=== PATIENT | male | born 1940 | race Hispanic/Latino ===

== ENCOUNTER 2017-01-14 16:28 | Emergency (ER) | payer MEDICARE, OTHER ==
[2017-01-14 17:46] LABS: Basophils % (Auto) 0.6 % (0.0-1.8); Hematocrit 36.7 % (35.5-45.6); Hemoglobin 11.9 gm/dl (11.8-15.2); Mean Corpuscular HGB Conc 32 % (32-34); Mean Corpuscular Hemoglobin 32 pg (28-32); Mean Corpuscular Volume 98 fl (84-94); Platelet Count 170 K/mm3 (140-440); Red Blood Count 3.73 M/mm3 (3.65-5.03); Red Cell Distribution Width 15.7 % (13.2-15.2); White Blood Count 9.4 K/mm3 (4.5-11.0)
[2017-01-14 18:06] LABS: BUN/Creatinine Ratio 10.47; Calcium 9.6 mg/dL (8.4-10.2); Potassium 5.9 mmol/L (3.6-5.0)
[2017-01-14] MEDS ORDERED: XYLOCAINE 1% MPF 5 mL INFILTRATI ONE (19:12)
[2017-01-14] MEDS ORDERED: ROCEPHIN IM ONE (19:12)
[2017-01-14] MEDS ORDERED: DECADRON IM ONE (19:13)
[2017-01-14 19:35] LABS: BUN/Creatinine Ratio 6.66; Calcium 8.5 mg/dL (8.4-10.2); Chloride 99.5 mmol/L (98-107)
[2017-01-14 19:56] LABS: Potassium 4.2 mmol/L (3.6-5.0)
--- NOTE | 2017-01-14 20:00 | Emergency Department Report ---
- General Chief Complaint: Upper Respiratory Infection Stated Complaint: CHEST CONGESTION Time Seen by Provider: 01/14/17 19:12 Source: patient Mode of arrival: Ambulatory Limitations: No Limitations - History of Present Illness MD Complaint: cough, rhinorrhea, nasal congestion -: Gradual Severity: mild Severity scale (0 -10): 3 Consistency: constant Improves With: nothing Worsens With: nothing Associated Symptoms: cough. denies: fever, chills, myalgias, diaphoresis, headache, rhinorrhea, stiff neck, chest pain, shortness of breath, abdominal pain, rash, confusion, right sweats, weight loss - Related Data Home Medications Medication Instructions Recorded Confirmed Last Taken Allopurinol [Zyloprim] 100 mg PO QDAY 05/01/15 10/03/15 10/02/15 Aspirin [Aspirin BABY CHEW TAB] 81 mg PO QDAY 05/01/15 10/03/15 10/02/15 Baking Soda 0.25 tsp PO DAILY 05/01/15 05/01/15 10/02/15 Carvedilol [Carvedilol] 6.25 mg PO BID 05/01/15 10/03/15 10/03/15 05:00 Doxazosin [Cardura] 4 mg PO BID 05/01/15 10/03/15 10/03/15 05:00 Fenofibrate [Fenofibrate] 160 mg PO DAILY 05/01/15 10/03/15 10/02/15 Ferrous Sulfate [Feosol] 325 mg PO BID 05/01/15 10/03/15 10/02/15 Insulin Glargine,Hum.rec.anlog 30 units SUB-Q HS 05/01/15 10/03/15 10/02/15 [Lantus Solostar] Losartan [Cozaar] 100 mg PO QDAY 05/01/15 10/03/15 10/03/15 05:00 Multivit-Min/Iron Fum/Folic AC 1 each PO DAILY 05/01/15 10/03/15 10/02/15 [Ngspp-Igeelbt-Uiicuozd Tablet] [place]-3 Fatty Acids/Fish Oil [Fish 1 each PO DAILY 05/01/15 10/03/15 10/02/15 Oil] Simvastatin [Simvastatin] 40 mg PO DAILY 05/01/15 10/03/15 10/02/15 Previous Rx's Medication Instructions Recorded Last Taken Type HYDROcodone/APAP 5-325 [[place] 1 - 2 each PO Q4HR PRN #30 tablet 05/03/15 Unknown Rx 5/325] Azithromycin [Zithromax Z-AJITH] 250 mg PO DAILY #5 tablet 01/14/17 Unknown Rx Allergies Allergy/AdvReac Type Severity Reaction Status Date / Time No Known Allergies Allergy Verified 05/01/15 08:52 ED Review of Systems ROS: Stated complaint: CHEST CONGESTION Other details as noted in HPI Comment: All other systems reviewed and negative ED Past Medical Hx - Past Medical History Hx Hypertension: Yes Hx Heart Attack/AMI: No (EKG 09/21/13: SR 71) Hx Diabetes: Yes (on insulin) Hx Renal Disease: Yes Hx Seizures: No Hx Kidney Stones: Yes Hx Asthma: Yes (as a child) Hx HIV: No - Surgical History Past Surgical History?: No - Social History Smoking Status: Former Smoker Substance Use Type: None - Medications Home Medications: Home Medications Medication Instructions Recorded Confirmed Last Taken Type Allopurinol [Zyloprim] 100 mg PO QDAY 05/01/15 10/03/15 10/02/15 History Aspirin [Aspirin BABY CHEW TAB] 81 mg PO QDAY 05/01/15 10/03/15 10/02/15 History Baking Soda 0.25 tsp PO DAILY 05/01/15 05/01/15 10/02/15 History Carvedilol [Carvedilol] 6.25 mg PO BID 05/01/15 10/03/15 10/03/15 05:00 History Doxazosin [Cardura] 4 mg PO BID 05/01/15 10/03/15 10/03/15 05:00 History Fenofibrate [Fenofibrate] 160 mg PO DAILY 05/01/15 10/03/15 10/02/15 History Ferrous Sulfate [Feosol] 325 mg PO BID 05/01/15 10/03/15 10/02/15 History Insulin Glargine,Hum.rec.anlog 30 units SUB-Q HS 05/01/15 10/03/15 10/02/15 History [Lantus Solostar] Losartan [Cozaar] 100 mg PO QDAY 05/01/15 10/03/15 10/03/15 05:00 History Multivit-Min/Iron Fum/Folic AC 1 each PO DAILY 05/01/15 10/03/15 10/02/15 History [Rfzsp-Litgjkr-Zxnyudcs Tablet] [place]-3 Fatty Acids/Fish Oil [Fish 1 each PO DAILY 05/01/15 10/03/15 10/02/15 History Oil] Simvastatin [Simvastatin] 40 mg PO DAILY 05/01/15 10/03/15 10/02/15 History HYDROcodone/APAP 5-325 [[place] 1 - 2 each PO Q4HR PRN #30 tablet 05/03/15 Unknown Rx 5/325] Azithromycin [Zithromax Z-AJITH] 250 mg PO DAILY #5 tablet 01/14/17 Unknown Rx ED Physical Exam - General Limitations: No Limitations General appearance: alert, in no apparent distress - Head Head exam: Present: atraumatic, normocephalic - Eye Eye exam: Present: normal appearance, PERRL, EOMI - ENT ENT exam: Present: normal exam, normal orophraynx, mucous membranes moist - Neck Neck exam: Present: normal inspection - Respiratory Respiratory exam: Present: normal lung sounds bilaterally. Absent: respiratory distress, wheezes, rales, rhonchi, stridor - Cardiovascular Cardiovascular Exam: Present: regular rate, normal rhythm. Absent: systolic murmur, diastolic murmur, rubs, gallop - GI/Abdominal GI/Abdominal exam: Present: soft, normal bowel sounds - Rectal Rectal exam: Present: deferred - Extremities Exam Extremities exam: Present: normal inspection - Back Exam Back exam: Present: normal inspection - Neurological Exam Neurological exam: Present: alert, oriented X3 - Psychiatric Psychiatric exam: Present: normal affect, normal mood - Skin Skin exam: Present: warm, dry, intact, normal color. Absent: rash ED Course Vital Signs 01/14/17 01/14/17 17:08 18:51 Temperature 99.9 F H Pulse Rate 79 77 Respiratory 16 16 Rate Blood Pressure 152/69 Blood Pressure 156/64 [Left] O2 Sat by Pulse 93 92 Oximetry ED Medical Decision Making - Lab Data Result diagrams: 01/14/17 17:29 01/14/17 18:56 - Radiology Data Radiology results: report reviewed, image reviewed - Medical Decision Making patient doing well, rocephin and decadron given here , will do prescrption for possible bronchitis, dc and follow up Critical care attestation.: If time is entered above; I have spent that time in minutes in the direct care of this critically ill patient, excluding procedure time. ED Disposition Clinical Impression: Bronchitis Disposition: TO HOME OR SELFCARE Is pt being admited?: No Does the pt Need Aspirin: No Condition: Good Instructions: Chronic Bronchitis (ED), Acute Bronchitis (ED) Prescriptions: Azithromycin [Zithromax Z-AJITH] 250 mg PO DAILY #5 tablet Referrals: PRIMARY CARE, [Primary Care Provider] - 3-5 Days Time of Disposition: 20:00
[2017-01-14 20:17] VITALS: BP 162/65
--- NOTE | 2017-01-15 07:39 | XRay Report ---
ROUTINE CHEST, TWO VIEWS: HISTORY: Shortness of breath. The trachea, heart, mediastinal contour, lung maya and bony thorax are unremarkable. IMPRESSION: No acute cardiopulmonary process.
== END 2017-01-14 20:14 | disposition home or self-care (01) ==
LOC: ED 16:28
DX: J40 Bronchitis, not specified as acute or chronic (principal); I10 Essential (primary) hypertension; E11.9 Type 2 diabetes mellitus without complications; J45.909 Unspecified asthma, uncomplicated; Z87.891 Personal history of nicotine dependence; Z79.4 Long term (current) use of insulin; Z79.82 Long term (current) use of aspirin
CPT/HCPCS: 36415; 71020; 80048; 85025; 87040; 93005; 93010; 96372; 99284; J0696; J1100

== ENCOUNTER 2019-07-04 16:03 | Inpatient (IN) | payer MEDICARE, OTHER ==
[2019-07-04 17:27] LABS: Basophils # (Auto) 0.1 K/mm3 (0.0-0.1); Basophils % (Auto) 1.1 % (0.0-1.8); Eosinophils # (Auto) 0.2 K/mm3 (0.0-0.4); Eosinophils % (Auto) 2.4 % (0.0-4.3); Hematocrit 32.3 % (35.5-45.6); Hemoglobin 10.9 gm/dl (11.8-15.2); Lymphocytes # (Auto) 0.9 K/mm3 (1.2-5.4); Lymphocytes % (Auto) 14.1 % (13.4-35.0); Mean Corpuscular HGB Conc 34 % (32-34); Mean Corpuscular Volume 98 fl (84-94); Monocytes # (Auto) 0.5 K/mm3 (0.0-0.8); Monocytes % (Auto) 8.2 % (0.0-7.3); Platelet Count 208 K/mm3 (140-440); Red Cell Distribution Width 16.8 % (13.2-15.2)
[2019-07-04 17:41] LABS: INR 0.96 (0.87-1.13)
[2019-07-04 17:42] LABS: Partial Thromboplastin Time 35.8 Sec. (24.2-36.6)
[2019-07-04 17:52] LABS: Albumin 3.7 g/dL (3.9-5); Calcium 9.1 mg/dL (8.4-10.2)
--- NOTE | 2019-07-04 18:09 | Cat Scan Report ---
CT BRAIN: 07/04/2019 INDICATION / CLINICAL INFORMATION: ams. COMPARISON: None available. FINDINGS: BRAIN/INTRACRANIAL STRUCTURES: Unenhanced CT images of the brain demonstrate no evidence of acute int racranial abnormality. Ventricles and sulci are prominent in size, consistent with diffuse cerebral atrophy. Chronic white matter hypoattenuation is present throughout the cerebral hemispheric white matter. There is no evidence of acute ischemic injury, hemorrhage, or mass. There are no abnormal extra-axial fluid collections. Atherosclerotic vascular calcifications are present in the distal internal carotid arteries and verte bral arteries. EXTRACRANIAL STRUCTURES: Unremarkable. IMPRESSION: No acute abnormality. Chronic and age-related changes. All CT scans at this location are performed using dose reduction to ALARA by means of automated expos ure control. Signer Name: Jimmy Anderson MD Signed: 07/04/2019 6:04 PM Workstation Name: [id number]
--- NOTE | 2019-07-04 18:24 | Emergency Department Report ---
ED Altered Mental Status HPI - General Chief Complaint: Altered Mental Status Stated Complaint: AMS Time Seen by Provider: 07/04/19 17:11 Source: EMS Mode of arrival: Stretcher Limitations: Altered Mental Status - History of Present Illness Initial Comments: 79-year-old male with history of ESRD, anemia, diabetes, hypertension, presents the ED with altered mental status. Patient was undergoing dialysis when he reportedly began to have hallucinations. Patient was able to finish dialysis and was then transported to the ED. Patient's caregiver is at bedside. She states patient started to become altered for unable to walk 3 days ago. Reports patient has had several falls over the last 3 days. Caregiver states he had fallen on floor this morning when she picked him up for dialysis. Patient has bruises to his hands. He denies any pain. He is currently alert and oriented to self and time. Denies alcohol use. MD Complaint: altered mental status -: days(s) (3) Severity: moderate Consistency of Symptoms: constant Context: unknown Associated Symptoms: denies: chest pain, headaches - Related Data Home Medications Medication Instructions Recorded Confirmed Last Taken Aspirin [Aspirin BABY CHEW TAB] 81 mg PO QDAY 05/01/15 10/03/15 10/02/15 Baking Soda 0.25 tsp PO DAILY 05/01/15 05/01/15 10/02/15 Carvedilol 6.25 mg PO BID 05/01/15 10/03/15 10/03/15 05:00 Doxazosin [Cardura] 4 mg PO BID 05/01/15 10/03/15 10/03/15 05:00 Fenofibrate 160 mg PO DAILY 05/01/15 10/03/15 10/02/15 Ferrous Sulfate [Feosol] 325 mg PO BID 05/01/15 10/03/15 10/02/15 Insulin Glargine,Hum.rec.anlog 30 units SUB-Q HS 05/01/15 10/03/15 10/02/15 [Lantus Solostar] Losartan [Cozaar] 100 mg PO QDAY 05/01/15 10/03/15 10/03/15 05:00 Multivit-Min/Iron Fum/Folic AC 1 each PO DAILY 05/01/15 10/03/15 10/02/15 [Ucpej-Yqbhnla-Mictkkov Tablet] [place]-3 Fatty Acids/Fish Oil [Fish 1 each PO DAILY 05/01/15 10/03/15 10/02/15 Oil] Simvastatin 40 mg PO DAILY 05/01/15 10/03/15 10/02/15 allopurinoL [Zyloprim] 100 mg PO QDAY 05/01/15 10/03/15 10/02/15 Previous Rx's Medication Instructions Recorded Last Taken Type HYDROcodone/APAP 5-325 [[place] 1 - 2 each PO Q4HR PRN #30 tablet 05/03/15 Unknown Rx 5/325] Azithromycin [Zithromax Z-AJITH] 250 mg PO DAILY #5 tablet 01/14/17 Unknown Rx Allergies Allergy/AdvReac Type Severity Reaction Status Date / Time No Known Allergies Allergy Verified 05/01/15 08:52 ED Review of Systems ROS: Stated complaint: AMS Other details as noted in HPI Comment: All other systems reviewed and negative Constitutional: denies: fever Respiratory: denies: cough, shortness of breath Cardiovascular: denies: chest pain Gastrointestinal: denies: abdominal pain, vomiting Neurological: denies: headache ED Past Medical Hx - Past Medical History Previous Medical History?: Yes Hx Hypertension: Yes Hx Heart Attack/AMI: No (EKG 09/21/13: SR 71) Hx Diabetes: Yes (on insulin) Hx Renal Disease: Yes Hx Seizures: No Hx Kidney Stones: Yes Hx Asthma: Yes (as a child) Hx HIV: No - Surgical History Additional Surgical History: fistula to left arm - Social History Smoking Status: Unknown if ever smoked - Medications Home Medications: Home Medications Medication Instructions Recorded Confirmed Last Taken Type Aspirin [Aspirin BABY CHEW TAB] 81 mg PO QDAY 05/01/15 10/03/15 10/02/15 History Baking Soda 0.25 tsp PO DAILY 05/01/15 05/01/15 10/02/15 History Carvedilol 6.25 mg PO BID 05/01/15 10/03/15 10/03/15 05:00 History Doxazosin [Cardura] 4 mg PO BID 05/01/15 10/03/15 10/03/15 05:00 History Fenofibrate 160 mg PO DAILY 05/01/15 10/03/15 10/02/15 History Ferrous Sulfate [Feosol] 325 mg PO BID 05/01/15 10/03/15 10/02/15 History Insulin Glargine,Hum.rec.anlog 30 units SUB-Q HS 05/01/15 10/03/15 10/02/15 History [Lantus Solostar] Losartan [Cozaar] 100 mg PO QDAY 05/01/15 10/03/15 10/03/15 05:00 History Multivit-Min/Iron Fum/Folic AC 1 each PO DAILY 05/01/15 10/03/15 10/02/15 History [Speco-Vtwhkqc-Izjsmfrk Tablet] [place]-3 Fatty Acids/Fish Oil [Fish 1 each PO DAILY 05/01/15 10/03/15 10/02/15 History Oil] Simvastatin 40 mg PO DAILY 05/01/15 10/03/15 10/02/15 History allopurinoL [Zyloprim] 100 mg PO QDAY 05/01/15 10/03/15 10/02/15 History HYDROcodone/APAP 5-325 [[place] 1 - 2 each PO Q4HR PRN #30 tablet 05/03/15 10/03/15 Unknown Rx 5/325] Azithromycin [Zithromax Z-AJITH] 250 mg PO DAILY #5 tablet 01/14/17 Unknown Rx ED Physical Exam - General Limitations: Altered Mental Status General appearance: alert - Head Head exam: Present: atraumatic, normocephalic - Eye Eye exam: Present: normal appearance, EOMI - ENT ENT exam: Present: mucous membranes moist - Neck Neck exam: Present: normal inspection - Respiratory Respiratory exam: Present: normal lung sounds bilaterally. Absent: respiratory distress - Cardiovascular Cardiovascular Exam: Present: regular rate, normal rhythm - GI/Abdominal GI/Abdominal exam: Present: soft. Absent: distended, tenderness - Extremities Exam Extremities exam: Present: other (bruising to dorsum of left hand) - Neurological Exam Neurological exam: Present: alert, other (moves all extremities). Absent: oriented X3 (oriented to self and time) - Psychiatric Psychiatric exam: Present: normal affect, normal mood - Skin Skin exam: Present: ecchymosis ED Course Vital Signs 07/04/19 07/04/19 07/04/19 16:42 16:47 16:50 Temperature 99.2 F Pulse Rate 79 79 76 Respiratory 15 16 11 L Rate Blood Pressure 194/71 Blood Pressure 194/71 [Right] O2 Sat by Pulse 100 97 Oximetry 07/04/19 07/04/19 07/04/19 17:00 17:10 17:20 Temperature Pulse Rate 78 79 81 Respiratory 13 14 11 L Rate Blood Pressure 194/71 187/81 187/81 Blood Pressure [Right] O2 Sat by Pulse 96 96 96 Oximetry 07/04/19 07/04/19 07/04/19 17:30 17:54 18:00 Temperature Pulse Rate 85 Respiratory 10 L Rate Blood Pressure 187/81 193/74 193/74 Blood Pressure [Right] O2 Sat by Pulse 95 97 96 Oximetry 07/04/19 07/04/19 07/04/19 18:10 18:20 18:30 Temperature Pulse Rate 82 80 79 Respiratory 15 14 11 L Rate Blood Pressure 182/77 182/77 182/77 Blood Pressure [Right] O2 Sat by Pulse 84 Oximetry 07/04/19 07/04/19 07/04/19 18:37 18:40 18:50 Temperature 98.2 F Pulse Rate 76 76 76 Respiratory 18 11 L 10 L Rate Blood Pressure 168/60 168/60 Blood Pressure 163/60 [Right] O2 Sat by Pulse 98 93 Oximetry 07/04/19 07/04/19 07/04/19 19:00 19:10 19:20 Temperature Pulse Rate 75 78 73 Respiratory 12 13 11 L Rate Blood Pressure 168/60 161/49 161/49 Blood Pressure [Right] O2 Sat by Pulse 94 98 94 Oximetry 07/04/19 07/04/19 07/04/19 19:30 19:40 19:50 Temperature Pulse Rate 72 73 77 Respiratory 11 L 13 12 Rate Blood Pressure 161/49 168/60 161/49 Blood Pressure [Right] O2 Sat by Pulse 84 93 96 Oximetry 07/04/19 07/04/19 07/04/19 20:00 20:10 20:20 Temperature Pulse Rate 84 81 79 Respiratory 26 H 14 12 Rate Blood Pressure 161/49 152/61 152/61 Blood Pressure [Right] O2 Sat by Pulse 93 92 86 Oximetry 07/04/19 07/04/19 07/04/19 20:30 20:40 20:50 Temperature Pulse Rate 78 77 76 Respiratory 13 12 11 L Rate Blood Pressure 152/61 144/53 144/53 Blood Pressure [Right] O2 Sat by Pulse 98 92 95 Oximetry 07/04/19 07/04/19 07/04/19 21:00 21:10 21:20 Temperature Pulse Rate 74 74 71 Respiratory 11 L 12 10 L Rate Blood Pressure 158/58 158/58 158/58 Blood Pressure [Right] O2 Sat by Pulse 96 82 L 82 L Oximetry 07/04/19 07/04/19 07/04/19 21:30 21:40 21:50 Temperature Pulse Rate 72 72 83 Respiratory 11 L 11 L 13 Rate Blood Pressure 158/58 131/51 131/51 Blood Pressure [Right] O2 Sat by Pulse 84 82 L 99 Oximetry 07/04/19 07/04/19 07/04/19 22:00 22:10 22:20 Temperature Pulse Rate 88 86 89 Respiratory 11 L 15 24 Rate Blood Pressure 131/51 168/61 168/61 Blood Pressure 168/61 [Right] O2 Sat by Pulse 97 Oximetry 07/04/19 07/04/19 07/04/19 22:30 22:40 22:50 Temperature Pulse Rate 90 90 84 Respiratory 17 19 16 Rate Blood Pressure 168/61 175/61 175/61 Blood Pressure [Right] O2 Sat by Pulse Oximetry 07/04/19 07/04/19 07/04/19 23:00 23:10 23:20 Temperature Pulse Rate 81 87 85 Respiratory 15 21 16 Rate Blood Pressure 175/61 175/61 175/61 Blood Pressure [Right] O2 Sat by Pulse Oximetry 07/04/19 07/04/19 07/04/19 23:30 23:40 23:50 Temperature Pulse Rate 94 H 99 H 102 H Respiratory 17 20 25 H Rate Blood Pressure 175/61 175/61 175/61 Blood Pressure [Right] O2 Sat by Pulse Oximetry 07/05/19 07/05/19 00:00 00:10 Temperature Pulse Rate 94 H 91 H Respiratory 20 16 Rate Blood Pressure 175/61 175/61 Blood Pressure [Right] O2 Sat by Pulse Oximetry - Reevaluation(s) Reevaluation #1: 07/04/19 19:37 UDS positive for opiates. Pt takes tylenol #3 for chronic shoulder pain - Lab Data Result diagrams: 07/04/19 17:08 07/04/19 17:08 Lab Results 07/04/19 07/04/19 07/04/19 Range/Units 16:46 17:08 17:08 WBC 6.2 (4.5-11.0) K/mm3 RBC 3.30 L (3.65-5.03) M/mm3 Hgb 10.9 L (11.8-15.2) gm/dl Hct 32.3 L (35.5-45.6) % MCV 98 H (84-94) fl MCH 33 H (28-32) pg MCHC 34 (32-34) % RDW 16.8 H (13.2-15.2) % Plt Count 208 (140-440) K/mm3 Lymph % (Auto) 14.1 (13.4-35.0) % [place] % (Auto) 8.2 H (0.0-7.3) % Eos % (Auto) 2.4 (0.0-4.3) % Baso % (Auto) 1.1 (0.0-1.8) % Lymph # 0.9 L (1.2-5.4) K/mm3 [place] # 0.5 (0.0-0.8) K/mm3 Eos # 0.2 (0.0-0.4) K/mm3 Baso # 0.1 (0.0-0.1) K/mm3 Seg Neutrophils % 74.2 H (40.0-70.0) % Seg Neutrophils # 4.6 (1.8-7.7) K/mm3 PT 12.9 (12.2-14.9) Sec. INR 0.96 (0.87-1.13) APTT 35.8 (24.2-36.6) Sec. Sodium (137-145) mmol/L Potassium (3.6-5.0) mmol/L Chloride (98-107) mmol/L Carbon Dioxide (22-30) mmol/L Anion Gap mmol/L BUN (9-20) mg/dL Creatinine (0.8-1.5) mg/dL Estimated GFR ml/min BUN/Creatinine Ratio % Glucose (75-100) mg/dL POC Glucose 75 (70-105) Calcium (8.4-10.2) mg/dL Total Bilirubin (0.1-1.2) mg/dL AST (5-40) units/L ALT (7-56) units/L Alkaline Phosphatase (35-129) units/L Ammonia (25-60) umol/L Troponin T (0.00-0.029) ng/mL Total Protein (6.3-8.2) g/dL Albumin (3.9-5) g/dL Albumin/Globulin Ratio % Triglycerides (2-149) mg/dL Cholesterol (50-199) mg/dL LDL Cholesterol Direct (50-130) mg/dL HDL Cholesterol (40-59) mg/dL Cholesterol/HDL Ratio % Urine Color (Yellow) Urine Turbidity (Clear) Urine pH (5.0-7.0) Ur Specific [place] (1.003-1.030) Urine Protein (Negative) mg/dL Urine Glucose (UA) (Negative) mg/dL Urine Ketones (Negative) mg/dL Urine Blood (Negative) Urine Nitrite (Negative) Urine Bilirubin (Negative) Urine Urobilinogen (<2.0) mg/dL Ur Leukocyte Esterase (Negative) Urine WBC (Auto) (0.0-6.0) /HPF Urine RBC (Auto) (0.0-6.0) /HPF Hyaline Casts /LPF Urine Opiates Screen Urine Methadone Screen Ur Barbiturates Screen Ur Phencyclidine Scrn Ur Amphetamines Screen U Benzodiazepines Scrn Urine Cocaine Screen U Marijuana (THC) Screen Drugs of Abuse Note Plasma/Serum Alcohol (0-0.07) % 07/04/19 07/04/19 07/04/19 Range/Units 17:08 17:55 18:03 WBC (4.5-11.0) K/mm3 RBC (3.65-5.03) M/mm3 Hgb (11.8-15.2) gm/dl Hct (35.5-45.6) % MCV (84-94) fl MCH (28-32) pg MCHC (32-34) % RDW (13.2-15.2) % Plt Count (140-440) K/mm3 Lymph % (Auto) (13.4-35.0) % [place] % (Auto) (0.0-7.3) % Eos % (Auto) (0.0-4.3) % Baso % (Auto) (0.0-1.8) % Lymph # (1.2-5.4) K/mm3 [place] # (0.0-0.8) K/mm3 Eos # (0.0-0.4) K/mm3 Baso # (0.0-0.1) K/mm3 Seg Neutrophils % (40.0-70.0) % Seg Neutrophils # (1.8-7.7) K/mm3 PT (12.2-14.9) Sec. INR (0.87-1.13) APTT (24.2-36.6) Sec. Sodium 141 (137-145) mmol/L Potassium 3.8 (3.6-5.0) mmol/L Chloride 100.2 (98-107) mmol/L Carbon Dioxide 25 (22-30) mmol/L Anion Gap 20 mmol/L BUN 23 H (9-20) mg/dL Creatinine 4.3 H (0.8-1.5) mg/dL Estimated GFR 13 ml/min BUN/Creatinine Ratio 5 % Glucose 74 L (75-100) mg/dL POC Glucose (70-105) Calcium 9.1 (8.4-10.2) mg/dL Total Bilirubin 0.80 (0.1-1.2) mg/dL AST 117 H (5-40) units/L ALT 64 H (7-56) units/L Alkaline Phosphatase 46 (35-129) units/L Ammonia (25-60) umol/L Troponin T 0.166 H* (0.00-0.029) ng/mL Total Protein 6.5 (6.3-8.2) g/dL Albumin 3.7 L (3.9-5) g/dL Albumin/Globulin Ratio 1.3 % Triglycerides 132 (2-149) mg/dL Cholesterol 102 (50-199) mg/dL LDL Cholesterol Direct 45 L (50-130) mg/dL HDL Cholesterol 32 L (40-59) mg/dL Cholesterol/HDL Ratio 3.18 % Urine Color Yellow (Yellow) Urine Turbidity Clear (Clear) Urine pH 7.0 (5.0-7.0) Ur Specific [place] 1.016 (1.003-1.030) Urine Protein >500 (Negative) mg/dL Urine Glucose (UA) 150 (Negative) mg/dL Urine Ketones Neg (Negative) mg/dL Urine Blood Sm (Negative) Urine Nitrite Neg (Negative) Urine Bilirubin Neg (Negative) Urine Urobilinogen < 2.0 (<2.0) mg/dL Ur Leukocyte Esterase Neg (Negative) Urine WBC (Auto) 1.0 (0.0-6.0) /HPF Urine RBC (Auto) < 1.0 (0.0-6.0) /HPF Hyaline Casts 3 /LPF Urine Opiates Screen Urine Methadone Screen Ur Barbiturates Screen Ur Phencyclidine Scrn Ur Amphetamines Screen U Benzodiazepines Scrn Urine Cocaine Screen U Marijuana (THC) Screen Drugs of Abuse Note Plasma/Serum Alcohol < 0.01 (0-0.07) % 07/04/19 07/04/19 Range/Units 18:03 18:24 WBC (4.5-11.0) K/mm3 RBC (3.65-5.03) M/mm3 Hgb (11.8-15.2) gm/dl Hct (35.5-45.6) % MCV (84-94) fl MCH (28-32) pg MCHC (32-34) % RDW (13.2-15.2) % Plt Count (140-440) K/mm3 Lymph % (Auto) (13.4-35.0) % [place] % (Auto) (0.0-7.3) % Eos % (Auto) (0.0-4.3) % Baso % (Auto) (0.0-1.8) % Lymph # (1.2-5.4) K/mm3 [place] # (0.0-0.8) K/mm3 Eos # (0.0-0.4) K/mm3 Baso # (0.0-0.1) K/mm3 Seg Neutrophils % (40.0-70.0) % Seg Neutrophils # (1.8-7.7) K/mm3 PT (12.2-14.9) Sec. INR (0.87-1.13) APTT (24.2-36.6) Sec. Sodium (137-145) mmol/L Potassium (3.6-5.0) mmol/L Chloride (98-107) mmol/L Carbon Dioxide (22-30) mmol/L Anion Gap mmol/L BUN (9-20) mg/dL Creatinine (0.8-1.5) mg/dL Estimated GFR ml/min BUN/Creatinine Ratio % Glucose (75-100) mg/dL POC Glucose (70-105) Calcium (8.4-10.2) mg/dL Total Bilirubin (0.1-1.2) mg/dL AST (5-40) units/L ALT (7-56) units/L Alkaline Phosphatase (35-129) units/L Ammonia 44.0 (25-60) umol/L Troponin T (0.00-0.029) ng/mL Total Protein (6.3-8.2) g/dL Albumin (3.9-5) g/dL Albumin/Globulin Ratio % Triglycerides (2-149) mg/dL Cholesterol (50-199) mg/dL LDL Cholesterol Direct (50-130) mg/dL HDL Cholesterol (40-59) mg/dL Cholesterol/HDL Ratio % Urine Color (Yellow) Urine Turbidity (Clear) Urine pH (5.0-7.0) Ur Specific [place] (1.003-1.030) Urine Protein (Negative) mg/dL Urine Glucose (UA) (Negative) mg/dL Urine Ketones (Negative) mg/dL Urine Blood (Negative) Urine Nitrite (Negative) Urine Bilirubin (Negative) Urine Urobilinogen (<2.0) mg/dL Ur Leukocyte Esterase (Negative) Urine WBC (Auto) (0.0-6.0) /HPF Urine RBC (Auto) (0.0-6.0) /HPF Hyaline Casts /LPF Urine Opiates Screen Presumptive positive Urine Methadone Screen Presumptive negative Ur Barbiturates Screen Presumptive negative Ur Phencyclidine Scrn Presumptive negative Ur Amphetamines Screen Presumptive negative U Benzodiazepines Scrn Presumptive negative Urine Cocaine Screen Presumptive negative U Marijuana (THC) Screen Presumptive negative Drugs of Abuse Note Disclamer Plasma/Serum Alcohol (0-0.07) % - EKG Data -: EKG Interpreted by Mi EKG shows normal: sinus rhythm, intervals, QRS complexes Rate: normal Interpretation: no acute changes, LVH, other (incomplete LBBB) - Radiology Data Radiology results: report reviewed, image reviewed - Medical Decision Making - altered mental status over the last few days w/ multiple falls - CT Head negative for any acute abnormalities - hx ESRD, received dialysis today, hallucinating while at dialysis - troponin elevated, however, likely due to renal function as EKG shows no ST elevations and pt having no chest pain - no evidence of hallucinations while here in ED, pt alert and oriented - no clear cause of pt's altered mental status - will admit to hospitalist for further management - Differential Diagnosis CVA, intracranial injury, infection Critical care attestation.: If time is entered above; I have spent that time in minutes in the direct care of this critically ill patient, excluding procedure time. ED Disposition Clinical Impression: Acute encephalopathy, Multiple falls, Hallucination Disposition: 09 OP ADMIT IP TO THIS HOSP Is pt being admited?: Yes Condition: Stable Time of Disposition: 19:41
[2019-07-04 18:49] LABS: Bilirubin,Urine NEG (Negative); Blood,Urine SM (Negative); Color,Urine Yellow (Yellow); Hyaline Casts,Urine 3 /LPF; Protein,Urine >500 mg/dL (Negative); RBC,Urine < 1.0 /HPF (0.0-6.0); Urobilinogen,Urine < 2.0 mg/dL (<2.0)
--- NOTE | 2019-07-04 18:50 | XRay Report ---
CHEST 1 VIEW INDICATION: ams. COMPARISON: 01/14/2017. FINDINGS: Support devices: None. Heart: Moderate cardiomegaly. Lungs/Pleura: Small right basilar effusion with associated volume loss. The left lung is clear. Additional findings: None. IMPRESSION: 1. Increasing cardiomegaly. 2. Small right effusion with associated volume loss. Signer Name: Jerald Carrasco MD Signed: 07/04/2019 6:46 PM Workstation Name: [id number]
[2019-07-04 18:54] LABS: Amphetamine Screen,Urine PRESUMPTIVE NEGATIVE; Benzodiazepines Screen,Urine PRESUMPTIVE NEGATIVE; Cannabinoid Screen,Urine PRESUMPTIVE NEGATIVE; Cocaine Screen,Urine PRESUMPTIVE NEGATIVE; Methadone Screen,Urine PRESUMPTIVE NEGATIVE
[2019-07-04 19:00] LABS: Chol/HDL Ratio 3.18 %
[2019-07-04 19:14] LABS: Opiate Screen,Urine PRESUMPTIVE POSITIVE
--- NOTE | 2019-07-04 19:50 | History and Physical Report ---
History of Present Illness Chief complaint: He got confused during dialysis History of present illness: 79-year-old male with ESRD on HD (M, W, F), HTN, DM, presents to ED for evaluation. Patient is confused and unable to provide detailed history at time of exam. Patient is at bedside during exam and interview and provides history. As per the patient's the patient presented to his dialysis center for his routine scheduled dialysis today. Patient was unable to finish his entire dialysis session due to acute onset of confusion and hallucinations. EMS was notified and upon arrival the patient was found to be confused and in distress. Patient transported to [facility] for further care and evaluation. Patient seen and evaluated in the emergency department. Lab and imaging studies reviewed. Patient found to have end-stage renal disease, metabolic encephalopathy, dialysis disequilibrium syndrome. Patient placed in observation status and admitted to medical floor for medical stabilization due to increased risk of decompensation. Nephrology team consulted in ED. No reports of fever, chills, chest pain, palpitations, productive cough, syncope, headache, seizures, loss of bowel or bladder continence, skin rash, or recent ill contacts. No prior admission for review. All listed medication have been reconciled at time of admission. No further history obtainable. Past History Past Medical History: diabetes, ESRD, hypertension, other (See HPI) Past Surgical History: Other (Dialysis access) Social history: , lives with family. denies: smoking, alcohol abuse, prescription drug abuse Family history: diabetes, hypertension Medications and Allergies Allergies Allergy/AdvReac Type Severity Reaction Status Date / Time No Known Allergies Allergy Verified 05/01/15 08:52 Home Medications Medication Instructions Recorded Confirmed Last Taken Type Aspirin [Aspirin BABY CHEW TAB] 81 mg PO QDAY 05/01/15 10/03/15 10/02/15 History Baking Soda 0.25 tsp PO DAILY 05/01/15 05/01/15 10/02/15 History Carvedilol 6.25 mg PO BID 05/01/15 10/03/15 10/03/15 05:00 History Doxazosin [Cardura] 4 mg PO BID 05/01/15 10/03/15 10/03/15 05:00 History Fenofibrate 160 mg PO DAILY 05/01/15 10/03/15 10/02/15 History Ferrous Sulfate [Feosol] 325 mg PO BID 05/01/15 10/03/15 10/02/15 History Insulin Glargine,Hum.rec.anlog 30 units SUB-Q HS 05/01/15 10/03/15 10/02/15 History [Lantus Solostar] Losartan [Cozaar] 100 mg PO QDAY 05/01/15 10/03/15 10/03/15 05:00 History Multivit-Min/Iron Fum/Folic AC 1 each PO DAILY 05/01/15 10/03/15 10/02/15 History [Qqyhe-Ukoxuvk-Mdlrlrjk Tablet] [place]-3 Fatty Acids/Fish Oil [Fish 1 each PO DAILY 05/01/15 10/03/15 10/02/15 History Oil] Simvastatin 40 mg PO DAILY 05/01/15 10/03/15 10/02/15 History allopurinoL [Zyloprim] 100 mg PO QDAY 05/01/15 10/03/15 10/02/15 History HYDROcodone/APAP 5-325 [[place] 1 - 2 each PO Q4HR PRN #30 tablet 05/03/15 10/03/15 Unknown Rx 5/325] Azithromycin [Zithromax Z-AJITH] 250 mg PO DAILY #5 tablet 01/14/17 Unknown Rx Review of Systems ROS unobtainable: due to mental status Exam - Constitutional Vitals: Temp Pulse Resp BP Pulse Ox 98.2 F 76 18 163/60 98 07/04/19 18:37 07/04/19 18:37 07/04/19 18:37 07/04/19 18:37 07/04/19 18:37 General appearance: Present: mild distress, well-nourished - EENT Eyes: Present: PERRL ENT: hearing intact, clear oral mucosa - Neck Neck: Present: supple, normal ROM - Respiratory Respiratory effort: normal Respiratory: bilateral: CTA - Cardiovascular Heart Sounds: Present: S1 & S2. Absent: rub, click - Extremities Extremities: pulses symmetrical, No edema Peripheral Pulses: within normal limits - Abdominal General gastrointestinal: Present: soft, non-tender, non-distended, normal bowel sounds Male genitourinary: Present: normal - Integumentary Integumentary: Present: clear, warm, dry - Musculoskeletal Musculoskeletal: generalized weakness - Psychiatric Psychiatric: no appropriate mood/affect, no intact judgment & insight, no memory intact - Neurologic Neurologic: CNII-XII intact, no focal deficits, moves all extremities, no gait normal Results - Labs CBC & Chem 7: 07/04/19 17:08 07/04/19 17:08 Labs: Abnormal lab results 07/04/19 07/04/19 Range/Units 17:08 17:08 RBC 3.30 L (3.65-5.03) M/mm3 Hgb 10.9 L (11.8-15.2) gm/dl Hct 32.3 L (35.5-45.6) % MCV 98 H (84-94) fl MCH 33 H (28-32) pg RDW 16.8 H (13.2-15.2) % [place] % (Auto) 8.2 H (0.0-7.3) % Lymph # 0.9 L (1.2-5.4) K/mm3 Seg Neutrophils % 74.2 H (40.0-70.0) % BUN 23 H (9-20) mg/dL Creatinine 4.3 H (0.8-1.5) mg/dL Glucose 74 L (75-100) mg/dL AST 117 H (5-40) units/L ALT 64 H (7-56) units/L Troponin T 0.166 H* (0.00-0.029) ng/mL Albumin 3.7 L (3.9-5) g/dL LDL Cholesterol Direct 45 L (50-130) mg/dL HDL Cholesterol 32 L (40-59) mg/dL Assessment and Plan - Patient Problems (1) End stage renal disease Current Visit: Yes Status: Acute Plan to address problem: Nephrology consulted in ED, BMP, dialysis as per nephrology team, strict I's/O, avoid nephrotoxic agents. (2) Metabolic encephalopathy Current Visit: Yes Status: Acute Plan to address problem: CT head, neuro check, aspiration precautions, seizure precautions, supportive care. (3) Dialysis disequilibrium syndrome Current Visit: Yes Status: Acute Plan to address problem: Supportive care, IV fluid resuscitation therapy as clinically indicated and tolerated, neurochecks, serial physical exam, fall precautions, (4) Diabetes Current Visit: Yes Status: Acute Plan to address problem: Consistent carbohydrate diet when awake and alert only, sliding scale insulin therapy, Accu-Chek, (5) DVT prophylaxis Current Visit: Yes Status: Acute Plan to address problem: SCD to bilateral lower extremities while in bed, prophylactic heparin. (6) Advance care planning Current Visit: Yes Status: Acute Plan to address problem: Patient is full code, disease education conducted at the bedside, patient acknowledges understanding and agreement with care plan. +30 minutes.
[2019-07-04] MEDS ORDERED: ACETAMINOPHEN 325 MG TAB PO PRN (19:55)
[2019-07-04] MEDS ORDERED: ALBUTEROL 2.5 MG/3 ML NEBU IH PRN (19:55)
[2019-07-04] MEDS ORDERED: ONDANSETRON 4 MG/2 ML INJ IV PRN (19:55)
[2019-07-04 20:52] LABS: Free T4 (Free Thyroxine) 1.19 ng/dL (0.76-1.46)
[2019-07-05] MEDS: PRAVASTATIN 80 MG TAB PO SCH ×2 (01:45→22:04)
[2019-07-05] MEDS: FERROUS SULFATE 325 MG TAB PO SCH ×3 (01:45→22:04)
[2019-07-05] MEDS: DOXAZOSIN 4 MG TAB PO SCH ×3 (01:45→22:04)
[2019-07-05] MEDS: carvediloL 6.25 MG TAB PO SCH ×3 (01:46→22:04)
[2019-07-05 06:20] LABS: Calcium 8.7 mg/dL (8.4-10.2)
--- NOTE | 2019-07-05 08:23 | Progress Note ---
Assessment and Plan Assessment and plan: --metabolic encephalopathy;Multifactorial --End-stage renal disease on hemodialysis; HD per schedule, nephrology consulted --Type 2 diabetes mellitus; Accu-Chek sliding scale coverage ADA diet and insulin as needed --Hypertensive urgency; Resume home antihypertensives and PRN medications --Acute psychosis/hallucinations; Consult psych if no improvement --DVT prophylaxis; Heparin renal dose --Full CODE STATUS; Monitor closely and adjust management as needed Plan of care reviewed with the patient's nurse and The significant other at the bedside Search Director recommendations noted and 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 Case management/socially responsible investment adviser processing placement Disposition; continue inpatient management DC/SNF placement when processed. History Interval history: Patient seen and examined medical records reviewed Patient is admitted with altered level of consciousness hallucinations At the middle of his hemodialysis Today patient is more alert still confused Patient significant other is at the bedside Vital signs noted Hospitalist Physical - Constitutional Vitals: Temp Pulse Resp BP Pulse Ox 98.0 F 73 18 141/53 92 07/05/19 07:40 07/05/19 07:40 07/05/19 07:40 07/05/19 07:40 07/05/19 07:40 General appearance: Present: mild distress, well-nourished, other (Confused at times) - EENT Eyes: Present: PERRL, EOM intact - Neck Neck: Present: supple, normal ROM - Respiratory Respiratory effort: normal Respiratory: bilateral: diminished, negative: rales, rhonchi, wheezing - Cardiovascular Rhythm: regular Heart Sounds: Present: S1 & S2 - Extremities Extremities: no ischemia, No edema - Abdominal General gastrointestinal: soft, non-tender, non-distended, normal bowel sounds - Integumentary Integumentary: Present: clear, warm - Psychiatric Psychiatric: other (Confused) - Neurologic Neurologic: other (Confused) Results - Labs CBC & Chem 7: 07/04/19 17:08 07/05/19 05:29 Labs: Laboratory Last Values WBC 6.2 K/mm3 (4.5-11.0) 07/04/19 17:08 RBC 3.30 M/mm3 (3.65-5.03) L 07/04/19 17:08 Hgb 10.9 gm/dl (11.8-15.2) L 07/04/19 17:08 Hct 32.3 % (35.5-45.6) L 07/04/19 17:08 MCV 98 fl (84-94) H 07/04/19 17:08 MCH 33 pg (28-32) H 07/04/19 17:08 MCHC 34 % (32-34) 07/04/19 17:08 RDW 16.8 % (13.2-15.2) H 07/04/19 17:08 Plt Count 208 K/mm3 (140-440) 07/04/19 17:08 Lymph % (Auto) 14.1 % (13.4-35.0) 07/04/19 17:08 [place] % (Auto) 8.2 % (0.0-7.3) H 07/04/19 17:08 Eos % (Auto) 2.4 % (0.0-4.3) 07/04/19 17:08 Baso % (Auto) 1.1 % (0.0-1.8) 07/04/19 17:08 Lymph # 0.9 K/mm3 (1.2-5.4) L 07/04/19 17:08 [place] # 0.5 K/mm3 (0.0-0.8) 07/04/19 17:08 Eos # 0.2 K/mm3 (0.0-0.4) 07/04/19 17:08 Baso # 0.1 K/mm3 (0.0-0.1) 07/04/19 17:08 Seg Neutrophils % 74.2 % (40.0-70.0) H 07/04/19 17:08 Seg Neutrophils # 4.6 K/mm3 (1.8-7.7) 07/04/19 17:08 PT 12.9 Sec. (12.2-14.9) 07/04/19 17:08 INR 0.96 (0.87-1.13) 07/04/19 17:08 APTT 35.8 Sec. (24.2-36.6) 07/04/19 17:08 Sodium 142 mmol/L (137-145) 07/05/19 05:29 Potassium 4.0 mmol/L (3.6-5.0) 07/05/19 05:29 Chloride 102.8 mmol/L (98-107) 07/05/19 05:29 Carbon Dioxide 24 mmol/L (22-30) 07/05/19 05:29 Anion Gap 19 mmol/L 07/05/19 05:29 BUN 34 mg/dL (9-20) H 07/05/19 05:29 Creatinine 5.6 mg/dL (0.8-1.5) H 07/05/19 05:29 Estimated GFR 10 ml/min 07/05/19 05:29 BUN/Creatinine Ratio 6 % 07/05/19 05:29 Glucose 82 mg/dL (75-100) 07/05/19 05:29 POC Glucose 63 (70-105) L 07/05/19 02:41 Calcium 8.7 mg/dL (8.4-10.2) 07/05/19 05:29 Total Bilirubin 0.80 mg/dL (0.1-1.2) 07/04/19 17:08 AST 117 units/L (5-40) H 07/04/19 17:08 ALT 64 units/L (7-56) H 07/04/19 17:08 Alkaline Phosphatase 46 units/L (35-129) 07/04/19 17:08 Ammonia 44.0 umol/L (25-60) 07/04/19 18:24 Troponin T 0.166 ng/mL (0.00-0.029) H* 07/04/19 17:08 Total Protein 6.5 g/dL (6.3-8.2) 07/04/19 17:08 Albumin 3.7 g/dL (3.9-5) L 07/04/19 17:08 Albumin/Globulin Ratio 1.3 % 07/04/19 17:08 Triglycerides 132 mg/dL (2-149) 07/04/19 17:08 Cholesterol 102 mg/dL (50-199) 07/04/19 17:08 LDL Cholesterol Direct 45 mg/dL (50-130) L 07/04/19 17:08 HDL Cholesterol 32 mg/dL (40-59) L 07/04/19 17:08 Cholesterol/HDL Ratio 3.18 % 07/04/19 17:08 TSH 1.850 mlU/mL (0.270-4.200) 07/04/19 20:06 Free T4 1.19 ng/dL (0.76-1.46) 07/04/19 20:06 Urine Color Yellow (Yellow) 07/04/19 18:03 Urine Turbidity Clear (Clear) 07/04/19 18:03 Urine pH 7.0 (5.0-7.0) 07/04/19 18:03 Ur Specific [place] 1.016 (1.003-1.030) 07/04/19 18:03 Urine Protein >500 mg/dL (Negative) 07/04/19 18:03 Urine Glucose (UA) 150 mg/dL (Negative) 07/04/19 18:03 Urine Ketones Neg mg/dL (Negative) 07/04/19 18:03 Urine Blood Sm (Negative) 07/04/19 18:03 Urine Nitrite Neg (Negative) 07/04/19 18:03 Urine Bilirubin Neg (Negative) 07/04/19 18:03 Urine Urobilinogen < 2.0 mg/dL (<2.0) 07/04/19 18:03 Ur Leukocyte Esterase Neg (Negative) 07/04/19 18:03 Urine WBC (Auto) 1.0 /HPF (0.0-6.0) 07/04/19 18:03 Urine RBC (Auto) < 1.0 /HPF (0.0-6.0) 07/04/19 18:03 Hyaline Casts 3 /LPF 07/04/19 18:03 Urine Opiates Screen Presumptive positive 07/04/19 18:03 Urine Methadone Screen Presumptive negative 07/04/19 18:03 Ur Barbiturates Screen Presumptive negative 07/04/19 18:03 Ur Phencyclidine Scrn Presumptive negative 07/04/19 18:03 Ur Amphetamines Screen Presumptive negative 07/04/19 18:03 U Benzodiazepines Scrn Presumptive negative 07/04/19 18:03 Urine Cocaine Screen Presumptive negative 07/04/19 18:03 U Marijuana (THC) Screen Presumptive negative 07/04/19 18:03 Drugs of Abuse Note Disclamer 07/04/19 18:03 Plasma/Serum Alcohol < 0.01 % (0-0.07) 07/04/19 17:55 Active Medications - Current Medications Current Medications: Generic Name Dose Route Start Last Admin Trade Name Freq PRN Reason Stop Dose Admin Acetaminophen 650 mg 07/04/19 19:55 Tylenol PO Q4H PRN Pain MILD(1-3)/Fever >100.5/ANDRADE Acetaminophen/Hydrocodone Bitart 1 each 07/04/19 19:56 [place] 5/325 PO Q8HR PRN PAIN Albuterol 2.5 mg 07/04/19 19:55 Proventil IH Q4HRT PRN Shortness Of Breath Allopurinol 100 mg 07/05/19 10:00 Zyloprim PO QDAY [facility] Aspirin 81 mg 07/05/19 10:00 Baby Aspirin PO QDAY [facility] Carvedilol 6.25 mg 07/04/19 22:00 07/05/19 01:46 Coreg PO 6.25 mg BID [facility] Administration Doxazosin Mesylate 4 mg 07/04/19 22:00 07/05/19 01:45 Cardura PO 4 mg BID [facility] Administration Fenofibrate 145 mg 07/05/19 10:00 Tricor PO DAILY [facility] Ferrous Sulfate 325 mg 07/04/19 22:00 07/05/19 01:45 Feosol PO 325 mg BID [facility] Administration Fish Oil 1,000 mg 07/05/19 10:00 Fish Oil PO DAILY [facility] Losartan Potassium 100 mg 07/05/19 10:00 Cozaar PO QDAY [facility] Multivitamins/Minerals 1 each 07/05/19 10:00 Theragran-M Tab PO QDAY [facility] Ondansetron HCl 4 mg 07/04/19 19:55 Zofran IV Q8H PRN Nausea And Vomiting Pravastatin Sodium 80 mg 07/04/19 22:00 07/05/19 01:45 Pravachol PO 80 mg QHS [facility] Administration Sodium Chloride 10 ml 07/04/19 22:00 07/05/19 01:47 Sodium Chloride Flush Syringe 10 Ml IV 10 ml BID [facility] Administration Sodium Chloride 10 ml 07/04/19 19:55 Sodium Chloride Flush Syringe 10 Ml IV PRN PRN LINE FLUSH
[2019-07-05] MEDS ORDERED: hydrALAZINE 20 MG/1 ML INJ IV PRN (08:25)
[2019-07-05 09:18] LABS: Creatine Kinase MB 12.7 ng/mL (0.0-4.0)
--- NOTE | 2019-07-05 09:32 | Consultation ---
History of Present Illness - Reason for Consult Consult date: 07/05/19 end stage renal disease - History of Present Illness This is a 79 year-old man with ESRD who presents for concerns for altered mentation. Patient usually dialyzes MWF at [facility]. Last HD 07/04/2019; per chart review, brought patient to ED for hallucinations and altered mentation towards end of dialysis. Did complete most of treatment per records. Patient unable to provide further history this AM due to confusion. Past History Past Medical History: diabetes, ESRD, hypertension, other (See HPI) Past Surgical History: Other (Dialysis access) Social history: , lives with family. denies: smoking, alcohol abuse, prescription drug abuse Family history: diabetes, hypertension Medications and Allergies Allergies Allergy/AdvReac Type Severity Reaction Status Date / Time No Known Allergies Allergy Verified 05/01/15 08:52 Home Medications Medication Instructions Recorded Confirmed Last Taken Type Aspirin [Aspirin BABY CHEW TAB] 81 mg PO QDAY 05/01/15 10/03/15 10/02/15 History Baking Soda 0.25 tsp PO DAILY 05/01/15 05/01/15 10/02/15 History Carvedilol 6.25 mg PO BID 05/01/15 10/03/15 10/03/15 05:00 History Doxazosin [Cardura] 4 mg PO BID 05/01/15 10/03/15 10/03/15 05:00 History Fenofibrate 160 mg PO DAILY 05/01/15 10/03/15 10/02/15 History Ferrous Sulfate [Feosol] 325 mg PO BID 05/01/15 10/03/15 10/02/15 History Insulin Glargine,Hum.rec.anlog 30 units SUB-Q HS 05/01/15 10/03/15 10/02/15 History [Lantus Solostar] Losartan [Cozaar] 100 mg PO QDAY 05/01/15 10/03/15 10/03/15 05:00 History Multivit-Min/Iron Fum/Folic AC 1 each PO DAILY 05/01/15 10/03/15 10/02/15 History [Ofrtw-Nxlrytc-Qhmoqskd Tablet] [place]-3 Fatty Acids/Fish Oil [Fish 1 each PO DAILY 05/01/15 10/03/15 10/02/15 History Oil] Simvastatin 40 mg PO DAILY 05/01/15 10/03/15 10/02/15 History allopurinoL [Zyloprim] 100 mg PO QDAY 05/01/15 10/03/15 10/02/15 History HYDROcodone/APAP 5-325 [[place] 1 - 2 each PO Q4HR PRN #30 tablet 05/03/15 10/03/15 Unknown Rx 5/325] Azithromycin [Zithromax Z-AJITH] 250 mg PO DAILY #5 tablet 01/14/17 Unknown Rx Active Meds: Active Medications Acetaminophen (Tylenol) 650 mg PO Q4H PRN PRN Reason: Pain MILD(1-3)/Fever >100.5/ANDRADE Acetaminophen/Hydrocodone Bitart ([place] 5/325) 1 each PO Q8HR PRN PRN Reason: PAIN Albuterol (Proventil) 2.5 mg IH Q4HRT PRN PRN Reason: Shortness Of Breath Allopurinol (Zyloprim) 100 mg PO QDAY [facility] Aspirin (Baby Aspirin) 81 mg PO QDAY [facility] Carvedilol (Coreg) 6.25 mg PO BID [facility] Last Admin: 07/05/19 01:46 Dose: 6.25 mg Documented by: Doxazosin Mesylate (Cardura) 4 mg PO BID [facility] Last Admin: 07/05/19 01:45 Dose: 4 mg Documented by: Fenofibrate (Tricor) 145 mg PO DAILY [facility] Ferrous Sulfate (Feosol) 325 mg PO BID [facility] Last Admin: 07/05/19 01:45 Dose: 325 mg Documented by: Fish Oil (Fish Oil) 1,000 mg PO DAILY [facility] Hydralazine HCl (Apresoline) 10 mg IV Q4HR PRN PRN Reason: Hypertension Losartan Potassium (Cozaar) 100 mg PO QDAY [facility] Multivitamins/Minerals (Theragran-M Tab) 1 each PO QDAY [facility] Ondansetron HCl (Zofran) 4 mg IV Q8H PRN PRN Reason: Nausea And Vomiting Pravastatin Sodium (Pravachol) 80 mg PO QHS [facility] Last Admin: 07/05/19 01:45 Dose: 80 mg Documented by: Sodium Chloride (Sodium Chloride Flush Syringe 10 Ml) 10 ml IV BID [facility] Last Admin: 07/05/19 01:47 Dose: 10 ml Documented by: Sodium Chloride (Sodium Chloride Flush Syringe 10 Ml) 10 ml IV PRN PRN PRN Reason: LINE FLUSH Review of Systems ROS unobtainable: due to mental status Exam - Vital Signs Vital signs: Vital Signs Pulse Resp 79 15 07/04/19 16:42 07/04/19 16:42 - Physical Exam Narrative exam: Constitutional: no acute distress Head: NC/AT Neck: supple Lungs: clear to auscultation CV: RRR, no M/R/G Abdomen: soft, non-tender, bowel sounds present Back: nontender Extremities: no edema, pulses WNL Skin: intact Neuro: alert but only oriented to self; confused; moves extremities spontaneousl y Results - Lab Results 07/04/19 17:08 07/05/19 05:29 Most recent lab results Calcium 8.7 mg/dL (8.4-10.2) 07/05/19 05:29 Assessment and Plan This is a 79 year old man who presents with altered mental status. # ESRD: - no indication for HD today; will continue HD MWF, due tomorrow - daily labs - renally dose meds - avoid nephrotoxins - renal diet # Anemia: last hemoglobin 10.9, at goal. No indication for ESAs # HTN: UF as tolerated. BP reasonable. # Secondary Hyperparathyroidism: continue home binders as needed # Altered Mentation: less likely uremia related. Less likely dialysis dis equilibrium as he is a chronic ESRD patient on HD; CT head reviewed
[2019-07-05] MEDS ORDERED: IRON FUM PO SCH (10:00)
[2019-07-05] MEDS ORDERED: FENOFIBRATE 160 MG PO SCH (10:00)
[2019-07-05] MEDS ORDERED: MULTIVIT MIN PO SCH (10:00)
[2019-07-05] MEDS ORDERED: NON-FORMULARY EACH (Simvastatin [Simvastatin] 40 MG) PO SCH (10:00)
[2019-07-05] MEDS ORDERED: NON-FORMULARY EACH (Losartan [Cozaar] 100 MG) PO SCH (10:00)
[2019-07-05] MEDS ORDERED: FOLIC AC PO SCH (10:00)
[2019-07-05] MEDS ORDERED: [UNRECOGNIZED DRUG - OTHER] PO SCH (10:00)
[2019-07-05 10:39] LABS: Hepatitis B Surface Antigen Non-Reactive (Negative); Hepatitis C Virus Antibody Non-Reactive (NonReactive)
[2019-07-05] MEDS: OMEGA-3 FATTY ACIDS/FISH OIL 1 GRAM CAP PO SCH (10:47)
[2019-07-05] MEDS: MULTIVITAMINS,THER W-MINERALS TAB PO SCH (10:47)
[2019-07-05] MEDS: allopurinoL 100 MG TAB PO SCH (10:47)
[2019-07-05] MEDS: LOSARTAN 50 MG TAB PO SCH (10:47)
[2019-07-05] MEDS: ASPIRIN 81 MG TAB CHEW PO SCH (10:47)
[2019-07-05] MEDS: FENOFIBRATE 145 MG TAB PO SCH (10:48)
[2019-07-05] MEDS ORDERED: SODIUM CHLORIDE 0.9% 100 ML IV PRN (16:41)
[2019-07-06] MEDS: ASPIRIN 81 MG TAB CHEW PO SCH (10:23)
[2019-07-06] MEDS: DOXAZOSIN 4 MG TAB PO SCH ×2 (10:23→22:00)
[2019-07-06] MEDS: carvediloL 6.25 MG TAB PO SCH ×2 (10:24→22:00)
[2019-07-06] MEDS: LOSARTAN 50 MG TAB PO SCH (10:24)
[2019-07-06] MEDS: FERROUS SULFATE 325 MG TAB PO SCH ×2 (10:25→22:00)
[2019-07-06] MEDS: OMEGA-3 FATTY ACIDS/FISH OIL 1 GRAM CAP PO SCH (10:25)
[2019-07-06] MEDS: MULTIVITAMINS,THER W-MINERALS TAB PO SCH (10:30)
[2019-07-06] MEDS: FENOFIBRATE 145 MG TAB PO SCH (10:30)
[2019-07-06] MEDS: allopurinoL 100 MG TAB PO SCH (10:30)
--- NOTE | 2019-07-06 10:58 | Progress Note ---
Assessment and Plan Assessment and plan: --metabolic encephalopathy;Multifactorial --End-stage renal disease on hemodialysis; HD per schedule, nephrology consulted --Nonspecific elevation of cardiac enzymes;NSTMI 2 Patient has no cardiac symptoms like chest pain or shortness of breath Closely monitor --Type 2 diabetes mellitus; Accu-Chek sliding scale coverage ADA diet and insulin as needed --Hypertensive urgency; Resume home antihypertensives and PRN medications --Acute psychosis/hallucinations; Consult psych if no improvement --DVT prophylaxis; Heparin renal dose --Full CODE STATUS; Monitor closely and adjust management as needed Plan of care reviewed with the patient's nurse and The significant other at the bedside 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 Case management/social media assistant processing plac ement Disposition; continue inpatient management DC/SNF placement when processed. History Interval history: Patient seen and examined at bedside Medical records reviewed Patient received hemodialysis today Feels better, wants to go home Vital signs reviewed Patient is awaiting placement Hospitalist Physical - Constitutional Vitals: Temp Pulse Resp BP Pulse Ox 97.6 F 56 L 20 120/57 95 07/06/19 10:00 07/06/19 10:45 07/06/19 10:00 07/06/19 10:45 07/06/19 07:41 General appearance: Present: mild distress, well-nourished, other (Confused at times) - EENT Eyes: Present: PERRL, EOM intact - Neck Neck: Present: supple, normal ROM - Respiratory Respiratory effort: normal Respiratory: bilateral: diminished, negative: rales, rhonchi, wheezing - Cardiovascular Rhythm: regular Heart Sounds: Present: S1 & S2 - Extremities Extremities: no ischemia, No edema - Abdominal General gastrointestinal: soft, non-tender, non-distended, normal bowel sounds - Integumentary Integumentary: Present: clear, warm - Psychiatric Psychiatric: appropriate mood/affect, cooperative - Neurologic Neurologic: CNII-XII intact, moves all extremities Results - Labs CBC & Chem 7: 07/04/19 17:08 07/05/19 05:29 Labs: Laboratory Last Values WBC 6.2 K/mm3 (4.5-11.0) 07/04/19 17:08 RBC 3.30 M/mm3 (3.65-5.03) L 07/04/19 17:08 Hgb 10.9 gm/dl (11.8-15.2) L 07/04/19 17:08 Hct 32.3 % (35.5-45.6) L 07/04/19 17:08 MCV 98 fl (84-94) H 07/04/19 17:08 MCH 33 pg (28-32) H 07/04/19 17:08 MCHC 34 % (32-34) 07/04/19 17:08 RDW 16.8 % (13.2-15.2) H 07/04/19 17:08 Plt Count 208 K/mm3 (140-440) 07/04/19 17:08 Lymph % (Auto) 14.1 % (13.4-35.0) 07/04/19 17:08 Lewis % (Auto) 8.2 % (0.0-7.3) H 07/04/19 17:08 Eos % (Auto) 2.4 % (0.0-4.3) 07/04/19 17:08 Baso % (Auto) 1.1 % (0.0-1.8) 07/04/19 17:08 Lymph # 0.9 K/mm3 (1.2-5.4) L 07/04/19 17:08 Lewis # 0.5 K/mm3 (0.0-0.8) 07/04/19 17:08 Eos # 0.2 K/mm3 (0.0-0.4) 07/04/19 17:08 Baso # 0.1 K/mm3 (0.0-0.1) 07/04/19 17:08 Seg Neutrophils % 74.2 % (40.0-70.0) H 07/04/19 17:08 Seg Neutrophils # 4.6 K/mm3 (1.8-7.7) 07/04/19 17:08 PT 12.9 Sec. (12.2-14.9) 07/04/19 17:08 INR 0.96 (0.87-1.13) 07/04/19 17:08 APTT 35.8 Sec. (24.2-36.6) 07/04/19 17:08 Sodium 142 mmol/L (137-145) 07/05/19 05:29 Potassium 4.0 mmol/L (3.6-5.0) 07/05/19 05:29 Chloride 102.8 mmol/L (98-107) 07/05/19 05:29 Carbon Dioxide 24 mmol/L (22-30) 07/05/19 05:29 Anion Gap 19 mmol/L 07/05/19 05:29 BUN 34 mg/dL (9-20) H 07/05/19 05:29 Creatinine 5.6 mg/dL (0.8-1.5) H 07/05/19 05:29 Estimated GFR 10 ml/min 07/05/19 05:29 BUN/Creatinine Ratio 6 % 07/05/19 05:29 Glucose 82 mg/dL (75-100) 07/05/19 05:29 POC Glucose 63 (70-105) L 07/05/19 02:41 Calcium 8.7 mg/dL (8.4-10.2) 07/05/19 05:29 Total Bilirubin 0.80 mg/dL (0.1-1.2) 07/04/19 17:08 AST 117 units/L (5-40) H 07/04/19 17:08 ALT 64 units/L (7-56) H 07/04/19 17:08 Alkaline Phosphatase 46 units/L (35-129) 07/04/19 17:08 Ammonia 44.0 umol/L (25-60) 07/04/19 18:24 Total Creatine Kinase 1846 units/L (55-170) H 07/05/19 08:44 CK-MB (CK-2) 12.7 ng/mL (0.0-4.0) H 07/05/19 08:44 CK-MB (CK-2) Rel Index 0.6 (0-4) 07/05/19 08:44 Troponin T 0.195 ng/mL (0.00-0.029) H* 07/05/19 08:44 Total Protein 6.5 g/dL (6.3-8.2) 07/04/19 17:08 Albumin 3.7 g/dL (3.9-5) L 07/04/19 17:08 Albumin/Globulin Ratio 1.3 % 07/04/19 17:08 Triglycerides 132 mg/dL (2-149) 07/04/19 17:08 Cholesterol 102 mg/dL (50-199) 07/04/19 17:08 LDL Cholesterol Direct 45 mg/dL (50-130) L 07/04/19 17:08 HDL Cholesterol 32 mg/dL (40-59) L 07/04/19 17:08 Cholesterol/HDL Ratio 3.18 % 07/04/19 17:08 TSH 1.850 mlU/mL (0.270-4.200) 07/04/19 20:06 Free T4 1.19 ng/dL (0.76-1.46) 07/04/19 20:06 Urine Color Yellow (Yellow) 07/04/19 18:03 Urine Turbidity Clear (Clear) 07/04/19 18:03 Urine pH 7.0 (5.0-7.0) 07/04/19 18:03 Ur Specific [place] 1.016 (1.003-1.030) 07/04/19 18:03 Urine Protein >500 mg/dL (Negative) 07/04/19 18:03 Urine Glucose (UA) 150 mg/dL (Negative) 07/04/19 18:03 Urine Ketones Neg mg/dL (Negative) 07/04/19 18:03 Urine Blood Sm (Negative) 07/04/19 18:03 Urine Nitrite Neg (Negative) 07/04/19 18:03 Urine Bilirubin Neg (Negative) 07/04/19 18:03 Urine Urobilinogen < 2.0 mg/dL (<2.0) 07/04/19 18:03 Ur Leukocyte Esterase Neg (Negative) 07/04/19 18:03 Urine WBC (Auto) 1.0 /HPF (0.0-6.0) 07/04/19 18:03 Urine RBC (Auto) < 1.0 /HPF (0.0-6.0) 07/04/19 18:03 Hyaline Casts 3 /LPF 07/04/19 18:03 Urine Opiates Screen Presumptive positive 07/04/19 18:03 Urine Methadone Screen Presumptive negative 07/04/19 18:03 Ur Barbiturates Screen Presumptive negative 07/04/19 18:03 Ur Phencyclidine Scrn Presumptive negative 07/04/19 18:03 Ur Amphetamines Screen Presumptive negative 07/04/19 18:03 U Benzodiazepines Scrn Presumptive negative 07/04/19 18:03 Urine Cocaine Screen Presumptive negative 07/04/19 18:03 U Marijuana (THC) Screen Presumptive negative 07/04/19 18:03 Drugs of Abuse Note Disclamer 07/04/19 18:03 Plasma/Serum Alcohol < 0.01 % (0-0.07) 07/04/19 17:55 Hepatitis A IgM Ab Non-reactive (NonReactive) 07/05/19 08:44 Hep Bs Antigen Non-reactive (Negative) 07/05/19 08:44 Hep B Core IgM Ab Non-reactive (NonReactive) 07/05/19 08:44 Hepatitis C Antibody Non-reactive (NonReactive) 07/05/19 08:44 Active Medications - Current Medications Current Medications: Generic Name Dose Route Start Last Admin Trade Name Freq PRN Reason Stop Dose Admin Acetaminophen 650 mg 07/04/19 19:55 Tylenol PO Q4H PRN Pain MILD(1-3)/Fever >100.5/ANDRADE Acetaminophen/Hydrocodone Bitart 1 each 07/04/19 19:56 [place] 5/325 PO Q8HR PRN PAIN Albuterol 2.5 mg 07/04/19 19:55 Proventil IH Q4HRT PRN Shortness Of Breath Allopurinol 100 mg 07/05/19 10:00 07/06/19 10:30 Zyloprim PO Not Given QDAY [facility] Aspirin 81 mg 07/05/19 10:00 07/06/19 10:23 Baby Aspirin PO Not Given QDAY [facility] Carvedilol 6.25 mg 07/04/19 22:00 07/06/19 10:24 Coreg PO Not Given BID [facility] Doxazosin Mesylate 4 mg 07/04/19 22:00 07/06/19 10:23 Cardura PO Not Given BID [facility] Fenofibrate 145 mg 07/05/19 10:00 07/06/19 10:30 Tricor PO Not Given DAILY [facility] Ferrous Sulfate 325 mg 07/04/19 22:00 07/06/19 10:25 Feosol PO Not Given BID [facility] Fish Oil 1,000 mg 07/05/19 10:00 07/06/19 10:25 Fish Oil PO Not Given DAILY [facility] Hydralazine HCl 10 mg 07/05/19 08:25 Apresoline IV Q4HR PRN Hypertension Sodium Chloride 100 mls @ 999 mls/hr 07/05/19 16:41 Nacl 0.9% IV PETTY PRN Hypotension Losartan Potassium 100 mg 07/05/19 10:00 07/06/19 10:24 Cozaar PO Not Given QDAY [facility] Multivitamins/Minerals 1 each 07/05/19 10:00 07/06/19 10:30 Theragran-M Tab PO Not Given QDAY [facility] Ondansetron HCl 4 mg 07/04/19 19:55 Zofran IV Q8H PRN Nausea And Vomiting Pravastatin Sodium 80 mg 07/04/19 22:00 07/05/19 22:04 Pravachol PO 80 mg QHS [facility] Administration Sodium Chloride 10 ml 07/04/19 22:00 07/06/19 10:25 Sodium Chloride Flush Syringe 10 Ml IV Not Given BID [facility] Sodium Chloride 10 ml 07/04/19 19:55 Sodium Chloride Flush Syringe 10 Ml IV PRN PRN LINE FLUSH Nutrition/Malnutrition Assess - Dietary Evaluation Nutrition/Malnutrition Findings: Nutrition Notes Start: 07/05/19 12:50 Freq: Status: Active Protocol: Document 07/05/19 12:50 CW (Rec: 07/05/19 13:13 CW [id number]) Co-Sign 07/05/19 12:50 LP Nutrition Notes 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 Calvin score of 16. Pt reports having an appetite [employer] as well as currently. As per previous nursing notes, Pt. did not have an diet order place until 0200 and was requesting meals. Unable to obtain accurate UBW D/T AMS. 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 No Is Patient Ambulatory and/or Out of Bed No REE-([facility]-confined to bed) 2020.400 Calculation Used for Recommendations Molly Mello Additional Notes protein needs: 92 - 110 g (1 - 1.2 g/kg BW) fluid needs: 1 ml/kcal Nutrition Intervention Change Diet Order: continue renal diet Goal #1 Meet at least 75% of protein and kcal needs via PO Anticipated Discharge Needs: Renal Diet Follow-Up By: 07/07/19 Additional Comments F/U for PO/ONS intake
--- NOTE | 2019-07-06 11:20 | Progress Note ---
Assessment and Plan This is a 79 year old man who presents with altered mental status. # ESRD: - seen on HD today, tolerating well; will continue HD MWF or prn based on labs/volume - daily labs - renally dose meds - avoid nephrotoxins - renal diet # Anemia: last hemoglobin 10.9, at goal. No indication for ESAs # HTN: UF as tolerated. BP reasonable. # Secondary Hyperparathyroidism: continue home binders as needed # Altered Mentation: less likely uremia related. Less likely dialysis disequilibrium as he is a chronic ESRD patient on HD; CT head reviewed. Seems to have improved. Subjective Date of service: 07/06/19 Interval history: No acute events noted. Much more alert and oriented today. States that he was simply sleepy yesterday. Seen on HD, denies any cramping, dizziness, lightheadedness, chest pain. No dyspnea or edema noted Objective - Exam Narrative Exam: Constitutional: no acute distress Head: NC/AT Neck: supple Lungs: clear to auscultation CV: RRR, no M/R/G Abdomen: soft, non-tender, bowel sounds present Back: nontender Extremities: no edema, pulses WNL Skin: intact Neuro: alert and oriented; moves extremities spontaneously - Vital Signs Vital signs: Vital Signs - 12hr 07/06/19 07/06/19 07/06/19 02:06 02:27 07:41 Temperature 98.4 F 97.7 F Pulse Rate 86 57 L Respiratory 20 20 Rate Blood Pressure 154/57 150/40 O2 Sat by Pulse 93 95 Oximetry 07/06/19 07/06/19 07/06/19 10:00 10:15 10:30 Temperature 97.6 F Pulse Rate 58 L 55 L 55 L Respiratory 20 Rate Blood Pressure 117/47 122/62 123/50 O2 Sat by Pulse Oximetry 07/06/19 10:45 Temperature Pulse Rate 56 L Respiratory Rate Blood Pressure 120/57 O2 Sat by Pulse Oximetry Seen on HD. Qb 400 via AVF. UF goal 2.5L - Lab 07/04/19 17:08 07/05/19 05:29 Most recent lab results Calcium 8.7 mg/dL (8.4-10.2) 07/05/19 05:29 Medications & Allergies - Medications Allergies/Adverse Reactions: Allergies No Known Allergies Allergy (Verified 05/01/15 08:52) Home Medications: Home Medications Medication Instructions Recorded Confirmed Last Taken Type Aspirin [Aspirin BABY CHEW TAB] 81 mg PO QDAY 05/01/15 07/05/19 10/02/15 History Baking Soda 0.25 tsp PO DAILY 05/01/15 07/05/19 10/02/15 History Carvedilol 6.25 mg PO BID 05/01/15 07/05/19 10/03/15 05:00 History Doxazosin [Cardura] 4 mg PO BID 05/01/15 07/05/19 10/03/15 05:00 History Fenofibrate 160 mg PO DAILY 05/01/15 07/05/19 10/02/15 History Ferrous Sulfate [Feosol] 325 mg PO BID 05/01/15 07/05/19 10/02/15 History Losartan [Cozaar] 100 mg PO QDAY 05/01/15 07/05/19 10/03/15 05:00 History Multivit-Min/Iron Fum/Folic AC 1 each PO DAILY 05/01/15 07/05/19 10/02/15 History [Ynyos-[id number]-Muoyfefq Tablet] [place]-3 Fatty Acids/Fish Oil [Fish 1 each PO DAILY 05/01/15 07/05/19 10/02/15 History Oil] Simvastatin 40 mg PO DAILY 05/01/15 07/05/19 10/02/15 History allopurinoL [Zyloprim] 100 mg PO QDAY 05/01/15 07/05/19 10/02/15 History Active Medications: Generic Name Dose Route Start Last Admin Trade Name Freq PRN Reason Stop Dose Admin Acetaminophen 650 mg 07/04/19 19:55 Tylenol PO Q4H PRN Pain MILD(1-3)/Fever >100.5/ANDRADE Acetaminophen/Hydrocodone Bitart 1 each 07/04/19 19:56 [place] 5/325 PO Q8HR PRN PAIN Albuterol 2.5 mg 07/04/19 19:55 Proventil IH Q4HRT PRN Shortness Of Breath Allopurinol 100 mg 07/05/19 10:00 07/06/19 10:30 Zyloprim PO Not Given QDAY [facility] Aspirin 81 mg 07/05/19 10:00 07/06/19 10:23 Baby Aspirin PO Not Given QDAY [facility] Carvedilol 6.25 mg 07/04/19 22:00 07/06/19 10:24 Coreg PO Not Given BID [facility] Doxazosin Mesylate 4 mg 07/04/19 22:00 07/06/19 10:23 Cardura PO Not Given BID [facility] Fenofibrate 145 mg 07/05/19 10:00 07/06/19 10:30 Tricor PO Not Given DAILY [facility] Ferrous Sulfate 325 mg 07/04/19 22:00 07/06/19 10:25 Feosol PO Not Given BID [facility] Fish Oil 1,000 mg 07/05/19 10:00 07/06/19 10:25 Fish Oil PO Not Given DAILY [facility] Hydralazine HCl 10 mg 07/05/19 08:25 Apresoline IV Q4HR PRN Hypertension Sodium Chloride 100 mls @ 999 mls/hr 07/05/19 16:41 Nacl 0.9% IV PETTY PRN Hypotension Losartan Potassium 100 mg 07/05/19 10:00 07/06/19 10:24 Cozaar PO Not Given QDAY [facility] Multivitamins/Minerals 1 each 07/05/19 10:00 07/06/19 10:30 Theragran-M Tab PO Not Given QDAY [facility] Ondansetron HCl 4 mg 07/04/19 19:55 Zofran IV Q8H PRN Nausea And Vomiting Pravastatin Sodium 80 mg 07/04/19 22:00 07/05/19 22:04 Pravachol PO 80 mg QHS [facility] Administration Sodium Chloride 10 ml 07/04/19 22:00 07/06/19 10:25 Sodium Chloride Flush Syringe 10 Ml IV Not Given BID [facility] Sodium Chloride 10 ml 07/04/19 19:55 Sodium Chloride Flush Syringe 10 Ml IV PRN PRN LINE FLUSH
[2019-07-06] MEDS ORDERED: SODIUM CHLORIDE*PRIMING MACHINE ONLY FOR DIALYSIS MC ONE (11:55)
[2019-07-06] MEDS: PRAVASTATIN 80 MG TAB PO SCH (22:00)
--- NOTE | 2019-07-07 10:03 | Progress Note ---
Assessment and Plan This is a 79 year old man who presents with altered mental status. # ESRD: - tolerating HD well; will continue HD MWF or prn based on labs/volume, no indication for HD today - daily labs - renally dose meds - avoid nephrotoxins - renal diet # Anemia: last hemoglobin 10.9, at goal. No indication for ESAs # HTN: UF as tolerated with HD. BP reasonable. # Secondary Hyperparathyroidism: continue home binders as needed # Altered Mentation: less likely uremia related. Less likely dialysis disequilibrium as he is a chronic ESRD patient on HD; CT head reviewed. Seems to have improved. Suspect gabapentin as likely contributing factor, would continue to hold Subjective Date of service: 07/07/19 Interval history: No acute events noted. at bedside. Tolerated HD well yesterday. No cramping, dizziness, lightheadedness, chest pain. No dyspnea or edema noted Objective - Exam Narrative Exam: Constitutional: no acute distress Head: NC/AT Neck: supple Lungs: clear to auscultation CV: RRR, no M/R/G Abdomen: soft, non-tender, bowel sounds present Back: nontender Extremities: no edema, pulses WNL Skin: intact Neuro: alert and oriented; moves extremities spontaneously - Vital Signs Vital signs: Vital Signs - 12hr 07/07/19 07/07/19 07/07/19 02:40 08:09 09:19 Temperature 97.5 F L 97.3 F L Pulse Rate 63 Respiratory 20 18 Rate Blood Pressure 164/64 139/49 O2 Sat by Pulse 100 95 96 Oximetry - Lab 07/04/19 17:08 07/05/19 05:29 Most recent lab results Calcium 8.7 mg/dL (8.4-10.2) 07/05/19 05:29 Medications & Allergies - Medications Allergies/Adverse Reactions: Allergies No Known Allergies Allergy (Verified 05/01/15 08:52) Home Medications: Home Medications Medication Instructions Recorded Confirmed Last Taken Type Aspirin [Aspirin BABY CHEW TAB] 81 mg PO QDAY 05/01/15 07/05/19 10/02/15 History Baking Soda 0.25 tsp PO DAILY 05/01/15 07/05/19 10/02/15 History Carvedilol 6.25 mg PO BID 05/01/15 07/05/19 10/03/15 05:00 History Doxazosin [Cardura] 4 mg PO BID 05/01/15 07/05/19 10/03/15 05:00 History Fenofibrate 160 mg PO DAILY 05/01/15 07/05/19 10/02/15 History Ferrous Sulfate [Feosol] 325 mg PO BID 05/01/15 07/05/19 10/02/15 History Losartan [Cozaar] 100 mg PO QDAY 05/01/15 07/05/19 10/03/15 05:00 History Multivit-Min/Iron Fum/Folic AC 1 each PO DAILY 05/01/15 07/05/19 10/02/15 History [Ddxmf-Hdhhsjb-Zduegaap Tablet] [place]-3 Fatty Acids/Fish Oil [Fish 1 each PO DAILY 05/01/15 07/05/19 10/02/15 History Oil] Simvastatin 40 mg PO DAILY 05/01/15 07/05/19 10/02/15 History allopurinoL [Zyloprim] 100 mg PO QDAY 05/01/15 07/05/19 10/02/15 History Active Medications: Generic Name Dose Route Start Last Admin Trade Name Freq PRN Reason Stop Dose Admin Acetaminophen 650 mg 07/04/19 19:55 07/06/19 18:05 Tylenol PO 650 mg Q4H PRN Administration Pain MILD(1-3)/Fever >100.5/ANDRADE Acetaminophen/Hydrocodone Bitart 1 each 07/04/19 19:56 [place] 5/325 PO Q8HR PRN PAIN Albuterol 2.5 mg 07/04/19 19:55 Proventil IH Q4HRT PRN Shortness Of Breath Allopurinol 100 mg 07/05/19 10:00 07/06/19 10:30 Zyloprim PO Not Given QDAY [facility] Aspirin 81 mg 07/05/19 10:00 07/06/19 10:23 Baby Aspirin PO Not Given QDAY [facility] Carvedilol 6.25 mg 07/04/19 22:00 07/06/19 22:00 Coreg PO 6.25 mg BID [facility] Administration Doxazosin Mesylate 4 mg 07/04/19 22:00 07/06/19 22:00 Cardura PO 4 mg BID [facility] Administration Fenofibrate 145 mg 07/05/19 10:00 07/06/19 10:30 Tricor PO Not Given DAILY [facility] Ferrous Sulfate 325 mg 07/04/19 22:00 07/06/19 22:00 Feosol PO 325 mg BID [facility] Administration Fish Oil 1,000 mg 07/05/19 10:00 07/06/19 10:25 Fish Oil PO Not Given DAILY [facility] Hydralazine HCl 10 mg 07/05/19 08:25 Apresoline IV Q4HR PRN Hypertension Sodium Chloride 100 mls @ 999 mls/hr 07/05/19 16:41 Nacl 0.9% IV PETTY PRN Hypotension Losartan Potassium 100 mg 07/05/19 10:00 07/06/19 10:24 Cozaar PO Not Given QDAY [facility] Multivitamins/Minerals 1 each 07/05/19 10:00 07/06/19 10:30 Theragran-M Tab PO Not Given QDAY [facility] Ondansetron HCl 4 mg 07/04/19 19:55 Zofran IV Q8H PRN Nausea And Vomiting Pravastatin Sodium 80 mg 07/04/19 22:00 07/06/19 22:00 Pravachol PO 80 mg QHS [facility] Administration Sodium Chloride 10 ml 07/04/19 22:00 07/06/19 22:00 Sodium Chloride Flush Syringe 10 Ml IV 10 ml BID [facility] Administration Sodium Chloride 10 ml 07/04/19 19:55 Sodium Chloride Flush Syringe 10 Ml IV PRN PRN LINE FLUSH
[2019-07-07] MEDS: carvediloL 6.25 MG TAB PO SCH ×2 (10:48→23:20)
[2019-07-07] MEDS: DOXAZOSIN 4 MG TAB PO SCH ×2 (10:48→23:18)
[2019-07-07] MEDS: ASPIRIN 81 MG TAB CHEW PO SCH (10:48)
[2019-07-07] MEDS: LOSARTAN 50 MG TAB PO SCH (10:48)
[2019-07-07] MEDS: OMEGA-3 FATTY ACIDS/FISH OIL 1 GRAM CAP PO SCH (10:49)
[2019-07-07] MEDS: FERROUS SULFATE 325 MG TAB PO SCH ×2 (10:49→23:18)
[2019-07-07] MEDS: FENOFIBRATE 145 MG TAB PO SCH (10:50)
[2019-07-07] MEDS: MULTIVITAMINS,THER W-MINERALS TAB PO SCH (10:50)
[2019-07-07] MEDS: allopurinoL 100 MG TAB PO SCH (10:50)
[2019-07-07] MEDS: HYDROcodone/ACETAMINOPHEN 5-325 MG TAB PO PRN (17:05)
--- NOTE | 2019-07-07 18:46 | Progress Note ---
Assessment and Plan Assessment and plan: Patient is medically stable for discharge Awaiting SNF placement --metabolic encephalopathy;Multifactorial --End-stage renal disease on hemodialysis; HD per schedule, nephrology consulted --Nonspecific elevation of cardiac enzymes;NSTMI 2 Patient has no cardiac symptoms like chest pain or shortness of breath Closely monitor --Type 2 diabetes mellitus; Accu-Chek sliding scale coverage ADA diet and insulin as needed --Hypertensive urgency; Resume home antihypertensives and PRN medications --Acute psychosis/hallucinations; Consult psych if no improvement --DVT prophylaxis; Heparin renal dose --Full CODE STATUS; Monitor closely and adjust management as needed Plan of care reviewed with the patient's nurse and The significant other at the bedside Talent Manager recommendations noted and 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 Case management/social media assistant processing placement Disposition; continue inpatient management DC/SNF placement when processed. History Interval history: Patient seen and examined medical records reviewed Patient feels better anxious to go home Hemodialysis per schedule Patient denies any chest pain or shortness of breath Patient is awaiting SNF placement Vital signs reviewed Hospitalist Physical - Constitutional Vitals: Temp Pulse Resp BP Pulse Ox 97.3 F L 63 18 139/49 96 07/07/19 08:09 07/07/19 08:09 07/07/19 08:09 07/07/19 08:09 07/07/19 09:19 General appearance: Present: mild distress, well-nourished, other (Confused at times) - EENT Eyes: Present: PERRL, EOM intact - Neck Neck: Present: supple, normal ROM - Respiratory Respiratory effort: normal Respiratory: bilateral: diminished, negative: rales, rhonchi, wheezing - Cardiovascular Rhythm: regular Heart Sounds: Present: S1 & S2 - Extremities Extremities: no ischemia Extremity abnormal: edema - Abdominal General gastrointestinal: soft, non-tender, non-distended, normal bowel sounds - Integumentary Integumentary: Present: clear, warm - Psychiatric Psychiatric: appropriate mood/affect, cooperative - Neurologic Neurologic: moves all extremities Results - Labs CBC & Chem 7: 07/04/19 17:08 07/05/19 05:29 Labs: Laboratory Last Values WBC 6.2 K/mm3 (4.5-11.0) 07/04/19 17:08 RBC 3.30 M/mm3 (3.65-5.03) L 07/04/19 17:08 Hgb 10.9 gm/dl (11.8-15.2) L 07/04/19 17:08 Hct 32.3 % (35.5-45.6) L 07/04/19 17:08 MCV 98 fl (84-94) H 07/04/19 17:08 MCH 33 pg (28-32) H 07/04/19 17:08 MCHC 34 % (32-34) 07/04/19 17:08 RDW 16.8 % (13.2-15.2) H 07/04/19 17:08 Plt Count 208 K/mm3 (140-440) 07/04/19 17:08 Lymph % (Auto) 14.1 % (13.4-35.0) 07/04/19 17:08 [place] % (Auto) 8.2 % (0.0-7.3) H 07/04/19 17:08 Eos % (Auto) 2.4 % (0.0-4.3) 07/04/19 17:08 Baso % (Auto) 1.1 % (0.0-1.8) 07/04/19 17:08 Lymph # 0.9 K/mm3 (1.2-5.4) L 07/04/19 17:08 [place] # 0.5 K/mm3 (0.0-0.8) 07/04/19 17:08 Eos # 0.2 K/mm3 (0.0-0.4) 07/04/19 17:08 Baso # 0.1 K/mm3 (0.0-0.1) 07/04/19 17:08 Seg Neutrophils % 74.2 % (40.0-70.0) H 07/04/19 17:08 Seg Neutrophils # 4.6 K/mm3 (1.8-7.7) 07/04/19 17:08 PT 12.9 Sec. (12.2-14.9) 07/04/19 17:08 INR 0.96 (0.87-1.13) 07/04/19 17:08 APTT 35.8 Sec. (24.2-36.6) 07/04/19 17:08 Sodium 142 mmol/L (137-145) 07/05/19 05:29 Potassium 4.0 mmol/L (3.6-5.0) 07/05/19 05:29 Chloride 102.8 mmol/L (98-107) 07/05/19 05:29 Carbon Dioxide 24 mmol/L (22-30) 07/05/19 05:29 Anion Gap 19 mmol/L 07/05/19 05:29 BUN 34 mg/dL (9-20) H 07/05/19 05:29 Creatinine 5.6 mg/dL (0.8-1.5) H 07/05/19 05:29 Estimated GFR 10 ml/min 07/05/19 05:29 BUN/Creatinine Ratio 6 % 07/05/19 05:29 Glucose 82 mg/dL (75-100) 07/05/19 05:29 POC Glucose 63 (70-105) L 07/05/19 02:41 Calcium 8.7 mg/dL (8.4-10.2) 07/05/19 05:29 Total Bilirubin 0.80 mg/dL (0.1-1.2) 07/04/19 17:08 AST 117 units/L (5-40) H 07/04/19 17:08 ALT 64 units/L (7-56) H 07/04/19 17:08 Alkaline Phosphatase 46 units/L (35-129) 07/04/19 17:08 Ammonia 44.0 umol/L (25-60) 07/04/19 18:24 Total Creatine Kinase 1846 units/L (55-170) H 07/05/19 08:44 CK-MB (CK-2) 12.7 ng/mL (0.0-4.0) H 07/05/19 08:44 CK-MB (CK-2) Rel Index 0.6 (0-4) 07/05/19 08:44 Troponin T 0.195 ng/mL (0.00-0.029) H* 07/05/19 08:44 Total Protein 6.5 g/dL (6.3-8.2) 07/04/19 17:08 Albumin 3.7 g/dL (3.9-5) L 07/04/19 17:08 Albumin/Globulin Ratio 1.3 % 07/04/19 17:08 Triglycerides 132 mg/dL (2-149) 07/04/19 17:08 Cholesterol 102 mg/dL (50-199) 07/04/19 17:08 LDL Cholesterol Direct 45 mg/dL (50-130) L 07/04/19 17:08 HDL Cholesterol 32 mg/dL (40-59) L 07/04/19 17:08 Cholesterol/HDL Ratio 3.18 % 07/04/19 17:08 TSH 1.850 mlU/mL (0.270-4.200) 07/04/19 20:06 Free T4 1.19 ng/dL (0.76-1.46) 07/04/19 20:06 Urine Color Yellow (Yellow) 07/04/19 18:03 Urine Turbidity Clear (Clear) 07/04/19 18:03 Urine pH 7.0 (5.0-7.0) 07/04/19 18:03 Ur Specific [place] 1.016 (1.003-1.030) 07/04/19 18:03 Urine Protein >500 mg/dL (Negative) 07/04/19 18:03 Urine Glucose (UA) 150 mg/dL (Negative) 07/04/19 18:03 Urine Ketones Neg mg/dL (Negative) 07/04/19 18:03 Urine Blood Sm (Negative) 07/04/19 18:03 Urine Nitrite Neg (Negative) 07/04/19 18:03 Urine Bilirubin Neg (Negative) 07/04/19 18:03 Urine Urobilinogen < 2.0 mg/dL (<2.0) 07/04/19 18:03 Ur Leukocyte Esterase Neg (Negative) 07/04/19 18:03 Urine WBC (Auto) 1.0 /HPF (0.0-6.0) 07/04/19 18:03 Urine RBC (Auto) < 1.0 /HPF (0.0-6.0) 07/04/19 18:03 Hyaline Casts 3 /LPF 07/04/19 18:03 Urine Opiates Screen Presumptive positive 07/04/19 18:03 Urine Methadone Screen Presumptive negative 07/04/19 18:03 Ur Barbiturates Screen Presumptive negative 07/04/19 18:03 Ur Phencyclidine Scrn Presumptive negative 07/04/19 18:03 Ur Amphetamines Screen Presumptive negative 07/04/19 18:03 U Benzodiazepines Scrn Presumptive negative 07/04/19 18:03 Urine Cocaine Screen Presumptive negative 07/04/19 18:03 U Marijuana (THC) Screen Presumptive negative 07/04/19 18:03 Drugs of Abuse Note Disclamer 07/04/19 18:03 Plasma/Serum Alcohol < 0.01 % (0-0.07) 07/04/19 17:55 Hepatitis A IgM Ab Non-reactive (NonReactive) 07/05/19 08:44 Hep Bs Antigen Non-reactive (Negative) 07/05/19 08:44 Hep B Core IgM Ab Non-reactive (NonReactive) 07/05/19 08:44 Hepatitis C Antibody Non-reactive (NonReactive) 07/05/19 08:44 Active Medications - Current Medications Current Medications: Generic Name Dose Route Start Last Admin Trade Name Freq PRN Reason Stop Dose Admin Acetaminophen 650 mg 07/04/19 19:55 07/06/19 18:05 Tylenol PO 650 mg Q4H PRN Administration Pain MILD(1-3)/Fever >100.5/ANDRADE Acetaminophen/Hydrocodone Bitart 1 each 07/04/19 19:56 07/07/19 17:05 [place] 5/325 PO 1 each Q8HR PRN Administration PAIN Albuterol 2.5 mg 07/04/19 19:55 Proventil IH Q4HRT PRN Shortness Of Breath Allopurinol 100 mg 07/05/19 10:00 07/07/19 10:50 Zyloprim PO 100 mg QDAY SADAF Administration Aspirin 81 mg 07/05/19 10:00 07/07/19 10:48 Baby Aspirin PO 81 mg QDAY SADAF Administration Carvedilol 6.25 mg 07/04/19 22:00 07/07/19 10:48 Coreg PO 6.25 mg BID SADAF Administration Doxazosin Mesylate 4 mg 07/04/19 22:00 07/07/19 10:48 Cardura PO 4 mg BID SADAF Administration Fenofibrate 145 mg 07/05/19 10:00 07/07/19 10:50 Tricor PO 145 mg DAILY SADAF Administration Ferrous Sulfate 325 mg 07/04/19 22:00 07/07/19 10:49 Feosol PO 325 mg BID SADAF Administration Fish Oil 1,000 mg 07/05/19 10:00 07/07/19 10:49 Fish Oil PO Not Given DAILY SADAF Hydralazine HCl 10 mg 07/05/19 08:25 Apresoline IV Q4HR PRN Hypertension Sodium Chloride 100 mls @ 999 mls/hr 07/05/19 16:41 Nacl 0.9% IV PETTY PRN Hypotension Losartan Potassium 100 mg 07/05/19 10:00 07/07/19 10:48 Cozaar PO 100 mg QDAY SADAF Administration Multivitamins/Minerals 1 each 07/05/19 10:00 07/07/19 10:50 Theragran-M Tab PO Not Given QDAY SADAF Ondansetron HCl 4 mg 07/04/19 19:55 Zofran IV Q8H PRN Nausea And Vomiting Pravastatin Sodium 80 mg 07/04/19 22:00 07/06/19 22:00 Pravachol PO 80 mg QHS SADAF Administration Sodium Chloride 10 ml 07/04/19 22:00 07/07/19 10:50 Sodium Chloride Flush Syringe 10 Ml IV 10 ml BID SADAF Administration Sodium Chloride 10 ml 07/04/19 19:55 Sodium Chloride Flush Syringe 10 Ml IV PRN PRN LINE FLUSH Nutrition/Malnutrition Assess - Dietary Evaluation Nutrition/Malnutrition Findings: Nutrition Notes Start: 07/05/19 12:50 Freq: Status: Active Protocol: Document 07/07/19 12:33 CW (Rec: 07/07/19 12:52 CW [id number]) Co-Sign 07/07/19 12:33 LP Nutrition Notes Initial or Follow up Reassessment Current Diagnosis Acute Kidney Injury,CKD (stage V CKD),Diabetes,Hypertension Other Pertinent Diagnosis HD, metabolic encephalopathy, dialysis disequilibrium syndrome, AMS, wound Current Diet Renal Diet Labs/Tests BUN: 34 Cr 5.6 BG 82 Pertinent Medications Pravastatin Height 6 ft Weight 91.626 kg [place] Body Weight (kg) 80.90 BMI 27.3 Intake Prior to Admission Excellent Weight Status Overweight Subjective/Other Information F/U for PO/ONS intake. Pt reports having an appetite and has been eating 75%-100 % of meals. Pt denies instances of N/V/D. To better meet protein needs, increase dbl protein once each meal Percent of energy/protein needs met: 100%/68% Burn Absent Trauma Absent GI Symptoms None Food Allergy No Current % PO Good (75-100%) Minimum of two criteria No Reduced Student Success Counselor Strength Measurably Reduced (severe) #2 Nutrition Diagnosis Increased nutrient needs ( specify in comment below) Comments: Protein Etiology wound healing As Evidenced by Signs and Symptoms LE wound #1 Nutrition Diagnosis Inadequate oral intake As Evidenced by Signs and Symptoms Pt meeting kcal goals via PO Diagnosis Progress(for reassessment Improved documentation) Is patient on ventilator? No Is Patient Ambulatory and/or Out of Bed No REE-([facility]-confined to bed) 2020.400 Calculation Used for Recommendations [facility] Additional Notes protein needs: 115 - 137 g (1. 25 - 1.5 g/kg BW for wound) fluid needs: 1 ml/kcal Nutrition Intervention Change Diet Order: continue renal diet, double protein at dinner Add Supplement/Snack (indicate name/kcal [place] BID /protein ) Provides kCal: 190 Provides Protein (gm) 5 Goal #1 meet at least 75% of kcal and protein needs Goal #2 Wound healing Anticipated Discharge Needs: Renal diet Follow-Up By: 07/12/19 Additional Comments F/U stable PO intakes and ONS
[2019-07-07] MEDS: PRAVASTATIN 80 MG TAB PO SCH (23:18)
[2019-07-08] MEDS ORDERED: SODIUM CHLORIDE*PRIMING MACHINE ONLY FOR DIALYSIS MC ONE (09:50)
[2019-07-08] MEDS: HYDROcodone/ACETAMINOPHEN 5-325 MG TAB PO PRN (09:55)
--- NOTE | 2019-07-08 10:24 | Progress Note ---
Assessment and Plan This is a 79 year old man who presents with altered mental status. # ESRD: - tolerating HD well; will continue HD MWF or prn based on labs/volume, seen on HD today - daily labs - renally dose meds - avoid nephrotoxins - renal diet # Anemia: last hemoglobin 10.9, at goal. No indication for ESAs # HTN: UF as tolerated with HD. BP reasonable. # Secondary Hyperparathyroidism: continue home binders as needed # Altered Mentation: less likely uremia related. Less likely dialysis disequilibrium as he is a chronic ESRD patient on HD; CT head reviewed. AMS has improved. Suspect gabapentin as likely contributing factor, would continue to hold Subjective Date of service: 07/08/19 Interval history: No acute events noted. Seen on HD, tolerating well. No cramping, dizziness, lightheadedness, chest pain. No dyspnea or edema noted Objective - Exam Narrative Exam: Constitutional: no acute distress Head: NC/AT Neck: supple Lungs: clear to auscultation CV: RRR, no M/R/G Abdomen: soft, non-tender, bowel sounds present Back: nontender Extremities: no edema, pulses WNL Skin: intact Neuro: alert and oriented; moves extremities spontaneously - Vital Signs Vital signs: Vital Signs - 12hr 07/07/19 07/07/19 07/08/19 23:18 23:20 03:03 Temperature 98.1 F Pulse Rate 67 67 63 Respiratory 20 Rate Blood Pressure 162/64 162/64 179/67 O2 Sat by Pulse 98 Oximetry 07/08/19 07/08/19 07/08/19 07:50 08:30 08:45 Temperature 97.8 F 97.8 F Pulse Rate 63 66 64 Respiratory 20 20 Rate Blood Pressure 179/77 161/69 165/68 O2 Sat by Pulse 93 Oximetry 07/08/19 07/08/19 07/08/19 09:00 09:15 09:30 Temperature Pulse Rate 64 62 61 Respiratory Rate Blood Pressure 157/76 150/63 156/58 O2 Sat by Pulse Oximetry 07/08/19 09:55 Temperature Pulse Rate Respiratory 20 Rate Blood Pressure O2 Sat by Pulse Oximetry Seen on HD. Qb 400ml/min via AVF, UF goal 2.5L - Lab 07/04/19 17:08 07/05/19 05:29 Most recent lab results Calcium 8.7 mg/dL (8.4-10.2) 07/05/19 05:29 Medications & Allergies - Medications Allergies/Adverse Reactions: Allergies No Known Allergies Allergy (Verified 05/01/15 08:52) Home Medications: Home Medications Medication Instructions Recorded Confirmed Last Taken Type Aspirin [Aspirin BABY CHEW TAB] 81 mg PO QDAY 05/01/15 07/05/19 10/02/15 History Baking Soda 0.25 tsp PO DAILY 05/01/15 07/05/19 10/02/15 History Carvedilol 6.25 mg PO BID 05/01/15 07/05/19 10/03/15 05:00 History Doxazosin [Cardura] 4 mg PO BID 05/01/15 07/05/19 10/03/15 05:00 History Fenofibrate 160 mg PO DAILY 05/01/15 07/05/19 10/02/15 History Ferrous Sulfate [Feosol] 325 mg PO BID 05/01/15 07/05/19 10/02/15 History Losartan [Cozaar] 100 mg PO QDAY 05/01/15 07/05/19 10/03/15 05:00 History Multivit-Min/Iron Fum/Folic AC 1 each PO DAILY 05/01/15 07/05/19 10/02/15 History [Raqfu-Pofduwd-Xrutmkoy Tablet] [place]-3 Fatty Acids/Fish Oil [Fish 1 each PO DAILY 05/01/15 07/05/19 10/02/15 History Oil] Simvastatin 40 mg PO DAILY 05/01/15 07/05/19 10/02/15 History allopurinoL [Zyloprim] 100 mg PO QDAY 05/01/15 07/05/19 10/02/15 History Active Medications: Generic Name Dose Route Start Last Admin Trade Name Freq PRN Reason Stop Dose Admin Acetaminophen 650 mg 07/04/19 19:55 07/06/19 18:05 Tylenol PO 650 mg Q4H PRN Administration Pain MILD(1-3)/Fever >100.5/ANDRADE Acetaminophen/Hydrocodone Bitart 1 each 07/04/19 19:56 07/08/19 09:55 [place] 5/325 PO 1 each Q8HR PRN Administration PAIN Albuterol 2.5 mg 07/04/19 19:55 Proventil IH Q4HRT PRN Shortness Of Breath Allopurinol 100 mg 07/05/19 10:00 07/07/19 10:50 Zyloprim PO 100 mg QDAY SADAF Administration Aspirin 81 mg 07/05/19 10:00 07/07/19 10:48 Baby Aspirin PO 81 mg QDAY SADAF Administration Carvedilol 6.25 mg 07/04/19 22:00 07/07/19 23:20 Coreg PO 6.25 mg BID SADAF Administration Doxazosin Mesylate 4 mg 07/04/19 22:00 07/07/19 23:18 Cardura PO 4 mg BID SADAF Administration Fenofibrate 145 mg 07/05/19 10:00 07/07/19 10:50 Tricor PO 145 mg DAILY SADAF Administration Ferrous Sulfate 325 mg 07/04/19 22:00 07/07/19 23:18 Feosol PO 325 mg BID SADAF Administration Fish Oil 1,000 mg 07/05/19 10:00 07/07/19 10:49 Fish Oil PO Not Given DAILY [facility] Hydralazine HCl 10 mg 07/05/19 08:25 Apresoline IV Q4HR PRN Hypertension Sodium Chloride 100 mls @ 999 mls/hr 07/05/19 16:41 Nacl 0.9% IV PETTY PRN Hypotension Losartan Potassium 100 mg 07/05/19 10:00 07/07/19 10:48 Cozaar PO 100 mg QDAY [facility] Administration Multivitamins/Minerals 1 each 07/05/19 10:00 07/07/19 10:50 Theragran-M Tab PO Not Given QDAY [facility] Ondansetron HCl 4 mg 07/04/19 19:55 Zofran IV Q8H PRN Nausea And Vomiting Pravastatin Sodium 80 mg 07/04/19 22:00 07/07/19 23:18 Pravachol PO 80 mg QHS [facility] Administration Sodium Chloride 10 ml 07/04/19 22:00 07/07/19 23:21 Sodium Chloride Flush Syringe 10 Ml IV 10 ml BID SADAF Administration Sodium Chloride 10 ml 07/04/19 19:55 Sodium Chloride Flush Syringe 10 Ml IV PRN PRN LINE FLUSH
[2019-07-08] MEDS: LOSARTAN 50 MG TAB PO SCH (13:01)
[2019-07-08] MEDS: FERROUS SULFATE 325 MG TAB PO SCH (13:02)
[2019-07-08] MEDS: DOXAZOSIN 4 MG TAB PO SCH (13:03)
[2019-07-08] MEDS: FENOFIBRATE 145 MG TAB PO SCH (13:03)
[2019-07-08] MEDS: ASPIRIN 81 MG TAB CHEW PO SCH (13:03)
[2019-07-08] MEDS: allopurinoL 100 MG TAB PO SCH (13:03)
[2019-07-08] MEDS: carvediloL 6.25 MG TAB PO SCH (13:08)
[2019-07-08] MEDS: MULTIVITAMINS,THER W-MINERALS TAB PO SCH (13:12)
[2019-07-08] MEDS: OMEGA-3 FATTY ACIDS/FISH OIL 1 GRAM CAP PO SCH (13:12)
[2019-07-08 13:13] VITALS: BP 138/52
--- NOTE | 2019-07-08 13:37 | Discharge Summary ---
Providers - Providers Date of Admission: 07/05/19 13:06 Date of discharge: 07/08/19 Attending physician: YAJAIRA GUTIERREZ 07/04/19 19:59 Consult to Physician [CONS] Routine Comment: called answ. serv. 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 Patient is confused and unable to provide detailed history at time of exam. Patient is at bedside during exam and interview and provides history. As per the patient's the patient presented to his dialysis center for his routine scheduled dialysis today. Patient was unable to finish his entire dialysis session due to acute onset of confusion and hallucinations. EMS was notified and upon arrival the patient was found to be confused and in distress Discharge diagnosis; --metabolic encephalopathy;Multifactorial --End-stage renal disease on hemodialysis; HD per schedule, nephrology consulted --Nonspecific elevation of cardiac enzymes;NSTMI 2 Patient has no cardiac symptoms like chest pain or shortness of breath Closely monitor --Type 2 diabetes mellitus; Accu-Chek sliding scale coverage ADA diet and insulin as needed --Hypertensive urgency; Resume home antihypertensives and PRN medications --Acute psychosis/hallucinations; Consult psych if no improvement --DVT prophylaxis; Heparin renal dose --Full CODE STATUS; Stable for discharge Disposition: DC/[place]-[facility] SNF [facility] Time spent for discharge: 32 min Core Measure Documentation - Palliative Care Palliative Care/ Comfort Measures: Not Applicable - Core Measures Any of the following diagnoses?: none Exam - Constitutional Vitals: Temp Pulse Resp BP Pulse Ox 97.8 F 64 20 138/52 93 07/08/19 08:30 07/08/19 13:08 07/08/19 09:55 07/08/19 13:08 07/08/19 07:50 General appearance: Present: no acute distress, well-nourished - EENT Eyes: Present: PERRL, EOM intact - Neck Neck: Present: supple, normal ROM - Respiratory Respiratory effort: normal Respiratory: bilateral: diminished, negative: rales, rhonchi, wheezing - Cardiovascular Rhythm: regular Heart Sounds: Present: S1 & S2 - Extremities Extremities: no ischemia, No edema - Abdominal General gastrointestinal: Present: soft, non-tender, non-distended, normal bowel sounds - Integumentary Integumentary: Present: clear, warm - Musculoskeletal Musculoskeletal: strength equal bilaterally - Psychiatric Psychiatric: appropriate mood/affect, cooperative - Neurologic Neurologic: CNII-XII intact, moves all extremities Plan Activity: advance as tolerated, fall precautions Diet: renal Additional Instructions: Follow nephrology/hemodialysis per schedule Follow up with: PRIMARY MD GRAY [Primary Care Provider] - 7 Days JOSE DOCKERY MD [Staff Physician] - 7 Days
== END 2019-07-08 16:30 | DRG 70 ==
LOC: ED 16:03 → 2B-ACE 19:55 → OBSVTOIN 07-05 13:06
PROVIDERS: ADMIT Internal Medicine; ATTEND Internal Medicine
PROC: 5A1D70Z Performance of Urinary Filtration, Intermittent, Less than 6 Hours Per Day (ICD-10-PCS; principal; 2019-07-06)
PROC: 5A1D70Z Performance of Urinary Filtration, Intermittent, Less than 6 Hours Per Day (ICD-10-PCS; 2019-07-08)
DX: G93.41 Metabolic encephalopathy (principal); I21.A1 Myocardial infarction type 2; N18.6 End stage renal disease; I12.0 Hypertensive chronic kidney disease with stage 5 chronic kidney disease or end stage renal disease; F23 Brief psychotic disorder; N25.81 Secondary hyperparathyroidism of renal origin; E11.22 Type 2 diabetes mellitus with diabetic chronic kidney disease; D64.9 Anemia, unspecified; J45.909 Unspecified asthma, uncomplicated; E87.8 Other disorders of electrolyte and fluid balance, not elsewhere classified; I16.0 Hypertensive urgency; Z99.2 Dependence on renal dialysis; Z79.4 Long term (current) use of insulin; Z91.81 History of falling; Z87.442 Personal history of urinary calculi; Z83.3 Family history of diabetes mellitus; Z82.49 Family history of ischemic heart disease and other diseases of the circulatory system
CPT/HCPCS: 36415; 70450; 71045; 80048; 80053; 80061; 80074; 80307; 80320; 81001; 82140; 82550; 82553; 82962; 84439; 84443; 84484; 85025; 85610; 85730; 87116; 93005; 93010; G0378; A9270-GY; G0480; J7030

== ENCOUNTER 2020-07-10 10:04 | Outpatient (CLI) | payer MEDICARE ==
--- NOTE | 2020-07-10 13:46 | Cat Scan Report ---
CTA ABDOMEN, PELVIS, AND LOWER EXTREMITIES WITH CONTRAST INDICATION: PERIPHERAL VASCULAR DISEASE. TECHNIQUE: Axial CT images were obtained through the abdomen, pelvis and lower extremities after injection of an unspecified amount and type of IV contrast. 3 plane MIP reconstructions were produced. All CT scans at this location are performed using CT dose reduction for ALARA by means of automated exposure contr ol. COMPARISON: None available. FINDINGS: CTA ABDOMEN: Abdominal Aorta: The infrarenal abdominal aorta is prominent in caliber, but measures less than 3 cm in maximum dimension. Diffuse calcified and noncalcified plaques are noted. No dissection or other si gnificant abnormality. Celiac Artery: Diffusely calcified without an additional significant abnormality. Superior Mesenteric Artery: Diffusely calcified without an additional significant abnormality. Right Renal Artery: There is a single patent right renal artery containing severely obstructive calci fied and noncalcified plaques at its origin. Diffuse atherosclerosis is present along the remainder o f the vessel without visualization of other sites of high-grade obstruction. Left Renal Artery: There are 3 patent left renal arteries that are diffusely calcified. The most infe riorly located left renal artery is occluded. The remaining 2 left renal arteries are patent without visualization of a high-grade obstruction. The left renal vein is preaortic. Inferior Mesenteric Artery: Diffusely calcified without visualization of high-grade obstruction. CTA PELVIS: RIGHT: - Common Iliac Artery: There is diffuse nonobstructive atherosclerosis without other significant abno rmalities. - Internal Iliac Artery: There is diffuse nonobstructive atherosclerosis without other significant ab normalities. - External Iliac Artery: There is diffuse nonobstructive atherosclerosis without other significant ab normalities. LEFT: - Common Iliac Artery: There is diffuse nonobstructive atherosclerosis without other significant abno rmalities. - Internal Iliac Artery: Severe obstruction/near total occlusion is seen at the vessel origin seconda ry to calcified plaques. The remainder of the vessel contains diffuse calcified plaques without visua lization of a high-grade obstruction. - External Iliac Artery: Diffusely calcified without visualization of a high-grade obstruction. CTA LOWER EXTREMITIES: RIGHT LOWER EXTREMITY: - Common Femoral Artery: Diffusely calcified with moderate obstruction along the distal third of the vessel secondary to calcified plaques. - Superficial Femoral Artery: Diffusely calcified with severe obstruction of short segment at the ves kalli origin. No other significant obstruction is seen. - Profunda Femoral Artery: Diffusely calcified with multiple sites of occlusion seen along the segmen mustapha/subsegmental level. - Popliteal Artery: Diffusely calcified without visualization of significant obstruction. - Anterior Tibial Artery: Small caliber throughout with diffuse calcified plaques, limiting evaluatio n of the vessel lumen. Multiple sites of intermittent occlusion are suspected. - Tibioperoneal Trunk: Occluded without reconstitution flow. - Posterior Tibial Artery: Occluded without distal reconstitution of flow. - Peroneal Artery: Occluded at its origin with reconstitution of flow via a collateral. The vessel re alyssa patent to the foot without identification of other sites of obstruction. - Ankle runoff: 2 vessel. LEFT LOWER EXTREMITY: - Common Femoral Artery: Diffusely calcified without visualization of significant obstruction. - Superficial Femoral Artery: Short segment occlusion is seen along the distal third of the thigh wit h distal reconstitution of flow. Otherwise, the vessel is diffusely calcified without other sites of significant obstruction. - Profunda Femoral Artery: Patent at its origin and diffusely calcified with multiple occlusions seen at the segmental/subsegmental level. - Popliteal Artery: Occluded for a short segment along the distal third of its course. Otherwise diff usely calcified without other sites of significant obstruction. - Anterior Tibial Artery: Occluded at its origin with reconstitution of flow via collaterals along th e middle third of the leg. The vessel is diffusely calcified without other sites of significant obstr uction. - Tibioperoneal Trunk: Occluded. - Posterior Tibial Artery: Occluded without distal reconstitution of flow. - Peroneal Artery: Occluded along the proximal half of its course with reconstitution of flow along t he middle/distal third of the leg via collaterals. The vessel remains patent be on that point to the foot. - Ankle runoff: 2 vessel. NONTARGET STRUCTURES: CHEST: There is a moderate right pleural effusion with associated atelectasis. ABDOMEN:There is severe bilateral renal atrophy. PELVIS:No significant abnormality. LOWER EXTREMITIES:No significant abnormality. SKELETAL: No acute abnormality. Mild degenerative changes are seen along the spine and pelvis. ADDITIONAL FINDINGS: None. IMPRESSION: 1. Severe generalized atherosclerosis along the abdomen, pelvis and lower extremities. 2. 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 3. Severe obstruction proximally along the right renal artery. 4. Severe obstruction/near total occlusion at the origin of the left internal iliac artery. 5. Severe right lower extremity PAD with moderate obstruction distally along the right common femoral artery, severe obstruction at the origin of the superficial femoral artery, multiple sites of occlus ion along the profunda femoral artery, multiple sites of suspected occlusion along the anterior tibia l artery and occlusion of the tibial peroneal trunk and posterior tibial artery as well as the perone al artery at its origin with two-vessel runoff to the right foot. 6. Severe left lower extremity PAD with short segment occlusion along the distal third of the SFA, mu ltiple sites of occlusion along the PFA, occlusion of the distal popliteal artery, occlusion of the t ibioperoneal trunk and posterior tibial arteries and occlusion of the anterior tibial and peroneal ar teries with distal reconstitution of flow and two-vessel runoff to the foot. Signer Name: Jose Raul Lara MD Signed: 07/10/2020 1:42 PM Workstation Name: [id number]
== END 2020-07-10 10:05 | disposition home or self-care (01) ==
LOC: CT 10:04
PROVIDERS: ATTEND Radiology Diagnostic Radiology
DX: I70.0 Atherosclerosis of aorta (principal); I70.213 Atherosclerosis of native arteries of extremities with intermittent claudication, bilateral legs; I70.1 Atherosclerosis of renal artery
CPT/HCPCS: 36415; 75635; 82565; 84520; Q9967

== ENCOUNTER 2020-07-24 06:17 | Inpatient (IN) | payer MEDICARE ==
[2020-07-24] MEDS ORDERED: SODIUM CHLORIDE 0.9% 500 ML 500 ML IV SCH (08:15)
[2020-07-24 08:47] LABS: Mean Corpuscular HGB Conc 33 % (32-34); Mean Corpuscular Volume 97 fl (84-94); Platelet Count 267 K/mm3 (140-440); Red Cell Distribution Width 15.6 % (13.2-15.2)
--- NOTE | 2020-07-24 08:53 | Cat Scan Report ---
CT head/brain wo con INDICATION: Renovascular. Patient had vascular procedure.. TECHNIQUE: Routine CT head. All CT scans at this location are performed using CT dose reduction for A NICO by means of automated exposure control. COMPARISON: 07/04/2019. FINDINGS: Intracranial: Montilla-white matter differentiation is maintained. No intracranial hemorrhage. No extra a xial collection. No hydrocephalus. No herniation. Sinuses: Paranasal sinuses and mastoid air cells are essentially clear. Generalized atrophy. Perivent ricular and centrum semiovale white matter hypoattenuation most consistent with sequela of chronic mi crovascular disease. Remote left basal ganglia lacunar infarction. Anterior and posterior circulation atherosclerotic calcifications. Orbits: Globes are intact. Calvarium: No acute fracture. IMPRESSION: 1. No acute intracranial abnormality. Signer Name: Orlin Stark MD Signed: 07/24/2020 8:49 AM Workstation Name: [id number]
[2020-07-24 08:57] LABS: Calcium 9.2 mg/dL (8.4-10.2)
[2020-07-24 08:59] LABS: INR 1.04 (0.87-1.13)
[2020-07-24] MEDS ORDERED: VANCOMYCIN/NS 1 GM/250 ML 1 GM/250 ML BAG IV ONE (10:37)
--- NOTE | 2020-07-24 10:48 | Emergency Department Report ---
ED General Adult HPI - General Chief complaint: Altered Mental Status PUI?: No Time Seen by Provider: 07/24/20 10:16 Source: RN/MD Mode of arrival: Stretcher Limitations: Altered Mental Status - History of Present Illness Initial comments: Patient presents to the emergency department from interventional radiology/vascular surgery for possible infection of the left foot's great and second digit. Per the patient's this morning the patient fell he hit his head and was confused slightly after this incident. Upon their arrival to the appointment this morning Dr. David was informed of the patient's fall and ordered a CT of the patient's head. Upon further evaluation of the patient's physical findings it was determined that the patient needed to be admitted for antibiotics for infection. -: unknown Location: lower extremity Severity scale (0 -10): 0 Consistency: constant Improves with: none Worsens with: none Associated Symptoms: denies other symptoms Treatments Prior to Arrival: none - Related Data Home Medications Medication Instructions Recorded Confirmed Last Taken Aspirin [Aspirin BABY CHEW TAB] 81 mg PO QDAY 05/01/15 07/05/19 10/02/15 Baking Soda 0.25 tsp PO DAILY 05/01/15 07/05/19 10/02/15 Carvedilol 6.25 mg PO BID 05/01/15 07/05/19 10/03/15 05:00 Doxazosin [Cardura] 4 mg PO BID 05/01/15 07/05/19 10/03/15 05:00 Fenofibrate 160 mg PO DAILY 05/01/15 07/05/19 10/02/15 Ferrous Sulfate [Feosol 325 MG tab] 325 mg PO BID 05/01/15 07/05/19 10/02/15 Losartan [Cozaar] 100 mg PO QDAY 05/01/15 07/05/19 10/03/15 05:00 Multivit-Min/Iron Fum/Folic AC 1 each PO DAILY 05/01/15 07/05/19 10/02/15 [Bxgys-Ytlvcuh-Nihkctqn Tablet] [place]-3 Fatty Acids/Fish Oil [Fish 1 each PO DAILY 05/01/15 07/05/19 10/02/15 Oil] Simvastatin 40 mg PO DAILY 05/01/15 07/05/19 10/02/15 allopurinoL [Zyloprim] 100 mg PO QDAY 05/01/15 07/05/19 10/02/15 Previous Rx's Medication Instructions Recorded Last Taken Type ALBUTEROL NEB's [Proventil 0.083% 2.5 mg IH Q4HRT PRN nebu 07/08/19 Unknown Rx NEBS] Acetaminophen [Acetaminophen TAB] 650 mg PO Q4H PRN tablet 07/08/19 Unknown Rx Multivitamin Tab W-MINERAL 1 each PO QDAY tablet 07/08/19 Unknown Rx [Multiple Vitamin/Mineral (Theragran M)] Allergies Allergy/AdvReac Type Severity Reaction Status Date / Time No Known Allergies Allergy Verified 05/01/15 08:52 ED Review of Systems ROS: Stated complaint: Other details as noted in HPI Comment: All other systems reviewed and negative Constitutional: denies: chills, fever Eyes: denies: eye pain, eye discharge, vision change ENT: denies: ear pain, throat pain Respiratory: denies: cough, shortness of breath, wheezing Cardiovascular: denies: chest pain, palpitations Endocrine: no symptoms reported Gastrointestinal: denies: abdominal pain, nausea, diarrhea Genitourinary: denies: urgency, dysuria Musculoskeletal: denies: back pain, joint swelling, arthralgia Skin: denies: rash, lesions Neurological: denies: headache, weakness, paresthesias Psychiatric: denies: anxiety, depression Hematological/Lymphatic: denies: easy bleeding, easy bruising ED Past Medical Hx - Past Medical History Previous Medical History?: Yes Hx Hypertension: Yes Hx Heart Attack/AMI: No (EKG 09/21/13: SR 71) Hx Diabetes: Yes (on insulin) Hx Renal Disease: Yes Hx Seizures: No Hx Kidney Stones: Yes Hx Asthma: Yes (as a child) Hx HIV: No - Surgical History Past Surgical History?: Yes Additional Surgical History: fistula to left arm - Social History Smoking Status: Unknown if ever smoked Substance Use Type: None - Medications Home Medications: Home Medications Medication Instructions Recorded Confirmed Last Taken Type Aspirin [Aspirin BABY CHEW TAB] 81 mg PO QDAY 05/01/15 07/05/19 10/02/15 History Baking Soda 0.25 tsp PO DAILY 05/01/15 07/05/19 10/02/15 History Carvedilol 6.25 mg PO BID 05/01/15 07/05/19 10/03/15 05:00 History Doxazosin [Cardura] 4 mg PO BID 05/01/15 07/05/19 10/03/15 05:00 History Fenofibrate 160 mg PO DAILY 05/01/15 07/05/19 10/02/15 History Ferrous Sulfate [Feosol 325 MG tab] 325 mg PO BID 05/01/15 07/05/19 10/02/15 History Losartan [Cozaar] 100 mg PO QDAY 05/01/15 07/05/19 10/03/15 05:00 History Multivit-Min/Iron Fum/Folic AC 1 each PO DAILY 05/01/15 07/05/19 10/02/15 History [Umikn-Usdofyo-Zyebxhsu Tablet] [place]-3 Fatty Acids/Fish Oil [Fish 1 each PO DAILY 05/01/15 07/05/19 10/02/15 History Oil] Simvastatin 40 mg PO DAILY 05/01/15 07/05/19 10/02/15 History allopurinoL [Zyloprim] 100 mg PO QDAY 05/01/15 07/05/19 10/02/15 History ALBUTEROL NEB's [Proventil 0.083% 2.5 mg IH Q4HRT PRN nebu 07/08/19 Unknown Rx NEBS] Acetaminophen [Acetaminophen TAB] 650 mg PO Q4H PRN tablet 07/08/19 Unknown Rx Multivitamin Tab W-MINERAL 1 each PO QDAY tablet 07/08/19 Unknown Rx [Multiple Vitamin/Mineral (Theragran M)] ED Physical Exam - General Limitations: Altered Mental Status General appearance: alert, in no apparent distress - Head Head exam: Present: atraumatic, normocephalic - Eye Eye exam: Present: normal appearance, PERRL - ENT ENT exam: Present: mucous membranes moist - Neck Neck exam: Present: normal inspection - Respiratory Respiratory exam: Present: normal lung sounds bilaterally. Absent: respiratory distress - Cardiovascular Cardiovascular Exam: Present: regular rate, normal rhythm. Absent: systolic murmur, diastolic murmur, rubs, gallop - GI/Abdominal GI/Abdominal exam: Present: soft, normal bowel sounds. Absent: distended, tenderness - Rectal Rectal exam: Present: deferred - Extremities Exam Extremities exam: Present: normal inspection, other (Patient has gangrene with soft tissue infection of the great toe and second toe of the left foot) - Back Exam Back exam: Present: normal inspection - Neurological Exam Neurological exam: Present: alert - Psychiatric Psychiatric exam: Present: normal affect, normal mood - Skin Skin exam: Present: warm, dry, intact, normal color. Absent: rash ED Course Vital Signs 07/24/20 07/24/20 07/24/20 08:16 09:11 10:21 Temperature 98.0 F 98.8 F Pulse Rate 74 74 Respiratory 20 Rate Respiratory 14 Rate [Bilateral Shoulder] Blood Pressure 188/78 Blood Pressure 129/105 [Right] O2 Sat by Pulse 97 Oximetry ED Medical Decision Making - Lab Data Result diagrams: 07/24/20 08:40 07/24/20 08:40 Lab Results 07/24/20 07/24/20 07/24/20 Range/Units 08:40 08:40 08:40 WBC 11.3 H (4.5-11.0) K/mm3 RBC 3.40 L (3.65-5.03) M/mm3 Hgb 11.0 L (11.8-15.2) gm/dl Hct 33.0 L (35.5-45.6) % MCV 97 H (84-94) fl MCH 32 (28-32) pg MCHC 33 (32-34) % RDW 15.6 H (13.2-15.2) % Plt Count 267 (140-440) K/mm3 PT 13.5 (12.2-14.9) Sec. INR 1.04 (0.87-1.13) APTT 45.0 H (24.2-36.6) Sec. Sodium 140 (137-145) mmol/L Potassium 4.7 (3.6-5.0) mmol/L Chloride 103.3 (98-107) mmol/L Carbon Dioxide 25 (22-30) mmol/L Anion Gap 16 mmol/L BUN 38 H (9-20) mg/dL Creatinine 4.7 H (0.8-1.3) mg/dL Estimated GFR 12 ml/min BUN/Creatinine Ratio 8 % Glucose 92 (75-100) mg/dL Lactic Acid (0.7-2.0) mmol/L Calcium 9.2 (8.4-10.2) mg/dL 07/24/20 Range/Units 10:20 WBC (4.5-11.0) K/mm3 RBC (3.65-5.03) M/mm3 Hgb (11.8-15.2) gm/dl Hct (35.5-45.6) % MCV (84-94) fl MCH (28-32) pg MCHC (32-34) % RDW (13.2-15.2) % Plt Count (140-440) K/mm3 PT (12.2-14.9) Sec. INR (0.87-1.13) APTT (24.2-36.6) Sec. Sodium (137-145) mmol/L Potassium (3.6-5.0) mmol/L Chloride (98-107) mmol/L Carbon Dioxide (22-30) mmol/L Anion Gap mmol/L BUN (9-20) mg/dL Creatinine (0.8-1.3) mg/dL Estimated GFR ml/min BUN/Creatinine Ratio % Glucose (75-100) mg/dL Lactic Acid 0.90 (0.7-2.0) mmol/L Calcium (8.4-10.2) mg/dL - Radiology Data Radiology results: report reviewed - Medical Decision Making Discussed plan of care with patient's Vancomycin IV started Critical care attestation.: If time is entered above; I have spent that time in minutes in the direct care of this critically ill patient, excluding procedure time. ED Disposition Clinical Impression: Peripheral vascular disease, Gangrene Disposition: OP ADMIT IP TO THIS HOSP Is pt being admited?: Yes Does the pt Need Aspirin: No Condition: Fair Referrals: GRECIA OTOOLE MD [Primary Care Provider] - 3-5 Days
--- NOTE | 2020-07-24 11:34 | History and Physical Report ---
History of Present Illness Chief complaint: He is getting worse History of present illness: 80 YO Male with ESRD on HD (M, W, F), HTN, DM, Vascular Dementia, Cerebral Atherosclerosis presents to ED for evaluation. Patient is confused and unable to provide detailed history at time of exam. Patient is at bedside during exam and interview and provides history. As per the patient's the patient has experienced increased weakness and confusion over the past 1 month with increased bedbound status. Patient was seen and evaluated by his vascular surgeon today and was found to have left foot cellulitis. Patient was instructed to seek further care at [facility]. Patient transported to [facility] via private vehicle for further care and evaluation of the aforementioned symptoms. The patient was seen and evaluated in the emergency department. All lab and imaging studies reviewed. Patient found to have end-stage renal disease, left foot cellulitis complicated by systemic inflammatory response syndrome, as well as peripheral vascular disease. Patient admitted to medical floor and initiated on IV antibiotic therapy. Nephrology team consulted in ED. Vascular surgery team consulted in ED. No further history is obtainable. No reports of fever, chills, chest pain, palpitation, productive cough, skin rash, syncope, trauma, recent ill contacts, or known exposure to COVID-19. Patient is unable to provide history but has a positive gag reflex and is able to protect his airway without difficulty at the time my evaluation. Prior admission on 07/05/2019 reviewed. All medication listed at time of admission has been reconciled. Advanced care planning conducted in ED. Past History Past Medical History: diabetes, ESRD, hypertension, PVD Past Surgical History: Other (Dialysis access) Social history: single, lives with family. denies: smoking, alcohol abuse, prescription drug abuse Family history: diabetes, hypertension Medications and Allergies Allergies Allergy/AdvReac Type Severity Reaction Status Date / Time No Known Allergies Allergy Verified 05/01/15 08:52 Home Medications Medication Instructions Recorded Confirmed Last Taken Type Calcium Acetate [Phoslo] 667 mg PO TID 07/24/20 07/24/20 Unknown History Fenofibrate 160 mg PO QDAY 07/24/20 07/24/20 Unknown History Gabapentin [Neurontin] 100 mg PO Q8HR 07/24/20 07/24/20 Unknown History HYDROcodone/ACETAMINOPHEN 1 each PO Q8HR PRN 07/24/20 07/24/20 Unknown History [Hydrocodone-Acetamin 5-300 mg] Losartan Potassium 100 mg PO QDAY 07/24/20 07/24/20 Unknown History Montelukast [Singulair] 10 mg PO QPM 07/24/20 07/24/20 Unknown History Sevelamer Carbonate [Renvela] 800 mg PO TIDWM 07/24/20 07/24/20 Unknown History Simvastatin 40 mg PO QDAY 07/24/20 07/24/20 Unknown History allopurinoL [Zyloprim] 100 mg PO QDAY 07/24/20 07/24/20 Unknown History traZODone [Desyrel] 50 mg PO QHS 07/24/20 07/24/20 Unknown History traZODone [Desyrel] 50 mg PO QHS 07/24/20 07/24/20 Unknown History Active Meds: Active Medications Sodium Chloride (Nacl 0.9% 500 Ml) 500 mls @ 50 mls/hr IV DIRECT SADAF Vancomycin HCl (Vancomycin/Ns 1 Gm/250 Ml) 1 gm in 250 mls @ 167.007 mls/hr IV ONCE ONE; Protocol Stop: 07/24/20 12:06 Last Admin: 07/24/20 11:14 Dose: 167.007 mls/hr Documented by: Review of Systems ROS unobtainable: due to mental status Exam - Constitutional Vitals: Temp Pulse Resp BP Pulse Ox 98.8 F 74 20 188/78 97 07/24/20 10:21 07/24/20 10:21 07/24/20 09:11 07/24/20 10:07/24/20 09:11 General appearance: Present: mild distress - EENT Eyes: Present: PERRL ENT: hearing intact, clear oral mucosa - Neck Neck: Present: supple, normal ROM - Respiratory Respiratory effort: normal Respiratory: bilateral: CTA - Cardiovascular Heart Sounds: Present: S1 & S2. Absent: rub, click - Extremities Extremities: pulses symmetrical, No edema Peripheral Pulses: within normal limits - Abdominal General gastrointestinal: Present: soft, non-tender, non-distended, normal bowel sounds Male genitourinary: Present: normal - Integumentary Integumentary: Present: clear, warm, dry - Musculoskeletal Musculoskeletal: generalized weakness - Psychiatric Psychiatric: no appropriate mood/affect, no intact judgment & insight, no memory intact - Neurologic Neurologic: CNII-XII intact, no focal deficits, moves all extremities, no gait normal Results - Labs CBC & Chem 7: 07/24/20 08:40 07/24/20 08:40 Labs: Abnormal lab results 07/24/20 07/24/20 07/24/20 Range/Units 08:40 08:40 08:40 WBC 11.3 H (4.5-11.0) K/mm3 RBC 3.40 L (3.65-5.03) M/mm3 Hgb 11.0 L (11.8-15.2) gm/dl Hct 33.0 L (35.5-45.6) % MCV 97 H (84-94) fl RDW 15.6 H (13.2-15.2) % APTT 45.0 H (24.2-36.6) Sec. BUN 38 H (9-20) mg/dL Creatinine 4.7 H (0.8-1.3) mg/dL Assessment and Plan - Patient Problems (1) Systemic inflammatory response syndrome Current Visit: Yes Status: Acute Plan to address problem: CBC, CMP, empiric IV antibiotic therapy x1 dose, repeat CBC in a.m. (2) End stage renal disease Current Visit: No Status: Acute Plan to address problem: Nephrology team consulted in ED, dialysis as per renal team. (3) Cellulitis Current Visit: Yes Status: Acute Qualifiers: Site of cellulitis of extremity: lower extremity Laterality: left Plan to address problem: CBC, CMP, IV antibiotic therapy, supportive care, wound care consulted. (4) Peripheral vascular disease Current Visit: Yes Status: Acute Plan to address problem: Vascular surgery consulted, continue medical management. (5) Acute encephalopathy Current Visit: No Status: Acute Plan to address problem: CT head, neuro check, seizure precautions, aspiration precautions, fall precautions. (6) Vascular dementia Current Visit: Yes Status: Acute Qualifiers: Dementia behavioral disturbance: without behavioral disturbance Qualified Code(s): F01.50 - Vascular dementia without behavioral disturbance Plan to address problem: Verbal prompting, verbal redirection, benzodiazepine therapy as clinically indicated. (7) Cerebral atherosclerosis Current Visit: Yes Status: Acute Plan to address problem: Antiplatelet therapy, risk factor reduction, supportive care. (8) DVT prophylaxis Current Visit: No Status: Acute Plan to address problem: SCD to bilateral lower extremities while in bed, prophylactic anticoagulation. (9) Advance care planning Current Visit: No Status: Acute Plan to address problem: Disease education conducted, care plan discussed, diagnosis discussed, patient is full code, patient knowledges understanding and agreement with care plan, +30 minutes.
--- NOTE | 2020-07-24 11:37 | Consultation ---
History of Present Illness - Reason for Consult Consult date: 07/24/20 LLE PVD with gangrene Requesting physician: CAILIN EDOUARD - History of Present Illness 80 YO Male with ESRD on HD (M, W, F), HTN, DM, Vascular Dementia, Cerebral Atherosclerosis presents to ED for evaluation. Patient is confused and unable to provide detailed history at time of exam. Patient is at bedside during exam and interview and provides history. The patient has been followed for peripheral vascular disease previously by [facility] rn cardiovascular and now by [facility] vascular [place] (starting this month). Patient had bilateral upper extremity digital gangrene and left lower extremity first digit gangrene. He had nonpalpable pedal pulses and therefore CT angiogram of the abdomen pelvis was performed. At the time of follow-up, the patient's left first digit gangrene had worsened and started become slightly wet, and patient was started on antibiotics and set up for revascularization within the next few days. Unfortunately, over the last 2 days, the patient became altered and upon coming to OPP you for evaluation, he was found to be altered with leukocytosis and concern for sepsis was initiated. Patient was sent to the ER for evaluation. In addition, patient had fallen and injured his neck and head area and therefore CT head was obtained which was negative for intracranial blood. Past Medical History: diabetes, ESRD, hypertension, other (See HPI) Past Surgical History: Other (Dialysis access) Social history: , lives with family. denies: smoking, alcohol abuse, prescription drug abuse Family history: diabetes, hypertension Medications and Allergies Allergies Allergy/AdvReac Type Severity Reaction Status Date / Time No Known Allergies Allergy Verified 05/01/15 08:52 Home Medications Medication Instructions Recorded Confirmed Last Taken Type Calcium Acetate [Phoslo] 667 mg PO TID 07/24/20 07/24/20 Unknown History Fenofibrate 160 mg PO QDAY 07/24/20 07/24/20 Unknown History Gabapentin [Neurontin] 100 mg PO Q8HR 07/24/20 07/24/20 Unknown History HYDROcodone/ACETAMINOPHEN 1 each PO Q8HR PRN 07/24/20 07/24/20 Unknown History [Hydrocodone-Acetamin 5-300 mg] Losartan Potassium 100 mg PO QDAY 07/24/20 07/24/20 Unknown History Montelukast [Singulair] 10 mg PO QPM 07/24/20 07/24/20 Unknown History Sevelamer Carbonate [Renvela] 800 mg PO TIDWM 07/24/20 07/24/20 Unknown History Simvastatin 40 mg PO QDAY 07/24/20 07/24/20 Unknown History allopurinoL [Zyloprim] 100 mg PO QDAY 07/24/20 07/24/20 Unknown History traZODone [Desyrel] 50 mg PO QHS 07/24/20 07/24/20 Unknown History traZODone [Desyrel] 50 mg PO QHS 07/24/20 07/24/20 Unknown History Active Meds: Active Medications Sodium Chloride (Nacl 0.9% 500 Ml) 500 mls @ 50 mls/hr IV DIRECT SADAF Vancomycin HCl (Vancomycin/Ns 1 Gm/250 Ml) 1 gm in 250 mls @ 167.007 mls/hr IV ONCE ONE; Protocol Stop: 07/24/20 12:06 Last Admin: 07/24/20 11:14 Dose: 167.007 mls/hr Documented by: Review of Systems ROS unobtainable: due to mental status All systems: negative (see HPI) Exam - Constitutional Vitals: Temp Pulse Resp BP Pulse Ox 98.8 F 74 20 188/78 97 07/24/20 10:21 07/24/20 10:21 07/24/20 09:11 07/24/20 10:21 07/24/20 09:11 General appearance: Present: other (Confused) - EENT Eyes: Present: EOM intact ENT: hearing intact - Neck Neck: Present: supple - Respiratory Respiratory effort: normal - Extremities Extremities: abnormal (Nonpalpable pedal pulses, left first digit wet gangrene, left second digit gangrene, gangrene of a digit of each upper extremity,) - Abdominal General gastrointestinal: Present: soft, non-tender - Psychiatric Psychiatric: no appropriate mood/affect, no intact judgment & insight, agitated, other (Confused) Results - Labs CBC & Chem 7: 07/24/20 08:40 07/24/20 08:40 Labs: Abnormal lab results 07/24/20 07/24/20 07/24/20 Range/Units 08:40 08:40 08:40 WBC 11.3 H (4.5-11.0) K/mm3 RBC 3.40 L (3.65-5.03) M/mm3 Hgb 11.0 L (11.8-15.2) gm/dl Hct 33.0 L (35.5-45.6) % MCV 97 H (84-94) fl RDW 15.6 H (13.2-15.2) % APTT 45.0 H (24.2-36.6) Sec. BUN 38 H (9-20) mg/dL Creatinine 4.7 H (0.8-1.3) mg/dL Assessment and Plan 80-year-old male with end-stage renal disease, bilateral upper extremity digital gangrene, left lower extremity first digit and second digit gangrene, and severe peripheral vascular disease who presents to the hospital with altered mental status from baseline mental status and leukocytosis concerning for sepsis. Sent patient to the emergency room for full evaluation. Will need antibiotics. Concern for source being left first digit and second digit and/or PermCath. Hopefully can perform endovascular revascularization of the left lower extremity prior to first and second digit amputation. May need PermCath exchange during hospitalization. We will follow along. Once medically improved, can consider interventions.
[2020-07-24] MEDS ORDERED: MORPHINE 4 MG/1 ML INJ IV PRN (11:43)
[2020-07-24] MEDS ORDERED: ACETAMINOPHEN 325 MG TAB PO PRN (12:00)
[2020-07-24] MEDS ORDERED: ONDANSETRON 4 MG/2 ML INJ IV PRN (12:00)
[2020-07-24] MEDS ORDERED: oxyCODONE /ACETAMINOPHEN 5-325MG TAB PO PRN (12:30)
[2020-07-24] MEDS ORDERED: MORPHINE 2 MG/1 ML INJ IV PRN (12:30)
[2020-07-24] MEDS ORDERED: NON-FORMULARY EACH (Hydrocodone/Acetaminophen [Hydrocodone-Acetamin 5-300 Mg] 1 EACH Table PO PRN (15:22)
[2020-07-24] MEDS ORDERED: DEXTROSE 50% IN WATER (25GM) 50 ML SYRINGE IV ONE (15:44)
[2020-07-24] MEDS ORDERED: LOSARTAN 50 MG TAB PO SCH (16:00)
[2020-07-24] MEDS: SEVELAMER CARBONATE 800 MG TAB PO SCH (16:12)
[2020-07-24] MEDS: CALCIUM ACETATE 667 MG CAP PO SCH (17:18)
[2020-07-24] MEDS: MONTELUKAST 10 MG TAB PO SCH (17:18)
[2020-07-24] MEDS: GABAPENTIN 100 MG CAP PO SCH (21:50)
[2020-07-24] MEDS: traZODone 50 MG TAB PO SCH (21:50)
[2020-07-24] MEDS: FERROUS SULFATE 325 MG TAB PO SCH (21:50)
[2020-07-24] MEDS: PRAVASTATIN 80 MG TAB PO SCH (21:50)
[2020-07-24] MEDS: DOXAZOSIN 4 MG TAB PO SCH (21:51)
[2020-07-24] MEDS: carvediloL 6.25 MG TAB PO SCH (21:51)
[2020-07-25 06:05] LABS: Basophils # (Auto) 0.1 K/mm3 (0.0-0.1); Basophils % (Auto) 0.6 % (0.0-1.8); Eosinophils # (Auto) 0.1 K/mm3 (0.0-0.4); Eosinophils % (Auto) 0.9 % (0.0-4.3); Hematocrit 29.8 % (35.5-45.6); Hemoglobin 9.5 gm/dl (11.8-15.2); Mean Corpuscular HGB Conc 32 % (32-34); Mean Corpuscular Volume 99 fl (84-94); Monocytes # (Auto) 0.8 K/mm3 (0.0-0.8); Monocytes % (Auto) 6.9 % (0.0-7.3); Platelet Count 203 K/mm3 (140-440); Red Blood Count 3.02 M/mm3 (3.65-5.03); Red Cell Distribution Width 15.9 % (13.2-15.2)
[2020-07-25] MEDS: GABAPENTIN 100 MG CAP PO SCH ×3 (06:21→23:04)
--- NOTE | 2020-07-25 08:52 | Consultation ---
History of Present Illness - History of Present Illness Thank you for the consultation Patient was evaluated today My assessment and plan are as follows #End-stage renal disease: Patient is currently on maintenance hemodialysis on ,Thursday and Thursday schedule Will monitor dialysis-related labs periodically. Hemodialysis nurse to ultrafiltrate as tolerated, systolic blood pressure must be kept above 100, heart rate below 100 #Electrolyte and volume: To monitor and follow #Dialysis Access:his catheter is currently is the present access #Anemia in end-stage renal disease to monitor hemoglobin and hematocrit periodically erythropoietin as needed, #Bone mineral disorder and secondary hyperparathyroidism: Monitor phosphorus and PTH level periodically, #Diet and nutrition: Patient advised to maintain 1200 cc fluid restriction needs to be on protein: 1.5 g/kg body weight daily, supplement should be considered #multiple other comorbidities including peripheral arterial disease underlying dementia, overall health status is not very good, mortality risk is high #due to age and multiple comorbidities his overall long-term prognosis appearsto be very poor #Continue with supportive care More than 35 minutes were spent in direct patient care today at the bedside, If there are any further question in regard to this patient's renal care please call at [phone] Author: Navjot Crandall M.D. [facility], [address] [place] [address] Tel; [phone] Source of information: From the current chart patient is a very poor historian History of present illness #80-year-old male who is currently on maintenance hemodialysis on second shift and is currently being cared and followed by us at the clinic, he is being admitted here with generalized weakness which has been getting worse for past 1 month. Patient is a very poor historian due to prior history of vascular dementia during this admission his BUN was 38 creatinine was 4.7 he will globin was 11.1, he is currently being admitted and treated for systemic inflammatory response syndrome, peripheral arterial disease, and the workup is in progress. Blood cultures currently pending Blood pressure is stable patient is noted to be afebrile today Review of the recent record from the dialysis facility shows that on July 23 his blood pressure was 153/65, his clearance was very good 1.6, is currently being dialyzed through a central venous catheter, his last hemoglobin was 10.2 as of June 2020, serum albumin was 3.7 in June 2020 as far as bone mineral disorder is concerned his phosphorus was well controlled 3.2 calcium was 8.6 mildly low at PTH was well controlled at 270 Past medical history: end-stage renal disease Anemia and end-stage renal disease Secondary hyperparathyroidism Vascular dementia Bone mineral disorder Peripheral arterial disease Current allergies: Reviewed from the current chart Social history: Reviewed from the current chart Family history: Reviewed from the current chart Review of system: Positive for All other review of systems negative Physical examination Vitals: Reviewed General: No acute distress HEENT: Oral mucosa moist no pallor or icterus Neck: Supple without any JVD thyromegaly or nodular mass Chest: Clear to auscultation, catheter site is unremarkable Heart: Regular rate and rhythm S1-S2 heard no S3-S4 Abdomen: Soft nontender, bowel sounds present no renal bruit no suprapubic masses no CVA tenderness noted Extremity: Minimal edema dry skin no peripheral cyanosis Endocrine: Thyroid not enlarged Psychiatric: No agitation and aggression noted Musculoskeletal: No joint effusion noted neurological: Patient is alert awake he is slow to respond but answers questions appropriately he asked me if he will be getting dialysis today And he is on Thursday dialysis Labs and x-rays: Reviewed from this admission Past History Past Medical History: diabetes, ESRD, hypertension, PVD Past Surgical History: Other (Dialysis access) Social history: single, lives with family. denies: smoking, alcohol abuse, prescription drug abuse Family history: diabetes, hypertension Medications and Allergies Allergies Allergy/AdvReac Type Severity Reaction Status Date / Time No Known Allergies Allergy Verified 05/01/15 08:52 Home Medications Medication Instructions Recorded Confirmed Last Taken Type Calcium Acetate [Phoslo] 667 mg PO TID 07/24/20 07/24/20 Unknown History Fenofibrate 160 mg PO QDAY 07/24/20 07/24/20 Unknown History Gabapentin [Neurontin] 100 mg PO Q8HR 07/24/20 07/24/20 Unknown History HYDROcodone/ACETAMINOPHEN 1 each PO Q8HR PRN 07/24/20 07/24/20 Unknown History [Hydrocodone-Acetamin 5-300 mg] Losartan Potassium 100 mg PO QDAY 07/24/20 07/24/20 Unknown History Montelukast [Singulair] 10 mg PO QPM 07/24/20 07/24/20 Unknown History Sevelamer Carbonate [Renvela] 800 mg PO TIDWM 07/24/20 07/24/20 Unknown History Simvastatin 40 mg PO QDAY 07/24/20 07/24/20 Unknown History allopurinoL [Zyloprim] 100 mg PO QDAY 07/24/20 07/24/20 Unknown History traZODone [Desyrel] 50 mg PO QHS 07/24/20 07/24/20 Unknown History traZODone [Desyrel] 50 mg PO QHS 07/24/20 07/24/20 Unknown History Active Meds: Active Medications Acetaminophen (Acetaminophen 325 Mg Tab) 650 mg PO Q4H PRN PRN Reason: Pain MILD(1-3)/Fever >100.5/ANDRADE Albuterol (Albuterol 2.5 Mg/3 Ml Nebu) 2.5 mg IH Q4HRT PRN PRN Reason: Shortness Of Breath Allopurinol (Allopurinol 100 Mg Tab) 100 mg PO QDAY [facility] Calcium Acetate (Calcium Acetate 667 Mg Cap) 667 mg PO TIDWM [facility] Last Admin: 07/24/20 17:18 Dose: 667 mg Documented by: Carvedilol (Carvedilol 6.25 Mg Tab) 6.25 mg PO BID [facility] Last Admin: 07/24/20 21:51 Dose: 6.25 mg Documented by: Doxazosin Mesylate (Doxazosin 4 Mg Tab) 4 mg PO BID [facility] Last Admin: 07/24/20 21:51 Dose: 4 mg Documented by: Fenofibrate (Fenofibrate 145 Mg Tab) 145 mg PO DAILY [facility] Ferrous Sulfate (Ferrous Sulfate 325 Mg Tab) 325 mg PO BID [facility] Last Admin: 07/24/20 21:50 Dose: 325 mg Documented by: Fish Oil ([place]-3 Fatty Acids/Fish Oil 1 Gram Cap) 1,000 mg PO DAILY [facility] Gabapentin (Gabapentin 100 Mg Cap) 100 mg PO Q8HR [facility] Last Admin: 07/25/20 06:21 Dose: 100 mg Documented by: Sodium Chloride (Nacl 0.9% 500 Ml) 500 mls @ 50 mls/hr IV DIRECT [facility] Losartan Potassium (Losartan 50 Mg Tab) 100 mg PO QDAY [facility] Montelukast Sodium (Montelukast 10 Mg Tab) 10 mg PO QPM [facility] Last Admin: 07/24/20 17:18 Dose: 10 mg Documented by: Morphine Sulfate (Morphine 2 Mg/1 Ml Inj) 2 mg IV Q6H PRN PRN Reason: Pain , Severe (7-10) Multivitamins/Minerals (Multivitamins,Ther W-Minerals Tab) 1 each PO QDAY [facility] Ondansetron HCl (Ondansetron 4 Mg/2 Ml Inj) 4 mg IV Q8H PRN PRN Reason: Nausea And Vomiting Oxycodone/Acetaminophen (Oxycodone /Acetaminophen 5-325mg Tab) 1 tab PO Q6H PRN PRN Reason: Pain, Moderate (4-6) Last Admin: 07/25/20 00:30 Dose: 1 tab Documented by: Pravastatin Sodium (Pravastatin 80 Mg Tab) 80 mg PO QHS [facility] Last Admin: 07/24/20 21:50 Dose: 80 mg Documented by: Sevelamer Carbonate (Sevelamer Carbonate 800 Mg Tab) 800 mg PO TIDWM [facility] Last Admin: 07/24/20 16:12 Dose: 800 mg Documented by: Sodium Chloride (Sodium Chloride 0.9% 10 Ml Flush Syringe) 10 ml IV BID [facility] Last Admin: 07/24/20 21:52 Dose: 10 ml Documented by: Sodium Chloride (Sodium Chloride 0.9% 10 Ml Flush Syringe) 10 ml IV PRN PRN PRN Reason: LINE FLUSH Last Admin: 07/24/20 12:39 Dose: 10 ml Documented by: Trazodone HCl (Trazodone 50 Mg Tab) 50 mg PO QHS [facility] Last Admin: 07/24/20 21:50 Dose: 50 mg Documented by: Exam - Vital Signs Vital signs: Vital Signs Resp 14 07/24/20 08:16 Results - Lab Results 07/25/20 05:42 07/25/20 05:42 Most recent lab results Calcium 9.0 mg/dL (8.4-10.2) 07/25/20 05:42
[2020-07-25] MEDS ORDERED: NON-FORMULARY EACH (Losartan [Cozaar] 100 MG Tablet) PO SCH (10:00)
[2020-07-25] MEDS ORDERED: VANCOMYCIN PHARMACY TO DOSE IV SCH (10:00)
[2020-07-25] MEDS ORDERED: NON-FORMULARY EACH (Simvastatin [Simvastatin] 40 MG Tablet) PO SCH ×2 (10:00)
[2020-07-25] MEDS ORDERED: LOSARTAN 50 MG TAB PO SCH (10:00)
[2020-07-25] MEDS ORDERED: PIPERACIL/TAZOBACTA 4.5/NS 100 4.5 GM/100 ML VIAL IV SCH (10:00)
[2020-07-25] MEDS ORDERED: NON-FORMULARY EACH (Losartan Potassium [Losartan Potassium] 100 MG Tablet) PO SCH (10:00)
[2020-07-25] MEDS ORDERED: NON-FORMULARY EACH (Fenofibrate [Fenofibrate] 160 MG Tablet) PO SCH ×2 (10:00)
[2020-07-25] MEDS ORDERED: allopurinoL 100 MG TAB PO SCH (10:00)
[2020-07-25] MEDS: FENOFIBRATE 145 MG TAB PO SCH (10:05)
[2020-07-25] MEDS: DOXAZOSIN 4 MG TAB PO SCH ×2 (10:05→23:07)
[2020-07-25] MEDS: MULTIVITAMINS,THER W-MINERALS TAB PO SCH (10:05)
[2020-07-25] MEDS: FERROUS SULFATE 325 MG TAB PO SCH ×2 (10:06→23:02)
[2020-07-25] MEDS: CALCIUM ACETATE 667 MG CAP PO SCH ×3 (10:06→17:18)
[2020-07-25] MEDS: SEVELAMER CARBONATE 800 MG TAB PO SCH ×3 (10:06→17:18)
[2020-07-25] MEDS: OMEGA-3 FATTY ACIDS/FISH OIL 1 GRAM CAP PO SCH (10:06)
[2020-07-25] MEDS: carvediloL 6.25 MG TAB PO SCH ×2 (10:06→23:03)
[2020-07-25] MEDS: LOSARTAN 50 MG TAB PO SCH (10:06)
[2020-07-25] MEDS: allopurinoL 100 MG TAB PO SCH (10:06)
--- NOTE | 2020-07-25 10:10 | Progress Note ---
Assessment and Plan Assessment and plan: 80 YO Male with ESRD on HD (M, W, F), HTN, DM, Vascular Dementia, Cerebral Atherosclerosis presents to ED for evaluation. Patient is confused and unable to provide detailed history at time of exam. Patient is at bedside during exam and interview and provides history. As per the patient's the patient has experienced increased weakness and confusion over the past 1 month with increased bedbound status. Patient was seen and evaluated by his vascular surgeon today and was found to have left foot cellulitis. Patient was instructed to seek further care at [facility]. Patient transported to [facility] via private vehicle for further care and evaluation of the aforementioned symptoms. The patient was seen and evaluated in the emergency department. All lab and imaging studies reviewed. Patient found to have end-stage renal disease, left foot cellulitis complicated by systemic inflammatory response syndrome, as well as peripheral vascular disease. Patient admitted to medical floor and initiated on IV antibiotic therapy. Nephrology team consulted in ED. Vascular surgery team consulted in ED. No further history is obtainable. No reports of fever, chills, chest pain, palpitation, productive cough, skin rash, syncope, trauma, recent ill contacts, or known exposure to COVID-19. Patient is unable to provide history but has a positive gag reflex and is able to protect his airway without difficulty at the time my evaluation. Prior admission on 07/05/2019 reviewed. All medication listed at time of admission has been reconciled. Advanced care planning conducted in ED. CT: Head: Negative for acute pathology. 07/25: Discussed with the IR, patient with new onset Altered mental status from the last time they saw the patient. Will begin work-up for possible underlying sepsis etiology or source unknown at this time. Will obtain ID consulted and Neurology. Continue abx, attempted to reach family. Concern for stroke is low but considering hx of vasculopathy will obtain Neurology Will also obtain wound consultation. (1) Sepsis Current Visit: Yes Status: Acute Plan to address problem: CBC, CMP, empiric IV antibiotic therapy x1 dose, repeat CBC in a.m. (2) End stage renal disease Current Visit: No Status: Acute Plan to address problem: Nephrology team consulted in ED, dialysis as per renal team. (3) Cellulitis/ left first digit gangrene Current Visit: Yes Status: Acute Qualifiers: Site of cellulitis of extremity: lower extremity Laterality: left Plan to address problem: CBC, CMP, IV antibiotic therapy, supportive care, wound care consulted. (4) Peripheral vascular disease Current Visit: Yes Status: Acute Plan to address problem: Vascular surgery consulted, continue medical management. (5) Acute encephalopathy Current Visit: No Status: Acute Plan to address problem: CT head, neuro check, seizure precautions, aspiration precautions, fall precautions. (6) Vascular dementia Current Visit: Yes Status: Acute Qualifiers: Dementia behavioral disturbance: without behavioral disturbance Qualified Code(s): F01.50 - Vascular dementia without behavioral disturbance Plan to address problem: Verbal prompting, verbal redirection, benzodiazepine therapy as clinically indicated. (7) Cerebral atherosclerosis Current Visit: Yes Status: Acute Plan to address problem: Antiplatelet therapy, risk factor reduction, supportive care. (8) DVT prophylaxis Current Visit: No Status: Acute Plan to address problem: SCD to bilateral lower extremities while in bed, prophylactic anticoagulation. (9) Advance care planning Current Visit: No Status: Acute Plan to address problem: Disease education conducted, care plan discussed, diagnosis discussed, patient is full code, patient knowledges understanding and agreement with care plan, +30 minutes. History Interval history: Patient seen and examined resting comfortably although remains very confused. Hospitalist Physical - Physical exam Narrative exam: General appearance: Present: mild distress - EENT Eyes: Present: PERRL ENT: hearing intact, clear oral mucosa - Neck Neck: Present: supple, normal ROM - Respiratory Respiratory effort: normal Respiratory: bilateral: CTA - Cardiovascular Heart Sounds: Present: S1 & S2. Absent: rub, click - Extremities Extremities: pulses symmetrical, No edema Peripheral Pulses: within normal limits - Abdominal General gastrointestinal: Present: soft, non-tender, non-distended, normal bowel sounds Male genitourinary: Present: normal - Integumentary Integumentary: Present:multiple ischemic necrotic lesions. , warm, dry - Musculoskeletal Musculoskeletal: generalized weakness - Psychiatric Psychiatric: Confused - Neurologic Neurologic: CNII-XII intact, no focal deficits, moves all extremities, no gait normal - Constitutional Vitals: Temp Pulse Resp BP Pulse Ox 99.5 F 69 16 150/72 94 07/25/20 03:55 07/25/20 09:17 07/25/20 09:17 07/25/20 09:17 07/25/20 09:17 General appearance: Present: mild distress Results - Labs CBC & Chem 7: 07/25/20 05:42 07/25/20 05:42 Labs: Laboratory Last Values WBC 11.4 K/mm3 (4.5-11.0) H 07/25/20 05:42 RBC 3.02 M/mm3 (3.65-5.03) L 07/25/20 05:42 Hgb 9.5 gm/dl (11.8-15.2) L 07/25/20 05:42 Hct 29.8 % (35.5-45.6) L 07/25/20 05:42 MCV 99 fl (84-94) H 07/25/20 05:42 MCH 32 pg (28-32) 07/25/20 05:42 MCHC 32 % (32-34) 07/25/20 05:42 RDW 15.9 % (13.2-15.2) H 07/25/20 05:42 Plt Count 203 K/mm3 (140-440) 07/25/20 05:42 Lymph % (Auto) 9.0 % (13.4-35.0) L 07/25/20 05:42 [place] % (Auto) 6.9 % (0.0-7.3) 07/25/20 05:42 Eos % (Auto) 0.9 % (0.0-4.3) 07/25/20 05:42 Baso % (Auto) 0.6 % (0.0-1.8) 07/25/20 05:42 Lymph # (Auto) 1.0 K/mm3 (1.2-5.4) L 07/25/20 05:42 [place] # (Auto) 0.8 K/mm3 (0.0-0.8) 07/25/20 05:42 Eos # (Auto) 0.1 K/mm3 (0.0-0.4) 07/25/20 05:42 Baso # (Auto) 0.1 K/mm3 (0.0-0.1) 07/25/20 05:42 Seg Neutrophils % 82.6 % (40.0-70.0) H 07/25/20 05:42 Seg Neutrophils # 9.4 K/mm3 (1.8-7.7) H 07/25/20 05:42 PT 13.5 Sec. (12.2-14.9) 07/24/20 08:40 INR 1.04 (0.87-1.13) 07/24/20 08:40 APTT 45.0 Sec. (24.2-36.6) H 07/24/20 08:40 Sodium 142 mmol/L (137-145) 07/25/20 05:42 Potassium 5.1 mmol/L (3.6-5.0) H 07/25/20 05:42 Chloride 106.9 mmol/L (98-107) 07/25/20 05:42 Carbon Dioxide 25 mmol/L (22-30) 07/25/20 05:42 Anion Gap 15 mmol/L 07/25/20 05:42 BUN 53 mg/dL (9-20) H 07/25/20 05:42 Creatinine 6.1 mg/dL (0.8-1.3) H 07/25/20 05:42 Estimated GFR 9 ml/min 07/25/20 05:42 BUN/Creatinine Ratio 9 % 07/25/20 05:42 Glucose 122 mg/dL (75-100) H 07/25/20 05:42 POC Glucose 108 mg/dL (70-105) H 07/25/20 07:43 Lactic Acid 0.90 mmol/L (0.7-2.0) 07/24/20 10:20 Calcium 9.0 mg/dL (8.4-10.2) 07/25/20 05:42 Microbiology: Microbiology 07/24/20 10:20 Peripheral/Venous Blood Culture - Preliminary Culture in Progress 07/24/20 10:20 Peripheral/Venous Blood Culture - Preliminary Culture in Progress Jaimes/IV: Voiding Method Incontinent Active Medications - Current Medications Current Medications: Generic Name Dose Route Start Last Admin Trade Name Freq PRN Reason Stop Dose Admin Acetaminophen 650 mg 07/24/20 12:34 Acetaminophen 325 Mg Tab PO Q4H PRN Pain MILD(1-3)/Fever >100.5/ANDRADE Albuterol 2.5 mg 07/24/20 12:30 Albuterol 2.5 Mg/3 Ml Nebu IH Q4HRT PRN Shortness Of Breath Allopurinol 100 mg 07/25/20 10:00 Allopurinol 100 Mg Tab PO QDAY [facility] Calcium Acetate 667 mg 07/24/20 17:00 07/24/20 17:18 Calcium Acetate 667 Mg Cap PO 667 mg TIDWM [facility] Administration Carvedilol 6.25 mg 07/24/20 22:00 07/24/20 21:51 Carvedilol 6.25 Mg Tab PO 6.25 mg BID [facility]AD[facility] Administration Doxazosin Mesylate 4 mg 07/24/20 22:00 07/24/20 21:51 Doxazosin 4 Mg Tab PO 4 mg BID [facility]AD[facility] Administration Fenofibrate 145 mg 07/25/20 10:00 Fenofibrate 145 Mg Tab PO DAILY [facility] Ferrous Sulfate 325 mg 07/24/20 22:00 07/24/20 21:50 Ferrous Sulfate 325 Mg Tab PO 325 mg BID [facility] Administration Fish Oil 1,000 mg 07/25/20 10:00 [place]-3 Fatty Acids/Fish Oil 1 Gram Cap PO DAILY [facility] Gabapentin 100 mg 07/24/20 22:00 07/25/20 06:21 Gabapentin 100 Mg Cap PO 100 mg Q8HR [facility] Administration Sodium Chloride 500 mls @ 50 mls/hr 07/24/20 08:15 Nacl 0.9% 500 Ml IV DIRECT [facility] Piperacillin Sod/Tazobactam Sod 4.5 gm in 100 mls @ 200 mls/hr 07/25/20 10:00 Zosyn/Ns 4.5gm/100ml IV Q8H [facility] Protocol Losartan Potassium 100 mg 07/25/20 10:00 Losartan 50 Mg Tab PO QDAY [facility] Montelukast Sodium 10 mg 07/24/20 18:00 07/24/20 17:18 Montelukast 10 Mg Tab PO 10 mg QPM [facility] Administration Morphine Sulfate 2 mg 07/24/20 12:30 Morphine 2 Mg/1 Ml Inj IV Q6H PRN Pain , Severe (7-10) Multivitamins/Minerals 1 each 07/25/20 10:00 Multivitamins,Ther W-Minerals Tab PO QDAY [facility] Ondansetron HCl 4 mg 07/24/20 12:00 Ondansetron 4 Mg/2 Ml Inj IV Q8H PRN Nausea And Vomiting Oxycodone/Acetaminophen 1 tab 07/24/20 12:30 07/25/20 00:30 Oxycodone /Acetaminophen 5-325mg Tab PO 1 tab Q6H PRN Administration Pain, Moderate (4-6) Pravastatin Sodium 80 mg 07/24/20 22:00 07/24/20 21:50 Pravastatin 80 Mg Tab PO 80 mg QHS [facility] Administration Sevelamer Carbonate 800 mg 07/24/20 17:00 07/24/20 16:12 Sevelamer Carbonate 800 Mg Tab PO 800 mg TIDWM [facility] Administration Sodium Chloride 10 ml 07/24/20 12:30 07/24/20 21:52 Sodium Chloride 0.9% 10 Ml Flush Syringe IV 10 ml BID [facility] Administration Sodium Chloride 10 ml 07/24/20 12:30 07/24/20 12:39 Sodium Chloride 0.9% 10 Ml Flush Syringe IV 10 ml PRN PRN Administration LINE FLUSH Trazodone HCl 50 mg 07/24/20 22:00 07/24/20 21:50 Trazodone 50 Mg Tab PO 50 mg QHS [facility] Administration
--- NOTE | 2020-07-25 11:17 | Consultation ---
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 He is bedbound. Hospital course so far reveals left foot cellulitis with SIRS. He notes he feels better than when he first came in. Past History Past Medical History: diabetes, ESRD, hypertension, PVD Past Surgical History: Other (Dialysis access) Social history: single, lives with family. denies: smoking, alcohol abuse, prescription drug abuse Family history: diabetes, hypertension Medications and Allergies Allergies Allergy/AdvReac Type Severity Reaction Status Date / Time No Known Allergies Allergy Verified 05/01/15 08:52 Home Medications Medication Instructions Recorded Confirmed Last Taken Type Calcium Acetate [Phoslo] 667 mg PO TID 07/24/20 07/24/20 Unknown History Fenofibrate 160 mg PO QDAY 07/24/20 07/24/20 Unknown History Gabapentin [Neurontin] 100 mg PO Q8HR 07/24/20 07/24/20 Unknown History HYDROcodone/ACETAMINOPHEN 1 each PO Q8HR PRN 07/24/20 07/24/20 Unknown History [Hydrocodone-Acetamin 5-300 mg] Losartan Potassium 100 mg PO QDAY 07/24/20 07/24/20 Unknown History Montelukast [Singulair] 10 mg PO QPM 07/24/20 07/24/20 Unknown History Sevelamer Carbonate [Renvela] 800 mg PO TIDWM 07/24/20 07/24/20 Unknown History Simvastatin 40 mg PO QDAY 07/24/20 07/24/20 Unknown History allopurinoL [Zyloprim] 100 mg PO QDAY 07/24/20 07/24/20 Unknown History traZODone [Desyrel] 50 mg PO QHS 07/24/20 07/24/20 Unknown History traZODone [Desyrel] 50 mg PO QHS 07/24/20 07/24/20 Unknown History Active Meds: Active Medications Acetaminophen (Acetaminophen 325 Mg Tab) 650 mg PO Q4H PRN PRN Reason: Pain MILD(1-3)/Fever >100.5/ANDRADE Albuterol (Albuterol 2.5 Mg/3 Ml Nebu) 2.5 mg IH Q4HRT PRN PRN Reason: Shortness Of Breath Allopurinol (Allopurinol 100 Mg Tab) 100 mg PO QDAY [facility] Last Admin: 07/25/20 10:06 Dose: 100 mg Documented by: Calcium Acetate (Calcium Acetate 667 Mg Cap) 667 mg PO TIDWM [facility] Last Admin: 07/25/20 10:06 Dose: 667 mg Documented by: Carvedilol (Carvedilol 6.25 Mg Tab) 6.25 mg PO BID [facility] Last Admin: 07/25/20 10:06 Dose: 6.25 mg Documented by: Doxazosin Mesylate (Doxazosin 4 Mg Tab) 4 mg PO BID [facility] Last Admin: 07/25/20 10:05 Dose: 4 mg Documented by: Fenofibrate (Fenofibrate 145 Mg Tab) 145 mg PO DAILY [facility] Last Admin: 07/25/20 10:05 Dose: 145 mg Documented by: Ferrous Sulfate (Ferrous Sulfate 325 Mg Tab) 325 mg PO BID [facility] Last Admin: 07/25/20 10:06 Dose: 325 mg Documented by: Fish Oil ([place]-3 Fatty Acids/Fish Oil 1 Gram Cap) 1,000 mg PO DAILY [facility] Last Admin: 07/25/20 10:06 Dose: 1,000 mg Documented by: Gabapentin (Gabapentin 100 Mg Cap) 100 mg PO Q8HR [facility] Last Admin: 07/25/20 06:21 Dose: 100 mg Documented by: Sodium Chloride (Nacl 0.9% 500 Ml) 500 mls @ 50 mls/hr IV DIRECT [facility] Piperacillin Sod/Tazobactam Sod (Zosyn/Ns 2.25 Gm/50ml) 2.25 gm in 50 mls @ 100 mls/hr IV Q8H [facility] Losartan Potassium (Losartan 50 Mg Tab) 100 mg PO QDAY [facility] Last Admin: 07/25/20 10:06 Dose: 100 mg Documented by: Montelukast Sodium (Montelukast 10 Mg Tab) 10 mg PO QPM [facility] Last Admin: 07/24/20 17:18 Dose: 10 mg Documented by: Morphine Sulfate (Morphine 2 Mg/1 Ml Inj) 2 mg IV Q6H PRN PRN Reason: Pain , Severe (7-10) Multivitamins/Minerals (Multivitamins,Ther W-Minerals Tab) 1 each PO QDAY [facility] Last Admin: 07/25/20 10:05 Dose: 1 each Documented by: Ondansetron HCl (Ondansetron 4 Mg/2 Ml Inj) 4 mg IV Q8H PRN PRN Reason: Nausea And Vomiting Oxycodone/Acetaminophen (Oxycodone /Acetaminophen 5-325mg Tab) 1 tab PO Q6H PRN PRN Reason: Pain, Moderate (4-6) Last Admin: 07/25/20 00:30 Dose: 1 tab Documented by: Pravastatin Sodium (Pravastatin 80 Mg Tab) 80 mg PO QHS [facility] Last Admin: 07/24/20 21:50 Dose: 80 mg Documented by: Sevelamer Carbonate (Sevelamer Carbonate 800 Mg Tab) 800 mg PO TIDWM [facility] Last Admin: 07/25/20 10:06 Dose: 800 mg Documented by: Sodium Chloride (Sodium Chloride 0.9% 10 Ml Flush Syringe) 10 ml IV BID [facility] Last Admin: 07/25/20 10:06 Dose: 10 ml Documented by: Sodium Chloride (Sodium Chloride 0.9% 10 Ml Flush Syringe) 10 ml IV PRN PRN PRN Reason: LINE FLUSH Last Admin: 07/24/20 12:39 Dose: 10 ml Documented by: Trazodone HCl (Trazodone 50 Mg Tab) 50 mg PO QHS [facility] Last Admin: 07/24/20 21:50 Dose: 50 mg Documented by: Review of Systems All systems: negative (as per HPI;) Physical Examination - Vital Signs Vital Signs: Vital Signs Resp 14 07/24/20 08:16 - Physical Exam Narrative exam: Gen: nad, well-nourished; Head: normocephalic; Eyes: no gaze deviation; no ptosis; ENT: normal vocalization; CVS: warm and well-perfused at upper exts; Pulm: no respiratory distress; GI: appears non-distended; Ext: no edema at distal extremities; +avf at LUE; +gangrenous toes at LLE; Skin: no acute rash at distal extremities; Heme: no pathologic bruising or ecchymosis at distal extremities; Neuro: alert, oriented to name, age, , not month, not year, not surroundings, slight dysarthria, +mixed mild dysphasia, CN 2 - PERRL, visual maya intact, CN 3, 4, 6 - EOMI, CN 5 - facial sensation symmetric to light touch, CN 7 - facial movement symmetric, CN 8 - hearing grossly intact, CN 9, 10 - uvula midline, CN 11 - shrug symmetric, CN 12 - tongue midline; Motor - decreased bulk at LEs compared to UEs; at least 3/5 at proximal & 4-/5 at distal right exts; at least 3/5 at proximal and at least 3+/5 at distal LUE and at least 3/5 proximal and 2/5 distal LLE; +negative myoclonus; Sensory - light touch decreased at left arm/leg, Cerebellar - fnf/hts difficulty bilaterally; Gait - deferred secondary to fall risk; Results - Laboratory Findings CBC and BMP: 07/25/20 05:42 07/25/20 05:42 Abnormal Lab Findings: Abnormal Labs 07/24/20 07/24/20 07/24/20 08:40 08:40 08:40 WBC 11.3 H RBC 3.40 L Hgb 11.0 L Hct 33.0 L MCV 97 H RDW 15.6 H Lymph % (Auto) Lymph # (Auto) Seg Neutrophils % Seg Neutrophils # APTT 45.0 H Potassium BUN 38 H Creatinine 4.7 H Glucose POC Glucose 07/24/20 07/24/20 07/24/20 15:41 15:57 20:52 WBC RBC Hgb Hct MCV RDW Lymph % (Auto) Lymph # (Auto) Seg Neutrophils % Seg Neutrophils # APTT Potassium BUN Creatinine Glucose POC Glucose 18 L 128 H 108 H 07/25/20 07/25/20 07/25/20 05:42 05:42 07:43 WBC 11.4 H RBC 3.02 L Hgb 9.5 L Hct 29.8 L MCV 99 H RDW 15.9 H Lymph % (Auto) 9.0 L Lymph # (Auto) 1.0 L Seg Neutrophils % 82.6 H Seg Neutrophils # 9.4 H APTT Potassium 5.1 H BUN 53 H Creatinine 6.1 H Glucose 122 H POC Glucose 108 H Assessment and Plan 80 yo male with htn, dm, vascular dementia, icad, esrdx on hd who presents with noted encephalopathy with noted weakness/confusion over the last one month. 1. Metabolic Encephalopathy - prealbumin, b12, folate, tsh, thiamine recommended. 2. Generalized weakness - prealbumin, 25-OH vitamin d, b12, tsh, copper levels recommended; evidence of deconditioning noted on exam; pt/ot evaluation/monitoring. 3. Stroke - MRI Brain wo contrast when clinically stable. 4. Cervical Stenosis - MRI C-Spine wo contrast when clinically stable. 5. HTN - normotension. 6. DM - maintain euglycemia. 7. Dementia - see #1. Gilson Parry MD Neurology
[2020-07-25] MEDS: PIPERACIL-TAZO 2.25 GM/50 ML 2.25 GM/50 ML BAG IV SCH (11:25)
--- NOTE | 2020-07-25 14:22 | Consultation ---
History of Present Illness - Reason for Consult Consult date: 07/25/20 Sepsis Requesting physician: TANNER JIMENES - History of Present Illness The patient is a 80-year-old male with ESRD on HD, diabetes, hypertension, prior CVA, vascular dementia was admitted to the hospital with increasing confusion over the past 1 month. He was also recently diagnosed with left foot cellulitis and worsening gangrene, started on empiric antibiotics as outpatient. Upon evaluation in the ER, afebrile, had mild leukocytosis with WBC of 11.3K. CT head showed no acute intracranial abnormality. Has been drowsy, ID consulted for sepsis evaluation. Poor historian due to AMS. Review of Systems: Confused, ROS limited Past History Past Medical History: diabetes, ESRD, hypertension, PVD Past Surgical History: Other (Dialysis access) Social history: single, lives with family. denies: smoking, alcohol abuse, prescription drug abuse Family history: diabetes, hypertension Medications and Allergies Allergies Allergy/AdvReac Type Severity Reaction Status Date / Time No Known Allergies Allergy Verified 05/01/15 08:52 Home Medications Medication Instructions Recorded Confirmed Last Taken Type Calcium Acetate [Phoslo] 667 mg PO TID 07/24/20 07/24/20 Unknown History Fenofibrate 160 mg PO QDAY 07/24/20 07/24/20 Unknown History Gabapentin [Neurontin] 100 mg PO Q8HR 07/24/20 07/24/20 Unknown History HYDROcodone/ACETAMINOPHEN 1 each PO Q8HR PRN 07/24/20 07/24/20 Unknown History [Hydrocodone-Acetamin 5-300 mg] Losartan Potassium 100 mg PO QDAY 07/24/20 07/24/20 Unknown History Montelukast [Singulair] 10 mg PO QPM 07/24/20 07/24/20 Unknown History Sevelamer Carbonate [Renvela] 800 mg PO TIDWM 07/24/20 07/24/20 Unknown History Simvastatin 40 mg PO QDAY 07/24/20 07/24/20 Unknown History allopurinoL [Zyloprim] 100 mg PO QDAY 07/24/20 07/24/20 Unknown History traZODone [Desyrel] 50 mg PO QHS 07/24/20 07/24/20 Unknown History traZODone [Desyrel] 50 mg PO QHS 07/24/20 07/24/20 Unknown History Active Meds: Active Medications Acetaminophen (Acetaminophen 325 Mg Tab) 650 mg PO Q4H PRN PRN Reason: Pain MILD(1-3)/Fever >100.5/ANDRADE Albuterol (Albuterol 2.5 Mg/3 Ml Nebu) 2.5 mg IH Q4HRT PRN PRN Reason: Shortness Of Breath Allopurinol (Allopurinol 100 Mg Tab) 100 mg PO QDAY [facility] Last Admin: 07/25/20 10:06 Dose: 100 mg Documented by: Calcium Acetate (Calcium Acetate 667 Mg Cap) 667 mg PO TIDWM [facility] Last Admin: 07/25/20 14:09 Dose: 667 mg Documented by: Carvedilol (Carvedilol 6.25 Mg Tab) 6.25 mg PO BID [facility] Last Admin: 07/25/20 10:06 Dose: 6.25 mg Documented by: Doxazosin Mesylate (Doxazosin 4 Mg Tab) 4 mg PO BID [facility] Last Admin: 07/25/20 10:05 Dose: 4 mg Documented by: Fenofibrate (Fenofibrate 145 Mg Tab) 145 mg PO DAILY [facility] Last Admin: 07/25/20 10:05 Dose: 145 mg Documented by: Ferrous Sulfate (Ferrous Sulfate 325 Mg Tab) 325 mg PO BID [facility] Last Admin: 07/25/20 10:06 Dose: 325 mg Documented by: Fish Oil ([place]-3 Fatty Acids/Fish Oil 1 Gram Cap) 1,000 mg PO DAILY [facility] Last Admin: 07/25/20 10:06 Dose: 1,000 mg Documented by: Gabapentin (Gabapentin 100 Mg Cap) 100 mg PO Q8HR [facility] Last Admin: 07/25/20 14:09 Dose: 100 mg Documented by: Sodium Chloride (Nacl 0.9% 500 Ml) 500 mls @ 50 mls/hr IV DIRECT [facility] Piperacillin Sod/Tazobactam Sod (Zosyn/Ns 2.25 Gm/50ml) 2.25 gm in 50 mls @ 100 mls/hr IV Q8H [facility] Last Admin: 07/25/20 11:25 Dose: 100 mls/hr Documented by: Losartan Potassium (Losartan 50 Mg Tab) 100 mg PO QDAY [facility] Last Admin: 07/25/20 10:06 Dose: 100 mg Documented by: Montelukast Sodium (Montelukast 10 Mg Tab) 10 mg PO QPM [facility] Last Admin: 07/24/20 17:18 Dose: 10 mg Documented by: Morphine Sulfate (Morphine 2 Mg/1 Ml Inj) 2 mg IV Q6H PRN PRN Reason: Pain , Severe (7-10) Multivitamins/Minerals (Multivitamins,Ther W-Minerals Tab) 1 each PO QDAY [facility] Last Admin: 07/25/20 10:05 Dose: 1 each Documented by: Ondansetron HCl (Ondansetron 4 Mg/2 Ml Inj) 4 mg IV Q8H PRN PRN Reason: Nausea And Vomiting Oxycodone/Acetaminophen (Oxycodone /Acetaminophen 5-325mg Tab) 1 tab PO Q6H PRN PRN Reason: Pain, Moderate (4-6) Last Admin: 07/25/20 00:30 Dose: 1 tab Documented by: Pravastatin Sodium (Pravastatin 80 Mg Tab) 80 mg PO QHS [facility] Last Admin: 07/24/20 21:50 Dose: 80 mg Documented by: Sevelamer Carbonate (Sevelamer Carbonate 800 Mg Tab) 800 mg PO TIDWM [facility] Last Admin: 07/25/20 14:09 Dose: 800 mg Documented by: Sodium Chloride (Sodium Chloride 0.9% 10 Ml Flush Syringe) 10 ml IV BID [facility] Last Admin: 07/25/20 10:06 Dose: 10 ml Documented by: Sodium Chloride (Sodium Chloride 0.9% 10 Ml Flush Syringe) 10 ml IV PRN PRN PRN Reason: LINE FLUSH Last Admin: 07/24/20 12:39 Dose: 10 ml Documented by: Trazodone HCl (Trazodone 50 Mg Tab) 50 mg PO QHS [facility] Last Admin: 07/24/20 21:50 Dose: 50 mg Documented by: Physical Examination - Physical Exam Narrative exam: Physical Exam: Constitutional: Confused Head, Ears, Nose: Normocephalic, atraumatic. External ears, nose normal Eyes: Conjunctivae/corneas clear. No icterus. No ptosis. Neck: Supple, no meningeal signs Cardiovascular: S1, S2 normal. Respiratory: Good air entry, clear to auscultation bilaterally GI: Soft, non-tender; bowel sounds normal. No peritoneal signs Musculoskeletal: Left great toe and second toe with gangrenous change Skin: Scabs on bilateral feet. Hem/Lymphatic: No palpable cervical or supraclavicular nodes. No lymphangitis Psych: Confused, no agitation Neurological: drowsy. confused - Constitutional Vitals: Vital Signs Temp Pulse Resp BP Pulse Ox 97.9 F 69 16 146/54 94 07/25/20 10:14 07/25/20 10:00 07/25/20 10:14 07/25/20 11:27 07/25/20 09:17 Temperature -Last 24 Hours Temperature 97.9 F Temperature 99.5 F Temperature 98.1 F Temperature 98.6 F Temperature 97.9 F Results - Labs CBC & Chem 7: 07/25/20 05:42 07/25/20 05:42 Labs: Abnormal lab results 07/24/20 07/24/20 07/24/20 Range/Units 15:41 15:57 20:52 WBC (4.5-11.0) K/mm3 RBC (3.65-5.03) M/mm3 Hgb (11.8-15.2) gm/dl Hct (35.5-45.6) % MCV (84-94) fl RDW (13.2-15.2) % Lymph % (Auto) (13.4-35.0) % Lymph # (Auto) (1.2-5.4) K/mm3 Seg Neutrophils % (40.0-70.0) % Seg Neutrophils # (1.8-7.7) K/mm3 Potassium (3.6-5.0) mmol/L BUN (9-20) mg/dL Creatinine (0.8-1.3) mg/dL Glucose (75-100) mg/dL POC Glucose 18 L 128 H 108 H (70-105) mg/dL 07/25/20 07/25/20 07/25/20 Range/Units 05:42 05:42 07:43 WBC 11.4 H (4.5-11.0) K/mm3 RBC 3.02 L (3.65-5.03) M/mm3 Hgb 9.5 L (11.8-15.2) gm/dl Hct 29.8 L (35.5-45.6) % MCV 99 H (84-94) fl RDW 15.9 H (13.2-15.2) % Lymph % (Auto) 9.0 L (13.4-35.0) % Lymph # (Auto) 1.0 L (1.2-5.4) K/mm3 Seg Neutrophils % 82.6 H (40.0-70.0) % Seg Neutrophils # 9.4 H (1.8-7.7) K/mm3 Potassium 5.1 H (3.6-5.0) mmol/L BUN 53 H (9-20) mg/dL Creatinine 6.1 H (0.8-1.3) mg/dL Glucose 122 H (75-100) mg/dL POC Glucose 108 H (70-105) mg/dL - Imaging and Cardiology CT Scan - head: report reviewed, image reviewed (no acute findings) Assessment and Plan Cultures: 07/24/2020 blood culture: No growth A/P: 80-year-old male with ESRD on HD, diabetes, hypertension, prior CVA, vascular dementia: #Left foot cellulitis with gangrenous changes involving 1st and 2nd toes: Vascular following. Continue empiric antibiotics for now #Acute encephalopathy: Neurology consulted. Agree with MRI brain. #ESRD on HD: Renally dose antibiotics. Recs: -Continue renally dosed Zosyn, vancomycin Arben Payne MD, FACP [facility] ([facility] O: [phone] F: [phone]
[2020-07-25] MEDS ORDERED: SODIUM CHLORIDE 0.9% 100 ML IV PRN (14:30)
[2020-07-25 16:13] LABS: Hepatitis B Surface Antigen Non-Reactive (Negative); Hepatitis C Virus Antibody Non-Reactive (NonReactive)
[2020-07-25] MEDS ORDERED: VANCOMYCIN 500 MG in SODIUM CHLORIDE 0.9% 100 ML IV ONE (18:00)
[2020-07-25] MEDS: MONTELUKAST 10 MG TAB PO SCH (18:32)
[2020-07-25] MEDS: traZODone 50 MG TAB PO SCH (23:04)
[2020-07-25] MEDS: PRAVASTATIN 80 MG TAB PO SCH (23:07)
[2020-07-26] MEDS: PIPERACIL-TAZO 2.25 GM/50 ML 2.25 GM/50 ML BAG IV SCH ×4 (05:37→18:48)
[2020-07-26] MEDS: GABAPENTIN 100 MG CAP PO SCH ×4 (05:38→22:02)
--- NOTE | 2020-07-26 08:42 | Progress Note ---
Subjective Interval history: Patient was seen today for follow-up of multiple renal related issues No complaints of any chest pain pressure or shortness of breath Interdisciplinary notes that also reviewed Events of 24 hours vitals labs intake output medications were reviewed Past medical history: Reviewed Family history: Reviewed Social history: Reviewed Allergies: Reviewed Physical examination: Vitals: Reviewed HEENT: No pallor or icterus oral mucosa moist Neck: Supple no JVD no thyromegaly Chest: Bilateral clear to auscultation anteriorly Heart: Regular rate and rhythm S1-S2 heard no S3-S4 Abdomen: Soft nontender no voluntary guarding rigidity rebound Extremity: Dry skin less than 1+ peripheral edema Psychiatric: No evidence of agitation and aggression noted Dermatology: No petechial rashes Labs and x-rays: Reviewed from today Assessment and plan #End-stage renal disease: Continue with hemodialysis treatment Thursday and Thursday dialysis access is a central venous catheter #Hypertension: Uncontrolled quite likely secondary, quite likely renovascular Consider adding hydralazine 25 mg 3 times a day if needed #Anemia in end-stage renal disease: To monitor and follow, will give erythropoietin 20,000 units weekly #Diet and nutrition: Patient needs to be in high protein diet #Volume and electrolyte mild hyperkalemia 5.1 overall stable #Bone mineral disorder: Check phosphorus and PTH level periodically #Multiple other complex comorbidities currently being managed by primary team #Go peripheral arterial disease, worsening gangrene, will discuss the care plan with vascular #Due to end-stage renal disease and multiple comorbidities prognosis remains guarded long-term appears to be guarded to poor Patient was adequately counseled and educated regarding all the renal related issues Laboratory studies, have been explained to the patient All questions were answered and simple [place] We'll continue to follow and make recommendation for renal standpoint Objective - Vital Signs Vital signs: Vital Signs - 12hr 07/25/20 07/26/20 07/26/20 21:02 00:26 04:39 Temperature 98.9 F 99.4 F 98.7 F Pulse Rate 70 43 L 63 Respiratory 20 18 18 Rate Blood Pressure 157/63 159/36 146/62 O2 Sat by Pulse 93 100 Oximetry 07/26/20 07:59 Temperature 97.7 F Pulse Rate 63 Respiratory 20 Rate Blood Pressure 198/100 O2 Sat by Pulse 98 Oximetry - Lab 07/25/20 05:42 07/25/20 05:42 Most recent lab results Calcium 9.0 mg/dL (8.4-10.2) 07/25/20 05:42 Medications & Allergies - Medications Allergies/Adverse Reactions: Allergies No Known Allergies Allergy (Verified 05/01/15 08:52) Home Medications: Home Medications Medication Instructions Recorded Confirmed Last Taken Type Calcium Acetate [Phoslo] 667 mg PO TID 07/24/20 07/24/20 Unknown History Fenofibrate 160 mg PO QDAY 07/24/20 07/24/20 Unknown History Gabapentin [Neurontin] 100 mg PO Q8HR 07/24/20 07/24/20 Unknown History HYDROcodone/ACETAMINOPHEN 1 each PO Q8HR PRN 07/24/20 07/24/20 Unknown History [Hydrocodone-Acetamin 5-300 mg] Losartan Potassium 100 mg PO QDAY 07/24/20 07/24/20 Unknown History Montelukast [Singulair] 10 mg PO QPM 07/24/20 07/24/20 Unknown History Sevelamer Carbonate [Renvela] 800 mg PO TIDWM 07/24/20 07/24/20 Unknown History Simvastatin 40 mg PO QDAY 07/24/20 07/24/20 Unknown History allopurinoL [Zyloprim] 100 mg PO QDAY 07/24/20 07/24/20 Unknown History traZODone [Desyrel] 50 mg PO QHS 07/24/20 07/24/20 Unknown History traZODone [Desyrel] 50 mg PO QHS 07/24/20 07/24/20 Unknown History Active Medications: Generic Name Dose Route Start Last Admin Trade Name Freq PRN Reason Stop Dose Admin Acetaminophen 650 mg 07/24/20 12:34 Acetaminophen 325 Mg Tab PO Q4H PRN Pain MILD(1-3)/Fever >100.5/ANDRADE Albuterol 2.5 mg 07/24/20 12:30 Albuterol 2.5 Mg/3 Ml Nebu IH Q4HRT PRN Shortness Of Breath Allopurinol 100 mg 07/25/20 10:00 07/25/20 10:06 Allopurinol 100 Mg Tab PO 100 mg QDAY [facility] Administration Calcium Acetate 667 mg 07/24/20 17:00 07/25/20 17:18 Calcium Acetate 667 Mg Cap PO Not Given TIDWM [facility] Carvedilol 6.25 mg 07/24/20 22:00 07/25/20 23:03 Carvedilol 6.25 Mg Tab PO 6.25 mg BID [facility] Administration Doxazosin Mesylate 4 mg 07/24/20 22:00 07/25/20 23:07 Doxazosin 4 Mg Tab PO 4 mg BID [facility] Administration Fenofibrate 145 mg 07/25/20 10:00 07/25/20 10:05 Fenofibrate 145 Mg Tab PO 145 mg DAILY [facility] Administration Ferrous Sulfate 325 mg 07/24/20 22:00 07/25/20 23:02 Ferrous Sulfate 325 Mg Tab PO 325 mg BID [facility] Administration Fish Oil 1,000 mg 07/25/20 10:00 07/25/20 10:06 [place]-3 Fatty Acids/Fish Oil 1 Gram Cap PO 1,000 mg DAILY [facility] Administration Gabapentin 100 mg 07/24/20 22:00 07/26/20 05:53 Gabapentin 100 Mg Cap PO Not Given Q8HR [facility] Sodium Chloride 500 mls @ 50 mls/hr 07/24/20 08:15 Nacl 0.9% 500 Ml IV DIRECT [facility] Piperacillin Sod/Tazobactam Sod 2.25 gm in 50 mls @ 100 mls/hr 07/25/20 11:00 07/26/20 05:38 Zosyn/Ns 2.25 Gm/50ml IV Not Given Q8H [facility] Sodium Chloride 100 mls @ 999 mls/hr 07/25/20 14:30 Nacl 0.9% IV PETTY PRN Hypotension Losartan Potassium 100 mg 07/25/20 10:00 07/25/20 10:06 Losartan 50 Mg Tab PO 100 mg QDAY [facility] Administration Montelukast Sodium 10 mg 07/24/20 18:00 07/25/20 18:32 Montelukast 10 Mg Tab PO 10 mg QPM [facility] Administration Morphine Sulfate 2 mg 07/24/20 12:30 Morphine 2 Mg/1 Ml Inj IV Q6H PRN Pain , Severe (7-10) Multivitamins/Minerals 1 each 07/25/20 10:00 07/25/20 10:05 Multivitamins,Ther W-Minerals Tab PO 1 each QDAY [facility] Administration Ondansetron HCl 4 mg 07/24/20 12:00 Ondansetron 4 Mg/2 Ml Inj IV Q8H PRN Nausea And Vomiting Oxycodone/Acetaminophen 1 tab 07/24/20 12:30 07/25/20 00:30 Oxycodone /Acetaminophen 5-325mg Tab PO 1 tab Q6H PRN Administration Pain, Moderate (4-6) Pravastatin Sodium 80 mg 07/24/20 22:00 07/25/20 23:07 Pravastatin 80 Mg Tab PO 80 mg QHS [facility] Administration Sevelamer Carbonate 800 mg 07/24/20 17:00 07/25/20 17:18 Sevelamer Carbonate 800 Mg Tab PO Not Given TIDWM [facility] Sodium Chloride 10 ml 07/24/20 12:30 07/25/20 23:04 Sodium Chloride 0.9% 10 Ml Flush Syringe IV 10 ml BID [facility] Administration Sodium Chloride 10 ml 07/24/20 12:30 07/24/20 12:39 Sodium Chloride 0.9% 10 Ml Flush Syringe IV 10 ml PRN PRN Administration LINE FLUSH Trazodone HCl 50 mg 07/24/20 22:00 07/25/20 23:04 Trazodone 50 Mg Tab PO 50 mg QHS [facility] Administration
[2020-07-26] MEDS ORDERED: EPOETIN ALFA 2,000 UNIT/1 ML VIAL SUB-Q ONE (09:30)
[2020-07-26] MEDS: allopurinoL 100 MG TAB PO SCH (10:55)
[2020-07-26] MEDS: FERROUS SULFATE 325 MG TAB PO SCH ×2 (10:56→22:03)
[2020-07-26] MEDS: LOSARTAN 50 MG TAB PO SCH (10:57)
[2020-07-26] MEDS: DOXAZOSIN 4 MG TAB PO SCH (10:57)
[2020-07-26] MEDS: MULTIVITAMINS,THER W-MINERALS TAB PO SCH (10:57)
[2020-07-26] MEDS: carvediloL 6.25 MG TAB PO SCH ×2 (10:58→22:03)
[2020-07-26] MEDS: FOLIC ACID/VIT B COMP W-C 1 MG (RENAL CAPS) PO SCH (10:59)
--- NOTE | 2020-07-26 11:10 | Progress Note ---
Assessment and Plan Assessment and plan: 80 YO Male with ESRD on HD (M, W, F), HTN, DM, Vascular Dementia, Cerebral Atherosclerosis presents to ED for evaluation. Patient is confused and unable to provide detailed history at time of exam. Patient caregiver is at bedside during exam and interview and provides history. As per the patient's the patient has experienced increased weakness and confusion over the past 1 month with increased bedbound status. Patient was seen and evaluated by his vascular surgeon today and was found to have left foot cellulitis. Patient was instructed to seek further care at [facility]. Patient transported to [facility] via private vehicle for further care and evaluation of the aforementioned symptoms. The patient was seen and evaluated in the emergency department. All lab and imaging studies reviewed. Patient found to have end-stage renal disease, left foot cellulitis complicated by systemic inflammatory response syndrome, as well as peripheral vascular disease. Patient admitted to medical floor and initiated on IV antibiotic therapy. Nephrology team consulted in ED. Vascular surgery team consulted in ED. No further history is obtainable. No reports of fever, chills, chest pain, palpitation, productive cough, skin rash, syncope, trauma, recent ill contacts, or known exposure to COVID-19. Patient is unable to provide history but has a positive gag reflex and is able to protect his airway without difficulty at the time my evaluation. Prior admission on 07/05/2019 reviewed. All medication listed at time of admission has been reconciled. Advanced care planning conducted in ED. CT: Head: Negative for acute pathology. 3/3: Discussed with the IR, patient with new onset Altered mental status from the last time they saw the patient. Will begin work-up for possible underlying sepsis etiology or source unknown at this time. Will obtain ID consulted and Neurology. Continue abx, attempted to reach family. Concern for stroke is low but considering hx of vasculopathy will obtain Neurolo gy Will also obtain wound consultation. 3/4: Some improvement noted with initiation of antibiotics. We will continue current management patient continues on hemodialysis. Will await further vascular improvement as patient is beginning to show some improvement. Discussed with case management. Apparently the person that came with the patient is not the patient's but a caregiver H&P portion of this note has been corrected. Continue wound care and every 2 hours turns. (1) Sepsis Current Visit: Yes Status: Acute Plan to address problem: CBC, CMP, empiric IV antibiotic therapy x1 dose, repeat CBC in a.m. (2) End stage renal disease Current Visit: No Status: Acute Plan to address problem: Nephrology team consulted in ED, dialysis as per renal team. (3) Cellulitis/ left first digit gangrene Current Visit: Yes Status: Acute Qualifiers: Site of cellulitis of extremity: lower extremity Laterality: left Plan to address problem: CBC, CMP, IV antibiotic therapy, supportive care, wound care consulted. (4) Peripheral vascular disease Current Visit: Yes Status: Acute Plan to address problem: Vascular surgery consulted, continue medical management. (5) Acute encephalopathy Current Visit: No Status: Acute Plan to address problem: CT head, neuro check, seizure precautions, aspiration precautions, fall precautions. (6) Vascular dementia Current Visit: Yes Status: Acute Qualifiers: Dementia behavioral disturbance: without behavioral disturbance Qualified Code(s): F01.50 - Vascular dementia without behavioral disturbance Plan to address problem: Verbal prompting, verbal redirection, benzodiazepine therapy as clinically indicated. (7) Cerebral atherosclerosis Current Visit: Yes Status: Acute Plan to address problem: Antiplatelet therapy, risk factor reduction, supportive care. (8) DVT prophylaxis Current Visit: No Status: Acute Plan to address problem: SCD to bilateral lower extremities while in bed, prophylactic anticoagulation. (9) Advance care planning Current Visit: No Status: Acute Plan to address problem: Disease education conducted, care plan discussed, diagnosis discussed, patient is full code, patient knowledges understanding and agreement with care plan, +30 minutes. History Interval history: Patient seen and examined resting comfortably mental status improved this morning. He is asking for the boots and his legs to be removed. Still with poor understanding of his medical condition Hospitalist Physical - Physical exam Narrative exam: General appearance: Present: mild in no distress distress, cachectic - EENT Eyes: Present: PERRL ENT: hearing intact, clear oral mucosa - Neck Neck: Present: supple, normal ROM - Respiratory Respiratory effort: normal Respiratory: bilateral: CTA - Cardiovascular Heart Sounds: Present: S1 & S2. Absent: rub, click - Extremities Extremities: pulses symmetrical, No edema Peripheral Pulses: within normal limits - Abdominal General gastrointestinal: Present: soft, non-tender, non-distended, normal bowel sounds Male genitourinary: Present: normal - Integumentary Integumentary: Present:multiple ischemic necrotic lesions. , warm, dry - Musculoskeletal Musculoskeletal: generalized weakness - Psychiatric Psychiatric: Confused although improving - Neurologic Neurologic: CNII-XII intact, no focal deficits, moves all extremities, no gait normal - Constitutional Vitals: Temp Pulse Resp BP Pulse Ox 97.7 F 63 20 198/100 98 07/26/20 07:59 07/26/20 07:59 07/26/20 07:59 07/26/20 07:59 07/26/20 07:59 General appearance: Present: mild distress Results - Labs CBC & Chem 7: 07/25/20 05:42 07/25/20 05:42 Labs: Laboratory Last Values WBC 11.4 K/mm3 (4.5-11.0) H 07/25/20 05:42 RBC 3.02 M/mm3 (3.65-5.03) L 07/25/20 05:42 Hgb 9.5 gm/dl (11.8-15.2) L 07/25/20 05:42 Hct 29.8 % (35.5-45.6) L 07/25/20 05:42 MCV 99 fl (84-94) H 07/25/20 05:42 MCH 32 pg (28-32) 07/25/20 05:42 MCHC 32 % (32-34) 07/25/20 05:42 RDW 15.9 % (13.2-15.2) H 07/25/20 05:42 Plt Count 203 K/mm3 (140-440) 07/25/20 05:42 Lymph % (Auto) 9.0 % (13.4-35.0) L 07/25/20 05:42 [place] % (Auto) 6.9 % (0.0-7.3) 07/25/20 05:42 Eos % (Auto) 0.9 % (0.0-4.3) 07/25/20 05:42 Baso % (Auto) 0.6 % (0.0-1.8) 07/25/20 05:42 Lymph # (Auto) 1.0 K/mm3 (1.2-5.4) L 07/25/20 05:42 [place]ke # (Auto) 0.8 K/mm3 (0.0-0.8) 07/25/20 05:42 Eos # (Auto) 0.1 K/mm3 (0.0-0.4) 07/25/20 05:42 Baso # (Auto) 0.1 K/mm3 (0.0-0.1) 07/25/20 05:42 Seg Neutrophils % 82.6 % (40.0-70.0) H 07/25/20 05:42 Seg Neutrophils # 9.4 K/mm3 (1.8-7.7) H 07/25/20 05:42 PT 13.5 Sec. (12.2-14.9) 07/24/20 08:40 INR 1.04 (0.87-1.13) 07/24/20 08:40 APTT 45.0 Sec. (24.2-36.6) H 07/24/20 08:40 Sodium 142 mmol/L (137-145) 07/25/20 05:42 Potassium 5.1 mmol/L (3.6-5.0) H 07/25/20 05:42 Chloride 106.9 mmol/L (98-107) 07/25/20 05:42 Carbon Dioxide 25 mmol/L (22-30) 07/25/20 05:42 Anion Gap 15 mmol/L 07/25/20 05:42 BUN 53 mg/dL (9-20) H 07/25/20 05:42 Creatinine 6.1 mg/dL (0.8-1.3) H 07/25/20 05:42 Estimated GFR 9 ml/min 07/25/20 05:42 BUN/Creatinine Ratio 9 % 07/25/20 05:42 Glucose 122 mg/dL (75-100) H 07/25/20 05:42 POC Glucose 80 mg/dL (70-105) 07/26/20 07:59 Lactic Acid 0.90 mmol/L (0.7-2.0) 07/24/20 10:20 Calcium 9.0 mg/dL (8.4-10.2) 07/25/20 05:42 Nasal Screen MRSA (PCR) Negative (Negative) 07/24/20 Unknown Random Vancomycin 16.3 ug/mL (0-40.0) 07/26/20 05:25 Hepatitis A IgM Ab Non-reactive (NonReactive) 07/25/20 15:30 Hep Bs Antigen Non-reactive (Negative) 07/25/20 15:30 Hep B Core IgM Ab Non-reactive (NonReactive) 07/25/20 15:30 Hepatitis C Antibody Non-reactive (NonReactive) 07/25/20 15:30 Microbiology: Microbiology 07/24/20 10:20 Peripheral/Venous Blood Culture - Preliminary NO GROWTH AFTER 24 HOURS 07/24/20 10:20 Peripheral/Venous Blood Culture - Preliminary NO GROWTH AFTER 24 HOURS Jaimes/IV: Voiding Method Urinal Active Medications - Current Medications Current Medications: Generic Name Dose Route Start Last Admin Trade Name Freq PRN Reason Stop Dose Admin Acetaminophen 650 mg 07/24/20 12:34 Acetaminophen 325 Mg Tab PO Q4H PRN Pain MILD(1-3)/Fever >100.5/ANDRADE Albuterol 2.5 mg 07/24/20 12:30 Albuterol 2.5 Mg/3 Ml Nebu IH Q4HRT PRN Shortness Of Breath Allopurinol 100 mg 07/25/20 10:00 07/26/20 10:55 Allopurinol 100 Mg Tab PO 100 mg QDAY [facility] Administration Calcium Acetate 667 mg 07/24/20 17:00 07/25/20 17:18 Calcium Acetate 667 Mg Cap PO Not Given TIDWM [facility] Carvedilol 6.25 mg 07/24/20 22:00 07/26/20 10:58 Carvedilol 6.25 Mg Tab PO 6.25 mg BID [facility] Administration Doxazosin Mesylate 4 mg 07/26/20 10:00 07/26/20 10:57 Doxazosin 4 Mg Tab PO 4 mg DAILY [facility] Administration Epoetin Jose 20,000 unit 07/26/20 10:00 Epoetin Jose 20,000 Unit/1 Ml Inj SUB-Q Th [facility] Fenofibrate 145 mg 07/25/20 10:00 07/25/20 10:05 Fenofibrate 145 Mg Tab PO 145 mg DAILY [facility] Administration Ferrous Sulfate 325 mg 07/24/20 22:00 07/26/20 10:56 Ferrous Sulfate 325 Mg Tab PO 325 mg BID [facility] Administration Fish Oil 1,000 mg 07/25/20 10:00 07/25/20 10:06 [place]-3 Fatty Acids/Fish Oil 1 Gram Cap PO 1,000 mg DAILY [facility] Administration Gabapentin 100 mg 07/24/20 22:00 07/26/20 05:53 Gabapentin 100 Mg Cap PO Not Given Q8HR [facility] Hydralazine HCl 25 mg 07/26/20 14:00 Hydralazine 25 Mg Tab PO Q8HR [facility] Sodium Chloride 500 mls @ 50 mls/hr 07/24/20 08:15 Nacl 0.9% 500 Ml IV DIRECT [facility] Piperacillin Sod/Tazobactam Sod 2.25 gm in 50 mls @ 100 mls/hr 07/25/20 11:00 07/26/20 05:38 Zosyn/Ns 2.25 Gm/50ml IV Not Given Q8H [facility] Sodium Chloride 100 mls @ 999 mls/hr 07/25/20 14:30 Nacl 0.9% IV PETTY PRN Hypotension Dextrose/Sodium Chloride 1,000 mls @ 75 mls/hr 07/26/20 10:00 D5ns IV DIRECT [facility] Losartan Potassium 100 mg 07/25/20 10:00 07/26/20 10:57 Losartan 50 Mg Tab PO 100 mg QDAY [facility] Administration Montelukast Sodium 10 mg 07/24/20 18:00 07/25/20 18:32 Montelukast 10 Mg Tab PO 10 mg QPM [facility] Administration Morphine Sulfate 2 mg 07/24/20 12:30 Morphine 2 Mg/1 Ml Inj IV Q6H PRN Pain , Severe (7-10) Multivit/Ca Carb/B Cmplx/FA/Prenat 1 cap 07/26/20 10:00 07/26/20 10:59 Folic Acid/Vit B Comp W-C 1 Mg (Renal Caps) PO 1 cap QDAY [facility] Administration Multivitamins/Minerals 1 each 07/25/20 10:00 07/26/20 10:57 Multivitamins,Ther W-Minerals Tab PO 1 each QDAY [facility] Administration Ondansetron HCl 4 mg 07/24/20 12:00 Ondansetron 4 Mg/2 Ml Inj IV Q8H PRN Nausea And Vomiting Oxycodone/Acetaminophen 1 tab 07/24/20 12:30 07/25/20 00:30 Oxycodone /Acetaminophen 5-325mg Tab PO 1 tab Q6H PRN Administration Pain, Moderate (4-6) Pravastatin Sodium 80 mg 07/24/20 22:00 07/25/20 23:07 Pravastatin 80 Mg Tab PO 80 mg QHS [facility] Administration Sevelamer Carbonate 800 mg 07/24/20 17:00 07/25/20 17:18 Sevelamer Carbonate 800 Mg Tab PO Not Given TIDWM [facility] Sodium Chloride 10 ml 07/24/20 12:30 07/25/20 23:04 Sodium Chloride 0.9% 10 Ml Flush Syringe IV 10 ml BID [facility] Administration Sodium Chloride 10 ml 07/24/20 12:30 07/24/20 12:39 Sodium Chloride 0.9% 10 Ml Flush Syringe IV 10 ml PRN PRN Administration LINE FLUSH Trazodone HCl 50 mg 07/24/20 22:00 07/25/20 23:04 Trazodone 50 Mg Tab PO 50 mg QHS [facility] Administration Nutrition/Malnutrition Assess - Dietary Evaluation Nutrition/Malnutrition Findings: Nutrition Notes Start: 07/25/20 13:43 Freq: Status: Active Protocol: Document 07/25/20 13:43 AT (Rec: 07/25/20 14:13 AT [id number]) Co-Sign 07/25/20 13:43 NHALL Nutrition Notes Need for Assessment generated from: ruling machine feeder Initial or Follow up Assessment Current Diagnosis CKD (stage V CKD),Decubitus( Pressure Ulcer),Diabetes Other Pertinent Diagnosis on HD, Cellulitis, Gangrene, Cerebral Atherosclerosis, SIRS Current Diet Cardiac Diet Labs/Tests K 5.1 BUN 53 Cr 6.1 BG 122 Pertinent Medications Ferrous Sulfate Phoslo Renvela NS at 50 mL/hr Height 5 ft 9 in Weight 72.57 kg [place] Body Weight (kg) 72.72 BMI 23.6 Weight change and time frame 19.6% weight loss x 3 weeks ( per chart) Weight Status Appropriate Subjective/Other Information Screen for skin risk. Pt has multiple pressure ulcers and a Calvin Score of 15. Was unable to observe pt due to business at each visit. Could not reach RN by phone x2 for information on intakes. Will follow up tomorrow for physical signs of malnutrition and nutritional risk. Burn Absent Trauma Absent Minimum of two criteria No #2 Nutrition Diagnosis Increased nutrient needs ( specify in comment below) Comments: protein Etiology need for wound healing As Evidenced by Signs and Symptoms two Stage I pressure ulcers and skin breakdown #1 Nutrition Diagnosis Predicted suboptimal energy intake Etiology advanced age As Evidenced by Signs and Symptoms 19.6% weight loss in 3 weeks Is patient on ventilator? No Is Patient Ambulatory and/or Out of Bed No REE-([place]-confined to bed) 1402.348 Calculation Used for Recommendations [facility] Additional Notes PRO needs: >87g (>1.2 g/kg) Fluid needs: Urine output + 1000 mL or per MD Nutrition Intervention Change Diet Order: Continue Cardiac Diet Add Supplement/Snack (indicate name/kcal Nepro daily /protein ) Provides kCal: 425 Provides Protein (gm) 19 Goal #1 Meet at least 75% of estimated energy and protein needs via diet and ONS Goal #2 Wound healing Anticipated Discharge Needs: Cardiac/Consistent CHO Diet Follow-Up By: 07/26/20 Additional Comments F/U intakes, ONS tolerance
[2020-07-26] MEDS: CALCIUM ACETATE 667 MG CAP PO SCH ×3 (12:01→17:47)
[2020-07-26] MEDS: SEVELAMER CARBONATE 800 MG TAB PO SCH ×3 (12:01→17:45)
[2020-07-26] MEDS: OMEGA-3 FATTY ACIDS/FISH OIL 1 GRAM CAP PO SCH (12:03)
[2020-07-26] MEDS: FENOFIBRATE 145 MG TAB PO SCH (12:04)
[2020-07-26] MEDS: EPOETIN ALFA 20,000 UNIT/1 ML INJ SUB-Q SCH (14:07)
--- NOTE | 2020-07-26 14:11 | Event Note ---
Date: 07/26/20 Off the floor. Continue zosyn and vancomycin. Will follow up in AM.
--- NOTE | 2020-07-26 14:45 | Magnetic Resonance Report ---
MRI BRAIN WITHOUT CONTRAST INDICATION / CLINICAL INFORMATION: Acute Encephalopathy. TECHNIQUE: Multisequence, multiplanar images were obtained. COMPARISON: CT head dated 07/24/2020 FINDINGS: CEREBRAL and CEREBELLAR HEMISPHERES: No evidence of mass or mass effect. No midline shift. No acute hemorrhage. No diffusion restriction to suggest acute infarct. No extra-axial fluid collection. M oderate diffuse cortical volume loss and moderate chronic microvascular ischemic changes in the white matter are noted. No chronic infarct. VENTRICLES: Normal in size and configuration for age. VISUALIZED ORBITS: No significant abnormality. VISUALIZED PARANASAL SINUSES: No significant abnormality. ADDITIONAL FINDINGS: None. IMPRESSION: No acute intracranial abnormality is appreciated. Advanced volume loss and chronic white matter arechiga es. Signer Name: Saman Baeza Jr, MD Signed: 07/26/2020 2:40 PM Workstation Name: [id number]
[2020-07-26] MEDS: hydrALAZINE 25 MG TAB PO SCH ×2 (17:46→22:03)
[2020-07-26] MEDS: MONTELUKAST 10 MG TAB PO SCH (17:46)
[2020-07-26] MEDS: traZODone 50 MG TAB PO SCH (22:03)
[2020-07-26] MEDS: PRAVASTATIN 80 MG TAB PO SCH (22:03)
[2020-07-27] MEDS: PIPERACIL-TAZO 2.25 GM/50 ML 2.25 GM/50 ML BAG IV SCH ×3 (02:55→22:28)
[2020-07-27] MEDS: hydrALAZINE 25 MG TAB PO SCH ×3 (05:37→22:28)
[2020-07-27] MEDS: GABAPENTIN 100 MG CAP PO SCH ×3 (05:37→22:26)
[2020-07-27 06:00] LABS: Hematocrit 29.8 % (35.5-45.6); Mean Corpuscular HGB Conc 34 % (32-34); Mean Corpuscular Volume 95 fl (84-94); Platelet Count 197 K/mm3 (140-440); Red Blood Count 3.16 M/mm3 (3.65-5.03); Red Cell Distribution Width 14.7 % (13.2-15.2)
[2020-07-27 06:09] LABS: Calcium 8.6 mg/dL (8.4-10.2)
[2020-07-27] MEDS ORDERED: DEXTROSE 50% IN WATER (25GM) 50 ML SYRINGE IV SCH (07:30)
[2020-07-27] MEDS ORDERED: DEXTROSE 50% IN WATER (25GM) 50 ML SYRINGE IV ONE (07:46)
[2020-07-27] MEDS: CALCIUM ACETATE 667 MG CAP PO SCH ×3 (08:00→17:05)
[2020-07-27] MEDS: SEVELAMER CARBONATE 800 MG TAB PO SCH ×3 (08:00→17:05)
[2020-07-27] MEDS: D5W/0.9% NACL 1,000 ML IV SCH (08:07)
--- NOTE | 2020-07-27 08:35 | Progress Note ---
Subjective Interval history: Patient was seen today for follow-up of multiple renal related issues patient was also seen in supervised and hemodialysis which he seems to be tolerating well Catheter seems to be working well Interdisciplinary notes that also reviewed Events of 24 hours vitals labs intake output medications were reviewed Past medical history: Reviewed Family history: Reviewed Social history: Reviewed Allergies: Reviewed Physical examination: Vitals: Reviewed HEENT: No pallor or icterus oral mucosa moist Neck: Supple no JVD no thyromegaly Chest: Bilateral clear to auscultation anteriorly catheter site unremarkable Heart: Regular rate and rhythm S1-S2 heard no S3-S4 Abdomen: Soft nontender no voluntary guarding rigidity rebound Extremity: Dry skin less than 1+ peripheral edema Psychiatric: No evidence of agitation and aggression noted Dermatology: No petechial rashes Labs and x-rays: Reviewed from today Assessment and plan #End-stage renal disease: Continue with hemodialysis treatment Thursday and Thursday dialysis access is a central venous catheter also seen and supervised and hemodialysis tolerating treatment well no issues discussed with dialysis nurse #Hypertension, goal blood pressure around 140/80 continue to monitor and adjust medications Continue with hydralazine for now #Diet and nutrition: Patient needs to be in high protein diet, #Volume and electrolyte mild hyperkalemia 5.1 overall stable, will need ongoing monitoring #Bone mineral disorder: Check phosphorus and PTH level periodically, outpatient labs satisfactory #Multiple other complex comorbidities currently being managed by primary team #Go peripheral arterial disease, worsening gangrene, will discuss the care plan with vascular #Due to end-stage renal disease and multiple comorbidities prognosis remains guarded long-term appears to be guarded to poor Patient was adequately counseled and educated regarding all the renal related issues Laboratory studies, have been explained to the patient All questions were answered and simple Swedish, care plan was discussed with dialysis nurse Time spent in patient care 32 minutes We'll continue to follow and make recommendation for renal standpoint Objective - Vital Signs Vital signs: Vital Signs - 12hr 07/27/20 07/27/20 07/27/20 00:31 04:00 07:00 Temperature 98.3 F 98.1 F 98.2 F Pulse Rate 65 57 L 56 L Respiratory 18 18 18 Rate Blood Pressure 157/46 Blood Pressure 139/61 91/45 [Right] O2 Sat by Pulse 100 100 93 Oximetry - Lab 07/27/20 05:21 07/27/20 05:21 Most recent lab results Calcium 8.6 mg/dL (8.4-10.2) 07/27/20 05:21 Medications & Allergies - Medications Allergies/Adverse Reactions: Allergies No Known Allergies Allergy (Verified 05/01/15 08:52) Home Medications: Home Medications Medication Instructions Recorded Confirmed Last Taken Type Calcium Acetate [Phoslo] 667 mg PO TID 07/24/20 07/24/20 Unknown History Fenofibrate 160 mg PO QDAY 07/24/20 07/24/20 Unknown History Gabapentin [Neurontin] 100 mg PO Q8HR 07/24/20 07/24/20 Unknown History HYDROcodone/ACETAMINOPHEN 1 each PO Q8HR PRN 07/24/20 07/24/20 Unknown History [Hydrocodone-Acetamin 5-300 mg] Losartan Potassium 100 mg PO QDAY 07/24/20 07/24/20 Unknown History Montelukast [Singulair] 10 mg PO QPM 07/24/20 07/24/20 Unknown History Sevelamer Carbonate [Renvela] 800 mg PO TIDWM 07/24/20 07/24/20 Unknown History Simvastatin 40 mg PO QDAY 07/24/20 07/24/20 Unknown History allopurinoL [Zyloprim] 100 mg PO QDAY 07/24/20 07/24/20 Unknown History traZODone [Desyrel] 50 mg PO QHS 07/24/20 07/24/20 Unknown History traZODone [Desyrel] 50 mg PO QHS 07/24/20 07/24/20 Unknown History Active Medications: Generic Name Dose Route Start Last Admin Trade Name Freq PRN Reason Stop Dose Admin Acetaminophen 650 mg 07/24/20 12:34 Acetaminophen 325 Mg Tab PO Q4H PRN Pain MILD(1-3)/Fever >100.5/ANDRADE Albuterol 2.5 mg 07/24/20 12:30 Albuterol 2.5 Mg/3 Ml Nebu IH Q4HRT PRN Shortness Of Breath Allopurinol 100 mg 07/25/20 10:00 07/26/20 10:55 Allopurinol 100 Mg Tab PO 100 mg QDAY [facility] Administration Calcium Acetate 667 mg 07/24/20 17:00 07/26/20 17:47 Calcium Acetate 667 Mg Cap PO Not Given TIDWM [facility] Carvedilol 6.25 mg 07/24/20 22:00 07/26/20 22:03 Carvedilol 6.25 Mg Tab PO 6.25 mg BID [facility] Administration Dextrose 25 ml 07/27/20 07:30 07/27/20 07:57 Dextrose 50% In Water (25gm) 50 Ml Syringe IV 07/27/20 09:00 25 ml ONCE [facility] Administration Protocol Doxazosin Mesylate 4 mg 07/26/20 10:00 07/26/20 10:57 Doxazosin 4 Mg Tab PO 4 mg DAILY [facility] Administration Epoetin Jose 20,000 unit 07/26/20 10:00 07/26/20 14:07 Epoetin Jose 20,000 Unit/1 Ml Inj SUB-Q 20,000 unit Th [facility] Administration Fenofibrate 145 mg 07/25/20 10:00 07/26/20 12:04 Fenofibrate 145 Mg Tab PO Not Given DAILY [facility] Ferrous Sulfate 325 mg 07/24/20 22:00 07/26/20 22:03 Ferrous Sulfate 325 Mg Tab PO 325 mg BID [facility] Administration Fish Oil 1,000 mg 07/25/20 10:00 07/26/20 12:03 [place]-3 Fatty Acids/Fish Oil 1 Gram Cap PO 1,000 mg DAILY [facility] Administration Gabapentin 100 mg 07/24/20 22:00 07/27/20 05:37 Gabapentin 100 Mg Cap PO 100 mg Q8HR [facility] Administration Hydralazine HCl 25 mg 07/26/20 14:00 07/27/20 05:37 Hydralazine 25 Mg Tab PO 25 mg Q8HR [facility] Administration Sodium Chloride 500 mls @ 50 mls/hr 07/24/20 08:15 Nacl 0.9% 500 Ml IV DIRECT [facility] Piperacillin Sod/Tazobactam Sod 2.25 gm in 50 mls @ 100 mls/hr 07/25/20 11:00 07/27/20 02:55 Zosyn/Ns 2.25 Gm/50ml IV 100 mls/hr Q8H [facility] Administration Sodium Chloride 100 mls @ 999 mls/hr 07/25/20 14:30 Nacl 0.9% IV PETTY PRN Hypotension Dextrose/Sodium Chloride 1,000 mls @ 75 mls/hr 07/26/20 10:00 07/27/20 08:07 D5ns IV 75 mls/hr DIRECT [facility] Administration Losartan Potassium 100 mg 07/25/20 10:00 07/26/20 10:57 Losartan 50 Mg Tab PO 100 mg QDAY [facility] Administration Montelukast Sodium 10 mg 07/24/20 18:00 07/26/20 17:46 Montelukast 10 Mg Tab PO 10 mg QPM [facility] Administration Morphine Sulfate 2 mg 07/24/20 12:30 Morphine 2 Mg/1 Ml Inj IV Q6H PRN Pain , Severe (7-10) Multivit/Ca Carb/B Cmplx/FA/Prenat 1 cap 07/26/20 10:00 07/26/20 10:59 Folic Acid/Vit B Comp W-C 1 Mg (Renal Caps) PO 1 cap QDAY [facility] Administration Multivitamins/Minerals 1 each 07/25/20 10:00 07/26/20 10:57 Multivitamins,Ther W-Minerals Tab PO 1 each QDAY [facility] Administration Ondansetron HCl 4 mg 07/24/20 12:00 Ondansetron 4 Mg/2 Ml Inj IV Q8H PRN Nausea And Vomiting Oxycodone/Acetaminophen 1 tab 07/24/20 12:30 07/25/20 00:30 Oxycodone /Acetaminophen 5-325mg Tab PO 1 tab Q6H PRN Administration Pain, Moderate (4-6) Pravastatin Sodium 80 mg 07/24/20 22:00 07/26/20 22:03 Pravastatin 80 Mg Tab PO 80 mg QHS [facility] Administration Sevelamer Carbonate 800 mg 07/24/20 17:00 07/26/20 17:45 Sevelamer Carbonate 800 Mg Tab PO 800 mg TIDWM [facility] Administration Sodium Chloride 10 ml 07/24/20 12:30 07/26/20 22:03 Sodium Chloride 0.9% 10 Ml Flush Syringe IV 10 ml BID [facility] Administration Sodium Chloride 10 ml 07/24/20 12:30 07/24/20 12:39 Sodium Chloride 0.9% 10 Ml Flush Syringe IV 10 ml PRN PRN Administration LINE FLUSH Trazodone HCl 50 mg 07/24/20 22:00 07/26/20 22:03 Trazodone 50 Mg Tab PO 50 mg QHS [facility] Administration
--- NOTE | 2020-07-27 09:18 | Progress Note ---
Assessment and Plan Assessment and plan: 80 YO Male with ESRD on HD (M, W, F), HTN, DM, Vascular Dementia, Cerebral Atherosclerosis presents to ED for evaluation. Patient is confused and unable to provide detailed history at time of exam. Patient caregiver is at bedside during exam and interview and provides history. As per the patient's the patient has experienced increased weakness and confusion over the past 1 month with increased bedbound status. Patient was seen and evaluated by his vascular surgeon today and was found to have left foot cellulitis. Patient was instructed to seek further care at [facility]. Patient transported to [facility] via private vehicle for further care and evaluation of the aforementioned symptoms. The patient was seen and evaluated in the emergency department. All lab and imaging studies reviewed. Patient found to have end-stage renal disease, left foot cellulitis complicated by systemic inflammatory response syndrome, as well as peripheral vascular disease. Patient admitted to medical floor and initiated on IV antibiotic therapy. Nephrology team consulted in ED. Vascular surgery team consulted in ED. No further history is obtainable. No reports of fever, chills, chest pain, palpitation, productive cough, skin rash, syncope, trauma, recent ill contacts, or known exposure to COVID-19. Patient is unable to provide history but has a positive gag reflex and is able to protect his airway without difficulty at the time my evaluation. Prior admission on 07/05/2019 reviewed. All medication listed at time of admission has been reconciled. Advanced care planning conducted in ED. CT: Head: Negative for acute pathology. 33: Discussed with the IR, patient with new onset Altered mental status from the last time they saw the patient. Will begin work-up for possible underlying sepsis etiology or source unknown at this time. Will obtain ID consulted and Neurology. Continue abx, attempted to reach family. Concern for stroke is low but considering hx of vasculopathy will obtain Neurolo gy Will also obtain wound consultation. 3/4: Some improvement noted with initiation of antibiotics. We will continue current management patient continues on hemodialysis. Will await further vascular improvement as patient is beginning to show some improvement. Discussed with case management. Apparently the person that came with the patient is not the patient's but a caregiver H&P portion of this note has been corrected. Continue wound care and every 2 hours turns. 5: Continue current management plan. Vascular to re-evaluate. Continue abx. MRI with no acute pathology. Agree with the D5 as patient still has some intermittent confusion. Continue to monitor. Speech evaluation for swallow management. (1) Sepsis Current Visit: Yes Status: Acute Plan to address problem: CBC, CMP, empiric IV antibiotic therapy x1 dose, repeat CBC in a.m. (2) End stage renal disease Current Visit: No Status: Acute Plan to address problem: Nephrology team consulted in ED, dialysis as per renal team. (3) Cellulitis/ left first digit gangrene Current Visit: Yes Status: Acute Qualifiers: Site of cellulitis of extremity: lower extremity Laterality: left Plan to address problem: CBC, CMP, IV antibiotic therapy, supportive care, wound care consulted. (4) Peripheral vascular disease Current Visit: Yes Status: Acute Plan to address problem: Vascular surgery consulted, continue medical management. (5) Acute metabolic encephalopathy Current Visit: No Status: Acute Plan to address problem: CT head, neuro check, seizure precautions, aspiration precautions, fall precautions. (6) Vascular dementia Current Visit: Yes Status: Acute Qualifiers: Dementia behavioral disturbance: without behavioral disturbance Qualified Code(s): F01.50 - Vascular dementia without behavioral disturbance Plan to address problem: Verbal prompting, verbal redirection, benzodiazepine therapy as clinically indicated. (7) Cerebral atherosclerosis Current Visit: Yes Status: Acute Plan to address problem: Antiplatelet therapy, risk factor reduction, supportive care. (8) DVT prophylaxis Current Visit: No Status: Acute Plan to address problem: SCD to bilateral lower extremities while in bed, prophylactic anticoagulation. (9) Advance care planning Current Visit: No Status: Acute Plan to address problem: Disease education conducted, care plan discussed, diagnosis discussed, patient is full code, patient knowledges understanding and agreement with care plan, +30 minutes. History Interval history: Patient seen and examined resting comfortably mental status improved this morning. Overnight patient was noted to be hypoglycemic. D5 was started. Hospitalist Physical - Physical exam Narrative exam: General appearance: Present: mild in no distress distress, cachectic - EENT Eyes: Present: PERRL ENT: hearing intact, clear oral mucosa - Neck Neck: Present: supple, normal ROM - Respiratory Respiratory effort: normal Respiratory: bilateral: CTA - Cardiovascular Heart Sounds: Present: S1 & S2. Absent: rub, click - Extremities Extremities: pulses symmetrical, No edema Peripheral Pulses: within normal limits - Abdominal General gastrointestinal: Present: soft, non-tender, non-distended, normal bowel sounds Male genitourinary: Present: normal - Integumentary Integumentary: Present:multiple ischemic necrotic lesions. , warm, dry - Musculoskeletal Musculoskeletal: generalized weakness - Psychiatric Psychiatric: improving although still with some intermittent confusion - Neurologic Neurologic: CNII-XII intact, no focal deficits, moves all extremities, no gait normal - Constitutional Vitals: Temp Pulse Resp BP Pulse Ox 98.2 F 56 L 18 91/45 93 07/27/20 07:00 07/27/20 07:00 07/27/20 07:00 07/27/20 07:00 07/27/20 07:00 General appearance: Present: mild distress Results - Labs CBC & Chem 7: 07/27/20 05:21 07/27/20 05:21 Labs: Laboratory Last Values WBC 11.5 K/mm3 (4.5-11.0) H 07/27/20 05:21 RBC 3.16 M/mm3 (3.65-5.03) L 07/27/20 05:21 Hgb 10.0 gm/dl (11.8-15.2) L 07/27/20 05:21 Hct 29.8 % (35.5-45.6) L 07/27/20 05:21 MCV 95 fl (84-94) H 07/27/20 05:21 MCH 32 pg (28-32) 07/27/20 05:21 MCHC 34 % (32-34) 07/27/20 05:21 RDW 14.7 % (13.2-15.2) 07/27/20 05:21 Plt Count 197 K/mm3 (140-440) 07/27/20 05:21 Lymph % (Auto) 9.0 % (13.4-35.0) L 07/25/20 05:42 [place] % (Auto) 6.9 % (0.0-7.3) 07/25/20 05:42 Eos % (Auto) 0.9 % (0.0-4.3) 07/25/20 05:42 Baso % (Auto) 0.6 % (0.0-1.8) 07/25/20 05:42 Lymph # (Auto) 1.0 K/mm3 (1.2-5.4) L 07/25/20 05:42 [place] # (Auto) 0.8 K/mm3 (0.0-0.8) 07/25/20 05:42 Eos # (Auto) 0.1 K/mm3 (0.0-0.4) 07/25/20 05:42 Baso # (Auto) 0.1 K/mm3 (0.0-0.1) 07/25/20 05:42 Seg Neutrophils % 82.6 % (40.0-70.0) H 07/25/20 05:42 Seg Neutrophils # 9.4 K/mm3 (1.8-7.7) H 07/25/20 05:42 PT 13.5 Sec. (12.2-14.9) 07/24/20 08:40 INR 1.04 (0.87-1.13) 07/24/20 08:40 APTT 45.0 Sec. (24.2-36.6) H 07/24/20 08:40 Sodium 138 mmol/L (137-145) 07/27/20 05:21 Potassium 4.5 mmol/L (3.6-5.0) 07/27/20 05:21 Chloride 100.9 mmol/L (98-107) 07/27/20 05:21 Carbon Dioxide 27 mmol/L (22-30) 07/27/20 05:21 Anion Gap 15 mmol/L 07/27/20 05:21 BUN 45 mg/dL (9-20) H 07/27/20 05:21 Creatinine 5.6 mg/dL (0.8-1.3) H 07/27/20 05:21 Estimated GFR 10 ml/min 07/27/20 05:21 BUN/Creatinine Ratio 8 % 07/27/20 05:21 Glucose 82 mg/dL (75-100) 07/27/20 05:21 POC Glucose 73 mg/dL (70-105) 07/26/20 21:34 Lactic Acid 0.90 mmol/L (0.7-2.0) 07/24/20 10:20 Calcium 8.6 mg/dL (8.4-10.2) 07/27/20 05:21 Nasal Screen MRSA (PCR) Negative (Negative) 07/24/20 Unknown Random Vancomycin 16.3 ug/mL (0-40.0) 07/26/20 05:25 Hepatitis A IgM Ab Non-reactive (NonReactive) 07/25/20 15:30 Hep Bs Antigen Non-reactive (Negative) 07/25/20 15:30 Hep B Core IgM Ab Non-reactive (NonReactive) 07/25/20 15:30 Hepatitis C Antibody Non-reactive (NonReactive) 07/25/20 15:30 Microbiology: Microbiology 07/24/20 10:20 Peripheral/Venous Blood Culture - Preliminary NO GROWTH AFTER 48 HOURS 07/24/20 10:20 Peripheral/Venous Blood Culture - Preliminary NO GROWTH AFTER 48 HOURS Jaimes/IV: Voiding Method Incontinent Active Medications - Current Medications Current Medications: Generic Name Dose Route Start Last Admin Trade Name Freq PRN Reason Stop Dose Admin Acetaminophen 650 mg 07/24/20 12:34 Acetaminophen 325 Mg Tab PO Q4H PRN Pain MILD(1-3)/Fever >100.5/ANDRADE Albuterol 2.5 mg 07/24/20 12:30 Albuterol 2.5 Mg/3 Ml Nebu IH Q4HRT PRN Shortness Of Breath Allopurinol 100 mg 07/25/20 10:00 07/26/20 10:55 Allopurinol 100 Mg Tab PO 100 mg QDAY [facility] Administration Calcium Acetate 667 mg 07/24/20 17:00 07/26/20 17:47 Calcium Acetate 667 Mg Cap PO Not Given TIDWM [facility] Carvedilol 6.25 mg 07/24/20 22:00 07/26/20 22:03 Carvedilol 6.25 Mg Tab PO 6.25 mg BID SADAF Administration Doxazosin Mesylate 4 mg 07/26/20 10:00 07/26/20 10:57 Doxazosin 4 Mg Tab PO 4 mg DAILY [facility] Administration Epoetin Jose 20,000 unit 07/26/20 10:00 07/26/20 14:07 Epoetin Jose 20,000 Unit/1 Ml Inj SUB-Q 20,000 unit Th SADAF Administration Fenofibrate 145 mg 07/25/20 10:00 07/26/20 12:04 Fenofibrate 145 Mg Tab PO Not Given DAILY SADAF Ferrous Sulfate 325 mg 07/24/20 22:00 07/26/20 22:03 Ferrous Sulfate 325 Mg Tab PO 325 mg BID SADAF Administration Fish Oil 1,000 mg 07/25/20 10:00 07/26/20 12:03 [place]-3 Fatty Acids/Fish Oil 1 Gram Cap PO 1,000 mg DAILY SADAF Administration Gabapentin 100 mg 07/24/20 22:00 07/27/20 05:37 Gabapentin 100 Mg Cap PO 100 mg Q8HR SADAF Administration Hydralazine HCl 25 mg 07/26/20 14:00 07/27/20 05:37 Hydralazine 25 Mg Tab PO 25 mg Q8HR SADAF Administration Sodium Chloride 500 mls @ 50 mls/hr 07/24/20 08:15 Nacl 0.9% 500 Ml IV DIRECT SADAF Piperacillin Sod/Tazobactam Sod 2.25 gm in 50 mls @ 100 mls/hr 07/25/20 11:00 07/27/20 02:55 Zosyn/Ns 2.25 Gm/50ml IV 100 mls/hr Q8H SADAF Administration Sodium Chloride 100 mls @ 999 mls/hr 07/25/20 14:30 Nacl 0.9% IV PETTY PRN Hypotension Dextrose/Sodium Chloride 1,000 mls @ 75 mls/hr 07/26/20 10:00 07/27/20 08:07 D5ns IV 75 mls/hr DIRECT SADAF Administration Losartan Potassium 100 mg 07/25/20 10:00 07/26/20 10:57 Losartan 50 Mg Tab PO 100 mg QDAY [facility] Administration Montelukast Sodium 10 mg 07/24/20 18:00 07/26/20 17:46 Montelukast 10 Mg Tab PO 10 mg QPM [facility]ADAF Administration Morphine Sulfate 2 mg 07/24/20 12:30 Morphine 2 Mg/1 Ml Inj IV Q6H PRN Pain , Severe (7-10) Multivit/Ca Carb/B Cmplx/FA/Prenat 1 cap 07/26/20 10:00 07/26/20 10:59 Folic Acid/Vit B Comp W-C 1 Mg (Renal Caps) PO 1 cap QDAY SAD[facility] Administration Multivitamins/Minerals 1 each 07/25/20 10:00 07/26/20 10:57 Multivitamins,Ther W-Minerals Tab PO 1 each QDAY [facility] Administration Ondansetron HCl 4 mg 07/24/20 12:00 Ondansetron 4 Mg/2 Ml Inj IV Q8H PRN Nausea And Vomiting Oxycodone/Acetaminophen 1 tab 07/24/20 12:30 07/25/20 00:30 Oxycodone /Acetaminophen 5-325mg Tab PO 1 tab Q6H PRN Administration Pain, Moderate (4-6) Pravastatin Sodium 80 mg 07/24/20 22:00 07/26/20 22:03 Pravastatin 80 Mg Tab PO 80 mg QHS [facility]AD[facility] Administration Sevelamer Carbonate 800 mg 07/24/20 17:00 07/26/20 17:45 Sevelamer Carbonate 800 Mg Tab PO 800 mg TIDWM [facility] Administration Sodium Chloride 10 ml 07/24/20 12:30 07/26/20 22:03 Sodium Chloride 0.9% 10 Ml Flush Syringe IV 10 ml BID SADAF Administration Sodium Chloride 10 ml 07/24/20 12:30 07/24/20 12:39 Sodium Chloride 0.9% 10 Ml Flush Syringe IV 10 ml PRN PRN Administration LINE FLUSH Trazodone HCl 50 mg 07/24/20 22:00 07/26/20 22:03 Trazodone 50 Mg Tab PO 50 mg QHS SADAF Administration Nutrition/Malnutrition Assess - Dietary Evaluation Nutrition/Malnutrition Findings: Nutrition Notes Start: 07/25/20 13:43 Freq: Status: Active Protocol: Document 07/26/20 13:46 AL (Rec: 07/26/20 13:54 AL [id number]) Co-Sign 07/26/20 13:46 LP Nutrition Notes Initial or Follow up Reassessment Current Diagnosis CKD (stage V CKD),Decubitus( Pressure Ulcer),Diabetes Other Pertinent Diagnosis on HD, Cellulitis, Gangrene, Cerebral Atherosclerosis, SIRS Current Diet Cardiac Diet Labs/Tests POC BG 65 Pertinent Medications Reviewed Height 5 ft 9 in Weight 72.57 kg [place] Body Weight (kg) 72.72 BMI 23.6 Weight Status Appropriate Subjective/Other Information FU for intakes and ONS tolerance. Pt reports appetite is good and food is good. Pt has AMS. Breakfast and Nepro supplement untouched on the table. According to 3/3 ADL, pt consumed 50% of breakfast, lunch, and dinner) Percent of energy/protein needs met: 57%/49% Burn Absent Trauma Absent Minimum of two criteria No #3 Nutrition Diagnosis Inadequate energy intake Etiology AMS advanced age As Evidenced by Signs and Symptoms pt meets 57%/49% of estimated energy/protein needs #2 Nutrition Diagnosis Increased nutrient needs ( specify in comment below) Comments: protein Diagnosis Progress(for reassessment Continues documentation) #1 Nutrition Diagnosis Predicted suboptimal energy intake Etiology AMS advanced age As Evidenced by Signs and Symptoms pt meets 57%/49% of estimated energy/protein needs Diagnosis Progress(for reassessment Resolved documentation) Is patient on ventilator? No Is Patient Ambulatory and/or Out of Bed No REE-([facility]-confined to bed) 1128.424 Calculation Used for Recommendations [facility] Additional Notes PRO needs: >87g (>1.2 g/kg) Fluid needs: Urine output + 1000 mL or per MD Nutrition Intervention Change Diet Order: Continue Cardiac Diet Add Supplement/Snack (indicate name/kcal Nepro daily /protein ) Provides kCal: 425 Provides Protein (gm) 19 Goal #1 Meet at least 75% of estimated energy and protein needs via diet and ONS Goal #2 Wound healing Anticipated Discharge Needs: Renal/Consistent CHO Diet Follow-Up By: 07/30/20 Additional Comments F/U intakes, ONS tolerance
[2020-07-27] MEDS: DOXAZOSIN 4 MG TAB PO SCH (10:18)
[2020-07-27] MEDS: LOSARTAN 50 MG TAB PO SCH (10:18)
[2020-07-27] MEDS: FERROUS SULFATE 325 MG TAB PO SCH ×2 (10:18→22:27)
[2020-07-27] MEDS: carvediloL 6.25 MG TAB PO SCH ×2 (10:18→22:26)
[2020-07-27] MEDS: allopurinoL 100 MG TAB PO SCH (10:19)
[2020-07-27] MEDS: FOLIC ACID/VIT B COMP W-C 1 MG (RENAL CAPS) PO SCH (10:19)
[2020-07-27] MEDS: MULTIVITAMINS,THER W-MINERALS TAB PO SCH (10:19)
[2020-07-27] MEDS: OMEGA-3 FATTY ACIDS/FISH OIL 1 GRAM CAP PO SCH (10:19)
[2020-07-27] MEDS: FENOFIBRATE 145 MG TAB PO SCH (10:19)
--- NOTE | 2020-07-27 11:52 | Progress Note ---
Assessment and Plan Cultures: 07/24/2020 blood culture: No growth A/P: 80-year-old male with ESRD on HD, diabetes, hypertension, prior CVA, vascular dementia: #Left foot cellulitis with gangrenous changes involving 1st and 2nd toes: Vascular following. Continue empiric antibiotics for now #Acute encephalopathy: Neurology on board. MRI brain with advanced volume loss, no acute findings. #ESRD on HD: Renally dose antibiotics. 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 No fever. Sleepy. Objective - Exam Narrative Exam: Physical Exam: Constitutional: sleeping Head, Ears, Nose: Normocephalic, atraumatic. External ears, nose normal Eyes: Conjunctivae/corneas clear. No icterus. No ptosis. Neck: Supple, no meningeal signs Cardiovascular: S1, S2 normal. Respiratory: Good air entry, clear to auscultation bilaterally GI: Soft, non-tender; bowel sounds normal. No peritoneal signs Musculoskeletal: Left great toe and second toe with gangrenous change Skin: Scabs on bilateral feet. Hem/Lymphatic: No palpable cervical or supraclavicular nodes. No lymphangitis Psych: Confused, no agitation Neurological: drowsy. confused - Constitutional Vitals: Vital Signs Temp Pulse Resp BP Pulse Ox 98.2 F 57 L 18 100/54 93 07/27/20 09:45 07/27/20 11:30 07/27/20 09:45 07/27/20 11:30 07/27/20 07:00 Temperature -Last 24 Hours Temperature 98.2 F Temperature 98.2 F Temperature 98.1 F Temperature 98.3 F Temperature 98.8 F Temperature 98.0 F - Labs CBC & Chem 7: 07/27/20 05:21 07/27/20 05:21 Labs: Abnormal lab results 07/26/20 07/26/20 07/26/20 Range/Units 12:27 12:51 16:27 WBC (4.5-11.0) K/mm3 RBC (3.65-5.03) M/mm3 Hgb (11.8-15.2) gm/dl Hct (35.5-45.6) % MCV (84-94) fl BUN (9-20) mg/dL Creatinine (0.8-1.3) mg/dL POC Glucose 65 L 124 H 52 L (70-105) mg/dL 07/26/20 07/27/20 07/27/20 Range/Units 18:13 05:21 05:21 WBC 11.5 H (4.5-11.0) K/mm3 RBC 3.16 L (3.65-5.03) M/mm3 Hgb 10.0 L (11.8-15.2) gm/dl Hct 29.8 L (35.5-45.6) % MCV 95 H (84-94) fl BUN 45 H (9-20) mg/dL Creatinine 5.6 H (0.8-1.3) mg/dL POC Glucose 147 H (70-105) mg/dL 07/27/20 07/27/20 Range/Units 07:37 09:10 WBC (4.5-11.0) K/mm3 RBC (3.65-5.03) M/mm3 Hgb (11.8-15.2) gm/dl Hct (35.5-45.6) % MCV (84-94) fl BUN (9-20) mg/dL Creatinine (0.8-1.3) mg/dL POC Glucose 41 L 129 H (70-105) mg/dL
[2020-07-27] MEDS: MONTELUKAST 10 MG TAB PO SCH (17:05)
[2020-07-27] MEDS ORDERED: VANCOMYCIN/NS 1 GM/250 ML 1 GM/250 ML BAG IV ONE (18:00)
[2020-07-27] MEDS: traZODone 50 MG TAB PO SCH (22:26)
[2020-07-27] MEDS: PRAVASTATIN 80 MG TAB PO SCH (22:27)
[2020-07-28] MEDS: PIPERACIL-TAZO 2.25 GM/50 ML 2.25 GM/50 ML BAG IV SCH ×3 (05:13→18:53)
[2020-07-28] MEDS: D5W/0.9% NACL 1,000 ML IV SCH ×2 (05:15→16:14)
[2020-07-28] MEDS: GABAPENTIN 100 MG CAP PO SCH ×3 (05:21→23:21)
[2020-07-28] MEDS: hydrALAZINE 25 MG TAB PO SCH ×3 (05:21→23:18)
[2020-07-28] MEDS: CALCIUM ACETATE 667 MG CAP PO SCH ×3 (09:51→16:51)
[2020-07-28] MEDS: SEVELAMER CARBONATE 800 MG TAB PO SCH ×3 (09:51→16:51)
[2020-07-28] MEDS: FERROUS SULFATE 325 MG TAB PO SCH ×2 (09:53→23:21)
[2020-07-28] MEDS: FOLIC ACID/VIT B COMP W-C 1 MG (RENAL CAPS) PO SCH (09:54)
[2020-07-28] MEDS: FENOFIBRATE 145 MG TAB PO SCH (09:55)
[2020-07-28] MEDS: OMEGA-3 FATTY ACIDS/FISH OIL 1 GRAM CAP PO SCH (09:55)
[2020-07-28] MEDS: allopurinoL 100 MG TAB PO SCH (09:55)
[2020-07-28] MEDS: DOXAZOSIN 4 MG TAB PO SCH (09:55)
[2020-07-28] MEDS: MULTIVITAMINS,THER W-MINERALS TAB PO SCH (09:55)
[2020-07-28] MEDS: carvediloL 6.25 MG TAB PO SCH ×2 (09:56→23:19)
[2020-07-28] MEDS: LOSARTAN 50 MG TAB PO SCH (09:56)
--- NOTE | 2020-07-28 11:28 | Progress Note ---
Subjective Interval history: Patient was seen today for follow-up of multiple renal related issues patient was also seen in supervised and hemodialysis which he seems to be tolerating well Catheter seems to be working well Interdisciplinary notes that also reviewed Events of 24 hours vitals labs intake output medications were reviewed Past medical history: Reviewed Family history: Reviewed Social history: Reviewed Allergies: Reviewed Physical examination: Vitals: Reviewed HEENT: No pallor or icterus oral mucosa moist Neck: Supple no JVD no thyromegaly Chest: Bilateral clear to auscultation anteriorly catheter site unremarkable Heart: Regular rate and rhythm S1-S2 heard no S3-S4 Abdomen: Soft nontender no voluntary guarding rigidity rebound Extremity: Dry skin less than 1+ peripheral edema Psychiatric: No evidence of agitation and aggression noted Dermatology: No petechial rashes Labs and x-rays: Reviewed from today Assessment and plan #End-stage renal disease: Continue with hemodialysis treatment Thursday and Thursday Patient dialysis access is a central venous catheter His blood pressure is much better controlled now #Hypertension appears to be well controlled, #as of yesterday hemoglobin was 10.0, potassium 4.5 calcium 8.6 vitamin B12 was normal, folic acid was normal dialysis access is a central venous catheter #Hypertension, goal blood pressure around 140/80 continue to monitor and adjust medications Continue with hydralazine for now #Diet and nutrition: Patient needs to be in high protein diet, #Volume and electrolyte Stable at this time #Bone mineral disorder: Check phosphorus and PTH level periodically, outpatient labs satisfactory #Multiple other complex comorbidities currently being managed by primary team #peripheral arterial disease, worsening gangrene, will discuss the care plan with vascular We'll continue to follow and make recommendation for renal standpoint Objective - Vital Signs Vital signs: Vital Signs - 12hr 07/28/20 07/28/20 07/28/20 05:20 05:21 09:55 Temperature 98.3 F Pulse Rate 47 L 65 Respiratory 20 Rate Blood Pressure 154/63 154/63 143/41 O2 Sat by Pulse 94 Oximetry 07/28/20 09:56 Temperature Pulse Rate 65 Respiratory Rate Blood Pressure 143/41 O2 Sat by Pulse Oximetry - Lab 07/27/20 05:21 07/27/20 05:21 Most recent lab results Calcium 8.6 mg/dL (8.4-10.2) 07/27/20 05:21 Medications & Allergies - Medications Allergies/Adverse Reactions: Allergies No Known Allergies Allergy (Verified 05/01/15 08:52) Home Medications: Home Medications Medication Instructions Recorded Confirmed Last Taken Type Calcium Acetate [Phoslo] 667 mg PO TID 07/24/20 07/24/20 Unknown History Fenofibrate 160 mg PO QDAY 07/24/20 07/24/20 Unknown History Gabapentin [Neurontin] 100 mg PO Q8HR 07/24/20 07/24/20 Unknown History HYDROcodone/ACETAMINOPHEN 1 each PO Q8HR PRN 07/24/20 07/24/20 Unknown History [Hydrocodone-Acetamin 5-300 mg] Losartan Potassium 100 mg PO QDAY 07/24/20 07/24/20 Unknown History Montelukast [Singulair] 10 mg PO QPM 07/24/20 07/24/20 Unknown History Sevelamer Carbonate [Renvela] 800 mg PO TIDWM 07/24/20 07/24/20 Unknown History Simvastatin 40 mg PO QDAY 07/24/20 07/24/20 Unknown History allopurinoL [Zyloprim] 100 mg PO QDAY 07/24/20 07/24/20 Unknown History traZODone [Desyrel] 50 mg PO QHS 07/24/20 07/24/20 Unknown History traZODone [Desyrel] 50 mg PO QHS 07/24/20 07/24/20 Unknown History Active Medications: Generic Name Dose Route Start Last Admin Trade Name Freq PRN Reason Stop Dose Admin Acetaminophen 650 mg 07/24/20 12:34 Acetaminophen 325 Mg Tab PO Q4H PRN Pain MILD(1-3)/Fever >100.5/ANDRADE Albuterol 2.5 mg 07/24/20 12:30 Albuterol 2.5 Mg/3 Ml Nebu IH Q4HRT PRN Shortness Of Breath Allopurinol 100 mg 07/25/20 10:00 07/28/20 09:55 Allopurinol 100 Mg Tab PO 100 mg QDAY SADAF Administration Calcium Acetate 667 mg 07/24/20 17:00 07/28/20 09:51 Calcium Acetate 667 Mg Cap PO 667 mg TIDWM SADAF Administration Carvedilol 6.25 mg 07/24/20 22:00 07/28/20 09:56 Carvedilol 6.25 Mg Tab PO 6.25 mg BID SADAF Administration Doxazosin Mesylate 4 mg 07/26/20 10:00 07/28/20 09:55 Doxazosin 4 Mg Tab PO 4 mg DAILY SADAF Administration Epoetin Jose 20,000 unit 07/26/20 10:00 07/26/20 14:07 Epoetin Jose 20,000 Unit/1 Ml Inj SUB-Q 20,000 unit Th SADAF Administration Fenofibrate 145 mg 07/25/20 10:00 07/28/20 09:55 Fenofibrate 145 Mg Tab PO 145 mg DAILY SADAF Administration Ferrous Sulfate 325 mg 07/24/20 22:00 07/28/20 09:53 Ferrous Sulfate 325 Mg Tab PO 325 mg BID SADAF Administration Fish Oil 1,000 mg 07/25/20 10:00 07/28/20 09:55 [place]-3 Fatty Acids/Fish Oil 1 Gram Cap PO 1,000 mg DAILY SADAF Administration Gabapentin 100 mg 07/24/20 22:00 07/28/20 05:21 Gabapentin 100 Mg Cap PO 100 mg Q8HR SADAF Administration Hydralazine HCl 25 mg 07/26/20 14:00 07/28/20 05:21 Hydralazine 25 Mg Tab PO 25 mg Q8HR SADAF Administration Piperacillin Sod/Tazobactam Sod 2.25 gm in 50 mls @ 100 mls/hr 07/25/20 11:00 07/28/20 05:13 Zosyn/Ns 2.25 Gm/50ml IV 100 mls/hr Q8H SADAF Administration Sodium Chloride 100 mls @ 999 mls/hr 07/25/20 14:30 Nacl 0.9% IV PETTY PRN Hypotension Dextrose/Sodium Chloride 1,000 mls @ 75 mls/hr 07/26/20 10:00 07/28/20 05:15 D5ns IV 75 mls/hr DIRECT SADAF Administration Losartan Potassium 100 mg 07/25/20 10:00 07/28/20 09:56 Losartan 50 Mg Tab PO 100 mg QDAY S[facility] Administration Montelukast Sodium 10 mg 07/24/20 18:00 07/27/20 17:05 Montelukast 10 Mg Tab PO 10 mg QPM SAD[facility] Administration Morphine Sulfate 2 mg 07/24/20 12:30 Morphine 2 Mg/1 Ml Inj IV Q6H PRN Pain , Severe (7-10) Multivit/Ca Carb/B Cmplx/FA/Prenat 1 cap 07/26/20 10:00 07/28/20 09:54 Folic Acid/Vit B Comp W-C 1 Mg (Renal Caps) PO 1 cap QDAY SADAF Administration Multivitamins/Minerals 1 each 07/25/20 10:00 07/28/20 09:55 Multivitamins,Ther W-Minerals Tab PO 1 each QDAY [facility] Administration Ondansetron HCl 4 mg 07/24/20 12:00 Ondansetron 4 Mg/2 Ml Inj IV Q8H PRN Nausea And Vomiting Oxycodone/Acetaminophen 1 tab 07/24/20 12:30 07/25/20 00:30 Oxycodone /Acetaminophen 5-325mg Tab PO 1 tab Q6H PRN Administration Pain, Moderate (4-6) Pravastatin Sodium 80 mg 07/24/20 22:00 07/27/20 22:27 Pravastatin 80 Mg Tab PO 80 mg QHS SADAF Administration Sevelamer Carbonate 800 mg 07/24/20 17:00 07/28/20 09:51 Sevelamer Carbonate 800 Mg Tab PO 800 mg TIDWM SAD[facility] Administration Sodium Chloride 10 ml 07/24/20 12:30 07/27/20 22:28 Sodium Chloride 0.9% 10 Ml Flush Syringe IV 10 ml BID SADAF Administration Sodium Chloride 10 ml 07/24/20 12:30 07/24/20 12:39 Sodium Chloride 0.9% 10 Ml Flush Syringe IV 10 ml PRN PRN Administration LINE FLUSH Trazodone HCl 50 mg 07/24/20 22:00 07/27/20 22:26 Trazodone 50 Mg Tab PO 50 mg QHS SADAF Administration
--- NOTE | 2020-07-28 11:44 | Progress Note ---
Assessment and Plan Assessment and plan: 80 YO Male with ESRD on HD (M, W, F), HTN, DM, Vascular Dementia, Cerebral Atherosclerosis presents to ED for evaluation. Patient is confused and unable to provide detailed history at time of exam. Patient caregiver is at bedside during exam and interview and provides history. As per the patient's the patient has experienced increased weakness and confusion over the past 1 month with increased bedbound status. Patient was seen and evaluated by his vascular surgeon today and was found to have left foot cellulitis. Patient was instructed to seek further care at [facility]. Patient transported to [facility] via private vehicle for further care and evaluation of the aforementioned symptoms. The patient was seen and evaluated in the emergency department. All lab and imaging studies reviewed. Patient found to have end-stage renal disease, left foot cellulitis complicated by systemic inflammatory response syndrome, as well as peripheral vascular disease. Patient admitted to medical floor and initiated on IV antibiotic therapy. Nephrology team consulted in ED. Vascular surgery team consulted in ED. No further history is obtainable. No reports of fever, chills, chest pain, palpitation, productive cough, skin rash, syncope, trauma, recent ill contacts, or known exposure to COVID-19. Patient is unable to provide history but has a positive gag reflex and is able to protect his airway without difficulty at the time my evaluation. Prior admission on 07/05/2019 reviewed. All medication listed at time of admission has been reconciled. Advanced care planning conducted in ED. CT: Head: Negative for acute pathology. 33: Discussed with the IR, patient with new onset Altered mental status from the last time they saw the patient. Will begin work-up for possible underlying sepsis etiology or source unknown at this time. Will obtain ID consulted and Neurology. Continue abx, attempted to reach family. Concern for stroke is low but considering hx of vasculopathy will obtain Neurolo gy Will also obtain wound consultation. 3/4: Some improvement noted with initiation of antibiotics. We will continue current management patient continues on hemodialysis. Will await further vascular improvement as patient is beginning to show some improvement. Discussed with case management. Apparently the person that came with the patient is not the patient's but a caregiver H&P portion of this note has been corrected. Continue wound care and every 2 hours turns. 5: Continue current management plan. Vascular to re-evaluate. Continue abx. MRI with no acute pathology. Agree with the D5 as patient still has some intermittent confusion. Continue to monitor. Speech evaluation for swallow management. /6: Patient clinically stable, continue supportive care, abx, awaiting full vascular input. cONTINUE D5 for now. (1) Sepsis Current Visit: Yes Status: Acute Plan to address problem: CBC, CMP, empiric IV antibiotic therapy x1 dose, repeat CBC in a.m. (2) End stage renal disease Current Visit: No Status: Acute Plan to address problem: Nephrology team consulted in ED, dialysis as per renal team. (3) Cellulitis/ left first digit gangrene Current Visit: Yes Status: Acute Qualifiers: Site of cellulitis of extremity: lower extremity Laterality: left Plan to address problem: CBC, CMP, IV antibiotic therapy, supportive care, wound care consulted. (4) Peripheral vascular disease Current Visit: Yes Status: Acute Plan to address problem: Vascular surgery consulted, continue medical management. (5) Acute metabolic encephalopathy Current Visit: No Status: Acute Plan to address problem: CT head, neuro check, seizure precautions, aspiration precautions, fall precautions. (6) Vascular dementia Current Visit: Yes Status: Acute Qualifiers: Dementia behavioral disturbance: without behavioral disturbance Qualified Code(s): F01.50 - Vascular dementia without behavioral disturbance Plan to address problem: Verbal prompting, verbal redirection, benzodiazepine therapy as clinically indicated. (7) Cerebral atherosclerosis Current Visit: Yes Status: Acute Plan to address problem: Antiplatelet therapy, risk factor reduction, supportive care. (8)Moderate protein calorie malnutrition (9) Stage 1 pressure ulcer sacrum (10) Advance care planning Current Visit: No Status: Acute Plan to address problem: Disease education conducted, care plan discussed, diagnosis discussed, patient is full code, patient knowledges understanding and agreement with care plan, +30 minutes. (11) DVT prophylaxis Current Visit: No Status: Acute Plan to address problem: SCD to bilateral lower extremities while in bed, prophylactic anticoagulation. History Interval history: Patient seen and examined resting comfortably mental status improved this morning. tolerating diet today Hospitalist Physical - Physical exam Narrative exam: General appearance: Present: mild in no distress distress, cachectic - EENT Eyes: Present: PERRL ENT: hearing intact, clear oral mucosa - Neck Neck: Present: supple, normal ROM - Respiratory Respiratory effort: normal Respiratory: bilateral: CTA - Cardiovascular Heart Sounds: Present: S1 & S2. Absent: rub, click - Extremities Extremities: pulses symmetrical, No edema Peripheral Pulses: within normal limits - Abdominal General gastrointestinal: Present: soft, non-tender, non-distended, normal bowel sounds Male genitourinary: Present: normal - Integumentary Integumentary: Present:multiple ischemic necrotic lesions. , warm, dry - Musculoskeletal Musculoskeletal: generalized weakness - Psychiatric Psychiatric: improving although still with some intermittent confusion - Neurologic Neurologic: CNII-XII intact, no focal deficits, moves all extremities, no gait normal - Constitutional Vitals: Temp Pulse Resp BP Pulse Ox 98.3 F 65 20 143/41 94 07/28/20 05:20 07/28/20 09:56 07/28/20 05:20 07/28/20 09:56 07/28/20 05:20 General appearance: Present: mild distress Results - Labs CBC & Chem 7: 07/27/20 05:21 07/27/20 05:21 Labs: Laboratory Last Values WBC 11.5 K/mm3 (4.5-11.0) H 07/27/20 05:21 RBC 3.16 M/mm3 (3.65-5.03) L 07/27/20 05:21 Hgb 10.0 gm/dl (11.8-15.2) L 07/27/20 05:21 Hct 29.8 % (35.5-45.6) L 07/27/20 05:21 MCV 95 fl (84-94) H 07/27/20 05:21 MCH 32 pg (28-32) 07/27/20 05:21 MCHC 34 % (32-34) 07/27/20 05:21 RDW 14.7 % (13.2-15.2) 07/27/20 05:21 Plt Count 197 K/mm3 (140-440) 07/27/20 05:21 Lymph % (Auto) 9.0 % (13.4-35.0) L 07/25/20 05:42 [place] % (Auto) 6.9 % (0.0-7.3) 07/25/20 05:42 Eos % (Auto) 0.9 % (0.0-4.3) 07/25/20 05:42 Baso % (Auto) 0.6 % (0.0-1.8) 07/25/20 05:42 Lymph # (Auto) 1.0 K/mm3 (1.2-5.4) L 07/25/20 05:42 [place] # (Auto) 0.8 K/mm3 (0.0-0.8) 07/25/20 05:42 Eos # (Auto) 0.1 K/mm3 (0.0-0.4) 07/25/20 05:42 Baso # (Auto) 0.1 K/mm3 (0.0-0.1) 07/25/20 05:42 Seg Neutrophils % 82.6 % (40.0-70.0) H 07/25/20 05:42 Seg Neutrophils # 9.4 K/mm3 (1.8-7.7) H 07/25/20 05:42 PT 13.5 Sec. (12.2-14.9) 07/24/20 08:40 INR 1.04 (0.87-1.13) 07/24/20 08:40 APTT 45.0 Sec. (24.2-36.6) H 07/24/20 08:40 Sodium 138 mmol/L (137-145) 07/27/20 05:21 Potassium 4.5 mmol/L (3.6-5.0) 07/27/20 05:21 Chloride 100.9 mmol/L (98-107) 07/27/20 05:21 Carbon Dioxide 27 mmol/L (22-30) 07/27/20 05:21 Anion Gap 15 mmol/L 07/27/20 05:21 BUN 45 mg/dL (9-20) H 07/27/20 05:21 Creatinine 5.6 mg/dL (0.8-1.3) H 07/27/20 05:21 Estimated GFR 10 ml/min 07/27/20 05:21 BUN/Creatinine Ratio 8 % 07/27/20 05:21 Glucose 82 mg/dL (75-100) 07/27/20 05:21 POC Glucose 123 mg/dL (70-105) H 07/27/20 21:16 Lactic Acid 0.90 mmol/L (0.7-2.0) 07/24/20 10:20 Calcium 8.6 mg/dL (8.4-10.2) 07/27/20 05:21 Prealbumin 0.116 g/L (0.200-0.400) L 07/27/20 16:25 Vitamin B12 980.0 pg/mL (211-911) H 07/27/20 16:25 Folate 12.73 ng/mL (7.3-26.0) 07/27/20 16:25 Nasal Screen MRSA (PCR) Negative (Negative) 07/24/20 Unknown Random Vancomycin 16.3 ug/mL (0-40.0) 07/26/20 05:25 Hepatitis A IgM Ab Non-reactive (NonReactive) 07/25/20 15:30 Hep Bs Antigen Non-reactive (Negative) 07/25/20 15:30 Hep B Core IgM Ab Non-reactive (NonReactive) 07/25/20 15:30 Hepatitis C Antibody Non-reactive (NonReactive) 07/25/20 15:30 Microbiology: Microbiology 07/24/20 10:20 Peripheral/Venous Blood Culture - Preliminary NO GROWTH AFTER 4 DAYS 07/24/20 10:20 Peripheral/Venous Blood Culture - Preliminary NO GROWTH AFTER 4 DAYS Jaimes/IV: Voiding Method Incontinent Active Medications - Current Medications Current Medications: Generic Name Dose Route Start Last Admin Trade Name Freq PRN Reason Stop Dose Admin Acetaminophen 650 mg 07/24/20 12:34 Acetaminophen 325 Mg Tab PO Q4H PRN Pain MILD(1-3)/Fever >100.5/ANDRADE Albuterol 2.5 mg 07/24/20 12:30 Albuterol 2.5 Mg/3 Ml Nebu IH Q4HRT PRN Shortness Of Breath Allopurinol 100 mg 07/25/20 10:00 07/28/20 09:55 Allopurinol 100 Mg Tab PO 100 mg QDAY SADAF Administration Calcium Acetate 667 mg 07/24/20 17:00 07/28/20 09:51 Calcium Acetate 667 Mg Cap PO 667 mg TIDWM SADAF Administration Carvedilol 6.25 mg 07/24/20 22:00 07/28/20 09:56 Carvedilol 6.25 Mg Tab PO 6.25 mg BID SADAF Administration Doxazosin Mesylate 4 mg 07/26/20 10:00 07/28/20 09:55 Doxazosin 4 Mg Tab PO 4 mg DAILY SADAF Administration Epoetin Jose 20,000 unit 07/26/20 10:00 07/26/20 14:07 Epoetin Jose 20,000 Unit/1 Ml Inj SUB-Q 20,000 unit Th SADAF Administration Fenofibrate 145 mg 07/25/20 10:00 07/28/20 09:55 Fenofibrate 145 Mg Tab PO 145 mg DAILY SADAF Administration Ferrous Sulfate 325 mg 07/24/20 22:00 07/28/20 09:53 Ferrous Sulfate 325 Mg Tab PO 325 mg BID SADAF Administration Fish Oil 1,000 mg 07/25/20 10:00 07/28/20 09:55 [place]-3 Fatty Acids/Fish Oil 1 Gram Cap PO 1,000 mg DAILY SADAF Administration Gabapentin 100 mg 07/24/20 22:00 07/28/20 05:21 Gabapentin 100 Mg Cap PO 100 mg Q8HR SADAF Administration Hydralazine HCl 25 mg 07/26/20 14:00 07/28/20 05:21 Hydralazine 25 Mg Tab PO 25 mg Q8HR SADAF Administration Piperacillin Sod/Tazobactam Sod 2.25 gm in 50 mls @ 100 mls/hr 07/25/20 11:00 07/28/20 05:13 Zosyn/Ns 2.25 Gm/50ml IV 100 mls/hr Q8H SADAF Administration Sodium Chloride 100 mls @ 999 mls/hr 07/25/20 14:30 Nacl 0.9% IV PETTY PRN Hypotension Dextrose/Sodium Chloride 1,000 mls @ 75 mls/hr 07/26/20 10:00 07/28/20 05:15 D5ns IV 75 mls/hr DIRECT SADAF Administration Losartan Potassium 100 mg 07/25/20 10:00 07/28/20 09:56 Losartan 50 Mg Tab PO 100 mg QDAY SADAF Administration Montelukast Sodium 10 mg 07/24/20 18:00 07/27/20 17:05 Montelukast 10 Mg Tab PO 10 mg QPM SADAF Administration Morphine Sulfate 2 mg 07/24/20 12:30 Morphine 2 Mg/1 Ml Inj IV Q6H PRN Pain , Severe (7-10) Multivit/Ca Carb/B Cmplx/FA/Prenat 1 cap 07/26/20 10:00 07/28/20 09:54 Folic Acid/Vit B Comp W-C 1 Mg (Renal Caps) PO 1 cap QDAY SADAF Administration Multivitamins/Minerals 1 each 07/25/20 10:00 07/28/20 09:55 Multivitamins,Ther W-Minerals Tab PO 1 each QDAY SADAF Administration Ondansetron HCl 4 mg 07/24/20 12:00 Ondansetron 4 Mg/2 Ml Inj IV Q8H PRN Nausea And Vomiting Oxycodone/Acetaminophen 1 tab 07/24/20 12:30 07/25/20 00:30 Oxycodone /Acetaminophen 5-325mg Tab PO 1 tab Q6H PRN Administration Pain, Moderate (4-6) Pravastatin Sodium 80 mg 07/24/20 22:00 07/27/20 22:27 Pravastatin 80 Mg Tab PO 80 mg QHS SADAF Administration Sevelamer Carbonate 800 mg 07/24/20 17:00 07/28/20 09:51 Sevelamer Carbonate 800 Mg Tab PO 800 mg TIDWM SADAF Administration Sodium Chloride 10 ml 07/24/20 12:30 07/27/20 22:28 Sodium Chloride 0.9% 10 Ml Flush Syringe IV 10 ml BID SADAF Administration Sodium Chloride 10 ml 07/24/20 12:30 07/24/20 12:39 Sodium Chloride 0.9% 10 Ml Flush Syringe IV 10 ml PRN PRN Administration LINE FLUSH Trazodone HCl 50 mg 07/24/20 22:00 07/27/20 22:26 Trazodone 50 Mg Tab PO 50 mg QHS SADAF Administration Nutrition/Malnutrition Assess - Dietary Evaluation Nutrition/Malnutrition Findings: Nutrition Notes Start: 07/25/20 13:43 Freq: Status: Active Protocol: Document 07/26/20 13:46 AL (Rec: 07/26/20 13:54 AL [id number]) Co-Sign 07/26/20 13:46 LP Nutrition Notes Initial or Follow up Reassessment Current Diagnosis CKD (stage V CKD),Decubitus( Pressure Ulcer),Diabetes Other Pertinent Diagnosis on HD, Cellulitis, Gangrene, Cerebral Atherosclerosis, SIRS Current Diet Cardiac Diet Labs/Tests POC BG 65 Pertinent Medications Reviewed Height 5 ft 9 in Weight 72.57 kg [place] Body Weight (kg) 72.72 BMI 23.6 Weight Status Appropriate Subjective/Other Information FU for intakes and ONS tolerance. Pt reports appetite is good and food is good. Pt has AMS. Breakfast and Nepro supplement untouched on the table. According to 3/3 ADL, pt consumed 50% of breakfast, lunch, and dinner) Percent of energy/protein needs met: 57%/49% Burn Absent Trauma Absent Minimum of two criteria No #3 Nutrition Diagnosis Inadequate energy intake Etiology AMS advanced age As Evidenced by Signs and Symptoms pt meets 57%/49% of estimated energy/protein needs #2 Nutrition Diagnosis Increased nutrient needs ( specify in comment below) Comments: protein Diagnosis Progress(for reassessment Continues documentation) #1 Nutrition Diagnosis Predicted suboptimal energy intake Etiology AMS advanced age As Evidenced by Signs and Symptoms pt meets 57%/49% of estimated energy/protein needs Diagnosis Progress(for reassessment Resolved documentation) Is patient on ventilator? No Is Patient Ambulatory and/or Out of Bed No REE-([facility] Jenv-confined to bed) 6643.666 Calculation Used for Recommendations [facility] Additional Notes PRO needs: >87g (>1.2 g/kg) Fluid needs: Urine output + 1000 mL or per MD Nutrition Intervention Change Diet Order: Continue Cardiac Diet Add Supplement/Snack (indicate name/kcal Nepro daily /protein ) Provides kCal: 425 Provides Protein (gm) 19 Goal #1 Meet at least 75% of estimated energy and protein needs via diet and ONS Goal #2 Wound healing Anticipated Discharge Needs: Renal/Consistent CHO Diet Follow-Up By: 07/30/20 Additional Comments F/U intakes, ONS tolerance
[2020-07-28] MEDS ORDERED: hydrALAZINE 25 MG TAB PO ONE (17:00)
[2020-07-28] MEDS: MONTELUKAST 10 MG TAB PO SCH (17:24)
[2020-07-28] MEDS: hydrALAZINE 20 MG/1 ML INJ IV PRN (19:01)
--- NOTE | 2020-07-28 22:28 | Event Note ---
Date: 07/28/20 Reviewed labs and notes. Mental status improving. BCx negative. Unclear what cause of AMS was. Plan for revascularization on thursday. NPO except sips of water with meds. supervisor dental laboratory scheduled.
[2020-07-28] MEDS: traZODone 50 MG TAB PO SCH (23:20)
[2020-07-28] MEDS: PRAVASTATIN 80 MG TAB PO SCH (23:22)
[2020-07-29] MEDS: PIPERACIL-TAZO 2.25 GM/50 ML 2.25 GM/50 ML BAG IV SCH ×3 (02:15→18:48)
[2020-07-29] MEDS: hydrALAZINE 25 MG TAB PO SCH ×3 (06:24→22:16)
[2020-07-29] MEDS: GABAPENTIN 100 MG CAP PO SCH ×3 (06:25→20:00)
--- NOTE | 2020-07-29 08:31 | Progress Note ---
Subjective Interval history: Patient was seen today for follow-up of multiple renal related issues he has plans for revascularization on Thursday Interdisciplinary notes that also reviewed Events of 24 hours vitals labs intake output medications were reviewed Past medical history: Reviewed Family history: Reviewed Social history: Reviewed Allergies: Reviewed Physical examination: Vitals: Reviewed HEENT: No pallor or icterus oral mucosa moist Neck: Supple no JVD no thyromegaly Chest: Bilateral clear to auscultation anteriorly catheter site unremarkable Heart: Regular rate and rhythm S1-S2 heard no S3-S4 Abdomen: Soft nontender no voluntary guarding rigidity rebound Extremity: Dry skin less than 1+ peripheral edema Psychiatric: No evidence of agitation and aggression noted Dermatology: No petechial rashes Labs and x-rays: Reviewed from today Assessment and plan #End-stage renal disease: Continue with hemodialysis treatment Thursday and Thursday Patient dialysis access is a central venous catheter As of today blood pressure is well controlled 149/61 heart rate is 71 patient is afebrile September 26 his hemoglobin was 10.0, potassium 4.5 is him level was 8.6 B12 normal folic acid was normal His planning for revascularization Thursday #hypertension doing better after addition of hydralazine #Diet and nutrition: Patient needs to be in high protein diet, #Volume and electrolyte Stable at this time #Bone mineral disorder: Check phosphorus and PTH level periodically, outpatient labs satisfactory #Multiple other complex comorbidities currently being managed by primary team #peripheral arterial disease, worsening gangrene, will discuss the care plan with vascular We'll continue to follow and make recommendation for renal standpoint Objective - Vital Signs Vital signs: Vital Signs - 12hr 07/28/20 07/28/20 07/28/20 22:00 23:18 23:19 Temperature Pulse Rate 73 73 Respiratory Rate Blood Pressure 164/54 164/54 Blood Pressure [Right] O2 Sat by Pulse 94 Oximetry 07/28/20 07/29/20 07/29/20 23:38 04:00 06:24 Temperature 97.6 F 98 F Pulse Rate 73 71 71 Respiratory 18 18 Rate Blood Pressure 149/61 Blood Pressure 164/54 116/92 [Right] O2 Sat by Pulse 94 95 Oximetry - Lab 07/27/20 05:21 07/27/20 05:21 Most recent lab results Calcium 8.6 mg/dL (8.4-10.2) 07/27/20 05:21 Medications & Allergies - Medications Allergies/Adverse Reactions: Allergies No Known Allergies Allergy (Verified 05/01/15 08:52) Home Medications: Home Medications Medication Instructions Recorded Confirmed Last Taken Type Calcium Acetate [Phoslo] 667 mg PO TID 07/24/20 07/24/20 Unknown History Fenofibrate 160 mg PO QDAY 07/24/20 07/24/20 Unknown History Gabapentin [Neurontin] 100 mg PO Q8HR 07/24/20 07/24/20 Unknown History HYDROcodone/ACETAMINOPHEN 1 each PO Q8HR PRN 07/24/20 07/24/20 Unknown History [Hydrocodone-Acetamin 5-300 mg] Losartan Potassium 100 mg PO QDAY 07/24/20 07/24/20 Unknown History Montelukast [Singulair] 10 mg PO QPM 07/24/20 07/24/20 Unknown History Sevelamer Carbonate [Renvela] 800 mg PO TIDWM 07/24/20 07/24/20 Unknown History Simvastatin 40 mg PO QDAY 07/24/20 07/24/20 Unknown History allopurinoL [Zyloprim] 100 mg PO QDAY 07/24/20 07/24/20 Unknown History traZODone [Desyrel] 50 mg PO QHS 07/24/20 07/24/20 Unknown History traZODone [Desyrel] 50 mg PO QHS 07/24/20 07/24/20 Unknown History Active Medications: Generic Name Dose Route Start Last Admin Trade Name Freq PRN Reason Stop Dose Admin Acetaminophen 650 mg 07/24/20 12:34 Acetaminophen 325 Mg Tab PO Q4H PRN Pain MILD(1-3)/Fever >100.5/ANDRADE Albuterol 2.5 mg 07/24/20 12:30 Albuterol 2.5 Mg/3 Ml Nebu IH Q4HRT PRN Shortness Of Breath Allopurinol 100 mg 07/25/20 10:00 07/28/20 09:55 Allopurinol 100 Mg Tab PO 100 mg QDAY SADAF Administration Calcium Acetate 667 mg 07/24/20 17:00 07/28/20 16:51 Calcium Acetate 667 Mg Cap PO 667 mg TIDWM SADAF Administration Carvedilol 6.25 mg 07/24/20 22:00 07/28/20 23:19 Carvedilol 6.25 Mg Tab PO 6.25 mg BID SADAF Administration Doxazosin Mesylate 4 mg 07/26/20 10:00 07/28/20 09:55 Doxazosin 4 Mg Tab PO 4 mg DAILY SADAF Administration Epoetin Jose 20,000 unit 07/26/20 10:00 07/26/20 14:07 Epoetin Jose 20,000 Unit/1 Ml Inj SUB-Q 20,000 unit Th SADAF Administration Fenofibrate 145 mg 07/25/20 10:00 07/28/20 09:55 Fenofibrate 145 Mg Tab PO 145 mg DAILY SADAF Administration Ferrous Sulfate 325 mg 07/24/20 22:00 07/28/20 23:21 Ferrous Sulfate 325 Mg Tab PO 325 mg BID SADAF Administration Fish Oil 1,000 mg 07/25/20 10:00 07/28/20 09:55 [place]-3 Fatty Acids/Fish Oil 1 Gram Cap PO 1,000 mg DAILY SADAF Administration Gabapentin 100 mg 07/24/20 22:00 07/29/20 06:25 Gabapentin 100 Mg Cap PO 100 mg Q8HR SADAF Administration Hydralazine HCl 50 mg 07/28/20 22:00 07/29/20 06:24 Hydralazine 25 Mg Tab PO 50 mg Q8HR SADAF Administration Hydralazine HCl 10 mg 07/28/20 16:22 07/28/20 19:01 Hydralazine 20 Mg/1 Ml Inj IV 10 mg Q6H PRN Administration Blood Pressure Piperacillin Sod/Tazobactam Sod 2.25 gm in 50 mls @ 100 mls/hr 07/25/20 11:00 07/29/20 02:15 Zosyn/Ns 2.25 Gm/50ml IV 100 mls/hr Q8H SADAF Administration Sodium Chloride 100 mls @ 999 mls/hr 07/25/20 14:30 Nacl 0.9% IV PETTY PRN Hypotension Dextrose/Sodium Chloride 1,000 mls @ 75 mls/hr 07/26/20 10:00 07/28/20 16:14 D5ns IV 75 mls/hr DIRECT SADAF Administration Losartan Potassium 100 mg 07/25/20 10:00 07/28/20 09:56 Losartan 50 Mg Tab PO 100 mg QDAY SADAF Administration Montelukast Sodium 10 mg 07/24/20 18:00 07/28/20 17:24 Montelukast 10 Mg Tab PO 10 mg QPM SADAF Administration Morphine Sulfate 2 mg 07/24/20 12:30 Morphine 2 Mg/1 Ml Inj IV Q6H PRN Pain , Severe (7-10) Multivit/Ca Carb/B Cmplx/FA/Prenat 1 cap 07/26/20 10:00 07/28/20 09:54 Folic Acid/Vit B Comp W-C 1 Mg (Renal Caps) PO 1 cap QDAY SADAF Administration Multivitamins/Minerals 1 each 07/25/20 10:00 07/28/20 09:55 Multivitamins,Ther W-Minerals Tab PO 1 each QDAY SADAF Administration Ondansetron HCl 4 mg 07/24/20 12:00 Ondansetron 4 Mg/2 Ml Inj IV Q8H PRN Nausea And Vomiting Oxycodone/Acetaminophen 1 tab 07/24/20 12:30 07/25/20 00:30 Oxycodone /Acetaminophen 5-325mg Tab PO 1 tab Q6H PRN Administration Pain, Moderate (4-6) Pravastatin Sodium 80 mg 07/24/20 22:00 07/28/20 23:22 Pravastatin 80 Mg Tab PO 80 mg QHS SADAF Administration Sevelamer Carbonate 800 mg 07/24/20 17:00 07/28/20 16:51 Sevelamer Carbonate 800 Mg Tab PO 800 mg TIDWM SADAF Administration Sodium Chloride 10 ml 07/24/20 12:30 07/28/20 23:22 Sodium Chloride 0.9% 10 Ml Flush Syringe IV Not Given BID SADAF Sodium Chloride 10 ml 07/24/20 12:30 07/24/20 12:39 Sodium Chloride 0.9% 10 Ml Flush Syringe IV 10 ml PRN PRN Administration LINE FLUSH Trazodone HCl 50 mg 07/24/20 22:00 07/28/20 23:20 Trazodone 50 Mg Tab PO 50 mg QHS SADAF Administration
[2020-07-29] MEDS: D5W/0.9% NACL 1,000 ML IV SCH (08:57)
[2020-07-29] MEDS: SEVELAMER CARBONATE 800 MG TAB PO SCH ×3 (09:01→17:39)
[2020-07-29] MEDS: CALCIUM ACETATE 667 MG CAP PO SCH ×3 (09:01→17:39)
--- NOTE | 2020-07-29 10:01 | Progress Note ---
Assessment and Plan Patient will be scheduled for planned revascularization of his left lower extremity tomorrow. Subjective Date of service: 07/29/20 Principal diagnosis: Peripheral vascular disease with gangrene Interval history: Patient with a history of peripheral vascular disease with gangrene and worsening dementia on presentation for planned revascularization. He was subsequently sent to the hospital and is now has significant improvement in his mental status. Objective - Constitutional Vitals: Vital Signs - 12hr 07/28/20 07/28/20 07/28/20 22:00 23:18 23:19 Temperature Pulse Rate 73 73 Respiratory Rate Blood Pressure 164/54 164/54 Blood Pressure [Right] O2 Sat by Pulse 94 Oximetry 07/28/20 07/29/20 07/29/20 23:38 04:00 06:24 Temperature 97.6 F 98 F Pulse Rate 73 71 71 Respiratory 18 18 Rate Blood Pressure 149/61 Blood Pressure 164/54 116/92 [Right] O2 Sat by Pulse 94 95 Oximetry General appearance: Present: no acute distress - EENT Eyes: EOM intact ENT: hearing intact - Neck Neck: supple - Respiratory Respiratory effort: normal Extremities: abnormal - Gastrointestinal General gastrointestinal: Present: deferred Rectal Exam: deferred - Genitourinary Male genitourinary: deferred - Psychiatric Psychiatric: cooperative - Labs CBC & Chem 7: 07/27/20 05:21 07/27/20 05:21 Labs: Abnormal lab results 07/28/20 07/28/20 07/28/20 Range/Units 11:41 15:47 22:07 POC Glucose 117 H 148 H 119 H (70-105) mg/dL 07/29/20 Range/Units 07:42 POC Glucose 106 H (70-105) mg/dL Medications & Allergies - Medications Allergies/Adverse Reactions: Allergies No Known Allergies Allergy (Verified 05/01/15 08:52) Home Medications: Home Medications Medication Instructions Recorded Confirmed Last Taken Type Calcium Acetate [Phoslo] 667 mg PO TID 07/24/20 07/24/20 Unknown History Fenofibrate 160 mg PO QDAY 07/24/20 07/24/20 Unknown History Gabapentin [Neurontin] 100 mg PO Q8HR 07/24/20 07/24/20 Unknown History HYDROcodone/ACETAMINOPHEN 1 each PO Q8HR PRN 07/24/20 07/24/20 Unknown History [Hydrocodone-Acetamin 5-300 mg] Losartan Potassium 100 mg PO QDAY 07/24/20 07/24/20 Unknown History Montelukast [Singulair] 10 mg PO QPM 07/24/20 07/24/20 Unknown History Sevelamer Carbonate [Renvela] 800 mg PO TIDWM 07/24/20 07/24/20 Unknown History Simvastatin 40 mg PO QDAY 07/24/20 07/24/20 Unknown History allopurinoL [Zyloprim] 100 mg PO QDAY 07/24/20 07/24/20 Unknown History traZODone [Desyrel] 50 mg PO QHS 07/24/20 07/24/20 Unknown History traZODone [Desyrel] 50 mg PO QHS 07/24/20 07/24/20 Unknown History Active Medications: Generic Name Dose Route Start Last Admin Trade Name Freq PRN Reason Stop Dose Admin Acetaminophen 650 mg 07/24/20 12:34 Acetaminophen 325 Mg Tab PO Q4H PRN Pain MILD(1-3)/Fever >100.5/ANDRADE Albuterol 2.5 mg 07/24/20 12:30 Albuterol 2.5 Mg/3 Ml Nebu IH Q4HRT PRN Shortness Of Breath Allopurinol 100 mg 07/25/20 10:00 07/28/20 09:55 Allopurinol 100 Mg Tab PO 100 mg QDAY SADAF Administration Calcium Acetate 667 mg 07/24/20 17:00 07/29/20 09:01 Calcium Acetate 667 Mg Cap PO 667 mg TIDWM SADAF Administration Carvedilol 6.25 mg 07/24/20 22:00 07/28/20 23:19 Carvedilol 6.25 Mg Tab PO 6.25 mg BID SADAF Administration Doxazosin Mesylate 4 mg 07/26/20 10:00 07/28/20 09:55 Doxazosin 4 Mg Tab PO 4 mg DAILY SADAF Administration Epoetin Jose 20,000 unit 07/26/20 10:00 07/26/20 14:07 Epoetin Jose 20,000 Unit/1 Ml Inj SUB-Q 20,000 unit Th SADAF Administration Fenofibrate 145 mg 07/25/20 10:00 07/28/20 09:55 Fenofibrate 145 Mg Tab PO 145 mg DAILY SADAF Administration Ferrous Sulfate 325 mg 07/24/20 22:00 07/28/20 23:21 Ferrous Sulfate 325 Mg Tab PO 325 mg BID SADAF Administration Fish Oil 1,000 mg 07/25/20 10:00 07/28/20 09:55 [place]-3 Fatty Acids/Fish Oil 1 Gram Cap PO 1,000 mg DAILY SADAF Administration Gabapentin 100 mg 07/24/20 22:00 07/29/20 06:25 Gabapentin 100 Mg Cap PO 100 mg Q8HR SADAF Administration Hydralazine HCl 50 mg 07/28/20 22:00 07/29/20 06:24 Hydralazine 25 Mg Tab PO 50 mg Q8HR SADAF Administration Hydralazine HCl 10 mg 07/28/20 16:22 07/28/20 19:01 Hydralazine 20 Mg/1 Ml Inj IV 10 mg Q6H PRN Administration Blood Pressure Piperacillin Sod/Tazobactam Sod 2.25 gm in 50 mls @ 100 mls/hr 07/25/20 11:00 07/29/20 02:15 Zosyn/Ns 2.25 Gm/50ml IV 100 mls/hr Q8H SADAF Administration Sodium Chloride 100 mls @ 999 mls/hr 07/25/20 14:30 Nacl 0.9% IV PETTY PRN Hypotension Dextrose/Sodium Chloride 1,000 mls @ 75 mls/hr 07/26/20 10:00 07/29/20 08:57 D5ns IV 75 mls/hr DIRECT SADAF Administration Losartan Potassium 100 mg 07/25/20 10:00 07/28/20 09:56 Losartan 50 Mg Tab PO 100 mg QDAY SADAF Administration Montelukast Sodium 10 mg 07/24/20 18:00 07/28/20 17:24 Montelukast 10 Mg Tab PO 10 mg QPM SADAF Administration Morphine Sulfate 2 mg 07/24/20 12:30 Morphine 2 Mg/1 Ml Inj IV Q6H PRN Pain , Severe (7-10) Multivit/Ca Carb/B Cmplx/FA/Prenat 1 cap 07/26/20 10:00 07/28/20 09:54 Folic Acid/Vit B Comp W-C 1 Mg (Renal Caps) PO 1 cap QDAY SADAF Administration Multivitamins/Minerals 1 each 07/25/20 10:00 07/28/20 09:55 Multivitamins,Ther W-Minerals Tab PO 1 each QDAY SADAF Administration Ondansetron HCl 4 mg 07/24/20 12:00 Ondansetron 4 Mg/2 Ml Inj IV Q8H PRN Nausea And Vomiting Oxycodone/Acetaminophen 1 tab 07/24/20 12:30 07/25/20 00:30 Oxycodone /Acetaminophen 5-325mg Tab PO 1 tab Q6H PRN Administration Pain, Moderate (4-6) Pravastatin Sodium 80 mg 07/24/20 22:00 07/28/20 23:22 Pravastatin 80 Mg Tab PO 80 mg QHS SADAF Administration Sevelamer Carbonate 800 mg 07/24/20 17:00 07/29/20 09:01 Sevelamer Carbonate 800 Mg Tab PO 800 mg TIDWM SADAF Administration Sodium Chloride 10 ml 07/24/20 12:30 07/28/20 23:22 Sodium Chloride 0.9% 10 Ml Flush Syringe IV Not Given BID SADAF Sodium Chloride 10 ml 07/24/20 12:30 07/24/20 12:39 Sodium Chloride 0.9% 10 Ml Flush Syringe IV 10 ml PRN PRN Administration LINE FLUSH Trazodone HCl 50 mg 07/24/20 22:00 07/28/20 23:20 Trazodone 50 Mg Tab PO 50 mg QHS SADAF Administration
[2020-07-29] MEDS: LOSARTAN 50 MG TAB PO SCH (10:02)
[2020-07-29] MEDS: FOLIC ACID/VIT B COMP W-C 1 MG (RENAL CAPS) PO SCH (10:03)
[2020-07-29] MEDS: OMEGA-3 FATTY ACIDS/FISH OIL 1 GRAM CAP PO SCH (10:03)
[2020-07-29] MEDS: FENOFIBRATE 145 MG TAB PO SCH (10:03)
[2020-07-29] MEDS: DOXAZOSIN 4 MG TAB PO SCH (10:03)
[2020-07-29] MEDS: allopurinoL 100 MG TAB PO SCH (10:04)
[2020-07-29] MEDS: carvediloL 6.25 MG TAB PO SCH ×2 (10:04→22:16)
[2020-07-29] MEDS: MULTIVITAMINS,THER W-MINERALS TAB PO SCH (10:04)
[2020-07-29] MEDS: FERROUS SULFATE 325 MG TAB PO SCH ×2 (10:04→22:07)
--- NOTE | 2020-07-29 11:06 | XRay Report ---
CHEST 1 VIEW 07/29/2020 10:31 AM INDICATION / CLINICAL INFORMATION: hypoxia. COMPARISON: Chest one view from 07/04/2019 FINDINGS: SUPPORT DEVICES: A right internal jugular vein PermCath terminates over the mid SVC. HEART / MEDIASTINUM: Stable. LUNGS / PLEURA: Increased right pleural-parenchymal opacities. Probable small left pleural effusion w ith associated mild left basilar opacities. No pneumothorax. ADDITIONAL FINDINGS: No significant additional findings. IMPRESSION: Increased bilateral pleural-parenchymal opacities with additional findings as above. Signer Name: Jose Raul Lara MD Signed: 07/29/2020 11:01 AM Workstation Name: [id number]
--- NOTE | 2020-07-29 12:18 | Progress Note ---
Assessment and Plan Assessment and plan: 80 YO Male with ESRD on HD (M, W, F), HTN, DM, Vascular Dementia, Cerebral Atherosclerosis presents to ED for evaluation. Patient is confused and unable to provide detailed history at time of exam. Patient caregiver is at bedside during exam and interview and provides history. As per the patient's the patient has experienced increased weakness and confusion over the past 1 month with increased bedbound status. Patient was seen and evaluated by his vascular surgeon today and was found to have left foot cellulitis. Patient was instructed to seek further care at [facility]. Patient transported to [facility] via private vehicle for further care and evaluation of the aforementioned symptoms. The patient was seen and evaluated in the emergency department. All lab and imaging studies reviewed. Patient found to have end-stage renal disease, left foot cellulitis complicated by systemic inflammatory response syndrome, as well as peripheral vascular disease. Patient admitted to medical floor and initiated on IV antibiotic therapy. Nephrology team consulted in ED. Vascular surgery team consulted in ED. No further history is obtainable. No reports of fever, chills, chest pain, palpitation, productive cough, skin rash, syncope, trauma, recent ill contacts, or known exposure to COVID-19. Patient is unable to provide history but has a positive gag reflex and is able to protect his airway without difficulty at the time my evaluation. Prior admission on 07/05/2019 reviewed. All medication listed at time of admission has been reconciled. Advanced care planning conducted in ED. CT: Head: Negative for acute pathology. 33: Discussed with the IR, patient with new onset Altered mental status from the last time they saw the patient. Will begin work-up for possible underlying sepsis etiology or source unknown at this time. Will obtain ID consulted and Neurology. Continue abx, attempted to reach family. Concern for stroke is low but considering hx of vasculopathy will obtain Neurolo gy Will also obtain wound consultation. 3/4: Some improvement noted with initiation of antibiotics. We will continue current management patient continues on hemodialysis. Will await further vascular improvement as patient is beginning to show some improvement. Discussed with case management. Apparently the person that came with the patient is not the patient's but a caregiver H&P portion of this note has been corrected. Continue wound care and every 2 hours turns. 5: Continue current management plan. Vascular to re-evaluate. Continue abx. MRI with no acute pathology. Agree with the D5 as patient still has some intermittent confusion. Continue to monitor. Speech evaluation for swallow management. 07/28: Patient clinically stable, continue supportive care, abx, awaiting full vascular input. cONTINUE D5 for now. 07/29: We will give patient dose of Lasix, get a chest x-ray. Discussed with nursing staff could be that the patient was appear hypoxic due to cold extremities. Will obtain an ABG. We will also obtain a pulmonary consult for clearance for anticipated vascular procedure in a.m. (1) Sepsis Current Visit: Yes Status: Acute Plan to address problem: CBC, CMP, empiric IV antibiotic therapy x1 dose, repeat CBC in a.m. (2) End stage renal disease Current Visit: No Status: Acute Plan to address problem: Nephrology team consulted in ED, dialysis as per renal team. (3) Cellulitis/ left first digit gangrene Current Visit: Yes Status: Acute Qualifiers: Site of cellulitis of extremity: lower extremity Laterality: left Plan to address problem: CBC, CMP, IV antibiotic therapy, supportive care, wound care consulted. (4) Peripheral vascular disease Current Visit: Yes Status: Acute Plan to address problem: Vascular surgery consulted, continue medical management. (5) Acute metabolic encephalopathy Current Visit: No Status: Acute Plan to address problem: CT head, neuro check, seizure precautions, aspiration precautions, fall precaut ions. (6) Vascular dementia Current Visit: Yes Status: Acute Qualifiers: Dementia behavioral disturbance: without behavioral disturbance Qualified Code(s): F01.50 - Vascular dementia without behavioral disturbance Plan to address problem: Verbal prompting, verbal redirection, benzodiazepine therapy as clinically indicated. (7) Cerebral atherosclerosis Current Visit: Yes Status: Acute Plan to address problem: Antiplatelet therapy, risk factor reduction, supportive care. (8)Moderate protein calorie malnutrition (9) acute hypoxia with respiratory failure (10) Stage 1 pressure ulcer sacrum (10) Advance care planning Current Visit: No Status: Acute Plan to address problem: Disease education conducted, care plan discussed, diagnosis discussed, patient is full code, patient knowledges understanding and agreement with care plan, +30 minutes. (11) DVT prophylaxis Current Visit: No Status: Acute Plan to address problem: SCD to bilateral lower extremities while in bed, prophylactic anticoagulation. History Interval history: Patient seen and examined resting comfortably mental status improved this morning. Nursing staff reported Hypoxia earlier patient was placed on VM but now back to nasal cannula Hospitalist Physical - Physical exam Narrative exam: General appearance: Present: mild in no distress distress, cachectic - EENT Eyes: Present: PERRL ENT: hearing intact, clear oral mucosa - Neck Neck: Present: supple, normal ROM - Respiratory Respiratory effort: normal Respiratory: bilateral: CTA - Cardiovascular Heart Sounds: Present: S1 & S2. Absent: rub, click - Extremities Extremities: pulses symmetrical, No edema Peripheral Pulses: within normal limits - Abdominal General gastrointestinal: Present: soft, non-tender, non-distended, normal bowel sounds Male genitourinary: Present: normal - Integumentary Integumentary: Present:multiple ischemic necrotic lesions. , warm, dry - Musculoskeletal Musculoskeletal: generalized weakness - Psychiatric Psychiatric: improving although still with some intermittent confusion - Neurologic Neurologic: CNII-XII intact, no focal deficits, moves all extremities, no gait normal - Constitutional Vitals: Temp Pulse Resp BP Pulse Ox 98 F 51 L 18 144/63 95 07/29/20 04:00 07/29/20 10:04 07/29/20 04:00 07/29/20 10:04 07/29/20 04:00 General appearance: Present: no acute distress Results - Labs CBC & Chem 7: 07/27/20 05:21 07/27/20 05:21 Labs: Laboratory Last Values WBC 11.5 K/mm3 (4.5-11.0) H 07/27/20 05:21 RBC 3.16 M/mm3 (3.65-5.03) L 07/27/20 05:21 Hgb 10.0 gm/dl (11.8-15.2) L 07/27/20 05:21 Hct 29.8 % (35.5-45.6) L 07/27/20 05:21 MCV 95 fl (84-94) H 07/27/20 05:21 MCH 32 pg (28-32) 07/27/20 05:21 MCHC 34 % (32-34) 07/27/20 05:21 RDW 14.7 % (13.2-15.2) 07/27/20 05:21 Plt Count 197 K/mm3 (140-440) 07/27/20 05:21 Lymph % (Auto) 9.0 % (13.4-35.0) L 07/25/20 05:42 [place] % (Auto) 6.9 % (0.0-7.3) 07/25/20 05:42 Eos % (Auto) 0.9 % (0.0-4.3) 07/25/20 05:42 Baso % (Auto) 0.6 % (0.0-1.8) 07/25/20 05:42 Lymph # (Auto) 1.0 K/mm3 (1.2-5.4) L 07/25/20 05:42 [place] # (Auto) 0.8 K/mm3 (0.0-0.8) 07/25/20 05:42 Eos # (Auto) 0.1 K/mm3 (0.0-0.4) 07/25/20 05:42 Baso # (Auto) 0.1 K/mm3 (0.0-0.1) 07/25/20 05:42 Seg Neutrophils % 82.6 % (40.0-70.0) H 07/25/20 05:42 Seg Neutrophils # 9.4 K/mm3 (1.8-7.7) H 07/25/20 05:42 PT 13.5 Sec. (12.2-14.9) 07/24/20 08:40 INR 1.04 (0.87-1.13) 07/24/20 08:40 APTT 45.0 Sec. (24.2-36.6) H 07/24/20 08:40 Sodium 138 mmol/L (137-145) 07/27/20 05:21 Potassium 4.5 mmol/L (3.6-5.0) 07/27/20 05:21 Chloride 100.9 mmol/L (98-107) 07/27/20 05:21 Carbon Dioxide 27 mmol/L (22-30) 07/27/20 05:21 Anion Gap 15 mmol/L 07/27/20 05:21 BUN 45 mg/dL (9-20) H 07/27/20 05:21 Creatinine 5.6 mg/dL (0.8-1.3) H 07/27/20 05:21 Estimated GFR 10 ml/min 07/27/20 05:21 BUN/Creatinine Ratio 8 % 07/27/20 05:21 Glucose 82 mg/dL (75-100) 07/27/20 05:21 POC Glucose 117 mg/dL (70-105) H 07/29/20 11:08 Lactic Acid 0.90 mmol/L (0.7-2.0) 07/24/20 10:20 Calcium 8.6 mg/dL (8.4-10.2) 07/27/20 05:21 Prealbumin 0.116 g/L (0.200-0.400) L 07/27/20 16:25 Vitamin B12 980.0 pg/mL (211-911) H 07/27/20 16:25 Folate 12.73 ng/mL (7.3-26.0) 07/27/20 16:25 Nasal Screen MRSA (PCR) Negative (Negative) 07/24/20 Unknown Random Vancomycin 16.3 ug/mL (0-40.0) 07/26/20 05:25 Hepatitis A IgM Ab Non-reactive (NonReactive) 07/25/20 15:30 Hep Bs Antigen Non-reactive (Negative) 07/25/20 15:30 Hep B Core IgM Ab Non-reactive (NonReactive) 07/25/20 15:30 Hepatitis C Antibody Non-reactive (NonReactive) 07/25/20 15:30 Microbiology: Microbiology 07/24/20 10:20 Peripheral/Venous Blood Culture - Final NO GROWTH AFTER 5 DAYS 07/24/20 10:20 Peripheral/Venous Blood Culture - Final NO GROWTH AFTER 5 DAYS [place]/IV: Voiding Method Condom Catheter Active Medications - Current Medications Current Medications: Generic Name Dose Route Start Last Admin Trade Name Freq PRN Reason Stop Dose Admin Acetaminophen 650 mg 07/24/20 12:34 Acetaminophen 325 Mg Tab PO Q4H PRN Pain MILD(1-3)/Fever >100.5/ANDRADE Albuterol 2.5 mg 07/24/20 12:30 Albuterol 2.5 Mg/3 Ml Nebu IH Q4HRT PRN Shortness Of Breath Albuterol/Ipratropium 1 ampul 07/29/20 11:00 Ipratropium/Albuterol Sulfate 3 Ml Ampul.Neb IH TIDRT SADAF Allopurinol 100 mg 07/25/20 10:00 07/29/20 10:04 Allopurinol 100 Mg Tab PO 100 mg QDAY SADAF Administration Calcium Acetate 667 mg 07/24/20 17:00 07/29/20 09:01 Calcium Acetate 667 Mg Cap PO 667 mg TIDWM SADAF Administration Carvedilol 6.25 mg 07/24/20 22:00 07/29/20 10:04 Carvedilol 6.25 Mg Tab PO 6.25 mg BID SADAF Administration Doxazosin Mesylate 4 mg 07/26/20 10:00 07/29/20 10:03 Doxazosin 4 Mg Tab PO 4 mg DAILY SADAF Administration Epoetin Jose 20,000 unit 07/26/20 10:00 07/26/20 14:07 Epoetin Jose 20,000 Unit/1 Ml Inj SUB-Q 20,000 unit Th SADAF Administration Fenofibrate 145 mg 07/25/20 10:00 07/29/20 10:03 Fenofibrate 145 Mg Tab PO 145 mg DAILY SADAF Administration Ferrous Sulfate 325 mg 07/24/20 22:00 07/29/20 10:04 Ferrous Sulfate 325 Mg Tab PO 325 mg BID SADAF Administration Fish Oil 1,000 mg 07/25/20 10:00 07/29/20 10:03 [place]-3 Fatty Acids/Fish Oil 1 Gram Cap PO 1,000 mg DAILY SADAF Administration Gabapentin 100 mg 07/24/20 22:00 07/29/20 06:25 Gabapentin 100 Mg Cap PO 100 mg Q8HR SADAF Administration Hydralazine HCl 50 mg 07/28/20 22:00 07/29/20 06:24 Hydralazine 25 Mg Tab PO 50 mg Q8HR SADAF Administration Hydralazine HCl 10 mg 07/28/20 16:22 07/28/20 19:01 Hydralazine 20 Mg/1 Ml Inj IV 10 mg Q6H PRN Administration Blood Pressure Piperacillin Sod/Tazobactam Sod 2.25 gm in 50 mls @ 100 mls/hr 07/25/20 11:00 07/29/20 11:20 Zosyn/Ns 2.25 Gm/50ml IV 100 mls/hr Q8H SADAF Administration Sodium Chloride 100 mls @ 999 mls/hr 07/25/20 14:30 Nacl 0.9% IV PETTY PRN Hypotension Losartan Potassium 100 mg 07/25/20 10:00 07/29/20 10:02 Losartan 50 Mg Tab PO 100 mg QDAY SADAF Administration Montelukast Sodium 10 mg 07/24/20 18:00 07/28/20 17:24 Montelukast 10 Mg Tab PO 10 mg QPM SADAF Administration Morphine Sulfate 2 mg 07/24/20 12:30 Morphine 2 Mg/1 Ml Inj IV Q6H PRN Pain , Severe (7-10) Multivit/Ca Carb/B Cmplx/FA/Prenat 1 cap 07/26/20 10:00 07/29/20 10:03 Folic Acid/Vit B Comp W-C 1 Mg (Renal Caps) PO 1 cap QDAY SADAF Administration Multivitamins/Minerals 1 each 07/25/20 10:00 07/29/20 10:04 Multivitamins,Ther W-Minerals Tab PO 1 each QDAY SADAF Administration Ondansetron HCl 4 mg 07/24/20 12:00 Ondansetron 4 Mg/2 Ml Inj IV Q8H PRN Nausea And Vomiting Oxycodone/Acetaminophen 1 tab 07/24/20 12:30 07/25/20 00:30 Oxycodone /Acetaminophen 5-325mg Tab PO 1 tab Q6H PRN Administration Pain, Moderate (4-6) Pravastatin Sodium 80 mg 07/24/20 22:00 07/28/20 23:22 Pravastatin 80 Mg Tab PO 80 mg QHS SADAF Administration Sevelamer Carbonate 800 mg 07/24/20 17:00 07/29/20 09:01 Sevelamer Carbonate 800 Mg Tab PO 800 mg TIDWM SADAF Administration Sodium Chloride 10 ml 07/24/20 12:30 07/29/20 10:04 Sodium Chloride 0.9% 10 Ml Flush Syringe IV Not Given BID SADAF Sodium Chloride 10 ml 07/24/20 12:30 07/24/20 12:39 Sodium Chloride 0.9% 10 Ml Flush Syringe IV 10 ml PRN PRN Administration LINE FLUSH Trazodone HCl 50 mg 07/24/20 22:00 07/28/20 23:20 Trazodone 50 Mg Tab PO 50 mg QHS SADAF Administration Nutrition/Malnutrition Assess - Dietary Evaluation Nutrition/Malnutrition Findings: Nutrition Notes Start: 07/25/20 13:43 Freq: Status: Active Protocol: Document 07/26/20 13:46 AL (Rec: 07/26/20 13:54 AL [id number]) Co-Sign 07/26/20 13:46 LP Nutrition Notes Initial or Follow up Reassessment Current Diagnosis CKD (stage V CKD),Decubitus( Pressure Ulcer),Diabetes Other Pertinent Diagnosis on HD, Cellulitis, Gangrene, Cerebral Atherosclerosis, SIRS Current Diet Cardiac Diet Labs/Tests POC BG 65 Pertinent Medications Reviewed Height 5 ft 9 in Weight 72.57 kg [place] Body Weight (kg) 72.72 BMI 23.6 Weight Status Appropriate Subjective/Other Information FU for intakes and ONS tolerance. Pt reports appetite is good and food is good. Pt has AMS. Breakfast and Nepro supplement untouched on the table. According to 3/3 ADL, pt consumed 50% of breakfast, lunch, and dinner) Percent of energy/protein needs met: 57%/49% Burn Absent Trauma Absent Minimum of two criteria No #3 Nutrition Diagnosis Inadequate energy intake Etiology AMS advanced age As Evidenced by Signs and Symptoms pt meets 57%/49% of estimated energy/protein needs #2 Nutrition Diagnosis Increased nutrient needs ( specify in comment below) Comments: protein Diagnosis Progress(for reassessment Continues documentation) #1 Nutrition Diagnosis Predicted suboptimal energy intake Etiology AMS advanced age As Evidenced by Signs and Symptoms pt meets 57%/49% of estimated energy/protein needs Diagnosis Progress(for reassessment Resolved documentation) Is patient on ventilator? No Is Patient Ambulatory and/or Out of Bed No REE-([facility]-confined to bed) 3242.224 Calculation Used for Recommendations [facility] Additional Notes PRO needs: >87g (>1.2 g/kg) Fluid needs: Urine output + 1000 mL or per MD Nutrition Intervention Change Diet Order: Continue Cardiac Diet Add Supplement/Snack (indicate name/kcal Nepro daily /protein ) Provides kCal: 425 Provides Protein (gm) 19 Goal #1 Meet at least 75% of estimated energy and protein needs via diet and ONS Goal #2 Wound healing Anticipated Discharge Needs: Renal/Consistent CHO Diet Follow-Up By: 07/30/20 Additional Comments F/U intakes, ONS tolerance
[2020-07-29] MEDS: IPRATROPIUM/ALBUTEROL SULFATE 3 ML AMPUL.NEB IH SCH ×3 (12:31→19:48)
[2020-07-29 13:09] LABS: ABG HCO3 24.3 mmol/L (20.0-26.0); ABG Methemoglobin 0.6 % (0.0-1.5); ABG Oxygen Saturation 98.3 % (95.0-99.0); ABG PCO2 48.6 mm Hg; ABG PH 7.316 pH Units (7.350-7.450)
[2020-07-29] MEDS: MONTELUKAST 10 MG TAB PO SCH (17:51)
[2020-07-29] MEDS: PRAVASTATIN 80 MG TAB PO SCH (22:07)
[2020-07-29] MEDS: traZODone 50 MG TAB PO SCH (22:07)
--- NOTE | 2020-07-29 22:35 | Consultation ---
History of Present Illness Consult date: 07/29/20 Requesting physician: TANNER JIMENES Reason for consult: dyspnea, hypoxemia History of present illness: Pt. presented with AMS. Has dry gangrene of L toe, needs revascularization. + Developing SOB and mild hypoxia. No cough, chest pain, sputum, hemoptysis. IVFs infusing. Active Medications Acetaminophen (Acetaminophen 325 Mg Tab) 650 mg PO Q4H PRN PRN Reason: Pain MILD(1-3)/Fever >100.5/ANDRADE Albuterol (Albuterol 2.5 Mg/3 Ml Nebu) 2.5 mg IH Q4HRT PRN PRN Reason: Shortness Of Breath Albuterol/Ipratropium (Ipratropium/Albuterol Sulfate 3 Ml Ampul.Neb) 1 ampul IH TIDRT [facility] Last Admin: 07/29/20 19:48 Dose: 1 ampul Documented by: Allopurinol (Allopurinol 100 Mg Tab) 100 mg PO QDAY [facility] Last Admin: 07/29/20 10:04 Dose: 100 mg Documented by: Calcium Acetate (Calcium Acetate 667 Mg Cap) 667 mg PO TIDWM [facility] Last Admin: 07/29/20 17:39 Dose: 667 mg Documented by: Carvedilol (Carvedilol 6.25 Mg Tab) 6.25 mg PO BID [facility] Last Admin: 07/29/20 22:16 Dose: 6.25 mg Documented by: Doxazosin Mesylate (Doxazosin 4 Mg Tab) 4 mg PO DAILY [facility] Last Admin: 07/29/20 10:03 Dose: 4 mg Documented by: Epoetin Jose (Epoetin Jose 20,000 Unit/1 Ml Inj) 20,000 unit SUB-Q Th [facility] Last Admin: 07/26/20 14:07 Dose: 20,000 unit Documented by: Fenofibrate (Fenofibrate 145 Mg Tab) 145 mg PO DAILY [facility] Last Admin: 07/29/20 10:03 Dose: 145 mg Documented by: Ferrous Sulfate (Ferrous Sulfate 325 Mg Tab) 325 mg PO BID [facility] Last Admin: 07/29/20 22:07 Dose: 325 mg Documented by: Fish Oil (Baker-3 Fatty Acids/Fish Oil 1 Gram Cap) 1,000 mg PO DAILY [facility] Last Admin: 07/29/20 10:03 Dose: 1,000 mg Documented by: Gabapentin (Gabapentin 100 Mg Cap) 100 mg PO Q8HR [facility] Last Admin: 07/29/20 20:00 Dose: 100 mg Documented by: Hydralazine HCl (Hydralazine 25 Mg Tab) 50 mg PO Q8HR [facility] Last Admin: 07/29/20 22:16 Dose: 50 mg Documented by: Hydralazine HCl (Hydralazine 20 Mg/1 Ml Inj) 10 mg IV Q6H PRN PRN Reason: Blood Pressure Last Admin: 07/28/20 19:01 Dose: 10 mg Documented by: Piperacillin Sod/Tazobactam Sod (Zosyn/Ns 2.25 Gm/50ml) 2.25 gm in 50 mls @ 100 mls/hr IV Q8H [facility] Last Admin: 07/29/20 18:48 Dose: 100 mls/hr Documented by: Sodium Chloride (Nacl 0.9%) 100 mls @ 999 mls/hr IV PETTY PRN PRN Reason: Hypotension Losartan Potassium (Losartan 50 Mg Tab) 100 mg PO QDAY [facility] Last Admin: 07/29/20 10:02 Dose: 100 mg Documented by: Montelukast Sodium (Montelukast 10 Mg Tab) 10 mg PO QPM [facility] Last Admin: 07/29/20 17:51 Dose: 10 mg Documented by: Morphine Sulfate (Morphine 2 Mg/1 Ml Inj) 2 mg IV Q6H PRN PRN Reason: Pain , Severe (7-10) Multivit/Ca Carb/B Cmplx/FA/Prenat (Folic Acid/Vit B Comp W-C 1 Mg (Renal Caps)) 1 cap PO QDAY [facility] Last Admin: 07/29/20 10:03 Dose: 1 cap Documented by: Multivitamins/Minerals (Multivitamins,Ther W-Minerals Tab) 1 each PO QDAY [facility] Last Admin: 07/29/20 10:04 Dose: 1 each Documented by: Ondansetron HCl (Ondansetron 4 Mg/2 Ml Inj) 4 mg IV Q8H PRN PRN Reason: Nausea And Vomiting Oxycodone/Acetaminophen (Oxycodone /Acetaminophen 5-325mg Tab) 1 tab PO Q6H PRN PRN Reason: Pain, Moderate (4-6) Last Admin: 07/25/20 00:30 Dose: 1 tab Documented by: Pravastatin Sodium (Pravastatin 80 Mg Tab) 80 mg PO QHS [facility] Last Admin: 07/29/20 22:07 Dose: 80 mg Documented by: Sevelamer Carbonate (Sevelamer Carbonate 800 Mg Tab) 800 mg PO TIDWM [facility] Last Admin: 07/29/20 17:39 Dose: 800 mg Documented by: Sodium Chloride (Sodium Chloride 0.9% 10 Ml Flush Syringe) 10 ml IV BID [facility] Last Admin: 07/29/20 22:08 Dose: 10 ml Documented by: Sodium Chloride (Sodium Chloride 0.9% 10 Ml Flush Syringe) 10 ml IV PRN PRN PRN Reason: LINE FLUSH Last Admin: 07/24/20 12:39 Dose: 10 ml Documented by: Trazodone HCl (Trazodone 50 Mg Tab) 50 mg PO QHS [facility] Last Admin: 07/29/20 22:07 Dose: 50 mg Documented by: Past History Past Medical History: diabetes, ESRD, hypertension, PVD Past Surgical History: Other (Dialysis access) Social history: single, lives with family. denies: smoking, alcohol abuse, pres cription drug abuse Family history: diabetes, hypertension Medications and Allergies Allergies Allergy/AdvReac Type Severity Reaction Status Date / Time No Known Allergies Allergy Verified 05/01/15 08:52 Home Medications Medication Instructions Recorded Confirmed Last Taken Type Calcium Acetate [Phoslo] 667 mg PO TID 07/24/20 07/24/20 Unknown History Fenofibrate 160 mg PO QDAY 07/24/20 07/24/20 Unknown History Gabapentin [Neurontin] 100 mg PO Q8HR 07/24/20 07/24/20 Unknown History HYDROcodone/ACETAMINOPHEN 1 each PO Q8HR PRN 07/24/20 07/24/20 Unknown History [Hydrocodone-Acetamin 5-300 mg] Losartan Potassium 100 mg PO QDAY 07/24/20 07/24/20 Unknown History Montelukast [Singulair] 10 mg PO QPM 07/24/20 07/24/20 Unknown History Sevelamer Carbonate [Renvela] 800 mg PO TIDWM 07/24/20 07/24/20 Unknown History Simvastatin 40 mg PO QDAY 07/24/20 07/24/20 Unknown History allopurinoL [Zyloprim] 100 mg PO QDAY 07/24/20 07/24/20 Unknown History traZODone [Desyrel] 50 mg PO QHS 07/24/20 07/24/20 Unknown History traZODone [Desyrel] 50 mg PO QHS 07/24/20 07/24/20 Unknown History Active Meds: Active Medications Acetaminophen (Acetaminophen 325 Mg Tab) 650 mg PO Q4H PRN PRN Reason: Pain MILD(1-3)/Fever >100.5/ANDRADE Albuterol (Albuterol 2.5 Mg/3 Ml Nebu) 2.5 mg IH Q4HRT PRN PRN Reason: Shortness Of Breath Albuterol/Ipratropium (Ipratropium/Albuterol Sulfate 3 Ml Ampul.Neb) 1 ampul IH TIDRT [facility] Last Admin: 07/29/20 19:48 Dose: 1 ampul Documented by: Allopurinol (Allopurinol 100 Mg Tab) 100 mg PO QDAY [facility] Last Admin: 07/29/20 10:04 Dose: 100 mg Documented by: Calcium Acetate (Calcium Acetate 667 Mg Cap) 667 mg PO TIDWM [facility] Last Admin: 07/29/20 17:39 Dose: 667 mg Documented by: Carvedilol (Carvedilol 6.25 Mg Tab) 6.25 mg PO BID [facility] Last Admin: 07/29/20 22:16 Dose: 6.25 mg Documented by: Doxazosin Mesylate (Doxazosin 4 Mg Tab) 4 mg PO DAILY [facility] Last Admin: 07/29/20 10:03 Dose: 4 mg Documented by: Epoetin Jose (Epoetin Jose 20,000 Unit/1 Ml Inj) 20,000 unit SUB-Q Th [facility] Last Admin: 07/26/20 14:07 Dose: 20,000 unit Documented by: Fenofibrate (Fenofibrate 145 Mg Tab) 145 mg PO DAILY [facility] Last Admin: 07/29/20 10:03 Dose: 145 mg Documented by: Ferrous Sulfate (Ferrous Sulfate 325 Mg Tab) 325 mg PO BID [facility] Last Admin: 07/29/20 22:07 Dose: 325 mg Documented by: Fish Oil (Baker-3 Fatty Acids/Fish Oil 1 Gram Cap) 1,000 mg PO DAILY [facility] Last Admin: 07/29/20 10:03 Dose: 1,000 mg Documented by: Gabapentin (Gabapentin 100 Mg Cap) 100 mg PO Q8HR [facility] Last Admin: 07/29/20 20:00 Dose: 100 mg Documented by: Hydralazine HCl (Hydralazine 25 Mg Tab) 50 mg PO Q8HR [facility] Last Admin: 07/29/20 22:16 Dose: 50 mg Documented by: Hydralazine HCl (Hydralazine 20 Mg/1 Ml Inj) 10 mg IV Q6H PRN PRN Reason: Blood Pressure Last Admin: 07/28/20 19:01 Dose: 10 mg Documented by: Piperacillin Sod/Tazobactam Sod (Zosyn/Ns 2.25 Gm/50ml) 2.25 gm in 50 mls @ 100 mls/hr IV Q8H [facility] Last Admin: 07/29/20 18:48 Dose: 100 mls/hr Documented by: Sodium Chloride (Nacl 0.9%) 100 mls @ 999 mls/hr IV PETTY PRN PRN Reason: Hypotension Losartan Potassium (Losartan 50 Mg Tab) 100 mg PO QDAY [facility] Last Admin: 07/29/20 10:02 Dose: 100 mg Documented by: Montelukast Sodium (Montelukast 10 Mg Tab) 10 mg PO QPM [facility] Last Admin: 07/29/20 17:51 Dose: 10 mg Documented by: Morphine Sulfate (Morphine 2 Mg/1 Ml Inj) 2 mg IV Q6H PRN PRN Reason: Pain , Severe (7-10) Multivit/Ca Carb/B Cmplx/FA/Prenat (Folic Acid/Vit B Comp W-C 1 Mg (Renal Caps)) 1 cap PO QDAY [facility] Last Admin: 07/29/20 10:03 Dose: 1 cap Documented by: Multivitamins/Minerals (Multivitamins,Ther W-Minerals Tab) 1 each PO QDAY [facility] Last Admin: 07/29/20 10:04 Dose: 1 each Documented by: Ondansetron HCl (Ondansetron 4 Mg/2 Ml Inj) 4 mg IV Q8H PRN PRN Reason: Nausea And Vomiting Oxycodone/Acetaminophen (Oxycodone /Acetaminophen 5-325mg Tab) 1 tab PO Q6H PRN PRN Reason: Pain, Moderate (4-6) Last Admin: 07/25/20 00:30 Dose: 1 tab Documented by: Pravastatin Sodium (Pravastatin 80 Mg Tab) 80 mg PO QHS [facility] Last Admin: 07/29/20 22:07 Dose: 80 mg Documented by: Sevelamer Carbonate (Sevelamer Carbonate 800 Mg Tab) 800 mg PO TIDWM [facility] Last Admin: 07/29/20 17:39 Dose: 800 mg Documented by: Sodium Chloride (Sodium Chloride 0.9% 10 Ml Flush Syringe) 10 ml IV BID [facility] Last Admin: 07/29/20 22:08 Dose: 10 ml Documented by: Sodium Chloride (Sodium Chloride 0.9% 10 Ml Flush Syringe) 10 ml IV PRN PRN PRN Reason: LINE FLUSH Last Admin: 07/24/20 12:39 Dose: 10 ml Documented by: Trazodone HCl (Trazodone 50 Mg Tab) 50 mg PO QHS [facility] Last Admin: 07/29/20 22:07 Dose: 50 mg Documented by: Review of Systems All systems: negative Physical Examination Vital signs: Vital Signs Resp 14 07/24/20 08:16 General appearance: no acute distress, alert Eyes: non-icteric ENT: oropharynx moist Neck: supple Effort: normal Ascultation: Bilateral: clear (anteriorly) Cardiovascular: regular rate and rhythm (no mrg) Gastrointestinal: normoactive bowel sounds, soft Integumentary: other (dry gangrene 1st toe on L) Extremities: no cyanosis, no edema normal mental status, non-focal exam, pupils equal and round mood appropriate, affect normal Results - Laboratory Findings CBC and BMP: 07/27/20 05:21 07/27/20 05:21 ABG ABG pH 7.316 pH Units (7.350-7.450) L 07/29/20 12:55 ABG pCO2 48.6 mm Hg 07/29/20 12:55 ABG pO2 131.0 mm Hg (80.0-90.0) H 07/29/20 12:55 ABG O2 Saturation 98.3 % (95.0-99.0) 07/29/20 12:55 PT/INR, D-dimer PT 13.5 Sec. (12.2-14.9) 07/24/20 08:40 INR 1.04 (0.87-1.13) 07/24/20 08:40 Abnormal lab findings: Abnormal Labs 07/24/20 07/24/20 07/24/20 08:40 08:40 08:40 WBC 11.3 H RBC 3.40 L Hgb 11.0 L Hct 33.0 L MCV 97 H RDW 15.6 H Lymph % (Auto) Lymph # (Auto) Seg Neutrophils % Seg Neutrophils # APTT 45.0 H ABG pH ABG pO2 ABG Hemoglobin Potassium BUN 38 H Creatinine 4.7 H Glucose POC Glucose Prealbumin Vitamin B12 07/24/20 07/24/20 07/24/20 15:41 15:57 20:52 WBC RBC Hgb Hct MCV RDW Lymph % (Auto) Lymph # (Auto) Seg Neutrophils % Seg Neutrophils # APTT ABG pH ABG pO2 ABG Hemoglobin Potassium BUN Creatinine Glucose POC Glucose 18 L 128 H 108 H Prealbumin Vitamin B12 07/25/20 07/25/20 07/25/20 05:42 05:42 07:43 WBC 11.4 H RBC 3.02 L Hgb 9.5 L Hct 29.8 L MCV 99 H RDW 15.9 H Lymph % (Auto) 9.0 L Lymph # (Auto) 1.0 L Seg Neutrophils % 82.6 H Seg Neutrophils # 9.4 H APTT ABG pH ABG pO2 ABG Hemoglobin Potassium 5.1 H BUN 53 H Creatinine 6.1 H Glucose 122 H POC Glucose 108 H Prealbumin Vitamin B12 07/25/20 07/25/20 07/26/20 11:18 21:17 11:35 WBC RBC Hgb Hct MCV RDW Lymph % (Auto) Lymph # (Auto) Seg Neutrophils % Seg Neutrophils # APTT ABG pH ABG pO2 ABG Hemoglobin Potassium BUN Creatinine Glucose POC Glucose 133 H 68 L 45 L Prealbumin Vitamin B12 07/26/20 07/26/20 07/26/20 12:27 12:51 16:27 WBC RBC Hgb Hct MCV RDW Lymph % (Auto) Lymph # (Auto) Seg Neutrophils % Seg Neutrophils # APTT ABG pH ABG pO2 ABG Hemoglobin Potassium BUN Creatinine Glucose POC Glucose 65 L 124 H 52 L Prealbumin Vitamin B12 07/26/20 07/27/20 07/27/20 18:13 05:21 05:21 WBC 11.5 H RBC 3.16 L Hgb 10.0 L Hct 29.8 L MCV 95 H RDW Lymph % (Auto) Lymph # (Auto) Seg Neutrophils % Seg Neutrophils # APTT ABG pH ABG pO2 ABG Hemoglobin Potassium BUN 45 H Creatinine 5.6 H Glucose POC Glucose 147 H Prealbumin Vitamin B12 07/27/20 07/27/20 07/27/20 07:37 09:10 16:25 WBC RBC Hgb Hct MCV RDW Lymph % (Auto) Lymph # (Auto) Seg Neutrophils % Seg Neutrophils # APTT ABG pH ABG pO2 ABG Hemoglobin Potassium BUN Creatinine Glucose POC Glucose 41 L 129 H Prealbumin 0.116 L Vitamin B12 07/27/20 07/27/20 07/28/20 16:25 21:16 11:41 WBC RBC Hgb Hct MCV RDW Lymph % (Auto) Lymph # (Auto) Seg Neutrophils % Seg Neutrophils # APTT ABG pH ABG pO2 ABG Hemoglobin Potassium BUN Creatinine Glucose POC Glucose 123 H 117 H Prealbumin Vitamin B12 980.0 H 07/28/20 07/28/20 07/29/20 15:47 22:07 07:42 WBC RBC Hgb Hct MCV RDW Lymph % (Auto) Lymph # (Auto) Seg Neutrophils % Seg Neutrophils # APTT ABG pH ABG pO2 ABG Hemoglobin Potassium BUN Creatinine Glucose POC Glucose 148 H 119 H 106 H Prealbumin Vitamin B12 07/29/20 07/29/20 11:08 12:55 WBC RBC Hgb Hct MCV RDW Lymph % (Auto) Lymph # (Auto) Seg Neutrophils % Seg Neutrophils # APTT ABG pH 7.316 L ABG pO2 131.0 H ABG Hemoglobin 9.4 L Potassium BUN Creatinine Glucose POC Glucose 117 H Prealbumin Vitamin B12 - Diagnostic Findings Chest x-ray: report reviewed, image reviewed (suspect CHF) Assessment and Plan Imp: 1. Acute hypoxic and hypercapneic respiratory failure 2. Suspect acute CHF 3. ESRD 4. PAD 5. Dry gangrene 6. Altered mental status/metabolic encephalopathy 7. Normocytic anemia Rec: 1. Asked RN to stop IVFs 2. Optimize volume with HD 3. Check Echo 4. Wean O2 to keep sats 88% or > 5. Further plans pending clinical course Plan of care reviewed w/ patient, he understands/agrees Thanks for the consult. Will follow w/ you.
[2020-07-30] MEDS: PIPERACIL-TAZO 2.25 GM/50 ML 2.25 GM/50 ML BAG IV SCH ×3 (02:22→21:52)
[2020-07-30 04:35] LABS: Hematocrit 28.4 % (35.5-45.6); Hemoglobin 9.4 gm/dl (11.8-15.2); Mean Corpuscular HGB Conc 33 % (32-34); Mean Corpuscular Volume 96 fl (84-94); Platelet Count 199 K/mm3 (140-440); Red Blood Count 2.95 M/mm3 (3.65-5.03); Red Cell Distribution Width 14.9 % (13.2-15.2)
[2020-07-30 04:58] LABS: Calcium 8.3 mg/dL (8.4-10.2)
[2020-07-30] MEDS: hydrALAZINE 25 MG TAB PO SCH ×2 (05:54→22:10)
[2020-07-30] MEDS: GABAPENTIN 100 MG CAP PO SCH ×2 (05:55→22:08)
[2020-07-30] MEDS: SEVELAMER CARBONATE 800 MG TAB PO SCH (07:07)
[2020-07-30] MEDS: CALCIUM ACETATE 667 MG CAP PO SCH (07:07)
[2020-07-30] MEDS: IPRATROPIUM/ALBUTEROL SULFATE 3 ML AMPUL.NEB IH SCH ×3 (07:56→22:42)
[2020-07-30] MEDS: carvediloL 6.25 MG TAB PO SCH ×2 (08:08→22:05)
--- NOTE | 2020-07-30 08:10 | Progress Note ---
Assessment and Plan Assessment and plan #End-stage renal disease: Continue with hemodialysis treatment Thursday and Thursday Patient dialysis access is a central venous catheter. Plan for revascularization today #hypertension improved after addition of hydralazine #Diet and nutrition: Patient needs to be on high protein diet, #Volume and electrolyte Stable at this time #Bone mineral disorder: Monitor phosphorus and PTH level periodically, outpatient labs satisfactory #Multiple other complex comorbidities currently being managed by primary team #peripheral arterial disease, worsening gangrene, vascular note reviewed Will continue to follow and make recommendation for renal standpoint Subjective Date of service: 07/30/20 Principal diagnosis: Peripheral vascular disease with gangrene Interval history: Plan for vascular procedure today Patient was seen for his renal issues Nursing, interdisciplinary and consult notes were reviewed Vitals, input and output, medications and labs were reviewed Objective - Exam Narrative Exam: General: No acute distress HEENT: Oral mucosa moist Neck: Supple, no JVD Chest: Clear to auscultation bilaterally Heart: RRR, S1 and S2, no pericardial rub Abdomen: Soft, nontender, no renal bruit Extremity: No peripheral cyanosis, edema. Digital gangrene noted. Neurological: Alert, awake, no asterixis Dermatology: No skin rash Psych: No agitation Musculoskeletal: No joint effusion - Vital Signs Vital signs: Vital Signs - 12hr 07/29/20 07/29/20 07/29/20 20:08 22:16 22:44 Temperature 97.5 F L 97.9 F Pulse Rate 71 73 73 Pulse Rate [ Anterior Bilateral Throughout] Respiratory 18 18 Rate Respiratory Rate [Anterior Bilateral Throughout] Blood Pressure 161/34 167/43 160/60 O2 Sat by Pulse 100 97 Oximetry 07/30/20 07/30/20 07/30/20 05:09 05:54 07:55 Temperature 98.0 F Pulse Rate 63 63 Pulse Rate [ Anterior Bilateral Throughout] Respiratory 18 Rate Respiratory Rate [Anterior Bilateral Throughout] Blood Pressure 161/40 161/40 O2 Sat by Pulse 96 99 Oximetry 07/30/20 07:56 Temperature Pulse Rate Pulse Rate [ 67 Anterior Bilateral Throughout] Respiratory Rate Respiratory 18 Rate [Anterior Bilateral Throughout] Blood Pressure O2 Sat by Pulse Oximetry - Lab 07/30/20 04:17 07/30/20 04:17 Most recent lab results ABG pH 7.316 pH Units (7.350-7.450) L 07/29/20 12:55 ABG pCO2 48.6 mm Hg 07/29/20 12:55 ABG pO2 131.0 mm Hg (80.0-90.0) H 07/29/20 12:55 ABG HCO3 24.3 mmol/L (20.0-26.0) 07/29/20 12:55 ABG O2 Saturation 98.3 % (95.0-99.0) 07/29/20 12:55 Calcium 8.3 mg/dL (8.4-10.2) L 07/30/20 04:17 Medications & Allergies - Medications Allergies/Adverse Reactions: Allergies No Known Allergies Allergy (Verified 05/01/15 08:52) Home Medications: Home Medications Medication Instructions Recorded Confirmed Last Taken Type Calcium Acetate [Phoslo] 667 mg PO TID 07/24/20 07/24/20 Unknown History Fenofibrate 160 mg PO QDAY 07/24/20 07/24/20 Unknown History Gabapentin [Neurontin] 100 mg PO Q8HR 07/24/20 07/24/20 Unknown History HYDROcodone/ACETAMINOPHEN 1 each PO Q8HR PRN 07/24/20 07/24/20 Unknown History [Hydrocodone-Acetamin 5-300 mg] Losartan Potassium 100 mg PO QDAY 07/24/20 07/24/20 Unknown History Montelukast [Singulair] 10 mg PO QPM 07/24/20 07/24/20 Unknown History Sevelamer Carbonate [Renvela] 800 mg PO TIDWM 07/24/20 07/24/20 Unknown History Simvastatin 40 mg PO QDAY 07/24/20 07/24/20 Unknown History allopurinoL [Zyloprim] 100 mg PO QDAY 07/24/20 07/24/20 Unknown History traZODone [Desyrel] 50 mg PO QHS 07/24/20 07/24/20 Unknown History traZODone [Desyrel] 50 mg PO QHS 07/24/20 07/24/20 Unknown History Active Medications: Generic Name Dose Route Start Last Admin Trade Name Freq PRN Reason Stop Dose Admin Acetaminophen 650 mg 07/24/20 12:34 Acetaminophen 325 Mg Tab PO Q4H PRN Pain MILD(1-3)/Fever >100.5/ANDRADE Albuterol 2.5 mg 07/24/20 12:30 Albuterol 2.5 Mg/3 Ml Nebu IH Q4HRT PRN Shortness Of Breath Albuterol/Ipratropium 1 ampul 07/29/20 11:00 07/30/20 07:56 Ipratropium/Albuterol Sulfate 3 Ml Ampul.Neb IH 1 ampul TIDRT SADAF Administration Allopurinol 100 mg 07/25/20 10:00 07/29/20 10:04 Allopurinol 100 Mg Tab PO 100 mg QDAY SADAF Administration Calcium Acetate 667 mg 07/24/20 17:00 07/29/20 17:39 Calcium Acetate 667 Mg Cap PO 667 mg TIDWM SADAF Administration Carvedilol 6.25 mg 07/24/20 22:00 07/29/20 22:16 Carvedilol 6.25 Mg Tab PO 6.25 mg BID SADAF Administration Doxazosin Mesylate 4 mg 07/26/20 10:00 07/29/20 10:03 Doxazosin 4 Mg Tab PO 4 mg DAILY SADAF Administration Epoetin Jose 20,000 unit 07/26/20 10:00 07/26/20 14:07 Epoetin Jose 20,000 Unit/1 Ml Inj SUB-Q 20,000 unit Th SADAF Administration Fenofibrate 145 mg 07/25/20 10:00 07/29/20 10:03 Fenofibrate 145 Mg Tab PO 145 mg DAILY SADAF Administration Ferrous Sulfate 325 mg 07/24/20 22:00 07/29/20 22:07 Ferrous Sulfate 325 Mg Tab PO 325 mg BID SADAF Administration Fish Oil 1,000 mg 07/25/20 10:00 07/29/20 10:03 Wolcott-3 Fatty Acids/Fish Oil 1 Gram Cap PO 1,000 mg DAILY SADAF Administration Gabapentin 100 mg 07/24/20 22:00 07/30/20 05:55 Gabapentin 100 Mg Cap PO 100 mg Q8HR SADAF Administration Hydralazine HCl 50 mg 07/28/20 22:00 07/30/20 05:54 Hydralazine 25 Mg Tab PO 50 mg Q8HR SADAF Administration Hydralazine HCl 10 mg 07/28/20 16:22 07/28/20 19:01 Hydralazine 20 Mg/1 Ml Inj IV 10 mg Q6H PRN Administration Blood Pressure Piperacillin Sod/Tazobactam Sod 2.25 gm in 50 mls @ 100 mls/hr 07/25/20 11:00 07/30/20 02:22 Zosyn/Ns 2.25 Gm/50ml IV 100 mls/hr Q8H SADAF Administration Sodium Chloride 100 mls @ 999 mls/hr 07/25/20 14:30 Nacl 0.9% IV PETTY PRN Hypotension Losartan Potassium 100 mg 07/25/20 10:00 07/29/20 10:02 Losartan 50 Mg Tab PO 100 mg QDAY SADAF Administration Montelukast Sodium 10 mg 07/24/20 18:00 07/29/20 17:51 Montelukast 10 Mg Tab PO 10 mg QPM SADAF Administration Morphine Sulfate 2 mg 07/24/20 12:30 Morphine 2 Mg/1 Ml Inj IV Q6H PRN Pain , Severe (7-10) Multivit/Ca Carb/B Cmplx/FA/Prenat 1 cap 07/26/20 10:00 07/29/20 10:03 Folic Acid/Vit B Comp W-C 1 Mg (Renal Caps) PO 1 cap QDAY SADAF Administration Multivitamins/Minerals 1 each 07/25/20 10:00 07/29/20 10:04 Multivitamins,Ther W-Minerals Tab PO 1 each QDAY SADAF Administration Ondansetron HCl 4 mg 07/24/20 12:00 Ondansetron 4 Mg/2 Ml Inj IV Q8H PRN Nausea And Vomiting Oxycodone/Acetaminophen 1 tab 07/24/20 12:30 07/25/20 00:30 Oxycodone /Acetaminophen 5-325mg Tab PO 1 tab Q6H PRN Administration Pain, Moderate (4-6) Pravastatin Sodium 80 mg 07/24/20 22:00 07/29/20 22:07 Pravastatin 80 Mg Tab PO 80 mg QHS SADAF Administration Sevelamer Carbonate 800 mg 07/24/20 17:00 07/29/20 17:39 Sevelamer Carbonate 800 Mg Tab PO 800 mg TIDWM SADAF Administration Sodium Chloride 10 ml 07/24/20 12:30 07/29/20 22:08 Sodium Chloride 0.9% 10 Ml Flush Syringe IV 10 ml BID SADAF Administration Sodium Chloride 10 ml 07/24/20 12:30 07/24/20 12:39 Sodium Chloride 0.9% 10 Ml Flush Syringe IV 10 ml PRN PRN Administration LINE FLUSH Trazodone HCl 50 mg 07/24/20 22:00 07/29/20 22:07 Trazodone 50 Mg Tab PO 50 mg QHS SADAF Administration
[2020-07-30] MEDS ORDERED: DEXTROSE 50% IN WATER (25GM) 50 ML SYRINGE IV ONE ×2 (08:44→11:15)
--- NOTE | 2020-07-30 11:18 | Progress Note ---
Assessment and Plan Assessment and plan: 80 YO Male with ESRD on HD (M, W, F), HTN, DM, Vascular Dementia, Cerebral Atherosclerosis presents to ED for evaluation. Patient is confused and unable to provide detailed history at time of exam. Patient caregiver is at bedside during exam and interview and provides history. As per the patient's the patient has experienced increased weakness and confusion over the past 1 month with increased bedbound status. Patient was seen and evaluated by his vascular surgeon today and was found to have left foot cellulitis. Patient was instructed to seek further care at [facility]. Patient transported to [facility] via private vehicle for further care and evaluation of the aforementioned symptoms. The patient was seen and evaluated in the emergency department. All lab and imaging studies reviewed. Patient found to have end-stage renal disease, left foot cellulitis complicated by systemic inflammatory response syndrome, as well as peripheral vascular disease. Patient admitted to medical floor and initiated on IV antibiotic therapy. Nephrology team consulted in ED. Vascular surgery team consulted in ED. No further history is obtainable. No reports of fever, chills, chest pain, palpitation, productive cough, skin rash, syncope, trauma, recent ill contacts, or known exposure to COVID-19. Patient is unable to provide history but has a positive gag reflex and is able to protect his airway without difficulty at the time my evaluation. Prior admission on 07/05/2019 reviewed. All medication listed at time of admission has been reconciled. Advanced care planning conducted in ED. CT: Head: Negative for acute pathology. 33: Discussed with the IR, patient with new onset Altered mental status from the last time they saw the patient. Will begin work-up for possible underlying sepsis etiology or source unknown at this time. Will obtain ID consulted and Neurology. Continue abx, attempted to reach family. Concern for stroke is low but considering hx of vasculopathy will obtain Neurolo gy Will also obtain wound consultation. 3/4: Some improvement noted with initiation of antibiotics. We will continue current management patient continues on hemodialysis. Will await further vascular improvement as patient is beginning to show some improvement. Discussed with case management. Apparently the person that came with the patient is not the patient's but a caregiver H&P portion of this note has been corrected. Continue wound care and every 2 hours turns. 5: Continue current management plan. Vascular to re-evaluate. Continue abx. MRI with no acute pathology. Agree with the D5 as patient still has some intermittent confusion. Continue to monitor. Speech evaluation for swallow management. 07/28: Patient clinically stable, continue supportive care, abx, awaiting full vascular input. cONTINUE D5 for now. 07/29: We will give patient dose of Lasix, get a chest x-ray. Discussed with nursing staff could be that the patient was appear hypoxic due to cold extremities. Will obtain an ABG. We will also obtain a pulmonary consult for clearance for anticipated vascular procedure in a.m. 07/30: Noted hypoglycemia this morning we will give D50 and amp. Patient is for procedure today. Discussed with vascular. Per discussion with nursing saturation has improved. Pulmonary input is noted. He was admitted for digital gangrene on multiple digits both fingers and toes. Was also noted to be septic requiring treatment which has led to improvement in his mental status. (1) Sepsis Current Visit: Yes Status: Acute Plan to address problem: CBC, CMP, empiric IV antibiotic therapy x1 dose, repeat CBC in a.m. (2) End stage renal disease Current Visit: No Status: Acute Plan to address problem: Nephrology team consulted in ED, dialysis as per renal team. (3) Cellulitis/ left first digit gangrene Current Visit: Yes Status: Acute Qualifiers: Site of cellulitis of extremity: lower extremity Laterality: left Plan to address problem: CBC, CMP, IV antibiotic therapy, supportive care, wound care consulted. (4) Peripheral vascular disease Current Visit: Yes Status: Acute Plan to address problem: Vascular surgery consulted, continue medical management. (5) Acute metabolic encephalopathy Current Visit: No Status: Acute Plan to address problem: CT head, neuro check, seizure precautions, aspiration precautions, fall precautions. (6) Vascular dementia Current Visit: Yes Status: Acute Qualifiers: Dementia behavioral disturbance: without behavioral disturbance Qualified Code(s): F01.50 - Vascular dementia without behavioral disturbance Plan to address problem: Verbal prompting, verbal redirection, benzodiazepine therapy as clinically indicated. (7) Cerebral atherosclerosis Current Visit: Yes Status: Acute Plan to address problem: Antiplatelet therapy, risk factor reduction, supportive care. (8)Moderate protein calorie malnutrition (9) acute hypoxia with respiratory failure (10) Stage 1 pressure ulcer sacrum (10) Advance care planning Current Visit: No Status: Acute Plan to address problem: Disease education conducted, care plan discussed, diagnosis discussed, patient is full code, patient knowledges understanding and agreement with care plan, +30 minutes. (11) DVT prophylaxis Current Visit: No Status: Acute Plan to address problem: SCD to bilateral lower extremities while in bed, prophylactic anticoagulation. History Interval history: Patient seen and examined resting comfortably, mental status is improved he is well aware of where he is he was also able to recognize the vascular surgeon that he saw in the office and remembers what led to understanding that he was confused. Hospitalist Physical - Physical exam Narrative exam: General appearance: Present: mild in no distress distress, cachectic - EENT Eyes: Present: PERRL ENT: hearing intact, clear oral mucosa - Neck Neck: Present: supple, normal ROM - Respiratory Respiratory effort: normal Respiratory: bilateral: CTA - Cardiovascular Heart Sounds: Present: S1 & S2. Absent: rub, click - Extremities Extremities: pulses symmetrical, No edema Peripheral Pulses: within normal limits - Abdominal General gastrointestinal: Present: soft, non-tender, non-distended, normal bowel sounds Male genitourinary: Present: normal - Integumentary Integumentary: Present:multiple ischemic necrotic lesions. , warm, dry - Musculoskeletal Musculoskeletal: generalized weakness - Psychiatric Psychiatric: improving although, - Neurologic Neurologic: CNII-XII intact, no focal deficits, moves all extremities, no gait normal speech is garbled sometimes but understandable - Constitutional Vitals: Temp Pulse Resp BP Pulse Ox 97.8 F 67 18 159/48 99 07/30/20 07:50 07/30/20 07:56 07/30/20 07:56 07/30/20 07:50 07/30/20 07:55 General appearance: Present: no acute distress Results - Labs CBC & Chem 7: 07/30/20 04:17 07/30/20 04:17 Labs: Laboratory Last Values WBC 8.5 K/mm3 (4.5-11.0) 07/30/20 04:17 RBC 2.95 M/mm3 (3.65-5.03) L 07/30/20 04:17 Hgb 9.4 gm/dl (11.8-15.2) L 07/30/20 04:17 Hct 28.4 % (35.5-45.6) L 07/30/20 04:17 MCV 96 fl (84-94) H 07/30/20 04:17 MCH 32 pg (28-32) 07/30/20 04:17 MCHC 33 % (32-34) 07/30/20 04:17 RDW 14.9 % (13.2-15.2) 07/30/20 04:17 Plt Count 199 K/mm3 (140-440) 07/30/20 04:17 Lymph % (Auto) 9.0 % (13.4-35.0) L 07/25/20 05:42 [place] % (Auto) 6.9 % (0.0-7.3) 07/25/20 05:42 Eos % (Auto) 0.9 % (0.0-4.3) 07/25/20 05:42 Baso % (Auto) 0.6 % (0.0-1.8) 07/25/20 05:42 Lymph # (Auto) 1.0 K/mm3 (1.2-5.4) L 07/25/20 05:42 [place] # (Auto) 0.8 K/mm3 (0.0-0.8) 07/25/20 05:42 Eos # (Auto) 0.1 K/mm3 (0.0-0.4) 07/25/20 05:42 Baso # (Auto) 0.1 K/mm3 (0.0-0.1) 07/25/20 05:42 Seg Neutrophils % 82.6 % (40.0-70.0) H 07/25/20 05:42 Seg Neutrophils # 9.4 K/mm3 (1.8-7.7) H 07/25/20 05:42 PT 13.5 Sec. (12.2-14.9) 07/24/20 08:40 INR 1.04 (0.87-1.13) 07/24/20 08:40 APTT 45.0 Sec. (24.2-36.6) H 07/24/20 08:40 ABG pH 7.316 pH Units (7.350-7.450) L 07/29/20 12:55 ABG pCO2 48.6 mm Hg 07/29/20 12:55 ABG pO2 131.0 mm Hg (80.0-90.0) H 07/29/20 12:55 ABG HCO3 24.3 mmol/L (20.0-26.0) 07/29/20 12:55 ABG O2 Saturation 98.3 % (95.0-99.0) 07/29/20 12:55 ABG O2 Content 13.1 (0.0-44) 07/29/20 12:55 ABG Base Excess -2.0 mmol/L (-2.0-3.0) 07/29/20 12:55 ABG Hemoglobin 9.4 gm/dl (14.0-18.0) L 07/29/20 12:55 ABG Carboxyhemoglobin 1.1 % (0.0-5.0) 07/29/20 12:55 ABG Methemoglobin 0.6 % (0.0-1.5) 07/29/20 12:55 Oxyhemoglobin 96.7 % (95.0-99.0) 07/29/20 12:55 FiO2 32 % 07/29/20 12:55 Sodium 143 mmol/L (137-145) 07/30/20 04:17 Potassium 4.9 mmol/L (3.6-5.0) 07/30/20 04:17 Chloride 106.9 mmol/L (98-107) 07/30/20 04:17 Carbon Dioxide 24 mmol/L (22-30) 07/30/20 04:17 Anion Gap 17 mmol/L 07/30/20 04:17 BUN 46 mg/dL (9-20) H 07/30/20 04:17 Creatinine 5.8 mg/dL (0.8-1.3) H 07/30/20 04:17 Estimated GFR 10 ml/min 07/30/20 04:17 BUN/Creatinine Ratio 8 % 07/30/20 04:17 Glucose 97 mg/dL (75-100) 07/30/20 04:17 POC Glucose 47 mg/dL (70-105) L 07/30/20 07:50 Lactic Acid 0.90 mmol/L (0.7-2.0) 07/24/20 10:20 Calcium 8.3 mg/dL (8.4-10.2) L 07/30/20 04:17 Prealbumin 0.116 g/L (0.200-0.400) L 07/27/20 16:25 Vitamin B12 980.0 pg/mL (211-911) H 07/27/20 16:25 Folate 12.73 ng/mL (7.3-26.0) 07/27/20 16:25 Nasal Screen MRSA (PCR) Negative (Negative) 07/24/20 Unknown Random Vancomycin 16.3 ug/mL (0-40.0) 07/26/20 05:25 Hepatitis A IgM Ab Non-reactive (NonReactive) 07/25/20 15:30 Hep Bs Antigen Non-reactive (Negative) 07/25/20 15:30 Hep B Core IgM Ab Non-reactive (NonReactive) 07/25/20 15:30 Hepatitis C Antibody Non-reactive (NonReactive) 07/25/20 15:30 Microbiology: Microbiology 07/24/20 10:20 Peripheral/Venous Blood Culture - Final NO GROWTH AFTER 5 DAYS 07/24/20 10:20 Peripheral/Venous Blood Culture - Final NO GROWTH AFTER 5 DAYS Jaimes/IV: Voiding Method Diaper Active Medications - Current Medications Current Medications: Generic Name Dose Route Start Last Admin Trade Name Freq PRN Reason Stop Dose Admin Acetaminophen 650 mg 07/24/20 12:34 Acetaminophen 325 Mg Tab PO Q4H PRN Pain MILD(1-3)/Fever >100.5/ANDRADE Albuterol 2.5 mg 07/24/20 12:30 Albuterol 2.5 Mg/3 Ml Nebu IH Q4HRT PRN Shortness Of Breath Albuterol/Ipratropium 1 ampul 07/29/20 11:00 07/30/20 07:56 Ipratropium/Albuterol Sulfate 3 Ml Ampul.Neb IH 1 ampul TIDRT SADAF Administration Allopurinol 100 mg 07/25/20 10:00 07/29/20 10:04 Allopurinol 100 Mg Tab PO 100 mg QDAY [facility] Administration Calcium Acetate 667 mg 07/24/20 17:00 07/30/20 07:07 Calcium Acetate 667 Mg Cap PO Not Given TIDWM SADAF Carvedilol 6.25 mg 07/24/20 22:00 07/30/20 08:08 Carvedilol 6.25 Mg Tab PO Not Given BID SADAF Dextrose 25 ml 07/30/20 11:15 Dextrose 50% In Water (25gm) 50 Ml Syringe IV 07/30/20 11:16 ONCE ONE Protocol Doxazosin Mesylate 4 mg 07/26/20 10:00 07/29/20 10:03 Doxazosin 4 Mg Tab PO 4 mg DAILY SADAF Administration Epoetin Jose 20,000 unit 07/26/20 10:00 07/26/20 14:07 Epoetin Jose 20,000 Unit/1 Ml Inj SUB-Q 20,000 unit Th SADAF Administration Fenofibrate 145 mg 07/25/20 10:00 07/29/20 10:03 Fenofibrate 145 Mg Tab PO 145 mg DAILY SADAF Administration Ferrous Sulfate 325 mg 07/24/20 22:00 07/29/20 22:07 Ferrous Sulfate 325 Mg Tab PO 325 mg BID SADAF Administration Fish Oil 1,000 mg 07/25/20 10:00 07/29/20 10:03 [place]-3 Fatty Acids/Fish Oil 1 Gram Cap PO 1,000 mg DAILY SADAF Administration Gabapentin 100 mg 07/24/20 22:00 07/30/20 05:55 Gabapentin 100 Mg Cap PO 100 mg Q8HR SADAF Administration Hydralazine HCl 50 mg 07/28/20 22:00 07/30/20 05:54 Hydralazine 25 Mg Tab PO 50 mg Q8HR SADAF Administration Hydralazine HCl 10 mg 07/28/20 16:22 07/28/20 19:01 Hydralazine 20 Mg/1 Ml Inj IV 10 mg Q6H PRN Administration Blood Pressure Piperacillin Sod/Tazobactam Sod 2.25 gm in 50 mls @ 100 mls/hr 07/25/20 11:00 07/30/20 02:22 Zosyn/Ns 2.25 Gm/50ml IV 100 mls/hr Q8H SADAF Administration Sodium Chloride 100 mls @ 999 mls/hr 07/25/20 14:30 Nacl 0.9% IV PETTY PRN Hypotension Losartan Potassium 100 mg 07/25/20 10:00 07/29/20 10:02 Losartan 50 Mg Tab PO 100 mg QDAY SADAF Administration Montelukast Sodium 10 mg 07/24/20 18:00 07/29/20 17:51 Montelukast 10 Mg Tab PO 10 mg QPM SADAF Administration Morphine Sulfate 2 mg 07/24/20 12:30 Morphine 2 Mg/1 Ml Inj IV Q6H PRN Pain , Severe (7-10) Multivit/Ca Carb/B Cmplx/FA/Prenat 1 cap 07/26/20 10:00 07/29/20 10:03 Folic Acid/Vit B Comp W-C 1 Mg (Renal Caps) PO 1 cap QDAY SADAF Administration Multivitamins/Minerals 1 each 07/25/20 10:00 07/29/20 10:04 Multivitamins,Ther W-Minerals Tab PO 1 each QDAY SADAF Administration Ondansetron HCl 4 mg 07/24/20 12:00 Ondansetron 4 Mg/2 Ml Inj IV Q8H PRN Nausea And Vomiting Oxycodone/Acetaminophen 1 tab 07/24/20 12:30 07/25/20 00:30 Oxycodone /Acetaminophen 5-325mg Tab PO 1 tab Q6H PRN Administration Pain, Moderate (4-6) Pravastatin Sodium 80 mg 07/24/20 22:00 07/29/20 22:07 Pravastatin 80 Mg Tab PO 80 mg QHS SADAF Administration Sevelamer Carbonate 800 mg 07/24/20 17:00 07/30/20 07:07 Sevelamer Carbonate 800 Mg Tab PO Not Given TIDWM SADAF Sodium Chloride 10 ml 07/24/20 12:30 07/30/20 11:09 Sodium Chloride 0.9% 10 Ml Flush Syringe IV Not Given BID SADAF Sodium Chloride 10 ml 07/24/20 12:30 07/24/20 12:39 Sodium Chloride 0.9% 10 Ml Flush Syringe IV 10 ml PRN PRN Administration LINE FLUSH Trazodone HCl 50 mg 07/24/20 22:00 07/29/20 22:07 Trazodone 50 Mg Tab PO 50 mg QHS SADAF Administration Nutrition/Malnutrition Assess - Dietary Evaluation Nutrition/Malnutrition Findings: Nutrition Notes Start: 07/25/20 13:43 Freq: Status: Active Protocol: Document 07/26/20 13:46 AL (Rec: 07/26/20 13:54 AL [id number]) Co-Sign 07/26/20 13:46 LP Nutrition Notes Initial or Follow up Reassessment Current Diagnosis CKD (stage V CKD),Decubitus( Pressure Ulcer),Diabetes Other Pertinent Diagnosis on HD, Cellulitis, Gangrene, Cerebral Atherosclerosis, SIRS Current Diet Cardiac Diet Labs/Tests POC BG 65 Pertinent Medications Reviewed Height 5 ft 9 in Weight 72.57 kg [place] Body Weight (kg) 72.72 BMI 23.6 Weight Status Appropriate Subjective/Other Information FU for intakes and ONS tolerance. Pt reports appetite is good and food is good. Pt has AMS. Breakfast and Nepro supplement untouched on the table. According to 3/3 ADL, pt consumed 50% of breakfast, lunch, and dinner) Percent of energy/protein needs met: 57%/49% Burn Absent Trauma Absent Minimum of two criteria No #3 Nutrition Diagnosis Inadequate energy intake Etiology AMS advanced age As Evidenced by Signs and Symptoms pt meets 57%/49% of estimated energy/protein needs #2 Nutrition Diagnosis Increased nutrient needs ( specify in comment below) Comments: protein Diagnosis Progress(for reassessment Continues documentation) #1 Nutrition Diagnosis Predicted suboptimal energy intake Etiology AMS advanced age As Evidenced by Signs and Symptoms pt meets 57%/49% of estimated energy/protein needs Diagnosis Progress(for reassessment Resolved documentation) Is patient on ventilator? No Is Patient Ambulatory and/or Out of Bed No REE-([place]-St. Jeor-confined to bed) 7924.367 Calculation Used for Recommendations [place]-St Jeor Additional Notes PRO needs: >87g (>1.2 g/kg) Fluid needs: Urine output + 1000 mL or per MD Nutrition Intervention Change Diet Order: Continue Cardiac Diet Add Supplement/Snack (indicate name/kcal Nepro daily /protein ) Provides kCal: 425 Provides Protein (gm) 19 Goal #1 Meet at least 75% of estimated energy and protein needs via diet and ONS Goal #2 Wound healing Anticipated Discharge Needs: Renal/Consistent CHO Diet Follow-Up By: 07/30/20 Additional Comments F/U intakes, ONS tolerance
--- NOTE | 2020-07-30 11:44 | Progress Note ---
Assessment and Plan Vascular today Continue supplemental O2 Will follow. Subjective Date of service: 07/30/20 Principal diagnosis: Peripheral vascular disease with gangrene Interval history: No acute events. Objective Vital Signs - 12hr 07/30/20 07/30/20 07/30/20 05:09 05:54 07:50 Temperature 98.0 F 97.8 F Pulse Rate 63 63 69 Pulse Rate [ Anterior Bilateral Throughout] Respiratory 18 20 Rate Respiratory Rate [Anterior Bilateral Throughout] Blood Pressure 161/40 161/40 159/48 O2 Sat by Pulse 96 100 Oximetry 07/30/20 07/30/20 07:55 07:56 Temperature Pulse Rate Pulse Rate [ 67 Anterior Bilateral Throughout] Respiratory Rate Respiratory 18 Rate [Anterior Bilateral Throughout] Blood Pressure O2 Sat by Pulse 99 Oximetry Constitutional: no acute distress, alert Eyes: non-icteric ENT: oropharynx moist Neck: supple Effort: normal Ascultation: Bilateral: clear (anteriorly) Cardiovascular: regular rate and rhythm (no mrg) Gastrointestinal: normoactive bowel sounds, soft Integumentary: other (dry gangrene 1st toe on L) Extremities: no cyanosis, no edema Neurologic: normal mental status, non-focal exam, pupils equal and round Psychiatric: mood appropriate, affect normal CBC and BMP: 07/30/20 04:17 07/31/20 09:03 ABG, PT/INR, D-dimer: ABG ABG pH 7.316 pH Units (7.350-7.450) L 07/29/20 12:55 ABG pCO2 48.6 mm Hg 07/29/20 12:55 ABG pO2 131.0 mm Hg (80.0-90.0) H 07/29/20 12:55 ABG O2 Saturation 98.3 % (95.0-99.0) 07/29/20 12:55 PT/INR, D-dimer PT 13.5 Sec. (12.2-14.9) 07/24/20 08:40 INR 1.04 (0.87-1.13) 07/24/20 08:40 Abnormal lab findings: Abnormal Labs 07/24/20 07/24/20 07/24/20 08:40 08:40 08:40 WBC 11.3 H RBC 3.40 L Hgb 11.0 L Hct 33.0 L MCV 97 H RDW 15.6 H Lymph % (Auto) Lymph # (Auto) Seg Neutrophils % Seg Neutrophils # APTT 45.0 H ABG pH ABG pO2 ABG Hemoglobin Potassium BUN 38 H Creatinine 4.7 H Glucose POC Glucose Calcium Prealbumin Vitamin B12 07/24/20 07/24/20 07/24/20 15:41 15:57 20:52 WBC RBC Hgb Hct MCV RDW Lymph % (Auto) Lymph # (Auto) Seg Neutrophils % Seg Neutrophils # APTT ABG pH ABG pO2 ABG Hemoglobin Potassium BUN Creatinine Glucose POC Glucose 18 L 128 H 108 H Calcium Prealbumin Vitamin B12 07/25/20 07/25/20 07/25/20 05:42 05:42 07:43 WBC 11.4 H RBC 3.02 L Hgb 9.5 L Hct 29.8 L MCV 99 H RDW 15.9 H Lymph % (Auto) 9.0 L Lymph # (Auto) 1.0 L Seg Neutrophils % 82.6 H Seg Neutrophils # 9.4 H APTT ABG pH ABG pO2 ABG Hemoglobin Potassium 5.1 H BUN 53 H Creatinine 6.1 H Glucose 122 H POC Glucose 108 H Calcium Prealbumin Vitamin B12 07/25/20 07/25/20 07/26/20 11:18 21:17 11:35 WBC RBC Hgb Hct MCV RDW Lymph % (Auto) Lymph # (Auto) Seg Neutrophils % Seg Neutrophils # APTT ABG pH ABG pO2 ABG Hemoglobin Potassium BUN Creatinine Glucose POC Glucose 133 H 68 L 45 L Calcium Prealbumin Vitamin B12 07/26/20 07/26/20 07/26/20 12:27 12:51 16:27 WBC RBC Hgb Hct MCV RDW Lymph % (Auto) Lymph # (Auto) Seg Neutrophils % Seg Neutrophils # APTT ABG pH ABG pO2 ABG Hemoglobin Potassium BUN Creatinine Glucose POC Glucose 65 L 124 H 52 L Calcium Prealbumin Vitamin B12 07/26/20 07/27/20 07/27/20 18:13 05:21 05:21 WBC 11.5 H RBC 3.16 L Hgb 10.0 L Hct 29.8 L MCV 95 H RDW Lymph % (Auto) Lymph # (Auto) Seg Neutrophils % Seg Neutrophils # APTT ABG pH ABG pO2 ABG Hemoglobin Potassium BUN 45 H Creatinine 5.6 H Glucose POC Glucose 147 H Calcium Prealbumin Vitamin B12 07/27/20 07/27/2007/27/21 07:37 09:10 16:25 WBC RBC Hgb Hct MCV RDW Lymph % (Auto) Lymph # (Auto) Seg Neutrophils % Seg Neutrophils # APTT ABG pH ABG pO2 ABG Hemoglobin Potassium BUN Creatinine Glucose POC Glucose 41 L 129 H Calcium Prealbumin 0.116 L Vitamin B12 07/27/20 07/27/20 07/28/20 16:25 21:16 11:41 WBC RBC Hgb Hct MCV RDW Lymph % (Auto) Lymph # (Auto) Seg Neutrophils % Seg Neutrophils # APTT ABG pH ABG pO2 ABG Hemoglobin Potassium BUN Creatinine Glucose POC Glucose 123 H 117 H Calcium Prealbumin Vitamin B12 980.0 H 07/28/20 07/28/20 07/29/20 15:47 22:07 07:42 WBC RBC Hgb Hct MCV RDW Lymph % (Auto) Lymph # (Auto) Seg Neutrophils % Seg Neutrophils # APTT ABG pH ABG pO2 ABG Hemoglobin Potassium BUN Creatinine Glucose POC Glucose 148 H 119 H 106 H Calcium Prealbumin Vitamin B12 07/29/20 07/29/20 07/29/20 11:08 12:55 22:46 WBC RBC Hgb Hct MCV RDW Lymph % (Auto) Lymph # (Auto) Seg Neutrophils % Seg Neutrophils # APTT ABG pH 7.316 L ABG pO2 131.0 H ABG Hemoglobin 9.4 L Potassium BUN Creatinine Glucose POC Glucose 117 H 125 H Calcium Prealbumin Vitamin B12 07/30/20 07/30/20 07/30/20 04:17 04:17 07:50 WBC RBC 2.95 L Hgb 9.4 L Hct 28.4 L MCV 96 H RDW Lymph % (Auto) Lymph # (Auto) Seg Neutrophils % Seg Neutrophils # APTT ABG pH ABG pO2 ABG Hemoglobin Potassium BUN 46 H Creatinine 5.8 H Glucose POC Glucose 47 L Calcium 8.3 L Prealbumin Vitamin B12
[2020-07-30] MEDS ORDERED: HEPARIN/NS 5000 UNIT/500ML 1,000 ML IR ONE (12:00)
[2020-07-30] MEDS ORDERED: HEPARIN 10,000 UNITS/10 ML VIAL ONE (12:00)
[2020-07-30] MEDS ORDERED: LIDOCAINE 2%/EPINEPHRINE 1:100,000 VIAL (20 ML) INFILTRATI ONE (12:08)
--- NOTE | 2020-07-30 12:17 | Anesthesia Consultation ---
Anesthesia Consult and Med Hx Date of service: 07/30/20 - Airway Anesthetic Teeth Evaluation: Bridges (bottom front) ROM Head & Neck: Adequate Mental/Hyoid Distance: Adequate Mallampati Class: Class III Intubation Access Assessment: Possibly Difficult - Pre-Operative Health Status ASA Pre-Surgery Classification: ASA4 Proposed Anesthetic Plan: MAC - Pulmonary Hx Smoking: Yes (Quit 1990) Hx Asthma: Yes (as a child) Hx Sleep Apnea: No - Cardiovascular System Hx Hypertension: Yes Hx Coronary Artery Disease: No (Echo 09/21/13: EF 55%, no structural abnormalities) Hx Heart Attack/AMI: No (EKG 09/21/13: SR 71) Hx Valvular Heart Disease: No Hx Peripheral Vascular Disease: Yes (left foot gangrene, left hand 2 finger tip necrosis) - Central Nervous System Hx Seizures: No CVA: No Hx Psychiatric Problems: Yes (some dementia, h/o AMS, currently oriented x3) - Gastrointestinal Hx Gastroesophageal Reflux Disease: No - Endocrine Hx Renal Disease: Yes Hx End Stage Renal Disease: Yes (last HD 07/27/20) Hx Insulin Dependent Diabetes: Yes (BS 73 @ 11:50AM 07/30/20) Hx Thyroid Disease: No - Hematic Hx Anemia: No - Other Systems Hx Cancer: No Hx Obesity: No
--- NOTE | 2020-07-30 12:19 | Anesthesia Day of Surgery ---
Anesthesia Day of Surgery - Day of Surgery Patient Examined: Yes Patient H&P Reviewed: Yes Patient is NPO: Yes Beta Blockers: Yes
[2020-07-30] MEDS ORDERED: HYDROmorphone 1 MG/1 ML INJ ONE (12:26)
[2020-07-30] MEDS ORDERED: propofoL 200 MG/20 ML VIAL IV ONE ×3 (12:26)
[2020-07-30] MEDS ORDERED: LIDOCAINE MPF (2%) 20 MG/1 ML VIAL 5 ML ONE (12:27)
[2020-07-30] MEDS ORDERED: PHENYLEPHRINE/NS 1,000 MCG/10 ML SYRINGE (OR USE) IV ONE (12:30)
[2020-07-30] MEDS ORDERED: HEPARIN 10,000 UNITS/10 ML VIAL IV ONE (13:20)
--- NOTE | 2020-07-30 13:53 | Event Note ---
Date: 07/30/20 Off the floor. Continue abx for now.
[2020-07-30] MEDS ORDERED: HEPARIN 10,000 UNIT/1 ML VIAL IV ONE (14:05)
[2020-07-30] MEDS ORDERED: NITROGLYCERIN 600 MCG/3 ML SYRINGE UD ONE (14:40)
--- NOTE | 2020-07-30 15:00 | Post Operative Note ---
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 Ultrasound guided access of the left common femoral artery, antegrade 2. Angiography of the left lower extremity with selection of the left superficial femoral artery and popliteal artery 3. Fluoroscopic guided placement of a 7 mm spider EPD in the left popliteal artery 4. Atherectomy of the left distal superficial femoral artery with a [employer] M with angioplasty with a 5 mm x 100 mm angiosculpt and 6 mm x 80 mm iNPACT balloon 5. Retrieval of the embolic protection device with a 6 Fr MPA guide 6. Selection of the left popliteal artery and left posterior tibial artery 7. Angioplasty of the left proximal and distal posterior tibial artery with a 2.5 mm x 80 mm angioplasty balloon 8. Attempted crossing of the left SEARCH LEAD common plantar vessel without success 9. Infusion of 600 micrograms of nitroglycerin in the left posterior tibial artery 10. Removal of the left common femoral artery sheath with hemostasis with manual compression Anesthesia: MAC Surgeon: RADHA CADENA Estimated blood loss: minimal Condition: stable Disposition: floor
--- NOTE | 2020-07-30 15:01 | Operative Report ---
Operative Report Operative Report: EXAM: 1. Ultrasound guided access of the left common femoral artery, antegrade 2. Angiography of the left lower extremity with selection of the left superficial femoral artery and popliteal artery 3. Fluoroscopic guided placement of a 7 mm spider EPD in the left popliteal artery 4. Atherectomy of the left distal superficial femoral artery with a Hawkone M with angioplasty with a 5 mm x 100 mm angiosculpt and 6 mm x 80 mm iNPACT balloon 5. Retrieval of the embolic protection device with a 6 Fr MPA guide 6. Selection of the left popliteal artery and left posterior tibial artery 7. Angioplasty of the left proximal and distal posterior tibial artery with a 2.5 mm x 80 mm angioplasty balloon 8. Attempted crossing of the left [employer] common plantar vessel without success 9. Infusion of 600 micrograms of nitroglycerin in the left posterior tibial artery 10. 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 MEDICATIONS: Please see nursing report for full details. DEVICES: 7 mm spider EPD Hawkone M device 5 mm x 100 mm Angiosculpt 6 mm x 80 mm iNPACT balloon 2.5 mm x 80 mm angioplasty balloon CONTRAST: Please see [facility] note for full details PROCEDURE: The risks, benefits, and alternatives were discussed with the patient; written informed consent was obtained and was previously obtained as well. The patient was brought to the [facility] in stable condition. Anesthesia was available to provide MAC. The left groin was prepped and draped in a sterile fashion. Ultrasound was used to evaluate the left common femoral artery which was patent. Under direct ultrasound guidance, the left common femoral artery was accessed with a 21-gauge micropuncture needle in an antegrade direction. 0.018 inch wire was passed into the superficial femoral artery. Needle was exchanged for a transitional dilator and wire was exchanged for 0.035 inch wire. Transitional dilator was exchanged for a 5 [place] sheath. Digital subtraction angiography was performed demonstrating an appropriate puncture, at the lower mid common femoral artery. There is 30 to 40% narrowing intermittently throughout the common femoral artery. The profundofemoral artery is patent. The proximal superficial femoral artery is patent. The mid superficial femoral artery is patent. At the transition between the distal superficial femoral artery and the above-knee popliteal artery, near Santiago's canal, there is a focal 99% narrowing with thrombus within it. For purposes of this dictation we will call this in the distal superficial femoral artery. The [id number] popliteal artery is patent. The mid and below the knee popliteal artery are patent. The anterior tibial artery is small, but without focal narrowing. There is diffuse decrease in caliber throughout the vessel most prominent in the pedal components of the anterior tibial artery as the dorsalis pedis vessel. The tibioperoneal trunk has some mild irregularity at the proximal portion of the vessel, but is otherwise patent. The peroneal vessel is diffusely narrowed without any focal narrowing. The posterior tibial artery is the largest of the vessels, but has extremely sluggish flow with a 90% proximal narrowing and mid to distal narrowing. The distal portion of the vessel is occluded. The common plantar vessel, and medial and lateral plantar vessels are also occluded. After reviewing the diagnostic angiogram, the patient was heparinized. Sheath was exchanged for a 6 [place] 23 cm sheath. The superficial femoral artery narrowing was crossed and a 7 mm spider embolic protection device was then deployed in the left popliteal artery. Atherectomy was performed of the distal superficial femoral artery narrowing multiple times with a Hawkone M device until there was 50% residual narrowing. Due to the calcific nature of this lesion, I decided to predilate the lesion with a angiosculpt balloon. 5 mm x 100 mm angiosculpt balloon was then used to perform angioplasty of the left distal superficial femoral artery. Afterwards, 6 mm x 80 mm iNPACT balloon was then used to perform angioplasty of the left distal superficial femoral artery. Digital subtraction angiography demonstrated no residual narrowing. There is some debris in the embolic protection device. The embolic protection device was then retrieved with a 6 [place] MPA guide. The debris was then removed. Wire and catheter were then used to select the distal popliteal artery. Digital subtraction angiography was performed demonstrating no distal embolization. Based on the patient's angiogram, I was concerned that there was previous embolization into the posterior tibial artery which would explain why there is distal occlusion of the vessel that appeared to be the largest vessel in the calf. Wire and catheter were then used to select the left posterior tibial artery and the vessel and wire were passed to the distal left posterior tibial artery. Digital subtraction angiography was performed. There is no reconstitution. At the level of the common plantar vessel, there was severe calcification, and multiple wires and catheters were used to attempt across this narrowing, but this was then crossable. I suspected at this time that this actually represented a chronic total occlusion and may have been embolized from a long time ago but the residual occlusion is now chronic and not possible to cross, and unfortunately, there is no pedal components of this vessel to cross into. I decided to perform angioplasty of the narrowings of the posterior tibial vessel in order to attempt to increase collateral flow to the calf. 2.5 mm x 80 mm angioplasty balloon was used to perform angioplasty at the 1 cm area of narrowing in the proximal and distal posterior tibial artery. Digital subtraction angiography was performed demonstrating less than 20% residual narrowing. There was still sluggish flow in the posterior tibial artery and therefore I decided to inject nitroglycerin directly into the vessel. 600 mcg of nitroglycerin was injected into the vessel and repeat digital subtraction angiography demonstrated much faster flow through the vessel. At this time, I determined the intervention was complete as there is no further revascularization options available from this antegrade access. All wires, catheters, and sheaths were removed and pressure was held until hemostasis was achieved. Pressure dressing applied. After the procedure, the patient was doing well, but then developed hypotension of unclear cause. He did not develop tachycardia. The patient had a CT scan of the abdomen and pelvis demonstrating no retroperitoneal bleeding, and no hematoma of the left groin. Ultimately blood pressure cuff was changed to the left side and normal blood pressures were obtained. Patient was then sent to the [facility] [place] for further evaluation. FINDINGS: Please see procedure note above IMPRESSION: Successful revascularization with atherectomy and angioplasty of the left distal superficial femoral artery. Successful angioplasty of the left posterior tibial artery.
[2020-07-30] MEDS ORDERED: CLOPIDOGREL 300 MG TAB PO ONE (15:30)
--- NOTE | 2020-07-30 16:39 | Cat Scan Report ---
CT ABDOMEN AND PELVIS WITHOUT CONTRAST INDICATION / CLINICAL INFORMATION: R/o RP bleed, hypotension, Lt groin. [facility] TECHNIQUE: Axial CT images were obtained through the abdomen and pelvis without IV contrast. All CT scans at this location are performed using CT dose reduction for ALARA by means of automated exposure control. COMPARISON: None available. FINDINGS: LOWER CHEST: Moderate right and small left pleural effusions with passive atelectasis of the lung bas es. LIVER: No significant abnormality. GALLBLADDER: No significant abnormality. BILE DUCTS: No significant abnormality. PANCREAS: No significant abnormality. SPLEEN: No significant abnormality. ADRENALS: No significant abnormality. RIGHT KIDNEY / URETER: No significant abnormality. LEFT KIDNEY / URETER: No significant abnormality. STOMACH / SMALL BOWEL: No significant abnormality. COLON: Diverticulosis without acute inflammation. APPENDIX: No significant abnormality. PERITONEUM: No free fluid. No free air. No fluid collection. LYMPH NODES: No significant adenopathy. AORTA / ARTERIES: Moderate atherosclerotic calcification without acute abnormality. Mild aneurysmal d ilatation of the mid infrarenal abdominal aorta measuring 3.1 x 3.0 cm. No aortic leak or rupture. Di ffuse small vessel arterial calcifications characteristic of diabetes and/or renal failure. IVC / VEINS: No significant abnormality. URINARY BLADDER: Moderately distended without acute abnormality. REPRODUCTIVE ORGANS: No significant abnormality. ADDITIONAL FINDINGS: No intra-abdominal or retroperitoneal hematoma. No significant groin hematoma. L eft groin compression device. Small fat-containing right inguinal hernia. SKELETAL SYSTEM: No significant abnormality. IMPRESSION: 1. No intra-abdominal or retroperitoneal hematoma. 2. No acute process in the abdomen or pelvis. 3. Bilateral pleural effusions. 4. 3.1 cm mid infrarenal abdominal aortic aneurysm without acute abnormality. No change since CT date d 07/10/20 Signer Name: Felicitas Bridges MD Signed: 07/30/2020 4:35 PM Workstation Name: [employer]
[2020-07-30] MEDS ORDERED: ASPIRIN 81 MG TAB CHEW ONE (16:49)
--- NOTE | 2020-07-30 16:52 | Event Note ---
Date: 07/30/20 Patient tolerated procedure without incident. After procedure, patient was doing well and recovering without issue. However, I was contacted approximately 30 to 45 minutes after patient was brought to the recovery area about an episode of hypotension with BP of 60/40 which upon repeat blood pressure cuff, was unable to obtain blood pressure. I came by and assessed the patient. The patient was not tachycardic or bradycardic, and was able to answer questions although was confused. No diaphoresis. 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 Patient's blood pressure was obtained from the right upper extremity, and this appeared to be a change, and therefore I obtained a CT of the abdomen pelvis without contrast. No retroperitoneal bleeding was noted. No hematoma of the left groin noted. Code met was called. Blood pressure cuff was changed to the left upper extremity at which point systolic blood pressures of 110-140 were obtained. Patient was mentating better. Ordered 12-lead EKG. Contacted hospitalist and alerted them of the situation. Patient will have to be transferred to the [facility] afterwards. Has a weakly palpable left dorsalis pedis pulse. Will ultimately need revascularization of the bilateral upper extremities and the left iliac system from a retrograde approach.
[2020-07-30 16:58] LABS: Calcium 8.1 mg/dL (8.4-10.2)
[2020-07-30] MEDS: ASPIRIN EC 81 MG TAB PO SCH (17:02)
--- NOTE | 2020-07-30 17:12 | Post Anesthesia Evaluation ---
- Post Anesthesia Evaluation Patient Participated: Yes Airway Patent: Yes Stable Respiratory Function: Yes Nausea/Vomiting: No Temp > 96.8F: Yes Pain Manageable: Yes Adequeate Hydration: Yes Anesthesia Complications: No Block Receding Appropriately: Not Applicable Patient on Ventilator: No
[2020-07-30] MEDS: EPOETIN ALFA 20,000 UNIT/1 ML INJ SUB-Q SCH (21:23)
[2020-07-30] MEDS ORDERED: VANCOMYCIN/NS 1 GM/250 ML 1 GM/250 ML BAG IV ONE (22:00)
[2020-07-30] MEDS: PRAVASTATIN 80 MG TAB PO SCH (22:05)
[2020-07-30] MEDS: traZODone 50 MG TAB PO SCH (22:06)
[2020-07-30] MEDS: FERROUS SULFATE 325 MG TAB PO SCH (22:07)
[2020-07-31] MEDS ORDERED: MORPHINE 2 MG/1 ML INJ IV PRN ×2 (00:58→01:37)
[2020-07-31] MEDS ORDERED: HYDROcodone/ACETAMINOPHEN 5-325 MG TAB PO PRN (01:07)
[2020-07-31] MEDS: PIPERACIL-TAZO 2.25 GM/50 ML 2.25 GM/50 ML BAG IV SCH ×3 (03:33→19:52)
[2020-07-31] MEDS ORDERED: DEXTROSE 50% IN WATER (25GM) 50 ML SYRINGE IV ONE (08:12)
[2020-07-31] MEDS: DEXTROSE 50% IN WATER (25GM) 50 ML SYRINGE IV PRN ×2 (08:30→16:11)
[2020-07-31] MEDS: DOXAZOSIN 4 MG TAB PO SCH ×2 (08:39→12:11)
[2020-07-31] MEDS: LOSARTAN 50 MG TAB PO SCH ×2 (08:39→12:11)
[2020-07-31] MEDS: FERROUS SULFATE 325 MG TAB PO SCH ×3 (08:39→21:06)
[2020-07-31] MEDS: FOLIC ACID/VIT B COMP W-C 1 MG (RENAL CAPS) PO SCH ×2 (08:40→12:12)
[2020-07-31] MEDS: OMEGA-3 FATTY ACIDS/FISH OIL 1 GRAM CAP PO SCH ×2 (08:40→12:12)
[2020-07-31] MEDS: FENOFIBRATE 145 MG TAB PO SCH ×2 (08:41→12:13)
[2020-07-31] MEDS: MULTIVITAMINS,THER W-MINERALS TAB PO SCH ×2 (08:41→12:12)
[2020-07-31] MEDS: hydrALAZINE 25 MG TAB PO SCH ×4 (08:42→21:06)
[2020-07-31] MEDS: allopurinoL 100 MG TAB PO SCH ×2 (08:42→12:13)
[2020-07-31] MEDS: SEVELAMER CARBONATE 800 MG TAB PO SCH ×3 (08:42→16:10)
[2020-07-31] MEDS: CALCIUM ACETATE 667 MG CAP PO SCH ×3 (08:42→16:10)
[2020-07-31] MEDS: MONTELUKAST 10 MG TAB PO SCH ×2 (08:43→18:51)
[2020-07-31] MEDS: GABAPENTIN 100 MG CAP PO SCH ×3 (08:43→21:06)
[2020-07-31] MEDS: IPRATROPIUM/ALBUTEROL SULFATE 3 ML AMPUL.NEB IH SCH ×4 (08:53→19:30)
--- NOTE | 2020-07-31 10:53 | Progress Note ---
Assessment and Plan Vascular today, follow up any new recs Continue supplemental O2 Will follow. Subjective Date of service: 07/31/20 Principal diagnosis: Peripheral vascular disease with gangrene Interval history: Transferred to [facility] last evening for hypotension. Work up negative. Pulm status is unchanged. STable on 2 liters. Objective Vital Signs - 12hr 07/30/20 07/30/20 07/30/20 23:01 23:11 23:21 Temperature Pulse Rate 75 74 71 Pulse Rate [ Anterior Bilateral Throughout] Pulse Rate [ From Monitor] Pulse Rate [ Right Throughout] Respiratory 20 13 18 Rate Respiratory Rate [Anterior Bilateral Throughout] Respiratory Rate [Right Throughout] Blood Pressure 117/36 117/36 117/36 O2 Sat by Pulse 96 98 99 Oximetry 07/30/20 07/30/20 07/30/20 23:31 23:41 23:51 Temperature Pulse Rate 70 71 70 Pulse Rate [ Anterior Bilateral Throughout] Pulse Rate [ From Monitor] Pulse Rate [ Right Throughout] Respiratory 16 12 14 Rate Respiratory Rate [Anterior Bilateral Throughout] Respiratory Rate [Right Throughout] Blood Pressure 117/36 117/36 117/36 O2 Sat by Pulse 99 98 99 Oximetry 07/31/20 07/31/20 07/31/20 00:00 00:11 00:21 Temperature 98.8 F Pulse Rate 67 75 73 Pulse Rate [ Anterior Bilateral Throughout] Pulse Rate [ 67 From Monitor] Pulse Rate [ Right Throughout] Respiratory 17 21 14 Rate Respiratory Rate [Anterior Bilateral Throughout] Respiratory Rate [Right Throughout] Blood Pressure 132/52 132/52 132/52 O2 Sat by Pulse 99 99 99 Oximetry 07/31/20 07/31/20 07/31/20 00:31 00:41 00:51 Temperature Pulse Rate 71 72 71 Pulse Rate [ Anterior Bilateral Throughout] Pulse Rate [ From Monitor] Pulse Rate [ Right Throughout] Respiratory 11 L 8 L 11 L Rate Respiratory Rate [Anterior Bilateral Throughout] Respiratory Rate [Right Throughout] Blood Pressure 132/52 132/52 132/52 O2 Sat by Pulse 97 97 97 Oximetry 07/31/20 07/31/20 07/31/20 01:01 01:11 01:21 Temperature Pulse Rate 70 70 73 Pulse Rate [ Anterior Bilateral Throughout] Pulse Rate [ From Monitor] Pulse Rate [ Right Throughout] Respiratory 19 13 18 Rate Respiratory Rate [Anterior Bilateral Throughout] Respiratory Rate [Right Throughout] Blood Pressure 134/42 134/42 134/42 O2 Sat by Pulse 97 99 98 Oximetry 07/31/20 07/31/20 07/31/20 01:31 01:41 01:51 Temperature Pulse Rate 73 72 73 Pulse Rate [ Anterior Bilateral Throughout] Pulse Rate [ From Monitor] Pulse Rate [ Right Throughout] Respiratory 13 15 11 L Rate Respiratory Rate [Anterior Bilateral Throughout] Respiratory Rate [Right Throughout] Blood Pressure 134/42 134/42 134/42 O2 Sat by Pulse 99 99 99 Oximetry 07/31/20 07/31/20 07/31/20 02:01 02:11 02:21 Temperature Pulse Rate 73 75 73 Pulse Rate [ Anterior Bilateral Throughout] Pulse Rate [ From Monitor] Pulse Rate [ Right Throughout] Respiratory 10 L 18 13 Rate Respiratory Rate [Anterior Bilateral Throughout] Respiratory Rate [Right Throughout] Blood Pressure 129/51 129/51 129/51 O2 Sat by Pulse 98 98 100 Oximetry 07/31/20 07/31/20 07/31/20 02:31 02:41 02:51 Temperature Pulse Rate 74 75 76 Pulse Rate [ Anterior Bilateral Throughout] Pulse Rate [ From Monitor] Pulse Rate [ Right Throughout] Respiratory 19 20 20 Rate Respiratory Rate [Anterior Bilateral Throughout] Respiratory Rate [Right Throughout] Blood Pressure 129/51 129/51 129/51 O2 Sat by Pulse 99 96 98 Oximetry 07/31/20 07/31/20 07/31/20 03:01 03:10 03:20 Temperature Pulse Rate 76 76 73 Pulse Rate [ Anterior Bilateral Throughout] Pulse Rate [ From Monitor] Pulse Rate [ Right Throughout] Respiratory 12 21 20 Rate Respiratory Rate [Anterior Bilateral Throughout] Respiratory Rate [Right Throughout] Blood Pressure 109/84 132/52 109/84 O2 Sat by Pulse 97 Oximetry 07/31/20 07/31/20 07/31/20 03:31 03:36 03:41 Temperature 99 F Pulse Rate 74 75 Pulse Rate [ Anterior Bilateral Throughout] Pulse Rate [ From Monitor] Pulse Rate [ Right Throughout] Respiratory 17 13 Rate Respiratory Rate [Anterior Bilateral Throughout] Respiratory Rate [Right Throughout] Blood Pressure 109/84 109/84 O2 Sat by Pulse Oximetry 07/31/20 07/31/20 07/31/20 03:51 04:00 04:01 Temperature Pulse Rate 75 76 76 Pulse Rate [ Anterior Bilateral Throughout] Pulse Rate [ 76 From Monitor] Pulse Rate [ Right Throughout] Respiratory 12 15 17 Rate Respiratory Rate [Anterior Bilateral Throughout] Respiratory Rate [Right Throughout] Blood Pressure 109/84 133/36 O2 Sat by Pulse 97 Oximetry 07/31/20 07/31/20 07/31/20 04:11 04:21 04:31 Temperature Pulse Rate 76 75 76 Pulse Rate [ Anterior Bilateral Throughout] Pulse Rate [ From Monitor] Pulse Rate [ Right Throughout] Respiratory 20 15 19 Rate Respiratory Rate [Anterior Bilateral Throughout] Respiratory Rate [Right Throughout] Blood Pressure 133/36 133/36 133/36 O2 Sat by Pulse 99 97 98 Oximetry 07/31/20 07/31/20 07/31/20 04:41 04:51 05:00 Temperature Pulse Rate 74 74 Pulse Rate [ Anterior Bilateral Throughout] Pulse Rate [ From Monitor] Pulse Rate [ Right Throughout] Respiratory 16 12 Rate Respiratory Rate [Anterior Bilateral Throughout] Respiratory Rate [Right Throughout] Blood Pressure 133/36 133/36 145/74 O2 Sat by Pulse 98 98 97 Oximetry 07/31/20 07/31/20 07/31/20 05:11 05:21 05:31 Temperature Pulse Rate 72 72 75 Pulse Rate [ Anterior Bilateral Throughout] Pulse Rate [ From Monitor] Pulse Rate [ Right Throughout] Respiratory 12 14 19 Rate Respiratory Rate [Anterior Bilateral Throughout] Respiratory Rate [Right Throughout] Blood Pressure 145/74 145/74 145/74 O2 Sat by Pulse 98 98 99 Oximetry 07/31/20 07/31/20 07/31/20 05:41 05:51 06:01 Temperature Pulse Rate 73 75 73 Pulse Rate [ Anterior Bilateral Throughout] Pulse Rate [ From Monitor] Pulse Rate [ Right Throughout] Respiratory 18 17 15 Rate Respiratory Rate [Anterior Bilateral Throughout] Respiratory Rate [Right Throughout] Blood Pressure 145/74 145/74 138/33 O2 Sat by Pulse 100 98 98 Oximetry 07/31/20 07/31/20 07/31/20 06:11 06:21 06:31 Temperature Pulse Rate 72 72 74 Pulse Rate [ Anterior Bilateral Throughout] Pulse Rate [ From Monitor] Pulse Rate [ Right Throughout] Respiratory 17 15 13 Rate Respiratory Rate [Anterior Bilateral Throughout] Respiratory Rate [Right Throughout] Blood Pressure 138/33 138/33 138/33 O2 Sat by Pulse 98 90 99 Oximetry 07/31/20 07/31/20 07/31/20 06:41 06:51 07:01 Temperature Pulse Rate 73 74 74 Pulse Rate [ Anterior Bilateral Throughout] Pulse Rate [ From Monitor] Pulse Rate [ Right Throughout] Respiratory 17 12 12 Rate Respiratory Rate [Anterior Bilateral Throughout] Respiratory Rate [Right Throughout] Blood Pressure 138/33 138/33 120/61 O2 Sat by Pulse 98 97 97 Oximetry 07/31/20 07/31/20 07/31/20 07:11 07:21 07:31 Temperature Pulse Rate 74 74 75 Pulse Rate [ Anterior Bilateral Throughout] Pulse Rate [ From Monitor] Pulse Rate [ Right Throughout] Respiratory 16 18 17 Rate Respiratory Rate [Anterior Bilateral Throughout] Respiratory Rate [Right Throughout] Blood Pressure 120/61 120/61 120/61 O2 Sat by Pulse 98 97 98 Oximetry 07/31/20 07/31/20 07/31/20 07:41 07:51 08:00 Temperature 100.7 F H Pulse Rate 76 76 74 Pulse Rate [ 73 Anterior Bilateral Throughout] Pulse Rate [ From Monitor] Pulse Rate [ 75 Right Throughout] Respiratory 16 18 18 Rate Respiratory 17 Rate [Anterior Bilateral Throughout] Respiratory 16 Rate [Right Throughout] Blood Pressure 120/61 120/61 136/36 O2 Sat by Pulse 99 99 98 Oximetry 07/31/20 07/31/20 07/31/20 08:11 08:21 08:31 Temperature Pulse Rate 74 79 76 Pulse Rate [ Anterior Bilateral Throughout] Pulse Rate [ From Monitor] Pulse Rate [ Right Throughout] Respiratory 18 18 14 Rate Respiratory Rate [Anterior Bilateral Throughout] Respiratory Rate [Right Throughout] Blood Pressure 136/36 136/36 136/36 O2 Sat by Pulse 98 98 98 Oximetry 07/31/20 07/31/20 07/31/20 08:41 08:51 08:54 Temperature Pulse Rate 74 77 Pulse Rate [ Anterior Bilateral Throughout] Pulse Rate [ From Monitor] Pulse Rate [ Right Throughout] Respiratory 16 17 Rate Respiratory Rate [Anterior Bilateral Throughout] Respiratory Rate [Right Throughout] Blood Pressure 136/36 136/36 O2 Sat by Pulse 98 98 99 Oximetry 07/31/20 07/31/20 07/31/20 09:01 09:11 09:21 Temperature Pulse Rate 76 78 76 Pulse Rate [ Anterior Bilateral Throughout] Pulse Rate [ From Monitor] Pulse Rate [ Right Throughout] Respiratory 15 11 L 12 Rate Respiratory Rate [Anterior Bilateral Throughout] Respiratory Rate [Right Throughout] Blood Pressure 147/30 147/30 147/30 O2 Sat by Pulse 98 95 98 Oximetry 07/31/20 07/31/20 07/31/20 09:31 09:41 09:51 Temperature Pulse Rate 74 76 73 Pulse Rate [ Anterior Bilateral Throughout] Pulse Rate [ From Monitor] Pulse Rate [ Right Throughout] Respiratory 21 13 19 Rate Respiratory Rate [Anterior Bilateral Throughout] Respiratory Rate [Right Throughout] Blood Pressure 147/30 147/30 147/30 O2 Sat by Pulse 96 100 Oximetry 07/31/20 07/31/20 07/31/20 10:00 10:11 10:21 Temperature Pulse Rate 73 71 72 Pulse Rate [ Anterior Bilateral Throughout] Pulse Rate [ From Monitor] Pulse Rate [ Right Throughout] Respiratory 20 19 21 Rate Respiratory Rate [Anterior Bilateral Throughout] Respiratory Rate [Right Throughout] Blood Pressure 129/38 147/30 147/30 O2 Sat by Pulse 100 97 90 Oximetry Constitutional: no acute distress, alert Eyes: non-icteric ENT: oropharynx moist Neck: supple Effort: normal Ascultation: Bilateral: clear (anteriorly) Cardiovascular: regular rate and rhythm (no mrg) Gastrointestinal: normoactive bowel sounds, soft Integumentary: other (dry gangrene 1st toe on L) Extremities: no cyanosis, no edema Neurologic: normal mental status, non-focal exam, pupils equal and round Psychiatric: mood appropriate, affect normal CBC and BMP: 07/31/20 14:09 07/31/20 09:03 ABG, PT/INR, D-dimer: ABG ABG pH 7.316 pH Units (7.350-7.450) L 07/29/20 12:55 ABG pCO2 48.6 mm Hg 07/29/20 12:55 ABG pO2 131.0 mm Hg (80.0-90.0) H 07/29/20 12:55 ABG O2 Saturation 98.3 % (95.0-99.0) 07/29/20 12:55 PT/INR, D-dimer PT 13.5 Sec. (12.2-14.9) 07/24/20 08:40 INR 1.04 (0.87-1.13) 07/24/20 08:40 Abnormal lab findings: Abnormal Labs 07/24/20 07/24/20 07/24/20 08:40 08:40 08:40 WBC 11.3 H RBC 3.40 L Hgb 11.0 L Hct 33.0 L MCV 97 H RDW 15.6 H Lymph % (Auto) Lymph # (Auto) Seg Neutrophils % Seg Neutrophils # APTT 45.0 H ABG pH ABG pO2 ABG Hemoglobin Potassium BUN 38 H Creatinine 4.7 H Glucose POC Glucose Calcium Prealbumin Vitamin B12 07/24/20 07/24/20 07/24/20 15:41 15:57 20:52 WBC RBC Hgb Hct MCV RDW Lymph % (Auto) Lymph # (Auto) Seg Neutrophils % Seg Neutrophils # APTT ABG pH ABG pO2 ABG Hemoglobin Potassium BUN Creatinine Glucose POC Glucose 18 L 128 H 108 H Calcium Prealbumin Vitamin B12 07/25/20 07/25/20 07/25/20 05:42 05:42 07:43 WBC 11.4 H RBC 3.02 L Hgb 9.5 L Hct 29.8 L MCV 99 H RDW 15.9 H Lymph % (Auto) 9.0 L Lymph # (Auto) 1.0 L Seg Neutrophils % 82.6 H Seg Neutrophils # 9.4 H APTT ABG pH ABG pO2 ABG Hemoglobin Potassium 5.1 H BUN 53 H Creatinine 6.1 H Glucose 122 H POC Glucose 108 H Calcium Prealbumin Vitamin B12 07/25/20 07/25/20 07/26/20 11:18 21:17 11:35 WBC RBC Hgb Hct MCV RDW Lymph % (Auto) Lymph # (Auto) Seg Neutrophils % Seg Neutrophils # APTT ABG pH ABG pO2 ABG Hemoglobin Potassium BUN Creatinine Glucose POC Glucose 133 H 68 L 45 L Calcium Prealbumin Vitamin B12 07/26/20 07/26/20 07/26/20 12:27 12:51 16:27 WBC RBC Hgb Hct MCV RDW Lymph % (Auto) Lymph # (Auto) Seg Neutrophils % Seg Neutrophils # APTT ABG pH ABG pO2 ABG Hemoglobin Potassium BUN Creatinine Glucose POC Glucose 65 L 124 H 52 L Calcium Prealbumin Vitamin B12 07/26/20 07/27/20 07/27/20 18:13 05:21 05:21 WBC 11.5 H RBC 3.16 L Hgb 10.0 L Hct 29.8 L MCV 95 H RDW Lymph % (Auto) Lymph # (Auto) Seg Neutrophils % Seg Neutrophils # APTT ABG pH ABG pO2 ABG Hemoglobin Potassium BUN 45 H Creatinine 5.6 H Glucose POC Glucose 147 H Calcium Prealbumin Vitamin B12 07/27/20 07/27/20 07/27/20 07:37 09:10 16:25 WBC RBC Hgb Hct MCV RDW Lymph % (Auto) Lymph # (Auto) Seg Neutrophils % Seg Neutrophils # APTT ABG pH ABG pO2 ABG Hemoglobin Potassium BUN Creatinine Glucose POC Glucose 41 L 129 H Calcium Prealbumin 0.116 L Vitamin B12 07/27/20 07/27/20 07/28/20 16:25 21:16 11:41 WBC RBC Hgb Hct MCV RDW Lymph % (Auto) Lymph # (Auto) Seg Neutrophils % Seg Neutrophils # APTT ABG pH ABG pO2 ABG Hemoglobin Potassium BUN Creatinine Glucose POC Glucose 123 H 117 H Calcium Prealbumin Vitamin B12 980.0 H 07/28/20 07/28/20 07/29/20 15:47 22:07 07:42 WBC RBC Hgb Hct MCV RDW Lymph % (Auto) Lymph # (Auto) Seg Neutrophils % Seg Neutrophils # APTT ABG pH ABG pO2 ABG Hemoglobin Potassium BUN Creatinine Glucose POC Glucose 148 H 119 H 106 H Calcium Prealbumin Vitamin B12 07/29/20 07/29/20 07/29/20 11:08 12:55 22:46 WBC RBC Hgb Hct MCV RDW Lymph % (Auto) Lymph # (Auto) Seg Neutrophils % Seg Neutrophils # APTT ABG pH 7.316 L ABG pO2 131.0 H ABG Hemoglobin 9.4 L Potassium BUN Creatinine Glucose POC Glucose 117 H 125 H Calcium Prealbumin Vitamin B12 07/30/20 07/30/20 07/30/20 04:17 04:17 07:50 WBC RBC 2.95 L Hgb 9.4 L Hct 28.4 L MCV 96 H RDW Lymph % (Auto) Lymph # (Auto) Seg Neutrophils % Seg Neutrophils # APTT ABG pH ABG pO2 ABG Hemoglobin Potassium BUN 46 H Creatinine 5.8 H Glucose POC Glucose 47 L Calcium 8.3 L Prealbumin Vitamin B12 07/30/20 07/30/20 07/31/20 16:33 21:25 07:26 WBC RBC Hgb Hct MCV RDW Lymph % (Auto) Lymph # (Auto) Seg Neutrophils % Seg Neutrophils # APTT ABG pH ABG pO2 ABG Hemoglobin Potassium 5.4 H BUN 50 H Creatinine 5.8 H Glucose 112 H POC Glucose 123 H 59 L Calcium 8.1 L Prealbumin Vitamin B12 03/09/21 09:03 WBC RBC Hgb Hct MCV RDW Lymph % (Auto) Lymph # (Auto) Seg Neutrophils % Seg Neutrophils # APTT ABG pH ABG pO2 ABG Hemoglobin Potassium BUN 29 H Creatinine 4.3 H Glucose 106 H POC Glucose Calcium 8.0 L Prealbumin Vitamin B12
--- NOTE | 2020-07-31 11:03 | Progress Note ---
Assessment and Plan 80-year-old male with end-stage renal disease, bilateral upper extremity digital gangrene, left lower extremity first digit and second digit gangrene, and severe peripheral vascular disease. Status post revascularization of the left lower extremity with an antegrade approach. Patient will need further revascularization of the left iliac system and the bilateral upper extremities. Despite minimally invasive endovascular revascularization, patient has had worsening altered mental status with minimal sedation. Overall, he is complic ated to treat due to his underlying severe comorbidities. Recommend continuation of aspirin and Plavix. Once mental status improves, further revascularization can be performed of the upper extremities and left lower extremity iliac system and common femoral vessels Do not recommend digital amputations until further revascularization performed. Recommend painting first and second digit with Betadine. No access site complication of the left groin. Subjective Date of service: 07/31/20 Principal diagnosis: Peripheral vascular disease with gangrene Interval history: Left leg is warm and hot. Cannot palpate pedal pulses. Confused, does not know who I am today. Objective - Constitutional Vitals: Vital Signs - 12hr 07/30/20 07/30/20 07/30/20 23:11 23:21 23:31 Temperature Pulse Rate 74 71 70 Pulse Rate [ Anterior Bilateral Throughout] Pulse Rate [ From Monitor] Pulse Rate [ Right Throughout] Respiratory 13 18 16 Rate Respiratory Rate [Anterior Bilateral Throughout] Respiratory Rate [Right Throughout] Blood Pressure 117/36 117/36 117/36 O2 Sat by Pulse 98 99 99 Oximetry 07/30/20 07/30/20 07/31/20 23:41 23:51 00:00 Temperature 98.8 F Pulse Rate 71 70 67 Pulse Rate [ Anterior Bilateral Throughout] Pulse Rate [ 67 From Monitor] Pulse Rate [ Right Throughout] Respiratory 12 14 17 Rate Respiratory Rate [Anterior Bilateral Throughout] Respiratory Rate [Right Throughout] Blood Pressure 117/36 117/36 132/52 O2 Sat by Pulse 98 99 99 Oximetry 07/31/20 07/31/20 07/31/20 00:11 00:21 00:31 Temperature Pulse Rate 75 73 71 Pulse Rate [ Anterior Bilateral Throughout] Pulse Rate [ From Monitor] Pulse Rate [ Right Throughout] Respiratory 21 14 11 L Rate Respiratory Rate [Anterior Bilateral Throughout] Respiratory Rate [Right Throughout] Blood Pressure 132/52 132/52 132/52 O2 Sat by Pulse 99 99 97 Oximetry 07/31/20 07/31/2021 00:41 00:51 01:01 Temperature Pulse Rate 72 71 70 Pulse Rate [ Anterior Bilateral Throughout] Pulse Rate [ From Monitor] Pulse Rate [ Right Throughout] Respiratory 8 L 11 L 19 Rate Respiratory Rate [Anterior Bilateral Throughout] Respiratory Rate [Right Throughout] Blood Pressure 132/52 132/52 134/42 O2 Sat by Pulse 97 97 97 Oximetry 07/31/20 07/31/20 07/31/20 01:11 01:21 01:31 Temperature Pulse Rate 70 73 73 Pulse Rate [ Anterior Bilateral Throughout] Pulse Rate [ From Monitor] Pulse Rate [ Right Throughout] Respiratory 13 18 13 Rate Respiratory Rate [Anterior Bilateral Throughout] Respiratory Rate [Right Throughout] Blood Pressure 134/42 134/42 134/42 O2 Sat by Pulse 99 98 99 Oximetry 07/31/20 07/31/20 07/31/20 01:41 01:51 02:01 Temperature Pulse Rate 72 73 73 Pulse Rate [ Anterior Bilateral Throughout] Pulse Rate [ From Monitor] Pulse Rate [ Right Throughout] Respiratory 15 11 L 10 L Rate Respiratory Rate [Anterior Bilateral Throughout] Respiratory Rate [Right Throughout] Blood Pressure 134/42 134/42 129/51 O2 Sat by Pulse 99 99 98 Oximetry 07/31/20 07/31/20 07/31/20 02:11 02:21 02:31 Temperature Pulse Rate 75 73 74 Pulse Rate [ Anterior Bilateral Throughout] Pulse Rate [ From Monitor] Pulse Rate [ Right Throughout] Respiratory 18 13 19 Rate Respiratory Rate [Anterior Bilateral Throughout] Respiratory Rate [Right Throughout] Blood Pressure 129/51 129/51 129/51 O2 Sat by Pulse 98 100 99 Oximetry 07/31/20 07/31/20 07/31/20 02:41 02:51 03:01 Temperature Pulse Rate 75 76 76 Pulse Rate [ Anterior Bilateral Throughout] Pulse Rate [ From Monitor] Pulse Rate [ Right Throughout] Respiratory 20 20 12 Rate Respiratory Rate [Anterior Bilateral Throughout] Respiratory Rate [Right Throughout] Blood Pressure 129/51 129/51 109/84 O2 Sat by Pulse 96 98 97 Oximetry 07/31/20 07/31/20 07/31/20 03:10 03:20 03:31 Temperature Pulse Rate 76 73 74 Pulse Rate [ Anterior Bilateral Throughout] Pulse Rate [ From Monitor] Pulse Rate [ Right Throughout] Respiratory 21 20 17 Rate Respiratory Rate [Anterior Bilateral Throughout] Respiratory Rate [Right Throughout] Blood Pressure 132/52 109/84 109/84 O2 Sat by Pulse Oximetry 07/31/20 07/31/20 07/31/20 03:36 03:41 03:51 Temperature 99 F Pulse Rate 75 75 Pulse Rate [ Anterior Bilateral Throughout] Pulse Rate [ From Monitor] Pulse Rate [ Right Throughout] Respiratory 13 12 Rate Respiratory Rate [Anterior Bilateral Throughout] Respiratory Rate [Right Throughout] Blood Pressure 109/84 109/84 O2 Sat by Pulse Oximetry 07/31/20 07/31/20 07/31/20 04:00 04:01 04:11 Temperature Pulse Rate 76 76 76 Pulse Rate [ Anterior Bilateral Throughout] Pulse Rate [ 76 From Monitor] Pulse Rate [ Right Throughout] Respiratory 15 17 20 Rate Respiratory Rate [Anterior Bilateral Throughout] Respiratory Rate [Right Throughout] Blood Pressure 133/36 133/36 O2 Sat by Pulse 97 99 Oximetry 07/31/20 07/31/20 07/31/20 04:21 04:31 04:41 Temperature Pulse Rate 75 76 74 Pulse Rate [ Anterior Bilateral Throughout] Pulse Rate [ From Monitor] Pulse Rate [ Right Throughout] Respiratory 15 19 16 Rate Respiratory Rate [Anterior Bilateral Throughout] Respiratory Rate [Right Throughout] Blood Pressure 133/36 133/36 133/36 O2 Sat by Pulse 97 98 98 Oximetry 07/31/20 07/31/20 07/31/20 04:51 05:00 05:11 Temperature Pulse Rate 74 72 Pulse Rate [ Anterior Bilateral Throughout] Pulse Rate [ From Monitor] Pulse Rate [ Right Throughout] Respiratory 12 12 Rate Respiratory Rate [Anterior Bilateral Throughout] Respiratory Rate [Right Throughout] Blood Pressure 133/36 145/74 145/74 O2 Sat by Pulse 98 97 98 Oximetry 07/31/20 07/31/20 07/31/20 05:21 05:31 05:41 Temperature Pulse Rate 72 75 73 Pulse Rate [ Anterior Bilateral Throughout] Pulse Rate [ From Monitor] Pulse Rate [ Right Throughout] Respiratory 14 19 18 Rate Respiratory Rate [Anterior Bilateral Throughout] Respiratory Rate [Right Throughout] Blood Pressure 145/74 145/74 145/74 O2 Sat by Pulse 98 99 100 Oximetry 07/31/20 07/31/20 07/31/20 05:51 06:01 06:11 Temperature Pulse Rate 75 73 72 Pulse Rate [ Anterior Bilateral Throughout] Pulse Rate [ From Monitor] Pulse Rate [ Right Throughout] Respiratory 17 15 17 Rate Respiratory Rate [Anterior Bilateral Throughout] Respiratory Rate [Right Throughout] Blood Pressure 145/74 138/33 138/33 O2 Sat by Pulse 98 98 98 Oximetry 07/31/20 07/31/20 07/31/20 06:21 06:31 06:41 Temperature Pulse Rate 72 74 73 Pulse Rate [ Anterior Bilateral Throughout] Pulse Rate [ From Monitor] Pulse Rate [ Right Throughout] Respiratory 15 13 17 Rate Respiratory Rate [Anterior Bilateral Throughout] Respiratory Rate [Right Throughout] Blood Pressure 138/33 138/33 138/33 O2 Sat by Pulse 90 99 98 Oximetry 07/31/20 07/31/20 07/31/20 06:51 07:01 07:11 Temperature Pulse Rate 74 74 74 Pulse Rate [ Anterior Bilateral Throughout] Pulse Rate [ From Monitor] Pulse Rate [ Right Throughout] Respiratory 12 12 16 Rate Respiratory Rate [Anterior Bilateral Throughout] Respiratory Rate [Right Throughout] Blood Pressure 138/33 120/61 120/61 O2 Sat by Pulse 97 97 98 Oximetry 07/31/20 07/31/20 07/31/20 07:21 07:31 07:41 Temperature Pulse Rate 74 75 76 Pulse Rate [ Anterior Bilateral Throughout] Pulse Rate [ From Monitor] Pulse Rate [ Right Throughout] Respiratory 18 17 16 Rate Respiratory Rate [Anterior Bilateral Throughout] Respiratory Rate [Right Throughout] Blood Pressure 120/61 120/61 120/61 O2 Sat by Pulse 97 98 99 Oximetry 07/31/20 07/31/20 07/31/20 07:51 08:00 08:11 Temperature 100.7 F H Pulse Rate 76 74 74 Pulse Rate [ 73 Anterior Bilateral Throughout] Pulse Rate [ From Monitor] Pulse Rate [ 75 Right Throughout] Respiratory 18 18 18 Rate Respiratory 17 Rate [Anterior Bilateral Throughout] Respiratory 16 Rate [Right Throughout] Blood Pressure 120/61 136/36 136/36 O2 Sat by Pulse 99 98 98 Oximetry 07/31/20 07/31/20 07/31/20 08:21 08:31 08:41 Temperature Pulse Rate 79 76 74 Pulse Rate [ Anterior Bilateral Throughout] Pulse Rate [ From Monitor] Pulse Rate [ Right Throughout] Respiratory 18 14 16 Rate Respiratory Rate [Anterior Bilateral Throughout] Respiratory Rate [Right Throughout] Blood Pressure 136/36 136/36 136/36 O2 Sat by Pulse 98 98 98 Oximetry 07/31/20 07/31/20 07/31/20 08:51 08:54 09:01 Temperature Pulse Rate 77 76 Pulse Rate [ Anterior Bilateral Throughout] Pulse Rate [ From Monitor] Pulse Rate [ Right Throughout] Respiratory 17 15 Rate Respiratory Rate [Anterior Bilateral Throughout] Respiratory Rate [Right Throughout] Blood Pressure 136/36 147/30 O2 Sat by Pulse 98 99 98 Oximetry 07/31/20 07/31/20 07/31/20 09:11 09:21 09:31 Temperature Pulse Rate 78 76 74 Pulse Rate [ Anterior Bilateral Throughout] Pulse Rate [ From Monitor] Pulse Rate [ Right Throughout] Respiratory 11 L 12 21 Rate Respiratory Rate [Anterior Bilateral Throughout] Respiratory Rate [Right Throughout] Blood Pressure 147/30 147/30 147/30 O2 Sat by Pulse 95 98 96 Oximetry 07/31/20 07/31/20 07/31/20 09:41 09:51 10:00 Temperature Pulse Rate 76 73 73 Pulse Rate [ Anterior Bilateral Throughout] Pulse Rate [ From Monitor] Pulse Rate [ Right Throughout] Respiratory 13 19 20 Rate Respiratory Rate [Anterior Bilateral Throughout] Respiratory Rate [Right Throughout] Blood Pressure 147/30 147/30 129/38 O2 Sat by Pulse 100 100 Oximetry 07/31/20 07/31/20 10:11 10:21 Temperature Pulse Rate 71 72 Pulse Rate [ Anterior Bilateral Throughout] Pulse Rate [ From Monitor] Pulse Rate [ Right Throughout] Respiratory 19 21 Rate Respiratory Rate [Anterior Bilateral Throughout] Respiratory Rate [Right Throughout] Blood Pressure 147/30 147/30 O2 Sat by Pulse 97 90 Oximetry General appearance: Present: no acute distress - EENT Eyes: EOM intact ENT: hearing intact - Respiratory Respiratory effort: normal Extremity abnormal: pulses diminished (Nonpalpable pedal pulses, left foot hot. Nonpalpable femoral pulses. No hematoma or pseudoaneurysm of the left groin.) - Gastrointestinal General gastrointestinal: Present: soft, non-tender - Psychiatric Psychiatric: other (Confused) - Labs CBC & Chem 7: 07/31/20 14:09 07/31/20 09:03 Labs: Abnormal lab results 07/30/20 07/30/20 07/31/20 Range/Units 16:33 21:25 07:26 Potassium 5.4 H (3.6-5.0) mmol/L BUN 50 H (9-20) mg/dL Creatinine 5.8 H (0.8-1.3) mg/dL Glucose 112 H (75-100) mg/dL POC Glucose 123 H 59 L (70-105) mg/dL Calcium 8.1 L (8.4-10.2) mg/dL 07/31/20 Range/Units 09:03 Potassium (3.6-5.0) mmol/L BUN 29 H (9-20) mg/dL Creatinine 4.3 H (0.8-1.3) mg/dL Glucose 106 H (75-100) mg/dL POC Glucose (70-105) mg/dL Calcium 8.0 L (8.4-10.2) mg/dL Medications & Allergies - Medications Allergies/Adverse Reactions: Allergies No Known Allergies Allergy (Verified 05/01/15 08:52) Home Medications: Home Medications Medication Instructions Recorded Confirmed Last Taken Type Calcium Acetate [Phoslo] 667 mg PO TID 07/24/20 07/24/20 Unknown History Fenofibrate 160 mg PO QDAY 07/24/20 07/24/20 Unknown History Gabapentin [Neurontin] 100 mg PO Q8HR 07/24/20 07/24/20 Unknown History HYDROcodone/ACETAMINOPHEN 1 each PO Q8HR PRN 07/24/20 07/24/20 Unknown History [Hydrocodone-Acetamin 5-300 mg] Losartan Potassium 100 mg PO QDAY 07/24/20 07/24/20 Unknown History Montelukast [Singulair] 10 mg PO QPM 07/24/20 07/24/20 Unknown History Sevelamer Carbonate [Renvela] 800 mg PO TIDWM 07/24/20 07/24/20 Unknown History Simvastatin 40 mg PO QDAY 07/24/20 07/24/20 Unknown History allopurinoL [Zyloprim] 100 mg PO QDAY 07/24/20 07/24/20 Unknown History traZODone [Desyrel] 50 mg PO QHS 07/24/20 07/24/20 Unknown History traZODone [Desyrel] 50 mg PO QHS 07/24/20 07/24/20 Unknown History Active Medications: Generic Name Dose Route Start Last Admin Trade Name Freq PRN Reason Stop Dose Admin Acetaminophen 650 mg 07/24/20 12:34 Acetaminophen 325 Mg Tab PO Q4H PRN Pain MILD(1-3)/Fever >100.5/ANDRADE Albuterol 2.5 mg 07/24/20 12:30 Albuterol 2.5 Mg/3 Ml Nebu IH Q4HRT PRN Shortness Of Breath Albuterol/Ipratropium 1 ampul 07/29/20 11:00 07/31/20 08:53 Ipratropium/Albuterol Sulfate 3 Ml Ampul.Neb IH 1 ampul TIDRT SADAF Administration Allopurinol 100 mg 07/25/20 10:00 07/31/20 08:42 Allopurinol 100 Mg Tab PO Not Given QDAY [facility] Aspirin 81 mg 07/30/20 16:00 07/30/20 17:02 Aspirin Ec 81 Mg Tab PO Not Given QDAY [facility] Calcium Acetate 667 mg 07/24/20 17:00 07/31/20 08:42 Calcium Acetate 667 Mg Cap PO Not Given TIDWM [facility] Carvedilol 6.25 mg 07/24/20 22:00 07/30/20 22:05 Carvedilol 6.25 Mg Tab PO 6.25 mg BID SADAF Administration Clopidogrel Bisulfate 75 mg 07/31/20 10:00 Clopidogrel 75 Mg Tab PO QDAY [facility] Dextrose 50 ml 07/31/20 08:37 Dextrose 50% In Water (25gm) 50 Ml Syringe IV Q30MIN PRN Hypoglycemia Protocol Doxazosin Mesylate 4 mg 07/26/20 10:00 07/31/20 08:39 Doxazosin 4 Mg Tab PO Not Given DAILY [facility] Epoetin Jose 20,000 unit 07/26/20 10:00 07/30/20 21:23 Epoetin Jose 20,000 Unit/1 Ml Inj SUB-Q 20,000 unit Th [facility] Administration Fenofibrate 145 mg 07/25/20 10:00 07/31/20 08:41 Fenofibrate 145 Mg Tab PO Not Given DAILY [facility] Ferrous Sulfate 325 mg 07/24/20 22:00 07/31/20 08:39 Ferrous Sulfate 325 Mg Tab PO Not Given BID [facility] Fish Oil 1,000 mg 07/25/20 10:00 07/31/20 08:40 [place]-3 Fatty Acids/Fish Oil 1 Gram Cap PO Not Given DAILY [facility] Gabapentin 100 mg 07/24/20 22:00 07/31/20 08:43 Gabapentin 100 Mg Cap PO Not Given Q8HR [facility] Hydralazine HCl 50 mg 07/28/20 22:00 07/31/20 08:43 Hydralazine 25 Mg Tab PO Not Given Q8HR [facility] Hydralazine HCl 10 mg 07/28/20 16:22 07/28/20 19:01 Hydralazine 20 Mg/1 Ml Inj IV 10 mg Q6H PRN Administration Blood Pressure Piperacillin Sod/Tazobactam Sod 2.25 gm in 50 mls @ 100 mls/hr 07/25/20 11:00 07/31/20 03:33 Zosyn/Ns 2.25 Gm/50ml IV 100 mls/hr Q8H [facility] Administration Sodium Chloride 100 mls @ 999 mls/hr 07/25/20 14:30 Nacl 0.9% IV PETTY PRN Hypotension Losartan Potassium 100 mg 07/25/20 10:00 07/31/20 08:39 Losartan 50 Mg Tab PO Not Given QDAY [facility] Montelukast Sodium 10 mg 07/24/20 18:00 07/31/20 08:43 Montelukast 10 Mg Tab PO Not Given QPM [facility] Morphine Sulfate 2 mg 07/31/20 01:37 Morphine 2 Mg/1 Ml Inj IV Q6H PRN Pain , Severe (7-10) Multivit/Ca Carb/B Cmplx/FA/Prenat 1 cap 07/26/20 10:00 07/31/20 08:40 Folic Acid/Vit B Comp W-C 1 Mg (Renal Caps) PO Not Given QDAY [facility] Multivitamins/Minerals 1 each 07/25/20 10:00 07/31/20 08:41 Multivitamins,Ther W-Minerals Tab PO Not Given QDAY [facility] Ondansetron HCl 4 mg 07/24/20 12:00 Ondansetron 4 Mg/2 Ml Inj IV Q8H PRN Nausea And Vomiting Oxycodone/Acetaminophen 1 tab 07/24/20 12:30 07/25/20 00:30 Oxycodone /Acetaminophen 5-325mg Tab PO 1 tab Q6H PRN Administration Pain, Moderate (4-6) Pravastatin Sodium 80 mg 07/24/20 22:00 07/30/20 22:05 Pravastatin 80 Mg Tab PO 80 mg QHS [facility] Administration Sevelamer Carbonate 800 mg 07/24/20 17:00 07/31/20 08:42 Sevelamer Carbonate 800 Mg Tab PO Not Given TIDWM [facility] Sodium Chloride 10 ml 07/24/20 12:30 07/30/20 21:56 Sodium Chloride 0.9% 10 Ml Flush Syringe IV 10 ml BID SADAF Administration Sodium Chloride 10 ml 07/24/20 12:30 07/24/20 12:39 Sodium Chloride 0.9% 10 Ml Flush Syringe IV 10 ml PRN PRN Administration LINE FLUSH Trazodone HCl 50 mg 07/24/20 22:00 07/30/20 22:06 Trazodone 50 Mg Tab PO 50 mg QHS SADAF Administration
--- NOTE | 2020-07-31 11:11 | Progress Note ---
Assessment and Plan Assessment and plan: 80 YO Male with ESRD on HD (M, W, F), HTN, DM, Vascular Dementia, Cerebral Atherosclerosis presents to ED for evaluation. Patient is confused and unable to provide detailed history at time of exam. Patient caregiver is at bedside during exam and interview and provides history. As per the patient's the patient has experienced increased weakness and confusion over the past 1 month with increased bedbound status. Patient was seen and evaluated by his vascular surgeon today and was found to have left foot cellulitis. Patient was instructed to seek further care at [facility]. Patient transported to [facility] via private vehicle for further care and evaluation of the aforementioned symptoms. The patient was seen and evaluated in the emergency department. All lab and imaging studies reviewed. Patient found to have end-stage renal disease, left foot cellulitis complicated by systemic inflammatory response syndrome, as well as peripheral vascular disease. Patient admitted to medical floor and initiated on IV antibiotic therapy. Nephrology team consulted in ED. Vascular surgery team consulted in ED. No further history is obtainable. No reports of fever, chills, chest pain, palpitation, productive cough, skin rash, syncope, trauma, recent ill contacts, or known exposure to COVID-19. Patient is unable to provide history but has a positive gag reflex and is able to protect his airway without difficulty at the time my evaluation. Prior admission on 07/05/2019 reviewed. All medication listed at time of admission has been reconciled. Advanced care planning conducted in ED. CT: Head: Negative for acute pathology. 33: Discussed with the IR, patient with new onset Altered mental status from the last time they saw the patient. Will begin work-up for possible underlying sepsis etiology or source unknown at this time. Will obtain ID consulted and Neurology. Continue abx, attempted to reach family. Concern for stroke is low but considering hx of vasculopathy will obtain Neurol ogy Will also obtain wound consultation. 3/4: Some improvement noted with initiation of antibiotics. We will continue current management patient continues on hemodialysis. Will await further vascul ar improvement as patient is beginning to show some improvement. Discussed with case management. Apparently the person that came with the patient is not the patient's but a caregiver H&P portion of this note has been corrected. Continue wound care and every 2 hours turns. 5: Continue current management plan. Vascular to re-evaluate. Continue abx. MRI with no acute pathology. Agree with the D5 as patient still has some intermittent confusion. Continue to monitor. Speech evaluation for swallow management. 07/28: Patient clinically stable, continue supportive care, abx, awaiting full vascular input. cONTINUE D5 for now. 07/29: We will give patient dose of Lasix, get a chest x-ray. Discussed with nursing staff could be that the patient was appear hypoxic due to cold extremities. Will obtain an ABG. We will also obtain a pulmonary consult for clearance for anticipated vascular procedure in a.m. 07/30: Noted hypoglycemia this morning we will give D50 and amp. Patient is for procedure today. Discussed with vascular. Per discussion with nursing saturation has improved. Pulmonary input is noted. He was admitted for digital gangrene on multiple digits both fingers and toes. Was also noted to be septic requiring treatment which has led to improvement in his mental status. 07/31. Now status post angiography and angioplasty of distal femoral arteries. Now on antiplatelets. He has been having episodes of hypoglycemia. Started him on D10 water. Continue to monitor closely for now. CT head ordered to rule out any CVA though not likely. Vascular surgery following. Assessment (1) Sepsis Current Visit: Yes Status: Acute Plan to address problem: CBC, CMP, empiric IV antibiotic therapy x1 dose, repeat CBC in a.m. (2) End stage renal disease Current Visit: No Status: Acute Plan to address problem: Nephrology team consulted in ED, dialysis as per renal team. (3) Cellulitis/ left first digit gangrene Current Visit: Yes Status: Acute Qualifiers: Site of cellulitis of extremity: lower extremity Laterality: left Plan to address problem: CBC, CMP, IV antibiotic therapy, supportive care, wound care consulted. (4) Peripheral vascular disease Current Visit: Yes Status: Acute Plan to address problem: Vascular surgery consulted, continue medical management. (5) Acute metabolic encephalopathy Current Visit: No Status: Acute Plan to address problem: CT head, neuro check, seizure precautions, aspiration precautions, fall precautions. (6) Vascular dementia Current Visit: Yes Status: Acute Qualifiers: Dementia behavioral disturbance: without behavioral disturbance Qualified Code(s): F01.50 - Vascular dementia without behavioral disturbance Plan to address problem: Verbal prompting, verbal redirection, benzodiazepine therapy as clinically indicated. (7) Cerebral atherosclerosis Current Visit: Yes Status: Acute Plan to address problem: Antiplatelet therapy, risk factor reduction, supportive care. (8)Moderate protein calorie malnutrition (9) acute hypoxia with respiratory failure (10) Stage 1 pressure ulcer sacrum (10) Advance care planning Current Visit: No Status: Acute Plan to address problem: Disease education conducted, care plan discussed, diagnosis discussed, patient is full code, patient knowledges understanding and agreement with care plan, +30 minutes. (11) DVT prophylaxis Current Visit: No Status: Acute Plan to address problem: SCD to bilateral lower extremities while in bed, prophylactic anticoagulation. History Interval history: Patient seen and examined. Status post angiography with angioplasty of the distal femoral vessels. His mental status is worse since he had a procedure. Patient able to maintain his airway. Sats remained in the 99%. Blood glucose intermittently low. Started on D10 water Plan to get a CT head. Hospitalist Physical - Physical exam Narrative exam: VITAL SIGNS: Reviewed. GENERAL: Sleepy HEAD: No signs of head trauma. EYES: Pupils are equal. Extraocular motions intact. MOUTH: Oropharynx is normal. NECK: No adenopathy, no JVD. CHEST: Chest with diminished breath sounds bilaterally. No wheezes, rales, or rhonchi. CARDIAC: normal S1 and S2, without murmurs, gallops, or rubs. ABDOMEN: Soft, non tender and non distended. No rebound or guarding, and no masses palpated. Bowel Sounds normal. MUSCULOSKELETAL: LLE: Gangrenous looking big toe, proximal area of the leg feels warm to touch. NEUROLOGIC EXAM: Sleepy no focal neurologic deficits SKIN: No obvious lesions - Constitutional Vitals: Temp Pulse Resp BP Pulse Ox 100.7 F H 72 21 147/30 90 07/31/20 08:00 07/31/20 10:21 07/31/20 10:21 07/31/20 10:21 07/31/20 10:21 Results - Labs CBC & Chem 7: 07/30/20 04:17 07/31/20 09:03 Labs: Laboratory Last Values WBC 8.5 K/mm3 (4.5-11.0) 07/30/20 04:17 RBC 2.95 M/mm3 (3.65-5.03) L 07/30/20 04:17 Hgb 9.4 gm/dl (11.8-15.2) L 07/30/20 04:17 Hct 28.4 % (35.5-45.6) L 07/30/20 04:17 MCV 96 fl (84-94) H 07/30/20 04:17 MCH 32 pg (28-32) 07/30/20 04:17 MCHC 33 % (32-34) 07/30/20 04:17 RDW 14.9 % (13.2-15.2) 07/30/20 04:17 Plt Count 199 K/mm3 (140-440) 07/30/20 04:17 Lymph % (Auto) 9.0 % (13.4-35.0) L 07/25/20 05:42 [place] % (Auto) 6.9 % (0.0-7.3) 07/25/20 05:42 Eos % (Auto) 0.9 % (0.0-4.3) 07/25/20 05:42 Baso % (Auto) 0.6 % (0.0-1.8) 07/25/20 05:42 Lymph # (Auto) 1.0 K/mm3 (1.2-5.4) L 07/25/20 05:42 [place] # (Auto) 0.8 K/mm3 (0.0-0.8) 07/25/20 05:42 Eos # (Auto) 0.1 K/mm3 (0.0-0.4) 07/25/20 05:42 Baso # (Auto) 0.1 K/mm3 (0.0-0.1) 07/25/20 05:42 Seg Neutrophils % 82.6 % (40.0-70.0) H 07/25/20 05:42 Seg Neutrophils # 9.4 K/mm3 (1.8-7.7) H 07/25/20 05:42 PT 13.5 Sec. (12.2-14.9) 07/24/20 08:40 INR 1.04 (0.87-1.13) 07/24/20 08:40 APTT 45.0 Sec. (24.2-36.6) H 07/24/20 08:40 ABG pH 7.316 pH Units (7.350-7.450) L 07/29/20 12:55 ABG pCO2 48.6 mm Hg 07/29/20 12:55 ABG pO2 131.0 mm Hg (80.0-90.0) H 07/29/20 12:55 ABG HCO3 24.3 mmol/L (20.0-26.0) 07/29/20 12:55 ABG O2 Saturation 98.3 % (95.0-99.0) 07/29/20 12:55 ABG O2 Content 13.1 (0.0-44) 07/29/20 12:55 ABG Base Excess -2.0 mmol/L (-2.0-3.0) 07/29/20 12:55 ABG Hemoglobin 9.4 gm/dl (14.0-18.0) L 07/29/20 12:55 ABG Carboxyhemoglobin 1.1 % (0.0-5.0) 07/29/20 12:55 ABG Methemoglobin 0.6 % (0.0-1.5) 07/29/20 12:55 Oxyhemoglobin 96.7 % (95.0-99.0) 07/29/20 12:55 FiO2 32 % 07/29/20 12:55 Sodium 140 mmol/L (137-145) 07/31/20 09:03 Potassium 4.3 mmol/L (3.6-5.0) D 07/31/20 09:03 Chloride 104.1 mmol/L (98-107) 07/31/20 09:03 Carbon Dioxide 26 mmol/L (22-30) 07/31/20 09:03 Anion Gap 14 mmol/L 07/31/20 09:03 BUN 29 mg/dL (9-20) H 07/31/20 09:03 Creatinine 4.3 mg/dL (0.8-1.3) H 07/31/20 09:03 Estimated GFR 13 ml/min 07/31/20 09:03 BUN/Creatinine Ratio 7 % 07/31/20 09:03 Glucose 106 mg/dL (75-100) H 07/31/20 09:03 POC Glucose 90 mg/dL (70-105) 07/31/20 09:15 Lactic Acid 0.90 mmol/L (0.7-2.0) 07/24/20 10:20 Calcium 8.0 mg/dL (8.4-10.2) L 07/31/20 09:03 Prealbumin 0.116 g/L (0.200-0.400) L 07/27/20 16:25 Vitamin B12 980.0 pg/mL (211-911) H 07/27/20 16:25 Folate 12.73 ng/mL (7.3-26.0) 07/27/20 16:25 Nasal Screen MRSA (PCR) Negative (Negative) 07/24/20 Unknown Random Vancomycin 16.3 ug/mL (0-40.0) 07/26/20 05:25 Copper 113 mcg/dL (70-175) 07/27/20 16:25 Hepatitis A IgM Ab Non-reactive (NonReactive) 07/25/20 15:30 Hep Bs Antigen Non-reactive (Negative) 07/25/20 15:30 Hep B Core IgM Ab Non-reactive (NonReactive) 07/25/20 15:30 Hepatitis C Antibody Non-reactive (NonReactive) 07/25/20 15:30 [place]/IV: Voiding Method Diaper Active Medications - Current Medications Current Medications: Generic Name Dose Route Start Last Admin Trade Name Freq PRN Reason Stop Dose Admin Acetaminophen 650 mg 07/24/20 12:34 Acetaminophen 325 Mg Tab PO Q4H PRN Pain MILD(1-3)/Fever >100.5/ANDRADE Albuterol 2.5 mg 07/24/20 12:30 Albuterol 2.5 Mg/3 Ml Nebu IH Q4HRT PRN Shortness Of Breath Albuterol/Ipratropium 1 ampul 07/29/20 11:00 07/31/20 08:53 Ipratropium/Albuterol Sulfate 3 Ml Ampul.Neb IH 1 ampul TIDRT [facility] Administration Allopurinol 100 mg 07/25/20 10:00 07/31/20 08:42 Allopurinol 100 Mg Tab PO Not Given QDAY [facility] Aspirin 81 mg 07/30/20 16:00 07/30/20 17:02 Aspirin Ec 81 Mg Tab PO Not Given QDAY [facility] Calcium Acetate 667 mg 07/24/20 17:00 07/31/20 08:42 Calcium Acetate 667 Mg Cap PO Not Given TIDWM [facility] Carvedilol 6.25 mg 07/24/20 22:00 07/30/20 22:05 Carvedilol 6.25 Mg Tab PO 6.25 mg BID SADAF Administration Clopidogrel Bisulfate 75 mg 07/31/20 10:00 Clopidogrel 75 Mg Tab PO QDAY SADAF Dextrose 50 ml 07/31/20 08:37 Dextrose 50% In Water (25gm) 50 Ml Syringe IV Q30MIN PRN Hypoglycemia Protocol Doxazosin Mesylate 4 mg 07/26/20 10:00 07/31/20 08:39 Doxazosin 4 Mg Tab PO Not Given DAILY [facility] Epoetin Jose 20,000 unit 07/26/20 10:00 07/30/20 21:23 Epoetin Jose 20,000 Unit/1 Ml Inj SUB-Q 20,000 unit Th SADAF Administration Fenofibrate 145 mg 07/25/20 10:00 07/31/20 08:41 Fenofibrate 145 Mg Tab PO Not Given DAILY [facility] Ferrous Sulfate 325 mg 07/24/20 22:00 07/31/20 08:39 Ferrous Sulfate 325 Mg Tab PO Not Given BID [facility] Fish Oil 1,000 mg 07/25/20 10:00 07/31/20 08:40 [place]-3 Fatty Acids/Fish Oil 1 Gram Cap PO Not Given DAILY [facility] Gabapentin 100 mg 07/24/20 22:00 07/31/20 08:43 Gabapentin 100 Mg Cap PO Not Given Q8HR [facility] Hydralazine HCl 50 mg 07/28/20 22:00 07/31/20 08:43 Hydralazine 25 Mg Tab PO Not Given Q8HR [facility] Hydralazine HCl 10 mg 07/28/20 16:22 07/28/20 19:01 Hydralazine 20 Mg/1 Ml Inj IV 10 mg Q6H PRN Administration Blood Pressure Piperacillin Sod/Tazobactam Sod 2.25 gm in 50 mls @ 100 mls/hr 07/25/20 11:00 07/31/20 03:33 Zosyn/Ns 2.25 Gm/50ml IV 100 mls/hr Q8H SADAF Administration Sodium Chloride 100 mls @ 999 mls/hr 07/25/20 14:30 Nacl 0.9% IV PETTY PRN Hypotension Losartan Potassium 100 mg 07/25/20 10:00 07/31/20 08:39 Losartan 50 Mg Tab PO Not Given QDAY [facility] Montelukast Sodium 10 mg 07/24/20 18:00 07/31/20 08:43 Montelukast 10 Mg Tab PO Not Given QPM [facility] Morphine Sulfate 2 mg 07/31/20 01:37 Morphine 2 Mg/1 Ml Inj IV Q6H PRN Pain , Severe (7-10) Multivit/Ca Carb/B Cmplx/FA/Prenat 1 cap 07/26/20 10:00 07/31/20 08:40 Folic Acid/Vit B Comp W-C 1 Mg (Renal Caps) PO Not Given QDAY [facility] Multivitamins/Minerals 1 each 07/25/20 10:00 07/31/20 08:41 Multivitamins,Ther W-Minerals Tab PO Not Given QDAY [facility] Ondansetron HCl 4 mg 07/24/20 12:00 Ondansetron 4 Mg/2 Ml Inj IV Q8H PRN Nausea And Vomiting Oxycodone/Acetaminophen 1 tab 07/24/20 12:30 07/25/20 00:30 Oxycodone /Acetaminophen 5-325mg Tab PO 1 tab Q6H PRN Administration Pain, Moderate (4-6) Pravastatin Sodium 80 mg 07/24/20 22:00 07/30/20 22:05 Pravastatin 80 Mg Tab PO 80 mg QHS SADAF Administration Sevelamer Carbonate 800 mg 07/24/20 17:00 07/31/20 08:42 Sevelamer Carbonate 800 Mg Tab PO Not Given TIDWM SADAF Sodium Chloride 10 ml 07/24/20 12:30 07/30/20 21:56 Sodium Chloride 0.9% 10 Ml Flush Syringe IV 10 ml BID SADAF Administration Sodium Chloride 10 ml 07/24/20 12:30 07/24/20 12:39 Sodium Chloride 0.9% 10 Ml Flush Syringe IV 10 ml PRN PRN Administration LINE FLUSH Trazodone HCl 50 mg 07/24/20 22:00 07/30/20 22:06 Trazodone 50 Mg Tab PO 50 mg QHS SADAF Administration Nutrition/Malnutrition Assess - Dietary Evaluation Nutrition/Malnutrition Findings: Nutrition Notes Start: 07/25/20 13:43 Freq: Status: Active Protocol: Document 07/30/20 13:39 CW (Rec: 07/30/20 13:49 CW [id number]) Nutrition Notes Initial or Follow up Reassessment Current Diagnosis CKD (stage V CKD),Decubitus( Pressure Ulcer),Diabetes Other Pertinent Diagnosis on HD, Cellulitis, Gangrene, Cerebral Atherosclerosis, SIRS Current Diet NPO Labs/Tests BUN 46 Cr 5.8 Pertinent Medications D50w 50 ml Renal Caps Height 5 ft 9 in Weight 77.4 kg [place] Body Weight (kg) 72.72 BMI 25.2 Weight change and time frame Weight change noted; Likely related to fluid and HD. Previous wt most likely dry BW Weight Status Appropriate Subjective/Other Information F/U for PO intake and ONS. Pt not in room upone visitation. Per chart pt eating 100% of meals and 25% fo ONS. Pt now NPO for procdure. Reccommend suggesting other flavors to pt . If pt still does not it drink, dc ONS. Pt has been intaking 100% of kcal and 98% of kcal neeeds prior to NPO order Percent of energy/protein needs met: 0%/0% Burn Absent Trauma Absent GI Symptoms Diarrhea Skin Integrity/Comment Diabetic Ulcer Minimum of two criteria No physical signs of malnutrition #3 Nutrition Diagnosis Inadequate energy intake #2 Nutrition Diagnosis Increased nutrient needs ( specify in comment below) Comments: protein Diagnosis Progress(for reassessment Continues documentation) Is patient on ventilator? No Is Patient Ambulatory and/or Out of Bed No REE-([facility]-confined to bed) 9617.524 Calculation Used for Recommendations [facility] Additional Notes PRO needs: >87g (>1.2 g/kg) Fluid needs: Urine output + 1000 mL or per MD Nutrition Intervention Change Diet Order: Continue Cardiac Diet Add Supplement/Snack (indicate name/kcal [place] daily /protein ) Provides kCal: 425 Provides Protein (gm) 19 Goal #1 Meet at least 75% of estimated energy and protein needs via diet and ONS Goal #2 Wound healing Anticipated Discharge Needs: Renal/Consistent CHO Diet Follow-Up By: 08/01/20 Additional Comments F/U intakes, ONS tolerance
[2020-07-31] MEDS: carvediloL 6.25 MG TAB PO SCH ×2 (12:11→21:06)
[2020-07-31] MEDS: ASPIRIN EC 81 MG TAB PO SCH (12:12)
[2020-07-31] MEDS: CLOPIDOGREL 75 MG TAB PO SCH (12:12)
--- NOTE | 2020-07-31 12:57 | Progress Note ---
Assessment and Plan Assessment and plan #End-stage renal disease: No indication for HD today. Assess daily, plan for tomorrow if hemodynamically stable. Patient dialysis access is a central venous catheter. #Hold antihypertensives #Check CBC #Keep MAP>65 #Diet and nutrition: Patient needs to be on high protein diet, #Volume and electrolyte Stable at this time #Bone mineral disorder: Monitor phosphorus and PTH level periodically, outpatient labs satisfactory #Multiple other complex comorbidities currently being managed by primary team #peripheral arterial disease/gangrene, vascular note reviewed Will continue to follow and make recommendation for renal standpoint Subjective Date of service: 07/31/20 Principal diagnosis: Peripheral vascular disease with gangrene Interval history: Transferred to [facility] post vascular procedure due to hypotension and encephalop athy Patient was seen for his renal issues Nursing, interdisciplinary and consult notes were reviewed Vitals, input and output, medications and labs were reviewed Objective - Exam Narrative Exam: General: No acute distress HEENT: Oral mucosa moist Neck: Supple, no JVD Chest: Clear to auscultation bilaterally Heart: RRR, S1 and S2, no pericardial rub Abdomen: Soft, nontender, no renal bruit Extremity: No peripheral cyanosis, edema. LE dressing noted. Neurological: Somnolent Dermatology: No skin rash Psych: Unable to assess Musculoskeletal: No joint effusion - Vital Signs Vital signs: Vital Signs - 12hr 07/31/20 07/31/20 07/31/20 01:01 01:11 01:21 Temperature Pulse Rate 70 70 73 Pulse Rate [ Anterior Bilateral Throughout] Pulse Rate [ From Monitor] Pulse Rate [ Right Throughout] Respiratory 19 13 18 Rate Respiratory Rate [Anterior Bilateral Throughout] Respiratory Rate [Right Throughout] Blood Pressure 134/42 134/42 134/42 O2 Sat by Pulse 97 99 98 Oximetry 07/31/20 07/31/20 07/31/20 01:31 01:41 01:51 Temperature Pulse Rate 73 72 73 Pulse Rate [ Anterior Bilateral Throughout] Pulse Rate [ From Monitor] Pulse Rate [ Right Throughout] Respiratory 13 15 11 L Rate Respiratory Rate [Anterior Bilateral Throughout] Respiratory Rate [Right Throughout] Blood Pressure 134/42 134/42 134/42 O2 Sat by Pulse 99 99 99 Oximetry 07/31/20 07/31/20 07/31/20 02:01 02:11 02:21 Temperature Pulse Rate 73 75 73 Pulse Rate [ Anterior Bilateral Throughout] Pulse Rate [ From Monitor] Pulse Rate [ Right Throughout] Respiratory 10 L 18 13 Rate Respiratory Rate [Anterior Bilateral Throughout] Respiratory Rate [Right Throughout] Blood Pressure 129/51 129/51 129/51 O2 Sat by Pulse 98 98 100 Oximetry 07/31/20 07/31/20 07/31/20 02:31 02:41 02:51 Temperature Pulse Rate 74 75 76 Pulse Rate [ Anterior Bilateral Throughout] Pulse Rate [ From Monitor] Pulse Rate [ Right Throughout] Respiratory 19 20 20 Rate Respiratory Rate [Anterior Bilateral Throughout] Respiratory Rate [Right Throughout] Blood Pressure 129/51 129/51 129/51 O2 Sat by Pulse 99 96 98 Oximetry 07/31/20 07/31/20 07/31/20 03:01 03:10 03:20 Temperature Pulse Rate 76 76 73 Pulse Rate [ Anterior Bilateral Throughout] Pulse Rate [ From Monitor] Pulse Rate [ Right Throughout] Respiratory 12 21 20 Rate Respiratory Rate [Anterior Bilateral Throughout] Respiratory Rate [Right Throughout] Blood Pressure 109/84 132/52 109/84 O2 Sat by Pulse 97 Oximetry 07/31/20 07/31/20 07/31/20 03:31 03:36 03:41 Temperature 99 F Pulse Rate 74 75 Pulse Rate [ Anterior Bilateral Throughout] Pulse Rate [ From Monitor] Pulse Rate [ Right Throughout] Respiratory 17 13 Rate Respiratory Rate [Anterior Bilateral Throughout] Respiratory Rate [Right Throughout] Blood Pressure 109/84 109/84 O2 Sat by Pulse Oximetry 07/31/20 07/31/20 07/31/20 03:51 04:00 04:01 Temperature Pulse Rate 75 76 76 Pulse Rate [ Anterior Bilateral Throughout] Pulse Rate [ 76 From Monitor] Pulse Rate [ Right Throughout] Respiratory 12 15 17 Rate Respiratory Rate [Anterior Bilateral Throughout] Respiratory Rate [Right Throughout] Blood Pressure 109/84 133/36 O2 Sat by Pulse 97 Oximetry 07/31/20 07/31/20 07/31/20 04:11 04:21 04:31 Temperature Pulse Rate 76 75 76 Pulse Rate [ Anterior Bilateral Throughout] Pulse Rate [ From Monitor] Pulse Rate [ Right Throughout] Respiratory 20 15 19 Rate Respiratory Rate [Anterior Bilateral Throughout] Respiratory Rate [Right Throughout] Blood Pressure 133/36 133/36 133/36 O2 Sat by Pulse 99 97 98 Oximetry 07/31/20 07/31/20 07/31/20 04:41 04:51 05:00 Temperature Pulse Rate 74 74 Pulse Rate [ Anterior Bilateral Throughout] Pulse Rate [ From Monitor] Pulse Rate [ Right Throughout] Respiratory 16 12 Rate Respiratory Rate [Anterior Bilateral Throughout] Respiratory Rate [Right Throughout] Blood Pressure 133/36 133/36 145/74 O2 Sat by Pulse 98 98 97 Oximetry 07/31/20 07/31/20 07/31/20 05:11 05:21 05:31 Temperature Pulse Rate 72 72 75 Pulse Rate [ Anterior Bilateral Throughout] Pulse Rate [ From Monitor] Pulse Rate [ Right Throughout] Respiratory 12 14 19 Rate Respiratory Rate [Anterior Bilateral Throughout] Respiratory Rate [Right Throughout] Blood Pressure 145/74 145/74 145/74 O2 Sat by Pulse 98 98 99 Oximetry 07/31/20 07/31/20 07/31/20 05:41 05:51 06:01 Temperature Pulse Rate 73 75 73 Pulse Rate [ Anterior Bilateral Throughout] Pulse Rate [ From Monitor] Pulse Rate [ Right Throughout] Respiratory 18 17 15 Rate Respiratory Rate [Anterior Bilateral Throughout] Respiratory Rate [Right Throughout] Blood Pressure 145/74 145/74 138/33 O2 Sat by Pulse 100 98 98 Oximetry 07/31/20 07/31/20 07/31/20 06:11 06:21 06:31 Temperature Pulse Rate 72 72 74 Pulse Rate [ Anterior Bilateral Throughout] Pulse Rate [ From Monitor] Pulse Rate [ Right Throughout] Respiratory 17 15 13 Rate Respiratory Rate [Anterior Bilateral Throughout] Respiratory Rate [Right Throughout] Blood Pressure 138/33 138/33 138/33 O2 Sat by Pulse 98 90 99 Oximetry 07/31/20 07/31/20 07/31/20 06:41 06:51 07:01 Temperature Pulse Rate 73 74 74 Pulse Rate [ Anterior Bilateral Throughout] Pulse Rate [ From Monitor] Pulse Rate [ Right Throughout] Respiratory 17 12 12 Rate Respiratory Rate [Anterior Bilateral Throughout] Respiratory Rate [Right Throughout] Blood Pressure 138/33 138/33 120/61 O2 Sat by Pulse 98 97 97 Oximetry 07/31/20 07/31/20 07/31/20 07:11 07:21 07:31 Temperature Pulse Rate 74 74 75 Pulse Rate [ Anterior Bilateral Throughout] Pulse Rate [ From Monitor] Pulse Rate [ Right Throughout] Respiratory 16 18 17 Rate Respiratory Rate [Anterior Bilateral Throughout] Respiratory Rate [Right Throughout] Blood Pressure 120/61 120/61 120/61 O2 Sat by Pulse 98 97 98 Oximetry 07/31/20 07/31/2021 07:41 07:51 08:00 Temperature 100.7 F H Pulse Rate 76 76 74 Pulse Rate [ 73 Anterior Bilateral Throughout] Pulse Rate [ From Monitor] Pulse Rate [ 75 Right Throughout] Respiratory 16 18 18 Rate Respiratory 17 Rate [Anterior Bilateral Throughout] Respiratory 16 Rate [Right Throughout] Blood Pressure 120/61 120/61 136/36 O2 Sat by Pulse 99 99 98 Oximetry 07/31/20 07/31/20 07/31/20 08:11 08:21 08:31 Temperature Pulse Rate 74 79 76 Pulse Rate [ Anterior Bilateral Throughout] Pulse Rate [ From Monitor] Pulse Rate [ Right Throughout] Respiratory 18 18 14 Rate Respiratory Rate [Anterior Bilateral Throughout] Respiratory Rate [Right Throughout] Blood Pressure 136/36 136/36 136/36 O2 Sat by Pulse 98 98 98 Oximetry 07/31/20 07/31/20 07/31/20 08:41 08:51 08:54 Temperature Pulse Rate 74 77 Pulse Rate [ Anterior Bilateral Throughout] Pulse Rate [ From Monitor] Pulse Rate [ Right Throughout] Respiratory 16 17 Rate Respiratory Rate [Anterior Bilateral Throughout] Respiratory Rate [Right Throughout] Blood Pressure 136/36 136/36 O2 Sat by Pulse 98 98 99 Oximetry 07/31/20 07/31/20 07/31/20 09:01 09:11 09:21 Temperature Pulse Rate 76 78 76 Pulse Rate [ Anterior Bilateral Throughout] Pulse Rate [ From Monitor] Pulse Rate [ Right Throughout] Respiratory 15 11 L 12 Rate Respiratory Rate [Anterior Bilateral Throughout] Respiratory Rate [Right Throughout] Blood Pressure 147/30 147/30 147/30 O2 Sat by Pulse 98 95 98 Oximetry 07/31/20 07/31/20 07/31/20 09:31 09:41 09:51 Temperature Pulse Rate 74 76 73 Pulse Rate [ Anterior Bilateral Throughout] Pulse Rate [ From Monitor] Pulse Rate [ Right Throughout] Respiratory 21 13 19 Rate Respiratory Rate [Anterior Bilateral Throughout] Respiratory Rate [Right Throughout] Blood Pressure 147/30 147/30 147/30 O2 Sat by Pulse 96 100 Oximetry 07/31/20 07/31/20 07/31/20 10:00 10:11 10:21 Temperature Pulse Rate 73 71 72 Pulse Rate [ Anterior Bilateral Throughout] Pulse Rate [ From Monitor] Pulse Rate [ Right Throughout] Respiratory 20 19 21 Rate Respiratory Rate [Anterior Bilateral Throughout] Respiratory Rate [Right Throughout] Blood Pressure 129/38 147/30 147/30 O2 Sat by Pulse 100 97 90 Oximetry 07/31/20 12:00 Temperature 100.7 F H Pulse Rate Pulse Rate [ Anterior Bilateral Throughout] Pulse Rate [ From Monitor] Pulse Rate [ Right Throughout] Respiratory Rate Respiratory Rate [Anterior Bilateral Throughout] Respiratory Rate [Right Throughout] Blood Pressure O2 Sat by Pulse Oximetry - Lab 07/30/20 04:17 07/31/20 09:03 Most recent lab results ABG pH 7.316 pH Units (7.350-7.450) L 07/29/20 12:55 ABG pCO2 48.6 mm Hg 07/29/20 12:55 ABG pO2 131.0 mm Hg (80.0-90.0) H 07/29/20 12:55 ABG HCO3 24.3 mmol/L (20.0-26.0) 07/29/20 12:55 ABG O2 Saturation 98.3 % (95.0-99.0) 07/29/20 12:55 Calcium 8.0 mg/dL (8.4-10.2) L 07/31/20 09:03 Medications & Allergies - Medications Allergies/Adverse Reactions: Allergies No Known Allergies Allergy (Verified 05/01/15 08:52) Home Medications: Home Medications Medication Instructions Recorded Confirmed Last Taken Type Calcium Acetate [Phoslo] 667 mg PO TID 07/24/20 07/24/20 Unknown History Fenofibrate 160 mg PO QDAY 07/24/20 07/24/20 Unknown History Gabapentin [Neurontin] 100 mg PO Q8HR 07/24/20 07/24/20 Unknown History HYDROcodone/ACETAMINOPHEN 1 each PO Q8HR PRN 07/24/20 07/24/20 Unknown History [Hydrocodone-Acetamin 5-300 mg] Losartan Potassium 100 mg PO QDAY 07/24/20 07/24/20 Unknown History Montelukast [Singulair] 10 mg PO QPM 07/24/20 07/24/20 Unknown History Sevelamer Carbonate [Renvela] 800 mg PO TIDWM 07/24/20 07/24/20 Unknown History Simvastatin 40 mg PO QDAY 07/24/20 07/24/20 Unknown History allopurinoL [Zyloprim] 100 mg PO QDAY 07/24/20 07/24/20 Unknown History traZODone [Desyrel] 50 mg PO QHS 07/24/20 07/24/20 Unknown History traZODone [Desyrel] 50 mg PO QHS 07/24/20 07/24/20 Unknown History Active Medications: Generic Name Dose Route Start Last Admin Trade Name Freq PRN Reason Stop Dose Admin Acetaminophen 650 mg 07/24/20 12:34 Acetaminophen 325 Mg Tab PO Q4H PRN Pain MILD(1-3)/Fever >100.5/ANDRADE Albuterol 2.5 mg 07/24/20 12:30 Albuterol 2.5 Mg/3 Ml Nebu IH Q4HRT PRN Shortness Of Breath Albuterol/Ipratropium 1 ampul 07/29/20 11:00 07/31/20 12:53 Ipratropium/Albuterol Sulfate 3 Ml Ampul.Neb IH 1 ampul TIDRT [facility] Administration Allopurinol 100 mg 07/25/20 10:00 07/31/20 12:13 Allopurinol 100 Mg Tab PO Not Given QDAY [facility] Aspirin 81 mg 07/30/20 16:00 07/31/20 12:12 Aspirin Ec 81 Mg Tab PO Not Given QDAY [facility] Calcium Acetate 667 mg 07/24/20 17:00 07/31/20 12:11 Calcium Acetate 667 Mg Cap PO Not Given TIDWM [facility] Carvedilol 6.25 mg 07/24/20 22:00 07/31/20 12:11 Carvedilol 6.25 Mg Tab PO Not Given BID [facility] Clopidogrel Bisulfate 75 mg 07/31/20 10:00 07/31/20 12:12 Clopidogrel 75 Mg Tab PO Not Given QDAY [facility] Dextrose 50 ml 07/31/20 08:37 07/31/20 08:30 Dextrose 50% In Water (25gm) 50 Ml Syringe IV 50 ml Q30MIN PRN Administration Hypoglycemia Protocol Doxazosin Mesylate 4 mg 07/26/20 10:00 07/31/20 12:11 Doxazosin 4 Mg Tab PO Not Given DAILY [facility] Epoetin Jose 20,000 unit 07/26/20 10:00 07/30/20 21:23 Epoetin Jose 20,000 Unit/1 Ml Inj SUB-Q 20,000 unit Th [facility] Administration Fenofibrate 145 mg 07/25/20 10:00 07/31/20 12:13 Fenofibrate 145 Mg Tab PO Not Given DAILY [facility] Ferrous Sulfate 325 mg 07/24/20 22:00 07/31/20 12:11 Ferrous Sulfate 325 Mg Tab PO Not Given BID [facility] Fish Oil 1,000 mg 07/25/20 10:00 07/31/20 12:12 [place]ress-3 Fatty Acids/Fish Oil 1 Gram Cap PO Not Given DAILY [facility] Gabapentin 100 mg 07/24/20 22:00 07/31/20 08:43 Gabapentin 100 Mg Cap PO Not Given Q8HR [facility] Hydralazine HCl 50 mg 07/28/20 22:00 07/31/20 08:43 Hydralazine 25 Mg Tab PO Not Given Q8HR [facility] Hydralazine HCl 10 mg 07/28/20 16:22 07/28/20 19:01 Hydralazine 20 Mg/1 Ml Inj IV 10 mg Q6H PRN Administration Blood Pressure Piperacillin Sod/Tazobactam Sod 2.25 gm in 50 mls @ 100 mls/hr 07/25/20 11:00 07/31/20 12:13 Zosyn/Ns 2.25 Gm/50ml IV 100 mls/hr Q8H [facility] Administration Sodium Chloride 100 mls @ 999 mls/hr 07/25/20 14:30 Nacl 0.9% IV PETTY PRN Hypotension Dextrose 1,000 mls @ 75 mls/hr 07/31/20 12:00 D10w IV DIRECT [facility] Losartan Potassium 100 mg 07/25/20 10:00 07/31/20 12:11 Losartan 50 Mg Tab PO Not Given QDAY [facility] Montelukast Sodium 10 mg 07/24/20 18:00 07/31/20 08:43 Montelukast 10 Mg Tab PO Not Given QPM [facility] Morphine Sulfate 2 mg 07/31/20 01:37 Morphine 2 Mg/1 Ml Inj IV Q6H PRN Pain , Severe (7-10) Multivit/Ca Carb/B Cmplx/FA/Prenat 1 cap 07/26/20 10:00 07/31/20 12:12 Folic Acid/Vit B Comp W-C 1 Mg (Renal Caps) PO Not Given QDAY [facility] Multivitamins/Minerals 1 each 07/25/20 10:00 07/31/20 12:12 Multivitamins,Ther W-Minerals Tab PO Not Given QDAY [facility] Ondansetron HCl 4 mg 07/24/20 12:00 Ondansetron 4 Mg/2 Ml Inj IV Q8H PRN Nausea And Vomiting Oxycodone/Acetaminophen 1 tab 07/24/20 12:30 07/25/20 00:30 Oxycodone /Acetaminophen 5-325mg Tab PO 1 tab Q6H PRN Administration Pain, Moderate (4-6) Pravastatin Sodium 80 mg 07/24/20 22:00 07/30/20 22:05 Pravastatin 80 Mg Tab PO 80 mg QHS [facility] Administration Sevelamer Carbonate 800 mg 07/24/20 17:00 07/31/20 12:11 Sevelamer Carbonate 800 Mg Tab PO Not Given TIDWM [facility] Sodium Chloride 10 ml 07/24/20 12:30 07/31/20 12:12 Sodium Chloride 0.9% 10 Ml Flush Syringe IV Not Given BID [facility] Sodium Chloride 10 ml 07/24/20 12:30 07/24/20 12:39 Sodium Chloride 0.9% 10 Ml Flush Syringe IV 10 ml PRN PRN Administration LINE FLUSH Trazodone HCl 50 mg 07/24/20 22:00 07/30/20 22:06 Trazodone 50 Mg Tab PO 50 mg QHS [facility]AD[facility] Administration
[2020-07-31] MEDS ORDERED: ACETAMINOPHEN 650 MG RECT SUPP PR PRN (13:52)
--- NOTE | 2020-07-31 13:56 | Progress Note ---
Assessment and Plan Cultures: 07/24/2020 blood culture: No growth A/P: 80-year-old male with ESRD on HD, diabetes, hypertension, prior CVA, vascular dementia: #Left foot cellulitis with gangrenous changes involving 1st and 2nd toes: Vascular following. Continue empiric antibiotics for now. Underwent re-vasc on 07/30/2020. #Acute encephalopathy: Neurology on board. MRI brain with advanced volume loss, no acute findings. #ESRD on HD: Renally dose antibiotics. Recs: -Continue renally dosed Zosyn, Vancomycin, D7 today Arben Payne MD, FACP [facility] ([facility] O: [phone] F: [phone] Subjective Date of service: 07/31/20 Principal diagnosis: Peripheral vascular disease with gangrene Interval history: Patient with low grade fever. Now in IMCU post procedure yesterday. Confused. Objective - Exam Narrative Exam: Physical Exam: Constitutional: sleepy, confused Head, Ears, Nose: Normocephalic, atraumatic. External ears, nose normal Eyes: Conjunctivae/corneas clear. No icterus. No ptosis. Neck: Supple, no meningeal signs Cardiovascular: S1, S2 normal. Respiratory: Good air entry, clear to auscultation bilaterally GI: Soft, non-tender; bowel sounds normal. No peritoneal signs Musculoskeletal: Left great toe and second toe with gangrenous change Skin: Scabs on bilateral feet. Hem/Lymphatic: No palpable cervical or supraclavicular nodes. No lymphangitis Psych: Confused, no agitation Neurological: drowsy. confused - Constitutional Vitals: Vital Signs Temp Pulse Resp BP Pulse Ox 100.7 F H 72 11 L 116/31 94 07/31/20 12:00 07/31/20 13:31 07/31/20 13:31 07/31/20 13:31 07/31/20 13:31 Temperature -Last 24 Hours Temperature 100.7 F Temperature 100.7 F Temperature 99 F Temperature 98.8 F Temperature 97.8 F Temperature 98.3 F Temperature 97.8 F Temperature 97.7 F - Labs CBC & Chem 7: 07/30/20 04:17 07/31/20 09:03 Labs: Abnormal lab results 07/30/20 07/30/20 07/31/20 Range/Units 16:33 21:25 07:26 Potassium 5.4 H (3.6-5.0) mmol/L BUN 50 H (9-20) mg/dL Creatinine 5.8 H (0.8-1.3) mg/dL Glucose 112 H (75-100) mg/dL POC Glucose 123 H 59 L (70-105) mg/dL Calcium 8.1 L (8.4-10.2) mg/dL 07/31/20 Range/Units 09:03 Potassium (3.6-5.0) mmol/L BUN 29 H (9-20) mg/dL Creatinine 4.3 H (0.8-1.3) mg/dL Glucose 106 H (75-100) mg/dL POC Glucose (70-105) mg/dL Calcium 8.0 L (8.4-10.2) mg/dL
[2020-07-31 14:37] LABS: Basophils # (Auto) 0.1 K/mm3 (0.0-0.1); Basophils % (Auto) 1.5 % (0.0-1.8); Eosinophils # (Auto) 0.1 K/mm3 (0.0-0.4); Eosinophils % (Auto) 0.9 % (0.0-4.3); Hematocrit 26.6 % (35.5-45.6); Hemoglobin 8.7 gm/dl (11.8-15.2); Lymphocytes # (Auto) 1.4 K/mm3 (1.2-5.4); Lymphocytes % (Auto) 14.2 % (13.4-35.0); Mean Corpuscular HGB Conc 33 % (32-34); Mean Corpuscular Volume 97 fl (84-94); Monocytes # (Auto) 0.8 K/mm3 (0.0-0.8); Monocytes % (Auto) 8.7 % (0.0-7.3); Platelet Count 200 K/mm3 (140-440); Red Blood Count 2.73 M/mm3 (3.65-5.03); Red Cell Distribution Width 15.3 % (13.2-15.2)
--- NOTE | 2020-07-31 15:55 | Cat Scan Report ---
. CT HEAD WITHOUT CONTRAST HISTORY: Altered mental status. TECHNIQUE: Axial imaging performed from the skull apex through the skull base without the use of con trast. All CT scans at this location are performed using CT dose reduction for ALARA by means of aut omated exposure control. COMPARISON: 07/24/2020 FINDINGS: Parenchyma: No acute intracranial hemorrhage or parenchymal abnormality. Mild diffuse volume loss. Mild hypoattenuation throughout the white matter is noted and consistent with chronic microvascular i schemic disease. Ventricles: There is mild diffuse brain atrophy with commensurate ventricular enlargement which is l ikely age appropriate. Soft tissues: Soft tissues including the orbits appear normal. Bones: No acute osseous abnormality. Sinuses: Sinuses and mastoid air cells are clear. IMPRESSION: No acute abnormality. Age related changes which are unchanged since 07/24/2020. Signer Name: Saman Baeza Jr, MD Signed: 07/31/2020 3:50 PM Workstation Name: [id number]
[2020-07-31] MEDS: traZODone 50 MG TAB PO SCH (21:06)
[2020-07-31] MEDS: PRAVASTATIN 80 MG TAB PO SCH (21:06)
[2020-08-01] MEDS: DEXTROSE 10% IN WATER 1,000 ML IV SCH ×2 (02:38→21:57)
[2020-08-01] MEDS: PIPERACIL-TAZO 2.25 GM/50 ML 2.25 GM/50 ML BAG IV SCH ×3 (03:45→21:59)
[2020-08-01] MEDS: IPRATROPIUM/ALBUTEROL SULFATE 3 ML AMPUL.NEB IH SCH ×3 (08:16→21:02)
[2020-08-01] MEDS ORDERED: SODIUM CHLORIDE 0.9% 100 ML IV PRN (09:55)
--- NOTE | 2020-08-01 12:28 | Progress Note ---
Assessment and Plan Assessment and plan: 80 YO Male with ESRD on HD (M, W, F), HTN, DM, Vascular Dementia, Cerebral Atherosclerosis presents to ED for evaluation. Patient is confused and unable to provide detailed history at time of exam. Patient caregiver is at bedside during exam and interview and provides history. As per the patient's the patient has experienced increased weakness and confusion over the past 1 month with increased bedbound status. Patient was seen and evaluated by his vascular surgeon today and was found to have left foot cellulitis. Patient was instructed to seek further care at [facility]. Patient transported to [facility] via private vehicle for further care and evaluation of the aforementioned symptoms. The patient was seen and evaluated in the emergency department. All lab and imaging studies reviewed. Patient found to have end-stage renal disease, left foot cellulitis complicated by systemic inflammatory response syndrome, as well as peripheral vascular disease. Patient admitted to medical floor and initiated on IV antibiotic therapy. Nephrology team consulted in ED. Vascular surgery team consulted in ED. No further history is obtainable. No reports of fever, chills, chest pain, palpitation, productive cough, skin rash, syncope, trauma, recent ill contacts, or known exposure to COVID-19. Patient is unable to provide history but has a positive gag reflex and is able to protect his airway without difficulty at the time my evaluation. Prior admission on 07/05/2019 reviewed. All medication listed at time of admission has been reconciled. Advanced care planning conducted in ED. CT: Head: Negative for acute pathology. 33: Discussed with the IR, patient with new onset Altered mental status from the last time they saw the patient. Will begin work-up for possible underlying sepsis etiology or source unknown at this time. Will obtain ID consulted and Neurology. Continue abx, attempted to reach family. Concern for stroke is low but considering hx of vasculopathy will obtain Neurol ogy Will also obtain wound consultation. 3/4: Some improvement noted with initiation of antibiotics. We will continue current management patient continues on hemodialysis. Will await further vascul ar improvement as patient is beginning to show some improvement. Discussed with case management. Apparently the person that came with the patient is not the patient's but a caregiver H&P portion of this note has been corrected. Continue wound care and every 2 hours turns. 5: Continue current management plan. Vascular to re-evaluate. Continue abx. MRI with no acute pathology. Agree with the D5 as patient still has some intermittent confusion. Continue to monitor. Speech evaluation for swallow management. 07/28: Patient clinically stable, continue supportive care, abx, awaiting full vascular input. cONTINUE D5 for now. 07/29: We will give patient dose of Lasix, get a chest x-ray. Discussed with nursing staff could be that the patient was appear hypoxic due to cold extremities. Will obtain an ABG. We will also obtain a pulmonary consult for clearance for anticipated vascular procedure in a.m. 07/30: Noted hypoglycemia this morning we will give D50 and amp. Patient is for procedure today. Discussed with vascular. Per discussion with nursing saturation has improved. Pulmonary input is noted. He was admitted for digital gangrene on multiple digits both fingers and toes. Was also noted to be septic requiring treatment which has led to improvement in his mental status. 07/31. Now status post angiography and angioplasty of distal femoral arteries. Now on antiplatelets. He has been having episodes of hypoglycemia. Started him on D10 water. Continue to monitor closely for now. CT head ordered to rule out any CVA though not likely. Vascular surgery following. 08/01. Patient remains lethargic. Discontinued pain medications and gabapentin. On IV antibiotics. Started on D10 water yesterday for hypoglycemia. If lethargy does not improve, will place an NG tube. CT head negative for any stroke. Assessment (1) Sepsis Current Visit: Yes Status: Acute Plan to address problem: CBC, CMP, empiric IV antibiotic therapy x1 dose, repeat CBC in a.m. (2) End stage renal disease Current Visit: No Status: Acute Plan to address problem: Nephrology team consulted in ED, dialysis as per renal team. (3) Cellulitis/ left first digit gangrene Current Visit: Yes Status: Acute Qualifiers: Site of cellulitis of extremity: lower extremity Laterality: left Plan to address problem: CBC, CMP, IV antibiotic therapy, supportive care, wound care consulted. (4) Peripheral vascular disease Current Visit: Yes Status: Acute Plan to address problem: Vascular surgery consulted, continue medical management. (5) Acute metabolic encephalopathy Current Visit: No Status: Acute Plan to address problem: CT head, neuro check, seizure precautions, aspiration precautions, fall precautions. (6) Vascular dementia Current Visit: Yes Status: Acute Qualifiers: Dementia behavioral disturbance: without behavioral disturbance Qualified Code(s): F01.50 - Vascular dementia without behavioral disturbance Plan to address problem: Verbal prompting, verbal redirection, benzodiazepine therapy as clinically indicated. (7) Cerebral atherosclerosis Current Visit: Yes Status: Acute Plan to address problem: Antiplatelet therapy, risk factor reduction, supportive care. (8)Moderate protein calorie malnutrition (9) acute hypoxia with respiratory failure (10) Stage 1 pressure ulcer sacrum (10) Advance care planning Current Visit: No Status: Acute Plan to address problem: Disease education conducted, care plan discussed, diagnosis discussed, patient is full code, patient knowledges understanding and agreement with care plan, +30 minutes. (11) DVT prophylaxis Current Visit: No Status: Acute Plan to address problem: SCD to bilateral lower extremities while in bed, prophylactic anticoagulation. History Interval history: Patient seen and examined. Status post angiography with angioplasty of the distal femoral vessels. Lethargic this AM. CT head negative. Hospitalist Physical - Physical exam Narrative exam: VITAL SIGNS: Reviewed. GENERAL: Sleepy HEAD: No signs of head trauma. EYES: Pupils are equal. Extraocular motions intact. MOUTH: Oropharynx is normal. NECK: No adenopathy, no JVD. CHEST: Chest with diminished breath sounds bilaterally. No wheezes, rales, or rhonchi. CARDIAC: normal S1 and S2, without murmurs, gallops, or rubs. ABDOMEN: Soft, non tender and non distended. No rebound or guarding, and no masses palpated. Bowel Sounds normal. MUSCULOSKELETAL: LLE: Gangrenous looking big toe, proximal area of the leg feels warm to touch. NEUROLOGIC EXAM: Sleepy no focal neurologic deficits SKIN: No obvious lesions - Constitutional Vitals: Temp Pulse Resp BP Pulse Ox 98.9 F 65 14 146/44 100 08/01/20 08:00 08/01/20 11:40 08/01/20 11:40 08/01/20 11:40 08/01/20 11:40 Results - Labs CBC & Chem 7: 07/31/20 14:09 08/01/20 13:49 Labs: Laboratory Last Values WBC 9.6 K/mm3 (4.5-11.0) 07/31/20 14:09 RBC 2.73 M/mm3 (3.65-5.03) L 07/31/20 14:09 Hgb 8.7 gm/dl (11.8-15.2) L 07/31/20 14:09 Hct 26.6 % (35.5-45.6) L 07/31/20 14:09 MCV 97 fl (84-94) H 07/31/20 14:09 MCH 32 pg (28-32) 07/31/20 14:09 MCHC 33 % (32-34) 07/31/20 14:09 RDW 15.3 % (13.2-15.2) H 07/31/20 14:09 Plt Count 200 K/mm3 (140-440) 07/31/20 14:09 Lymph % (Auto) 14.2 % (13.4-35.0) 07/31/20 14:09 Toombs % (Auto) 8.7 % (0.0-7.3) H 07/31/20 14:09 Eos % (Auto) 0.9 % (0.0-4.3) 07/31/20 14:09 Baso % (Auto) 1.5 % (0.0-1.8) 07/31/20 14:09 Lymph # (Auto) 1.4 K/mm3 (1.2-5.4) 07/31/20 14:09 Toombs # (Auto) 0.8 K/mm3 (0.0-0.8) 07/31/20 14:09 Eos # (Auto) 0.1 K/mm3 (0.0-0.4) 07/31/20 14:09 Baso # (Auto) 0.1 K/mm3 (0.0-0.1) 07/31/20 14:09 Seg Neutrophils % 74.7 % (40.0-70.0) H 07/31/20 14:09 Seg Neutrophils # 7.2 K/mm3 (1.8-7.7) 07/31/20 14:09 PT 13.5 Sec. (12.2-14.9) 07/24/20 08:40 INR 1.04 (0.87-1.13) 07/24/20 08:40 APTT 45.0 Sec. (24.2-36.6) H 07/24/20 08:40 ABG pH 7.316 pH Units (7.350-7.450) L 07/29/20 12:55 ABG pCO2 48.6 mm Hg 07/29/20 12:55 ABG pO2 131.0 mm Hg (80.0-90.0) H 07/29/20 12:55 ABG HCO3 24.3 mmol/L (20.0-26.0) 07/29/20 12:55 ABG O2 Saturation 98.3 % (95.0-99.0) 07/29/20 12:55 ABG O2 Content 13.1 (0.0-44) 07/29/20 12:55 ABG Base Excess -2.0 mmol/L (-2.0-3.0) 07/29/20 12:55 ABG Hemoglobin 9.4 gm/dl (14.0-18.0) L 07/29/20 12:55 ABG Carboxyhemoglobin 1.1 % (0.0-5.0) 07/29/20 12:55 ABG Methemoglobin 0.6 % (0.0-1.5) 07/29/20 12:55 Oxyhemoglobin 96.7 % (95.0-99.0) 07/29/20 12:55 FiO2 32 % 07/29/20 12:55 Sodium 140 mmol/L (137-145) 07/31/20 09:03 Potassium 4.3 mmol/L (3.6-5.0) D 07/31/20 09:03 Chloride 104.1 mmol/L (98-107) 07/31/20 09:03 Carbon Dioxide 26 mmol/L (22-30) 07/31/20 09:03 Anion Gap 14 mmol/L 07/31/20 09:03 BUN 29 mg/dL (9-20) H 07/31/20 09:03 Creatinine 4.3 mg/dL (0.8-1.3) H 07/31/20 09:03 Estimated GFR 13 ml/min 07/31/20 09:03 BUN/Creatinine Ratio 7 % 07/31/20 09:03 Glucose 106 mg/dL (75-100) H 07/31/20 09:03 POC Glucose 109 mg/dL (70-105) H 08/01/20 10:42 Lactic Acid 0.90 mmol/L (0.7-2.0) 07/24/20 10:20 Calcium 8.0 mg/dL (8.4-10.2) L 07/31/20 09:03 Prealbumin 0.116 g/L (0.200-0.400) L 07/27/20 16:25 Vitamin B12 980.0 pg/mL (211-911) H 07/27/20 16:25 Folate 12.73 ng/mL (7.3-26.0) 07/27/20 16:25 Nasal Screen MRSA (PCR) Negative (Negative) 07/24/20 Unknown Random Vancomycin 20.7 ug/mL (0-40.0) 08/01/20 05:16 Copper 113 mcg/dL (70-175) 07/27/20 16:25 Hepatitis A IgM Ab Non-reactive (NonReactive) 07/25/20 15:30 Hep Bs Antigen Non-reactive (Negative) 07/25/20 15:30 Hep B Core IgM Ab Non-reactive (NonReactive) 07/25/20 15:30 Hepatitis C Antibody Non-reactive (NonReactive) 07/25/20 15:30 Jaimes/IV: Voiding Method Diaper Active Medications - Current Medications Current Medications: Generic Name Dose Route Start Last Admin Trade Name Freq PRN Reason Stop Dose Admin Acetaminophen 650 mg 07/24/20 12:34 Acetaminophen 325 Mg Tab PO Q4H PRN Pain MILD(1-3)/Fever >100.5/ANDRADE Acetaminophen 650 mg 07/31/20 13:52 07/31/20 16:11 Acetaminophen 650 Mg Rect Supp VA 650 mg Q4H PRN Administration Fever >101 Albuterol 2.5 mg 07/24/20 12:30 Albuterol 2.5 Mg/3 Ml Nebu IH Q4HRT PRN Shortness Of Breath Albuterol/Ipratropium 1 ampul 07/29/20 11:00 08/01/20 08:16 Ipratropium/Albuterol Sulfate 3 Ml Ampul.Neb IH 1 ampul TIDRT SADAF Administration Allopurinol 100 mg 07/25/20 10:00 07/31/20 12:13 Allopurinol 100 Mg Tab PO Not Given QDAY SADAF Aspirin 81 mg 07/30/20 16:00 07/31/20 12:12 Aspirin Ec 81 Mg Tab PO Not Given QDAY SADAF Calcium Acetate 667 mg 07/24/20 17:00 07/31/20 16:10 Calcium Acetate 667 Mg Cap PO Not Given TIDWM [facility] Carvedilol 6.25 mg 07/24/20 22:00 07/31/20 21:06 Carvedilol 6.25 Mg Tab PO Not Given BID SADAF Clopidogrel Bisulfate 75 mg 07/31/20 10:00 07/31/20 12:12 Clopidogrel 75 Mg Tab PO Not Given QDAY SADAF Dextrose 50 ml 07/31/20 08:37 07/31/20 16:11 Dextrose 50% In Water (25gm) 50 Ml Syringe IV 50 ml Q30MIN PRN Administration Hypoglycemia Protocol Doxazosin Mesylate 4 mg 07/26/20 10:00 07/31/20 12:11 Doxazosin 4 Mg Tab PO Not Given DAILY SADAF Epoetin Jose 20,000 unit 07/26/20 10:00 07/30/20 21:23 Epoetin Jose 20,000 Unit/1 Ml Inj SUB-Q 20,000 unit Th SADAF Administration Fenofibrate 145 mg 07/25/20 10:00 07/31/20 12:13 Fenofibrate 145 Mg Tab PO Not Given DAILY [facility] Ferrous Sulfate 325 mg 07/24/20 22:00 07/31/20 21:06 Ferrous Sulfate 325 Mg Tab PO Not Given BID [facility] Fish Oil 1,000 mg 07/25/20 10:00 07/31/20 12:12 [place]-3 Fatty Acids/Fish Oil 1 Gram Cap PO Not Given DAILY [facility] Gabapentin 100 mg 07/24/20 22:00 07/31/20 21:06 Gabapentin 100 Mg Cap PO Not Given Q8HR [facility] Hydralazine HCl 50 mg 07/28/20 22:00 07/31/20 21:06 Hydralazine 25 Mg Tab PO Not Given Q8HR [facility] Hydralazine HCl 10 mg 07/28/20 16:22 07/28/20 19:01 Hydralazine 20 Mg/1 Ml Inj IV 10 mg Q6H PRN Administration Blood Pressure Piperacillin Sod/Tazobactam Sod 2.25 gm in 50 mls @ 100 mls/hr 07/25/20 11:00 08/01/20 03:45 Zosyn/Ns 2.25 Gm/50ml IV 100 mls/hr Q8H SADAF Administration Dextrose 1,000 mls @ 75 mls/hr 07/31/20 12:00 08/01/20 02:38 D10w IV 75 mls/hr DIRECT [facility] Administration Sodium Chloride 100 mls @ 999 mls/hr 08/01/20 09:55 Nacl 0.9% IV PETTY PRN Hypotension Losartan Potassium 100 mg 07/25/20 10:00 07/31/20 12:11 Losartan 50 Mg Tab PO Not Given QDAY [facility] Montelukast Sodium 10 mg 07/24/20 18:00 07/31/20 18:51 Montelukast 10 Mg Tab PO Not Given QPM [facility] Morphine Sulfate 2 mg 07/31/20 01:37 Morphine 2 Mg/1 Ml Inj IV Q6H PRN Pain , Severe (7-10) Multivit/Ca Carb/B Cmplx/FA/Prenat 1 cap 07/26/20 10:00 07/31/20 12:12 Folic Acid/Vit B Comp W-C 1 Mg (Renal Caps) PO Not Given QDAY [facility] Multivitamins/Minerals 1 each 07/25/20 10:00 07/31/20 12:12 Multivitamins,Ther W-Minerals Tab PO Not Given QDAY [facility] Ondansetron HCl 4 mg 07/24/20 12:00 Ondansetron 4 Mg/2 Ml Inj IV Q8H PRN Nausea And Vomiting Oxycodone/Acetaminophen 1 tab 07/24/20 12:30 07/25/20 00:30 Oxycodone /Acetaminophen 5-325mg Tab PO 1 tab Q6H PRN Administration Pain, Moderate (4-6) Pravastatin Sodium 80 mg 07/24/20 22:00 07/31/20 21:06 Pravastatin 80 Mg Tab PO Not Given QHS [facility] Sevelamer Carbonate 800 mg 07/24/20 17:00 07/31/20 16:10 Sevelamer Carbonate 800 Mg Tab PO Not Given TIDWM SADAF Sodium Chloride 10 ml 07/24/20 12:30 07/31/20 21:07 Sodium Chloride 0.9% 10 Ml Flush Syringe IV 10 ml BID SADAF Administration Sodium Chloride 10 ml 07/24/20 12:30 07/24/20 12:39 Sodium Chloride 0.9% 10 Ml Flush Syringe IV 10 ml PRN PRN Administration LINE FLUSH Trazodone HCl 50 mg 07/24/20 22:00 07/31/20 21:06 Trazodone 50 Mg Tab PO Not Given QHS [facility] Nutrition/Malnutrition Assess - Dietary Evaluation Nutrition/Malnutrition Findings: Nutrition Notes Start: 07/25/20 13:43 Freq: Status: Active Protocol: Document 08/01/20 08:52 LP (Rec: 08/01/20 09:05 LP [id number]) Nutrition Notes Initial or Follow up Reassessment Current Diagnosis CKD (stage V CKD),Decubitus( Pressure Ulcer),Diabetes, Sepsis Other Pertinent Diagnosis on HD, Cellulitis, Gangrene, Cerebral Atherosclerosis Current Diet NPO Labs/Tests Reviewed Pertinent Medications D10 at 75ml/hr Height 5 ft 9 in Weight 80.4 kg [place] Body Weight (kg) 72.72 BMI 26.2 Weight change and time frame Wt fluctuation expected with renal Weight Status Overweight Subjective/Other Information Pt remains NPO. SESSIONS CLERK recommends NPO due to delayed swallowing . Burn Absent Trauma Absent Skin Integrity/Comment Diabetic Ulcer Minimum of two criteria No physical signs of malnutrition #3 Nutrition Diagnosis Inadequate energy intake As Evidenced by Signs and Symptoms SESSIONS CLERK recommends NPO due to delayed swallowing Diagnosis Progress(for reassessment Worsened documentation) #2 Nutrition Diagnosis Increased nutrient needs ( specify in comment below) Comments: protein Diagnosis Progress(for reassessment Continues documentation) Is patient on ventilator? No Is Patient Ambulatory and/or Out of Bed No REE-([facility]-confined to bed) 9420.087 Calculation Used for Recommendations [facility] Additional Notes PRO needs: >87g (>1.2 g/kg) Fluid needs: Urine output + 1000 mL or per MD Nutrition Intervention Change Diet Order: TF per SESSIONS CLERK or comfort measures Nutrition Support: Once PEG is placed Nepro at 42ml/hr Flush with 150ml q4h Kcal 1,814 Protein (gm) 82 Fluid (mL) 733 Add Supplement/Snack (indicate name/kcal D/C /protein ) Goal #1 PEG placement or comfort measures Goal #2 Wound healing Anticipated Discharge Needs: Unable to determine at this time Follow-Up By: 08/03/20 Additional Comments Follow for POC
--- NOTE | 2020-08-01 12:32 | Progress Note ---
Assessment and Plan Vascular today, follow up any new recs Continue supplemental O2 Will follow. Subjective Date of service: 08/01/20 Principal diagnosis: Peripheral vascular disease with gangrene Interval history: No acute events. Pulm status is stable. Objective Vital Signs - 12hr 08/01/20 08/01/20 08/01/20 00:40 00:50 01:00 Temperature Pulse Rate 67 67 65 Pulse Rate [ Anterior Bilateral Throughout] Pulse Rate [ From Monitor] Respiratory 12 18 13 Rate Respiratory Rate [Anterior Bilateral Throughout] Blood Pressure 139/94 139/94 145/44 O2 Sat by Pulse 99 100 96 Oximetry 08/01/20 08/01/20 08/01/20 01:10 01:20 01:30 Temperature Pulse Rate 68 65 66 Pulse Rate [ Anterior Bilateral Throughout] Pulse Rate [ From Monitor] Respiratory 13 12 14 Rate Respiratory Rate [Anterior Bilateral Throughout] Blood Pressure 145/44 145/44 150/42 O2 Sat by Pulse 97 100 98 Oximetry 08/01/20 08/01/20 08/01/20 01:40 01:50 02:00 Temperature Pulse Rate 63 66 67 Pulse Rate [ Anterior Bilateral Throughout] Pulse Rate [ From Monitor] Respiratory 12 13 13 Rate Respiratory Rate [Anterior Bilateral Throughout] Blood Pressure 150/42 150/42 151/43 O2 Sat by Pulse 98 94 100 Oximetry 08/01/20 08/01/20 08/01/20 02:10 02:20 02:30 Temperature Pulse Rate 66 66 66 Pulse Rate [ Anterior Bilateral Throughout] Pulse Rate [ From Monitor] Respiratory 12 13 11 L Rate Respiratory Rate [Anterior Bilateral Throughout] Blood Pressure 151/43 151/43 140/38 O2 Sat by Pulse 100 98 100 Oximetry 08/01/20 08/01/20 08/01/20 02:40 02:50 03:00 Temperature Pulse Rate 70 66 66 Pulse Rate [ Anterior Bilateral Throughout] Pulse Rate [ From Monitor] Respiratory 12 11 L 11 L Rate Respiratory Rate [Anterior Bilateral Throughout] Blood Pressure 140/38 140/38 140/38 O2 Sat by Pulse 99 99 99 Oximetry 08/01/20 08/01/20 08/01/20 03:10 03:20 03:30 Temperature Pulse Rate 62 66 67 Pulse Rate [ Anterior Bilateral Throughout] Pulse Rate [ From Monitor] Respiratory 14 12 13 Rate Respiratory Rate [Anterior Bilateral Throughout] Blood Pressure 131/50 131/50 131/50 O2 Sat by Pulse 97 99 93 Oximetry 08/01/20 08/01/20 08/01/20 03:40 03:50 04:00 Temperature 98.3 F Pulse Rate 66 68 65 Pulse Rate [ Anterior Bilateral Throughout] Pulse Rate [ 78 From Monitor] Respiratory 13 12 16 Rate Respiratory Rate [Anterior Bilateral Throughout] Blood Pressure 81/39 129/49 140/56 O2 Sat by Pulse 99 82 L 100 Oximetry 08/01/20 08/01/20 08/01/20 04:10 04:20 04:30 Temperature Pulse Rate 66 65 67 Pulse Rate [ Anterior Bilateral Throughout] Pulse Rate [ From Monitor] Respiratory 14 12 12 Rate Respiratory Rate [Anterior Bilateral Throughout] Blood Pressure 140/56 140/56 157/45 O2 Sat by Pulse 100 100 100 Oximetry 08/01/20 08/01/20 08/01/20 04:40 04:50 05:00 Temperature Pulse Rate 69 68 68 Pulse Rate [ Anterior Bilateral Throughout] Pulse Rate [ From Monitor] Respiratory 14 12 11 L Rate Respiratory Rate [Anterior Bilateral Throughout] Blood Pressure 157/45 157/45 125/55 O2 Sat by Pulse 100 100 100 Oximetry 08/01/20 08/01/20 08/01/20 05:10 05:20 05:30 Temperature Pulse Rate 66 66 67 Pulse Rate [ Anterior Bilateral Throughout] Pulse Rate [ From Monitor] Respiratory 12 15 11 L Rate Respiratory Rate [Anterior Bilateral Throughout] Blood Pressure 125/55 125/55 81/48 O2 Sat by Pulse 100 100 100 Oximetry 08/01/20 08/01/20 08/01/20 05:40 05:50 06:00 Temperature Pulse Rate 67 68 67 Pulse Rate [ Anterior Bilateral Throughout] Pulse Rate [ From Monitor] Respiratory 11 L 18 17 Rate Respiratory Rate [Anterior Bilateral Throughout] Blood Pressure 81/48 145/42 138/39 O2 Sat by Pulse 100 100 100 Oximetry 08/01/20 08/01/20 08/01/20 06:10 06:20 06:30 Temperature Pulse Rate 66 63 67 Pulse Rate [ Anterior Bilateral Throughout] Pulse Rate [ From Monitor] Respiratory 11 L 18 11 L Rate Respiratory Rate [Anterior Bilateral Throughout] Blood Pressure 138/39 138/39 136/40 O2 Sat by Pulse 100 100 100 Oximetry 08/01/20 08/01/20 08/01/20 06:40 06:50 07:00 Temperature Pulse Rate 64 63 65 Pulse Rate [ Anterior Bilateral Throughout] Pulse Rate [ From Monitor] Respiratory 12 11 L 12 Rate Respiratory Rate [Anterior Bilateral Throughout] Blood Pressure 136/40 136/40 151/40 O2 Sat by Pulse 100 100 100 Oximetry 08/01/20 08/01/20 08/01/20 07:10 07:20 07:30 Temperature Pulse Rate 64 64 65 Pulse Rate [ Anterior Bilateral Throughout] Pulse Rate [ From Monitor] Respiratory 13 14 12 Rate Respiratory Rate [Anterior Bilateral Throughout] Blood Pressure 151/40 151/40 151/40 O2 Sat by Pulse 100 100 100 Oximetry 08/01/20 08/01/20 08/01/20 07:40 07:50 08:00 Temperature 97.9 F Pulse Rate 66 64 65 Pulse Rate [ Anterior Bilateral Throughout] Pulse Rate [ From Monitor] Respiratory 15 12 13 Rate Respiratory Rate [Anterior Bilateral Throughout] Blood Pressure 121/48 121/48 131/43 O2 Sat by Pulse 97 96 94 Oximetry 08/01/20 08/01/20 08/01/20 08:10 08:16 08:20 Temperature Pulse Rate 61 63 Pulse Rate [ 60 Anterior Bilateral Throughout] Pulse Rate [ From Monitor] Respiratory 11 L 14 Rate Respiratory 16 Rate [Anterior Bilateral Throughout] Blood Pressure 131/43 131/43 O2 Sat by Pulse 94 98 Oximetry 08/01/20 08/01/20 08/01/20 08:30 08:40 08:50 Temperature Pulse Rate 60 63 65 Pulse Rate [ Anterior Bilateral Throughout] Pulse Rate [ From Monitor] Respiratory 15 12 16 Rate Respiratory Rate [Anterior Bilateral Throughout] Blood Pressure 146/117 146/117 146/117 O2 Sat by Pulse 99 91 99 Oximetry 08/01/20 08/01/20 08/01/20 09:00 09:10 09:11 Temperature Pulse Rate 62 63 Pulse Rate [ Anterior Bilateral Throughout] Pulse Rate [ From Monitor] Respiratory 13 14 Rate Respiratory Rate [Anterior Bilateral Throughout] Blood Pressure 146/55 146/55 O2 Sat by Pulse 95 98 99 Oximetry 08/01/20 08/01/20 08/01/20 09:20 09:30 09:40 Temperature Pulse Rate 60 59 L 63 Pulse Rate [ Anterior Bilateral Throughout] Pulse Rate [ From Monitor] Respiratory 12 13 18 Rate Respiratory Rate [Anterior Bilateral Throughout] Blood Pressure 146/55 147/53 147/53 O2 Sat by Pulse 97 93 99 Oximetry 08/01/20 08/01/20 08/01/20 09:50 10:00 10:10 Temperature Pulse Rate 65 66 64 Pulse Rate [ Anterior Bilateral Throughout] Pulse Rate [ From Monitor] Respiratory 14 13 13 Rate Respiratory Rate [Anterior Bilateral Throughout] Blood Pressure 147/53 147/53 140/48 O2 Sat by Pulse 94 94 99 Oximetry 08/01/20 08/01/20 08/01/20 10:20 10:30 10:40 Temperature Pulse Rate 61 65 65 Pulse Rate [ Anterior Bilateral Throughout] Pulse Rate [ From Monitor] Respiratory 12 13 13 Rate Respiratory Rate [Anterior Bilateral Throughout] Blood Pressure 140/48 139/45 139/45 O2 Sat by Pulse 98 97 98 Oximetry 08/01/20 08/01/20 08/01/20 10:50 11:00 11:10 Temperature Pulse Rate 64 65 64 Pulse Rate [ Anterior Bilateral Throughout] Pulse Rate [ From Monitor] Respiratory 14 13 14 Rate Respiratory Rate [Anterior Bilateral Throughout] Blood Pressure 139/45 141/43 141/43 O2 Sat by Pulse 99 97 98 Oximetry 08/01/20 08/01/20 08/01/20 11:20 11:30 11:40 Temperature Pulse Rate 65 65 65 Pulse Rate [ Anterior Bilateral Throughout] Pulse Rate [ From Monitor] Respiratory 13 14 14 Rate Respiratory Rate [Anterior Bilateral Throughout] Blood Pressure 141/43 146/44 146/44 O2 Sat by Pulse 99 97 100 Oximetry Constitutional: no acute distress, alert Eyes: non-icteric ENT: oropharynx moist Neck: supple Effort: normal Ascultation: Bilateral: clear (anteriorly) Cardiovascular: regular rate and rhythm (no mrg) Gastrointestinal: normoactive bowel sounds, soft Integumentary: other (dry gangrene 1st toe on L) Extremities: no cyanosis, no edema Neurologic: normal mental status, non-focal exam, pupils equal and round Psychiatric: mood appropriate, affect normal CBC and BMP: 07/31/20 14:09 08/01/20 13:49 ABG, PT/INR, D-dimer: ABG ABG pH 7.316 pH Units (7.350-7.450) L 07/29/20 12:55 ABG pCO2 48.6 mm Hg 07/29/20 12:55 ABG pO2 131.0 mm Hg (80.0-90.0) H 07/29/20 12:55 ABG O2 Saturation 98.3 % (95.0-99.0) 07/29/20 12:55 PT/INR, D-dimer PT 13.5 Sec. (12.2-14.9) 07/24/20 08:40 INR 1.04 (0.87-1.13) 07/24/20 08:40 Abnormal lab findings: Abnormal Labs 07/24/20 07/24/20 07/24/20 08:40 08:40 08:40 WBC 11.3 H RBC 3.40 L Hgb 11.0 L Hct 33.0 L MCV 97 H RDW 15.6 H Lymph % (Auto) [place] % (Auto) Lymph # (Auto) Seg Neutrophils % Seg Neutrophils # APTT 45.0 H ABG pH ABG pO2 ABG Hemoglobin Potassium BUN 38 H Creatinine 4.7 H Glucose POC Glucose Calcium Prealbumin Vitamin B12 07/24/20 07/24/20 07/24/20 15:41 15:57 20:52 WBC RBC Hgb Hct MCV RDW Lymph % (Auto) [place] % (Auto) Lymph # (Auto) Seg Neutrophils % Seg Neutrophils # APTT ABG pH ABG pO2 ABG Hemoglobin Potassium BUN Creatinine Glucose POC Glucose 18 L 128 H 108 H Calcium Prealbumin Vitamin B12 07/25/20 07/25/20 07/25/20 05:42 05:42 07:43 WBC 11.4 H RBC 3.02 L Hgb 9.5 L Hct 29.8 L MCV 99 H RDW 15.9 H Lymph % (Auto) 9.0 L [place] % (Auto) Lymph # (Auto) 1.0 L Seg Neutrophils % 82.6 H Seg Neutrophils # 9.4 H APTT ABG pH ABG pO2 ABG Hemoglobin Potassium 5.1 H BUN 53 H Creatinine 6.1 H Glucose 122 H POC Glucose 108 H Calcium Prealbumin Vitamin B12 07/25/20 07/25/20 07/26/20 11:18 21:17 11:35 WBC RBC Hgb Hct MCV RDW Lymph % (Auto) [place] % (Auto) Lymph # (Auto) Seg Neutrophils % Seg Neutrophils # APTT ABG pH ABG pO2 ABG Hemoglobin Potassium BUN Creatinine Glucose POC Glucose 133 H 68 L 45 L Calcium Prealbumin Vitamin B12 07/26/20 07/26/20 07/26/20 12:27 12:51 16:27 WBC RBC Hgb Hct MCV RDW Lymph % (Auto) [place] % (Auto) Lymph # (Auto) Seg Neutrophils % Seg Neutrophils # APTT ABG pH ABG pO2 ABG Hemoglobin Potassium BUN Creatinine Glucose POC Glucose 65 L 124 H 52 L Calcium Prealbumin Vitamin B12 07/26/20 07/27/20 07/27/20 18:13 05:21 05:21 WBC 11.5 H RBC 3.16 L Hgb 10.0 L Hct 29.8 L MCV 95 H RDW Lymph % (Auto) [place] % (Auto) Lymph # (Auto) Seg Neutrophils % Seg Neutrophils # APTT ABG pH ABG pO2 ABG Hemoglobin Potassium BUN 45 H Creatinine 5.6 H Glucose POC Glucose 147 H Calcium Prealbumin Vitamin B12 07/27/20 07/27/20 07/27/20 07:37 09:10 16:25 WBC RBC Hgb Hct MCV RDW Lymph % (Auto) [place] % (Auto) Lymph # (Auto) Seg Neutrophils % Seg Neutrophils # APTT ABG pH ABG pO2 ABG Hemoglobin Potassium BUN Creatinine Glucose POC Glucose 41 L 129 H Calcium Prealbumin 0.116 L Vitamin B12 07/27/20 07/27/20 07/28/20 16:25 21:16 11:41 WBC RBC Hgb Hct MCV RDW Lymph % (Auto) [place] % (Auto) Lymph # (Auto) Seg Neutrophils % Seg Neutrophils # APTT ABG pH ABG pO2 ABG Hemoglobin Potassium BUN Creatinine Glucose POC Glucose 123 H 117 H Calcium Prealbumin Vitamin B12 980.0 H 07/28/20 07/28/20 07/29/20 15:47 22:07 07:42 WBC RBC Hgb Hct MCV RDW Lymph % (Auto) [place] % (Auto) Lymph # (Auto) Seg Neutrophils % Seg Neutrophils # APTT ABG pH ABG pO2 ABG Hemoglobin Potassium BUN Creatinine Glucose POC Glucose 148 H 119 H 106 H Calcium Prealbumin Vitamin B12 07/29/20 07/29/20 07/29/20 11:08 12:55 22:46 WBC RBC Hgb Hct MCV RDW Lymph % (Auto) [place] % (Auto) Lymph # (Auto) Seg Neutrophils % Seg Neutrophils # APTT ABG pH 7.316 L ABG pO2 131.0 H ABG Hemoglobin 9.4 L Potassium BUN Creatinine Glucose POC Glucose 117 H 125 H Calcium Prealbumin Vitamin B12 07/30/20 07/30/20 07/30/20 04:17 04:17 07:50 WBC RBC 2.95 L Hgb 9.4 L Hct 28.4 L MCV 96 H RDW Lymph % (Auto) [place] % (Auto) Lymph # (Auto) Seg Neutrophils % Seg Neutrophils # APTT ABG pH ABG pO2 ABG Hemoglobin Potassium BUN 46 H Creatinine 5.8 H Glucose POC Glucose 47 L Calcium 8.3 L Prealbumin Vitamin B12 07/30/20 07/30/20 07/31/20 16:33 21:25 07:26 WBC RBC Hgb Hct MCV RDW Lymph % (Auto) [place] % (Auto) Lymph # (Auto) Seg Neutrophils % Seg Neutrophils # APTT ABG pH ABG pO2 ABG Hemoglobin Potassium 5.4 H BUN 50 H Creatinine 5.8 H Glucose 112 H POC Glucose 123 H 59 L Calcium 8.1 L Prealbumin Vitamin B12 07/31/20 07/31/20 07/31/20 09:03 10:47 14:09 WBC RBC 2.73 L Hgb 8.7 L Hct 26.6 L MCV 97 H RDW 15.3 H Lymph % (Auto) [place] % (Auto) 8.7 H Lymph # (Auto) Seg Neutrophils % 74.7 H Seg Neutrophils # APTT ABG pH ABG pO2 ABG Hemoglobin Potassium BUN 29 H Creatinine 4.3 H Glucose 106 H POC Glucose 48 L Calcium 8.0 L Prealbumin Vitamin B12 07/31/20 07/31/20 08/01/20 16:01 20:04 10:42 WBC RBC Hgb Hct MCV RDW Lymph % (Auto) [place] % (Auto) Lymph # (Auto) Seg Neutrophils % Seg Neutrophils # APTT ABG pH ABG pO2 ABG Hemoglobin Potassium BUN Creatinine Glucose POC Glucose 69 L 111 H 109 H Calcium Prealbumin Vitamin B12
--- NOTE | 2020-08-01 12:55 | Progress Note ---
Assessment and Plan Cultures: 07/24/2020 blood culture: No growth A/P: 80-year-old male with ESRD on HD, diabetes, hypertension, prior CVA, vascular dementia: #Left foot cellulitis with gangrenous changes involving 1st and 2nd toes: Vascular following. Continue empiric antibiotics for now. Underwent re-vasc on 07/30/2020. #Acute encephalopathy: Neurology on board. MRI brain with advanced volume loss, no acute findings. #ESRD on HD: Renally dose antibiotics. Recs: -Continue renally dosed Zosyn, Vancomycin, D8 today Arben Payne MD, FACP [facility] ([facility]) O: [phone] F: [phone] Subjective Date of service: 08/01/20 Principal diagnosis: Peripheral vascular disease with gangrene Interval history: No fever today. More awake and alert. Objective - Exam Narrative Exam: Physical Exam: Constitutional: sleeping, easily awakened Head, Ears, Nose: Normocephalic, atraumatic. External ears, nose normal Eyes: Conjunctivae/corneas clear. No icterus. No ptosis. Neck: Supple, no meningeal signs Cardiovascular: S1, S2 normal. Respiratory: Good air entry, clear to auscultation bilaterally GI: Soft, non-tender; bowel sounds normal. No peritoneal signs Musculoskeletal: Left great toe and second toe with gangrenous change Skin: Scabs on bilateral feet. Hem/Lymphatic: No palpable cervical or supraclavicular nodes. No lymphangitis Psych: no agitation Neurological: sleeping, easily awakened, answering basic questions. - Constitutional Vitals: Vital Signs Temp Pulse Resp BP Pulse Ox 97.8 F 65 14 146/44 100 08/01/20 12:00 08/01/20 11:40 08/01/20 11:40 08/01/20 11:40 08/01/20 11:40 Temperature -Last 24 Hours Temperature 97.8 F Temperature 97.9 F Temperature 98.9 F Temperature 98.3 F Temperature 99.2 F Temperature 99.9 F Temperature 99.7 F - Labs CBC & Chem 7: 07/31/20 14:09 07/31/20 09:03 Labs: Abnormal lab results 07/31/20 07/31/20 07/31/20 Range/Units 10:47 14:09 16:01 RBC 2.73 L (3.65-5.03) M/mm3 Hgb 8.7 L (11.8-15.2) gm/dl Hct 26.6 L (35.5-45.6) % MCV 97 H (84-94) fl RDW 15.3 H (13.2-15.2) % [place] % (Auto) 8.7 H (0.0-7.3) % Seg Neutrophils % 74.7 H (40.0-70.0) % POC Glucose 48 L 69 L (70-105) mg/dL 07/31/20 08/01/20 Range/Units 20:04 10:42 RBC (3.65-5.03) M/mm3 Hgb (11.8-15.2) gm/dl Hct (35.5-45.6) % MCV (84-94) fl RDW (13.2-15.2) % [place] % (Auto) (0.0-7.3) % Seg Neutrophils % (40.0-70.0) % POC Glucose 111 H 109 H (70-105) mg/dL
[2020-08-01 14:57] LABS: Calcium 8.2 mg/dL (8.4-10.2)
--- NOTE | 2020-08-01 15:24 | Progress Note ---
Assessment and Plan Assessment and plan #End-stage renal disease: Plan for HD today. Continue MWF Patient dialysis access is a central venous catheter. #Restart antihypertensives #Continue epogen weekly #Keep MAP>65 #Diet and nutrition: Patient needs to be on high protein diet, #Volume and electrolyte Stable at this time #Bone mineral disorder: Monitor phosphorus and PTH level periodically, outpatient labs satisfactory #Multiple other complex comorbidities currently being managed by primary team #peripheral arterial disease/gangrene, vascular note reviewed #Acute encephalopathy, pain medications discontinued. CT head negative for stroke. Management per primary. Will continue to follow and make recommendation for renal standpoint Subjective Date of service: 08/01/20 Principal diagnosis: Peripheral vascular disease with gangrene Interval history: Remains lethargic Patient was seen for his renal issues Nursing, interdisciplinary and consult notes were reviewed Vitals, input and output, medications and labs were reviewed Objective - Exam Narrative Exam: General: No acute distress HEENT: Oral mucosa moist Neck: Supple, no JVD Chest: Clear to auscultation bilaterally Heart: RRR, S1 and S2, no pericardial rub Abdomen: Soft, nontender, no renal bruit Extremity: No peripheral cyanosis, edema. LE dressing noted. Neurological: Somnolent Dermatology: No skin rash Psych: Unable to assess Musculoskeletal: No joint effusion - Vital Signs Vital signs: Vital Signs - 12hr 08/01/20 08/01/20 08/01/20 03:30 03:40 03:50 Temperature Pulse Rate 67 66 68 Pulse Rate [ Anterior Bilateral Throughout] Pulse Rate [ From Monitor] Respiratory 13 13 12 Rate Respiratory Rate [Anterior Bilateral Throughout] Blood Pressure 131/50 81/39 129/49 O2 Sat by Pulse 93 99 82 L Oximetry 08/01/20 08/01/20 08/01/20 04:00 04:10 04:20 Temperature 98.3 F Pulse Rate 65 66 65 Pulse Rate [ Anterior Bilateral Throughout] Pulse Rate [ 78 From Monitor] Respiratory 16 14 12 Rate Respiratory Rate [Anterior Bilateral Throughout] Blood Pressure 140/56 140/56 140/56 O2 Sat by Pulse 100 100 100 Oximetry 08/01/20 08/01/20 08/01/20 04:30 04:40 04:50 Temperature Pulse Rate 67 69 68 Pulse Rate [ Anterior Bilateral Throughout] Pulse Rate [ From Monitor] Respiratory 12 14 12 Rate Respiratory Rate [Anterior Bilateral Throughout] Blood Pressure 157/45 157/45 157/45 O2 Sat by Pulse 100 100 100 Oximetry 08/01/20 08/01/20 08/01/20 05:00 05:10 05:20 Temperature Pulse Rate 68 66 66 Pulse Rate [ Anterior Bilateral Throughout] Pulse Rate [ From Monitor] Respiratory 11 L 12 15 Rate Respiratory Rate [Anterior Bilateral Throughout] Blood Pressure 125/55 125/55 125/55 O2 Sat by Pulse 100 100 100 Oximetry 08/01/20 08/01/20 08/01/20 05:30 05:40 05:50 Temperature Pulse Rate 67 67 68 Pulse Rate [ Anterior Bilateral Throughout] Pulse Rate [ From Monitor] Respiratory 11 L 11 L 18 Rate Respiratory Rate [Anterior Bilateral Throughout] Blood Pressure 81/48 81/48 145/42 O2 Sat by Pulse 100 100 100 Oximetry 08/01/20 08/01/20 08/01/20 06:00 06:10 06:20 Temperature Pulse Rate 67 66 63 Pulse Rate [ Anterior Bilateral Throughout] Pulse Rate [ From Monitor] Respiratory 17 11 L 18 Rate Respiratory Rate [Anterior Bilateral Throughout] Blood Pressure 138/39 138/39 138/39 O2 Sat by Pulse 100 100 100 Oximetry 08/01/20 08/01/20 08/01/20 06:30 06:40 06:50 Temperature Pulse Rate 67 64 63 Pulse Rate [ Anterior Bilateral Throughout] Pulse Rate [ From Monitor] Respiratory 11 L 12 11 L Rate Respiratory Rate [Anterior Bilateral Throughout] Blood Pressure 136/40 136/40 136/40 O2 Sat by Pulse 100 100 100 Oximetry 08/01/20 08/01/20 08/01/20 07:00 07:10 07:20 Temperature Pulse Rate 65 64 64 Pulse Rate [ Anterior Bilateral Throughout] Pulse Rate [ From Monitor] Respiratory 12 13 14 Rate Respiratory Rate [Anterior Bilateral Throughout] Blood Pressure 151/40 151/40 151/40 O2 Sat by Pulse 100 100 100 Oximetry 08/01/20 08/01/20 08/01/20 07:30 07:40 07:50 Temperature Pulse Rate 65 66 64 Pulse Rate [ Anterior Bilateral Throughout] Pulse Rate [ From Monitor] Respiratory 12 15 12 Rate Respiratory Rate [Anterior Bilateral Throughout] Blood Pressure 151/40 121/48 121/48 O2 Sat by Pulse 100 97 96 Oximetry 08/01/20 08/01/20 08/01/20 08:00 08:10 08:16 Temperature 97.9 F Pulse Rate 65 61 Pulse Rate [ 60 Anterior Bilateral Throughout] Pulse Rate [ From Monitor] Respiratory 13 11 L Rate Respiratory 16 Rate [Anterior Bilateral Throughout] Blood Pressure 131/43 131/43 O2 Sat by Pulse 94 94 Oximetry 08/01/20 08/01/20 08/01/20 08:20 08:30 08:40 Temperature Pulse Rate 63 60 63 Pulse Rate [ Anterior Bilateral Throughout] Pulse Rate [ From Monitor] Respiratory 14 15 12 Rate Respiratory Rate [Anterior Bilateral Throughout] Blood Pressure 131/43 146/117 146/117 O2 Sat by Pulse 98 99 91 Oximetry 08/01/20 08/01/20 08/01/20 08:50 09:00 09:10 Temperature Pulse Rate 65 62 63 Pulse Rate [ Anterior Bilateral Throughout] Pulse Rate [ From Monitor] Respiratory 16 13 14 Rate Respiratory Rate [Anterior Bilateral Throughout] Blood Pressure 146/117 146/55 146/55 O2 Sat by Pulse 99 95 98 Oximetry 08/01/20 08/01/20 08/01/20 09:11 09:20 09:30 Temperature Pulse Rate 60 59 L Pulse Rate [ Anterior Bilateral Throughout] Pulse Rate [ From Monitor] Respiratory 12 13 Rate Respiratory Rate [Anterior Bilateral Throughout] Blood Pressure 146/55 147/53 O2 Sat by Pulse 99 97 93 Oximetry 08/01/20 08/01/20 08/01/20 09:40 09:50 10:00 Temperature Pulse Rate 63 65 66 Pulse Rate [ Anterior Bilateral Throughout] Pulse Rate [ From Monitor] Respiratory 18 14 13 Rate Respiratory Rate [Anterior Bilateral Throughout] Blood Pressure 147/53 147/53 147/53 O2 Sat by Pulse 99 94 94 Oximetry 08/01/20 08/01/20 08/01/20 10:10 10:20 10:30 Temperature Pulse Rate 64 61 65 Pulse Rate [ Anterior Bilateral Throughout] Pulse Rate [ From Monitor] Respiratory 13 12 13 Rate Respiratory Rate [Anterior Bilateral Throughout] Blood Pressure 140/48 140/48 139/45 O2 Sat by Pulse 99 98 97 Oximetry 08/01/20 08/01/20 08/01/20 10:40 10:50 11:00 Temperature Pulse Rate 65 64 65 Pulse Rate [ Anterior Bilateral Throughout] Pulse Rate [ From Monitor] Respiratory 13 14 13 Rate Respiratory Rate [Anterior Bilateral Throughout] Blood Pressure 139/45 139/45 141/43 O2 Sat by Pulse 98 99 97 Oximetry 03/03/1408/01/20 08/01/20 11:10 11:20 11:30 Temperature Pulse Rate 64 65 65 Pulse Rate [ Anterior Bilateral Throughout] Pulse Rate [ From Monitor] Respiratory 14 13 14 Rate Respiratory Rate [Anterior Bilateral Throughout] Blood Pressure 141/43 141/43 146/44 O2 Sat by Pulse 98 99 97 Oximetry 08/01/20 08/01/20 08/01/20 11:40 11:50 12:00 Temperature 97.8 F Pulse Rate 65 64 64 Pulse Rate [ Anterior Bilateral Throughout] Pulse Rate [ From Monitor] Respiratory 14 14 12 Rate Respiratory Rate [Anterior Bilateral Throughout] Blood Pressure 146/44 146/44 156/48 O2 Sat by Pulse 100 99 98 Oximetry 08/01/20 08/01/20 08/01/20 12:10 12:20 12:30 Temperature Pulse Rate 65 63 64 Pulse Rate [ Anterior Bilateral Throughout] Pulse Rate [ From Monitor] Respiratory 14 14 14 Rate Respiratory Rate [Anterior Bilateral Throughout] Blood Pressure 156/48 156/48 157/55 O2 Sat by Pulse 99 99 100 Oximetry 08/01/20 08/01/20 08/01/20 12:40 12:50 13:00 Temperature Pulse Rate 64 62 66 Pulse Rate [ Anterior Bilateral Throughout] Pulse Rate [ From Monitor] Respiratory 14 14 15 Rate Respiratory Rate [Anterior Bilateral Throughout] Blood Pressure 157/55 157/55 157/55 O2 Sat by Pulse 97 97 100 Oximetry 08/01/20 08/01/20 08/01/20 13:10 13:20 13:30 Temperature Pulse Rate 65 64 64 Pulse Rate [ Anterior Bilateral Throughout] Pulse Rate [ From Monitor] Respiratory 16 15 17 Rate Respiratory Rate [Anterior Bilateral Throughout] Blood Pressure 151/50 151/50 165/49 O2 Sat by Pulse 99 99 97 Oximetry 08/01/20 08/01/20 08/01/20 13:40 13:50 14:00 Temperature Pulse Rate 65 65 61 Pulse Rate [ Anterior Bilateral Throughout] Pulse Rate [ From Monitor] Respiratory 15 15 20 Rate Respiratory Rate [Anterior Bilateral Throughout] Blood Pressure 151/50 151/50 149/54 O2 Sat by Pulse 99 98 100 Oximetry 08/01/20 08/01/20 08/01/20 14:10 14:16 14:20 Temperature Pulse Rate 62 65 Pulse Rate [ 68 Anterior Bilateral Throughout] Pulse Rate [ From Monitor] Respiratory 15 17 Rate Respiratory 18 Rate [Anterior Bilateral Throughout] Blood Pressure 149/54 149/54 O2 Sat by Pulse 100 100 Oximetry - Lab 07/31/20 14:09 08/01/20 13:49 Most recent lab results ABG pH 7.316 pH Units (7.350-7.450) L 07/29/20 12:55 ABG pCO2 48.6 mm Hg 07/29/20 12:55 ABG pO2 131.0 mm Hg (80.0-90.0) H 07/29/20 12:55 ABG HCO3 24.3 mmol/L (20.0-26.0) 07/29/20 12:55 ABG O2 Saturation 98.3 % (95.0-99.0) 07/29/20 12:55 Calcium 8.2 mg/dL (8.4-10.2) L 08/01/20 13:49 Medications & Allergies - Medications Allergies/Adverse Reactions: Allergies No Known Allergies Allergy (Verified 05/01/15 08:52) Home Medications: Home Medications Medication Instructions Recorded Confirmed Last Taken Type Calcium Acetate [Phoslo] 667 mg PO TID 07/24/20 07/24/20 Unknown History Fenofibrate 160 mg PO QDAY 07/24/20 07/24/20 Unknown History Gabapentin [Neurontin] 100 mg PO Q8HR 07/24/20 07/24/20 Unknown History HYDROcodone/ACETAMINOPHEN 1 each PO Q8HR PRN 07/24/20 07/24/20 Unknown History [Hydrocodone-Acetamin 5-300 mg] Losartan Potassium 100 mg PO QDAY 07/24/20 07/24/20 Unknown History Montelukast [Singulair] 10 mg PO QPM 07/24/20 07/24/20 Unknown History Sevelamer Carbonate [Renvela] 800 mg PO TIDWM 07/24/20 07/24/20 Unknown History Simvastatin 40 mg PO QDAY 07/24/20 07/24/20 Unknown History allopurinoL [Zyloprim] 100 mg PO QDAY 07/24/20 07/24/20 Unknown History traZODone [Desyrel] 50 mg PO QHS 07/24/20 07/24/20 Unknown History traZODone [Desyrel] 50 mg PO QHS 07/24/20 07/24/20 Unknown History Active Medications: Generic Name Dose Route Start Last Admin Trade Name Freq PRN Reason Stop Dose Admin Acetaminophen 650 mg 07/24/20 12:34 Acetaminophen 325 Mg Tab PO Q4H PRN Pain MILD(1-3)/Fever >100.5/ANDRADE Acetaminophen 650 mg 07/31/20 13:52 07/31/20 16:11 Acetaminophen 650 Mg Rect Supp [place] 650 mg Q4H PRN Administration Fever >101 Albuterol 2.5 mg 07/24/20 12:30 Albuterol 2.5 Mg/3 Ml Nebu IH Q4HRT PRN Shortness Of Breath Albuterol/Ipratropium 1 ampul 07/29/20 11:00 08/01/20 14:16 Ipratropium/Albuterol Sulfate 3 Ml Ampul.Neb IH 1 ampul TIDRT PENDING SALE TO [facility] Administration Allopurinol 100 mg 07/25/20 10:00 07/31/20 12:13 Allopurinol 100 Mg Tab PO Not Given QDAY PENDING SALE TO [facility] Aspirin 81 mg 07/30/20 16:00 07/31/20 12:12 Aspirin Ec 81 Mg Tab PO Not Given QDAY PENDING SALE TO [facility] Calcium Acetate 667 mg 07/24/20 17:00 07/31/20 16:10 Calcium Acetate 667 Mg Cap PO Not Given TIDWM PENDING SALE TO [facility] Carvedilol 6.25 mg 07/24/20 22:00 07/31/20 21:06 Carvedilol 6.25 Mg Tab PO Not Given BID PENDING SALE TO [facility] Clopidogrel Bisulfate 75 mg 07/31/20 10:00 07/31/20 12:12 Clopidogrel 75 Mg Tab PO Not Given QDAY PENDING SALE TO [facility] Dextrose 50 ml 07/31/20 08:37 07/31/20 16:11 Dextrose 50% In Water (25gm) 50 Ml Syringe IV 50 ml Q30MIN PRN Administration Hypoglycemia Protocol Doxazosin Mesylate 4 mg 07/26/20 10:00 07/31/20 12:11 Doxazosin 4 Mg Tab PO Not Given DAILY PENDING SALE TO [facility] Epoetin Jose 20,000 unit 07/26/20 10:00 07/30/20 21:23 Epoetin Jose 20,000 Unit/1 Ml Inj SUB-Q 20,000 unit Th PENDING SALE TO [facility] Administration Fenofibrate 145 mg 07/25/20 10:00 07/31/20 12:13 Fenofibrate 145 Mg Tab PO Not Given DAILY PENDING SALE TO [facility] Ferrous Sulfate 325 mg 07/24/20 22:00 07/31/20 21:06 Ferrous Sulfate 325 Mg Tab PO Not Given BID PENDING SALE TO [facility] Fish Oil 1,000 mg 07/25/20 10:00 07/31/20 12:12 [place]-3 Fatty Acids/Fish Oil 1 Gram Cap PO Not Given DAILY PENDING SALE TO [facility] Hydralazine HCl 50 mg 07/28/20 22:00 07/31/20 21:06 Hydralazine 25 Mg Tab PO Not Given Q8HR PENDING SALE TO [facility] Hydralazine HCl 10 mg 07/28/20 16:22 07/28/20 19:01 Hydralazine 20 Mg/1 Ml Inj IV 10 mg Q6H PRN Administration Blood Pressure Piperacillin Sod/Tazobactam Sod 2.25 gm in 50 mls @ 100 mls/hr 07/25/20 11:00 08/01/20 03:45 Zosyn/Ns 2.25 Gm/50ml IV 100 mls/hr Q8H SADAF Administration Dextrose 1,000 mls @ 75 mls/hr 07/31/20 12:00 08/01/20 02:38 D10w IV 75 mls/hr DIRECT SADAF Administration Sodium Chloride 100 mls @ 999 mls/hr 08/01/20 09:55 Nacl 0.9% IV PETTY PRN Hypotension Losartan Potassium 100 mg 07/25/20 10:00 07/31/20 12:11 Losartan 50 Mg Tab PO Not Given QDAY PENDING SALE TO [facility] Montelukast Sodium 10 mg 07/24/20 18:00 07/31/20 18:51 Montelukast 10 Mg Tab PO Not Given QPM PENDING SALE TO [facility] Multivit/Ca Carb/B Cmplx/FA/Prenat 1 cap 07/26/20 10:00 07/31/20 12:12 Folic Acid/Vit B Comp W-C 1 Mg (Renal Caps) PO Not Given QDAY PENDING SALE TO [facility] Multivitamins/Minerals 1 each 07/25/20 10:00 07/31/20 12:12 Multivitamins,Ther W-Minerals Tab PO Not Given QDAY PENDING SALE TO [facility] Ondansetron HCl 4 mg 07/24/20 12:00 Ondansetron 4 Mg/2 Ml Inj IV Q8H PRN Nausea And Vomiting Pravastatin Sodium 80 mg 07/24/20 22:00 07/31/20 21:06 Pravastatin 80 Mg Tab PO Not Given QHS PENDING SALE TO [facility] Sevelamer Carbonate 800 mg 07/24/20 17:00 07/31/20 16:10 Sevelamer Carbonate 800 Mg Tab PO Not Given TIDWM SADAF Sodium Chloride 10 ml 07/24/20 12:30 07/31/20 21:07 Sodium Chloride 0.9% 10 Ml Flush Syringe IV 10 ml BID SADAF Administration Sodium Chloride 10 ml 07/24/20 12:30 07/24/20 12:39 Sodium Chloride 0.9% 10 Ml Flush Syringe IV 10 ml PRN PRN Administration LINE FLUSH Trazodone HCl 50 mg 07/24/20 22:00 07/31/20 21:06 Trazodone 50 Mg Tab PO Not Given QHS SADAF
[2020-08-01] MEDS: hydrALAZINE 25 MG TAB PO SCH (21:59)
[2020-08-01] MEDS: carvediloL 6.25 MG TAB PO SCH (21:59)
[2020-08-02] MEDS: PIPERACIL-TAZO 2.25 GM/50 ML 2.25 GM/50 ML BAG IV SCH ×3 (03:19→18:02)
[2020-08-02] MEDS: hydrALAZINE 20 MG/1 ML INJ IV PRN (08:46)
[2020-08-02] MEDS: IPRATROPIUM/ALBUTEROL SULFATE 3 ML AMPUL.NEB IH SCH ×3 (08:51→22:48)
--- NOTE | 2020-08-02 09:35 | Progress Note ---
Assessment and Plan Pulm status is stable. Will see PRN Subjective Date of service: 08/02/20 Principal diagnosis: Peripheral vascular disease with gangrene Interval history: Out of IMCU now and has been weaned to room air. Objective Vital Signs - 12hr 08/01/20 08/02/20 08/02/20 23:00 01:00 03:56 Temperature 98.1 F Pulse Rate 79 77 Pulse Rate [ Anterior Bilateral Throughout] Respiratory 18 Rate Respiratory Rate [Anterior Bilateral Throughout] Blood Pressure 195/41 O2 Sat by Pulse 93 98 Oximetry 08/02/20 08/02/20 08/02/20 04:17 08:46 08:48 Temperature 99.1 F Pulse Rate 78 78 Pulse Rate [ 74 Anterior Bilateral Throughout] Respiratory 16 Rate Respiratory 18 Rate [Anterior Bilateral Throughout] Blood Pressure 169/47 169/71 O2 Sat by Pulse 91 Oximetry 08/02/20 08:49 Temperature Pulse Rate Pulse Rate [ Anterior Bilateral Throughout] Respiratory Rate Respiratory Rate [Anterior Bilateral Throughout] Blood Pressure O2 Sat by Pulse 94 Oximetry Constitutional: no acute distress, alert Eyes: non-icteric ENT: oropharynx moist Neck: supple Effort: normal Ascultation: Bilateral: clear (anteriorly) Cardiovascular: regular rate and rhythm (no mrg) Gastrointestinal: normoactive bowel sounds, soft Integumentary: other (dry gangrene 1st toe on L) Extremities: no cyanosis, no edema Neurologic: normal mental status, non-focal exam, pupils equal and round Psychiatric: mood appropriate, affect normal CBC and BMP: 07/31/20 14:09 08/01/20 13:49 ABG, PT/INR, D-dimer: ABG ABG pH 7.316 pH Units (7.350-7.450) L 07/29/20 12:55 ABG pCO2 48.6 mm Hg 07/29/20 12:55 ABG pO2 131.0 mm Hg (80.0-90.0) H 07/29/20 12:55 ABG O2 Saturation 98.3 % (95.0-99.0) 07/29/20 12:55 PT/INR, D-dimer PT 13.5 Sec. (12.2-14.9) 07/24/20 08:40 INR 1.04 (0.87-1.13) 07/24/20 08:40 Abnormal lab findings: Abnormal Labs 07/24/20 07/24/20 07/24/20 08:40 08:40 08:40 WBC 11.3 H RBC 3.40 L Hgb 11.0 L Hct 33.0 L MCV 97 H RDW 15.6 H Lymph % (Auto) [place] % (Auto) Lymph # (Auto) Seg Neutrophils % Seg Neutrophils # APTT 45.0 H ABG pH ABG pO2 ABG Hemoglobin Sodium Potassium BUN 38 H Creatinine 4.7 H Glucose POC Glucose Calcium Prealbumin Vitamin B12 07/24/20 07/24/20 07/24/20 15:41 15:57 20:52 WBC RBC Hgb Hct MCV RDW Lymph % (Auto) [place] % (Auto) Lymph # (Auto) Seg Neutrophils % Seg Neutrophils # APTT ABG pH ABG pO2 ABG Hemoglobin Sodium Potassium BUN Creatinine Glucose POC Glucose 18 L 128 H 108 H Calcium Prealbumin Vitamin B12 07/25/20 07/25/20 07/25/20 05:42 05:42 07:43 WBC 11.4 H RBC 3.02 L Hgb 9.5 L Hct 29.8 L MCV 99 H RDW 15.9 H Lymph % (Auto) 9.0 L [place] % (Auto) Lymph # (Auto) 1.0 L Seg Neutrophils % 82.6 H Seg Neutrophils # 9.4 H APTT ABG pH ABG pO2 ABG Hemoglobin Sodium Potassium 5.1 H BUN 53 H Creatinine 6.1 H Glucose 122 H POC Glucose 108 H Calcium Prealbumin Vitamin B12 07/25/20 07/25/20 07/26/20 11:18 21:17 11:35 WBC RBC Hgb Hct MCV RDW Lymph % (Auto) [place] % (Auto) Lymph # (Auto) Seg Neutrophils % Seg Neutrophils # APTT ABG pH ABG pO2 ABG Hemoglobin Sodium Potassium BUN Creatinine Glucose POC Glucose 133 H 68 L 45 L Calcium Prealbumin Vitamin B12 07/26/20 07/26/20 07/26/20 12:27 12:51 16:27 WBC RBC Hgb Hct MCV RDW Lymph % (Auto) [place] % (Auto) Lymph # (Auto) Seg Neutrophils % Seg Neutrophils # APTT ABG pH ABG pO2 ABG Hemoglobin Sodium Potassium BUN Creatinine Glucose POC Glucose 65 L 124 H 52 L Calcium Prealbumin Vitamin B12 07/26/20 07/27/20 07/27/20 18:13 05:21 05:21 WBC 11.5 H RBC 3.16 L Hgb 10.0 L Hct 29.8 L MCV 95 H RDW Lymph % (Auto) [place] % (Auto) Lymph # (Auto) Seg Neutrophils % Seg Neutrophils # APTT ABG pH ABG pO2 ABG Hemoglobin Sodium Potassium BUN 45 H Creatinine 5.6 H Glucose POC Glucose 147 H Calcium Prealbumin Vitamin B12 07/27/20 07/27/20 07/27/20 07:37 09:10 16:25 WBC RBC Hgb Hct MCV RDW Lymph % (Auto) [place] % (Auto) Lymph # (Auto) Seg Neutrophils % Seg Neutrophils # APTT ABG pH ABG pO2 ABG Hemoglobin Sodium Potassium BUN Creatinine Glucose POC Glucose 41 L 129 H Calcium Prealbumin 0.116 L Vitamin B12 07/27/20 07/27/20 07/28/20 16:25 21:16 11:41 WBC RBC Hgb Hct MCV RDW Lymph % (Auto) [place] % (Auto) Lymph # (Auto) Seg Neutrophils % Seg Neutrophils # APTT ABG pH ABG pO2 ABG Hemoglobin Sodium Potassium BUN Creatinine Glucose POC Glucose 123 H 117 H Calcium Prealbumin Vitamin B12 980.0 H 07/28/20 07/28/20 07/29/20 15:47 22:07 07:42 WBC RBC Hgb Hct MCV RDW Lymph % (Auto) [place] % (Auto) Lymph # (Auto) Seg Neutrophils % Seg Neutrophils # APTT ABG pH ABG pO2 ABG Hemoglobin Sodium Potassium BUN Creatinine Glucose POC Glucose 148 H 119 H 106 H Calcium Prealbumin Vitamin B12 07/29/20 07/29/20 07/29/20 11:08 12:55 22:46 WBC RBC Hgb Hct MCV RDW Lymph % (Auto) [place] % (Auto) Lymph # (Auto) Seg Neutrophils % Seg Neutrophils # APTT ABG pH 7.316 L ABG pO2 131.0 H ABG Hemoglobin 9.4 L Sodium Potassium BUN Creatinine Glucose POC Glucose 117 H 125 H Calcium Prealbumin Vitamin B12 07/30/20 07/30/20 07/30/20 04:17 04:17 07:50 WBC RBC 2.95 L Hgb 9.4 L Hct 28.4 L MCV 96 H RDW Lymph % (Auto) [place] % (Auto) Lymph # (Auto) Seg Neutrophils % Seg Neutrophils # APTT ABG pH ABG pO2 ABG Hemoglobin Sodium Potassium BUN 46 H Creatinine 5.8 H Glucose POC Glucose 47 L Calcium 8.3 L Prealbumin Vitamin B12 07/30/20 07/30/20 07/31/20 16:33 21:25 07:26 WBC RBC Hgb Hct MCV RDW Lymph % (Auto) [place] % (Auto) Lymph # (Auto) Seg Neutrophils % Seg Neutrophils # APTT ABG pH ABG pO2 ABG Hemoglobin Sodium Potassium 5.4 H BUN 50 H Creatinine 5.8 H Glucose 112 H POC Glucose 123 H 59 L Calcium 8.1 L Prealbumin Vitamin B12 07/31/20 07/31/20 07/31/20 09:03 10:47 14:09 WBC RBC 2.73 L Hgb 8.7 L Hct 26.6 L MCV 97 H RDW 15.3 H Lymph % (Auto) [place] % (Auto) 8.7 H Lymph # (Auto) Seg Neutrophils % 74.7 H Seg Neutrophils # APTT ABG pH ABG pO2 ABG Hemoglobin Sodium Potassium BUN 29 H Creatinine 4.3 H Glucose 106 H POC Glucose 48 L Calcium 8.0 L Prealbumin Vitamin B12 07/31/20 07/31/20 08/01/20 16:01 20:04 10:42 WBC RBC Hgb Hct MCV RDW Lymph % (Auto) [place] % (Auto) Lymph # (Auto) Seg Neutrophils % Seg Neutrophils # APTT ABG pH ABG pO2 ABG Hemoglobin Sodium Potassium BUN Creatinine Glucose POC Glucose 69 L 111 H 109 H Calcium Prealbumin Vitamin B12 08/01/20 08/02/20 13:49 08:45 WBC RBC Hgb Hct MCV RDW Lymph % (Auto) [place] % (Auto) Lymph # (Auto) Seg Neutrophils % Seg Neutrophils # APTT ABG pH ABG pO2 ABG Hemoglobin Sodium 134 L Potassium BUN 38 H Creatinine 5.7 H Glucose 105 H POC Glucose 69 L Calcium 8.2 L Prealbumin Vitamin B12
[2020-08-02] MEDS: FERROUS SULFATE 325 MG TAB PO SCH ×2 (11:37→11:49)
[2020-08-02] MEDS: OMEGA-3 FATTY ACIDS/FISH OIL 1 GRAM CAP PO SCH ×2 (11:37→11:53)
[2020-08-02] MEDS: CALCIUM ACETATE 667 MG CAP PO SCH ×5 (11:37→17:24)
[2020-08-02] MEDS: carvediloL 6.25 MG TAB PO SCH ×3 (11:38→21:55)
[2020-08-02] MEDS: ASPIRIN EC 81 MG TAB PO SCH ×2 (11:38→11:53)
[2020-08-02] MEDS: FENOFIBRATE 145 MG TAB PO SCH ×2 (11:38→12:24)
[2020-08-02] MEDS: allopurinoL 100 MG TAB PO SCH ×2 (11:38→11:54)
[2020-08-02] MEDS: SEVELAMER CARBONATE 800 MG TAB PO SCH ×4 (11:38→17:23)
[2020-08-02] MEDS: CLOPIDOGREL 75 MG TAB PO SCH ×2 (11:38→11:49)
[2020-08-02] MEDS: hydrALAZINE 25 MG TAB PO SCH ×3 (11:39→22:00)
[2020-08-02] MEDS: DOXAZOSIN 4 MG TAB PO SCH ×2 (11:39→11:51)
[2020-08-02] MEDS: FOLIC ACID/VIT B COMP W-C 1 MG (RENAL CAPS) PO SCH ×2 (11:39→11:41)
[2020-08-02] MEDS: LOSARTAN 50 MG TAB PO SCH (11:40)
[2020-08-02] MEDS: MULTIVITAMINS,THER W-MINERALS TAB PO SCH ×2 (11:40→11:49)
[2020-08-02] MEDS: EPOETIN ALFA 20,000 UNIT/1 ML INJ SUB-Q SCH (12:24)
--- NOTE | 2020-08-02 12:26 | Progress Note ---
Assessment and Plan Assessment and plan: # Sepsis Secondary to lower extremity cellulitis Complete antibiotics [Zosyn and vancomycin] as ordered ID recommendations appreciated #Peripheral vascular disease with gangrene of the left first and second toe Now status post angiography with angioplasty of the distal femoral vessels Continue aspirin and Plavix Vascular surgery following #Acute metabolic encephalopathy Resolved CT head negative Stopped all pain medications and gabapentin #Hypertension, hyperlipidemia/hypertriglyceridemia Continue hydralazine 50 mg every 8 Continue losartan Continue Coreg Fenofibrate, statins #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 #DVT prophylaxis SCD to bilateral lower extremities while in bed, prophylactic anticoagulation. History Interval history: 80 YO Male with ESRD on HD (M, W, F), HTN, DM, Vascular Dementia, Cerebral Atherosclerosis presents to ED for evaluation. Patient is confused and unable to provide detailed history at time of exam. Patient caregiver is at bedside during exam and interview and provides history. As per the patient's the patient has experienced increased weakness and confusion over the past 1 month with increased bedbound status. Patient was seen and evaluated by his vascular surgeon today and was found to have left foot cellulitis. Patient was instructed to seek further care at [facility]. Patient transported to [facility] via private vehicle for further care and evaluation of the aforementioned symptoms. The patient was seen and evaluated in the emergency department. All lab and imaging studies reviewed. Patient found to have end-stage renal disease, left foot cellulitis complicated by systemic inflammatory response syndrome, as well as peripheral vascular disease. Patient admitted to medical floor and initiated on IV antibiotic therapy. Nephrology team consulted in ED. Vascular surgery team consulted in ED. No further history is obtainable. No reports of fever, chills, chest pain, palpitation, productive cough, skin rash, syncope, trauma, recent ill contacts, or known exposure to COVID-19. Patient is unable to provide history but has a positive gag reflex and is able to protect his airway without difficulty at the time my evaluation. Prior admission on 07/05/2019 reviewed. All medication listed at time of admission has been reconciled. Advanced care planning conducted in ED. CT: Head: Negative for acute pathology. 07/25: Discussed with the IR, patient with new onset Altered mental status from the last time they saw the patient. Will begin work-up for possible underlying sepsis etiology or source unknown at this time. Will obtain ID consulted and Neurology. Continue abx, attempted to reach family. Concern for stroke is low but considering hx of vasculopathy will obtain Neurology Will also obtain wound consultation. 07/26: Some improvement noted with initiation of antibiotics. We will continue current management patient continues on hemodialysis. Will await further vascular improvement as patient is beginning to show some improvement. Discussed with case management. Apparently the person that came with the patient is not the patient's but a caregiver H&P portion of this note has been corrected. Continue wound care and every 2 hours turns. 07/27: Continue current management plan. Vascular to re-evaluate. Continue abx. MRI with no acute pathology. Agree with the D5 as patient still has some intermittent confusion. Continue to monitor. Speech evaluation for swallow management. 07/28: Patient clinically stable, continue supportive care, abx, awaiting full vascular input. cONTINUE D5 for now. 07/29: We will give patient dose of Lasix, get a chest x-ray. Discussed with [facility] staff could be that the patient was appear hypoxic due to cold extremities. Will obtain an ABG. We will also obtain a pulmonary consult for clearance for anticipated vascular procedure in a.m. 07/30: Noted hypoglycemia this morning we will give D50 and amp. Patient is for procedure today. Discussed with vascular. Per discussion with nursing saturation has improved. Pulmonary input is noted. He was admitted for digital gangrene on multiple digits both fingers and toes. Was also noted to be septic requiring treatment which has led to improvement in his mental status. 07/31. Now status post angiography and angioplasty of distal femoral arteries. Now on antiplatelets. He has been having episodes of hypoglycemia. Started him on D10 water. Continue to monitor closely for now. CT head ordered to rule out any CVA though not likely. Vascular surgery following. 08/01. Patient remains lethargic. Discontinued pain medications and gabapentin. On IV antibiotics. Started on D10 water yesterday for hypoglycemia. If lethargy does not improve, will place an NG tube. CT head negative for any stroke. 08/02. More responsive today. Still gets agitated and pullinig on his IV lines so was placed on restraints. Needs to have a repeat swallow evaluation. Blood glucose is table. Hospitalist Physical - Physical exam Narrative exam: VITAL SIGNS: Reviewed. GENERAL: Awake HEAD: No signs of head trauma. EYES: Pupils are equal. Extraocular motions intact. MOUTH: Oropharynx is normal. NECK: No adenopathy, no JVD. CHEST: Chest with diminished breath sounds bilaterally. No wheezes, rales, or rhonchi. CARDIAC: normal S1 and S2, without murmurs, gallops, or rubs. ABDOMEN: Soft, non tender and non distended. No rebound or guarding, and no masses palpated. Bowel Sounds normal. MUSCULOSKELETAL: LLE: Gangrenous looking big toe, proximal area of the leg feels warm to touch. NEUROLOGIC EXAM: Awake and alert today SKIN: No obvious lesions - Constitutional Vitals: Temp Pulse Resp BP Pulse Ox 97.5 F L 78 18 100/76 94 08/02/20 08:42 08/02/20 11:52 08/02/20 08:48 08/02/20 11:52 08/02/20 08:49 Results - Labs CBC & Chem 7: 07/31/20 14:09 08/01/20 13:49 Labs: Laboratory Last Values WBC 9.6 K/mm3 (4.5-11.0) 07/31/20 14:09 RBC 2.73 M/mm3 (3.65-5.03) L 07/31/20 14:09 Hgb 8.7 gm/dl (11.8-15.2) L 07/31/20 14:09 Hct 26.6 % (35.5-45.6) L 07/31/20 14:09 MCV 97 fl (84-94) H 07/31/20 14:09 MCH 32 pg (28-32) 07/31/20 14:09 MCHC 33 % (32-34) 07/31/20 14:09 RDW 15.3 % (13.2-15.2) H 07/31/20 14:09 Plt Count 200 K/mm3 (140-440) 07/31/20 14:09 Lymph % (Auto) 14.2 % (13.4-35.0) 07/31/20 14:09 Mayes % (Auto) 8.7 % (0.0-7.3) H 07/31/20 14:09 Eos % (Auto) 0.9 % (0.0-4.3) 07/31/20 14:09 Baso % (Auto) 1.5 % (0.0-1.8) 07/31/20 14:09 Lymph # (Auto) 1.4 K/mm3 (1.2-5.4) 07/31/20 14:09 Mayes # (Auto) 0.8 K/mm3 (0.0-0.8) 07/31/20 14:09 Eos # (Auto) 0.1 K/mm3 (0.0-0.4) 07/31/20 14:09 Baso # (Auto) 0.1 K/mm3 (0.0-0.1) 07/31/20 14:09 Seg Neutrophils % 74.7 % (40.0-70.0) H 07/31/20 14:09 Seg Neutrophils # 7.2 K/mm3 (1.8-7.7) 07/31/20 14:09 PT 13.5 Sec. (12.2-14.9) 07/24/20 08:40 INR 1.04 (0.87-1.13) 07/24/20 08:40 APTT 45.0 Sec. (24.2-36.6) H 07/24/20 08:40 ABG pH 7.316 pH Units (7.350-7.450) L 07/29/20 12:55 ABG pCO2 48.6 mm Hg 07/29/20 12:55 ABG pO2 131.0 mm Hg (80.0-90.0) H 07/29/20 12:55 ABG HCO3 24.3 mmol/L (20.0-26.0) 07/29/20 12:55 ABG O2 Saturation 98.3 % (95.0-99.0) 07/29/20 12:55 ABG O2 Content 13.1 (0.0-44) 07/29/20 12:55 ABG Base Excess -2.0 mmol/L (-2.0-3.0) 07/29/20 12:55 ABG Hemoglobin 9.4 gm/dl (14.0-18.0) L 07/29/20 12:55 ABG Carboxyhemoglobin 1.1 % (0.0-5.0) 07/29/20 12:55 ABG Methemoglobin 0.6 % (0.0-1.5) 07/29/20 12:55 Oxyhemoglobin 96.7 % (95.0-99.0) 07/29/20 12:55 FiO2 32 % 07/29/20 12:55 Sodium 134 mmol/L (137-145) L 08/01/20 13:49 Potassium 4.5 mmol/L (3.6-5.0) 08/01/20 13:49 Chloride 98.8 mmol/L (98-107) 08/01/20 13:49 Carbon Dioxide 25 mmol/L (22-30) 08/01/20 13:49 Anion Gap 15 mmol/L 08/01/20 13:49 BUN 38 mg/dL (9-20) H 08/01/20 13:49 Creatinine 5.7 mg/dL (0.8-1.3) H 08/01/20 13:49 Estimated GFR 10 ml/min 08/01/20 13:49 BUN/Creatinine Ratio 7 % 08/01/20 13:49 Glucose 105 mg/dL (75-100) H 08/01/20 13:49 POC Glucose 69 mg/dL (70-105) L 08/02/20 08:45 Lactic Acid 0.90 mmol/L (0.7-2.0) 07/24/20 10:20 Calcium 8.2 mg/dL (8.4-10.2) L 08/01/20 13:49 Ionized Calcium 5.1 mg/dL (4.8-5.6) 07/30/20 09:03 Prealbumin 0.116 g/L (0.200-0.400) L 07/27/20 16:25 Vitamin B1 17 nmol/L (8-30) 07/27/20 16:25 Vitamin B12 980.0 pg/mL (211-911) H 07/27/20 16:25 Folate 12.73 ng/mL (7.3-26.0) 07/27/20 16:25 Nasal Screen MRSA (PCR) Negative (Negative) 07/24/20 Unknown Random Vancomycin 20.7 ug/mL (0-40.0) 08/01/20 05:16 Copper 113 mcg/dL (70-175) 07/27/20 16:25 Hepatitis A IgM Ab Non-reactive (NonReactive) 07/25/20 15:30 Hep Bs Antigen Non-reactive (Negative) 07/25/20 15:30 Hep B Core IgM Ab Non-reactive (NonReactive) 07/25/20 15:30 Hepatitis C Antibody Non-reactive (NonReactive) 07/25/20 15:30 Jaimes/IV: Voiding Method Diaper Active Medications - Current Medications Current Medications: Generic Name Dose Route Start Last Admin Trade Name Freq PRN Reason Stop Dose Admin Acetaminophen 650 mg 07/24/20 12:34 Acetaminophen 325 Mg Tab PO Q4H PRN Pain MILD(1-3)/Fever >100.5/ANDRADE Acetaminophen 650 mg 07/31/20 13:52 07/31/20 16:11 Acetaminophen 650 Mg Rect Supp [place] 650 mg Q4H PRN Administration Fever >101 Albuterol 2.5 mg 07/24/20 12:30 Albuterol 2.5 Mg/3 Ml Nebu IH Q4HRT PRN Shortness Of Breath Albuterol/Ipratropium 1 ampul 07/29/20 11:00 08/02/20 08:51 Ipratropium/Albuterol Sulfate 3 Ml Ampul.Neb IH 1 ampul TIDRT SADAF Administration Allopurinol 100 mg 07/25/20 10:00 08/02/20 11:54 Allopurinol 100 Mg Tab PO 100 mg QDAY SADAF Administration Aspirin 81 mg 07/30/20 16:00 08/02/20 11:53 Aspirin Ec 81 Mg Tab PO 81 mg QDAY SADAF Administration Calcium Acetate 667 mg 07/24/20 17:00 08/02/20 11:50 Calcium Acetate 667 Mg Cap PO 667 mg TIDWM SADAF Administration Carvedilol 6.25 mg 07/24/20 22:00 08/02/20 11:52 Carvedilol 6.25 Mg Tab PO 6.25 mg BID SADAF Administration Clopidogrel Bisulfate 75 mg 07/31/20 10:00 08/02/20 11:49 Clopidogrel 75 Mg Tab PO 75 mg QDAY SADAF Administration Dextrose 50 ml 07/31/20 08:37 07/31/20 16:11 Dextrose 50% In Water (25gm) 50 Ml Syringe IV 50 ml Q30MIN PRN Administration Hypoglycemia Protocol Doxazosin Mesylate 4 mg 07/26/20 10:00 08/02/20 11:51 Doxazosin 4 Mg Tab PO Not Given DAILY SADAF Epoetin Jose 20,000 unit 07/26/20 10:00 07/30/20 21:23 Epoetin Jose 20,000 Unit/1 Ml Inj SUB-Q 20,000 unit Th SADAF Administration Fenofibrate 145 mg 07/25/20 10:00 08/02/20 11:38 Fenofibrate 145 Mg Tab PO 145 mg DAILY SADAF Administration Ferrous Sulfate 325 mg 07/24/20 22:00 08/02/20 11:49 Ferrous Sulfate 325 Mg Tab PO 325 mg BID SADAF Administration Fish Oil 1,000 mg 07/25/20 10:00 08/02/20 11:53 [place]-3 Fatty Acids/Fish Oil 1 Gram Cap PO 1,000 mg DAILY SADAF Administration Hydralazine HCl 50 mg 07/28/20 22:00 08/02/20 11:39 Hydralazine 25 Mg Tab PO Not Given Q8HR SADAF Hydralazine HCl 10 mg 07/28/20 16:22 08/02/20 08:46 Hydralazine 20 Mg/1 Ml Inj IV 10 mg Q6H PRN Administration Blood Pressure Piperacillin Sod/Tazobactam Sod 2.25 gm in 50 mls @ 100 mls/hr 07/25/20 11:00 08/02/20 11:37 Zosyn/Ns 2.25 Gm/50ml IV 100 mls/hr Q8H SADAF Administration Dextrose 1,000 mls @ 75 mls/hr 07/31/20 12:00 08/01/20 21:57 D10w IV 75 mls/hr DIRECT SADAF Administration Sodium Chloride 100 mls @ 999 mls/hr 08/01/20 09:55 Nacl 0.9% IV PETTY PRN Hypotension Losartan Potassium 100 mg 07/25/20 10:00 08/02/20 11:40 Losartan 50 Mg Tab PO Not Given QDAY SADAF Montelukast Sodium 10 mg 07/24/20 18:00 07/31/20 18:51 Montelukast 10 Mg Tab PO Not Given QPM SADAF Multivit/Ca Carb/B Cmplx/FA/Prenat 1 cap 07/26/20 10:00 08/02/20 11:41 Folic Acid/Vit B Comp W-C 1 Mg (Renal Caps) PO 1 cap QDAY SADAF Administration Multivitamins/Minerals 1 each 07/25/20 10:00 08/02/20 11:49 Multivitamins,Ther W-Minerals Tab PO 1 each QDAY SADAF Administration Ondansetron HCl 4 mg 07/24/20 12:00 Ondansetron 4 Mg/2 Ml Inj IV Q8H PRN Nausea And Vomiting Pravastatin Sodium 80 mg 07/24/20 22:00 07/31/20 21:06 Pravastatin 80 Mg Tab PO Not Given QHS SADAF Sevelamer Carbonate 800 mg 07/24/20 17:00 08/02/20 11:52 Sevelamer Carbonate 800 Mg Tab PO Not Given TIDWM SADAF Sodium Chloride 10 ml 07/24/20 12:30 08/02/20 11:51 Sodium Chloride 0.9% 10 Ml Flush Syringe IV 10 ml BID SADAF Administration Sodium Chloride 10 ml 07/24/20 12:30 07/24/20 12:39 Sodium Chloride 0.9% 10 Ml Flush Syringe IV 10 ml PRN PRN Administration LINE FLUSH Trazodone HCl 50 mg 07/24/20 22:00 07/31/20 21:06 Trazodone 50 Mg Tab PO Not Given QHS [facility] Nutrition/Malnutrition Assess - Dietary Evaluation Nutrition/Malnutrition Findings: Nutrition Notes Start: 07/25/20 13:43 Freq: Status: Active Protocol: Document 08/01/20 08:52 LP (Rec: 08/01/20 09:05 LP [id number]) Nutrition Notes Initial or Follow up Reassessment Current Diagnosis CKD (stage V CKD),Decubitus( Pressure Ulcer),Diabetes, Sepsis Other Pertinent Diagnosis on HD, Cellulitis, Gangrene, Cerebral Atherosclerosis Current Diet NPO Labs/Tests Reviewed Pertinent Medications D10 at 75ml/hr Height 5 ft 9 in Weight 80.4 kg [place] Body Weight (kg) 72.72 BMI 26.2 Weight change and time frame Wt fluctuation expected with renal Weight Status Overweight Subjective/Other Information Pt remains NPO. DIRECTOR VETERINARY recommends NPO due to delayed swallowing . Burn Absent Trauma Absent Skin Integrity/Comment Diabetic Ulcer Minimum of two criteria No physical signs of malnutrition #3 Nutrition Diagnosis Inadequate energy intake As Evidenced by Signs and Symptoms DIRECTOR VETERINARY recommends NPO due to delayed swallowing Diagnosis Progress(for reassessment Worsened documentation) #2 Nutrition Diagnosis Increased nutrient needs ( specify in comment below) Comments: protein Diagnosis Progress(for reassessment Continues documentation) Is patient on ventilator? No Is Patient Ambulatory and/or Out of Bed No REE-([facility]-confined to bed) [phone] Calculation Used for Recommendations [facility] Additional Notes PRO needs: >87g (>1.2 g/kg) Fluid needs: Urine output + 1000 mL or per MD Nutrition Intervention Change Diet Order: TF per DIRECTOR VETERINARY or comfort measures Nutrition Support: Once PEG is placed Nepro at 42ml/hr Flush with 150ml q4h Kcal 1,814 Protein (gm) 82 Fluid (mL) 733 Add Supplement/Snack (indicate name/kcal D/C /protein ) Goal #1 PEG placement or comfort measures Goal #2 Wound healing Anticipated Discharge Needs: Unable to determine at this time Follow-Up By: 08/03/20 Additional Comments Follow for POC
--- NOTE | 2020-08-02 12:53 | Progress Note ---
Assessment and Plan Cultures: 07/24/2020 blood culture: No growth A/P: 80-year-old male with ESRD on HD, diabetes, hypertension, prior CVA, vascular dementia: #Left foot cellulitis with gangrenous changes involving 1st and 2nd toes: Vascular following. Continue empiric antibiotics for now. Underwent re-vasc on 07/30/2020. #Acute encephalopathy: Neurology on board. MRI brain with advanced volume loss, no acute findings. #ESRD on HD: Renally dose antibiotics. Recs: -Continue renally dosed Zosyn, Vancomycin, D9 of 10 today Arben Payne MD, FACP [facility] O: [phone] F: [phone] Subjective Date of service: 08/02/20 Principal diagnosis: Peripheral vascular disease with gangrene Interval history: No fever today. awake and alert. Objective - Exam Narrative Exam: Physical Exam: Constitutional: awake and alert Head, Ears, Nose: Normocephalic, atraumatic. External ears, nose normal Eyes: Conjunctivae/corneas clear. No icterus. No ptosis. Neck: Supple, no meningeal signs Cardiovascular: S1, S2 normal. Respiratory: Good air entry, clear to auscultation bilaterally GI: Soft, non-tender; bowel sounds normal. No peritoneal signs Musculoskeletal: Left great toe and second toe with gangrenous change Skin: Scabs on bilateral feet. Hem/Lymphatic: No palpable cervical or supraclavicular nodes. No lymphangitis Psych: no agitation Neurological: awake, answering basic questions. - Constitutional Vitals: Vital Signs Temp Pulse Resp BP Pulse Ox 97.5 F L 78 18 100/76 94 08/02/20 08:42 08/02/20 11:52 08/02/20 08:48 08/02/20 11:52 08/02/20 08:49 Temperature -Last 24 Hours Temperature 97.5 F Temperature 99.1 F Temperature 98.1 F Temperature 98.1 F Temperature 97.8 F Temperature 97.7 F Temperature 97.7 F - Labs CBC & Chem 7: 07/31/20 14:09 08/01/20 13:49 Labs: Abnormal lab results 08/01/20 08/02/20 Range/Units 13:49 08:45 Sodium 134 L (137-145) mmol/L BUN 38 H (9-20) mg/dL Creatinine 5.7 H (0.8-1.3) mg/dL Glucose 105 H (75-100) mg/dL POC Glucose 69 L (70-105) mg/dL Calcium 8.2 L (8.4-10.2) mg/dL
--- NOTE | 2020-08-02 14:00 | Progress Note ---
Subjective Date of service: 08/02/20 Principal diagnosis: Peripheral vascular disease with gangrene Interval history: More alert today, transferred to floor Patient was seen for his renal issues Nursing, interdisciplinary and consult notes were reviewed Vitals, input and output, medications and labs were reviewed Objective - Exam Narrative Exam: General: No acute distress HEENT: Oral mucosa moist Neck: Supple, no JVD Chest: Clear to auscultation bilaterally Heart: RRR, S1 and S2, no pericardial rub Abdomen: Soft, nontender, no renal bruit Extremity: No peripheral cyanosis, edema. LE dressing noted. Neurological: Awake and alert Dermatology: No skin rash Psych: Calm and cooperative Musculoskeletal: No joint effusion - Vital Signs Vital signs: Vital Signs - 12hr 08/02/20 08/02/20 08/02/20 03:56 04:17 08:42 Temperature 99.1 F 97.5 F L Pulse Rate 78 74 Pulse Rate [ Anterior Bilateral Throughout] Respiratory 16 20 Rate Respiratory Rate [Anterior Bilateral Throughout] Blood Pressure 169/47 161/54 O2 Sat by Pulse 98 91 91 Oximetry 08/02/20 08/02/20 08/02/20 08:46 08:48 08:49 Temperature Pulse Rate 78 Pulse Rate [ 74 Anterior Bilateral Throughout] Respiratory Rate Respiratory 18 Rate [Anterior Bilateral Throughout] Blood Pressure 169/71 O2 Sat by Pulse 94 Oximetry 08/02/20 08/02/20 08/02/20 11:36 11:38 11:39 Temperature 98.1 F Pulse Rate 49 L 78 76 Pulse Rate [ Anterior Bilateral Throughout] Respiratory 20 Rate Respiratory Rate [Anterior Bilateral Throughout] Blood Pressure 100/42 100/76 100/68 O2 Sat by Pulse 85 Oximetry 08/02/20 11:52 Temperature Pulse Rate 78 Pulse Rate [ Anterior Bilateral Throughout] Respiratory Rate Respiratory Rate [Anterior Bilateral Throughout] Blood Pressure 100/76 O2 Sat by Pulse Oximetry - Lab 07/31/20 14:09 08/01/20 13:49 Most recent lab results ABG pH 7.316 pH Units (7.350-7.450) L 07/29/20 12:55 ABG pCO2 48.6 mm Hg 07/29/20 12:55 ABG pO2 131.0 mm Hg (80.0-90.0) H 07/29/20 12:55 ABG HCO3 24.3 mmol/L (20.0-26.0) 07/29/20 12:55 ABG O2 Saturation 98.3 % (95.0-99.0) 07/29/20 12:55 Calcium 8.2 mg/dL (8.4-10.2) L 08/01/20 13:49 Medications & Allergies - Medications Allergies/Adverse Reactions: Allergies No Known Allergies Allergy (Verified 05/01/15 08:52) Home Medications: Home Medications Medication Instructions Recorded Confirmed Last Taken Type Calcium Acetate [Phoslo] 667 mg PO TID 07/24/20 07/24/20 Unknown History Fenofibrate 160 mg PO QDAY 07/24/20 07/24/20 Unknown History Gabapentin [Neurontin] 100 mg PO Q8HR 07/24/20 07/24/20 Unknown History HYDROcodone/ACETAMINOPHEN 1 each PO Q8HR PRN 07/24/20 07/24/20 Unknown History [Hydrocodone-Acetamin 5-300 mg] Losartan Potassium 100 mg PO QDAY 07/24/20 07/24/20 Unknown History Montelukast [Singulair] 10 mg PO QPM 07/24/20 07/24/20 Unknown History Sevelamer Carbonate [Renvela] 800 mg PO TIDWM 07/24/20 07/24/20 Unknown History Simvastatin 40 mg PO QDAY 07/24/20 07/24/20 Unknown History allopurinoL [Zyloprim] 100 mg PO QDAY 07/24/20 07/24/20 Unknown History traZODone [Desyrel] 50 mg PO QHS 07/24/20 07/24/20 Unknown History traZODone [Desyrel] 50 mg PO QHS 07/24/20 07/24/20 Unknown History Active Medications: Generic Name Dose Route Start Last Admin Trade Name Freq PRN Reason Stop Dose Admin Acetaminophen 650 mg 07/24/20 12:34 Acetaminophen 325 Mg Tab PO Q4H PRN Pain MILD(1-3)/Fever >100.5/ANDRADE Acetaminophen 650 mg 07/31/20 13:52 07/31/20 16:11 Acetaminophen 650 Mg Rect Supp [place] 650 mg Q4H PRN Administration Fever >101 Albuterol 2.5 mg 07/24/20 12:30 Albuterol 2.5 Mg/3 Ml Nebu IH Q4HRT PRN Shortness Of Breath Albuterol/Ipratropium 1 ampul 07/29/20 11:00 08/02/20 08:51 Ipratropium/Albuterol Sulfate 3 Ml Ampul.Neb IH 1 ampul TIDRT SADAF Administration Allopurinol 100 mg 07/25/20 10:00 08/02/20 11:54 Allopurinol 100 Mg Tab PO 100 mg QDAY SADAF Administration Aspirin 81 mg 07/30/20 16:00 08/02/20 11:53 Aspirin Ec 81 Mg Tab PO 81 mg QDAY SADAF Administration Calcium Acetate 667 mg 07/24/20 17:00 08/02/20 11:50 Calcium Acetate 667 Mg Cap PO 667 mg TIDWM SADAF Administration Carvedilol 6.25 mg 07/24/20 22:00 08/02/20 11:52 Carvedilol 6.25 Mg Tab PO 6.25 mg BID SADAF Administration Clopidogrel Bisulfate 75 mg 07/31/20 10:00 08/02/20 11:49 Clopidogrel 75 Mg Tab PO 75 mg QDAY SADAF Administration Dextrose 50 ml 07/31/20 08:37 07/31/20 16:11 Dextrose 50% In Water (25gm) 50 Ml Syringe IV 50 ml Q30MIN PRN Administration Hypoglycemia Protocol Doxazosin Mesylate 4 mg 07/26/20 10:00 08/02/20 11:51 Doxazosin 4 Mg Tab PO Not Given DAILY [facility] Epoetin Jose 20,000 unit 07/26/20 10:00 08/02/20 12:24 Epoetin Jose 20,000 Unit/1 Ml Inj SUB-Q Not Given Th [facility] Fenofibrate 145 mg 07/25/20 10:00 08/02/20 12:24 Fenofibrate 145 Mg Tab PO Not Given DAILY SADAF Ferrous Sulfate 325 mg 07/24/20 22:00 08/02/20 11:49 Ferrous Sulfate 325 Mg Tab PO 325 mg BID SADAF Administration Fish Oil 1,000 mg 07/25/20 10:00 08/02/20 11:53 [place]-3 Fatty Acids/Fish Oil 1 Gram Cap PO 1,000 mg DAILY SADAF Administration Hydralazine HCl 50 mg 07/28/20 22:00 08/02/20 11:39 Hydralazine 25 Mg Tab PO Not Given Q8HR [facility] Hydralazine HCl 10 mg 07/28/20 16:22 08/02/20 08:46 Hydralazine 20 Mg/1 Ml Inj IV 10 mg Q6H PRN Administration Blood Pressure Piperacillin Sod/Tazobactam Sod 2.25 gm in 50 mls @ 100 mls/hr 07/25/20 11:00 08/02/20 11:37 Zosyn/Ns 2.25 Gm/50ml IV 08/03/20 23:59 100 mls/hr Q8H SADAF Administration Dextrose 1,000 mls @ 75 mls/hr 07/31/20 12:00 08/01/20 21:57 D10w IV 75 mls/hr DIRECT SADAF Administration Sodium Chloride 100 mls @ 999 mls/hr 08/01/20 09:55 Nacl 0.9% IV PETTY PRN Hypotension Losartan Potassium 100 mg 07/25/20 10:00 08/02/20 11:40 Losartan 50 Mg Tab PO Not Given QDAY SADAF Montelukast Sodium 10 mg 07/24/20 18:00 07/31/20 18:51 Montelukast 10 Mg Tab PO Not Given QPM [facility] Multivit/Ca Carb/B Cmplx/FA/Prenat 1 cap 07/26/20 10:00 08/02/20 11:41 Folic Acid/Vit B Comp W-C 1 Mg (Renal Caps) PO 1 cap QDAY SADAF Administration Multivitamins/Minerals 1 each 07/25/20 10:00 08/02/20 11:49 Multivitamins,Ther W-Minerals Tab PO 1 each QDAY SADAF Administration Ondansetron HCl 4 mg 07/24/20 12:00 Ondansetron 4 Mg/2 Ml Inj IV Q8H PRN Nausea And Vomiting Pravastatin Sodium 80 mg 07/24/20 22:00 07/31/20 21:06 Pravastatin 80 Mg Tab PO Not Given QHS SADAF Sevelamer Carbonate 800 mg 07/24/20 17:00 08/02/20 11:52 Sevelamer Carbonate 800 Mg Tab PO Not Given TIDWM SADAF Sodium Chloride 10 ml 07/24/20 12:30 08/02/20 11:51 Sodium Chloride 0.9% 10 Ml Flush Syringe IV 10 ml BID SADAF Administration Sodium Chloride 10 ml 07/24/20 12:30 07/24/20 12:39 Sodium Chloride 0.9% 10 Ml Flush Syringe IV 10 ml PRN PRN Administration LINE FLUSH Trazodone HCl 50 mg 07/24/20 22:00 07/31/20 21:06 Trazodone 50 Mg Tab PO Not Given QHS SADAF
[2020-08-02] MEDS: MONTELUKAST 10 MG TAB PO SCH ×2 (17:23→17:24)
[2020-08-02] MEDS: DEXTROSE 10% IN WATER 1,000 ML IV SCH (18:03)
[2020-08-03] MEDS: PIPERACIL-TAZO 2.25 GM/50 ML 2.25 GM/50 ML BAG IV SCH ×3 (04:38→22:45)
[2020-08-03] MEDS: hydrALAZINE 25 MG TAB PO SCH ×3 (05:15→23:09)
[2020-08-03] MEDS: DEXTROSE 50% IN WATER (25GM) 50 ML SYRINGE IV PRN (07:58)
[2020-08-03] MEDS: SEVELAMER CARBONATE 800 MG TAB PO SCH ×4 (07:58→17:38)
[2020-08-03] MEDS: DEXTROSE 10% IN WATER 1,000 ML IV SCH (08:24)
[2020-08-03] MEDS: CALCIUM ACETATE 667 MG CAP PO SCH ×4 (08:50→17:39)
[2020-08-03] MEDS: IPRATROPIUM/ALBUTEROL SULFATE 3 ML AMPUL.NEB IH SCH ×4 (09:45→19:56)
--- NOTE | 2020-08-03 10:13 | Progress Note ---
Assessment and Plan Assessment and plan: # Sepsis Secondary to lower extremity cellulitis Complete antibiotics [Zosyn and vancomycin] ID recommendations appreciated #Peripheral vascular disease with gangrene of the left first and second toe Now status post angiography with angioplasty of the distal femoral vessels Continue aspirin and Plavix Vascular surgery following Plan for vascularization of LE vessels #Acute metabolic encephalopathy Improved CT head negative Continue to hold all pain medications and gabapentin #Hypertension, hyperlipidemia/hypertriglyceridemia Continue hydralazine 50 mg every 8 Continue losartan Continue Coreg Fenofibrate, statins #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 #DVT prophylaxis SCD to bilateral lower extremities while in bed, prophylactic anticoagulation. History Interval history: 80 YO Male with ESRD on HD (M, W, F), HTN, DM, Vascular Dementia, Cerebral Atherosclerosis presents to ED for evaluation. Patient is confused and unable to provide detailed history at time of exam. Patient caregiver is at bedside during exam and interview and provides history. As per the patient's the patient has experienced increased weakness and confusion over the past 1 month with increased bedbound status. Patient was seen and evaluated by his vascular surgeon today and was found to have left foot cellulitis. Patient was instructed to seek further care at [facility]. Patient transported to [facility] via private vehicle for further care and evaluation of the aforementioned symptoms. The patient was seen and evaluated in the emergency department. All lab and imaging studies reviewed. Patient found to have end-stage renal disease, left foot cellulitis complicated by systemic inflammatory response syndrome, as well as peripheral vascular disease. Patient admitted to medical floor and initiated on IV antibiotic therapy. Nephrology team consulted in ED. Vascular surgery team consulted in ED. No further history is obtainable. No reports of fever, chills, chest pain, palpitation, productive cough, skin rash, syncope, trauma, recent ill contacts, or known exposure to COVID-19. Patient is unable to provide history but has a positive gag reflex and is able to protect his airway without difficulty at the time my evaluation. Prior admission on 07/05/2019 reviewed. All medication listed at time of admission has been reconciled. Advanced care planning conducted in ED. CT: Head: Negative for acute pathology. 07/25: Discussed with the IR, patient with new onset Altered mental status from the last time they saw the patient. Will begin work-up for possible underlying sepsis etiology or source unknown at this time. Will obtain ID consulted and Neurology. Continue abx, attempted to reach family. Concern for stroke is low but considering hx of vasculopathy will obtain Neurology Will also obtain wound consultation. 07/26: Some improvement noted with initiation of antibiotics. We will continue current management patient continues on hemodialysis. Will await further vascular improvement as patient is beginning to show some improvement. Discussed with case management. Apparently the person that came with the patient is not the patient's but a caregiver H&P portion of this note has been corrected. Continue wound care and every 2 hours turns. 07/27: Continue current management plan. Vascular to re-evaluate. Continue abx. MRI with no acute pathology. Agree with the D5 as patient still has some intermittent confusion. Continue to monitor. Speech evaluation for swallow management. 07/28: Patient clinically stable, continue supportive care, abx, awaiting full vascular input. cONTINUE D5 for now. 07/29: We will give patient dose of Lasix, get a chest x-ray. Discussed with nursing staff could be that the patient was appear hypoxic due to cold extremities. Will obtain an ABG. We will also obtain a pulmonary consult for clearance for anticipated vascular procedure in a.m. 07/30: Noted hypoglycemia this morning we will give D50 and amp. Patient is for procedure today. Discussed with vascular. Per discussion with nursing saturation has improved. Pulmonary input is noted. He was admitted for digital gangrene on multiple digits both fingers and toes. Was also noted to be septic requiring treatment which has led to improvement in his mental status. 07/31. Now status post angiography and angioplasty of distal femoral arteries. Now on antiplatelets. He has been having episodes of hypoglycemia. Started him on D10 water. Continue to monitor closely for now. CT head ordered to rule out any CVA though not likely. Vascular surgery following. 08/01. Patient remains lethargic. Discontinued pain medications and gabapentin. On IV antibiotics. Started on D10 water yesterday for hypoglycemia. If lethargy does not improve, will place an NG tube. CT head negative for any stroke. 08/02. More responsive today. Still gets agitated and pulling on his IV lines so was placed on restraints. Needs to have a repeat swallow evaluation. Blood glucose is table. 08/03. Resposive today. Alert and oriented x2. Will get vascular to reevaluate. Needs to have revascularization of LE vessels as per vascular. Passed swallow evaluation yesterday and has been started on a diet. Hospitalist Physical - Physical exam Narrative exam: VITAL SIGNS: Reviewed. GENERAL: Awake HEAD: No signs of head trauma. EYES: Pupils are equal. Extraocular motions intact. MOUTH: Oropharynx is normal. NECK: No adenopathy, no JVD. CHEST: Chest with diminished breath sounds bilaterally. No wheezes, rales, or rhonchi. CARDIAC: normal S1 and S2, without murmurs, gallops, or rubs. ABDOMEN: Soft, non tender and non distended. No rebound or guarding, and no masses palpated. Bowel Sounds normal. MUSCULOSKELETAL: LLE: Gangrenous looking big toe, proximal area of the leg feels warm to touch. NEUROLOGIC EXAM: Awake and alert today SKIN: No obvious lesions - Constitutional Vitals: Temp Pulse Resp BP Pulse Ox 98.2 F 68 20 136/38 98 08/03/20 07:58 08/03/20 08:35 08/03/20 08:35 08/03/20 07:58 08/03/20 08:35 Results - Labs CBC & Chem 7: 07/31/20 14:09 08/01/20 13:49 Labs: Laboratory Last Values WBC 9.6 K/mm3 (4.5-11.0) 07/31/20 14:09 RBC 2.73 M/mm3 (3.65-5.03) L 07/31/20 14:09 Hgb 8.7 gm/dl (11.8-15.2) L 07/31/20 14:09 Hct 26.6 % (35.5-45.6) L 07/31/20 14:09 MCV 97 fl (84-94) H 07/31/20 14:09 MCH 32 pg (28-32) 07/31/20 14: MCHC 33 % (32-34) 07/31/20 14:09 RDW 15.3 % (13.2-15.2) H 07/31/20 14:09 Plt Count 200 K/mm3 (140-440) 07/31/20 14:09 Lymph % (Auto) 14.2 % (13.4-35.0) 07/31/20 14:09 [place] % (Auto) 8.7 % (0.0-7.3) H 07/31/20 14:09 Eos % (Auto) 0.9 % (0.0-4.3) 07/31/20 14:09 Baso % (Auto) 1.5 % (0.0-1.8) 07/31/20 14:09 Lymph # (Auto) 1.4 K/mm3 (1.2-5.4) 07/31/20 14:09 [place] # (Auto) 0.8 K/mm3 (0.0-0.8) 07/31/20 14:09 Eos # (Auto) 0.1 K/mm3 (0.0-0.4) 07/31/20 14:09 Baso # (Auto) 0.1 K/mm3 (0.0-0.1) 07/31/20 14:09 Seg Neutrophils % 74.7 % (40.0-70.0) H 07/31/20 14:09 Seg Neutrophils # 7.2 K/mm3 (1.8-7.7) 07/31/20 14:09 PT 13.5 Sec. (12.2-14.9) 07/24/20 08:40 INR 1.04 (0.87-1.13) 07/24/20 08:40 APTT 45.0 Sec. (24.2-36.6) H 07/24/20 08:40 ABG pH 7.316 pH Units (7.350-7.450) L 07/29/20 12:55 ABG pCO2 48.6 mm Hg 07/29/20 12:55 ABG pO2 131.0 mm Hg (80.0-90.0) H 07/29/20 12:55 ABG HCO3 24.3 mmol/L (20.0-26.0) 07/29/20 12:55 ABG O2 Saturation 98.3 % (95.0-99.0) 07/29/20 12:55 ABG O2 Content 13.1 (0.0-44) 07/29/20 12:55 ABG Base Excess -2.0 mmol/L (-2.0-3.0) 07/29/20 12:55 ABG Hemoglobin 9.4 gm/dl (14.0-18.0) L 07/29/20 12:55 ABG Carboxyhemoglobin 1.1 % (0.0-5.0) 07/29/20 12:55 ABG Methemoglobin 0.6 % (0.0-1.5) 07/29/20 12:55 Oxyhemoglobin 96.7 % (95.0-99.0) 07/29/20 12:55 FiO2 32 % 07/29/20 12:55 Sodium 134 mmol/L (137-145) L 08/01/20 13:49 Potassium 4.5 mmol/L (3.6-5.0) 08/01/20 13:49 Chloride 98.8 mmol/L (98-107) 08/01/20 13:49 Carbon Dioxide 25 mmol/L (22-30) 08/01/20 13:49 Anion Gap 15 mmol/L 08/01/20 13:49 BUN 38 mg/dL (9-20) H 08/01/20 13:49 Creatinine 5.7 mg/dL (0.8-1.3) H 08/01/20 13:49 Estimated GFR 10 ml/min 08/01/20 13:49 BUN/Creatinine Ratio 7 % 08/01/20 13:49 Glucose 105 mg/dL (75-100) H 08/01/20 13:49 POC Glucose 69 mg/dL (70-105) L 08/02/20 08:45 Lactic Acid 0.90 mmol/L (0.7-2.0) 07/24/20 10:20 Calcium 8.2 mg/dL (8.4-10.2) L 08/01/20 13:49 Ionized Calcium 5.1 mg/dL (4.8-5.6) 07/30/20 09:03 Prealbumin 0.116 g/L (0.200-0.400) L 07/27/20 16:25 Vitamin B1 17 nmol/L (8-30) 07/27/20 16:25 Vitamin B12 980.0 pg/mL (211-911) H 07/27/20 16:25 Folate 12.73 ng/mL (7.3-26.0) 07/27/20 16:25 Nasal Screen MRSA (PCR) Negative (Negative) 07/24/20 Unknown Random Vancomycin 20.7 ug/mL (0-40.0) 08/01/20 05:16 Copper 113 mcg/dL (70-175) 07/27/20 16:25 Hepatitis A IgM Ab Non-reactive (NonReactive) 07/25/20 15:30 Hep Bs Antigen Non-reactive (Negative) 07/25/20 15:30 Hep B Core IgM Ab Non-reactive (NonReactive) 07/25/20 15:30 Hepatitis C Antibody Non-reactive (NonReactive) 07/25/20 15:30 Jaimes/IV: Voiding Method Diaper Active Medications - Current Medications Current Medications: Generic Name Dose Route Start Last Admin Trade Name Freq PRN Reason Stop Dose Admin Acetaminophen 650 mg 07/24/20 12:34 Acetaminophen 325 Mg Tab PO Q4H PRN Pain MILD(1-3)/Fever >100.5/ANDRADE Acetaminophen 650 mg 07/31/20 13:52 07/31/20 16:11 Acetaminophen 650 Mg Rect Supp SD 650 mg Q4H PRN Administration Fever >101 Albuterol 2.5 mg 07/24/20 12:30 Albuterol 2.5 Mg/3 Ml Nebu IH Q4HRT PRN Shortness Of Breath Albuterol/Ipratropium 1 ampul 07/29/20 11:00 08/02/20 22:48 Ipratropium/Albuterol Sulfate 3 Ml Ampul.Neb IH 1 ampul TIDRT SADAF Administration Allopurinol 100 mg 07/25/20 10:00 08/02/20 11:54 Allopurinol 100 Mg Tab PO 100 mg QDAY SADAF Administration Aspirin 81 mg 07/30/20 16:00 08/02/20 11:53 Aspirin Ec 81 Mg Tab PO 81 mg QDAY SADAF Administration Calcium Acetate 667 mg 07/24/20 17:00 08/03/20 08:50 Calcium Acetate 667 Mg Cap PO Not Given TIDWM [facility] Carvedilol 6.25 mg 07/24/20 22:00 08/02/20 21:55 Carvedilol 6.25 Mg Tab PO Not Given BID [facility] Clopidogrel Bisulfate 75 mg 07/31/20 10:00 08/02/20 11:49 Clopidogrel 75 Mg Tab PO 75 mg QDAY SADAF Administration Dextrose 50 ml 07/31/20 08:37 08/03/20 07:58 Dextrose 50% In Water (25gm) 50 Ml Syringe IV 50 ml Q30MIN PRN Administration Hypoglycemia Protocol Doxazosin Mesylate 4 mg 07/26/20 10:00 08/02/20 11:51 Doxazosin 4 Mg Tab PO Not Given DAILY [facility] Epoetin Jose 20,000 unit 07/26/20 10:00 08/02/20 12:24 Epoetin Jose 20,000 Unit/1 Ml Inj SUB-Q Not Given Th [facility] Fenofibrate 145 mg 07/25/20 10:00 08/02/20 12:24 Fenofibrate 145 Mg Tab PO Not Given DAILY [facility] Ferrous Sulfate 325 mg 07/24/20 22:00 08/02/20 11:49 Ferrous Sulfate 325 Mg Tab PO 325 mg BID SADAF Administration Fish Oil 1,000 mg 07/25/20 10:00 08/02/20 11:53 [place]-3 Fatty Acids/Fish Oil 1 Gram Cap PO 1,000 mg DAILY SADAF Administration Hydralazine HCl 50 mg 07/28/20 22:00 08/03/20 05:15 Hydralazine 25 Mg Tab PO Not Given Q8HR [facility] Hydralazine HCl 10 mg 07/28/20 16:22 08/02/20 08:46 Hydralazine 20 Mg/1 Ml Inj IV 10 mg Q6H PRN Administration Blood Pressure Piperacillin Sod/Tazobactam Sod 2.25 gm in 50 mls @ 100 mls/hr 07/25/20 11:00 08/03/20 04:38 Zosyn/Ns 2.25 Gm/50ml IV 08/03/20 23:59 100 mls/hr Q8H SADAF Administration Dextrose 1,000 mls @ 75 mls/hr 07/31/20 12:00 08/03/20 08:24 D10w IV 75 mls/hr DIRECT SADAF Administration Sodium Chloride 100 mls @ 999 mls/hr 08/01/20 09:55 Nacl 0.9% IV PETTY PRN Hypotension Losartan Potassium 100 mg 07/25/20 10:00 08/02/20 11:40 Losartan 50 Mg Tab PO Not Given QDAY SADAF Montelukast Sodium 10 mg 07/24/20 18:00 08/02/20 17:24 Montelukast 10 Mg Tab PO 10 mg QPM SADAF Administration Multivit/Ca Carb/B Cmplx/FA/Prenat 1 cap 07/26/20 10:00 08/02/20 11:41 Folic Acid/Vit B Comp W-C 1 Mg (Renal Caps) PO 1 cap QDAY SADAF Administration Multivitamins/Minerals 1 each 07/25/20 10:00 08/02/20 11:49 Multivitamins,Ther W-Minerals Tab PO 1 each QDAY SADAF Administration Ondansetron HCl 4 mg 07/24/20 12:00 Ondansetron 4 Mg/2 Ml Inj IV Q8H PRN Nausea And Vomiting Pravastatin Sodium 80 mg 07/24/20 22:00 07/31/20 21:06 Pravastatin 80 Mg Tab PO Not Given QHS SADAF Sevelamer Carbonate 800 mg 07/24/20 17:00 08/03/20 08:15 Sevelamer Carbonate 800 Mg Tab PO Not Given TIDWM SADAF Sodium Chloride 10 ml 07/24/20 12:30 08/03/20 05:18 Sodium Chloride 0.9% 10 Ml Flush Syringe IV 10 ml BID SADAF Administration Sodium Chloride 10 ml 07/24/20 12:30 07/24/20 12:39 Sodium Chloride 0.9% 10 Ml Flush Syringe IV 10 ml PRN PRN Administration LINE FLUSH Trazodone HCl 50 mg 07/24/20 22:00 07/31/20 21:06 Trazodone 50 Mg Tab PO Not Given QHS [facility] Nutrition/Malnutrition Assess - Dietary Evaluation Nutrition/Malnutrition Findings: Nutrition Notes Start: 07/25/20 13: 43 Freq: Status: Active Protocol: Document 08/03/20 08:38 AT (Rec: 08/03/20 08:51 AT [id number]) Co-Sign 08/03/20 08:38 Nutrition Notes Initial or Follow up Reassessment Current Diagnosis CKD (stage V CKD),Decubitus( Pressure Ulcer),Diabetes, Sepsis,Hypertension,Stroke, Hyperlipidemia Other Pertinent Diagnosis on HD, Cellulitis, Gangrene, Cerebral Atherosclerosis, Peripheral Vascular Current Diet Mechanical Soft Diet Labs/Tests No new labs Pertinent Medications D10W at 75 mL/hr Renvela Phoslo Ferrous Sulfate Fish Oil MVI Height 5 ft 9 in Weight 71.8 kg [place] Body Weight (kg) 72.72 BMI 23.3 Weight Status Appropriate Subjective/Other Information Follow up for POC. 08/02 INTERNET SALES MANAGER recommended upgrading diet to mechanical soft with chopped meats, and thin liquids. Burn Absent Trauma Absent Difficulty In Swallowing Skin Integrity/Comment Diabetic Ulcer Minimum of two criteria No Reduced Central Office Operator Supervisor Strength Measurably Reduced (severe) #3 Nutrition Diagnosis Inadequate energy intake #2 Nutrition Diagnosis Increased nutrient needs ( specify in comment below) Comments: protein Diagnosis Progress(for reassessment Continues documentation) Is patient on ventilator? No Is Patient Ambulatory and/or Out of Bed No REE-([facility]-confined to bed) 3563.313 Calculation Used for Recommendations [facility] Additional Notes PRO needs: >86 g(>1.2 g/kg) Fluid needs: Urine output + 1000 mL or per MD Nutrition Intervention Change Diet Order: Continue Mechanical Soft Diet with chopped meat and thin liquids per INTERNET SALES MANAGER Goal #1 Meet at least 75% of estimated energy and protein needs via diet Goal #2 Wound healing Anticipated Discharge Needs: Mechanical Soft Renal/ Consistent CHO Follow-Up By: 08/07/20 Additional Comments F/U for stable intakes
--- NOTE | 2020-08-03 12:07 | Progress Note ---
Assessment and Plan Cultures: 07/24/2020 blood culture: No growth A/P: 80-year-old male with ESRD on HD, diabetes, hypertension, prior CVA, vascular dementia: #Left foot cellulitis with gangrenous changes involving 1st and 2nd toes: Vascular following. Underwent re-vasc on 07/30/2020. #Acute encephalopathy: Neurology on board. MRI brain with advanced volume loss, no acute findings. #ESRD on HD: Renally dose antibiotics. Recs: -Continue renally dosed Zosyn, Vancomycin, D10 of 10 today -final disposition per vascular ID will sign off. Please call with questions. Arben Payne MD, FACP [facility] ([facility]) O: [phone] F: [phone] Subjective Date of service: 08/03/20 Principal diagnosis: Peripheral vascular disease with gangrene Interval history: No fever today. awake and alert. Seen at HD. Objective - Exam Narrative Exam: Physical Exam: Constitutional: awake and alert Head, Ears, Nose: Normocephalic, atraumatic. External ears, nose normal Eyes: Conjunctivae/corneas clear. No icterus. No ptosis. Neck: Supple, no meningeal signs Cardiovascular: S1, S2 normal. Respiratory: Good air entry, clear to auscultation bilaterally GI: Soft, non-tender; bowel sounds normal. No peritoneal signs Musculoskeletal: Left great toe and second toe with dry gangrenous change Skin: Scabs on bilateral feet. Hem/Lymphatic: No palpable cervical or supraclavicular nodes. No lymphangitis Psych: no agitation Neurological: awake, answering basic questions. - Constitutional Vitals: Vital Signs Temp Pulse Resp BP Pulse Ox 98.2 F 68 20 136/38 98 08/03/20 07:58 08/03/20 08:35 08/03/20 08:35 08/03/20 07:58 08/03/20 08:35 Temperature -Last 24 Hours Temperature 98.2 F Temperature 98.1 F Temperature 97.9 F Temperature 97.5 F - Labs CBC & Chem 7: 07/31/20 14:09 08/01/20 13:49 Labs: Abnormal lab results 08/03/20 08/03/20 08/03/20 Range/Units 07:55 08:03 11:32 POC Glucose 38 L 223 H 136 H (70-105) mg/dL
[2020-08-03] MEDS: FENOFIBRATE 145 MG TAB PO SCH (13:24)
[2020-08-03] MEDS: OMEGA-3 FATTY ACIDS/FISH OIL 1 GRAM CAP PO SCH (13:24)
[2020-08-03] MEDS: FOLIC ACID/VIT B COMP W-C 1 MG (RENAL CAPS) PO SCH (13:24)
[2020-08-03] MEDS: DOXAZOSIN 4 MG TAB PO SCH (13:25)
[2020-08-03] MEDS: ASPIRIN EC 81 MG TAB PO SCH (13:25)
[2020-08-03] MEDS: MULTIVITAMINS,THER W-MINERALS TAB PO SCH (13:25)
[2020-08-03] MEDS: CLOPIDOGREL 75 MG TAB PO SCH (13:25)
[2020-08-03] MEDS: carvediloL 6.25 MG TAB PO SCH ×2 (13:25→22:50)
[2020-08-03] MEDS: FERROUS SULFATE 325 MG TAB PO SCH ×3 (13:26→23:05)
[2020-08-03] MEDS: LOSARTAN 50 MG TAB PO SCH (13:27)
[2020-08-03] MEDS: allopurinoL 100 MG TAB PO SCH (14:06)
[2020-08-03] MEDS: MONTELUKAST 10 MG TAB PO SCH (18:08)
--- NOTE | 2020-08-03 19:57 | Progress Note ---
Assessment and Plan Assessment and plan #End-stage renal disease: Continue MWF Patient dialysis access is a central venous catheter. #Continue antihypertensives #Continue epogen weekly #Keep MAP>65 #Diet and nutrition: Patient needs to be on high protein diet, #Volume and electrolyte Stable at this time #Bone mineral disorder: Monitor phosphorus and PTH level periodically, outpatient labs satisfactory #Multiple other complex comorbidities currently being managed by primary team #peripheral arterial disease/gangrene, vascular note reviewed #Acute encephalopathy, pain medications discontinued. CT head negative for stroke. Management per primary. Will continue to follow and make recommendation for renal standpoint Subjective Date of service: 08/03/20 Principal diagnosis: Peripheral vascular disease with gangrene Interval history: Seen on HD, tolerating without complications Patient was seen for his renal issues Nursing, interdisciplinary and consult notes were reviewed Vitals, input and output, medications and labs were reviewed Objective - Exam Narrative Exam: General: No acute distress HEENT: Oral mucosa moist Neck: Supple, no JVD Chest: Clear to auscultation bilaterally Heart: RRR, S1 and S2, no pericardial rub Abdomen: Soft, nontender, no renal bruit Extremity: No peripheral cyanosis, edema. LE dressing noted. Neurological: Awake and alert Dermatology: No skin rash Psych: Calm and cooperative Musculoskeletal: No joint effusion - Vital Signs Vital signs: Vital Signs - 12hr 08/03/20 08/03/20 08/03/20 07:58 08:35 09:50 Temperature 98.2 F 98.9 F Pulse Rate 67 68 Pulse Rate [ Anterior Bilateral Throughout] Pulse Rate [ 68 Left Dorsalis Pedis] Pulse Rate [ 68 Right Dorsalis Pedis] Respiratory 20 20 16 Rate Respiratory Rate [Anterior Bilateral Throughout] Blood Pressure 136/38 118/40 O2 Sat by Pulse 95 98 Oximetry 08/03/20 08/03/20 08/03/20 09:55 10:00 10:15 Temperature Pulse Rate 67 73 66 Pulse Rate [ Anterior Bilateral Throughout] Pulse Rate [ Left Dorsalis Pedis] Pulse Rate [ Right Dorsalis Pedis] Respiratory Rate Respiratory Rate [Anterior Bilateral Throughout] Blood Pressure 132/42 163/61 113/60 O2 Sat by Pulse Oximetry 08/03/20 08/03/20 08/03/20 10:30 10:45 11:00 Temperature Pulse Rate 65 66 63 Pulse Rate [ Anterior Bilateral Throughout] Pulse Rate [ Left Dorsalis Pedis] Pulse Rate [ Right Dorsalis Pedis] Respiratory Rate Respiratory Rate [Anterior Bilateral Throughout] Blood Pressure 132/54 116/53 124/58 O2 Sat by Pulse Oximetry 08/03/20 08/03/20 08/03/20 11:15 11:30 11:45 Temperature Pulse Rate 64 66 66 Pulse Rate [ Anterior Bilateral Throughout] Pulse Rate [ Left Dorsalis Pedis] Pulse Rate [ Right Dorsalis Pedis] Respiratory Rate Respiratory Rate [Anterior Bilateral Throughout] Blood Pressure 133/49 122/73 123/50 O2 Sat by Pulse Oximetry 08/03/20 08/03/20 08/03/20 12:00 12:15 12:30 Temperature Pulse Rate 66 67 72 Pulse Rate [ Anterior Bilateral Throughout] Pulse Rate [ Left Dorsalis Pedis] Pulse Rate [ Right Dorsalis Pedis] Respiratory Rate Respiratory Rate [Anterior Bilateral Throughout] Blood Pressure 122/40 127/54 165/48 O2 Sat by Pulse Oximetry 08/03/20 08/03/20 08/03/20 12:45 12:50 13:25 Temperature 98.9 F Pulse Rate 64 63 70 Pulse Rate [ Anterior Bilateral Throughout] Pulse Rate [ Left Dorsalis Pedis] Pulse Rate [ Right Dorsalis Pedis] Respiratory 18 Rate Respiratory Rate [Anterior Bilateral Throughout] Blood Pressure 162/54 137/49 151/42 O2 Sat by Pulse Oximetry 08/03/20 08/03/20 08/03/20 13:27 13:30 15:20 Temperature Pulse Rate 70 77 Pulse Rate [ Anterior Bilateral Throughout] Pulse Rate [ Left Dorsalis Pedis] Pulse Rate [ Right Dorsalis Pedis] Respiratory Rate Respiratory Rate [Anterior Bilateral Throughout] Blood Pressure 151/42 151/42 O2 Sat by Pulse Oximetry 08/03/20 08/03/20 08/03/20 15:40 17:35 17:40 Temperature 97.6 F Pulse Rate 75 Pulse Rate [ 88 Anterior Bilateral Throughout] Pulse Rate [ Left Dorsalis Pedis] Pulse Rate [ Right Dorsalis Pedis] Respiratory 20 Rate Respiratory 18 Rate [Anterior Bilateral Throughout] Blood Pressure 119/59 O2 Sat by Pulse 99 97 Oximetry - Lab 07/31/20 14:09 08/01/20 13:49 Most recent lab results ABG pH 7.316 pH Units (7.350-7.450) L 07/29/20 12:55 ABG pCO2 48.6 mm Hg 07/29/20 12:55 ABG pO2 131.0 mm Hg (80.0-90.0) H 07/29/20 12:55 ABG HCO3 24.3 mmol/L (20.0-26.0) 07/29/20 12:55 ABG O2 Saturation 98.3 % (95.0-99.0) 07/29/20 12:55 Calcium 8.2 mg/dL (8.4-10.2) L 08/01/20 13:49 Medications & Allergies - Medications Allergies/Adverse Reactions: Allergies No Known Allergies Allergy (Verified 05/01/15 08:52) Home Medications: Home Medications Medication Instructions Recorded Confirmed Last Taken Type Calcium Acetate [Phoslo] 667 mg PO TID 07/24/20 07/24/20 Unknown History Fenofibrate 160 mg PO QDAY 07/24/20 07/24/20 Unknown History Gabapentin [Neurontin] 100 mg PO Q8HR 07/24/20 07/24/20 Unknown History HYDROcodone/ACETAMINOPHEN 1 each PO Q8HR PRN 07/24/20 07/24/20 Unknown History [Hydrocodone-Acetamin 5-300 mg] Losartan Potassium 100 mg PO QDAY 07/24/20 07/24/20 Unknown History Montelukast [Singulair] 10 mg PO QPM 07/24/20 07/24/20 Unknown History Sevelamer Carbonate [Renvela] 800 mg PO TIDWM 07/24/20 07/24/20 Unknown History Simvastatin 40 mg PO QDAY 07/24/20 07/24/20 Unknown History allopurinoL [Zyloprim] 100 mg PO QDAY 07/24/20 07/24/20 Unknown History traZODone [Desyrel] 50 mg PO QHS 07/24/20 07/24/20 Unknown History traZODone [Desyrel] 50 mg PO QHS 07/24/20 07/24/20 Unknown History Active Medications: Generic Name Dose Route Start Last Admin Trade Name Freq PRN Reason Stop Dose Admin Acetaminophen 650 mg 07/24/20 12:34 Acetaminophen 325 Mg Tab PO Q4H PRN Pain MILD(1-3)/Fever >100.5/ANDRADE Acetaminophen 650 mg 07/31/20 13:52 07/31/20 16:11 Acetaminophen 650 Mg Rect Supp OR 650 mg Q4H PRN Administration Fever >101 Albuterol 2.5 mg 07/24/20 12:30 Albuterol 2.5 Mg/3 Ml Nebu IH Q4HRT PRN Shortness Of Breath Albuterol/Ipratropium 1 ampul 07/29/20 11:00 08/03/20 17:41 Ipratropium/Albuterol Sulfate 3 Ml Ampul.Neb IH 1 ampul TIDRT SADAF Administration Allopurinol 100 mg 07/25/20 10:00 08/03/20 14:06 Allopurinol 100 Mg Tab PO 100 mg QDAY SADAF Administration Aspirin 81 mg 07/30/20 16:00 08/03/20 13:25 Aspirin Ec 81 Mg Tab PO 81 mg QDAY SADAF Administration Calcium Acetate 667 mg 07/24/20 17:00 08/03/20 17:39 Calcium Acetate 667 Mg Cap PO Not Given TIDWM SADAF Carvedilol 6.25 mg 07/24/20 22:00 08/03/20 13:25 Carvedilol 6.25 Mg Tab PO 6.25 mg BID SADAF Administration Clopidogrel Bisulfate 75 mg 07/31/20 10:00 08/03/20 13:25 Clopidogrel 75 Mg Tab PO 75 mg QDAY SADAF Administration Dextrose 50 ml 07/31/20 08:37 08/03/20 07:58 Dextrose 50% In Water (25gm) 50 Ml Syringe IV 50 ml Q30MIN PRN Administration Hypoglycemia Protocol Doxazosin Mesylate 4 mg 07/26/20 10:00 08/03/20 13:25 Doxazosin 4 Mg Tab PO 4 mg DAILY SADAF Administration Epoetin Jose 20,000 unit 07/26/20 10:00 08/02/20 12:24 Epoetin Jose 20,000 Unit/1 Ml Inj SUB-Q Not Given Th SADAF Fenofibrate 145 mg 07/25/20 10:00 08/03/20 13:24 Fenofibrate 145 Mg Tab PO 145 mg DAILY SADAF Administration Ferrous Sulfate 325 mg 07/24/20 22:00 08/03/20 13:26 Ferrous Sulfate 325 Mg Tab PO 325 mg BID SADAF Administration Fish Oil 1,000 mg 07/25/20 10:00 08/03/20 13:24 [place]-3 Fatty Acids/Fish Oil 1 Gram Cap PO 1,000 mg DAILY SADAF Administration Hydralazine HCl 50 mg 07/28/20 22:00 08/03/20 14:07 Hydralazine 25 Mg Tab PO Not Given Q8HR SADAF Hydralazine HCl 10 mg 07/28/20 16:22 08/02/20 08:46 Hydralazine 20 Mg/1 Ml Inj IV 10 mg Q6H PRN Administration Blood Pressure Piperacillin Sod/Tazobactam Sod 2.25 gm in 50 mls @ 100 mls/hr 07/25/20 11:00 08/03/20 13:32 Zosyn/Ns 2.25 Gm/50ml IV 08/03/20 23:59 100 mls/hr Q8H SADAF Administration Dextrose 1,000 mls @ 75 mls/hr 07/31/20 12:00 08/03/20 08:24 D10w IV 75 mls/hr DIRECT SADAF Administration Sodium Chloride 100 mls @ 999 mls/hr 08/01/20 09:55 Nacl 0.9% IV PETTY PRN Hypotension Losartan Potassium 100 mg 07/25/20 10:00 08/03/20 13:27 Losartan 50 Mg Tab PO 100 mg QDAY SADAF Administration Montelukast Sodium 10 mg 07/24/20 18:00 08/03/20 18:08 Montelukast 10 Mg Tab PO 10 mg QPM SADAF Administration Multivit/Ca Carb/B Cmplx/FA/Prenat 1 cap 07/26/20 10:00 08/03/20 13:24 Folic Acid/Vit B Comp W-C 1 Mg (Renal Caps) PO 1 cap QDAY SADAF Administration Multivitamins/Minerals 1 each 07/25/20 10:00 08/03/20 13:25 Multivitamins,Ther W-Minerals Tab PO 1 each QDAY SADAF Administration Ondansetron HCl 4 mg 07/24/20 12:00 Ondansetron 4 Mg/2 Ml Inj IV Q8H PRN Nausea And Vomiting Pravastatin Sodium 80 mg 07/24/20 22:00 07/31/20 21:06 Pravastatin 80 Mg Tab PO Not Given QHS SADAF Sevelamer Carbonate 800 mg 07/24/20 17:00 08/03/20 17:38 Sevelamer Carbonate 800 Mg Tab PO Not Given TIDWM SADAF Sodium Chloride 10 ml 07/24/20 12:30 08/03/20 13:26 Sodium Chloride 0.9% 10 Ml Flush Syringe IV 10 ml BID SADAF Administration Sodium Chloride 10 ml 07/24/20 12:30 07/24/20 12:39 Sodium Chloride 0.9% 10 Ml Flush Syringe IV 10 ml PRN PRN Administration LINE FLUSH Trazodone HCl 50 mg 07/24/20 22:00 07/31/20 21:06 Trazodone 50 Mg Tab PO Not Given QHS SADAF
[2020-08-03] MEDS: traZODone 50 MG TAB PO SCH (22:50)
[2020-08-03] MEDS: PRAVASTATIN 80 MG TAB PO SCH (22:50)
[2020-08-04] MEDS: DEXTROSE 10% IN WATER 1,000 ML IV SCH (04:58)
[2020-08-04] MEDS: hydrALAZINE 25 MG TAB PO SCH ×3 (06:13→21:32)
[2020-08-04] MEDS: DEXTROSE 50% IN WATER (25GM) 50 ML SYRINGE IV PRN (07:56)
[2020-08-04] MEDS: IPRATROPIUM/ALBUTEROL SULFATE 3 ML AMPUL.NEB IH SCH ×3 (08:05→20:25)
[2020-08-04] MEDS: LOSARTAN 50 MG TAB PO SCH (10:31)
[2020-08-04] MEDS: allopurinoL 100 MG TAB PO SCH (10:31)
[2020-08-04] MEDS: ASPIRIN EC 81 MG TAB PO SCH (10:31)
[2020-08-04] MEDS: DOXAZOSIN 4 MG TAB PO SCH (10:31)
[2020-08-04] MEDS: OMEGA-3 FATTY ACIDS/FISH OIL 1 GRAM CAP PO SCH (10:31)
[2020-08-04] MEDS: FERROUS SULFATE 325 MG TAB PO SCH ×2 (10:31→21:33)
[2020-08-04] MEDS: FOLIC ACID/VIT B COMP W-C 1 MG (RENAL CAPS) PO SCH (10:31)
[2020-08-04] MEDS: FENOFIBRATE 145 MG TAB PO SCH (10:31)
[2020-08-04] MEDS: CLOPIDOGREL 75 MG TAB PO SCH (10:32)
[2020-08-04] MEDS: MULTIVITAMINS,THER W-MINERALS TAB PO SCH (10:32)
[2020-08-04] MEDS: carvediloL 6.25 MG TAB PO SCH ×2 (10:32→21:33)
[2020-08-04] MEDS: SEVELAMER CARBONATE 800 MG TAB PO SCH ×4 (10:33→17:46)
[2020-08-04] MEDS: CALCIUM ACETATE 667 MG CAP PO SCH ×3 (10:33→17:46)
--- NOTE | 2020-08-04 11:09 | Progress Note ---
Assessment and Plan Assessment and plan: # Sepsis Secondary to lower extremity cellulitis Completed antibiotics ID recommendations appreciated #Peripheral vascular disease with gangrene of the left first and second toe Now status post angiography with angioplasty of the distal femoral vessels Continue aspirin and Plavix Vascular surgery following Plan for vascularization of LE vessels on 08/06. 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 Sons number is Timmy Beckman #DVT prophylaxis SCD to bilateral lower extremities while in bed, prophylactic anticoagulation. History Interval history: 80 YO Male with ESRD on HD (M, W, F), HTN, DM, Vascular Dementia, Cerebral Atherosclerosis presents to ED for evaluation. Patient is confused and unable to provide detailed history at time of exam. Patient caregiver is at bedside during exam and interview and provides history. As per the patient's the patient has experienced increased weakness and confusion over the past 1 month with increased bedbound status. Patient was seen and evaluated by his vascular surgeon today and was found to have left foot cellulitis. Patient was instructed to seek further care at [facility]. Patient transported to [facility] via private vehicle for further care and evaluation of the aforementioned symptoms. The patient was seen and evaluated in the emergency department. All lab and imaging studies reviewed. Patient found to have end-stage renal disease, left foot cellulitis complicated by systemic inflammatory response syndrome, as well as peripheral vascular disease. Patient admitted to medical floor and initiated on IV antibiotic therapy. Nephrology team consulted in ED. Vascular surgery team consulted in ED. No further history is obtainable. No reports of fever, chills, chest pain, palpitation, productive cough, skin rash, syncope, trauma, recent ill contacts, or known exposure to COVID-19. Patient is unable to provide history but has a positive gag reflex and is able to protect his airway without difficulty at the time my evaluation. Prior admission on 07/05/2019 reviewed. All medication listed at time of admission has been reconciled. Advanced care planning conducted in ED. CT: Head: Negative for acute pathology. 07/25: Discussed with the IR, patient with new onset Altered mental status from the last time they saw the patient. Will begin work-up for possible underlying sepsis etiology or source unknown at this time. Will obtain ID consulted and Neurology. Continue abx, attempted to reach family. Concern for stroke is low but considering hx of vasculopathy will obtain Neurology Will also obtain wound consultation. 07/26: Some improvement noted with initiation of antibiotics. We will continue current management patient continues on hemodialysis. Will await further vascular improvement as patient is beginning to show some improvement. Discussed with case management. Apparently the person that came with the patient is not the patient's but a caregiver H&P portion of this note has been corrected. Continue wound care and every 2 hours turns. 07/27: Continue current management plan. Vascular to re-evaluate. Continue abx. MRI with no acute pathology. Agree with the D5 as patient still has some intermittent confusion. Continue to monitor. Speech evaluation for swallow management. 07/28: Patient clinically stable, continue supportive care, abx, awaiting full vascular input. cONTINUE D5 for now. 07/29: We will give patient dose of Lasix, get a chest x-ray. Discussed with nursing staff could be that the patient was appear hypoxic due to cold extremities. Will obtain an ABG. We will also obtain a pulmonary consult for clearance for anticipated vascular procedure in a.m. 07/30: Noted hypoglycemia this morning we will give D50 and amp. Patient is for procedure today. Discussed with vascular. Per discussion with nursing saturation has improved. Pulmonary input is noted. He was admitted for digital gangrene on multiple digits both fingers and toes. Was also noted to be septic requiring treatment which has led to improvement in his mental status. 07/31. Now status post angiography and angioplasty of distal femoral arteries. Now on antiplatelets. He has been having episodes of hypoglycemia. Started him on D10 water. Continue to monitor closely for now. CT head ordered to rule out any CVA though not likely. Vascular surgery following. 08/01. Patient remains lethargic. Discontinued pain medications and gabapentin. On IV antibiotics. Started on D10 water yesterday for hypoglycemia. If lethargy does not improve, will place an NG tube. CT head negative for any stroke. 08/02. More responsive today. Still gets agitated and pulling on his IV lines so was placed on restraints. Needs to have a repeat swallow evaluation. Blood glucose is table. 08/03. Responsive today. Alert and oriented x2. Will get vascular to reevaluate. Needs to have revascularization of LE vessels as per vascular. Passed swallow evaluation yesterday and has been started on a diet. 08/04. Plan for vascularization of the extremities as per vascular. Hospitalist Physical - Physical exam Narrative exam: VITAL SIGNS: Reviewed. GENERAL: Awake HEAD: No signs of head trauma. EYES: Pupils are equal. Extraocular motions intact. MOUTH: Oropharynx is normal. NECK: No adenopathy, no JVD. CHEST: Chest with diminished breath sounds bilaterally. No wheezes, rales, or rhonchi. CARDIAC: normal S1 and S2, without murmurs, gallops, or rubs. ABDOMEN: Soft, non tender and non distended. No rebound or guarding, and no masses palpated. Bowel Sounds normal. MUSCULOSKELETAL: LLE: Gangrenous looking big toe, proximal area of the leg feels warm to touch. NEUROLOGIC EXAM: Awake and alert today SKIN: No obvious lesions - Constitutional Vitals: Temp Pulse Resp BP Pulse Ox 97.6 F 72 18 174/54 98 08/04/20 07:34 08/04/20 10:32 08/04/20 07:34 08/04/20 10:32 08/04/20 07:35 Results - Labs CBC & Chem 7: 08/04/20 12:06 08/04/20 12:06 Labs: Laboratory Last Values WBC 9.6 K/mm3 (4.5-11.0) 07/31/20 14:09 RBC 2.73 M/mm3 (3.65-5.03) L 07/31/20 14:09 Hgb 8.7 gm/dl (11.8-15.2) L 07/31/20 14:09 Hct 26.6 % (35.5-45.6) L 07/31/20 14:09 MCV 97 fl (84-94) H 07/31/20 14:09 MCH 32 pg (28-32) 07/31/20 14: MCHC 33 % (32-34) 07/31/20 14:09 RDW 15.3 % (13.2-15.2) H 07/31/20 14:09 Plt Count 200 K/mm3 (140-440) 07/31/20 14:09 Lymph % (Auto) 14.2 % (13.4-35.0) 07/31/20 14:09 [place] % (Auto) 8.7 % (0.0-7.3) H 07/31/20 14:09 Eos % (Auto) 0.9 % (0.0-4.3) 07/31/20 14:09 Baso % (Auto) 1.5 % (0.0-1.8) 07/31/20 14:09 Lymph # (Auto) 1.4 K/mm3 (1.2-5.4) 07/31/20 14:09 [place] # (Auto) 0.8 K/mm3 (0.0-0.8) 07/31/20 14:09 Eos # (Auto) 0.1 K/mm3 (0.0-0.4) 07/31/20 14:09 Baso # (Auto) 0.1 K/mm3 (0.0-0.1) 07/31/20 14:09 Seg Neutrophils % 74.7 % (40.0-70.0) H 07/31/20 14:09 Seg Neutrophils # 7.2 K/mm3 (1.8-7.7) 07/31/20 14:09 PT 13.5 Sec. (12.2-14.9) 07/24/20 08:40 INR 1.04 (0.87-1.13) 07/24/20 08:40 APTT 45.0 Sec. (24.2-36.6) H 07/24/20 08:40 ABG pH 7.316 pH Units (7.350-7.450) L 07/29/20 12:55 ABG pCO2 48.6 mm Hg 07/29/20 12:55 ABG pO2 131.0 mm Hg (80.0-90.0) H 07/29/20 12:55 ABG HCO3 24.3 mmol/L (20.0-26.0) 07/29/20 12:55 ABG O2 Saturation 98.3 % (95.0-99.0) 07/29/20 12:55 ABG O2 Content 13.1 (0.0-44) 07/29/20 12:55 ABG Base Excess -2.0 mmol/L (-2.0-3.0) 07/29/20 12:55 ABG Hemoglobin 9.4 gm/dl (14.0-18.0) L 07/29/20 12:55 ABG Carboxyhemoglobin 1.1 % (0.0-5.0) 07/29/20 12:55 ABG Methemoglobin 0.6 % (0.0-1.5) 07/29/20 12:55 Oxyhemoglobin 96.7 % (95.0-99.0) 07/29/20 12:55 FiO2 32 % 07/29/20 12:55 Sodium 134 mmol/L (137-145) L 08/01/20 13:49 Potassium 4.5 mmol/L (3.6-5.0) 08/01/20 13:49 Chloride 98.8 mmol/L (98-107) 08/01/20 13:49 Carbon Dioxide 25 mmol/L (22-30) 08/01/20 13:49 Anion Gap 15 mmol/L 08/01/20 13:49 BUN 38 mg/dL (9-20) H 08/01/20 13:49 Creatinine 5.7 mg/dL (0.8-1.3) H 08/01/20 13:49 Estimated GFR 10 ml/min 08/01/20 13:49 BUN/Creatinine Ratio 7 % 08/01/20 13:49 Glucose 105 mg/dL (75-100) H 08/01/20 13:49 POC Glucose 133 mg/dL (70-105) H 08/03/20 21:38 Lactic Acid 0.90 mmol/L (0.7-2.0) 07/24/20 10:20 Calcium 8.2 mg/dL (8.4-10.2) L 08/01/20 13:49 Ionized Calcium 5.1 mg/dL (4.8-5.6) 07/30/20 09:03 Prealbumin 0.116 g/L (0.200-0.400) L 07/27/20 16:25 Vitamin B1 17 nmol/L (8-30) 07/27/20 16:25 Vitamin B12 980.0 pg/mL (211-911) H 07/27/20 16:25 Folate 12.73 ng/mL (7.3-26.0) 07/27/20 16:25 Nasal Screen MRSA (PCR) Negative (Negative) 07/24/20 Unknown Random Vancomycin 20.7 ug/mL (0-40.0) 08/01/20 05:16 Copper 113 mcg/dL (70-175) 07/27/20 16:25 Hepatitis A IgM Ab Non-reactive (NonReactive) 07/25/20 15:30 Hep Bs Antigen Non-reactive (Negative) 07/25/20 15:30 Hep B Core IgM Ab Non-reactive (NonReactive) 07/25/20 15:30 Hepatitis C Antibody Non-reactive (NonReactive) 07/25/20 15:30 Jaimes/IV: Voiding Method Diaper Active Medications - Current Medications Current Medications: Generic Name Dose Route Start Last Admin Trade Name Freq PRN Reason Stop Dose Admin Acetaminophen 650 mg 07/24/20 12:34 Acetaminophen 325 Mg Tab PO Q4H PRN Pain MILD(1-3)/Fever >100.5/ANDRADE Acetaminophen 650 mg 07/31/20 13:52 07/31/20 16:11 Acetaminophen 650 Mg Rect Supp OH 650 mg Q4H PRN Administration Fever >101 Albuterol 2.5 mg 07/24/20 12:30 Albuterol 2.5 Mg/3 Ml Nebu IH Q4HRT PRN Shortness Of Breath Albuterol/Ipratropium 1 ampul 07/29/20 11:00 08/04/20 08:05 Ipratropium/Albuterol Sulfate 3 Ml Ampul.Neb IH 1 ampul TIDRT SADAF Administration Allopurinol 100 mg 07/25/20 10:00 08/04/20 10:31 Allopurinol 100 Mg Tab PO 100 mg QDAY SADAF Administration Aspirin 81 mg 07/30/20 16:00 08/04/20 10:31 Aspirin Ec 81 Mg Tab PO 81 mg QDAY SADAF Administration Calcium Acetate 667 mg 07/24/20 17:00 08/04/20 10:33 Calcium Acetate 667 Mg Cap PO 667 mg TIDWM SADAF Administration Carvedilol 6.25 mg 07/24/20 22:00 08/04/20 10:32 Carvedilol 6.25 Mg Tab PO 6.25 mg BID SADAF Administration Clopidogrel Bisulfate 75 mg 07/31/20 10:00 08/04/20 10:32 Clopidogrel 75 Mg Tab PO 75 mg QDAY SAADF Administration Dextrose 50 ml 07/31/20 08:37 08/04/20 07:56 Dextrose 50% In Water (25gm) 50 Ml Syringe IV 20 ml Q30MIN PRN Administration Hypoglycemia Protocol Doxazosin Mesylate 4 mg 07/26/20 10:00 08/04/20 10:31 Doxazosin 4 Mg Tab PO 4 mg DAILY SADAF Administration Epoetin Jose 20,000 unit 07/26/20 10:00 08/02/20 12:24 Epoetin Jose 20,000 Unit/1 Ml Inj SUB-Q Not Given Th SADAF Fenofibrate 145 mg 07/25/20 10:00 08/04/20 10:31 Fenofibrate 145 Mg Tab PO 145 mg DAILY SADAF Administration Ferrous Sulfate 325 mg 07/24/20 22:00 08/04/20 10:31 Ferrous Sulfate 325 Mg Tab PO 325 mg BID SADAF Administration Fish Oil 1,000 mg 07/25/20 10:00 08/04/20 10:31 [place]-3 Fatty Acids/Fish Oil 1 Gram Cap PO 1,000 mg DAILY SADAF Administration Hydralazine HCl 50 mg 07/28/20 22:00 08/04/20 06:13 Hydralazine 25 Mg Tab PO 50 mg Q8HR SADAF Administration Hydralazine HCl 10 mg 07/28/20 16:22 08/02/20 08:46 Hydralazine 20 Mg/1 Ml Inj IV 10 mg Q6H PRN Administration Blood Pressure Dextrose 1,000 mls @ 75 mls/hr 07/31/20 12:00 08/04/20 04:58 D10w IV 75 mls/hr DIRECT SADAF Administration Sodium Chloride 100 mls @ 999 mls/hr 08/01/20 09:55 Nacl 0.9% IV PETTY PRN Hypotension Losartan Potassium 100 mg 07/25/20 10:00 08/04/20 10:31 Losartan 50 Mg Tab PO 100 mg QDAY SADAF Administration Montelukast Sodium 10 mg 07/24/20 18:00 08/03/20 18:08 Montelukast 10 Mg Tab PO 10 mg QPM SADAF Administration Multivit/Ca Carb/B Cmplx/FA/Prenat 1 cap 07/26/20 10:00 08/04/20 10:31 Folic Acid/Vit B Comp W-C 1 Mg (Renal Caps) PO 1 cap QDAY SADAF Administration Multivitamins/Minerals 1 each 07/25/20 10:00 08/04/20 10:32 Multivitamins,Ther W-Minerals Tab PO 1 each QDAY SADAF Administration Ondansetron HCl 4 mg 07/24/20 12:00 Ondansetron 4 Mg/2 Ml Inj IV Q8H PRN Nausea And Vomiting Pravastatin Sodium 80 mg 07/24/20 22:00 08/03/20 22:50 Pravastatin 80 Mg Tab PO 80 mg QHS SADAF Administration Sevelamer Carbonate 800 mg 07/24/20 17:00 08/04/20 10:33 Sevelamer Carbonate 800 Mg Tab PO Not Given TIDWM SADAF Sodium Chloride 10 ml 07/24/20 12:30 08/04/20 10:32 Sodium Chloride 0.9% 10 Ml Flush Syringe IV 10 ml BID SADAF Administration Sodium Chloride 10 ml 07/24/20 12:30 07/24/20 12:39 Sodium Chloride 0.9% 10 Ml Flush Syringe IV 10 ml PRN PRN Administration LINE FLUSH Trazodone HCl 50 mg 07/24/20 22:00 08/03/20 22:50 Trazodone 50 Mg Tab PO 50 mg QHS SADAF Administration Nutrition/Malnutrition Assess - Dietary Evaluation Nutrition/Malnutrition Findings: Nutrition Notes Start: 07/25/20 13:43 Freq: Status: Active Protocol: Document 08/03/20 08:38 AT (Rec: 08/03/20 08:51 AT [id number]) Co-Sign 08/03/20 08:38 Nutrition Notes Initial or Follow up Reassessment Current Diagnosis CKD (stage V CKD),Decubitus( Pressure Ulcer),Diabetes, Sepsis,Hypertension,Stroke, Hyperlipidemia Other Pertinent Diagnosis on HD, Cellulitis, Gangrene, Cerebral Atherosclerosis, Peripheral Vascular Current Diet Mechanical Soft Diet Labs/Tests POC BG 223 No new labs Pertinent Medications D10W at 75 mL/hr Renvela Phoslo Ferrous Sulfate Fish Oil MVI Height 5 ft 9 in Weight 71.8 kg [place] Body Weight (kg) 72.72 BMI 23.3 Weight Status Appropriate Subjective/Other Information Follow up for POC. 08/02 [employer] recommended upgrading diet to mechanical soft with chopped meats, and thin liquids. Pt is off the floor for HD at time of visit. Percent of energy/protein needs met: 0%/0% Burn Absent Trauma Absent Difficulty In Swallowing Skin Integrity/Comment Diabetic Ulcer Current % PO Negligible Minimum of two criteria No Reduced [employer] Strength Measurably Reduced (severe) #3 Nutrition Diagnosis Inadequate energy intake Diagnosis Progress(for reassessment Continues documentation) #2 Nutrition Diagnosis Increased nutrient needs ( specify in comment below) Comments: protein Diagnosis Progress(for reassessment Continues documentation) Is patient on ventilator? No Is Patient Ambulatory and/or Out of Bed No REE-([facility]-confined to bed) 1720.084 Calculation Used for Recommendations [facility] Additional Notes PRO needs: >86 g(>1.2 g/kg) Fluid needs: Urine output + 1000 mL or per MD Nutrition Intervention Change Diet Order: Continue Mechanical Soft Diet with chopped meat and thin liquids per [employer]ER Add Supplement/Snack (indicate name/kcal Nepro daily /protein ) Provides kCal: 425 Provides Protein (gm) 19 Goal #1 Meet at least 75% of estimated energy and protein needs via diet and ONS Goal #2 Wound healing Anticipated Discharge Needs: Mechanical Soft Renal/ Consistent CHO Follow-Up By: 08/07/20 Additional Comments F/U for stable intakes, ONS tolerance
--- NOTE | 2020-08-04 11:15 | Progress Note ---
Assessment and Plan Has been stable on 2-3 liters NC. Suggest just arranging for home for discharge. Given age and history of renal disease, likely has some underlying heart issues which should qualify him for oxygen. Could put diagnosis of acute respiratory failure secondary to pulmonary edema and end stage renal disease. Or maybe his vascular health can be used as he likely has chronic hypoxemia from underlying vascular disease. Subjective Date of service: 08/04/20 Principal diagnosis: Peripheral vascular disease with gangrene Interval history: Placed back on oxygen the same day he was weaned to room air. No real documentation as to why. Saw one sat of 85% at 11:30 that day on the . No other acute events. Objective Vital Signs - 12hr 08/03/20 08/04/20 08/04/20 23:52 04:26 05:00 Temperature 98.0 F 98.1 F Pulse Rate 72 69 69 Respiratory 18 18 Rate Blood Pressure 139/36 162/42 O2 Sat by Pulse 99 100 Oximetry 08/04/20 08/04/20 08/04/20 06:13 07:34 07:35 Temperature 97.6 F Pulse Rate 78 72 Respiratory 18 Rate Blood Pressure 162/42 174/54 O2 Sat by Pulse 98 Oximetry 08/04/20 08/04/20 10:31 10:32 Temperature Pulse Rate 72 72 Respiratory Rate Blood Pressure 174/54 174/54 O2 Sat by Pulse Oximetry Constitutional: no acute distress, alert Eyes: non-icteric ENT: oropharynx moist Neck: supple Effort: normal Ascultation: Bilateral: clear (anteriorly) Cardiovascular: regular rate and rhythm (no mrg) Gastrointestinal: normoactive bowel sounds, soft Integumentary: other (dry gangrene 1st toe on L) Extremities: no cyanosis, no edema Neurologic: normal mental status, non-focal exam, pupils equal and round Psychiatric: mood appropriate, affect normal CBC and BMP: 07/31/20 14:09 08/01/20 13:49 ABG, PT/INR, D-dimer: ABG ABG pH 7.316 pH Units (7.350-7.450) L 07/29/20 12:55 ABG pCO2 48.6 mm Hg 07/29/20 12:55 ABG pO2 131.0 mm Hg (80.0-90.0) H 07/29/20 12:55 ABG O2 Saturation 98.3 % (95.0-99.0) 07/29/20 12:55 PT/INR, D-dimer PT 13.5 Sec. (12.2-14.9) 07/24/20 08:40 INR 1.04 (0.87-1.13) 07/24/20 08:40 Abnormal lab findings: Abnormal Labs 07/24/20 07/24/20 07/24/20 08:40 08:40 08:40 WBC 11.3 H RBC 3.40 L Hgb 11.0 L Hct 33.0 L MCV 97 H RDW 15.6 H Lymph % (Auto) [place] % (Auto) Lymph # (Auto) Seg Neutrophils % Seg Neutrophils # APTT 45.0 H ABG pH ABG pO2 ABG Hemoglobin Sodium Potassium BUN 38 H Creatinine 4.7 H Glucose POC Glucose Calcium Prealbumin Vitamin B12 07/24/20 07/24/20 07/24/20 15:41 15:57 20:52 WBC RBC Hgb Hct MCV RDW Lymph % (Auto) [place] % (Auto) Lymph # (Auto) Seg Neutrophils % Seg Neutrophils # APTT ABG pH ABG pO2 ABG Hemoglobin Sodium Potassium BUN Creatinine Glucose POC Glucose 18 L 128 H 108 H Calcium Prealbumin Vitamin B12 07/25/20 07/25/20 07/25/20 05:42 05:42 07:43 WBC 11.4 H RBC 3.02 L Hgb 9.5 L Hct 29.8 L MCV 99 H RDW 15.9 H Lymph % (Auto) 9.0 L [place] % (Auto) Lymph # (Auto) 1.0 L Seg Neutrophils % 82.6 H Seg Neutrophils # 9.4 H APTT ABG pH ABG pO2 ABG Hemoglobin Sodium Potassium 5.1 H BUN 53 H Creatinine 6.1 H Glucose 122 H POC Glucose 108 H Calcium Prealbumin Vitamin B12 07/25/20 07/25/20 07/26/20 11:18 21:17 11:35 WBC RBC Hgb Hct MCV RDW Lymph % (Auto) [place] % (Auto) Lymph # (Auto) Seg Neutrophils % Seg Neutrophils # APTT ABG pH ABG pO2 ABG Hemoglobin Sodium Potassium BUN Creatinine Glucose POC Glucose 133 H 68 L 45 L Calcium Prealbumin Vitamin B12 07/26/20 07/26/20 07/26/20 12:27 12:51 16:27 WBC RBC Hgb Hct MCV RDW Lymph % (Auto) [place] % (Auto) Lymph # (Auto) Seg Neutrophils % Seg Neutrophils # APTT ABG pH ABG pO2 ABG Hemoglobin Sodium Potassium BUN Creatinine Glucose POC Glucose 65 L 124 H 52 L Calcium Prealbumin Vitamin B12 07/26/20 07/27/20 07/27/20 18:13 05:21 05:21 WBC 11.5 H RBC 3.16 L Hgb 10.0 L Hct 29.8 L MCV 95 H RDW Lymph % (Auto) [place] % (Auto) Lymph # (Auto) Seg Neutrophils % Seg Neutrophils # APTT ABG pH ABG pO2 ABG Hemoglobin Sodium Potassium BUN 45 H Creatinine 5.6 H Glucose POC Glucose 147 H Calcium Prealbumin Vitamin B12 07/27/20 07/27/20 07/27/20 07:37 09:10 16:25 WBC RBC Hgb Hct MCV RDW Lymph % (Auto) [place] % (Auto) Lymph # (Auto) Seg Neutrophils % Seg Neutrophils # APTT ABG pH ABG pO2 ABG Hemoglobin Sodium Potassium BUN Creatinine Glucose POC Glucose 41 L 129 H Calcium Prealbumin 0.116 L Vitamin B12 07/27/20 07/27/20 07/28/20 16:25 21:16 11:41 WBC RBC Hgb Hct MCV RDW Lymph % (Auto) [place] % (Auto) Lymph # (Auto) Seg Neutrophils % Seg Neutrophils # APTT ABG pH ABG pO2 ABG Hemoglobin Sodium Potassium BUN Creatinine Glucose POC Glucose 123 H 117 H Calcium Prealbumin Vitamin B12 980.0 H 07/28/20 07/28/20 07/29/20 15:47 22:07 07:42 WBC RBC Hgb Hct MCV RDW Lymph % (Auto) [place] % (Auto) Lymph # (Auto) Seg Neutrophils % Seg Neutrophils # APTT ABG pH ABG pO2 ABG Hemoglobin Sodium Potassium BUN Creatinine Glucose POC Glucose 148 H 119 H 106 H Calcium Prealbumin Vitamin B12 07/29/20 07/29/20 07/29/20 11:08 12:55 22:46 WBC RBC Hgb Hct MCV RDW Lymph % (Auto) [place] % (Auto) Lymph # (Auto) Seg Neutrophils % Seg Neutrophils # APTT ABG pH 7.316 L ABG pO2 131.0 H ABG Hemoglobin 9.4 L Sodium Potassium BUN Creatinine Glucose POC Glucose 117 H 125 H Calcium Prealbumin Vitamin B12 03/08/21 03/08/21 03/08/21 04:17 04:17 07:50 WBC RBC 2.95 L Hgb 9.4 L Hct 28.4 L MCV 96 H RDW Lymph % (Auto) [place] % (Auto) Lymph # (Auto) Seg Neutrophils % Seg Neutrophils # APTT ABG pH ABG pO2 ABG Hemoglobin Sodium Potassium BUN 46 H Creatinine 5.8 H Glucose POC Glucose 47 L Calcium 8.3 L Prealbumin Vitamin B12 07/30/20 07/30/20 07/31/20 16:33 21:25 07:26 WBC RBC Hgb Hct MCV RDW Lymph % (Auto) [place] % (Auto) Lymph # (Auto) Seg Neutrophils % Seg Neutrophils # APTT ABG pH ABG pO2 ABG Hemoglobin Sodium Potassium 5.4 H BUN 50 H Creatinine 5.8 H Glucose 112 H POC Glucose 123 H 59 L Calcium 8.1 L Prealbumin Vitamin B12 07/31/20 07/31/20 07/31/20 09:03 10:47 14:09 WBC RBC 2.73 L Hgb 8.7 L Hct 26.6 L MCV 97 H RDW 15.3 H Lymph % (Auto) [place] % (Auto) 8.7 H Lymph # (Auto) Seg Neutrophils % 74.7 H Seg Neutrophils # APTT ABG pH ABG pO2 ABG Hemoglobin Sodium Potassium BUN 29 H Creatinine 4.3 H Glucose 106 H POC Glucose 48 L Calcium 8.0 L Prealbumin Vitamin B12 07/31/20 07/31/20 08/01/20 16:01 20:04 10:42 WBC RBC Hgb Hct MCV RDW Lymph % (Auto) [place] % (Auto) Lymph # (Auto) Seg Neutrophils % Seg Neutrophils # APTT ABG pH ABG pO2 ABG Hemoglobin Sodium Potassium BUN Creatinine Glucose POC Glucose 69 L 111 H 109 H Calcium Prealbumin Vitamin B12 08/01/20 08/02/20 08/03/20 13:49 08:45 07:55 WBC RBC Hgb Hct MCV RDW Lymph % (Auto) [place] % (Auto) Lymph # (Auto) Seg Neutrophils % Seg Neutrophils # APTT ABG pH ABG pO2 ABG Hemoglobin Sodium 134 L Potassium BUN 38 H Creatinine 5.7 H Glucose 105 H POC Glucose 69 L 38 L Calcium 8.2 L Prealbumin Vitamin B12 0308/03/20 08/03/20 08:03 11:32 12:30 WBC RBC Hgb Hct MCV RDW Lymph % (Auto) [place] % (Auto) Lymph # (Auto) Seg Neutrophils % Seg Neutrophils # APTT ABG pH ABG pO2 ABG Hemoglobin Sodium Potassium BUN Creatinine Glucose POC Glucose 223 H 136 H 119 H Calcium Prealbumin Vitamin B12 08/03/20 21:38 WBC RBC Hgb Hct MCV RDW Lymph % (Auto) [place] % (Auto) Lymph # (Auto) Seg Neutrophils % Seg Neutrophils # APTT ABG pH ABG pO2 ABG Hemoglobin Sodium Potassium BUN Creatinine Glucose POC Glucose 133 H Calcium Prealbumin Vitamin B12
[2020-08-04 12:56] LABS: Hematocrit 25.4 % (35.5-45.6); Hemoglobin 8.4 gm/dl (11.8-15.2); Mean Corpuscular HGB Conc 33 % (32-34); Mean Corpuscular Volume 97 fl (84-94); Platelet Count 146 K/mm3 (140-440); Red Blood Count 2.63 M/mm3 (3.65-5.03)
[2020-08-04 13:14] LABS: Basophils # (Auto) 0.1 K/mm3 (0.0-0.1); Basophils % (Auto) 1.8 % (0.0-1.8); Eosinophils # (Auto) 0.3 K/mm3 (0.0-0.4); Eosinophils % (Auto) 3.1 % (0.0-4.3); Lymphocytes # (Auto) 0.6 K/mm3 (1.2-5.4); Lymphocytes % (Auto) 7.6 % (13.4-35.0); Monocytes # (Auto) 0.5 K/mm3 (0.0-0.8); Monocytes % (Auto) 5.7 % (0.0-7.3)
[2020-08-04 13:16] LABS: Albumin 2.2 g/dL (3.9-5); Calcium 7.8 mg/dL (8.4-10.2)
--- NOTE | 2020-08-04 14:44 | Progress Note ---
Assessment and Plan 80-year-old male with end-stage renal disease, bilateral upper extremity digital gangrene, left lower extremity first digit and second digit gangrene, and severe peripheral vascular disease. Status post revascularization of the left lower extremity with an antegrade approach. Patient will need further revascularization of the left iliac system and the bilateral upper extremities. Mental status has improved. Discussed revascularization of his bilateral upper extremities and left iliac system from a right femoral approach with the patient. Risks, benefits, and alternatives discussed. Plan for revascularization on Thursday with anesthesia again. Subjective Date of service: 08/04/20 Principal diagnosis: Peripheral vascular disease with gangrene Interval history: Patient's mental status has improved. He has dry gangrene of his left lower extremity first and second digit, and beginning to have worsening dry gangrene of his left and right upper extremity second digit. His left lower extremity foot pain has resolved after prior revascularization. Objective - Constitutional Vitals: Vital Signs - 12hr 08/04/20 08/04/20 08/04/20 04:26 05:00 06:13 Temperature 98.1 F Pulse Rate 69 69 78 Respiratory 18 Rate Blood Pressure 162/42 162/42 Blood Pressure [Left] O2 Sat by Pulse 100 Oximetry 08/04/20 08/04/20 08/04/20 07:34 07:35 10:31 Temperature 97.6 F Pulse Rate 72 72 Respiratory 18 Rate Blood Pressure 174/54 174/54 Blood Pressure [Left] O2 Sat by Pulse 98 Oximetry 08/04/20 08/04/20 08/04/20 10:32 12:49 14:35 Temperature 98.3 F Pulse Rate 72 60 60 Respiratory 15 Rate Blood Pressure 174/54 139/41 Blood Pressure 139/41 [Left] O2 Sat by Pulse 85 Oximetry General appearance: Present: no acute distress - EENT Eyes: EOM intact ENT: hearing intact - Respiratory Respiratory effort: normal Extremities: normal temperature, normal color, abnormal (see subjective) Extremity abnormal: pulses diminished - Psychiatric Psychiatric: appropriate mood/affect, cooperative, other (Mental status much better) - Labs CBC & Chem 7: 08/04/20 12:06 08/04/20 12:06 Labs: Abnormal lab results 08/03/20 08/04/20 08/04/20 Range/Units 21:38 07:32 08:25 RBC (3.65-5.03) M/mm3 Hgb (11.8-15.2) gm/dl Hct (35.5-45.6) % MCV (84-94) fl Lymph % (Auto) (13.4-35.0) % Lymph # (Auto) (1.2-5.4) K/mm3 Seg Neutrophils % (40.0-70.0) % Sodium (137-145) mmol/L Chloride (98-107) mmol/L Creatinine (0.8-1.3) mg/dL Glucose (75-100) mg/dL POC Glucose 133 H 54 L 126 H (70-105) mg/dL Calcium (8.4-10.2) mg/dL Total Protein (6.3-8.2) g/dL Albumin (3.9-5) g/dL 08/04/20 08/04/20 Range/Units 12:06 12:06 RBC 2.63 L (3.65-5.03) M/mm3 Hgb 8.4 L (11.8-15.2) gm/dl Hct 25.4 L (35.5-45.6) % MCV 97 H (84-94) fl Lymph % (Auto) 7.6 L (13.4-35.0) % Lymph # (Auto) 0.6 L (1.2-5.4) K/mm3 Seg Neutrophils % 81.8 H (40.0-70.0) % Sodium 132 L (137-145) mmol/L Chloride 96.8 L (98-107) mmol/L Creatinine 4.0 H (0.8-1.3) mg/dL Glucose 131 H (75-100) mg/dL POC Glucose (70-105) mg/dL Calcium 7.8 L (8.4-10.2) mg/dL Total Protein 5.3 L (6.3-8.2) g/dL Albumin 2.2 L (3.9-5) g/dL Medications & Allergies - Medications Allergies/Adverse Reactions: Allergies No Known Allergies Allergy (Verified 05/01/15 08:52) Home Medications: Home Medications Medication Instructions Recorded Confirmed Last Taken Type Calcium Acetate [Phoslo] 667 mg PO TID 07/24/20 07/24/20 Unknown History Fenofibrate 160 mg PO QDAY 07/24/20 07/24/20 Unknown History Gabapentin [Neurontin] 100 mg PO Q8HR 07/24/20 07/24/20 Unknown History HYDROcodone/ACETAMINOPHEN 1 each PO Q8HR PRN 07/24/20 07/24/20 Unknown History [Hydrocodone-Acetamin 5-300 mg] Losartan Potassium 100 mg PO QDAY 07/24/20 07/24/20 Unknown History Montelukast [Singulair] 10 mg PO QPM 07/24/20 07/24/20 Unknown History Sevelamer Carbonate [Renvela] 800 mg PO TIDWM 07/24/20 07/24/20 Unknown History Simvastatin 40 mg PO QDAY 07/24/20 07/24/20 Unknown History allopurinoL [Zyloprim] 100 mg PO QDAY 07/24/20 07/24/20 Unknown History traZODone [Desyrel] 50 mg PO QHS 07/24/20 07/24/20 Unknown History traZODone [Desyrel] 50 mg PO QHS 07/24/20 07/24/20 Unknown History Active Medications: Generic Name Dose Route Start Last Admin Trade Name Freq PRN Reason Stop Dose Admin Acetaminophen 650 mg 07/24/20 12:34 Acetaminophen 325 Mg Tab PO Q4H PRN Pain MILD(1-3)/Fever >100.5/ANDRADE Acetaminophen 650 mg 07/31/20 13:52 07/31/20 16:11 Acetaminophen 650 Mg Rect Supp DC 650 mg Q4H PRN Administration Fever >101 Albuterol 2.5 mg 07/24/20 12:30 Albuterol 2.5 Mg/3 Ml Nebu IH Q4HRT PRN Shortness Of Breath Albuterol/Ipratropium 1 ampul 07/29/20 11:00 08/04/20 08:05 Ipratropium/Albuterol Sulfate 3 Ml Ampul.Neb IH 1 ampul TIDRT SADAF Administration Allopurinol 100 mg 07/25/20 10:00 08/04/20 10:31 Allopurinol 100 Mg Tab PO 100 mg QDAY SADAF Administration Aspirin 81 mg 07/30/20 16:00 08/04/20 10:31 Aspirin Ec 81 Mg Tab PO 81 mg QDAY SADAF Administration Calcium Acetate 667 mg 07/24/20 17:00 08/04/20 12:53 Calcium Acetate 667 Mg Cap PO 667 mg TIDWM SADAF Administration Carvedilol 6.25 mg 07/24/20 22:00 08/04/20 10:32 Carvedilol 6.25 Mg Tab PO 6.25 mg BID SADAF Administration Clopidogrel Bisulfate 75 mg 07/31/20 10:00 08/04/20 10:32 Clopidogrel 75 Mg Tab PO 75 mg QDAY SADAF Administration Dextrose 50 ml 07/31/20 08:37 08/04/20 07:56 Dextrose 50% In Water (25gm) 50 Ml Syringe IV 20 ml Q30MIN PRN Administration Hypoglycemia Protocol Doxazosin Mesylate 4 mg 07/26/20 10:00 08/04/20 10:31 Doxazosin 4 Mg Tab PO 4 mg DAILY SADAF Administration Epoetin Jose 20,000 unit 07/26/20 10:00 08/02/20 12:24 Epoetin Jose 20,000 Unit/1 Ml Inj SUB-Q Not Given Th [facility] Fenofibrate 145 mg 07/25/20 10:00 08/04/20 10:31 Fenofibrate 145 Mg Tab PO 145 mg DAILY SADAF Administration Ferrous Sulfate 325 mg 07/24/20 22:00 08/04/20 10:31 Ferrous Sulfate 325 Mg Tab PO 325 mg BID SADAF Administration Fish Oil 1,000 mg 07/25/20 10:00 08/04/20 10:31 [place]-3 Fatty Acids/Fish Oil 1 Gram Cap PO 1,000 mg DAILY SADAF Administration Hydralazine HCl 50 mg 07/28/20 22:00 08/04/20 14:35 Hydralazine 25 Mg Tab PO Not Given Q8HR [facility] Hydralazine HCl 10 mg 07/28/20 16:22 08/02/20 08:46 Hydralazine 20 Mg/1 Ml Inj IV 10 mg Q6H PRN Administration Blood Pressure Dextrose 1,000 mls @ 75 mls/hr 07/31/20 12:00 08/04/20 04:58 D10w IV 75 mls/hr DIRECT SADAF Administration Sodium Chloride 100 mls @ 999 mls/hr 08/01/20 09:55 Nacl 0.9% IV PETTY PRN Hypotension Losartan Potassium 100 mg 07/25/20 10:00 08/04/20 10:31 Losartan 50 Mg Tab PO 100 mg QDAY SADAF Administration Montelukast Sodium 10 mg 07/24/20 18:00 08/03/20 18:08 Montelukast 10 Mg Tab PO 10 mg QPM SADAF Administration Multivit/Ca Carb/B Cmplx/FA/Prenat 1 cap 07/26/20 10:00 08/04/20 10:31 Folic Acid/Vit B Comp W-C 1 Mg (Renal Caps) PO 1 cap QDAY SADAF Administration Multivitamins/Minerals 1 each 07/25/20 10:00 08/04/20 10:32 Multivitamins,Ther W-Minerals Tab PO 1 each QDAY SADAF Administration Ondansetron HCl 4 mg 07/24/20 12:00 Ondansetron 4 Mg/2 Ml Inj IV Q8H PRN Nausea And Vomiting Pravastatin Sodium 80 mg 07/24/20 22:00 08/03/20 22:50 Pravastatin 80 Mg Tab PO 80 mg QHS SADAF Administration Sevelamer Carbonate 800 mg 07/24/20 17:00 08/04/20 14:38 Sevelamer Carbonate 800 Mg Tab PO 800 mg TIDWM SADAF Administration Sodium Chloride 10 ml 07/24/20 12:30 08/04/20 10:32 Sodium Chloride 0.9% 10 Ml Flush Syringe IV 10 ml BID SADAF Administration Sodium Chloride 10 ml 07/24/20 12:30 07/24/20 12:39 Sodium Chloride 0.9% 10 Ml Flush Syringe IV 10 ml PRN PRN Administration LINE FLUSH Trazodone HCl 50 mg 07/24/20 22:00 08/03/20 22:50 Trazodone 50 Mg Tab PO 50 mg QHS SADAF Administration
[2020-08-04] MEDS: MONTELUKAST 10 MG TAB PO SCH (17:55)
--- NOTE | 2020-08-04 20:30 | Progress Note ---
Assessment and Plan Assessment and plan #End-stage renal disease: Continue MWF Patient dialysis access is a central venous catheter. #Continue antihypertensives #Continue epogen weekly #Keep MAP>65 #Diet and nutrition: Patient needs to be on high protein diet, #Volume and electrolyte Stable at this time #Bone mineral disorder: Monitor phosphorus and PTH level periodically, outpatient labs satisfactory #Multiple other complex comorbidities currently being managed by primary team #peripheral arterial disease/gangrene, vascular note reviewed. Plan for rev ascularization Thursday. #Acute encephalopathy, pain medications discontinued. CT head negative for [facility]. Management per primary. Will continue to follow and make recommendation for renal standpoint Subjective Date of service: 08/04/20 Principal diagnosis: Peripheral vascular disease with gangrene Interval history: Mental status improved today Patient was seen for his renal issues Nursing, interdisciplinary and consult notes were reviewed Vitals, input and output, medications and labs were reviewed Objective - Exam Narrative Exam: General: No acute distress HEENT: Oral mucosa moist Neck: Supple, no JVD Chest: Clear to auscultation bilaterally Heart: RRR, S1 and S2, no pericardial rub Abdomen: Soft, nontender, no renal bruit Extremity: No peripheral cyanosis, edema. LE dressing noted. Neurological: Awake and alert Dermatology: No skin rash Psych: Calm and cooperative Musculoskeletal: No joint effusion - Vital Signs Vital signs: Vital Signs - 12hr 08/04/20 08/04/20 08/04/20 08:45 10:00 10:31 Temperature Pulse Rate 74 72 Pulse Rate [ Anterior Bilateral Throughout] Respiratory Rate Respiratory Rate [Anterior Bilateral Throughout] Blood Pressure 174/54 Blood Pressure [Left] O2 Sat by Pulse 95 Oximetry 08/04/20 08/04/20 08/04/20 10:32 12:49 14:35 Temperature 98.3 F Pulse Rate 72 60 60 Pulse Rate [ Anterior Bilateral Throughout] Respiratory 15 Rate Respiratory Rate [Anterior Bilateral Throughout] Blood Pressure 174/54 139/41 Blood Pressure 139/41 [Left] O2 Sat by Pulse 85 Oximetry 08/04/20 08/04/20 08/04/20 15:30 15:33 16:23 Temperature 98.3 F Pulse Rate 70 72 Pulse Rate [ 72 Anterior Bilateral Throughout] Respiratory 12 Rate Respiratory 18 Rate [Anterior Bilateral Throughout] Blood Pressure 93/57 Blood Pressure [Left] O2 Sat by Pulse 85 Oximetry 0308/04/20 08/04/20 19:15 20:23 20:24 Temperature 98.3 F Pulse Rate 69 Pulse Rate [ 75 Anterior Bilateral Throughout] Respiratory 20 Rate Respiratory 18 Rate [Anterior Bilateral Throughout] Blood Pressure 152/43 Blood Pressure [Left] O2 Sat by Pulse 91 98 Oximetry - Lab 08/04/20 12:06 08/04/20 12:06 Most recent lab results ABG pH 7.316 pH Units (7.350-7.450) L 07/29/20 12:55 ABG pCO2 48.6 mm Hg 07/29/20 12:55 ABG pO2 131.0 mm Hg (80.0-90.0) H 07/29/20 12:55 ABG HCO3 24.3 mmol/L (20.0-26.0) 07/29/20 12:55 ABG O2 Saturation 98.3 % (95.0-99.0) 07/29/20 12:55 Calcium 7.8 mg/dL (8.4-10.2) L 08/04/20 12:06 Medications & Allergies - Medications Allergies/Adverse Reactions: Allergies No Known Allergies Allergy (Verified 05/01/15 08:52) Home Medications: Home Medications Medication Instructions Recorded Confirmed Last Taken Type Calcium Acetate [Phoslo] 667 mg PO TID 07/24/20 07/24/20 Unknown History Fenofibrate 160 mg PO QDAY 07/24/20 07/24/20 Unknown History Gabapentin [Neurontin] 100 mg PO Q8HR 07/24/20 07/24/20 Unknown History HYDROcodone/ACETAMINOPHEN 1 each PO Q8HR PRN 07/24/20 07/24/20 Unknown History [Hydrocodone-Acetamin 5-300 mg] Losartan Potassium 100 mg PO QDAY 07/24/20 07/24/20 Unknown History Montelukast [Singulair] 10 mg PO QPM 07/24/20 07/24/20 Unknown History Sevelamer Carbonate [Renvela] 800 mg PO TIDWM 07/24/20 07/24/20 Unknown History Simvastatin 40 mg PO QDAY 07/24/20 07/24/20 Unknown History allopurinoL [Zyloprim] 100 mg PO QDAY 07/24/20 07/24/20 Unknown History traZODone [Desyrel] 50 mg PO QHS 07/24/20 07/24/20 Unknown History traZODone [Desyrel] 50 mg PO QHS 07/24/20 07/24/20 Unknown History Active Medications: Generic Name Dose Route Start Last Admin Trade Name Freq PRN Reason Stop Dose Admin Acetaminophen 650 mg 07/24/20 12:34 Acetaminophen 325 Mg Tab PO Q4H PRN Pain MILD(1-3)/Fever >100.5/ANDRADE Acetaminophen 650 mg 07/31/20 13:52 07/31/20 16:11 Acetaminophen 650 Mg Rect Supp IN 650 mg Q4H PRN Administration Fever >101 Albuterol 2.5 mg 07/24/20 12:30 Albuterol 2.5 Mg/3 Ml Nebu IH Q4HRT PRN Shortness Of Breath Albuterol/Ipratropium 1 ampul 07/29/20 11:00 08/04/20 20:25 Ipratropium/Albuterol Sulfate 3 Ml Ampul.Neb IH 1 ampul TIDRT SADAF Administration Allopurinol 100 mg 07/25/20 10:00 08/04/20 10:31 Allopurinol 100 Mg Tab PO 100 mg QDAY SADAF Administration Aspirin 81 mg 07/30/20 16:00 08/04/20 10:31 Aspirin Ec 81 Mg Tab PO 81 mg QDAY SADAF Administration Calcium Acetate 667 mg 07/24/20 17:00 08/04/20 17:46 Calcium Acetate 667 Mg Cap PO 667 mg TIDWM SADAF Administration Carvedilol 6.25 mg 07/24/20 22:00 08/04/20 10:32 Carvedilol 6.25 Mg Tab PO 6.25 mg BID SADAF Administration Clopidogrel Bisulfate 75 mg 07/31/20 10:00 08/04/20 10:32 Clopidogrel 75 Mg Tab PO 75 mg QDAY SADAF Administration Dextrose 50 ml 07/31/20 08:37 08/04/20 07:56 Dextrose 50% In Water (25gm) 50 Ml Syringe IV 20 ml Q30MIN PRN Administration Hypoglycemia Protocol Doxazosin Mesylate 4 mg 07/26/20 10:00 08/04/20 10:31 Doxazosin 4 Mg Tab PO 4 mg DAILY SADAF Administration Epoetin Jose 20,000 unit 07/26/20 10:00 08/02/20 12:24 Epoetin Jose 20,000 Unit/1 Ml Inj SUB-Q Not Given Th [facility] Fenofibrate 145 mg 07/25/20 10:00 08/04/20 10:31 Fenofibrate 145 Mg Tab PO 145 mg DAILY SADAF Administration Ferrous Sulfate 325 mg 07/24/20 22:00 08/04/20 10:31 Ferrous Sulfate 325 Mg Tab PO 325 mg BID SADAF Administration Fish Oil 1,000 mg 07/25/20 10:00 08/04/20 10:31 [place]-3 Fatty Acids/Fish Oil 1 Gram Cap PO 1,000 mg DAILY SADAF Administration Hydralazine HCl 50 mg 07/28/20 22:00 08/04/20 14:35 Hydralazine 25 Mg Tab PO Not Given Q8HR [facility] Hydralazine HCl 10 mg 07/28/20 16:22 08/02/20 08:46 Hydralazine 20 Mg/1 Ml Inj IV 10 mg Q6H PRN Administration Blood Pressure Dextrose 1,000 mls @ 75 mls/hr 07/31/20 12:00 08/04/20 04:58 D10w IV 75 mls/hr DIRECT SADAF Administration Sodium Chloride 100 mls @ 999 mls/hr 08/01/20 09:55 Nacl 0.9% IV PETTY PRN Hypotension Losartan Potassium 100 mg 07/25/20 10:00 08/04/20 10:31 Losartan 50 Mg Tab PO 100 mg QDAY SADAF Administration Montelukast Sodium 10 mg 07/24/20 18:00 08/04/20 17:55 Montelukast 10 Mg Tab PO 10 mg QPM SADAF Administration Multivit/Ca Carb/B Cmplx/FA/Prenat 1 cap 07/26/20 10:00 08/04/20 10:31 Folic Acid/Vit B Comp W-C 1 Mg (Renal Caps) PO 1 cap QDAY SADAF Administration Multivitamins/Minerals 1 each 07/25/20 10:00 08/04/20 10:32 Multivitamins,Ther W-Minerals Tab PO 1 each QDAY SADAF Administration Ondansetron HCl 4 mg 07/24/20 12:00 Ondansetron 4 Mg/2 Ml Inj IV Q8H PRN Nausea And Vomiting Pravastatin Sodium 80 mg 07/24/20 22:00 08/03/20 22:50 Pravastatin 80 Mg Tab PO 80 mg QHS SADAF Administration Sevelamer Carbonate 800 mg 07/24/20 17:00 08/04/20 17:46 Sevelamer Carbonate 800 Mg Tab PO 800 mg TIDWM SADAF Administration Sodium Chloride 10 ml 07/24/20 12:30 08/04/20 10:32 Sodium Chloride 0.9% 10 Ml Flush Syringe IV 10 ml BID SADAF Administration Sodium Chloride 10 ml 07/24/20 12:30 07/24/20 12:39 Sodium Chloride 0.9% 10 Ml Flush Syringe IV 10 ml PRN PRN Administration LINE FLUSH Trazodone HCl 50 mg 07/24/20 22:00 08/03/20 22:50 Trazodone 50 Mg Tab PO 50 mg QHS SADAF Administration
[2020-08-04] MEDS: PRAVASTATIN 80 MG TAB PO SCH (21:31)
[2020-08-04] MEDS: traZODone 50 MG TAB PO SCH (21:32)
[2020-08-05] MEDS ORDERED: DEXTROSE/DEXTRIN/MALTOSE 24 GM CARB PER 31 GM TUBE PO PRN (00:34)
[2020-08-05] MEDS: DEXTROSE 50% IN WATER (25GM) 50 ML SYRINGE IV PRN (00:55)
[2020-08-05] MEDS: hydrALAZINE 25 MG TAB PO SCH ×4 (06:07→21:46)
[2020-08-05] MEDS: IPRATROPIUM/ALBUTEROL SULFATE 3 ML AMPUL.NEB IH SCH (08:05)
[2020-08-05] MEDS: DEXTROSE 10% IN WATER 1,000 ML IV SCH ×2 (08:34→21:44)
[2020-08-05] MEDS: SEVELAMER CARBONATE 800 MG TAB PO SCH ×2 (09:04→14:28)
[2020-08-05] MEDS: carvediloL 6.25 MG TAB PO SCH ×2 (09:04→21:45)
[2020-08-05] MEDS: CALCIUM ACETATE 667 MG CAP PO SCH ×2 (09:04→14:28)
[2020-08-05] MEDS: FERROUS SULFATE 325 MG TAB PO SCH ×2 (09:04→21:44)
[2020-08-05] MEDS: MULTIVITAMINS,THER W-MINERALS TAB PO SCH (09:04)
[2020-08-05] MEDS: CLOPIDOGREL 75 MG TAB PO SCH (09:05)
[2020-08-05] MEDS: DOXAZOSIN 4 MG TAB PO SCH (09:05)
[2020-08-05] MEDS: FOLIC ACID/VIT B COMP W-C 1 MG (RENAL CAPS) PO SCH (09:05)
[2020-08-05] MEDS: FENOFIBRATE 145 MG TAB PO SCH (09:05)
[2020-08-05] MEDS: ASPIRIN EC 81 MG TAB PO SCH (09:06)
[2020-08-05] MEDS: LOSARTAN 50 MG TAB PO SCH (09:06)
[2020-08-05] MEDS: OMEGA-3 FATTY ACIDS/FISH OIL 1 GRAM CAP PO SCH (10:29)
[2020-08-05] MEDS: allopurinoL 100 MG TAB PO SCH (10:29)
[2020-08-05] MEDS ORDERED: traZODone 50 MG TAB PO SCH (10:44)
[2020-08-05 10:46] LABS: Basophils # (Auto) 0.1 K/mm3 (0.0-0.1); Basophils % (Auto) 0.9 % (0.0-1.8); Eosinophils # (Auto) 0.2 K/mm3 (0.0-0.4); Eosinophils % (Auto) 2.5 % (0.0-4.3); Hematocrit 24.3 % (35.5-45.6); Lymphocytes % (Auto) 11.3 % (13.4-35.0); Mean Corpuscular HGB Conc 33 % (32-34); Mean Corpuscular Volume 95 fl (84-94); Monocytes # (Auto) 0.7 K/mm3 (0.0-0.8); Monocytes % (Auto) 7.7 % (0.0-7.3); Platelet Count 142 K/mm3 (140-440); Red Blood Count 2.54 M/mm3 (3.65-5.03); Red Cell Distribution Width 15.3 % (13.2-15.2)
--- NOTE | 2020-08-05 10:46 | Progress Note ---
Assessment and Plan Assessment and plan: # Sepsis Secondary to lower extremity cellulitis Completed antibiotics ID recommendations appreciated #Peripheral vascular disease with gangrene of the left first and second toe Now status post angiography with angioplasty of the distal femoral vessels Continue aspirin and Plavix Vascular surgery following Plan for vascularization of LE vessels on 08/06. 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 Sons number is Timmy Beckman #DVT prophylaxis SCD to bilateral lower extremities while in bed, prophylactic anticoagulation. History Interval history: 80 YO Male with ESRD on HD (M, W, F), HTN, DM, Vascular Dementia, Cerebral Atherosclerosis presents to ED for evaluation. Patient is confused and unable to provide detailed history at time of exam. Patient caregiver is at bedside during exam and interview and provides history. As per the patient's the patient has experienced increased weakness and confusion over the past 1 month with increased bedbound status. Patient was seen and evaluated by his vascular surgeon today and was found to have left foot cellulitis. Patient was instructed to seek further care at [facility]. Patient transported to [facility] via private vehicle for further care and evaluation of the aforementioned symptoms. The patient was seen and evaluated in the emergency department. All lab and imaging studies reviewed. Patient found to have end-stage renal disease, left foot cellulitis complicated by systemic inflammatory response syndrome, as well as peripheral vascular disease. Patient admitted to medical floor and initiated on IV antibiotic therapy. Nephrology team consulted in ED. Vascular surgery team consulted in ED. No further history is obtainable. No reports of fever, chills, chest pain, palpitation, productive cough, skin rash, syncope, trauma, recent ill contacts, or known exposure to COVID-19. Patient is unable to provide history but has a positive gag reflex and is able to protect his airway without difficulty at the time my evaluation. Prior admission on 07/05/2019 reviewed. All medication listed at time of admission has been reconciled. Advanced care planning conducted in ED. CT: Head: Negative for acute pathology. 07/25: Discussed with the IR, patient with new onset Altered mental status from the last time they saw the patient. Will begin work-up for possible underlying sepsis etiology or source unknown at this time. Will obtain ID consulted and Neurology. Continue abx, attempted to reach family. Concern for stroke is low but considering hx of vasculopathy will obtain Neurology Will also obtain wound consultation. 07/26: Some improvement noted with initiation of antibiotics. We will continue current management patient continues on hemodialysis. Will await further vascular improvement as patient is beginning to show some improvement. Discussed with case management. Apparently the person that came with the patient is not the patient's but a caregiver H&P portion of this note has been corrected. Continue wound care and every 2 hours turns. 07/27: Continue current management plan. Vascular to re-evaluate. Continue abx. MRI with no acute pathology. Agree with the D5 as patient still has some intermittent confusion. Continue to monitor. Speech evaluation for swallow management. 07/28: Patient clinically stable, continue supportive care, abx, awaiting full vascular input. cONTINUE D5 for now. 07/29: We will give patient dose of Lasix, get a chest x-ray. Discussed with nursing staff could be that the patient was appear hypoxic due to cold extremities. Will obtain an ABG. We will also obtain a pulmonary consult for clearance for anticipated vascular procedure in a.m. 07/30: Noted hypoglycemia this morning we will give D50 and amp. Patient is for procedure today. Discussed with vascular. Per discussion with nursing saturation has improved. Pulmonary input is noted. He was admitted for digital gangrene on multiple digits both fingers and toes. Was also noted to be septic requiring treatment which has led to improvement in his mental status. 07/31. Now status post angiography and angioplasty of distal femoral arteries. Now on antiplatelets. He has been having episodes of hypoglycemia. Started him on D10 water. Continue to monitor closely for now. CT head ordered to rule out any CVA though not likely. Vascular surgery following. 08/01. Patient remains lethargic. Discontinued pain medications and gabapentin. On IV antibiotics. Started on D10 water yesterday for hypoglycemia. If lethargy does not improve, will place an NG tube. CT head negative for any stroke. 08/02. More responsive today. Still gets agitated and pulling on his IV lines so was placed on restraints. Needs to have a repeat swallow evaluation. Blood glucose is table. 08/03. Responsive today. Alert and oriented x2. Will get vascular to reevaluate. Needs to have revascularization of LE vessels as per vascular. Passed swallow evaluation yesterday and has been started on a diet. 08/04. Plan for vascularization of the extremities as per vascular. 08/05. No complaints today. Plan for revascularization tomorrow. NPO after midnight Hospitalist Physical - Physical exam Narrative exam: VITAL SIGNS: Reviewed. GENERAL: Awake HEAD: No signs of head trauma. EYES: Pupils are equal. Extraocular motions intact. MOUTH: Oropharynx is normal. NECK: No adenopathy, no JVD. CHEST: Chest with diminished breath sounds bilaterally. No wheezes, rales, or rhonchi. CARDIAC: normal S1 and S2, without murmurs, gallops, or rubs. ABDOMEN: Soft, non tender and non distended. No rebound or guarding, and no masses palpated. Bowel Sounds normal. MUSCULOSKELETAL: LLE: Gangrenous looking big toe, proximal area of the leg feels warm to touch. NEUROLOGIC EXAM: Awake and alert today SKIN: No obvious lesions - Constitutional Vitals: Temp Pulse Resp BP Pulse Ox 98.8 F 75 15 145/42 97 08/05/20 07:31 08/05/20 09:05 08/05/20 07:31 08/05/20 07:31 08/05/20 08:21 Results - Labs CBC & Chem 7: 08/04/20 12:06 08/04/20 12:06 Labs: Laboratory Last Values WBC 7.9 K/mm3 (4.5-11.0) 08/04/20 12:06 RBC 2.63 M/mm3 (3.65-5.03) L 08/04/20 12:06 Hgb 8.4 gm/dl (11.8-15.2) L 08/04/20 12:06 Hct 25.4 % (35.5-45.6) L 08/04/20 12:06 MCV 97 fl (84-94) H 08/04/20 12:06 MCH 32 pg (28-32) 08/04/20 12:06 MCHC 33 % (32-34) 08/04/20 12:06 RDW 15.0 % (13.2-15.2) 08/04/20 12:06 Plt Count 146 K/mm3 (140-440) 08/04/20 12:06 Lymph % (Auto) 7.6 % (13.4-35.0) L 08/04/20 12:06 [place] % (Auto) 5.7 % (0.0-7.3) 08/04/20 12:06 Eos % (Auto) 3.1 % (0.0-4.3) 08/04/20 12:06 Baso % (Auto) 1.8 % (0.0-1.8) 08/04/20 12:06 Lymph # (Auto) 0.6 K/mm3 (1.2-5.4) L 08/04/20 12:06 [place] # (Auto) 0.5 K/mm3 (0.0-0.8) 08/04/20 12:06 Eos # (Auto) 0.3 K/mm3 (0.0-0.4) 08/04/20 12:06 Baso # (Auto) 0.1 K/mm3 (0.0-0.1) 08/04/20 12:06 Seg Neutrophils % 81.8 % (40.0-70.0) H 08/04/20 12:06 Seg Neutrophils # 6.6 K/mm3 (1.8-7.7) 08/04/20 12:06 PT 13.5 Sec. (12.2-14.9) 07/24/20 08:40 INR 1.04 (0.87-1.13) 07/24/20 08:40 APTT 45.0 Sec. (24.2-36.6) H 07/24/20 08:40 ABG pH 7.316 pH Units (7.350-7.450) L 07/29/20 12:55 ABG pCO2 48.6 mm Hg 07/29/20 12:55 ABG pO2 131.0 mm Hg (80.0-90.0) H 07/29/20 12:55 ABG HCO3 24.3 mmol/L (20.0-26.0) 07/29/20 12:55 ABG O2 Saturation 98.3 % (95.0-99.0) 07/29/20 12:55 ABG O2 Content 13.1 (0.0-44) 07/29/20 12:55 ABG Base Excess -2.0 mmol/L (-2.0-3.0) 07/29/20 12:55 ABG Hemoglobin 9.4 gm/dl (14.0-18.0) L 07/29/20 12:55 ABG Carboxyhemoglobin 1.1 % (0.0-5.0) 07/29/20 12:55 ABG Methemoglobin 0.6 % (0.0-1.5) 07/29/20 12:55 Oxyhemoglobin 96.7 % (95.0-99.0) 07/29/20 12:55 FiO2 32 % 07/29/20 12:55 Sodium 132 mmol/L (137-145) L 08/04/20 12:06 Potassium 4.4 mmol/L (3.6-5.0) 08/04/20 12:06 Chloride 96.8 mmol/L (98-107) L 08/04/20 12:06 Carbon Dioxide 25 mmol/L (22-30) 08/04/20 12:06 Anion Gap 15 mmol/L 08/04/20 12:06 BUN 18 mg/dL (9-20) 08/04/20 12:06 Creatinine 4.0 mg/dL (0.8-1.3) H 08/04/20 12:06 Estimated GFR 15 ml/min 08/04/20 12:06 BUN/Creatinine Ratio 5 % 08/04/20 12:06 Glucose 131 mg/dL (75-100) H 08/04/20 12:06 POC Glucose 88 mg/dL (70-105) 08/05/20 07:24 Lactic Acid 0.90 mmol/L (0.7-2.0) 07/24/20 10:20 Calcium 7.8 mg/dL (8.4-10.2) L 08/04/20 12:06 Ionized Calcium 5.1 mg/dL (4.8-5.6) 07/30/20 09:03 Total Bilirubin 0.30 mg/dL (0.1-1.2) 08/04/20 12:06 AST 36 units/L (5-40) 08/04/20 12:06 ALT 24 units/L (7-56) 08/04/20 12:06 Alkaline Phosphatase 61 units/L (35-129) 08/04/20 12:06 Total Protein 5.3 g/dL (6.3-8.2) L 08/04/20 12:06 Albumin 2.2 g/dL (3.9-5) L 08/04/20 12:06 Albumin/Globulin Ratio 0.7 % 08/04/20 12:06 Prealbumin 0.116 g/L (0.200-0.400) L 07/27/20 16:25 Vitamin B1 17 nmol/L (8-30) 07/27/20 16:25 Vitamin B12 980.0 pg/mL (211-911) H 07/27/20 16:25 Folate 12.73 ng/mL (7.3-26.0) 07/27/20 16:25 Nasal Screen MRSA (PCR) Negative (Negative) 07/24/20 Unknown Random Vancomycin 20.7 ug/mL (0-40.0) 08/01/20 05:16 Copper 113 mcg/dL (70-175) 07/27/20 16:25 Coronavirus (PCR) Negative (Negative) 08/04/20 Unknown Hepatitis A IgM Ab Non-reactive (NonReactive) 07/25/20 15:30 Hep Bs Antigen Non-reactive (Negative) 07/25/20 15:30 Hep B Core IgM Ab Non-reactive (NonReactive) 07/25/20 15:30 Hepatitis C Antibody Non-reactive (NonReactive) 07/25/20 15:30 [place]/IV: Voiding Method Diaper Active Medications - Current Medications Current Medications: Generic Name Dose Route Start Last Admin Trade Name Freq PRN Reason Stop Dose Admin Acetaminophen 650 mg 07/24/20 12:34 Acetaminophen 325 Mg Tab PO Q4H PRN Pain MILD(1-3)/Fever >100.5/ANDRADE Acetaminophen 650 mg 07/31/20 13:52 07/31/20 16:11 Acetaminophen 650 Mg Rect Supp [place] 650 mg Q4H PRN Administration Fever >101 Albuterol 2.5 mg 07/24/20 12:30 Albuterol 2.5 Mg/3 Ml Nebu IH Q4HRT PRN Shortness Of Breath Allopurinol 100 mg 07/25/20 10:00 08/04/20 10:31 Allopurinol 100 Mg Tab PO 100 mg QDAY SADAF Administration Aspirin 81 mg 07/30/20 16:00 08/05/20 09:06 Aspirin Ec 81 Mg Tab PO 81 mg QDAY SADAF Administration Calcium Acetate 667 mg 07/24/20 17:00 08/05/20 09:04 Calcium Acetate 667 Mg Cap PO 667 mg TIDWM SADAF Administration Carvedilol 6.25 mg 07/24/20 22:00 08/05/20 09:04 Carvedilol 6.25 Mg Tab PO 6.25 mg BID SADAF Administration Clopidogrel Bisulfate 75 mg 07/31/20 10:00 08/05/20 09:05 Clopidogrel 75 Mg Tab PO 75 mg QDAY SADAF Administration Dextrose 50 ml 07/31/20 08:37 08/05/20 00:55 Dextrose 50% In Water (25gm) 50 Ml Syringe IV 15 ml Q30MIN PRN Administration Hypoglycemia Protocol Doxazosin Mesylate 4 mg 07/26/20 10:00 08/05/20 09:05 Doxazosin 4 Mg Tab PO 4 mg DAILY SADAF Administration Epoetin Jose 20,000 unit 07/26/20 10:00 08/02/20 12:24 Epoetin Jose 20,000 Unit/1 Ml Inj SUB-Q Not Given Th [facility] Fenofibrate 145 mg 07/25/20 10:00 08/05/20 09:05 Fenofibrate 145 Mg Tab PO 145 mg DAILY SADAF Administration Ferrous Sulfate 325 mg 07/24/20 22:00 08/05/20 09:04 Ferrous Sulfate 325 Mg Tab PO 325 mg BID SADAF Administration Fish Oil 1,000 mg 07/25/20 10:00 08/04/20 10:31 [place]-3 Fatty Acids/Fish Oil 1 Gram Cap PO 1,000 mg DAILY SADAF Administration Hydralazine HCl 50 mg 07/28/20 22:00 08/05/20 06:07 Hydralazine 25 Mg Tab PO 50 mg Q8HR SADAF Administration Hydralazine HCl 10 mg 07/28/20 16:22 08/02/20 08:46 Hydralazine 20 Mg/1 Ml Inj IV 10 mg Q6H PRN Administration Blood Pressure Dextrose 1,000 mls @ 75 mls/hr 07/31/20 12:00 08/05/20 08:34 D10w IV 75 mls/hr DIRECT SADAF Administration Sodium Chloride 100 mls @ 999 mls/hr 08/01/20 09:55 Nacl 0.9% IV PETTY PRN Hypotension Losartan Potassium 100 mg 07/25/20 10:00 08/05/20 09:06 Losartan 50 Mg Tab PO 100 mg QDAY SADAF Administration Montelukast Sodium 10 mg 07/24/20 18:00 08/04/20 17:55 Montelukast 10 Mg Tab PO 10 mg QPM SADAF Administration Multivit/Ca Carb/B Cmplx/FA/Prenat 1 cap 07/26/20 10:00 08/05/20 09:05 Folic Acid/Vit B Comp W-C 1 Mg (Renal Caps) PO 1 cap QDAY SADAF Administration Multivitamins/Minerals 1 each 07/25/20 10:00 08/05/20 09:04 Multivitamins,Ther W-Minerals Tab PO 1 each QDAY SADAF Administration Ondansetron HCl 4 mg 07/24/20 12:00 Ondansetron 4 Mg/2 Ml Inj IV Q8H PRN Nausea And Vomiting Pravastatin Sodium 80 mg 07/24/20 22:00 08/04/20 21:31 Pravastatin 80 Mg Tab PO 80 mg QHS SADAF Administration Sevelamer Carbonate 800 mg 07/24/20 17:00 08/05/20 09:04 Sevelamer Carbonate 800 Mg Tab PO 800 mg TIDWM SADAF Administration Sodium Chloride 10 ml 07/24/20 12:30 08/04/20 10:32 Sodium Chloride 0.9% 10 Ml Flush Syringe IV 10 ml BID SADAF Administration Sodium Chloride 10 ml 07/24/20 12:30 07/24/20 12:39 Sodium Chloride 0.9% 10 Ml Flush Syringe IV 10 ml PRN PRN Administration LINE FLUSH Trazodone HCl 50 mg 07/24/20 22:00 08/04/20 21:32 Trazodone 50 Mg Tab PO 50 mg QHS SADAF Administration Nutrition/Malnutrition Assess - Dietary Evaluation Nutrition/Malnutrition Findings: Nutrition Notes Start: 07/25/20 13:43 Freq: Status: Active Protocol: Document 08/03/20 08:38 AT (Rec: 08/03/20 08:51 AT [id number]) Co-Sign 08/03/20 08:38 MK Nutrition Notes Initial or Follow up Reassessment Current Diagnosis CKD (stage V CKD),Decubitus( Pressure Ulcer),Diabetes, Sepsis,Hypertension,Stroke, Hyperlipidemia Other Pertinent Diagnosis on HD, Cellulitis, Gangrene, Cerebral Atherosclerosis, Peripheral Vascular Current Diet Mechanical Soft Diet Labs/Tests POC BG 223 No new labs Pertinent Medications D10W at 75 mL/hr Renvela Phoslo Ferrous Sulfate Fish Oil MVI Height 5 ft 9 in Weight 71.8 kg [place] Body Weight (kg) 72.72 BMI 23.3 Weight Status Appropriate Subjective/Other Information Follow up for POC. 08/02 CHIEF OF VITAL STATISTICS recommended upgrading diet to mechanical soft with chopped meats, and thin liquids. Pt is off the floor for HD at time of visit. Percent of energy/protein needs met: 0%/0% Burn Absent Trauma Absent Difficulty In Swallowing Skin Integrity/Comment Diabetic Ulcer Current % PO Negligible Minimum of two criteria No Reduced Medical Transcription Strength Measurably Reduced (severe) #3 Nutrition Diagnosis Inadequate energy intake Diagnosis Progress(for reassessment Continues documentation) #2 Nutrition Diagnosis Increased nutrient needs ( specify in comment below) Comments: protein Diagnosis Progress(for reassessment Continues documentation) Is patient on ventilator? No Is Patient Ambulatory and/or Out of Bed No REE-([facility]-confined to bed) 1720.680 Calculation Used for Recommendations [facility] Additional Notes PRO needs: >86 g(>1.2 g/kg) Fluid needs: Urine output + 1000 mL or per MD Nutrition Intervention Change Diet Order: Continue Mechanical Soft Diet with chopped meat and thin liquids per CHIEF OF VITAL STATISTICS Add Supplement/Snack (indicate name/kcal Nepro daily /protein ) Provides kCal: 425 Provides Protein (gm) 19 Goal #1 Meet at least 75% of estimated energy and protein needs via diet and ONS Goal #2 Wound healing Anticipated Discharge Needs: Mechanical Soft Renal/ Consistent CHO Follow-Up By: 08/07/20 Additional Comments F/U for stable intakes, ONS tolerance
[2020-08-05 11:00] LABS: Albumin 2.1 g/dL (3.9-5)
--- NOTE | 2020-08-05 20:13 | Progress Note ---
Assessment and Plan Assessment and plan #End-stage renal disease: Continue MWF #dialysis access is a central venous catheter. Site c/d/i #Continue antihypertensives #Continue epogen weekly #Keep MAP>65 #Diet and nutrition: Patient needs to be on high protein diet - 1.2-1.4 g/kg/d #Volume and electrolyte Stable at this time #Bone mineral disorder: Monitor phosphorus and PTH level periodically, outpatient labs satisfactory #Multiple other complex comorbidities currently being managed by primary team #peripheral arterial disease/gangrene, vascular note reviewed. Plan for revascularization on Thursday. #Acute encephalopathy - improving, pain medications discontinued. CT head negative for stroke. Management per primary. Will continue to follow and make recommendation for renal standpoint Subjective Date of service: 08/05/20 Principal diagnosis: Peripheral vascular disease with gangrene Interval history: More alert today Patient was seen for his renal issues Nursing, interdisciplinary and consult notes were reviewed Vitals, input and output, medications and labs were reviewed Objective - Exam Narrative Exam: General: No acute distress HEENT: Oral mucosa moist Neck: Supple, no JVD Chest: Clear to auscultation bilaterally Heart: RRR, S1 and S2, no pericardial rub Abdomen: Soft, nontender, no renal bruit Extremity: No peripheral cyanosis, edema. LE dressing noted. Neurological: Awake and alert Dermatology: No skin rash Psych: Calm and cooperative Musculoskeletal: No joint effusion - Vital Signs Vital signs: Vital Signs - 12hr 08/05/20 08/05/20 08/05/20 08:21 09:04 09:05 Temperature Pulse Rate 75 75 Respiratory Rate Blood Pressure O2 Sat by Pulse 97 Oximetry 08/05/20 08/05/20 08/05/20 11:18 15:51 16:00 Temperature 98.2 F 98.2 F Pulse Rate 72 69 88 Respiratory 15 15 Rate Blood Pressure 147/45 152/59 O2 Sat by Pulse 96 97 Oximetry 08/05/20 16:06 Temperature Pulse Rate Respiratory 26 H Rate Blood Pressure O2 Sat by Pulse 95 Oximetry - Lab 08/05/20 09:34 08/05/20 09:34 Most recent lab results ABG pH 7.316 pH Units (7.350-7.450) L 07/29/20 12:55 ABG pCO2 48.6 mm Hg 07/29/20 12:55 ABG pO2 131.0 mm Hg (80.0-90.0) H 07/29/20 12:55 ABG HCO3 24.3 mmol/L (20.0-26.0) 07/29/20 12:55 ABG O2 Saturation 98.3 % (95.0-99.0) 07/29/20 12:55 Calcium 8.0 mg/dL (8.4-10.2) L 08/05/20 09:34 Medications & Allergies - Medications Allergies/Adverse Reactions: Allergies No Known Allergies Allergy (Verified 05/01/15 08:52) Home Medications: Home Medications Medication Instructions Recorded Confirmed Last Taken Type Calcium Acetate [Phoslo] 667 mg PO TID 07/24/20 07/24/20 Unknown History Fenofibrate 160 mg PO QDAY 07/24/20 07/24/20 Unknown History Gabapentin [Neurontin] 100 mg PO Q8HR 07/24/20 07/24/20 Unknown History HYDROcodone/ACETAMINOPHEN 1 each PO Q8HR PRN 07/24/20 07/24/20 Unknown History [Hydrocodone-Acetamin 5-300 mg] Losartan Potassium 100 mg PO QDAY 07/24/20 07/24/20 Unknown History Montelukast [Singulair] 10 mg PO QPM 07/24/20 07/24/20 Unknown History Sevelamer Carbonate [Renvela] 800 mg PO TIDWM 07/24/20 07/24/20 Unknown History Simvastatin 40 mg PO QDAY 07/24/20 07/24/20 Unknown History allopurinoL [Zyloprim] 100 mg PO QDAY 07/24/20 07/24/20 Unknown History traZODone [Desyrel] 50 mg PO QHS 07/24/20 07/24/20 Unknown History traZODone [Desyrel] 50 mg PO QHS 07/24/20 07/24/20 Unknown History Active Medications: Generic Name Dose Route Start Last Admin Trade Name Freq PRN Reason Stop Dose Admin Acetaminophen 650 mg 07/24/20 12:34 Acetaminophen 325 Mg Tab PO Q4H PRN Pain MILD(1-3)/Fever >100.5/ANDRADE Acetaminophen 650 mg 07/31/20 13:52 07/31/20 16:11 Acetaminophen [address] 650 mg Q4H PRN Administration Fever >101 Albuterol 2.5 mg 07/24/20 12:30 Albuterol 2.5 Mg/3 Ml Nebu IH Q4HRT PRN Shortness Of Breath Allopurinol 100 mg 07/25/20 10:00 08/05/20 10:29 Allopurinol 100 Mg Tab PO 100 mg QDAY SADAF Administration Aspirin 81 mg 07/30/20 16:00 08/05/20 09:06 Aspirin Ec 81 Mg Tab PO 81 mg QDAY SADAF Administration Calcium Acetate 667 mg 07/24/20 17:00 08/05/20 14:28 Calcium Acetate 667 Mg Cap PO 667 mg TIDWM SADAF Administration Carvedilol 6.25 mg 07/24/20 22:00 08/05/20 09:04 Carvedilol 6.25 Mg Tab PO 6.25 mg BID SADAF Administration Clopidogrel Bisulfate 75 mg 07/31/20 10:00 08/05/20 09:05 Clopidogrel 75 Mg Tab PO 75 mg QDAY SADAF Administration Dextrose 50 ml 07/31/20 08:37 08/05/20 00:55 Dextrose 50% In Water (25gm) 50 Ml Syringe IV 15 ml Q30MIN PRN Administration Hypoglycemia Protocol Doxazosin Mesylate 4 mg 07/26/20 10:00 08/05/20 09:05 Doxazosin 4 Mg Tab PO 4 mg DAILY SADAF Administration Epoetin Jose 20,000 unit 07/26/20 10:00 08/02/20 12:24 Epoetin Jose 20,000 Unit/1 Ml Inj SUB-Q Not Given Th [facility] Fenofibrate 145 mg 07/25/20 10:00 08/05/20 09:05 Fenofibrate 145 Mg Tab PO 145 mg DAILY SADAF Administration Ferrous Sulfate 325 mg 07/24/20 22:00 08/05/20 09:04 Ferrous Sulfate 325 Mg Tab PO 325 mg BID SADAF Administration Fish Oil 1,000 mg 07/25/20 10:00 08/05/20 10:29 [place]-3 Fatty Acids/Fish Oil 1 Gram Cap PO 1,000 mg DAILY SADAF Administration Hydralazine HCl 50 mg 07/28/20 22:00 08/05/20 14:28 Hydralazine 25 Mg Tab PO 50 mg Q8HR SADAF Administration Hydralazine HCl 10 mg 07/28/20 16:22 08/02/20 08:46 Hydralazine 20 Mg/1 Ml Inj IV 10 mg Q6H PRN Administration Blood Pressure Dextrose 1,000 mls @ 75 mls/hr 07/31/20 12:00 08/05/20 08:34 D10w IV 75 mls/hr DIRECT SADAF Administration Sodium Chloride 100 mls @ 999 mls/hr 08/01/20 09:55 Nacl 0.9% IV PETTY PRN Hypotension Losartan Potassium 100 mg 07/25/20 10:00 08/05/20 09:06 Losartan 50 Mg Tab PO 100 mg QDAY SADAF Administration Montelukast Sodium 10 mg 07/24/20 18:00 08/04/20 17:55 Montelukast 10 Mg Tab PO 10 mg QPM SADAF Administration Multivit/Ca Carb/B Cmplx/FA/Prenat 1 cap 07/26/20 10:00 08/05/20 09:05 Folic Acid/Vit B Comp W-C 1 Mg (Renal Caps) PO 1 cap QDAY SADAF Administration Multivitamins/Minerals 1 each 07/25/20 10:00 08/05/20 09:04 Multivitamins,Ther W-Minerals Tab PO 1 each QDAY SADAF Administration Ondansetron HCl 4 mg 07/24/20 12:00 Ondansetron 4 Mg/2 Ml Inj IV Q8H PRN Nausea And Vomiting Pravastatin Sodium 80 mg 07/24/20 22:00 08/04/20 21:31 Pravastatin 80 Mg Tab PO 80 mg QHS SADAF Administration Sevelamer Carbonate 800 mg 07/24/20 17:00 08/05/20 14:28 Sevelamer Carbonate 800 Mg Tab PO 800 mg TIDWM SADAF Administration Sodium Chloride 10 ml 07/24/20 12:30 08/04/20 10:32 Sodium Chloride 0.9% 10 Ml Flush Syringe IV 10 ml BID SADAF Administration Sodium Chloride 10 ml 07/24/20 12:30 07/24/20 12:39 Sodium Chloride 0.9% 10 Ml Flush Syringe IV 10 ml PRN PRN Administration LINE FLUSH
[2020-08-05] MEDS: PRAVASTATIN 80 MG TAB PO SCH (21:44)
[2020-08-06 05:47] LABS: Albumin 1.9 g/dL (3.9-5); Calcium 7.9 mg/dL (8.4-10.2)
[2020-08-06 05:55] LABS: INR 1.08 (0.87-1.13)
[2020-08-06] MEDS: hydrALAZINE 25 MG TAB PO SCH ×3 (06:36→22:39)
[2020-08-06 06:42] LABS: Basophils # (Auto) 0.1 K/mm3 (0.0-0.1); Basophils % (Auto) 0.8 % (0.0-1.8); Eosinophils # (Auto) 0.1 K/mm3 (0.0-0.4); Eosinophils % (Auto) 1.4 % (0.0-4.3); Hematocrit 24.5 % (35.5-45.6); Hemoglobin 8.1 gm/dl (11.8-15.2); Lymphocytes # (Auto) 1.1 K/mm3 (1.2-5.4); Lymphocytes % (Auto) 10.9 % (13.4-35.0); Mean Corpuscular HGB Conc 33 % (32-34); Mean Corpuscular Volume 96 fl (84-94); Monocytes # (Auto) 0.8 K/mm3 (0.0-0.8); Monocytes % (Auto) 7.9 % (0.0-7.3); Platelet Count 129 K/mm3 (140-440); Red Blood Count 2.55 M/mm3 (3.65-5.03); Red Cell Distribution Width 15.4 % (13.2-15.2)
--- NOTE | 2020-08-06 09:01 | Anesthesia Day of Surgery ---
Anesthesia Day of Surgery - Day of Surgery Patient Examined: Yes Patient H&P Reviewed: Yes Patient is NPO: Yes Beta Blockers: Yes
--- NOTE | 2020-08-06 09:01 | Anesthesia Consultation ---
Anesthesia Consult and Med Hx Date of service: 08/06/20 - Airway Mallampati Class: Class III Intubation Access Assessment: Possibly Difficult - Pre-Operative Health Status ASA Pre-Surgery Classification: ASA3 Proposed Anesthetic Plan: MAC - Pulmonary Hx Smoking: Yes (former smoker quit 30 yrs) Hx Asthma: Yes (childhood astham) Hx Respiratory Symptoms: Yes (2-3L NC while inpatient per chart review) Hx Sleep Apnea: No - Cardiovascular System Hx Hypertension: Yes Hx Heart Attack/AMI: No Hx Cardia Arrhythmia: No Hx Peripheral Vascular Disease: Yes (b/l UE and LLE gangrene) - Central Nervous System CVA: Yes (w/ vascular dementia) Hx Psychiatric Problems: Yes (AMS this admission, intermittently oriented) - Endocrine Hx End Stage Renal Disease: Yes (MWF HD) Hx Insulin Dependent Diabetes: Yes (episoides of hypoglycemia this admission) - Hematic Hx Anemia: Yes - Other Systems Hx Obesity: No - Additional Comments Anesthesia Medical History Comments: Had IR revascularization procedure last week under MAC without anesthetic complications. Previous anesthesia record reviewed. Anesthesia consent obtained from jimbo Beckman.
[2020-08-06] MEDS ORDERED: LIDOCAINE MPF (2%) 20 MG/1 ML VIAL 5 ML ONE (09:14)
[2020-08-06] MEDS ORDERED: HYDROmorphone 1 MG/1 ML INJ ONE (09:14)
[2020-08-06] MEDS ORDERED: ONDANSETRON 4 MG/2 ML INJ ONE (09:14)
[2020-08-06] MEDS ORDERED: propofoL 200 MG/20 ML VIAL IV ONE ×4 (09:15)
[2020-08-06] MEDS ORDERED: KETAMINE/STERILE WATER 50 MG/ML SYRINGE ONE (09:15)
[2020-08-06] MEDS ORDERED: ePHEDrine SULFATE 50 MG/1 ML INJ ONE (09:16)
[2020-08-06] MEDS ORDERED: LIDOCAINE (2%) 20 MG/1 ML VIAL 20 ML MDV INFILTRATI ONE ×2 (09:43→10:20)
[2020-08-06] MEDS ORDERED: HEPARIN/NS 5000 UNIT/500ML 1,000 ML IR ONE (09:43)
[2020-08-06] MEDS ORDERED: HEPARIN 10,000 UNITS/10 ML VIAL ONE (09:43)
[2020-08-06] MEDS ORDERED: SODIUM CHLORIDE 0.9% 500 ML 500 ML ONE (09:43)
[2020-08-06] MEDS ORDERED: ceFAZolin/Water 2 GM/20 ML 2 GM/20 ML SYRINGE IV ONE (10:08)
[2020-08-06] MEDS ORDERED: ceFAZolin/STERILE WATER 2 GM/20 ML SYRINGE IV ONE (10:15)
[2020-08-06] MEDS ORDERED: NITROGLYCERIN SYRINGE 3 ML ONE ×2 (10:20→12:33)
[2020-08-06] MEDS ORDERED: HEPARIN 10,000 UNITS/10 ML VIAL IV ONE ×5 (10:30→13:30)
[2020-08-06] MEDS: CALCIUM ACETATE 667 MG CAP PO SCH ×3 (10:41→22:33)
[2020-08-06] MEDS: SEVELAMER CARBONATE 800 MG TAB PO SCH ×3 (10:41→22:33)
--- NOTE | 2020-08-06 10:49 | Progress Note ---
Subjective Date of service: 08/06/20 Principal diagnosis: Peripheral vascular disease with gangrene Interval history: Assessment: * ESRD * HTN * PVD * Gangrene * Anemia in ESRD Plan: * Continue MWF * uf as tolerated, Sodium noted, fluid restriction * renal diet * dialysis access is a central venous catheter. Site c/d/i * Continue antihypertensives * Continue epogen weekly * Keep MAP>65 * Diet and nutrition: Patient needs to be on high protein diet - 1.2-1.4 g/kg/d * Multiple other complex comorbidities currently being managed by primary team * peripheral arterial disease/gangrene, vascular note reviewed. Plans for revascularization noted * Acute encephalopathy - improving, pain medications discontinued. CT head negative for stroke. Management per primary. * Will continue to follow and make recommendation for renal standpoint Subjective Date of service: 08/05/20 Principal diagnosis: Peripheral vascular disease with gangrene Interval history: More alert today Patient was seen for his renal issues Nursing, interdisciplinary and consult notes were reviewed Vitals, input and output, medications and labs were reviewed Objective - Exam Narrative Exam: General: No acute distress HEENT: Oral mucosa moist Neck: Supple, no JVD Chest: Clear to auscultation bilaterally Heart: RRR, S1 and S2, no pericardial rub Abdomen: Soft, nontender, no renal bruit Extremity: No peripheral cyanosis, edema. LE dressing noted. Neurological: Awake and alert Dermatology: No skin rash Psych: Calm and cooperative Musculoskeletal: No joint effusion Objective - Vital Signs Vital signs: Vital Signs - 12hr 08/05/20 08/05/20 08/06/20 23:21 23:55 00:39 Temperature 98.3 F Pulse Rate 61 Respiratory 24 16 Rate Blood Pressure 129/44 O2 Sat by Pulse 96 88 96 Oximetry 08/06/20 08/06/20 08/06/20 01:09 05:06 06:36 Temperature 98.5 F Pulse Rate 65 69 65 Respiratory 16 Rate Blood Pressure 148/40 148/40 O2 Sat by Pulse 100 Oximetry - Lab 08/06/20 04:56 08/06/20 04:56 Most recent lab results ABG pH 7.316 pH Units (7.350-7.450) L 07/29/20 12:55 ABG pCO2 48.6 mm Hg 07/29/20 12:55 ABG pO2 131.0 mm Hg (80.0-90.0) H 07/29/20 12:55 ABG HCO3 24.3 mmol/L (20.0-26.0) 07/29/20 12:55 ABG O2 Saturation 98.3 % (95.0-99.0) 07/29/20 12:55 Calcium 7.9 mg/dL (8.4-10.2) L 08/06/20 04:56 Medications & Allergies - Medications Allergies/Adverse Reactions: Allergies No Known Allergies Allergy (Verified 05/01/15 08:52) Home Medications: Home Medications Medication Instructions Recorded Confirmed Last Taken Type Calcium Acetate [Phoslo] 667 mg PO TID 07/24/20 07/24/20 Unknown History Fenofibrate 160 mg PO QDAY 07/24/20 07/24/20 Unknown History Gabapentin [Neurontin] 100 mg PO Q8HR 07/24/20 07/24/20 Unknown History HYDROcodone/ACETAMINOPHEN 1 each PO Q8HR PRN 07/24/20 07/24/20 Unknown History [Hydrocodone-Acetamin 5-300 mg] Losartan Potassium 100 mg PO QDAY 07/24/20 07/24/20 Unknown History Montelukast [Singulair] 10 mg PO QPM 07/24/20 07/24/20 Unknown History Sevelamer Carbonate [Renvela] 800 mg PO TIDWM 07/24/20 07/24/20 Unknown History Simvastatin 40 mg PO QDAY 07/24/20 07/24/20 Unknown History allopurinoL [Zyloprim] 100 mg PO QDAY 07/24/20 07/24/20 Unknown History traZODone [Desyrel] 50 mg PO QHS 07/24/20 07/24/20 Unknown History traZODone [Desyrel] 50 mg PO QHS 07/24/20 07/24/20 Unknown History Active Medications: Generic Name Dose Route Start Last Admin Trade Name Freq PRN Reason Stop Dose Admin Acetaminophen 650 mg 07/24/20 12:34 Acetaminophen 325 Mg Tab PO Q4H PRN Pain MILD(1-3)/Fever >100.5/ANDRADE Acetaminophen 650 mg 07/31/20 13:52 07/31/20 16:11 Acetaminophen 650 Mg Rect Supp [place] 650 mg Q4H PRN Administration Fever >101 Albuterol 2.5 mg 07/24/20 12:30 Albuterol 2.5 Mg/3 Ml Nebu IH Q4HRT PRN Shortness Of Breath Allopurinol 100 mg 07/25/20 10:00 08/05/20 10:29 Allopurinol 100 Mg Tab PO 100 mg QDAY SADAF Administration Aspirin 81 mg 07/30/20 16:00 08/05/20 09:06 Aspirin Ec 81 Mg Tab PO 81 mg QDAY SADAF Administration Calcium Acetate 667 mg 07/24/20 17:00 08/06/20 10:41 Calcium Acetate 667 Mg Cap PO Not Given TIDWM SADAF Carvedilol 6.25 mg 07/24/20 22:00 08/05/20 21:45 Carvedilol 6.25 Mg Tab PO 6.25 mg BID SADAF Administration Clopidogrel Bisulfate 75 mg 07/31/20 10:00 08/05/20 09:05 Clopidogrel 75 Mg Tab PO 75 mg QDAY SADAF Administration Dextrose 50 ml 07/31/20 08:37 08/05/20 00:55 Dextrose 50% In Water (25gm) 50 Ml Syringe IV 15 ml Q30MIN PRN Administration Hypoglycemia Protocol Doxazosin Mesylate 4 mg 07/26/20 10:00 08/05/20 09:05 Doxazosin 4 Mg Tab PO 4 mg DAILY SADAF Administration Epoetin Jose 20,000 unit 07/26/20 10:00 08/02/20 12:24 Epoetin Jose 20,000 Unit/1 Ml Inj SUB-Q Not Given Th [facility] Fenofibrate 145 mg 07/25/20 10:00 08/05/20 09:05 Fenofibrate 145 Mg Tab PO 145 mg DAILY SADAF Administration Ferrous Sulfate 325 mg 07/24/20 22:00 08/05/20 21:44 Ferrous Sulfate 325 Mg Tab PO 325 mg BID ASDAF Administration Fish Oil 1,000 mg 07/25/20 10:00 08/05/20 10:29 [place]-3 Fatty Acids/Fish Oil 1 Gram Cap PO 1,000 mg DAILY SADAF Administration Hydralazine HCl 50 mg 07/28/20 22:00 08/06/20 06:36 Hydralazine 25 Mg Tab PO Not Given Q8HR SADAF Hydralazine HCl 10 mg 07/28/20 16:22 08/02/20 08:46 Hydralazine 20 Mg/1 Ml Inj IV 10 mg Q6H PRN Administration Blood Pressure Dextrose 1,000 mls @ 75 mls/hr 07/31/20 12:00 08/05/20 21:44 D10w IV 75 mls/hr DIRECT SADAF Administration Sodium Chloride 100 mls @ 999 mls/hr 08/01/20 09:55 Nacl 0.9% IV PETTY PRN Hypotension Losartan Potassium 100 mg 07/25/20 10:00 08/05/20 09:06 Losartan 50 Mg Tab PO 100 mg QDAY SADAF Administration Montelukast Sodium 10 mg 07/24/20 18:00 08/04/20 17:55 Montelukast 10 Mg Tab PO 10 mg QPM SADAF Administration Multivit/Ca Carb/B Cmplx/FA/Prenat 1 cap 07/26/20 10:00 08/05/20 09:05 Folic Acid/Vit B Comp W-C 1 Mg (Renal Caps) PO 1 cap QDAY SADAF Administration Multivitamins/Minerals 1 each 07/25/20 10:00 08/05/20 09:04 Multivitamins,Ther W-Minerals Tab PO 1 each QDAY SADAF Administration Ondansetron HCl 4 mg 07/24/20 12:00 Ondansetron 4 Mg/2 Ml Inj IV Q8H PRN Nausea And Vomiting Pravastatin Sodium 80 mg 07/24/20 22:00 08/05/20 21:44 Pravastatin 80 Mg Tab PO 80 mg QHS SADAF Administration Sevelamer Carbonate 800 mg 07/24/20 17:00 08/06/20 10:41 Sevelamer Carbonate 800 Mg Tab PO Not Given TIDWM SADAF Sodium Chloride 10 ml 07/24/20 12:30 08/06/20 10:41 Sodium Chloride 0.9% 10 Ml Flush Syringe IV Not Given BID SADAF Sodium Chloride 10 ml 07/24/20 12:30 07/24/20 12:39 Sodium Chloride 0.9% 10 Ml Flush Syringe IV 10 ml PRN PRN Administration LINE FLUSH
[2020-08-06] MEDS ORDERED: HEPARIN/NS 5000 UNIT/500ML 500 ML IR ONE (12:15)
[2020-08-06] MEDS ORDERED: NITROGLYCERIN 600 MCG/3 ML SYRINGE INTRA-ARTE ONE ×4 (12:23→13:17)
[2020-08-06] MEDS ORDERED: DEXTROSE 50% IN WATER (25GM) 50 ML SYRINGE IV ONE ×2 (12:33→12:40)
[2020-08-06] MEDS ORDERED: VERAPAMIL 5 MG/2 ML INJ ONE (12:34)
[2020-08-06] MEDS ORDERED: VERAPAMIL 5 MG/2 ML INJ ART-SHEATH ONE ×2 (12:37→13:16)
[2020-08-06] MEDS: carvediloL 6.25 MG TAB PO SCH ×2 (13:54→22:39)
[2020-08-06] MEDS: FERROUS SULFATE 325 MG TAB PO SCH ×2 (13:54→22:39)
--- NOTE | 2020-08-06 14:05 | Progress Note ---
Assessment and Plan Assessment and plan: # Sepsis Secondary to lower extremity cellulitis Completed antibiotics ID recommendations appreciated #Peripheral vascular disease with gangrene of the left first and second toe Now status post angiography with angioplasty of the distal femoral vessels Continue aspirin and Plavix Vascular surgery following For vascularization of bilateral upper extremities and left iliac system today #Acute metabolic encephalopathy Improved CT head negative Continue to hold all pain medications and gabapentin Discontinued trazodone #Hypertension, hyperlipidemia/hypertriglyceridemia Continue hydralazine 50 mg every 8 Continue losartan Continue Coreg Fenofibrate, statins #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 Sons number is Timmy Beckman #DVT prophylaxis SCD to bilateral lower extremities while in bed, prophylactic anticoagulation. History Interval history: 80 YO Male with ESRD on HD (M, W, F), HTN, DM, Vascular Dementia, Cerebral Atherosclerosis presents to ED for evaluation. Patient is confused and unable to provide detailed history at time of exam. Patient caregiver is at bedside during exam and interview and provides history. As per the patient's the patient has experienced increased weakness and confusion over the past 1 month with increased bedbound status. Patient was seen and evaluated by his vascular surgeon today and was found to have left foot cellulitis. Patient was instr ucted to seek further care at [facility]. Patient transported to [facility] via private vehicle for further care and evaluation of the aforementioned symptoms. The patient was seen and evaluated in the emergency department. All lab and imaging studies reviewed. Patient found to have end-stage renal disease, left foot cellulitis complicated by systemic inflammatory response syndrome, as well as peripheral vascular disease. Patient admitted to medical floor and initiated on IV antibiotic therapy. Nephrology team consulted in ED. Vascular surgery team consulted in ED. No further history is obtainable. No reports of fever, chills, chest pain, palpitation, productive cough, skin rash, syncope, trauma, recent ill contacts, or known exposure to COVID-19. Patient is unable to provide history but has a positive gag reflex and is able to protect his airway without difficulty at the time my evaluation. Prior admission on 07/05/2019 reviewed. All medication listed at time of admission has been reconciled. Advanced care planning conducted in ED. CT: Head: Negative for acute pathology. 07/25: Discussed with the IR, patient with new onset Altered mental status from the last time they saw the patient. Will begin work-up for possible underlying sepsis etiology or source unknown at this time. Will obtain ID consulted and Neurology. Continue abx, attempted to reach family. Concern for stroke is low but considering hx of vasculopathy will obtain Neurology Will also obtain wound consultation. 07/26: Some improvement noted with initiation of antibiotics. We will continue current management patient continues on hemodialysis. Will await further vascular improvement as patient is beginning to show some improvement. Discussed with case management. Apparently the person that came with the pa tient is not the patient's but a caregiver H&P portion of this note has been corrected. Continue wound care and every 2 hours turns. 07/27: Continue current management plan. Vascular to re-evaluate. Continue abx. MRI with no acute pathology. Agree with the D5 as patient still has some intermittent confusion. Continue to monitor. Speech evaluation for swallow management. 07/28: Patient clinically stable, continue supportive care, abx, awaiting full vascular input. cONTINUE D5 for now. 07/29: We will give patient dose of Lasix, get a chest x-ray. Discussed with nursing staff could be that the patient was appear hypoxic due to cold extremities. Will obtain an ABG. We will also obtain a pulmonary consult for clearance for anticipated vascular procedure in a.m. 07/30: Noted hypoglycemia this morning we will give D50 and amp. Patient is for procedure today. Discussed with vascular. Per discussion with nursing saturation has improved. Pulmonary input is noted. He was admitted for digital gangrene on multiple digits both fingers and toes. Was also noted to be septic requiring treatment which has led to improvement in his mental status. 07/31. Now status post angiography and angioplasty of distal femoral arteries. Now on antiplatelets. He has been having episodes of hypoglycemia. Started him on D10 water. Continue to monitor closely for now. CT head ordered to rule out any CVA though not likely. Vascular surgery following. 08/01. Patient remains lethargic. Discontinued pain medications and gabapentin. On IV antibiotics. Started on D10 water yesterday for hypoglycemia. If lethargy does not improve, will place an NG tube. CT head negative for any stroke. 08/02. More responsive today. Still gets agitated and pulling on his IV lines so was placed on restraints. Needs to have a repeat swallow evaluation. Blood glucose is table. 08/03. Responsive today. Alert and oriented x2. Will get vascular to reevaluate. Needs to have revascularization of LE vessels as per vascular. Passed swallow evaluation yesterday and has been started on a diet. 08/04. Plan for vascularization of the extremities as per vascular. 08/05. No complaints today. Plan for revascularization tomorrow. NPO after midnight 08/06. Plan for revascularization today. He will need placement but PT yet to see. Hospitalist Physical - Physical exam Narrative exam: VITAL SIGNS: Reviewed. GENERAL: Awake HEAD: No signs of head trauma. EYES: Pupils are equal. Extraocular motions intact. MOUTH: Oropharynx is normal. NECK: No adenopathy, no JVD. CHEST: Chest with diminished breath sounds bilaterally. No wheezes, rales, or rhonchi. CARDIAC: normal S1 and S2, without murmurs, gallops, or rubs. ABDOMEN: Soft, non tender and non distended. No rebound or guarding, and no masses palpated. Bowel Sounds normal. MUSCULOSKELETAL: LLE: Gangrenous looking big toe, proximal area of the leg feels warm to touch. NEUROLOGIC EXAM: Awake and alert today SKIN: No obvious lesions - Constitutional Vitals: Temp Pulse Resp BP Pulse Ox 98.5 F 65 16 148/40 96 08/06/20 05:06 08/06/20 06:36 08/06/20 05:06 08/06/20 06:36 08/06/20 10:00 Results - Labs CBC & Chem 7: 08/06/20 04:56 08/06/20 04:56 Labs: Laboratory Last Values WBC 10.4 K/mm3 (4.5-11.0) 08/06/20 04:56 RBC 2.55 M/mm3 (3.65-5.03) L 08/06/20 04:56 Hgb 8.1 gm/dl (11.8-15.2) L 08/06/20 04:56 Hct 24.5 % (35.5-45.6) L 08/06/20 04:56 MCV 96 fl (84-94) H 08/06/20 04:56 MCH 32 pg (28-32) 08/06/20 04:56 MCHC 33 % (32-34) 08/06/20 04:56 RDW 15.4 % (13.2-15.2) H 08/06/20 04:56 Plt Count 129 K/mm3 (140-440) L 08/06/20 04:56 Lymph % (Auto) 10.9 % (13.4-35.0) L 08/06/20 04:56 [place] % (Auto) 7.9 % (0.0-7.3) H 08/06/20 04:56 Eos % (Auto) 1.4 % (0.0-4.3) 08/06/20 04:56 Baso % (Auto) 0.8 % (0.0-1.8) 08/06/20 04:56 Lymph # (Auto) 1.1 K/mm3 (1.2-5.4) L 08/06/20 04:56 [place] # (Auto) 0.8 K/mm3 (0.0-0.8) 08/06/20 04:56 Eos # (Auto) 0.1 K/mm3 (0.0-0.4) 08/06/20 04:56 Baso # (Auto) 0.1 K/mm3 (0.0-0.1) 08/06/20 04:56 Seg Neutrophils % 79.0 % (40.0-70.0) H 08/06/20 04:56 Seg Neutrophils # 8.2 K/mm3 (1.8-7.7) H 08/06/20 04:56 PT 13.9 Sec. (12.2-14.9) 08/06/20 04:56 INR 1.08 (0.87-1.13) 08/06/20 04:56 APTT 45.0 Sec. (24.2-36.6) H 07/24/20 08:40 ABG pH 7.316 pH Units (7.350-7.450) L 07/29/20 12:55 ABG pCO2 48.6 mm Hg 07/29/20 12:55 ABG pO2 131.0 mm Hg (80.0-90.0) H 07/29/20 12:55 ABG HCO3 24.3 mmol/L (20.0-26.0) 07/29/20 12:55 ABG O2 Saturation 98.3 % (95.0-99.0) 07/29/20 12:55 ABG O2 Content 13.1 (0.0-44) 07/29/20 12:55 ABG Base Excess -2.0 mmol/L (-2.0-3.0) 07/29/20 12:55 ABG Hemoglobin 9.4 gm/dl (14.0-18.0) L 07/29/20 12:55 ABG Carboxyhemoglobin 1.1 % (0.0-5.0) 07/29/20 12:55 ABG Methemoglobin 0.6 % (0.0-1.5) 07/29/20 12:55 Oxyhemoglobin 96.7 % (95.0-99.0) 07/29/20 12:55 FiO2 32 % 07/29/20 12:55 Sodium 127 mmol/L (137-145) L 08/06/20 04:56 Potassium 5.0 mmol/L (3.6-5.0) 08/06/20 04:56 Chloride 91.9 mmol/L (98-107) L 08/06/20 04:56 Carbon Dioxide 27 mmol/L (22-30) 08/06/20 04:56 Anion Gap 13 mmol/L 08/06/20 04:56 BUN 28 mg/dL (9-20) H 08/06/20 04:56 Creatinine 5.8 mg/dL (0.8-1.3) H 08/06/20 04:56 Estimated GFR 10 ml/min 08/06/20 04:56 BUN/Creatinine Ratio 5 % 08/06/20 04:56 Glucose 94 mg/dL (75-100) 08/06/20 04:56 POC Glucose 86 mg/dL (70-105) 08/06/20 05:28 Lactic Acid 0.90 mmol/L (0.7-2.0) 07/24/20 10:20 Calcium 7.9 mg/dL (8.4-10.2) L 08/06/20 04:56 Ionized Calcium 5.1 mg/dL (4.8-5.6) 07/30/20 09:03 Total Bilirubin 0.40 mg/dL (0.1-1.2) 08/06/20 04:56 AST 22 units/L (5-40) 08/06/20 04:56 ALT 20 units/L (7-56) 08/06/20 04:56 Alkaline Phosphatase 56 units/L (35-129) 08/06/20 04:56 Total Protein 5.0 g/dL (6.3-8.2) L 08/06/20 04:56 Albumin 1.9 g/dL (3.9-5) L 08/06/20 04:56 Albumin/Globulin Ratio 0.6 % 08/06/20 04:56 Prealbumin 0.116 g/L (0.200-0.400) L 07/27/20 16:25 Vitamin B1 17 nmol/L (8-30) 07/27/20 16:25 Vitamin B12 980.0 pg/mL (211-911) H 07/27/20 16:25 Folate 12.73 ng/mL (7.3-26.0) 07/27/20 16:25 Nasal Screen MRSA (PCR) Negative (Negative) 07/24/20 Unknown Random Vancomycin 20.7 ug/mL (0-40.0) 08/01/20 05:16 Copper 113 mcg/dL (70-175) 07/27/20 16:25 Coronavirus (PCR) Negative (Negative) 08/04/20 Unknown Hepatitis A IgM Ab Non-reactive (NonReactive) 07/25/20 15:30 Hep Bs Antigen Non-reactive (Negative) 07/25/20 15:30 Hep B Core IgM Ab Non-reactive (NonReactive) 07/25/20 15:30 Hepatitis C Antibody Non-reactive (NonReactive) 07/25/20 15:30 [place]/IV: Voiding Method Diaper Active Medications - Current Medications Current Medications: Generic Name Dose Route Start Last Admin Trade Name Freq PRN Reason Stop Dose Admin Acetaminophen 650 mg 07/24/20 12:34 Acetaminophen 325 Mg Tab PO Q4H PRN Pain MILD(1-3)/Fever >100.5/ANDRADE Acetaminophen 650 mg 07/31/20 13:52 07/31/20 16:11 Acetaminophen 650 Mg Rect Supp [place] 650 mg Q4H PRN Administration Fever >101 Albuterol 2.5 mg 07/24/20 12:30 Albuterol 2.5 Mg/3 Ml Nebu IH Q4HRT PRN Shortness Of Breath Allopurinol 100 mg 07/25/20 10:00 08/05/20 10:29 Allopurinol 100 Mg Tab PO 100 mg QDAY SADAF Administration Aspirin 81 mg 07/30/20 16:00 08/05/20 09:06 Aspirin Ec 81 Mg Tab PO 81 mg QDAY SADAF Administration Calcium Acetate 667 mg 07/24/20 17:00 08/06/20 13:54 Calcium Acetate 667 Mg Cap PO Not Given TIDWM [facility] Carvedilol 6.25 mg 07/24/20 22:00 08/06/20 13:54 Carvedilol 6.25 Mg Tab PO Not Given BID [facility] Clopidogrel Bisulfate 75 mg 07/31/20 10:00 08/05/20 09:05 Clopidogrel 75 Mg Tab PO 75 mg QDAY SADAF Administration Dextrose 50 ml 07/31/20 08:37 08/05/20 00:55 Dextrose 50% In Water (25gm) 50 Ml Syringe IV 15 ml Q30MIN PRN Administration Hypoglycemia Protocol Doxazosin Mesylate 4 mg 07/26/20 10:00 08/05/20 09:05 Doxazosin 4 Mg Tab PO 4 mg DAILY SADAF Administration Epoetin Jose 20,000 unit 07/26/20 10:00 08/02/20 12:24 Epoetin Jose 20,000 Unit/1 Ml Inj SUB-Q Not Given Th [facility] Fenofibrate 145 mg 07/25/20 10:00 08/05/20 09:05 Fenofibrate 145 Mg Tab PO 145 mg DAILY SADAF Administration Ferrous Sulfate 325 mg 07/24/20 22:00 08/06/20 13:54 Ferrous Sulfate 325 Mg Tab PO Not Given BID [facility] Fish Oil 1,000 mg 07/25/20 10:00 08/05/20 10:29 [place]-3 Fatty Acids/Fish Oil 1 Gram Cap PO 1,000 mg DAILY SADAF Administration Hydralazine HCl 50 mg 07/28/20 22:00 08/06/20 06:36 Hydralazine 25 Mg Tab PO Not Given Q8HR [facility] Hydralazine HCl 10 mg 07/28/20 16:22 08/02/20 08:46 Hydralazine 20 Mg/1 Ml Inj IV 10 mg Q6H PRN Administration Blood Pressure Dextrose 1,000 mls @ 75 mls/hr 07/31/20 12:00 08/05/20 21:44 D10w IV 75 mls/hr DIRECT SADAF Administration Sodium Chloride 100 mls @ 999 mls/hr 08/01/20 09:55 Nacl 0.9% IV PETTY PRN Hypotension Losartan Potassium 100 mg 07/25/20 10:00 08/05/20 09:06 Losartan 50 Mg Tab PO 100 mg QDAY SADAF Administration Montelukast Sodium 10 mg 07/24/20 18:00 08/04/20 17:55 Montelukast 10 Mg Tab PO 10 mg QPM SADAF Administration Multivit/Ca Carb/B Cmplx/FA/Prenat 1 cap 07/26/20 10:00 08/05/20 09:05 Folic Acid/Vit B Comp W-C 1 Mg (Renal Caps) PO 1 cap QDAY SADAF Administration Multivitamins/Minerals 1 each 07/25/20 10:00 08/05/20 09:04 Multivitamins,Ther W-Minerals Tab PO 1 each QDAY SADAF Administration Ondansetron HCl 4 mg 07/24/20 12:00 Ondansetron 4 Mg/2 Ml Inj IV Q8H PRN Nausea And Vomiting Pravastatin Sodium 80 mg 07/24/20 22:00 08/05/20 21:44 Pravastatin 80 Mg Tab PO 80 mg QHS SADAF Administration Sevelamer Carbonate 800 mg 07/24/20 17:00 08/06/20 13:54 Sevelamer Carbonate 800 Mg Tab PO Not Given TIDWM SADAF Sodium Chloride 10 ml 07/24/20 12:30 08/06/20 10:41 Sodium Chloride 0.9% 10 Ml Flush Syringe IV Not Given BID SADAF Sodium Chloride 10 ml 07/24/20 12:30 07/24/20 12:39 Sodium Chloride 0.9% 10 Ml Flush Syringe IV 10 ml PRN PRN Administration LINE FLUSH Nutrition/Malnutrition Assess - Dietary Evaluation Nutrition/Malnutrition Findings: Nutrition Notes Start: 07/25/20 13:43 Freq: Status: Active Protocol: Document 08/03/20 08:38 AT (Rec: 08/03/20 08:51 AT [id number]) Co-Sign 08/03/20 08:38 MK Nutrition Notes Initial or Follow up Reassessment Current Diagnosis CKD (stage V CKD),Decubitus( Pressure Ulcer),Diabetes, Sepsis,Hypertension,Stroke, Hyperlipidemia Other Pertinent Diagnosis on HD, Cellulitis, Gangrene, Cerebral Atherosclerosis, Peripheral Vascular Current Diet Mechanical Soft Diet Labs/Tests POC BG 223 No new labs Pertinent Medications D10W at 75 mL/hr Renvela Phoslo Ferrous Sulfate Fish Oil MVI Height 5 ft 9 in Weight 71.8 kg [place] Body Weight (kg) 72.72 BMI 23.3 Weight Status Appropriate Subjective/Other Information Follow up for POC. 08/02 ABNORMAL PSYCHOLOGY TEACHER recommended upgrading diet to mechanical soft with chopped meats, and thin liquids. Pt is off the floor for HD at time of visit. Percent of energy/protein needs met: 0%/0% Burn Absent Trauma Absent Difficulty In Swallowing Skin Integrity/Comment Diabetic Ulcer Current % PO Negligible Minimum of two criteria No Reduced Lobby Concierge Strength Measurably Reduced (severe) #3 Nutrition Diagnosis Inadequate energy intake Diagnosis Progress(for reassessment Continues documentation) #2 Nutrition Diagnosis Increased nutrient needs ( specify in comment below) Comments: protein Diagnosis Progress(for reassessment Continues documentation) Is patient on ventilator? No Is Patient Ambulatory and/or Out of Bed No REE-([facility]-confined to bed) 1720.680 Calculation Used for Recommendations [facility] Additional Notes PRO needs: >86 g(>1.2 g/kg) Fluid needs: Urine output + 1000 mL or per MD Nutrition Intervention Change Diet Order: Continue Mechanical Soft Diet with chopped meat and thin liquids per ABNORMAL PSYCHOLOGY TEACHER Add Supplement/Snack (indicate name/kcal Nepro daily /protein ) Provides kCal: 425 Provides Protein (gm) 19 Goal #1 Meet at least 75% of estimated energy and protein needs via diet and ONS Goal #2 Wound healing Anticipated Discharge Needs: Mechanical Soft Renal/ Consistent CHO Follow-Up By: 08/07/20 Additional Comments F/U for stable intakes, ONS tolerance
[2020-08-06] MEDS ORDERED: LIDOCAINE 2%/EPINEPHRINE 1:100,000 VIAL (20 ML) INFILTRATI ONE (14:14)
[2020-08-06] MEDS ORDERED: hydrALAZINE 20 MG/1 ML INJ ONE (14:18)
--- NOTE | 2020-08-06 15:06 | Post Operative Note ---
Date of procedure: 08/06/20 Pre-op diagnosis: PVD with gangrene of multiple extremities Post-op diagnosis: same Procedure: 1. Ultrasound-guided access of the right common femoral artery. 2. Angiography of the right lower extremity. 3. Selection of the abdominal aorta with angiography. 4. Shockwave angioplasty of the right common iliac artery with a 7 mm x 60 mm angioplasty balloon 5. Shockwave angioplasty of the left common iliac artery with a 7 mm x 60 mm angioplasty balloon. 6. Selection of the left superficial femoral artery with angiography of the left lower extremity. 7. Attempted passage of catheter up and over to the left iliac vessels which was unsuccessful 8. Selection of the left subclavian artery, axillary artery, brachial artery, with angiography of the left upper extremity. 9. Selection of the left ulnar artery with angioplasty with a 2.5 mm x 220 mm angioplasty balloon, 2 mm x 80 mm angioplasty balloon, 2.5 mm x 120 mm angioplasty balloon, and a 3 mm x 40 mm angioplasty balloon. 10. Selection of the left radial artery with angioplasty with a 2.5 mm x 220 mm angioplasty balloon, 2.5 mm x 100 mm chocolate angioplasty balloon, 3 mm x 40 mm angioplasty balloon, 2.5 mm x 40 mm angiosculpt. 11. Selection of the right subclavian artery, axillary artery, brachial artery, with angiography of the right upper extremity. 12. Selection of the right radial artery with angioplasty with a 3 mm x 40 mm angioplasty balloon. Anesthesia: MAC Surgeon: RADHA CADENA Estimated blood loss: minimal Condition: stable Disposition: floor
[2020-08-06] MEDS: DOXAZOSIN 4 MG TAB PO SCH (15:12)
[2020-08-06] MEDS: FOLIC ACID/VIT B COMP W-C 1 MG (RENAL CAPS) PO SCH (15:12)
[2020-08-06] MEDS: OMEGA-3 FATTY ACIDS/FISH OIL 1 GRAM CAP PO SCH (15:12)
[2020-08-06] MEDS: ASPIRIN EC 81 MG TAB PO SCH (15:12)
[2020-08-06] MEDS: CLOPIDOGREL 75 MG TAB PO SCH (15:12)
[2020-08-06] MEDS: LOSARTAN 50 MG TAB PO SCH (15:12)
[2020-08-06] MEDS: allopurinoL 100 MG TAB PO SCH (15:13)
[2020-08-06] MEDS: FENOFIBRATE 145 MG TAB PO SCH (15:13)
[2020-08-06] MEDS: MULTIVITAMINS,THER W-MINERALS TAB PO SCH (15:13)
--- NOTE | 2020-08-06 16:47 | Post Anesthesia Evaluation ---
- Post Anesthesia Evaluation Patient Participated: No Airway Patent: Yes Stable Respiratory Function: Yes Nausea/Vomiting: No Temp > 96.8F: Yes Pain Manageable: Yes Adequeate Hydration: Yes Anesthesia Complications: No
--- NOTE | 2020-08-06 16:55 | Operative Report ---
Operative Report Operative Report: EXAM: 1. Ultrasound-guided access of the right common femoral artery. 2. Angiography of the right lower extremity. 3. Selection of the abdominal aorta with angiography. 4. Shockwave angioplasty of the right common iliac artery with a 7 mm x 60 mm angioplasty balloon 5. Shockwave angioplasty of the left common iliac artery with a 7 mm x 60 mm angioplasty balloon. 6. Selection of the left superficial femoral artery with angiography of the left lower extremity. 7. Attempted passage of catheter up and over to the left iliac vessels which was unsuccessful 8. Selection of the left subclavian artery, axillary artery, brachial artery, with angiography of the left upper extremity. 9. Selection of the left ulnar artery with angioplasty with a 2.5 mm x 220 mm angioplasty balloon, 2 mm x 80 mm angioplasty balloon, 2.5 mm x 120 mm angioplasty balloon, and a 3 mm x 40 mm angioplasty balloon. 10. Selection of the left radial artery with angioplasty with a 2.5 mm x 220 mm angioplasty balloon, 2.5 mm x 100 mm chocolate angioplasty balloon, 3 mm x 40 mm angioplasty balloon, 2.5 mm x 40 mm angiosculpt. 11. Selection of the right subclavian artery, axillary artery, brachial artery, with angiography of the right upper extremity. 12. Selection of the right radial artery with angioplasty with a 3 mm x 40 mm angioplasty balloon. DATE: 08/06/2020 DOCUMENTATION BILLING CLERK: RADHA CADENA MD INDICATION: Gangrene of the right upper extremity second digit, gangrene of the left upper extremity second digit, gangrene of the left first and second digit of the left lower extremity, and severe arterial disease of all 4 extremities. MEDICATIONS: Please see nursing report for full details. DEVICES: 7 mm x 60 mm shockwave angioplasty balloon 2.5 mm x 220 mm angioplasty balloon 2 mm x 80 mm angioplasty balloon 2.5 mm x 120 mm angioplasty balloon 3 mm x 40 mm angioplasty balloon 2 mm x 100 mm chocolate angioplasty balloon 2.5 mm x 40 mm angiosulpt balloon CONTRAST: Please see Video Operator report for full details PROCEDURE: The risks, benefits, and alternatives were discussed with the patient's son; telephone informed consent was obtained. The patient was brought to the Video Operator suite and both groins were prepped and draped in a sterile fashion. Ultrasound was used to identify the right common femoral artery. Under direct ultrasound guidance, the right common femoral artery was accessed with a 21- gauge micropuncture needle. 0.018 inch wire was passed into the artery. Needle was exchanged for transitional dilator. Wire was exchanged for a 0.035 inch wire. Transitional dilator was then exchanged for a 5 Mauritian sheath. Digital subtraction angiography was performed demonstrating patency of the upper portion of the right common femoral artery calcific posterior plaques of the mid and lower portion of the right common femoral artery. These plaques were better visualized on ultrasound at the time of access of the vessel. There is a low takeoff of the common femoral artery from the external iliac artery as determined by the inferior epigastric location. The right proximal superficial femoral artery has a 50% narrowing, and the right proximal profunda femoral artery has a 50% narrowing. Based on the original ultrasound, I determined that this patient was not a good candidate for a closure device due to the posterior plaques. The puncture was appropriate, above the bifurcation below the inferior epigastric artery. The right external iliac artery and internal iliac artery were patent. The right lower and mid common iliac artery were patent. There is a 90+ percent narrowing of the right proximal common iliac artery. Wire and catheter were then manipulated into the abdominal aorta. Digital subtraction angiography was performed demonstrating patency of the infrarenal abdominal aorta, left common iliac artery which had 10 to 20% narrowing, and left external iliac artery which had 10 to 20% narrowing. The left internal iliac artery had a 90% proximal narrowing. The right iliac system was described above. The patient was then heparinized. Sheath was exchanged for 6 Mauritian sheath and the wire was exchanged for a 0.014 inch wire. 7 mm x 60 mm shockwave angioplasty balloon was then advanced over the wire and used to perform angioplasty of the right common iliac artery using numerous shockwave angioplasties. The maximum pressure used was 3 bethany. This was then exchanged for a pigtail catheter which demonstrated 40% narrowing of this right common iliac artery. I then used an Omni Flush and an angled catheter and performed selection of the left common and external iliac artery and common femoral artery with digital subtraction angiography performed of the left lower extremity. Digital subtraction angiography demonstrated the above-mentioned left iliac findings, and that the left common femoral artery had some posterior plaque along its course which likely resulted in 30 to 40% narrowing. The left profundofemoral artery and superficial femoral artery proximally were patent. I then passed a Glidewire advantage into the left popliteal artery. Despite the predilatation, I could not advance the 6 Mauritian sheath up and over to treat the left common femoral artery. I even exchanged the 0.035 inch wire for a 0.014 inch wire and attempted to pass the shockwave this way, but could only pass the shockwave into the left distal common iliac artery. Shockwave angioplasty was performed and there was no residual narrowing at this location, but I could not pass the shockwave angioplasty balloon into the left common femoral artery despite multiple attempts. I then decided to treat the iliac bifurcation by using the shockwave angioplasty balloon to treat this region in an attempt to allow the sheath the past up and over, but despite this, the sheath did not pass. Repeat angiography demonstrated 30 to 40% residual narrowing of the right common iliac artery. I then aborted attempts at going up and over as I determined that the patient's anatomy would not allow me to do so. I then selected the left subclavian artery, and axillary artery, brachial artery, and radial and ulnar artery and digital subtraction angiography was performed. Sheath was ultimately advanced into the left distal subclavian artery. The left subclavian artery, axillary artery, and brachial artery were patent. 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 The left proximal and mid ulnar artery were patent. However, the left distal ulnar artery had tandem 90% narrowings and the distal vessels leading to the palmar arch had diffuse high-grade narrowings. The interosseous artery was proximally and mid patent, but the distal portion of the vessel was atretic. The radial artery was proximally patent, but the midportion had a 90% narrowing, and the distal portion of the vessel had diffuse 50% narrowing with a 90% narrowing before it reached the palmar arch. The ulnar artery was first selected and wire and catheter were then advanced into the distal ulnar artery. Multiple angioplasties were performed in an attempt to treat the severely narrowed vessel including treatment with a 2.5 x 220 mm angioplasty balloon along the distal portion and a 2 mm x 80 mm angioplasty balloon in order to treat the portion leading to the palmar arch. 2.5 mm x 120 mm angioplasty balloon was then used to treat some refractory areas which were ultimately treated with a 3 mm x 40 mm angioplasty balloon at higher pressures. Ultimately, digital subtraction angiography demonstrated less than 20% residual narrowing. The left radial artery was then selected and multiple angioplasty balloons were used to treat the area of narrowing which was highly resistant to treatment. 2.5 mm x 220 mm angioplasty balloon was first used, then followed by a 2.5 mm x 100 mm chocolate balloon, and 3 mm x 40 mm angioplasty balloon which were all partially refractory to treatment. 2.5 mm x 40 mm angioscope balloon was then used which had to be brought to high pressures, but ultimately opened the lesions. Digital subtraction angiography demonstrated ultimately a residual 20 to 30% narrowing in the distal portion of the left radial artery with the rest of the vessel being patent. At this point, all wires, catheters, and sheaths were retracted to the aorta and then the right innominate artery was selected in the right subclavian artery was selected and the right axillary artery was selected. Digital subtraction angiography was then repeated demonstrating patency of the right axillary artery, and brachial artery, with high takeoff of the radial artery, and a patent right subclavian and innominate artery. The ulnar artery had 30 to 40% narrowings within it with a 80 to 90% narrowing at the level of the wrist. The left radial artery was patent until the right wrist at which point there was a 90% narrowing. Since the digit involved was his second digit predominantly filled by the radial artery, I decided to treat that vessel. 3 mm x 40 mm angioplasty balloon was then used to perform angioplasty of the right radial artery at the level of the wrist. Repeat digital subtraction angiography demonstrated less than 10% residual narrowing, with contrast now passing retrograde in the ulnar artery through the palmar arch compatible with brisk antegrade flow through the radial artery. At this point, all wires, catheters, and sheaths were retracted. During the retraction process, I perform digital subtraction angiography which selected the origin of the left vertebral artery. Digital subtraction angiography was performed demonstrating patency of that vessel. I perform digital subtraction angiography at the right common iliac artery again in order to reevaluate the site digital subtraction angiography demonstrated that this area now had 20% residual narrowing. I suspect passage of the sheath had further dilated the vessel and provided much better flow. At this point, all catheters and sheaths were removed and a 6 Mauritian standard sh eath was advanced over the wire. ACT was obtained which was elevated, but there was oozing around the sheath, and I did not want to upsize the sheath, and the oozing did not stop after 5 minutes of pressure. As I discussed previously, I did not want to use a closure device due to the atherosclerotic disease in the femoral vessel. At this point, I decided that the best thing to do would be to remove the sheath and hold pressure until hemostasis was achieved. This was done, and hemostasis was achieved. There is slight bogginess of the right groin, but this was thought to represent the right inguinal hernia noted on the prior CT scan. During pressure dressing placement after hemostasis achieved, we noticed that the patient had some purulent drainage from the posterior aspect of his scrotum. I contacted the hospitalist to alert them of the scrotal infection. FINDINGS: Please see procedure note above. IMPRESSION: Multivessel revascularization as described above.
[2020-08-06] MEDS ORDERED: SODIUM CHLORIDE 0.9% 1000 ML 2,000 ML ONE (17:39)
[2020-08-06] MEDS: PRAVASTATIN 80 MG TAB PO SCH (22:32)
[2020-08-06] MEDS: MONTELUKAST 10 MG TAB PO SCH (22:34)
[2020-08-06] MEDS ORDERED: VANCOMYCIN 1,250 MG in SODIUM CHLORIDE 0.9% 250ML 250 ML IV ONE (23:45)
[2020-08-06] MEDS ORDERED: VANCOMYCIN PHARMACY TO DOSE IV SCH (23:45)
[2020-08-06] MEDS: DEXTROSE 10% IN WATER 1,000 ML IV SCH (23:48)
[2020-08-06] MEDS: cefTRIAXone/NS 1 GM/50 ML 1 GM/50 ML BAG IV SCH (23:57)
[2020-08-07] MEDS: ACETAMINOPHEN 325 MG TAB PO PRN (05:33)
[2020-08-07 05:34] LABS: Mean Corpuscular HGB Conc 33 % (32-34); Mean Corpuscular Volume 97 fl (84-94); Red Blood Count 1.82 M/mm3 (3.65-5.03); Red Cell Distribution Width 15.2 % (13.2-15.2)
[2020-08-07 05:41] LABS: Calcium 7.8 mg/dL (8.4-10.2)
[2020-08-07 05:50] LABS: Platelet Count 281 K/mm3 (140-440)
[2020-08-07 05:52] LABS: Hematocrit 17.5 % (35.5-45.6); Hemoglobin 5.8 gm/dl (11.8-15.2)
[2020-08-07] MEDS: hydrALAZINE 25 MG TAB PO SCH ×3 (06:24→21:32)
[2020-08-07 06:55] LABS: Hypochromasia 2+; Total Cells Counted 100
[2020-08-07 06:56] LABS: Anisocytosis Few; Platelet Estimate Consistent w Auto
[2020-08-07] MEDS ORDERED: SODIUM CHLORIDE 0.9% 500 ML 500 ML IV ONE (08:02)
[2020-08-07] MEDS ORDERED: NORepinephrine/NS 4 MG-250 ML 4 MG/250 ML BAG IV SCH (09:39)
--- NOTE | 2020-08-07 09:46 | Event Note ---
Date: 08/07/20 Patient with severe anemia at this morning hemoglobin 5.6 SBP also very low at 70s to 80s range Patient remains confused Ordered for 2 units of packed RBC Patient getting D10 at 75 ml per hour but noted to develop respiratory distress We will reduce the rate D10 for now, start on Levophed We will transfer to ICU for close monitoring Consult pulmonary critical care and get stat chest x-ray
[2020-08-07 10:16] LABS: Hematocrit 20.2 % (35.5-45.6); Hemoglobin 6.6 gm/dl (11.8-15.2)
[2020-08-07] MEDS ORDERED: EPOETIN ALFA-EPBX 20,000 UNIT/1 ML VIAL IV PRN (10:24)
--- NOTE | 2020-08-07 10:26 | Progress Note ---
Subjective Date of service: 08/07/20 Principal diagnosis: Peripheral vascular disease with gangrene Interval history: Assessment: * ESRD * HTN * PVD * Gangrene * Anemia in ESRD Plan: * Continue MWF * uf as tolerated, Sodium noted, fluid restriction * renal diet * dialysis access is a central venous catheter. Site c/d/i * Continue antihypertensives * Continue epogen q treatment * Keep MAP>65 * Diet and nutrition: Patient needs to be on high protein diet - 1.2-1.4 g/kg/d * Multiple other complex comorbidities currently being managed by primary team * peripheral arterial disease/gangrene, vascular note reviewed. Plans for revascularization noted * Acute encephalopathy - improving, pain medications discontinued. CT head negative for stroke. Management per primary. * Will continue to follow and make recommendation for renal standpoint Subjective Date of service: 08/05/20 Principal diagnosis: Peripheral vascular disease with gangrene Interval history: More alert today Patient was seen for his renal issues Nursing, interdisciplinary and consult notes were reviewed Vitals, input and output, medications and labs were reviewed Objective - Exam Narrative Exam: General: No acute distress HEENT: Oral mucosa moist Neck: Supple, no JVD Chest: Clear to auscultation bilaterally Heart: RRR, S1 and S2, no pericardial rub Abdomen: Soft, nontender, no renal bruit Extremity: No peripheral cyanosis, edema. LE dressing noted. Neurological: Awake and alert Dermatology: No skin rash Psych: Calm and cooperative Musculoskeletal: No joint effusion Objective - Vital Signs Vital signs: Vital Signs - 12hr 08/07/20 08/07/20 08/07/20 00:09 04:28 06:24 Temperature 97.6 F Pulse Rate 77 72 Respiratory 22 18 Rate Blood Pressure 103/44 137/38 137/38 O2 Sat by Pulse 95 97 Oximetry 08/07/20 08/07/20 07:56 08:15 Temperature Pulse Rate 40 L Respiratory Rate Blood Pressure 87/32 O2 Sat by Pulse 80 L 99 Oximetry - Lab 08/07/20 08:56 08/07/20 04:56 Most recent lab results ABG pH 7.316 pH Units (7.350-7.450) L 07/29/20 12:55 ABG pCO2 48.6 mm Hg 07/29/20 12:55 ABG pO2 131.0 mm Hg (80.0-90.0) H 07/29/20 12:55 ABG HCO3 24.3 mmol/L (20.0-26.0) 07/29/20 12:55 ABG O2 Saturation 98.3 % (95.0-99.0) 07/29/20 12:55 Calcium 7.8 mg/dL (8.4-10.2) L 08/07/20 04:56 Medications & Allergies - Medications Allergies/Adverse Reactions: Allergies No Known Allergies Allergy (Verified 05/01/15 08:52) Home Medications: Home Medications Medication Instructions Recorded Confirmed Last Taken Type Calcium Acetate [Phoslo] 667 mg PO TID 07/24/20 07/24/20 Unknown History Fenofibrate 160 mg PO QDAY 07/24/20 07/24/20 Unknown History Gabapentin [Neurontin] 100 mg PO Q8HR 07/24/20 07/24/20 Unknown History HYDROcodone/ACETAMINOPHEN 1 each PO Q8HR PRN 07/24/20 07/24/20 Unknown History [Hydrocodone-Acetamin 5-300 mg] Losartan Potassium 100 mg PO QDAY 07/24/20 07/24/20 Unknown History Montelukast [Singulair] 10 mg PO QPM 07/24/20 07/24/20 Unknown History Sevelamer Carbonate [Renvela] 800 mg PO TIDWM 07/24/20 07/24/20 Unknown History Simvastatin 40 mg PO QDAY 07/24/20 07/24/20 Unknown History allopurinoL [Zyloprim] 100 mg PO QDAY 07/24/20 07/24/20 Unknown History traZODone [Desyrel] 50 mg PO QHS 07/24/20 07/24/20 Unknown History traZODone [Desyrel] 50 mg PO QHS 07/24/20 07/24/20 Unknown History Active Medications: Generic Name Dose Route Start Last Admin Trade Name Freq PRN Reason Stop Dose Admin Acetaminophen 650 mg 07/24/20 12:34 08/07/20 05:33 Acetaminophen 325 Mg Tab PO 650 mg Q4H PRN Administration Pain MILD(1-3)/Fever >100.5/ANDRADE Acetaminophen 650 mg 07/31/20 13:52 07/31/20 16:11 Acetaminophen 650 Mg Rect Supp [place] 650 mg Q4H PRN Administration Fever >101 Albuterol 2.5 mg 07/24/20 12:30 Albuterol 2.5 Mg/3 Ml Nebu IH Q4HRT PRN Shortness Of Breath Allopurinol 100 mg 07/25/20 10:00 08/06/20 15:13 Allopurinol 100 Mg Tab PO Not Given QDAY [facility] Aspirin 81 mg 07/30/20 16:00 08/06/20 15:12 Aspirin Ec 81 Mg Tab PO Not Given QDAY [facility] Calcium Acetate 667 mg 07/24/20 17:00 08/06/20 22:33 Calcium Acetate 667 Mg Cap PO Not Given TIDWM [facility] Carvedilol 6.25 mg 07/24/20 22:00 08/06/20 22:39 Carvedilol 6.25 Mg Tab PO Not Given BID [facility] Clopidogrel Bisulfate 75 mg 07/31/20 10:00 08/06/20 15:12 Clopidogrel 75 Mg Tab PO Not Given QDAY [facility] Dextrose 50 ml 07/31/20 08:37 08/05/20 00:55 Dextrose 50% In Water (25gm) 50 Ml Syringe IV 15 ml Q30MIN PRN Administration Hypoglycemia Protocol Doxazosin Mesylate 4 mg 07/26/20 10:00 08/06/20 15:12 Doxazosin 4 Mg Tab PO Not Given DAILY [facility] Fenofibrate 145 mg 07/25/20 10:00 08/06/20 15:13 Fenofibrate 145 Mg Tab PO Not Given DAILY [facility] Ferrous Sulfate 325 mg 07/24/20 22:00 08/06/20 22:39 Ferrous Sulfate 325 Mg Tab PO 325 mg BID [facility] Administration Fish Oil 1,000 mg 07/25/20 10:00 08/06/20 15:12 Rule-3 Fatty Acids/Fish Oil 1 Gram Cap PO Not Given DAILY [facility] Hydralazine HCl 50 mg 07/28/20 22:00 08/07/20 06:24 Hydralazine 25 Mg Tab PO 50 mg Q8HR [facility] Administration Hydralazine HCl 10 mg 07/28/20 16:22 08/02/20 08:46 Hydralazine 20 Mg/1 Ml Inj IV 10 mg Q6H PRN Administration Blood Pressure Dextrose 1,000 mls @ 30 mls/hr 07/31/20 12:00 08/06/20 23:48 D10w IV 75 mls/hr DIRECT [facility] Administration Ceftriaxone Sodium 1 gm in 50 mls @ 100 mls/hr 08/06/20 23:45 08/06/20 23:57 Rocephin/Ns 1 Gm/50 Ml IV 100 mls/hr Q24H [facility] Administration Protocol Norepinephrine 4 mg in 250 mls @ 7.5 mls/hr 08/07/20 09:39 Levophed Drip 4 Mg/Ns 250 Ml IV TITR [facility] Protocol 2 MCG/MIN Losartan Potassium 100 mg 07/25/20 10:00 08/06/20 15:12 Losartan 50 Mg Tab PO Not Given QDAY [facility] Montelukast Sodium 10 mg 07/24/20 18:00 08/06/20 22:34 Montelukast 10 Mg Tab PO Not Given QPM [facility] Multivit/Ca Carb/B Cmplx/FA/Prenat 1 cap 07/26/20 10:00 08/06/20 15:12 Folic Acid/Vit B Comp W-C 1 Mg (Renal Caps) PO Not Given QDAY [facility] Multivitamins/Minerals 1 each 07/25/20 10:00 08/06/20 15:13 Multivitamins,Ther W-Minerals Tab PO Not Given QDAY [facility] Ondansetron HCl 4 mg 07/24/20 12:00 Ondansetron 4 Mg/2 Ml Inj IV Q8H PRN Nausea And Vomiting Pravastatin Sodium 80 mg 07/24/20 22:00 08/06/20 22:32 Pravastatin 80 Mg Tab PO 80 mg QHS [facility] Administration Sevelamer Carbonate 800 mg 07/24/20 17:00 08/06/20 22:33 Sevelamer Carbonate 800 Mg Tab PO Not Given TIDWM [facility] Sodium Chloride 10 ml 07/24/20 12:30 08/06/20 22:32 Sodium Chloride 0.9% 10 Ml Flush Syringe IV 10 ml BID [facility] Administration Sodium Chloride 10 ml 07/24/20 12:30 07/24/20 12:39 Sodium Chloride 0.9% 10 Ml Flush Syringe IV 10 ml PRN PRN Administration LINE FLUSH
--- NOTE | 2020-08-07 10:49 | Vascular Lab Report ---
RIGHT LOWER EXTREMITY ARTERIAL DOPPLER INDICATION: Right lower extremity swelling after recent angioplasty of right lower extremity arteries. Evaluate f or pseudoaneurysm. COMPARISON: None available. FINDINGS: A right common femoral artery pseudoaneurysm measures 1.7 x 1.5 cm with a neck measuring 0.4 cm . The aneurysm is partially thrombosed. No organized hematoma is identified. There is moderate generalized edema. Expected color flow and peak systolic velocities and waveforms are seen along the right external alysa c, common femoral, superficial femoral and popliteal arteries. 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 Dr. Malhotra was present as this exam was performed. Signer Name: Jose Raul Lara MD Signed: 08/07/2020 10:44 AM Workstation Name: [id number]
--- NOTE | 2020-08-07 11:22 | XRay Report ---
XR chest 1V ap INDICATION / CLINICAL INFORMATION: sob. COMPARISON: 07/29/2020 FINDINGS: SUPPORT DEVICES: Right IJ central venous catheter is stable. HEART /PULMONARY VASCULATURE: Unchanged LUNGS / PLEURA: Stable right greater than left pleural parenchymal opacities. No pneumothorax. ADDITIONAL FINDINGS: No significant additional findings. IMPRESSION: No significant interval change in bilateral pleural-parenchymal opacities. Signer Name: Edvin Jasso MD Signed: 08/07/2020 11:17 AM Workstation Name: [id number]
--- NOTE | 2020-08-07 11:30 | Progress Note ---
Assessment and Plan Monitor in unit for now to see what BP does. In the event that we are in a bed crunch, likely ok to go back to floor If stable today, will transfer back out in am Continue nasal cannula, good sats. Subjective Date of service: 08/07/20 Principal diagnosis: Peripheral vascular disease with gangrene Interval history: Transferred back to the unit for the hypotension. However cuff pressures on the floor were wrong. Now normotensive. Objective Vital Signs - 12hr 08/07/20 08/07/20 08/07/20 00:09 04:28 06:24 Temperature 97.6 F Pulse Rate 77 72 Respiratory 22 18 Rate Blood Pressure 103/44 137/38 137/38 O2 Sat by Pulse 95 97 Oximetry 08/07/20 08/07/20 07:56 08:15 Temperature Pulse Rate 40 L Respiratory Rate Blood Pressure 87/32 O2 Sat by Pulse 80 L 99 Oximetry Constitutional: no acute distress, alert Eyes: non-icteric ENT: oropharynx moist Neck: supple Effort: normal Ascultation: Bilateral: clear (anteriorly) Cardiovascular: regular rate and rhythm (no mrg) Gastrointestinal: normoactive bowel sounds, soft Integumentary: other (dry gangrene 1st toe on L) Extremities: no cyanosis, no edema Neurologic: normal mental status, non-focal exam, pupils equal and round Psychiatric: mood appropriate, affect normal CBC and BMP: 08/07/20 08:56 08/07/20 04:56 ABG, PT/INR, D-dimer: ABG ABG pH 7.316 pH Units (7.350-7.450) L 07/29/20 12:55 ABG pCO2 48.6 mm Hg 07/29/20 12:55 ABG pO2 131.0 mm Hg (80.0-90.0) H 07/29/20 12:55 ABG O2 Saturation 98.3 % (95.0-99.0) 07/29/20 12:55 PT/INR, D-dimer PT 13.9 Sec. (12.2-14.9) 08/06/20 04:56 INR 1.08 (0.87-1.13) 08/06/20 04:56 Abnormal lab findings: Abnormal Labs 07/24/20 07/24/20 07/24/20 08:40 08:40 08:40 WBC 11.3 H RBC 3.40 L Hgb 11.0 L Hct 33.0 L MCV 97 H RDW 15.6 H Plt Count Lymph % (Auto) [place] % (Auto) Lymph # (Auto) Seg Neutrophils % Seg Neuts % (Manual) Lymphocytes % (Manual) Seg Neutrophils # Seg Neutrophils # Man Monocytes # (Manual) APTT 45.0 H ABG pH ABG pO2 ABG Hemoglobin Sodium Potassium Chloride Carbon Dioxide BUN 38 H Creatinine 4.7 H Glucose POC Glucose Calcium AST Total Protein Albumin Prealbumin Vitamin B12 Crossmatch 07/24/20 07/24/20 07/24/20 15:41 15:57 20:52 WBC RBC Hgb Hct MCV RDW Plt Count Lymph % (Auto) [place] % (Auto) Lymph # (Auto) Seg Neutrophils % Seg Neuts % (Manual) Lymphocytes % (Manual) Seg Neutrophils # Seg Neutrophils # Man Monocytes # (Manual) APTT ABG pH ABG pO2 ABG Hemoglobin Sodium Potassium Chloride Carbon Dioxide BUN Creatinine Glucose POC Glucose 18 L 128 H 108 H Calcium AST Total Protein Albumin Prealbumin Vitamin B12 Crossmatch 07/25/20 07/25/20 07/25/20 05:42 05:42 07:43 WBC 11.4 H RBC 3.02 L Hgb 9.5 L Hct 29.8 L MCV 99 H RDW 15.9 H Plt Count Lymph % (Auto) 9.0 L [place] % (Auto) Lymph # (Auto) 1.0 L Seg Neutrophils % 82.6 H Seg Neuts % (Manual) Lymphocytes % (Manual) Seg Neutrophils # 9.4 H Seg Neutrophils # Man Monocytes # (Manual) APTT ABG pH ABG pO2 ABG Hemoglobin Sodium Potassium 5.1 H Chloride Carbon Dioxide BUN 53 H Creatinine 6.1 H Glucose 122 H POC Glucose 108 H Calcium AST Total Protein Albumin Prealbumin Vitamin B12 Crossmatch 07/25/20 07/25/20 07/26/20 11:18 21:17 11:35 WBC RBC Hgb Hct MCV RDW Plt Count Lymph % (Auto) [place] % (Auto) Lymph # (Auto) Seg Neutrophils % Seg Neuts % (Manual) Lymphocytes % (Manual) Seg Neutrophils # Seg Neutrophils # Man Monocytes # (Manual) APTT ABG pH ABG pO2 ABG Hemoglobin Sodium Potassium Chloride Carbon Dioxide BUN Creatinine Glucose POC Glucose 133 H 68 L 45 L Calcium AST Total Protein Albumin Prealbumin Vitamin B12 Crossmatch 07/26/20 07/26/20 07/26/20 12:27 12:51 16:27 WBC RBC Hgb Hct MCV RDW Plt Count Lymph % (Auto) [place] % (Auto) Lymph # (Auto) Seg Neutrophils % Seg Neuts % (Manual) Lymphocytes % (Manual) Seg Neutrophils # Seg Neutrophils # Man Monocytes # (Manual) APTT ABG pH ABG pO2 ABG Hemoglobin Sodium Potassium Chloride Carbon Dioxide BUN Creatinine Glucose POC Glucose 65 L 124 H 52 L Calcium AST Total Protein Albumin Prealbumin Vitamin B12 Crossmatch 07/26/20 07/27/20 07/27/20 18:13 05:21 05:21 WBC 11.5 H RBC 3.16 L Hgb 10.0 L Hct 29.8 L MCV 95 H RDW Plt Count Lymph % (Auto) [place] % (Auto) Lymph # (Auto) Seg Neutrophils % Seg Neuts % (Manual) Lymphocytes % (Manual) Seg Neutrophils # Seg Neutrophils # Man Monocytes # (Manual) APTT ABG pH ABG pO2 ABG Hemoglobin Sodium Potassium Chloride Carbon Dioxide BUN 45 H Creatinine 5.6 H Glucose POC Glucose 147 H Calcium AST Total Protein Albumin Prealbumin Vitamin B12 Crossmatch 07/27/20 07/27/20 07/27/20 07:37 09:10 16:25 WBC RBC Hgb Hct MCV RDW Plt Count Lymph % (Auto) [place] % (Auto) Lymph # (Auto) Seg Neutrophils % Seg Neuts % (Manual) Lymphocytes % (Manual) Seg Neutrophils # Seg Neutrophils # Man Monocytes # (Manual) APTT ABG pH ABG pO2 ABG Hemoglobin Sodium Potassium Chloride Carbon Dioxide BUN Creatinine Glucose POC Glucose 41 L 129 H Calcium AST Total Protein Albumin Prealbumin 0.116 L Vitamin B12 Crossmatch 07/27/20 07/27/20 07/28/20 16:25 21:16 11:41 WBC RBC Hgb Hct MCV RDW Plt Count Lymph % (Auto) [place] % (Auto) Lymph # (Auto) Seg Neutrophils % Seg Neuts % (Manual) Lymphocytes % (Manual) Seg Neutrophils # Seg Neutrophils # Man Monocytes # (Manual) APTT ABG pH ABG pO2 ABG Hemoglobin Sodium Potassium Chloride Carbon Dioxide BUN Creatinine Glucose POC Glucose 123 H 117 H Calcium AST Total Protein Albumin Prealbumin Vitamin B12 980.0 H Crossmatch 07/28/20 07/28/20 07/29/20 15:47 22:07 07:42 WBC RBC Hgb Hct MCV RDW Plt Count Lymph % (Auto) [place] % (Auto) Lymph # (Auto) Seg Neutrophils % Seg Neuts % (Manual) Lymphocytes % (Manual) Seg Neutrophils # Seg Neutrophils # Man Monocytes # (Manual) APTT ABG pH ABG pO2 ABG Hemoglobin Sodium Potassium Chloride Carbon Dioxide BUN Creatinine Glucose POC Glucose 148 H 119 H 106 H Calcium AST Total Protein Albumin Prealbumin Vitamin B12 Crossmatch 07/29/20 07/29/20 07/29/20 11:08 12:55 22:46 WBC RBC Hgb Hct MCV RDW Plt Count Lymph % (Auto) [place] % (Auto) Lymph # (Auto) Seg Neutrophils % Seg Neuts % (Manual) Lymphocytes % (Manual) Seg Neutrophils # Seg Neutrophils # Man Monocytes # (Manual) APTT ABG pH 7.316 L ABG pO2 131.0 H ABG Hemoglobin 9.4 L Sodium Potassium Chloride Carbon Dioxide BUN Creatinine Glucose POC Glucose 117 H 125 H Calcium AST Total Protein Albumin Prealbumin Vitamin B12 Crossmatch 07/30/20 07/30/20 07/30/20 04:17 04:17 07:50 WBC RBC 2.95 L Hgb 9.4 L Hct 28.4 L MCV 96 H RDW Plt Count Lymph % (Auto) [place] % (Auto) Lymph # (Auto) Seg Neutrophils % Seg Neuts % (Manual) Lymphocytes % (Manual) Seg Neutrophils # Seg Neutrophils # Man Monocytes # (Manual) APTT ABG pH ABG pO2 ABG Hemoglobin Sodium Potassium Chloride Carbon Dioxide BUN 46 H Creatinine 5.8 H Glucose POC Glucose 47 L Calcium 8.3 L AST Total Protein Albumin Prealbumin Vitamin B12 Crossmatch 07/30/20 07/30/20 07/31/20 16:33 21:25 07:26 WBC RBC Hgb Hct MCV RDW Plt Count Lymph % (Auto) [place] % (Auto) Lymph # (Auto) Seg Neutrophils % Seg Neuts % (Manual) Lymphocytes % (Manual) Seg Neutrophils # Seg Neutrophils # Man Monocytes # (Manual) APTT ABG pH ABG pO2 ABG Hemoglobin Sodium Potassium 5.4 H Chloride Carbon Dioxide BUN 50 H Creatinine 5.8 H Glucose 112 H POC Glucose 123 H 59 L Calcium 8.1 L AST Total Protein Albumin Prealbumin Vitamin B12 Crossmatch 03/02/1207/31/20 07/31/20 09:03 10:47 14:09 WBC RBC 2.73 L Hgb 8.7 L Hct 26.6 L MCV 97 H RDW 15.3 H Plt Count Lymph % (Auto) [place] % (Auto) 8.7 H Lymph # (Auto) Seg Neutrophils % 74.7 H Seg Neuts % (Manual) Lymphocytes % (Manual) Seg Neutrophils # Seg Neutrophils # Man Monocytes # (Manual) APTT ABG pH ABG pO2 ABG Hemoglobin Sodium Potassium Chloride Carbon Dioxide BUN 29 H Creatinine 4.3 H Glucose 106 H POC Glucose 48 L Calcium 8.0 L AST Total Protein Albumin Prealbumin Vitamin B12 Crossmatch 07/31/20 07/31/20 08/01/20 16:01 20:04 10:42 WBC RBC Hgb Hct MCV RDW Plt Count Lymph % (Auto) [place] % (Auto) Lymph # (Auto) Seg Neutrophils % Seg Neuts % (Manual) Lymphocytes % (Manual) Seg Neutrophils # Seg Neutrophils # Man Monocytes # (Manual) APTT ABG pH ABG pO2 ABG Hemoglobin Sodium Potassium Chloride Carbon Dioxide BUN Creatinine Glucose POC Glucose 69 L 111 H 109 H Calcium AST Total Protein Albumin Prealbumin Vitamin B12 Crossmatch 08/01/20 08/02/20 08/03/20 13:49 08:45 07:55 WBC RBC Hgb Hct MCV RDW Plt Count Lymph % (Auto) [place] % (Auto) Lymph # (Auto) Seg Neutrophils % Seg Neuts % (Manual) Lymphocytes % (Manual) Seg Neutrophils # Seg Neutrophils # Man Monocytes # (Manual) APTT ABG pH ABG pO2 ABG Hemoglobin Sodium 134 L Potassium Chloride Carbon Dioxide BUN 38 H Creatinine 5.7 H Glucose 105 H POC Glucose 69 L 38 L Calcium 8.2 L AST Total Protein Albumin Prealbumin Vitamin B12 Crossmatch 08/03/20 08/03/20 08/03/20 08:03 11:32 12:30 WBC RBC Hgb Hct MCV RDW Plt Count Lymph % (Auto) [place] % (Auto) Lymph # (Auto) Seg Neutrophils % Seg Neuts % (Manual) Lymphocytes % (Manual) Seg Neutrophils # Seg Neutrophils # Man Monocytes # (Manual) APTT ABG pH ABG pO2 ABG Hemoglobin Sodium Potassium Chloride Carbon Dioxide BUN Creatinine Glucose POC Glucose 223 H 136 H 119 H Calcium AST Total Protein Albumin Prealbumin Vitamin B12 Crossmatch 08/03/20 08/04/20 08/04/20 21:38 07:32 08:25 WBC RBC Hgb Hct MCV RDW Plt Count Lymph % (Auto) [place] % (Auto) Lymph # (Auto) Seg Neutrophils % Seg Neuts % (Manual) Lymphocytes % (Manual) Seg Neutrophils # Seg Neutrophils # Man Monocytes # (Manual) APTT ABG pH ABG pO2 ABG Hemoglobin Sodium Potassium Chloride Carbon Dioxide BUN Creatinine Glucose POC Glucose 133 H 54 L 126 H Calcium AST Total Protein Albumin Prealbumin Vitamin B12 Crossmatch 08/04/20 08/04/20 08/04/20 12:06 12:06 15:51 WBC RBC 2.63 L Hgb 8.4 L Hct 25.4 L MCV 97 H RDW Plt Count Lymph % (Auto) 7.6 L [place] % (Auto) Lymph # (Auto) 0.6 L Seg Neutrophils % 81.8 H Seg Neuts % (Manual) Lymphocytes % (Manual) Seg Neutrophils # Seg Neutrophils # Man Monocytes # (Manual) APTT ABG pH ABG pO2 ABG Hemoglobin Sodium 132 L Potassium Chloride 96.8 L Carbon Dioxide BUN Creatinine 4.0 H Glucose 131 H POC Glucose 126 H Calcium 7.8 L AST Total Protein 5.3 L Albumin 2.2 L Prealbumin Vitamin B12 Crossmatch 08/05/20 08/05/20 08/05/20 09:34 09:34 21:22 WBC RBC 2.54 L Hgb 8.0 L Hct 24.3 L MCV 95 H RDW 15.3 H Plt Count Lymph % (Auto) 11.3 L [place] % (Auto) 7.7 H Lymph # (Auto) 1.0 L Seg Neutrophils % 77.6 H Seg Neuts % (Manual) Lymphocytes % (Manual) Seg Neutrophils # Seg Neutrophils # Man Monocytes # (Manual) APTT ABG pH ABG pO2 ABG Hemoglobin Sodium 132 L Potassium Chloride 95.2 L Carbon Dioxide BUN 24 H Creatinine 5.0 H Glucose 106 H POC Glucose 50 L Calcium 8.0 L AST Total Protein 5.0 L Albumin 2.1 L Prealbumin Vitamin B12 Crossmatch 08/06/20 08/06/20 08/07/20 04:56 04:56 04:56 WBC 23.6 H RBC 2.55 L 1.82 L Hgb 8.1 L 5.8 L* Hct 24.5 L 17.5 L* D MCV 96 H 97 H RDW 15.4 H Plt Count 129 L Lymph % (Auto) 10.9 L [place] % (Auto) 7.9 H Lymph # (Auto) 1.1 L Seg Neutrophils % 79.0 H Seg Neuts % (Manual) 89.0 H Lymphocytes % (Manual) 6.0 L Seg Neutrophils # 8.2 H Seg Neutrophils # Man 21.0 H Monocytes # (Manual) 1.2 H APTT ABG pH ABG pO2 ABG Hemoglobin Sodium 127 L Potassium Chloride 91.9 L Carbon Dioxide BUN 28 H Creatinine 5.8 H Glucose POC Glucose Calcium 7.9 L AST Total Protein 5.0 L Albumin 1.9 L Prealbumin Vitamin B12 Crossmatch 08/07/20 08/07/20 08/07/20 04:56 08:56 09:05 WBC RBC Hgb 6.6 L Hct 20.2 L MCV RDW Plt Count Lymph % (Auto) [place] % (Auto) Lymph # (Auto) Seg Neutrophils % Seg Neuts % (Manual) Lymphocytes % (Manual) Seg Neutrophils # Seg Neutrophils # Man Monocytes # (Manual) APTT ABG pH ABG pO2 ABG Hemoglobin Sodium 133 L Potassium Chloride 96.2 L Carbon Dioxide 31 H BUN Creatinine 3.7 H Glucose 132 H POC Glucose Calcium 7.8 L AST 43 H Total Protein 4.9 L Albumin 2.0 L Prealbumin Vitamin B12 Crossmatch See Detail
[2020-08-07] MEDS ORDERED: THROMBIN (RECOMBINANT) 5,000 UNIT VIAL TP SCH (14:00)
[2020-08-07] MEDS ORDERED: LIDOCAINE 2%/EPINEPHRINE 1:200,000 VIAL (20 ML) INFILTRATI ONE (14:00)
[2020-08-07] MEDS ORDERED: SODIUM CHLORIDE IRRI 500 ML 500 ML IR ONE (14:06)
[2020-08-07] MEDS ORDERED: LIDOCAINE (2%) 20 MG/1 ML VIAL 20 ML MDV INFILTRATI ONE (14:07)
[2020-08-07] MEDS ORDERED: LIDOCAINE 1%/EPINEPHRINE 1:100,000 VIAL (20 ML) INFILTRATI NR ×2 (14:15→14:45)
[2020-08-07] MEDS ORDERED: LIDOCAINE 2%/EPINEPHRINE 1:100,000 VIAL (20 ML) INFILTRATI ONE ×2 (14:27→14:37)
[2020-08-07] MEDS ORDERED: THROMBIN (RECOMBINANT) 5,000 UNIT VIAL TP ONE (14:33)
--- NOTE | 2020-08-07 14:57 | Post Operative Note ---
Date of procedure: 08/07/20 Pre-op diagnosis: Pseudoaneurysm right groin Post-op diagnosis: same Findings: Bilobed pseudoaneurysm was injected with thrombin, only tract remaining at the end of the procedure Procedure: 1. Ultrasound guided right common femoral artery pseudoaneurysm injection with thrombin x 2 lobes (total of 1000 units thrombin). Anesthesia: local Surgeon: RADHA CADENA Estimated blood loss: minimal Condition: stable Disposition: no change
--- NOTE | 2020-08-07 14:57 | Operative Report ---
Operative Report Operative Report: EXAM: 1. Ultrasound guided right common femoral artery pseudoaneurysm injection with thrombin x 2 lobes (total of 1000 units thrombin). DATE: 08/07/2020 [place] LINER: RADHA CADENA MD INDICATION: Right groin pseudoaneurysm with multiple lobes with associated small hematoma. MEDICATIONS: Please see nursing report for full details. DEVICES: 1000 units of thrombin CONTRAST: None PROCEDURE: The risks, benefits, and alternatives were discussed with the patient's son; telephone informed consent was obtained. The patient was brought to the [facility] and his right groin was prepped and draped in a sterile fashion. Chair Inspector was present during the evaluation, and sonography was performed of the right common femoral artery, superficial femoral artery, and profundofemoral artery demonstrating baseline waveforms and velocities. The bilobed pseudoaneurysm was then fully evaluated and there were 2 lobes each of which measured less than 2 cm individually. The more distal pseudoaneurysm was then evaluated with ultrasound and was less than 2 cm in size. Under direct ultrasound guidance, the pseudoaneurysm lobe was accessed with a 21-gauge micropuncture needle. Blood was aspirated. Afterwards, increments of 100 units of thrombin were injected until there was cessation of flow. This required 500 to 600 units of thrombin. The more distal pseudoaneurysm was completely thrombosed. The more proximal pseudoaneurysm was then evaluated with ultrasound and was less than 2 cm in size. Under direct ultrasound guidance, the pseudoaneurysm lobe was accessed with a 21-gauge micropuncture needle. Blood was aspirated. Afterwards, increments of 100 units of thrombin were injected until there was cessation of flow, and this required 400 to 500 units of thrombin. The more proximal pseudoaneurysm was completely thrombosed. I then evaluated the common femoral artery and there was a small pseudoaneurysm arising from the vessel which gave rise to the proximal and distal pseudoaneurysms. This area was less than 1 cm in size. Given how small this residual pseudoaneurysm was and given that the rest of the entire pseudoaneurysm was completely thrombosed, I decided the procedure was completed. We would watch the small pseudoaneurysm and assess it over the next few days to determine if repeat thrombin injection would be required. Repeat imaging of the common femoral artery superficial femoral artery and profunda femoral artery demonstrated similar baseline waveforms and velocities. Pressure bandage was then applied to the less than 1 cm pseudoaneurysm arising from the common femoral artery. FINDINGS: Please see procedure note above. IMPRESSION: Successful thrombin injection of the right common femoral artery pseudoaneurysm x2.
--- NOTE | 2020-08-07 14:59 | Event Note ---
Date: 08/07/20 Assessed patient this morning and noted right groin small hematoma with ultrasound demonstrating bilobed pseudoaneurysm. Mild decrease in hemoglobin noted from 8.1-6.6. Being transfused 2 units of packed red blood cells, appropriate. Patient had lower blood pressure this morning due to attempting to take blood pressure from his lower extremities instead of his upper extremities. Patient has severe peripheral vascular disease and thigh or calf blood pressures will be severely misleading. Only upper arm measurements will be accurate. Patient brought down to [facility] [employer] and pseudoaneurysm was injected with thrombin under ultrasound guidance causing resolution of the pseudoaneurysm with only a small amount of tract noted. Pressure dressing applied to the area. Can remove pressure dressing tomorrow. We will repeat arterial ultrasound tomorrow to ensure pseudoaneurysm occlusion. Doing well. Right groin pain has now resolved.
--- NOTE | 2020-08-07 15:33 | Vascular Lab Report ---
LIMITED RIGHT LOWER EXTREMITY ARTERIAL DOPPLER INDICATION: Guidance for thrombin injection of right common femoral artery pseudoaneurysm. COMPARISON: Right lower extremity arterial Doppler performed earlier today. FINDINGS: Limited sonography demonstrates needle access of the previously described right common femoral artery pseudoaneurysm with subsequent thrombin injection and thrombosis of the pseudoaneurysm. The common f emoral artery is patent after injection. No other significant interval changes. IMPRESSION: Limited sonography of the right lower extremity to guide thrombin injection of the previously describ ed pseudoaneurysm. Signer Name: Jose Raul Lara MD Signed: 08/07/2020 3:29 PM Workstation Name: [id number]
--- NOTE | 2020-08-07 17:05 | Progress Note ---
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 Now status post angiography with angioplasty of the distal femoral vessels Continue aspirin and Plavix Vascular surgery following s/p vascularization of bilateral upper extremities and left iliac system --Anemia, acute on chronic Transfused 2 units of packed RBC, monitor H&H --Hypotension, likely due to hypovolemia Continue D10W and initiate pressor as needed --Acute metabolic encephalopathy Improved CT head negative Continue to hold all pain medications and gabapentin Discontinued trazodone --Hypertension, hyperlipidemia/hypertriglyceridemia Hold BP meds as patient is hypertensive, continue Fenofibrate, statins --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 Sons number is Timmy Beckman --DVT prophylaxis SCD to bilateral lower extremities while in bed, prophylactic anticoagulation. The high probability of a clinically significant, sudden or life threatening deterioration of the system(respiratory, CVS, [employer]) required my full and direct attention, intervention and personal management. The aggregate critical care time was [35] minutes. This time is in addition to time spent performing reported procedures but includes the following: [x] Data Review and interpretation [x] Patient assessment and monitoring of vital signs [x] Documentation [x] Medication orders and management Brief history: 80 YO Male with ESRD on HD (M, W, F), HTN, DM, Vascular Dementia, Cerebral Atherosclerosis presents to ED with confusion. As per the patient's the patient has experienced increased weakness and confusion over the past 1 month with increased bedbound status. In the ER, patient found to have end-stage renal disease, left foot cellulitis complicated by systemic inflammatory response syndrome, as well as peripheral vascular disease. Patient admitted to medical floor and initiated on IV antibiotic therapy. Nephrology and vascular team consulted in ED. CT: Head: Negative for acute pathology. Daily clinical course: 07/25: Discussed with the IR, patient with new onset Altered mental status from the last time they saw the patient. Will begin work-up for possible underlying sepsis etiology or source unknown at this time. Will obtain ID consulted and Neurology. Continue abx, attempted to reach family. Concern for stroke is low but considering hx of vasculopathy will obtain Neurology Will also obtain wound consultation. 07/26: Some improvement noted with initiation of antibiotics. We will continue current management patient continues on hemodialysis. Will await further vascular improvement as patient is beginning to show some improvement. Discussed with case management. Apparently the person that came with the patient is not the patient's but a caregiver H&P portion of this note has been corrected. Continue wound care and every 2 hours turns. 07/27: Continue current management plan. Vascular to re-evaluate. Continue abx. MRI with no acute pathology. Agree with the D5 as patient still has some intermittent confusion. Continue to monitor. Speech evaluation for swallow management. 07/28: Patient clinically stable, continue supportive care, abx, awaiting full vascular input. cONTINUE D5 for now. 07/29: We will give patient dose of Lasix, get a chest x-ray. Discussed with nursing staff could be that the patient was appear hypoxic due to cold extremities. Will obtain an ABG. We will also obtain a pulmonary consult for clearance for anticipated vascular procedure in a.m. 07/30: Noted hypoglycemia this morning we will give D50 and amp. Patient is for procedure today. Discussed with vascular. Per discussion with nursing saturation has improved. Pulmonary input is noted. He was admitted for digital gangrene on multiple digits both fingers and toes. Was also noted to be septic requiring treatment which has led to improvement in his mental status. 07/31. Now status post angiography and angioplasty of distal femoral arteries. Now on antiplatelets. He has been having episodes of hypoglycemia. Started him on D10 water. Continue to monitor closely for now. CT head ordered to rule out any CVA though not likely. Vascular surgery following. 08/01. Patient remains lethargic. Discontinued pain medications and gabapentin. On IV antibiotics. Started on D10 water yesterday for hypoglycemia. If lethargy does not improve, will place an NG tube. CT head negative for any stroke. 08/02. More responsive today. Still gets agitated and pulling on his IV lines so was placed on restraints. Needs to have a repeat swallow evaluation. Blood glucose is table. 08/03. Responsive today. Alert and oriented x2. Will get vascular to reevaluate. Needs to have revascularization of LE vessels as per vascular. Passed swallow evaluation yesterday and has been started on a diet. 08/04. Plan for vascularization of the extremities as per vascular. 08/05. No complaints today. Plan for revascularization tomorrow. NPO after midnight 08/06. Plan for revascularization today. He will need placement but PT yet to see. 08/07: Status post revascularization yesterday. H&H dropped today to 5.6. Patient noted to form pseudoaneurysm at the revascularization area. Patient also noted to have low BP -ordered for packed RBC and transferred to ICU for close monitoring. S/p HD today. Continue D10 W Subjective Date of service: 08/07/20 Principal diagnosis: Peripheral vascular disease with gangrene Interval history: Patient seen and examined Blood pressure was documented very low this morning with low H&H Transferred to ICU Status post HD at bedside and received 2 units of packed RBC Objective - Exam Narrative Exam: GENERAL: Drowsy HEAD: No signs of head trauma. EYES: Pupils are equal. Extraocular motions intact. MOUTH: Oropharynx is normal. NECK: No adenopathy, no JVD. CHEST: Chest with diminished breath sounds bilaterally. No wheezes, rales, or rhonchi. CARDIAC: normal S1 and S2, without murmurs, gallops, or rubs. ABDOMEN: Soft, non tender and non distended. No rebound or guarding, and no masses palpated. Bowel Sounds normal. MUSCULOSKELETAL: LLE: Gangrenous looking big toe, proximal area of the leg feels warm to touch. NEUROLOGIC EXAM: Appears very lethargic and drowsy today SKIN: No obvious lesions - Constitutional Vitals: Vital Signs - 12hr 08/07/20 08/07/20 08/07/20 06:24 07:56 08:15 Temperature Pulse Rate 40 L Respiratory Rate Blood Pressure 137/38 87/32 O2 Sat by Pulse 80 L 99 Oximetry 08/07/20 08/07/20 08/07/20 08:54 10:00 10:52 Temperature Pulse Rate 73 76 Respiratory 16 Rate Blood Pressure 99/29 O2 Sat by Pulse 99 100 100 Oximetry 08/07/20 08/07/20 08/07/20 11:01 11:15 11:31 Temperature Pulse Rate 79 80 79 Respiratory 17 18 27 H Rate Blood Pressure 152/70 148/45 O2 Sat by Pulse 100 100 100 Oximetry 08/07/20 08/07/20 08/07/20 12:00 12:33 12:43 Temperature 98.2 F Pulse Rate 74 75 Respiratory 20 20 Rate Blood Pressure 162/34 184/65 O2 Sat by Pulse 100 100 Oximetry 08/07/20 08/07/20 08/07/20 12:56 13:01 16:00 Temperature 98.0 F Pulse Rate 75 75 Respiratory 18 18 Rate Blood Pressure 164/42 179/51 O2 Sat by Pulse 100 100 Oximetry - Labs CBC & Chem 7: 08/08/20 05:04 08/08/20 05:04 Labs: Abnormal lab results 08/07/20 08/07/20 08/07/20 Range/Units 04:56 04:56 08:56 WBC 23.6 H (4.5-11.0) K/mm3 RBC 1.82 L (3.65-5.03) M/mm3 Hgb 5.8 L* 6.6 L (11.8-15.2) gm/dl Hct 17.5 L* D 20.2 L (35.5-45.6) % MCV 97 H (84-94) fl Seg Neuts % (Manual) 89.0 H (40.0-70.0) % Lymphocytes % (Manual) 6.0 L (13.4-35.0) % Seg Neutrophils # Man 21.0 H (1.8-7.7) K/mm3 Monocytes # (Manual) 1.2 H (0.0-0.8) K/mm3 Sodium 133 L (137-145) mmol/L Chloride 96.2 L (98-107) mmol/L Carbon Dioxide 31 H (22-30) mmol/L Creatinine 3.7 H (0.8-1.3) mg/dL Glucose 132 H (75-100) mg/dL Calcium 7.8 L (8.4-10.2) mg/dL AST 43 H (5-40) units/L Total Protein 4.9 L (6.3-8.2) g/dL Albumin 2.0 L (3.9-5) g/dL Crossmatch 08/07/20 Range/Units 09:05 WBC (4.5-11.0) K/mm3 RBC (3.65-5.03) M/mm3 Hgb (11.8-15.2) gm/dl Hct (35.5-45.6) % MCV (84-94) fl Seg Neuts % (Manual) (40.0-70.0) % Lymphocytes % (Manual) (13.4-35.0) % Seg Neutrophils # Man (1.8-7.7) K/mm3 Monocytes # (Manual) (0.0-0.8) K/mm3 Sodium (137-145) mmol/L Chloride (98-107) mmol/L Carbon Dioxide (22-30) mmol/L Creatinine (0.8-1.3) mg/dL Glucose (75-100) mg/dL Calcium (8.4-10.2) mg/dL AST (5-40) units/L Total Protein (6.3-8.2) g/dL Albumin (3.9-5) g/dL Crossmatch See Detail
[2020-08-07] MEDS: CALCIUM ACETATE 667 MG CAP PO SCH ×2 (19:17→19:18)
[2020-08-07] MEDS: MONTELUKAST 10 MG TAB PO SCH (19:18)
[2020-08-07] MEDS: SEVELAMER CARBONATE 800 MG TAB PO SCH (19:18)
[2020-08-07] MEDS: LOSARTAN 50 MG TAB PO SCH (19:22)
[2020-08-07] MEDS: DOXAZOSIN 4 MG TAB PO SCH (19:22)
[2020-08-07] MEDS: carvediloL 6.25 MG TAB PO SCH ×2 (19:22→21:32)
[2020-08-07] MEDS: FERROUS SULFATE 325 MG TAB PO SCH ×2 (19:22→21:32)
[2020-08-07] MEDS: OMEGA-3 FATTY ACIDS/FISH OIL 1 GRAM CAP PO SCH (19:23)
[2020-08-07] MEDS: FOLIC ACID/VIT B COMP W-C 1 MG (RENAL CAPS) PO SCH (19:23)
[2020-08-07] MEDS: FENOFIBRATE 145 MG TAB PO SCH (19:23)
[2020-08-07] MEDS: ASPIRIN EC 81 MG TAB PO SCH (19:23)
[2020-08-07] MEDS: MULTIVITAMINS,THER W-MINERALS TAB PO SCH (19:23)
[2020-08-07] MEDS: CLOPIDOGREL 75 MG TAB PO SCH (19:23)
[2020-08-07] MEDS: BUTT PASTE 50 APPLIC/100 GM JAR TP SCH ×2 (19:24→21:34)
[2020-08-07] MEDS: allopurinoL 100 MG TAB PO SCH (19:24)
[2020-08-07] MEDS: PRAVASTATIN 80 MG TAB PO SCH (21:35)
[2020-08-08] MEDS: cefTRIAXone/NS 1 GM/50 ML 1 GM/50 ML BAG IV SCH ×2 (00:08→22:44)
[2020-08-08] MEDS: DEXTROSE 50% IN WATER (25GM) 50 ML SYRINGE IV PRN ×2 (01:12→05:22)
[2020-08-08 05:30] LABS: Basophils # (Auto) 0.1 K/mm3 (0.0-0.1); Basophils % (Auto) 0.7 % (0.0-1.8); Eosinophils # (Auto) 0.1 K/mm3 (0.0-0.4); Eosinophils % (Auto) 0.6 % (0.0-4.3); Hematocrit 27.5 % (35.5-45.6); Hemoglobin 9.4 gm/dl (11.8-15.2); Lymphocytes # (Auto) 0.9 K/mm3 (1.2-5.4); Lymphocytes % (Auto) 7.1 % (13.4-35.0); Mean Corpuscular HGB Conc 34 % (32-34); Mean Corpuscular Volume 91 fl (84-94); Monocytes # (Auto) 0.8 K/mm3 (0.0-0.8); Monocytes % (Auto) 6.5 % (0.0-7.3); Platelet Count 142 K/mm3 (140-440); Red Blood Count 3.02 M/mm3 (3.65-5.03); Red Cell Distribution Width 17.2 % (13.2-15.2)
[2020-08-08 05:48] LABS: Albumin 2.2 g/dL (3.9-5); Calcium 8.3 mg/dL (8.4-10.2)
[2020-08-08] MEDS: hydrALAZINE 25 MG TAB PO SCH ×3 (06:11→21:32)
[2020-08-08] MEDS: SEVELAMER CARBONATE 800 MG TAB PO SCH ×3 (07:48→16:59)
[2020-08-08] MEDS: CALCIUM ACETATE 667 MG CAP PO SCH ×4 (07:48→16:59)
[2020-08-08] MEDS: DEXTROSE 10% IN WATER 1,000 ML IV SCH (09:28)
[2020-08-08] MEDS: ALBUTEROL 2.5 MG/3 ML NEBU IH PRN ×2 (10:35→17:23)
--- NOTE | 2020-08-08 11:39 | Progress Note ---
Subjective Date of service: 08/08/20 Principal diagnosis: Peripheral vascular disease with gangrene Interval history: Assessment: * ESRD * HTN * PVD * Gangrene * Anemia in ESRD Plan: * Continue MWF * uf as tolerated, Sodium noted, fluid restriction * renal diet * dialysis access is a central venous catheter. Site c/d/i * Continue antihypertensives * Continue epogen q treatment * Keep MAP>65 * Diet and nutrition: Patient needs to be on high protein diet - 1.2-1.4 g/kg/d * Multiple other complex comorbidities currently being managed by primary team * peripheral arterial disease/gangrene, vascular note reviewed. Plans for revascularization noted * Acute encephalopathy - improving, pain medications discontinued. CT head negative for stroke. Management per primary. * Will continue to follow and make recommendation for renal standpoint Subjective Date of service: 08/05/20 Principal diagnosis: Peripheral vascular disease with gangrene Interval history: More alert today Patient was seen for his renal issues Nursing, interdisciplinary and consult notes were reviewed Vitals, input and output, medications and labs were reviewed Objective - Exam Narrative Exam: General: No acute distress HEENT: Oral mucosa moist Neck: Supple, no JVD Chest: Clear to auscultation bilaterally Heart: RRR, S1 and S2, no pericardial rub Abdomen: Soft, nontender, no renal bruit Extremity: No peripheral cyanosis, edema. LE dressing noted. Neurological: Awake and alert Dermatology: No skin rash Psych: Calm and cooperative Musculoskeletal: No joint effusion Objective - Vital Signs Vital signs: Vital Signs - 12hr 08/08/20 08/08/20 08/08/20 00:00 00:01 01:01 Temperature 98.6 F Pulse Rate 76 74 Pulse Rate [ Anterior Bilateral Throughout] Respiratory 22 21 23 Rate Respiratory Rate [Anterior Bilateral Throughout] Blood Pressure 136/42 153/59 O2 Sat by Pulse 100 100 100 Oximetry O2 Sat by Pulse Oximetry [ Anterior Bilateral Throughout] 08/08/20 08/08/20 08/08/20 02:01 03:01 03:37 Temperature 98.8 F Pulse Rate 75 75 Pulse Rate [ Anterior Bilateral Throughout] Respiratory 12 16 Rate Respiratory Rate [Anterior Bilateral Throughout] Blood Pressure 165/47 137/56 O2 Sat by Pulse 100 100 Oximetry O2 Sat by Pulse Oximetry [ Anterior Bilateral Throughout] 08/08/20 08/08/20 08/08/20 04:00 04:01 05:01 Temperature Pulse Rate 72 74 Pulse Rate [ Anterior Bilateral Throughout] Respiratory 22 16 Rate Respiratory Rate [Anterior Bilateral Throughout] Blood Pressure 141/48 107/69 O2 Sat by Pulse 100 100 100 Oximetry O2 Sat by Pulse Oximetry [ Anterior Bilateral Throughout] 08/08/20 08/08/20 08/08/20 06:01 06:11 07:00 Temperature Pulse Rate 76 75 76 Pulse Rate [ Anterior Bilateral Throughout] Respiratory 16 22 Rate Respiratory Rate [Anterior Bilateral Throughout] Blood Pressure 107/69 97/58 96/50 O2 Sat by Pulse 99 100 Oximetry O2 Sat by Pulse Oximetry [ Anterior Bilateral Throughout] 08/08/20 08/08/20 08/08/20 08:00 09:00 09:42 Temperature 99.0 F 97.8 F Pulse Rate 69 69 79 Pulse Rate [ Anterior Bilateral Throughout] Respiratory 15 19 20 Rate Respiratory Rate [Anterior Bilateral Throughout] Blood Pressure 137/50 149/56 107/67 O2 Sat by Pulse 100 99 Oximetry O2 Sat by Pulse 100 Oximetry [ Anterior Bilateral Throughout] 08/08/20 08/08/20 08/08/20 09:45 10:00 10:15 Temperature Pulse Rate 77 79 75 Pulse Rate [ Anterior Bilateral Throughout] Respiratory Rate Respiratory Rate [Anterior Bilateral Throughout] Blood Pressure 112/64 117/66 110/57 O2 Sat by Pulse Oximetry O2 Sat by Pulse Oximetry [ Anterior Bilateral Throughout] 08/08/20 08/08/20 08/08/20 10:30 10:35 10:45 Temperature Pulse Rate 75 75 Pulse Rate [ 75 Anterior Bilateral Throughout] Respiratory Rate Respiratory 20 Rate [Anterior Bilateral Throughout] Blood Pressure 145/59 108/49 O2 Sat by Pulse Oximetry O2 Sat by Pulse Oximetry [ Anterior Bilateral Throughout] 08/08/20 08/08/20 08/08/20 10:50 11:00 11:15 Temperature Pulse Rate 75 71 Pulse Rate [ Anterior Bilateral Throughout] Respiratory Rate Respiratory Rate [Anterior Bilateral Throughout] Blood Pressure 94/48 98/46 O2 Sat by Pulse 100 Oximetry O2 Sat by Pulse Oximetry [ Anterior Bilateral Throughout] 08/08/20 11:30 Temperature Pulse Rate 77 Pulse Rate [ Anterior Bilateral Throughout] Respiratory Rate Respiratory Rate [Anterior Bilateral Throughout] Blood Pressure 92/64 O2 Sat by Pulse Oximetry O2 Sat by Pulse Oximetry [ Anterior Bilateral Throughout] - Lab 08/08/20 05:04 08/08/20 05:04 Most recent lab results ABG pH 7.316 pH Units (7.350-7.450) L 07/29/20 12:55 ABG pCO2 48.6 mm Hg 07/29/20 12:55 ABG pO2 131.0 mm Hg (80.0-90.0) H 07/29/20 12:55 ABG HCO3 24.3 mmol/L (20.0-26.0) 07/29/20 12:55 ABG O2 Saturation 98.3 % (95.0-99.0) 07/29/20 12:55 Calcium 8.3 mg/dL (8.4-10.2) L 08/08/20 05:04 Medications & Allergies - Medications Allergies/Adverse Reactions: Allergies No Known Allergies Allergy (Verified 05/01/15 08:52) Home Medications: Home Medications Medication Instructions Recorded Confirmed Last Taken Type Calcium Acetate [Phoslo] 667 mg PO TID 07/24/20 07/24/20 Unknown History Fenofibrate 160 mg PO QDAY 07/24/20 07/24/20 Unknown History Gabapentin [Neurontin] 100 mg PO Q8HR 07/24/20 07/24/20 Unknown History HYDROcodone/ACETAMINOPHEN 1 each PO Q8HR PRN 07/24/20 07/24/20 Unknown History [Hydrocodone-Acetamin 5-300 mg] Losartan Potassium 100 mg PO QDAY 07/24/20 07/24/20 Unknown History Montelukast [Singulair] 10 mg PO QPM 07/24/20 07/24/20 Unknown History Sevelamer Carbonate [Renvela] 800 mg PO TIDWM 07/24/20 07/24/20 Unknown History Simvastatin 40 mg PO QDAY 07/24/20 07/24/20 Unknown History allopurinoL [Zyloprim] 100 mg PO QDAY 07/24/20 07/24/20 Unknown History traZODone [Desyrel] 50 mg PO QHS 07/24/20 07/24/20 Unknown History traZODone [Desyrel] 50 mg PO QHS 07/24/20 07/24/20 Unknown History Active Medications: Generic Name Dose Route Start Last Admin Trade Name Freq PRN Reason Stop Dose Admin Acetaminophen 650 mg 07/24/20 12:34 08/07/20 05:33 Acetaminophen 325 Mg Tab PO 650 mg Q4H PRN Administration Pain MILD(1-3)/Fever >100.5/ANDRADE Acetaminophen 650 mg 07/31/20 13:52 07/31/20 16:11 Acetaminophen 650 Mg Rect Supp [place] 650 mg Q4H PRN Administration Fever >101 Albuterol 2.5 mg 07/24/20 12:30 08/08/20 10:35 Albuterol 2.5 Mg/3 Ml Nebu IH 2.5 mg Q4HRT PRN Administration Shortness Of Breath Allopurinol 100 mg 07/25/20 10:00 08/07/20 19:24 Allopurinol 100 Mg Tab PO Not Given QDAY [facility] Aspirin 81 mg 07/30/20 16:00 08/07/20 19:23 Aspirin Ec 81 Mg Tab PO Not Given QDAY [facility] Calcium Acetate 667 mg 07/24/20 17:00 08/08/20 07:48 Calcium Acetate 667 Mg Cap PO 667 mg TIDWM SADAF Administration Carvedilol 6.25 mg 07/24/20 22:00 08/07/20 21:32 Carvedilol 6.25 Mg Tab PO 6.25 mg BID SADAF Administration Clopidogrel Bisulfate 75 mg 07/31/20 10:00 08/07/20 19:23 Clopidogrel 75 Mg Tab PO Not Given QDAY [facility] Dextrose 50 ml 07/31/20 08:37 08/08/20 05:22 Dextrose 50% In Water (25gm) 50 Ml Syringe IV 15 ml Q30MIN PRN Administration Hypoglycemia Protocol Doxazosin Mesylate 4 mg 07/26/20 10:00 08/07/20 19:22 Doxazosin 4 Mg Tab PO Not Given DAILY [facility] Fenofibrate 145 mg 07/25/20 10:00 08/07/20 19:23 Fenofibrate 145 Mg Tab PO Not Given DAILY [facility] Ferrous Sulfate 325 mg 07/24/20 22:00 08/07/20 21:32 Ferrous Sulfate 325 Mg Tab PO 325 mg BID SADAF Administration Fish Oil 1,000 mg 07/25/20 10:00 08/07/20 19:23 [place]-3 Fatty Acids/Fish Oil 1 Gram Cap PO Not Given DAILY [facility] Hydralazine HCl 50 mg 07/28/20 22:00 08/08/20 06:11 Hydralazine 25 Mg Tab PO Not Given Q8HR [facility] Hydralazine HCl 10 mg 07/28/20 16:22 08/02/20 08:46 Hydralazine 20 Mg/1 Ml Inj IV 10 mg Q6H PRN Administration Blood Pressure Dextrose 1,000 mls @ 30 mls/hr 07/31/20 12:00 08/08/20 09:28 D10w IV 75 mls/hr DIRECT SADAF Administration Ceftriaxone Sodium 1 gm in 50 mls @ 100 mls/hr 08/06/20 23:45 08/08/20 00:08 Rocephin/Ns 1 Gm/50 Ml IV 100 mls/hr Q24H SADAF Administration Protocol Norepinephrine 4 mg in 250 mls @ 7.5 mls/hr 08/07/20 09:39 Levophed Drip 4 Mg/Ns 250 Ml IV TITR SADAF Protocol 2 MCG/MIN Lidocaine HCl 1 applic 08/07/20 13:00 08/07/20 21:34 Butt Paste 50 Applic/100 Gm Jar TP 1 applic BID SADAF Administration Losartan Potassium 100 mg 07/25/20 10:00 08/07/20 19:22 Losartan 50 Mg Tab PO Not Given QDAY [facility] Montelukast Sodium 10 mg 07/24/20 18:00 08/07/20 19:18 Montelukast 10 Mg Tab PO Not Given QPM [facility] Multivit/Ca Carb/B Cmplx/FA/Prenat 1 cap 07/26/20 10:00 08/07/20 19:23 Folic Acid/Vit B Comp W-C 1 Mg (Renal Caps) PO Not Given QDAY [facility] Multivitamins/Minerals 1 each 07/25/20 10:00 08/07/20 19:23 Multivitamins,Ther W-Minerals Tab PO Not Given QDAY [facility] Ondansetron HCl 4 mg 07/24/20 12:00 Ondansetron 4 Mg/2 Ml Inj IV Q8H PRN Nausea And Vomiting Pravastatin Sodium 80 mg 07/24/20 22:00 08/07/20 21:35 Pravastatin 80 Mg Tab PO 80 mg QHS [facility] Administration Sevelamer Carbonate 800 mg 07/24/20 17:00 08/08/20 07:48 Sevelamer Carbonate 800 Mg Tab PO 800 mg TIDWM [facility] Administration Sodium Chloride 10 ml 07/24/20 12:30 08/07/20 21:32 Sodium Chloride 0.9% 10 Ml Flush Syringe IV 10 ml BID SADAF Administration Sodium Chloride 10 ml 07/24/20 12:30 07/24/20 12:39 Sodium Chloride 0.9% 10 Ml Flush Syringe IV 10 ml PRN PRN Administration LINE FLUSH
--- NOTE | 2020-08-08 12:37 | Progress Note ---
Assessment and Plan Await vascular eval of current doppler study, but will likely transfer out of unit today. Continue supplemental oxygen and HD per renal. Subjective Date of service: 08/08/20 Principal diagnosis: Peripheral vascular disease with gangrene Interval history: Getting HD currently. Had Pseudoaneurysms occluded via IR on yesterday. Per Radiology, it appears bigger. No official report yet. Hemodynamically stable. Pain is resolved. Objective Vital Signs - 12hr 08/08/20 08/08/20 08/08/20 01:01 02:01 03:01 Temperature Pulse Rate 74 75 75 Pulse Rate [ Anterior Bilateral Throughout] Pulse Rate [ From Monitor] Respiratory 23 12 16 Rate Respiratory Rate [Anterior Bilateral Throughout] Blood Pressure 153/59 165/47 137/56 O2 Sat by Pulse 100 100 100 Oximetry O2 Sat by Pulse Oximetry [ Anterior Bilateral Throughout] 08/08/20 08/08/20 08/08/20 03:37 04:00 04:01 Temperature 98.8 F Pulse Rate 72 74 Pulse Rate [ Anterior Bilateral Throughout] Pulse Rate [ From Monitor] Respiratory 22 16 Rate Respiratory Rate [Anterior Bilateral Throughout] Blood Pressure 141/48 O2 Sat by Pulse 100 100 Oximetry O2 Sat by Pulse Oximetry [ Anterior Bilateral Throughout] 08/08/20 08/08/20 08/08/20 05:01 06:01 06:11 Temperature Pulse Rate 76 75 Pulse Rate [ Anterior Bilateral Throughout] Pulse Rate [ From Monitor] Respiratory 16 Rate Respiratory Rate [Anterior Bilateral Throughout] Blood Pressure 107/69 107/69 97/58 O2 Sat by Pulse 100 99 Oximetry O2 Sat by Pulse Oximetry [ Anterior Bilateral Throughout] 08/08/20 08/08/20 08/08/20 07:00 08:00 09:00 Temperature 99.0 F Pulse Rate 76 69 69 Pulse Rate [ Anterior Bilateral Throughout] Pulse Rate [ 69 From Monitor] Respiratory 22 15 19 Rate Respiratory Rate [Anterior Bilateral Throughout] Blood Pressure 96/50 137/50 149/56 O2 Sat by Pulse 100 100 99 Oximetry O2 Sat by Pulse Oximetry [ Anterior Bilateral Throughout] 08/08/20 08/08/20 08/08/20 09:42 09:45 10:00 Temperature 97.8 F Pulse Rate 79 77 79 Pulse Rate [ Anterior Bilateral Throughout] Pulse Rate [ From Monitor] Respiratory 20 Rate Respiratory Rate [Anterior Bilateral Throughout] Blood Pressure 107/67 112/64 117/66 O2 Sat by Pulse Oximetry O2 Sat by Pulse 100 Oximetry [ Anterior Bilateral Throughout] 08/08/20 08/08/20 08/08/20 10:01 10:15 10:30 Temperature Pulse Rate 79 75 75 Pulse Rate [ Anterior Bilateral Throughout] Pulse Rate [ From Monitor] Respiratory 26 H Rate Respiratory Rate [Anterior Bilateral Throughout] Blood Pressure 117/66 110/57 145/59 O2 Sat by Pulse 100 Oximetry O2 Sat by Pulse Oximetry [ Anterior Bilateral Throughout] 08/08/20 08/08/20 08/08/20 10:35 10:45 10:50 Temperature Pulse Rate 75 Pulse Rate [ 75 Anterior Bilateral Throughout] Pulse Rate [ From Monitor] Respiratory Rate Respiratory 20 Rate [Anterior Bilateral Throughout] Blood Pressure 108/49 O2 Sat by Pulse 100 Oximetry O2 Sat by Pulse Oximetry [ Anterior Bilateral Throughout] 08/08/20 08/08/20 08/08/20 11:00 11:01 11:15 Temperature Pulse Rate 75 76 71 Pulse Rate [ Anterior Bilateral Throughout] Pulse Rate [ From Monitor] Respiratory 16 Rate Respiratory Rate [Anterior Bilateral Throughout] Blood Pressure 94/48 94/48 98/46 O2 Sat by Pulse 100 Oximetry O2 Sat by Pulse Oximetry [ Anterior Bilateral Throughout] 08/08/20 08/08/20 08/08/20 11:30 11:45 12:00 Temperature Pulse Rate 77 76 72 Pulse Rate [ Anterior Bilateral Throughout] Pulse Rate [ From Monitor] Respiratory 22 Rate Respiratory Rate [Anterior Bilateral Throughout] Blood Pressure 92/64 152/48 148/53 O2 Sat by Pulse 98 Oximetry O2 Sat by Pulse Oximetry [ Anterior Bilateral Throughout] 08/08/20 08/08/20 12:15 12:30 Temperature Pulse Rate 77 72 Pulse Rate [ Anterior Bilateral Throughout] Pulse Rate [ From Monitor] Respiratory Rate Respiratory Rate [Anterior Bilateral Throughout] Blood Pressure 115/46 117/47 O2 Sat by Pulse Oximetry O2 Sat by Pulse Oximetry [ Anterior Bilateral Throughout] Constitutional: no acute distress, alert Eyes: non-icteric ENT: oropharynx moist Neck: supple Effort: normal Ascultation: Bilateral: clear (anteriorly) Cardiovascular: regular rate and rhythm (no mrg) Gastrointestinal: normoactive bowel sounds, soft Integumentary: other (dry gangrene 1st toe on L) Extremities: no cyanosis, no edema Neurologic: normal mental status, non-focal exam, pupils equal and round Psychiatric: mood appropriate, affect normal CBC and BMP: 08/08/20 05:04 08/08/20 05:04 ABG, PT/INR, D-dimer: ABG ABG pH 7.316 pH Units (7.350-7.450) L 07/29/20 12:55 ABG pCO2 48.6 mm Hg 07/29/20 12:55 ABG pO2 131.0 mm Hg (80.0-90.0) H 07/29/20 12:55 ABG O2 Saturation 98.3 % (95.0-99.0) 07/29/20 12:55 PT/INR, D-dimer PT 13.9 Sec. (12.2-14.9) 08/06/20 04:56 INR 1.08 (0.87-1.13) 08/06/20 04:56 Abnormal lab findings: Abnormal Labs 07/24/20 07/24/20 07/24/20 08:40 08:40 08:40 WBC 11.3 H RBC 3.40 L Hgb 11.0 L Hct 33.0 L MCV 97 H RDW 15.6 H Plt Count Lymph % (Auto) [place] % (Auto) Lymph # (Auto) Seg Neutrophils % Seg Neuts % (Manual) Lymphocytes % (Manual) Seg Neutrophils # Seg Neutrophils # Man Monocytes # (Manual) APTT 45.0 H ABG pH ABG pO2 ABG Hemoglobin Sodium Potassium Chloride Carbon Dioxide BUN 38 H Creatinine 4.7 H Glucose POC Glucose Calcium AST Total Protein Albumin Prealbumin Vitamin B12 Crossmatch 07/24/20 07/24/20 07/24/20 15:41 15:57 20:52 WBC RBC Hgb Hct MCV RDW Plt Count Lymph % (Auto) [place] % (Auto) Lymph # (Auto) Seg Neutrophils % Seg Neuts % (Manual) Lymphocytes % (Manual) Seg Neutrophils # Seg Neutrophils # Man Monocytes # (Manual) APTT ABG pH ABG pO2 ABG Hemoglobin Sodium Potassium Chloride Carbon Dioxide BUN Creatinine Glucose POC Glucose 18 L 128 H 108 H Calcium AST Total Protein Albumin Prealbumin Vitamin B12 Crossmatch 07/25/20 07/25/20 07/25/20 05:42 05:42 07:43 WBC 11.4 H RBC 3.02 L Hgb 9.5 L Hct 29.8 L MCV 99 H RDW 15.9 H Plt Count Lymph % (Auto) 9.0 L [place] % (Auto) Lymph # (Auto) 1.0 L Seg Neutrophils % 82.6 H Seg Neuts % (Manual) Lymphocytes % (Manual) Seg Neutrophils # 9.4 H Seg Neutrophils # Man Monocytes # (Manual) APTT ABG pH ABG pO2 ABG Hemoglobin Sodium Potassium 5.1 H Chloride Carbon Dioxide BUN 53 H Creatinine 6.1 H Glucose 122 H POC Glucose 108 H Calcium AST Total Protein Albumin Prealbumin Vitamin B12 Crossmatch 07/25/20 07/25/20 07/26/20 11:18 21:17 11:35 WBC RBC Hgb Hct MCV RDW Plt Count Lymph % (Auto) [place] % (Auto) Lymph # (Auto) Seg Neutrophils % Seg Neuts % (Manual) Lymphocytes % (Manual) Seg Neutrophils # Seg Neutrophils # Man Monocytes # (Manual) APTT ABG pH ABG pO2 ABG Hemoglobin Sodium Potassium Chloride Carbon Dioxide BUN Creatinine Glucose POC Glucose 133 H 68 L 45 L Calcium AST Total Protein Albumin Prealbumin Vitamin B12 Crossmatch 07/26/20 07/26/20 07/26/20 12:27 12:51 16:27 WBC RBC Hgb Hct MCV RDW Plt Count Lymph % (Auto) [place] % (Auto) Lymph # (Auto) Seg Neutrophils % Seg Neuts % (Manual) Lymphocytes % (Manual) Seg Neutrophils # Seg Neutrophils # Man Monocytes # (Manual) APTT ABG pH ABG pO2 ABG Hemoglobin Sodium Potassium Chloride Carbon Dioxide BUN Creatinine Glucose POC Glucose 65 L 124 H 52 L Calcium AST Total Protein Albumin Prealbumin Vitamin B12 Crossmatch 07/26/20 07/27/20 07/27/20 18:13 05:21 05:21 WBC 11.5 H RBC 3.16 L Hgb 10.0 L Hct 29.8 L MCV 95 H RDW Plt Count Lymph % (Auto) [place] % (Auto) Lymph # (Auto) Seg Neutrophils % Seg Neuts % (Manual) Lymphocytes % (Manual) Seg Neutrophils # Seg Neutrophils # Man Monocytes # (Manual) APTT ABG pH ABG pO2 ABG Hemoglobin Sodium Potassium Chloride Carbon Dioxide BUN 45 H Creatinine 5.6 H Glucose POC Glucose 147 H Calcium AST Total Protein Albumin Prealbumin Vitamin B12 Crossmatch 07/27/20 07/27/20 07/27/20 07:37 09:10 16:25 WBC RBC Hgb Hct MCV RDW Plt Count Lymph % (Auto) [place] % (Auto) Lymph # (Auto) Seg Neutrophils % Seg Neuts % (Manual) Lymphocytes % (Manual) Seg Neutrophils # Seg Neutrophils # Man Monocytes # (Manual) APTT ABG pH ABG pO2 ABG Hemoglobin Sodium Potassium Chloride Carbon Dioxide BUN Creatinine Glucose POC Glucose 41 L 129 H Calcium AST Total Protein Albumin Prealbumin 0.116 L Vitamin B12 Crossmatch 07/27/20 07/27/20 07/28/20 16:25 21:16 11:41 WBC RBC Hgb Hct MCV RDW Plt Count Lymph % (Auto) [place] % (Auto) Lymph # (Auto) Seg Neutrophils % Seg Neuts % (Manual) Lymphocytes % (Manual) Seg Neutrophils # Seg Neutrophils # Man Monocytes # (Manual) APTT ABG pH ABG pO2 ABG Hemoglobin Sodium Potassium Chloride Carbon Dioxide BUN Creatinine Glucose POC Glucose 123 H 117 H Calcium AST Total Protein Albumin Prealbumin Vitamin B12 980.0 H Crossmatch 07/28/20 07/28/20 07/29/20 15:47 22:07 07:42 WBC RBC Hgb Hct MCV RDW Plt Count Lymph % (Auto) [place] % (Auto) Lymph # (Auto) Seg Neutrophils % Seg Neuts % (Manual) Lymphocytes % (Manual) Seg Neutrophils # Seg Neutrophils # Man Monocytes # (Manual) APTT ABG pH ABG pO2 ABG Hemoglobin Sodium Potassium Chloride Carbon Dioxide BUN Creatinine Glucose POC Glucose 148 H 119 H 106 H Calcium AST Total Protein Albumin Prealbumin Vitamin B12 Crossmatch 07/29/20 07/29/20 07/29/20 11:08 12:55 22:46 WBC RBC Hgb Hct MCV RDW Plt Count Lymph % (Auto) [place] % (Auto) Lymph # (Auto) Seg Neutrophils % Seg Neuts % (Manual) Lymphocytes % (Manual) Seg Neutrophils # Seg Neutrophils # Man Monocytes # (Manual) APTT ABG pH 7.316 L ABG pO2 131.0 H ABG Hemoglobin 9.4 L Sodium Potassium Chloride Carbon Dioxide BUN Creatinine Glucose POC Glucose 117 H 125 H Calcium AST Total Protein Albumin Prealbumin Vitamin B12 Crossmatch 07/30/20 07/30/20 07/30/20 04:17 04:17 07:50 WBC RBC 2.95 L Hgb 9.4 L Hct 28.4 L MCV 96 H RDW Plt Count Lymph % (Auto) [place] % (Auto) Lymph # (Auto) Seg Neutrophils % Seg Neuts % (Manual) Lymphocytes % (Manual) Seg Neutrophils # Seg Neutrophils # Man Monocytes # (Manual) APTT ABG pH ABG pO2 ABG Hemoglobin Sodium Potassium Chloride Carbon Dioxide BUN 46 H Creatinine 5.8 H Glucose POC Glucose 47 L Calcium 8.3 L AST Total Protein Albumin Prealbumin Vitamin B12 Crossmatch 07/30/20 07/30/20 07/31/20 16:33 21:25 07:26 WBC RBC Hgb Hct MCV RDW Plt Count Lymph % (Auto) [place] % (Auto) Lymph # (Auto) Seg Neutrophils % Seg Neuts % (Manual) Lymphocytes % (Manual) Seg Neutrophils # Seg Neutrophils # Man Monocytes # (Manual) APTT ABG pH ABG pO2 ABG Hemoglobin Sodium Potassium 5.4 H Chloride Carbon Dioxide BUN 50 H Creatinine 5.8 H Glucose 112 H POC Glucose 123 H 59 L Calcium 8.1 L AST Total Protein Albumin Prealbumin Vitamin B12 Crossmatch 07/31/20 07/31/20 07/31/20 09:03 10:47 14:09 WBC RBC 2.73 L Hgb 8.7 L Hct 26.6 L MCV 97 H RDW 15.3 H Plt Count Lymph % (Auto) [place] % (Auto) 8.7 H Lymph # (Auto) Seg Neutrophils % 74.7 H Seg Neuts % (Manual) Lymphocytes % (Manual) Seg Neutrophils # Seg Neutrophils # Man Monocytes # (Manual) APTT ABG pH ABG pO2 ABG Hemoglobin Sodium Potassium Chloride Carbon Dioxide BUN 29 H Creatinine 4.3 H Glucose 106 H POC Glucose 48 L Calcium 8.0 L AST Total Protein Albumin Prealbumin Vitamin B12 Crossmatch 07/31/20 07/31/20 08/01/20 16:01 20:04 10:42 WBC RBC Hgb Hct MCV RDW Plt Count Lymph % (Auto) [place] % (Auto) Lymph # (Auto) Seg Neutrophils % Seg Neuts % (Manual) Lymphocytes % (Manual) Seg Neutrophils # Seg Neutrophils # Man Monocytes # (Manual) APTT ABG pH ABG pO2 ABG Hemoglobin Sodium Potassium Chloride Carbon Dioxide BUN Creatinine Glucose POC Glucose 69 L 111 H 109 H Calcium AST Total Protein Albumin Prealbumin Vitamin B12 Crossmatch 08/01/20 08/02/20 08/03/20 13:49 08:45 07:55 WBC RBC Hgb Hct MCV RDW Plt Count Lymph % (Auto) [place] % (Auto) Lymph # (Auto) Seg Neutrophils % Seg Neuts % (Manual) Lymphocytes % (Manual) Seg Neutrophils # Seg Neutrophils # Man Monocytes # (Manual) APTT ABG pH ABG pO2 ABG Hemoglobin Sodium 134 L Potassium Chloride Carbon Dioxide BUN 38 H Creatinine 5.7 H Glucose 105 H POC Glucose 69 L 38 L Calcium 8.2 L AST Total Protein Albumin Prealbumin Vitamin B12 Crossmatch 08/03/20 08/03/20 08/03/20 08:03 11:32 12:30 WBC RBC Hgb Hct MCV RDW Plt Count Lymph % (Auto) [place] % (Auto) Lymph # (Auto) Seg Neutrophils % Seg Neuts % (Manual) Lymphocytes % (Manual) Seg Neutrophils # Seg Neutrophils # Man Monocytes # (Manual) APTT ABG pH ABG pO2 ABG Hemoglobin Sodium Potassium Chloride Carbon Dioxide BUN Creatinine Glucose POC Glucose 223 H 136 H 119 H Calcium AST Total Protein Albumin Prealbumin Vitamin B12 Crossmatch 08/03/20 08/04/20 08/04/20 21:38 07:32 08:25 WBC RBC Hgb Hct MCV RDW Plt Count Lymph % (Auto) [place] % (Auto) Lymph # (Auto) Seg Neutrophils % Seg Neuts % (Manual) Lymphocytes % (Manual) Seg Neutrophils # Seg Neutrophils # Man Monocytes # (Manual) APTT ABG pH ABG pO2 ABG Hemoglobin Sodium Potassium Chloride Carbon Dioxide BUN Creatinine Glucose POC Glucose 133 H 54 L 126 H Calcium AST Total Protein Albumin Prealbumin Vitamin B12 Crossmatch 08/04/20 08/04/20 08/04/20 12:06 12:06 15:51 WBC RBC 2.63 L Hgb 8.4 L Hct 25.4 L MCV 97 H RDW Plt Count Lymph % (Auto) 7.6 L [place] % (Auto) Lymph # (Auto) 0.6 L Seg Neutrophils % 81.8 H Seg Neuts % (Manual) Lymphocytes % (Manual) Seg Neutrophils # Seg Neutrophils # Man Monocytes # (Manual) APTT ABG pH ABG pO2 ABG Hemoglobin Sodium 132 L Potassium Chloride 96.8 L Carbon Dioxide BUN Creatinine 4.0 H Glucose 131 H POC Glucose 126 H Calcium 7.8 L AST Total Protein 5.3 L Albumin 2.2 L Prealbumin Vitamin B12 Crossmatch 03/08/05/20 08/05/20 09:34 09:34 21:22 WBC RBC 2.54 L Hgb 8.0 L Hct 24.3 L MCV 95 H RDW 15.3 H Plt Count Lymph % (Auto) 11.3 L [place] % (Auto) 7.7 H Lymph # (Auto) 1.0 L Seg Neutrophils % 77.6 H Seg Neuts % (Manual) Lymphocytes % (Manual) Seg Neutrophils # Seg Neutrophils # Man Monocytes # (Manual) APTT ABG pH ABG pO2 ABG Hemoglobin Sodium 132 L Potassium Chloride 95.2 L Carbon Dioxide BUN 24 H Creatinine 5.0 H Glucose 106 H POC Glucose 50 L Calcium 8.0 L AST Total Protein 5.0 L Albumin 2.1 L Prealbumin Vitamin B12 Crossmatch 08/06/20 08/06/20 08/07/20 04:56 04:56 04:56 WBC 23.6 H RBC 2.55 L 1.82 L Hgb 8.1 L 5.8 L* Hct 24.5 L 17.5 L* D MCV 96 H 97 H RDW 15.4 H Plt Count 129 L Lymph % (Auto) 10.9 L [place] % (Auto) 7.9 H Lymph # (Auto) 1.1 L Seg Neutrophils % 79.0 H Seg Neuts % (Manual) 89.0 H Lymphocytes % (Manual) 6.0 L Seg Neutrophils # 8.2 H Seg Neutrophils # Man 21.0 H Monocytes # (Manual) 1.2 H APTT ABG pH ABG pO2 ABG Hemoglobin Sodium 127 L Potassium Chloride 91.9 L Carbon Dioxide BUN 28 H Creatinine 5.8 H Glucose POC Glucose Calcium 7.9 L AST Total Protein 5.0 L Albumin 1.9 L Prealbumin Vitamin B12 Crossmatch 08/07/20 08/07/20 08/07/20 04:56 08:56 09:05 WBC RBC Hgb 6.6 L Hct 20.2 L MCV RDW Plt Count Lymph % (Auto) [place] % (Auto) Lymph # (Auto) Seg Neutrophils % Seg Neuts % (Manual) Lymphocytes % (Manual) Seg Neutrophils # Seg Neutrophils # Man Monocytes # (Manual) APTT ABG pH ABG pO2 ABG Hemoglobin Sodium 133 L Potassium Chloride 96.2 L Carbon Dioxide 31 H BUN Creatinine 3.7 H Glucose 132 H POC Glucose Calcium 7.8 L AST 43 H Total Protein 4.9 L Albumin 2.0 L Prealbumin Vitamin B12 Crossmatch See Detail 08/07/20 08/08/20 08/08/20 23:55 01:08 05:04 WBC 12.4 H RBC 3.02 L Hgb 9.4 L Hct 27.5 L D MCV RDW 17.2 H Plt Count Lymph % (Auto) 7.1 L [place] % (Auto) Lymph # (Auto) 0.9 L Seg Neutrophils % 85.1 H Seg Neuts % (Manual) Lymphocytes % (Manual) Seg Neutrophils # 10.5 H Seg Neutrophils # Man Monocytes # (Manual) APTT ABG pH ABG pO2 ABG Hemoglobin Sodium Potassium Chloride Carbon Dioxide BUN Creatinine Glucose POC Glucose 68 L 68 L Calcium AST Total Protein Albumin Prealbumin Vitamin B12 Crossmatch 08/08/20 08/08/20 08/08/20 05:04 05:19 12:01 WBC RBC Hgb Hct MCV RDW Plt Count Lymph % (Auto) [place] % (Auto) Lymph # (Auto) Seg Neutrophils % Seg Neuts % (Manual) Lymphocytes % (Manual) Seg Neutrophils # Seg Neutrophils # Man Monocytes # (Manual) APTT ABG pH ABG pO2 ABG Hemoglobin Sodium 133 L Potassium Chloride 96.6 L Carbon Dioxide BUN 24 H Creatinine 4.7 H Glucose POC Glucose 68 L 122 H Calcium 8.3 L AST 48 H Total Protein 5.2 L Albumin 2.2 L Prealbumin Vitamin B12 Crossmatch
--- NOTE | 2020-08-08 12:41 | Event Note ---
Date: 08/08/20 Status post pseudoaneurysm injection was partially successful. It was a bilobed pseudoaneurysm and both lobes were treated successfully. The common neck was small, but since yesterday, has given rise to a new pseudoaneurysm measuring less than 2 cm. Plan for another ultrasound guided pseudoaneurysm injection tomorrow with thrombin. NPO except sips of water with meds.
--- NOTE | 2020-08-08 13:48 | Vascular Lab Report ---
VL ARTERIAL DUPLEX LOWER EXTREMITY RIGHT HISTORY: Pseudoaneurysm after thrombin injection TECHNIQUE: Grayscale ultrasound with color and spectral Doppler imaging. COMPARISON: 08/07/2020 FINDINGS: A right common femoral artery pseudoaneurysm measures 1.5 x 1.0 cm which is decreased sligh tly in size from 1.7 x 1.5 cm on the previous exam. No organized internal thrombus is demonstrated. T he neck of the pseudoaneurysm has increased slightly from 0.35 cm to 0.40 cm. The right common femora l artery is patent. Dr. Malhotra was informed of these findings at 1231 hours by the technologist. Signer Name: Saman Baeza Jr, MD Signed: 08/08/2020 1:44 PM Workstation Name: [id number]
[2020-08-08] MEDS: MONTELUKAST 10 MG TAB PO SCH ×2 (14:12→17:55)
[2020-08-08] MEDS: DOXAZOSIN 4 MG TAB PO SCH (14:14)
[2020-08-08] MEDS: BUTT PASTE 50 APPLIC/100 GM JAR TP SCH ×2 (14:14→21:34)
[2020-08-08] MEDS: carvediloL 6.25 MG TAB PO SCH ×2 (14:17→21:33)
[2020-08-08] MEDS: LOSARTAN 50 MG TAB PO SCH (14:19)
[2020-08-08] MEDS: OMEGA-3 FATTY ACIDS/FISH OIL 1 GRAM CAP PO SCH (14:22)
[2020-08-08] MEDS: FERROUS SULFATE 325 MG TAB PO SCH ×2 (14:23→21:33)
[2020-08-08] MEDS: ASPIRIN EC 81 MG TAB PO SCH (14:24)
[2020-08-08] MEDS: CLOPIDOGREL 75 MG TAB PO SCH (14:24)
[2020-08-08] MEDS: FOLIC ACID/VIT B COMP W-C 1 MG (RENAL CAPS) PO SCH (14:25)
[2020-08-08] MEDS: MULTIVITAMINS,THER W-MINERALS TAB PO SCH (14:26)
[2020-08-08] MEDS: FENOFIBRATE 145 MG TAB PO SCH (14:27)
[2020-08-08] MEDS: allopurinoL 100 MG TAB PO SCH (14:27)
--- NOTE | 2020-08-08 14:44 | Progress Note ---
Assessment and Plan Cultures: 07/24/2020 blood culture: No growth A/P: 80-year-old male with ESRD on HD, diabetes, hypertension, prior CVA, vascular dementia: #Left foot cellulitis with gangrenous changes involving 1st and 2nd toes: Vascular following. Underwent re-vasc on 07/30/2020. #Acute encephalopathy: Neurology on board. MRI brain with advanced volume loss, no acute findings. #ESRD on HD: Renally dose antibiotics. #Scrotal wound: eval for abscess. Recs: -Continue empiric vancomycin and ceftriaxone for now -Obtain scrotal ultrasound. Donald Theodore MD [facility] ([facility]) O: [phone] F: [phone] Subjective Date of service: 08/08/20 Principal diagnosis: Peripheral vascular disease with gangrene Interval history: Called back to case due to concern for potential scrotal abscess. Afebrile. Objective - Exam Narrative Exam: Constitutional: awake and alert Head, Ears, Nose: Normocephalic, atraumatic. External ears, nose normal Eyes: Conjunctivae/corneas clear. No icterus. No ptosis. Neck: Supple, no meningeal signs Cardiovascular: S1, S2 normal. Respiratory: Good air entry, clear to auscultation bilaterally GI: Soft, non-tender; bowel sounds normal. No peritoneal signs Musculoskeletal: Left great toe and second toe with dry gangrenous change Skin: Scabs on bilateral feet. Hem/Lymphatic: No palpable cervical or supraclavicular nodes. No lymphangitis Psych: no agitation Neurological: awake, answering basic questions. - Constitutional Vitals: Vital Signs Temp Pulse Resp BP Pulse Ox 98.1 F 77 22 148/60 98 08/08/20 12:00 08/08/20 14:19 08/08/20 12:00 08/08/20 14:17 08/08/20 12:00 Temperature -Last 24 Hours Temperature 98.1 F Temperature 97.8 F Temperature 99.0 F Temperature 98.8 F Temperature 98.6 F Temperature 97.9 F Temperature 98.0 F Temperature 98.0 F - Labs CBC & Chem 7: 08/08/20 05:04 08/08/20 05:04 Labs: Abnormal lab results 08/07/20 08/07/20 08/08/20 Range/Units 09:05 23:55 01:08 WBC (4.5-11.0) K/mm3 RBC (3.65-5.03) M/mm3 Hgb (11.8-15.2) gm/dl Hct (35.5-45.6) % RDW (13.2-15.2) % Lymph % (Auto) (13.4-35.0) % Lymph # (Auto) (1.2-5.4) K/mm3 Seg Neutrophils % (40.0-70.0) % Seg Neutrophils # (1.8-7.7) K/mm3 Sodium (137-145) mmol/L Chloride (98-107) mmol/L BUN (9-20) mg/dL Creatinine (0.8-1.3) mg/dL POC Glucose 68 L 68 L (70-105) mg/dL Calcium (8.4-10.2) mg/dL AST (5-40) units/L Total Protein (6.3-8.2) g/dL Albumin (3.9-5) g/dL Crossmatch See Detail 08/08/20 08/08/20 08/08/20 Range/Units 05:04 05:04 05:19 WBC 12.4 H (4.5-11.0) K/mm3 RBC 3.02 L (3.65-5.03) M/mm3 Hgb 9.4 L (11.8-15.2) gm/dl Hct 27.5 L D (35.5-45.6) % RDW 17.2 H (13.2-15.2) % Lymph % (Auto) 7.1 L (13.4-35.0) % Lymph # (Auto) 0.9 L (1.2-5.4) K/mm3 Seg Neutrophils % 85.1 H (40.0-70.0) % Seg Neutrophils # 10.5 H (1.8-7.7) K/mm3 Sodium 133 L (137-145) mmol/L Chloride 96.6 L (98-107) mmol/L BUN 24 H (9-20) mg/dL Creatinine 4.7 H (0.8-1.3) mg/dL POC Glucose 68 L (70-105) mg/dL Calcium 8.3 L (8.4-10.2) mg/dL AST 48 H (5-40) units/L Total Protein 5.2 L (6.3-8.2) g/dL Albumin 2.2 L (3.9-5) g/dL Crossmatch 08/08/20 Range/Units 12:01 WBC (4.5-11.0) K/mm3 RBC (3.65-5.03) M/mm3 Hgb (11.8-15.2) gm/dl Hct (35.5-45.6) % RDW (13.2-15.2) % Lymph % (Auto) (13.4-35.0) % Lymph # (Auto) (1.2-5.4) K/mm3 Seg Neutrophils % (40.0-70.0) % Seg Neutrophils # (1.8-7.7) K/mm3 Sodium (137-145) mmol/L Chloride (98-107) mmol/L BUN (9-20) mg/dL Creatinine (0.8-1.3) mg/dL POC Glucose 122 H (70-105) mg/dL Calcium (8.4-10.2) mg/dL AST (5-40) units/L Total Protein (6.3-8.2) g/dL Albumin (3.9-5) g/dL Crossmatch
--- NOTE | 2020-08-08 15:14 | Event Note ---
Date: 08/08/20 Patient without complaints. Dressings removed and right groin was nontender. Palpable pulsatile mass in right groin was nontender but correlates with the ultrasound finding of persistent pseudoaneurysm. Placed pressure dressing over the area using a Kerlix Roll and Elastoplast. Patient tolerated without complication. Plan is for Thrombin injection tomorrow unless the pseudoaneurysm thrombosis overnight with compression.
--- NOTE | 2020-08-08 15:55 | Progress Note ---
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 Placed pressure dressing over the area Plan is for Thrombin injection tomorrow unless the pseudoaneurysm thrombosis overnight with compression. 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 Verbal prompting, verbal redirection Continue aspirin and Plavix --Gout Continue allopurinol --BPH Continue doxazosin --Moderate protein calorie malnutrition Nutrition referral Diet supplements --Hypoglycemia Due to poor intake Continue diet D10W #ESRD Hemodialysis as scheduled Nephrology following --Acute hypoxia with respiratory failure-continue supplemental O2 as needed --Stage 1 pressure ulcer sacrum-wound care -- Scrotal wound with drainage Need to rule out scrotal abscess US scrotum ordered ID consulted Urology consulted Antibiotics - vancomycin, ceftriaxone --Advance care planning May need placement. Sons number is Timmy Beckman --DVT prophylaxis SCD to bilateral lower extremities while in bed, prophylactic anticoagulation. Brief history: 80 YO Male with ESRD on HD (M, W, F), HTN, DM, Vascular Dementia, Cerebral Atherosclerosis presents to ED with confusion. As per the patient's the patient has experienced increased weakness and confusion over the past 1 month with increased bedbound status. In the ER, patient found to have end-stage renal disease, left foot cellulitis complicated by systemic inflammatory response syndrome, as well as peripheral vascular disease. Patient admitted to medical floor and initiated on IV antibiotic therapy. Nephrology and vascular team consulted in ED. CT: Head: Negative for acute pathology. Daily clinical course: 07/25: Discussed with the IR, patient with new onset Altered mental status from the last time they saw the patient. Will begin work-up for possible underlying sepsis etiology or source unknown at this time. Will obtain ID consulted and Neurology. Continue abx, attempted to reach family. Concern for stroke is low but considering hx of vasculopathy will obtain N eurology Will also obtain wound consultation. 07/26: Some improvement noted with initiation of antibiotics. We will continue current management patient continues on hemodialysis. Will await further v ascular improvement as patient is beginning to show some improvement. Discussed with case management. Apparently the person that came with the patient is not the patient's but a caregiver H&P portion of this note has been corrected. Continue wound care and every 2 hours turns. 07/27: Continue current management plan. Vascular to re-evaluate. Continue abx. MRI with no acute pathology. Agree with the D5 as patient still has some intermittent confusion. Continue to monitor. Speech evaluation for swallow management. 07/28: Patient clinically stable, continue supportive care, abx, awaiting full vascular input. cONTINUE D5 for now. 07/29: We will give patient dose of Lasix, get a chest x-ray. Discussed with nursing staff could be that the patient was appear hypoxic due to cold extremiti es. Will obtain an ABG. We will also obtain a pulmonary consult for clearance for anticipated vascular procedure in a.m. 07/30: Noted hypoglycemia this morning we will give D50 and amp. Patient is for procedure today. Discussed with vascular. Per discussion with nursing saturation has improved. Pulmonary input is noted. He was admitted for digital gangrene on multiple digits both fingers and toes. Was also noted to be septic requiring treatment which has led to improvement in his mental status. 07/31. Now status post angiography and angioplasty of distal femoral arteries. Now on antiplatelets. He has been having episodes of hypoglycemia. Started him on D10 water. Continue to monitor closely for now. CT head ordered to rule out any CVA though not likely. Vascular surgery following. 08/01. Patient remains lethargic. Discontinued pain medications and gabapentin. On IV antibiotics. Started on D10 water yesterday for hypoglycemia. If lethargy does not improve, will place an NG tube. CT head negative for any stroke. 08/02. More responsive today. Still gets agitated and pulling on his IV lines so was placed on restraints. Needs to have a repeat swallow evaluation. Blood glucose is table. 08/03. Responsive today. Alert and oriented x2. Will get vascular to reevaluate. Needs to have revascularization of LE vessels as per vascular. Passed swallow evaluation yesterday and has been started on a diet. 08/04. Plan for vascularization of the extremities as per vascular. 08/05. No complaints today. Plan for revascularization tomorrow. NPO after midnight 08/06. Plan for revascularization today. He will need placement but PT yet to see. 08/07: Status post revascularization yesterday. H&H dropped today to 5.6. Patient noted to form pseudoaneurysm at the revascularization area. Patient also noted to have low BP -ordered for packed RBC and transferred to ICU for close monitoring. Continue D10 W 08/08: Status post hemodialysis today, H&H stable, vitals stable. Transfer out to telemetry. Patient has been seen by vascular surgeon, plan for thrombin injection tomorrow unless pseudoaneurysm thrombosis overnight with compression. N.p.o. after midnight Subjective Date of service: 08/08/20 Principal diagnosis: Peripheral vascular disease with gangrene Interval history: Patient seen and examined BP stable, patient more alert and awake today Status post HD at bedside H&H stable following transfusion Objective - Exam Narrative Exam: GENERAL: Alert and awake HEAD: No signs of head trauma. EYES: Pupils are equal. Extraocular motions intact. MOUTH: Oropharynx is normal. NECK: No adenopathy, no JVD. CHEST: Chest with diminished breath sounds bilaterally. No wheezes, rales, or rhonchi. CARDIAC: normal S1 and S2, without murmurs, gallops, or rubs. ABDOMEN: Soft, non tender and non distended. No rebound or guarding, and no masses palpated. Bowel Sounds normal. MUSCULOSKELETAL: LLE: Gangrenous looking big toe, proximal area of the leg feels warm to touch. NEUROLOGIC EXAM: Generalized weakness SKIN: No obvious lesions - Constitutional Vitals: Vital Signs - 12hr 08/08/20 08/08/20 08/08/20 04:00 04:01 05:01 Temperature Pulse Rate 72 74 Pulse Rate [ Anterior Bilateral Throughout] Pulse Rate [ From Monitor] Respiratory 22 16 Rate Respiratory Rate [Anterior Bilateral Throughout] Blood Pressure 141/48 107/69 O2 Sat by Pulse 100 100 100 Oximetry O2 Sat by Pulse Oximetry [ Anterior Bilateral Throughout] 08/08/20 08/08/20 08/08/20 06:01 06:11 07:00 Temperature Pulse Rate 76 75 76 Pulse Rate [ Anterior Bilateral Throughout] Pulse Rate [ From Monitor] Respiratory 16 22 Rate Respiratory Rate [Anterior Bilateral Throughout] Blood Pressure 107/69 97/58 96/50 O2 Sat by Pulse 99 100 Oximetry O2 Sat by Pulse Oximetry [ Anterior Bilateral Throughout] 08/08/20 08/08/20 08/08/20 08:00 09:00 09:42 Temperature 99.0 F 97.8 F Pulse Rate 69 69 79 Pulse Rate [ Anterior Bilateral Throughout] Pulse Rate [ 69 From Monitor] Respiratory 15 19 20 Rate Respiratory Rate [Anterior Bilateral Throughout] Blood Pressure 137/50 149/56 107/67 O2 Sat by Pulse 100 99 Oximetry O2 Sat by Pulse 100 Oximetry [ Anterior Bilateral Throughout] 08/08/20 08/08/20 08/08/20 09:45 10:00 10:01 Temperature Pulse Rate 77 79 79 Pulse Rate [ Anterior Bilateral Throughout] Pulse Rate [ From Monitor] Respiratory 26 H Rate Respiratory Rate [Anterior Bilateral Throughout] Blood Pressure 112/64 117/66 117/66 O2 Sat by Pulse 100 Oximetry O2 Sat by Pulse Oximetry [ Anterior Bilateral Throughout] 08/08/20 08/08/20 08/08/20 10:15 10:30 10:35 Temperature Pulse Rate 75 75 Pulse Rate [ 75 Anterior Bilateral Throughout] Pulse Rate [ From Monitor] Respiratory Rate Respiratory 20 Rate [Anterior Bilateral Throughout] Blood Pressure 110/57 145/59 O2 Sat by Pulse Oximetry O2 Sat by Pulse Oximetry [ Anterior Bilateral Throughout] 08/08/20 08/08/20 08/08/20 10:45 10:50 11:00 Temperature Pulse Rate 75 75 Pulse Rate [ Anterior Bilateral Throughout] Pulse Rate [ From Monitor] Respiratory Rate Respiratory Rate [Anterior Bilateral Throughout] Blood Pressure 108/49 94/48 O2 Sat by Pulse 100 Oximetry O2 Sat by Pulse Oximetry [ Anterior Bilateral Throughout] 08/08/20 08/08/20 08/08/20 11:01 11:15 11:30 Temperature Pulse Rate 76 71 77 Pulse Rate [ Anterior Bilateral Throughout] Pulse Rate [ From Monitor] Respiratory 16 Rate Respiratory Rate [Anterior Bilateral Throughout] Blood Pressure 94/48 98/46 92/64 O2 Sat by Pulse 100 Oximetry O2 Sat by Pulse Oximetry [ Anterior Bilateral Throughout] 08/08/20 08/08/20 08/08/20 11:45 12:00 12:15 Temperature 98.1 F Pulse Rate 76 72 77 Pulse Rate [ Anterior Bilateral Throughout] Pulse Rate [ 72 From Monitor] Respiratory 22 Rate Respiratory Rate [Anterior Bilateral Throughout] Blood Pressure 152/48 148/53 115/46 O2 Sat by Pulse 98 Oximetry O2 Sat by Pulse Oximetry [ Anterior Bilateral Throughout] 08/08/20 08/08/20 08/08/20 12:30 12:45 13:00 Temperature Pulse Rate 72 67 78 Pulse Rate [ Anterior Bilateral Throughout] Pulse Rate [ From Monitor] Respiratory 18 Rate Respiratory Rate [Anterior Bilateral Throughout] Blood Pressure 117/47 106/46 106/46 O2 Sat by Pulse 100 Oximetry O2 Sat by Pulse Oximetry [ Anterior Bilateral Throughout] 08/08/20 08/08/20 08/08/20 13:15 14:00 14:14 Temperature Pulse Rate 84 71 77 Pulse Rate [ Anterior Bilateral Throughout] Pulse Rate [ From Monitor] Respiratory 16 Rate Respiratory Rate [Anterior Bilateral Throughout] Blood Pressure 125/77 125/77 148/60 O2 Sat by Pulse 100 Oximetry O2 Sat by Pulse Oximetry [ Anterior Bilateral Throughout] 08/08/20 08/08/20 08/08/20 14:17 14:19 14:20 Temperature 97.6 F Pulse Rate 81 77 78 Pulse Rate [ Anterior Bilateral Throughout] Pulse Rate [ From Monitor] Respiratory 20 Rate Respiratory Rate [Anterior Bilateral Throughout] Blood Pressure 148/60 104/52 O2 Sat by Pulse Oximetry O2 Sat by Pulse 100 Oximetry [ Anterior Bilateral Throughout] 08/08/20 15:01 Temperature Pulse Rate 82 Pulse Rate [ Anterior Bilateral Throughout] Pulse Rate [ From Monitor] Respiratory 13 Rate Respiratory Rate [Anterior Bilateral Throughout] Blood Pressure 177/63 O2 Sat by Pulse 99 Oximetry O2 Sat by Pulse Oximetry [ Anterior Bilateral Throughout] - Labs CBC & Chem 7: 08/08/20 05:04 08/08/20 05:04 Labs: Abnormal lab results 08/07/20 08/07/20 08/08/20 Range/Units 09:05 23:55 01:08 WBC (4.5-11.0) K/mm3 RBC (3.65-5.03) M/mm3 Hgb (11.8-15.2) gm/dl Hct (35.5-45.6) % RDW (13.2-15.2) % Lymph % (Auto) (13.4-35.0) % Lymph # (Auto) (1.2-5.4) K/mm3 Seg Neutrophils % (40.0-70.0) % Seg Neutrophils # (1.8-7.7) K/mm3 Sodium (137-145) mmol/L Chloride (98-107) mmol/L BUN (9-20) mg/dL Creatinine (0.8-1.3) mg/dL POC Glucose 68 L 68 L (70-105) mg/dL Calcium (8.4-10.2) mg/dL AST (5-40) units/L Total Protein (6.3-8.2) g/dL Albumin (3.9-5) g/dL Crossmatch See Detail 08/08/20 08/08/20 08/08/20 Range/Units 05:04 05:04 05:19 WBC 12.4 H (4.5-11.0) K/mm3 RBC 3.02 L (3.65-5.03) M/mm3 Hgb 9.4 L (11.8-15.2) gm/dl Hct 27.5 L D (35.5-45.6) % RDW 17.2 H (13.2-15.2) % Lymph % (Auto) 7.1 L (13.4-35.0) % Lymph # (Auto) 0.9 L (1.2-5.4) K/mm3 Seg Neutrophils % 85.1 H (40.0-70.0) % Seg Neutrophils # 10.5 H (1.8-7.7) K/mm3 Sodium 133 L (137-145) mmol/L Chloride 96.6 L (98-107) mmol/L BUN 24 H (9-20) mg/dL Creatinine 4.7 H (0.8-1.3) mg/dL POC Glucose 68 L (70-105) mg/dL Calcium 8.3 L (8.4-10.2) mg/dL AST 48 H (5-40) units/L Total Protein 5.2 L (6.3-8.2) g/dL Albumin 2.2 L (3.9-5) g/dL Crossmatch 03/17/21 Range/Units 12:01 WBC (4.5-11.0) K/mm3 RBC (3.65-5.03) M/mm3 Hgb (11.8-15.2) gm/dl Hct (35.5-45.6) % RDW (13.2-15.2) % Lymph % (Auto) (13.4-35.0) % Lymph # (Auto) (1.2-5.4) K/mm3 Seg Neutrophils % (40.0-70.0) % Seg Neutrophils # (1.8-7.7) K/mm3 Sodium (137-145) mmol/L Chloride (98-107) mmol/L BUN (9-20) mg/dL Creatinine (0.8-1.3) mg/dL POC Glucose 122 H (70-105) mg/dL Calcium (8.4-10.2) mg/dL AST (5-40) units/L Total Protein (6.3-8.2) g/dL Albumin (3.9-5) g/dL Crossmatch
[2020-08-08] MEDS: PRAVASTATIN 80 MG TAB PO SCH (21:33)
[2020-08-08] MEDS ORDERED: VANCOMYCIN/NS 1 GM/250 ML 1 GM/250 ML BAG IV ONE (22:00)
[2020-08-09] MEDS: hydrALAZINE 25 MG TAB PO SCH ×3 (06:06→23:06)
[2020-08-09] MEDS ORDERED: THROMBIN (RECOMBINANT) 5,000 UNIT VIAL TP SCH (08:30)
[2020-08-09] MEDS ORDERED: LIDOCAINE 2%/EPINEPHRINE 1:100,000 VIAL (20 ML) INFILTRATI SCH (08:30)
[2020-08-09 08:49] LABS: Vitamin D, 25-OH, D2 SEE SCANNED RESULT
[2020-08-09] MEDS ORDERED: LIDOCAINE (2%) 20 MG/1 ML VIAL 20 ML MDV INFILTRATI ONE (08:53)
[2020-08-09] MEDS ORDERED: SODIUM CHLORIDE 0.9% 500 ML 1,000 ML ONE (08:53)
--- NOTE | 2020-08-09 09:05 | Progress Note ---
Subjective Date of service: 08/09/20 Principal diagnosis: Peripheral vascular disease with gangrene Interval history: Assessment: * ESRD * HTN * PVD * Gangrene * Anemia in ESRD Plan: * Continue MWF * uf as tolerated, Sodium noted, fluid restriction * renal diet * dialysis access is a central venous catheter. Site c/d/i * Continue antihypertensives * Continue epogen q treatment * Keep MAP>65 * Diet and nutrition: Patient needs to be on high protein diet - 1.2-1.4 g/kg/d * Multiple other complex comorbidities currently being managed by primary team * peripheral arterial disease/gangrene, vascular note reviewed. * Acute encephalopathy - improving, pain medications discontinued. CT head negative for stroke. Management per primary. * Will continue to follow and make recommendation for renal standpoint Subjective Date of service: 08/05/20 Principal diagnosis: Peripheral vascular disease with gangrene Interval history: More alert today Patient was seen for his renal issues Nursing, interdisciplinary and consult notes were reviewed Vitals, input and output, medications and labs were reviewed Objective - Exam Narrative Exam: General: No acute distress HEENT: Oral mucosa moist Neck: Supple, no JVD Chest: Clear to auscultation bilaterally Heart: RRR, S1 and S2, no pericardial rub Abdomen: Soft, nontender, no renal bruit Extremity: No peripheral cyanosis, edema. LE dressing noted. Neurological: Awake and alert Dermatology: No skin rash Psych: Calm and cooperative Musculoskeletal: No joint effusion Objective - Vital Signs Vital signs: Vital Signs - 12hr 08/08/20 08/08/20 08/08/20 21:09 21:32 21:33 Temperature 99.5 F Pulse Rate 80 90 90 Pulse Rate [ From Monitor] Respiratory 16 Rate Blood Pressure 178/53 178/53 178/53 O2 Sat by Pulse 90 Oximetry 08/08/20 08/08/20 08/08/20 22:00 22:22 23:36 Temperature 98.2 F Pulse Rate 90 78 Pulse Rate [ 80 From Monitor] Respiratory 20 18 Rate Blood Pressure 122/53 O2 Sat by Pulse 95 100 69 L Oximetry 08/09/20 08/09/20 04:05 06:06 Temperature 99.0 F Pulse Rate 75 75 Pulse Rate [ From Monitor] Respiratory 18 Rate Blood Pressure 159/75 159/75 O2 Sat by Pulse 91 Oximetry - Lab 08/08/20 05:04 08/08/20 05:04 Most recent lab results ABG pH 7.316 pH Units (7.350-7.450) L 07/29/20 12:55 ABG pCO2 48.6 mm Hg 07/29/20 12:55 ABG pO2 131.0 mm Hg (80.0-90.0) H 07/29/20 12:55 ABG HCO3 24.3 mmol/L (20.0-26.0) 07/29/20 12:55 ABG O2 Saturation 98.3 % (95.0-99.0) 07/29/20 12:55 Calcium 8.3 mg/dL (8.4-10.2) L 08/08/20 05:04 Medications & Allergies - Medications Allergies/Adverse Reactions: Allergies No Known Allergies Allergy (Verified 05/01/15 08:52) Home Medications: Home Medications Medication Instructions Recorded Confirmed Last Taken Type Calcium Acetate [Phoslo] 667 mg PO TID 07/24/20 07/24/20 Unknown History Fenofibrate 160 mg PO QDAY 07/24/20 07/24/20 Unknown History Gabapentin [Neurontin] 100 mg PO Q8HR 07/24/20 07/24/20 Unknown History HYDROcodone/ACETAMINOPHEN 1 each PO Q8HR PRN 07/24/20 07/24/20 Unknown History [Hydrocodone-Acetamin 5-300 mg] Losartan Potassium 100 mg PO QDAY 07/24/20 07/24/20 Unknown History Montelukast [Singulair] 10 mg PO QPM 07/24/20 07/24/20 Unknown History Sevelamer Carbonate [Renvela] 800 mg PO TIDWM 07/24/20 07/24/20 Unknown History Simvastatin 40 mg PO QDAY 07/24/20 07/24/20 Unknown History allopurinoL [Zyloprim] 100 mg PO QDAY 07/24/20 07/24/20 Unknown History traZODone [Desyrel] 50 mg PO QHS 07/24/20 07/24/20 Unknown History traZODone [Desyrel] 50 mg PO QHS 07/24/20 07/24/20 Unknown History Active Medications: Generic Name Dose Route Start Last Admin Trade Name Freq PRN Reason Stop Dose Admin Acetaminophen 650 mg 07/24/20 12:34 08/07/20 05:33 Acetaminophen 325 Mg Tab PO 650 mg Q4H PRN Administration Pain MILD(1-3)/Fever >100.5/ANDRADE Acetaminophen 650 mg 07/31/20 13:52 07/31/20 16:11 Acetaminophen 650 Mg Rect Supp SD 650 mg Q4H PRN Administration Fever >101 Albuterol 2.5 mg 07/24/20 12:30 08/08/20 17:23 Albuterol 2.5 Mg/3 Ml Nebu IH 2.5 mg Q4HRT PRN Administration Shortness Of Breath Allopurinol 100 mg 07/25/20 10:00 08/08/20 14:27 Allopurinol 100 Mg Tab PO 100 mg QDAY SADAF Administration Aspirin 81 mg 07/30/20 16:00 08/08/20 14:24 Aspirin Ec 81 Mg Tab PO 81 mg QDAY SADAF Administration Calcium Acetate 667 mg 07/24/20 17:00 08/08/20 16:59 Calcium Acetate 667 Mg Cap PO Not Given TIDWM SADAF Carvedilol 6.25 mg 07/24/20 22:00 08/08/20 21:33 Carvedilol 6.25 Mg Tab PO 6.25 mg BID SADAF Administration Clopidogrel Bisulfate 75 mg 07/31/20 10:00 08/08/20 14:24 Clopidogrel 75 Mg Tab PO 75 mg QDAY SADAF Administration Dextrose 50 ml 07/31/20 08:37 08/08/20 05:22 Dextrose 50% In Water (25gm) 50 Ml Syringe IV 15 ml Q30MIN PRN Administration Hypoglycemia Protocol Doxazosin Mesylate 4 mg 07/26/20 10:00 08/08/20 14:14 Doxazosin 4 Mg Tab PO 4 mg DAILY SADAF Administration Fenofibrate 145 mg 07/25/20 10:00 08/08/20 14:27 Fenofibrate 145 Mg Tab PO 145 mg DAILY SADAF Administration Ferrous Sulfate 325 mg 07/24/20 22:00 08/08/20 21:33 Ferrous Sulfate 325 Mg Tab PO 325 mg BID SADAF Administration Fish Oil 1,000 mg 07/25/20 10:00 08/08/20 14:22 [place]-3 Fatty Acids/Fish Oil 1 Gram Cap PO 1,000 mg DAILY SADAF Administration Hydralazine HCl 50 mg 07/28/20 22:00 08/09/20 06:06 Hydralazine 25 Mg Tab PO 50 mg Q8HR SADAF Administration Hydralazine HCl 10 mg 07/28/20 16:22 08/02/20 08:46 Hydralazine 20 Mg/1 Ml Inj IV 10 mg Q6H PRN Administration Blood Pressure Dextrose 1,000 mls @ 30 mls/hr 07/31/20 12:00 08/08/20 09:28 D10w IV 75 mls/hr DIRECT SADAF Administration Ceftriaxone Sodium 1 gm in 50 mls @ 100 mls/hr 08/06/20 23:45 08/08/20 22:44 Rocephin/Ns 1 Gm/50 Ml IV 100 mls/hr Q24H SADAF Administration Protocol Norepinephrine 4 mg in 250 mls @ 7.5 mls/hr 08/07/20 09:39 Levophed Drip 4 Mg/Ns 250 Ml IV TITR SADAF Protocol 2 MCG/MIN Lidocaine HCl 1 applic 08/07/20 13:00 08/08/20 21:34 Butt Paste 50 Applic/100 Gm Jar TP 1 applic BID SADAF Administration Lidocaine/Epinephrine 20 ml 08/09/20 08:30 Lidocaine 2%/Epinephrine 1:100,000 Vial (20 Ml) INFILTRATI 08/09/20 14:00 ONCE SADAF Losartan Potassium 100 mg 07/25/20 10:00 08/08/20 14:19 Losartan 50 Mg Tab PO Not Given QDAY SADAF Montelukast Sodium 10 mg 07/24/20 18:00 08/08/20 17:55 Montelukast 10 Mg Tab PO 10 mg QPM SADAF Administration Multivit/Ca Carb/B Cmplx/FA/Prenat 1 cap 07/26/20 10:00 08/08/20 14:25 Folic Acid/Vit B Comp W-C 1 Mg (Renal Caps) PO 1 cap QDAY SADAF Administration Multivitamins/Minerals 1 each 07/25/20 10:00 08/08/20 14:26 Multivitamins,Ther W-Minerals Tab PO 1 each QDAY SADAF Administration Ondansetron HCl 4 mg 07/24/20 12:00 Ondansetron 4 Mg/2 Ml Inj IV Q8H PRN Nausea And Vomiting Pravastatin Sodium 80 mg 07/24/20 22:00 08/08/20 21:33 Pravastatin 80 Mg Tab PO 80 mg QHS SADAF Administration Sevelamer Carbonate 800 mg 07/24/20 17:00 08/08/20 16:59 Sevelamer Carbonate 800 Mg Tab PO Not Given TIDWM SADAF Sodium Chloride 10 ml 07/24/20 12:30 08/08/20 21:34 Sodium Chloride 0.9% 10 Ml Flush Syringe IV 10 ml BID SADAF Administration Sodium Chloride 10 ml 07/24/20 12:30 07/24/20 12:39 Sodium Chloride 0.9% 10 Ml Flush Syringe IV 10 ml PRN PRN Administration LINE FLUSH
--- NOTE | 2020-08-09 09:30 | Operative Report ---
Operative Report Operative Report: Exam: Ultrasound-guided vessel identification Clinical indication: Patient with a history of pseudoaneurysm to the right groin status post thrombin injection 2 days ago who yesterday was noted to have an enlarging pulsatile mass. Repeat ultrasound was performed which demonstrates that a new 1 lobe of pseudoaneurysm had developed. A pressure dressing was applied overnight. Date: 08/09/2020 Procedure: Following an explanation of the risks, benefits and alternatives; written informed consent was obtained from the patient's son. The patient was brought to the angiographic suite and placed in supine position on the examination table. His groin was prepped and draped in the usual sterile fashion. Ultrasound evaluation of the patient's groin demonstrated patent common femoral artery. Multiple pseudoaneurysm lobes were identified. All were thrombosed. No flow was identified in the pseudoaneurysm neck. A light sterile pressure dressing was then reapplied to the groin. No sedation was utilized. Continuous cardiopulmonary monitoring was performed under the guidance of radiologic nursing. The patient tolerated the procedure well. There were no immediate postprocedure complications. Impression: Ultrasound-guided vessel identification with identification of thrombosed pseudoaneurysms. No active pseudoaneurysm formation is identified. A pressure dressing was reapplied given the patient's propensity to develop pseudoaneurysms and this will be removed tomorrow.
[2020-08-09] MEDS: SEVELAMER CARBONATE 800 MG TAB PO SCH ×3 (11:08→17:31)
[2020-08-09] MEDS: CLOPIDOGREL 75 MG TAB PO SCH (11:08)
[2020-08-09] MEDS: FERROUS SULFATE 325 MG TAB PO SCH ×2 (11:08→23:08)
[2020-08-09] MEDS: LOSARTAN 50 MG TAB PO SCH (11:08)
[2020-08-09] MEDS: carvediloL 6.25 MG TAB PO SCH ×2 (11:08→22:06)
[2020-08-09] MEDS: CALCIUM ACETATE 667 MG CAP PO SCH ×3 (11:08→17:31)
[2020-08-09] MEDS: OMEGA-3 FATTY ACIDS/FISH OIL 1 GRAM CAP PO SCH (11:09)
[2020-08-09] MEDS: MULTIVITAMINS,THER W-MINERALS TAB PO SCH (11:09)
[2020-08-09] MEDS: FOLIC ACID/VIT B COMP W-C 1 MG (RENAL CAPS) PO SCH (11:09)
[2020-08-09] MEDS: ASPIRIN EC 81 MG TAB PO SCH (11:09)
[2020-08-09] MEDS: FENOFIBRATE 145 MG TAB PO SCH (11:09)
[2020-08-09] MEDS: allopurinoL 100 MG TAB PO SCH (11:09)
[2020-08-09] MEDS: BUTT PASTE 50 APPLIC/100 GM JAR TP SCH ×2 (11:10→23:06)
[2020-08-09] MEDS: DOXAZOSIN 4 MG TAB PO SCH (11:13)
--- NOTE | 2020-08-09 11:42 | Vascular Lab Report ---
Ultrasound right groin pseudoaneurysm INDICATION: Right groin pain with recent thrombin injection for right groin pseudoaneurysm TECHNIQUE: Real-time grayscale and Doppler imaging obtained of the right groin. FINDINGS: When compared to 08/07/2020, the previously demonstrated pseudoaneurysm sac remains but no o bvious internal flow is identified. IMPRESSION: No persistent flow within the right common femoral artery pseudoaneurysm sac identified o n the current exam. Signer Name: Tru Robert MD Signed: 08/09/2020 11:38 AM Workstation Name: [email or web address]
--- NOTE | 2020-08-09 12:05 | Progress Note ---
Assessment and Plan Cultures: 07/24/2020 blood culture: No growth A/P: 80-year-old male with ESRD on HD, diabetes, hypertension, prior CVA, vascular dementia: #Left foot cellulitis with gangrenous changes involving 1st and 2nd toes: Vascular following. Underwent re-vasc on 07/30/2020. #Acute encephalopathy: Neurology on board. MRI brain with advanced volume loss, no acute findings. #ESRD on HD: Renally dose antibiotics. #Scrotal wound: eval for abscess. Recs: -Continue empiric vancomycin and ceftriaxone for now -Follow-up scrotal ultrasound reading Donald Theodore MD [facility] ([facility]) O: [phone] F: [phone] Subjective Date of service: 08/09/20 Principal diagnosis: Peripheral vascular disease with gangrene Interval history: Afebrile, elevated white count of 12.4. Had pseudoaneurysm dealt with by vascular today. Objective - Exam Narrative Exam: Constitutional: awake and alert Head, Ears, Nose: Normocephalic, atraumatic. External ears, nose normal Eyes: Conjunctivae/corneas clear. No icterus. No ptosis. Neck: Supple, no meningeal signs Cardiovascular: S1, S2 normal. Respiratory: Good air entry, clear to auscultation bilaterally GI: Soft, non-tender; bowel sounds normal. No peritoneal signs Musculoskeletal: Left great toe and second toe with dry gangrenous change. R groin pseudoaneurysm resting Skin: Scabs on bilateral feet. Hem/Lymphatic: No palpable cervical or supraclavicular nodes. No lymphangitis Psych: no agitation Neurological: awake, answering basic questions. - Constitutional Vitals: Vital Signs Temp Pulse Resp BP Pulse Ox 99.0 F 75 18 159/75 96 08/09/20 04:05 08/09/20 06:06 08/09/20 04:05 08/09/20 06:06 08/09/20 10:36 Temperature -Last 24 Hours Temperature 99.0 F Temperature 98.2 F Temperature 99.5 F Temperature 98.6 F Temperature 97.6 F - Labs CBC & Chem 7: 08/08/20 05:04 08/08/20 05:04 Labs: Abnormal lab results 08/07/20 08/08/20 Range/Units 09:05 17:12 POC Glucose 106 H (70-105) mg/dL Crossmatch See Detail
--- NOTE | 2020-08-09 12:37 | Progress Note ---
Assessment and Plan Continue supplemental O2 Wean for sats >88% All others per primary team Subjective Date of service: 08/09/20 Principal diagnosis: Peripheral vascular disease with gangrene Interval history: No acute events. Successful transfer out of unit. BP stable. Oxygen requirement stable at 2 liters. Objective Vital Signs - 12hr 08/09/20 08/09/20 08/09/20 04:05 06:06 10:36 Temperature 99.0 F Pulse Rate 75 75 Respiratory 18 Rate Blood Pressure 159/75 159/75 O2 Sat by Pulse 91 96 Oximetry Constitutional: no acute distress, alert Eyes: non-icteric ENT: oropharynx moist Neck: supple Effort: normal Ascultation: Bilateral: clear (anteriorly) Cardiovascular: regular rate and rhythm (no mrg) Gastrointestinal: normoactive bowel sounds, soft Integumentary: other (dry gangrene 1st toe on L) Extremities: no cyanosis, no edema Neurologic: normal mental status, non-focal exam, pupils equal and round Psychiatric: mood appropriate, affect normal CBC and BMP: 08/08/20 05:04 08/08/20 05:04 ABG, PT/INR, D-dimer: ABG ABG pH 7.316 pH Units (7.350-7.450) L 07/29/20 12:55 ABG pCO2 48.6 mm Hg 07/29/20 12:55 ABG pO2 131.0 mm Hg (80.0-90.0) H 07/29/20 12:55 ABG O2 Saturation 98.3 % (95.0-99.0) 07/29/20 12:55 PT/INR, D-dimer PT 13.9 Sec. (12.2-14.9) 08/06/20 04:56 INR 1.08 (0.87-1.13) 08/06/20 04:56 Abnormal lab findings: Abnormal Labs 07/24/20 07/24/20 07/24/20 08:40 08:40 08:40 WBC 11.3 H RBC 3.40 L Hgb 11.0 L Hct 33.0 L MCV 97 H RDW 15.6 H Plt Count Lymph % (Auto) Powell % (Auto) Lymph # (Auto) Seg Neutrophils % Seg Neuts % (Manual) Lymphocytes % (Manual) Seg Neutrophils # Seg Neutrophils # Man Monocytes # (Manual) APTT 45.0 H ABG pH ABG pO2 ABG Hemoglobin Sodium Potassium Chloride Carbon Dioxide BUN 38 H Creatinine 4.7 H Glucose POC Glucose Calcium AST Total Protein Albumin Prealbumin Vitamin B12 Crossmatch 07/24/20 07/24/20 07/24/20 15:41 15:57 20:52 WBC RBC Hgb Hct MCV RDW Plt Count Lymph % (Auto) Powell % (Auto) Lymph # (Auto) Seg Neutrophils % Seg Neuts % (Manual) Lymphocytes % (Manual) Seg Neutrophils # Seg Neutrophils # Man Monocytes # (Manual) APTT ABG pH ABG pO2 ABG Hemoglobin Sodium Potassium Chloride Carbon Dioxide BUN Creatinine Glucose POC Glucose 18 L 128 H 108 H Calcium AST Total Protein Albumin Prealbumin Vitamin B12 Crossmatch 07/25/20 07/25/20 07/25/20 05:42 05:42 07:43 WBC 11.4 H RBC 3.02 L Hgb 9.5 L Hct 29.8 L MCV 99 H RDW 15.9 H Plt Count Lymph % (Auto) 9.0 L Powell % (Auto) Lymph # (Auto) 1.0 L Seg Neutrophils % 82.6 H Seg Neuts % (Manual) Lymphocytes % (Manual) Seg Neutrophils # 9.4 H Seg Neutrophils # Man Monocytes # (Manual) APTT ABG pH ABG pO2 ABG Hemoglobin Sodium Potassium 5.1 H Chloride Carbon Dioxide BUN 53 H Creatinine 6.1 H Glucose 122 H POC Glucose 108 H Calcium AST Total Protein Albumin Prealbumin Vitamin B12 Crossmatch 07/25/20 07/25/20 07/26/20 11:18 21:17 11:35 WBC RBC Hgb Hct MCV RDW Plt Count Lymph % (Auto) Powell % (Auto) Lymph # (Auto) Seg Neutrophils % Seg Neuts % (Manual) Lymphocytes % (Manual) Seg Neutrophils # Seg Neutrophils # Man Monocytes # (Manual) APTT ABG pH ABG pO2 ABG Hemoglobin Sodium Potassium Chloride Carbon Dioxide BUN Creatinine Glucose POC Glucose 133 H 68 L 45 L Calcium AST Total Protein Albumin Prealbumin Vitamin B12 Crossmatch 07/26/20 07/26/20 07/26/20 12:27 12:51 16:27 WBC RBC Hgb Hct MCV RDW Plt Count Lymph % (Auto) Powell % (Auto) Lymph # (Auto) Seg Neutrophils % Seg Neuts % (Manual) Lymphocytes % (Manual) Seg Neutrophils # Seg Neutrophils # Man Monocytes # (Manual) APTT ABG pH ABG pO2 ABG Hemoglobin Sodium Potassium Chloride Carbon Dioxide BUN Creatinine Glucose POC Glucose 65 L 124 H 52 L Calcium AST Total Protein Albumin Prealbumin Vitamin B12 Crossmatch 07/26/20 07/27/20 07/27/20 18:13 05:21 05:21 WBC 11.5 H RBC 3.16 L Hgb 10.0 L Hct 29.8 L MCV 95 H RDW Plt Count Lymph % (Auto) Powell % (Auto) Lymph # (Auto) Seg Neutrophils % Seg Neuts % (Manual) Lymphocytes % (Manual) Seg Neutrophils # Seg Neutrophils # Man Monocytes # (Manual) APTT ABG pH ABG pO2 ABG Hemoglobin Sodium Potassium Chloride Carbon Dioxide BUN 45 H Creatinine 5.6 H Glucose POC Glucose 147 H Calcium AST Total Protein Albumin Prealbumin Vitamin B12 Crossmatch 07/27/20 07/27/20 07/27/20 07:37 09:10 16:25 WBC RBC Hgb Hct MCV RDW Plt Count Lymph % (Auto) Powell % (Auto) Lymph # (Auto) Seg Neutrophils % Seg Neuts % (Manual) Lymphocytes % (Manual) Seg Neutrophils # Seg Neutrophils # Man Monocytes # (Manual) APTT ABG pH ABG pO2 ABG Hemoglobin Sodium Potassium Chloride Carbon Dioxide BUN Creatinine Glucose POC Glucose 41 L 129 H Calcium AST Total Protein Albumin Prealbumin 0.116 L Vitamin B12 Crossmatch 07/27/20 07/27/20 07/28/20 16:25 21:16 11:41 WBC RBC Hgb Hct MCV RDW Plt Count Lymph % (Auto) Powell % (Auto) Lymph # (Auto) Seg Neutrophils % Seg Neuts % (Manual) Lymphocytes % (Manual) Seg Neutrophils # Seg Neutrophils # Man Monocytes # (Manual) APTT ABG pH ABG pO2 ABG Hemoglobin Sodium Potassium Chloride Carbon Dioxide BUN Creatinine Glucose POC Glucose 123 H 117 H Calcium AST Total Protein Albumin Prealbumin Vitamin B12 980.0 H Crossmatch 07/28/20 07/28/20 07/29/20 15:47 22:07 07:42 WBC RBC Hgb Hct MCV RDW Plt Count Lymph % (Auto) Powell % (Auto) Lymph # (Auto) Seg Neutrophils % Seg Neuts % (Manual) Lymphocytes % (Manual) Seg Neutrophils # Seg Neutrophils # Man Monocytes # (Manual) APTT ABG pH ABG pO2 ABG Hemoglobin Sodium Potassium Chloride Carbon Dioxide BUN Creatinine Glucose POC Glucose 148 H 119 H 106 H Calcium AST Total Protein Albumin Prealbumin Vitamin B12 Crossmatch 07/29/20 07/29/20 07/29/20 11:08 12:55 22:46 WBC RBC Hgb Hct MCV RDW Plt Count Lymph % (Auto) Powell % (Auto) Lymph # (Auto) Seg Neutrophils % Seg Neuts % (Manual) Lymphocytes % (Manual) Seg Neutrophils # Seg Neutrophils # Man Monocytes # (Manual) APTT ABG pH 7.316 L ABG pO2 131.0 H ABG Hemoglobin 9.4 L Sodium Potassium Chloride Carbon Dioxide BUN Creatinine Glucose POC Glucose 117 H 125 H Calcium AST Total Protein Albumin Prealbumin Vitamin B12 Crossmatch 07/30/20 07/30/20 07/30/20 04:17 04:17 07:50 WBC RBC 2.95 L Hgb 9.4 L Hct 28.4 L MCV 96 H RDW Plt Count Lymph % (Auto) Powell % (Auto) Lymph # (Auto) Seg Neutrophils % Seg Neuts % (Manual) Lymphocytes % (Manual) Seg Neutrophils # Seg Neutrophils # Man Monocytes # (Manual) APTT ABG pH ABG pO2 ABG Hemoglobin Sodium Potassium Chloride Carbon Dioxide BUN 46 H Creatinine 5.8 H Glucose POC Glucose 47 L Calcium 8.3 L AST Total Protein Albumin Prealbumin Vitamin B12 Crossmatch 07/30/20 07/30/20 07/31/20 16:33 21:25 07:26 WBC RBC Hgb Hct MCV RDW Plt Count Lymph % (Auto) Powell % (Auto) Lymph # (Auto) Seg Neutrophils % Seg Neuts % (Manual) Lymphocytes % (Manual) Seg Neutrophils # Seg Neutrophils # Man Monocytes # (Manual) APTT ABG pH ABG pO2 ABG Hemoglobin Sodium Potassium 5.4 H Chloride Carbon Dioxide BUN 50 H Creatinine 5.8 H Glucose 112 H POC Glucose 123 H 59 L Calcium 8.1 L AST Total Protein Albumin Prealbumin Vitamin B12 Crossmatch 07/31/20 07/31/20 07/31/20 09:03 10:47 14:09 WBC RBC 2.73 L Hgb 8.7 L Hct 26.6 L MCV 97 H RDW 15.3 H Plt Count Lymph % (Auto) Powell % (Auto) 8.7 H Lymph # (Auto) Seg Neutrophils % 74.7 H Seg Neuts % (Manual) Lymphocytes % (Manual) Seg Neutrophils # Seg Neutrophils # Man Monocytes # (Manual) APTT ABG pH ABG pO2 ABG Hemoglobin Sodium Potassium Chloride Carbon Dioxide BUN 29 H Creatinine 4.3 H Glucose 106 H POC Glucose 48 L Calcium 8.0 L AST Total Protein Albumin Prealbumin Vitamin B12 Crossmatch 07/31/20 07/31/20 08/01/20 16:01 20:04 10:42 WBC RBC Hgb Hct MCV RDW Plt Count Lymph % (Auto) Powell % (Auto) Lymph # (Auto) Seg Neutrophils % Seg Neuts % (Manual) Lymphocytes % (Manual) Seg Neutrophils # Seg Neutrophils # Man Monocytes # (Manual) APTT ABG pH ABG pO2 ABG Hemoglobin Sodium Potassium Chloride Carbon Dioxide BUN Creatinine Glucose POC Glucose 69 L 111 H 109 H Calcium AST Total Protein Albumin Prealbumin Vitamin B12 Crossmatch 08/01/20 08/02/20 08/03/20 13:49 08:45 07:55 WBC RBC Hgb Hct MCV RDW Plt Count Lymph % (Auto) Powell % (Auto) Lymph # (Auto) Seg Neutrophils % Seg Neuts % (Manual) Lymphocytes % (Manual) Seg Neutrophils # Seg Neutrophils # Man Monocytes # (Manual) APTT ABG pH ABG pO2 ABG Hemoglobin Sodium 134 L Potassium Chloride Carbon Dioxide BUN 38 H Creatinine 5.7 H Glucose 105 H POC Glucose 69 L 38 L Calcium 8.2 L AST Total Protein Albumin Prealbumin Vitamin B12 Crossmatch 08/03/20 08/03/20 08/03/20 08:03 11:32 12:30 WBC RBC Hgb Hct MCV RDW Plt Count Lymph % (Auto) Powell % (Auto) Lymph # (Auto) Seg Neutrophils % Seg Neuts % (Manual) Lymphocytes % (Manual) Seg Neutrophils # Seg Neutrophils # Man Monocytes # (Manual) APTT ABG pH ABG pO2 ABG Hemoglobin Sodium Potassium Chloride Carbon Dioxide BUN Creatinine Glucose POC Glucose 223 H 136 H 119 H Calcium AST Total Protein Albumin Prealbumin Vitamin B12 Crossmatch 08/03/20 08/04/20 08/04/20 21:38 07:32 08:25 WBC RBC Hgb Hct MCV RDW Plt Count Lymph % (Auto) Powell % (Auto) Lymph # (Auto) Seg Neutrophils % Seg Neuts % (Manual) Lymphocytes % (Manual) Seg Neutrophils # Seg Neutrophils # Man Monocytes # (Manual) APTT ABG pH ABG pO2 ABG Hemoglobin Sodium Potassium Chloride Carbon Dioxide BUN Creatinine Glucose POC Glucose 133 H 54 L 126 H Calcium AST Total Protein Albumin Prealbumin Vitamin B12 Crossmatch 08/04/20 08/04/20 08/04/20 12:06 12:06 15:51 WBC RBC 2.63 L Hgb 8.4 L Hct 25.4 L MCV 97 H RDW Plt Count Lymph % (Auto) 7.6 L Powell % (Auto) Lymph # (Auto) 0.6 L Seg Neutrophils % 81.8 H Seg Neuts % (Manual) Lymphocytes % (Manual) Seg Neutrophils # Seg Neutrophils # Man Monocytes # (Manual) APTT ABG pH ABG pO2 ABG Hemoglobin Sodium 132 L Potassium Chloride 96.8 L Carbon Dioxide BUN Creatinine 4.0 H Glucose 131 H POC Glucose 126 H Calcium 7.8 L AST Total Protein 5.3 L Albumin 2.2 L Prealbumin Vitamin B12 Crossmatch 08/05/20 08/05/20 08/05/20 09:34 09:34 21:22 WBC RBC 2.54 L Hgb 8.0 L Hct 24.3 L MCV 95 H RDW 15.3 H Plt Count Lymph % (Auto) 11.3 L Powell % (Auto) 7.7 H Lymph # (Auto) 1.0 L Seg Neutrophils % 77.6 H Seg Neuts % (Manual) Lymphocytes % (Manual) Seg Neutrophils # Seg Neutrophils # Man Monocytes # (Manual) APTT ABG pH ABG pO2 ABG Hemoglobin Sodium 132 L Potassium Chloride 95.2 L Carbon Dioxide BUN 24 H Creatinine 5.0 H Glucose 106 H POC Glucose 50 L Calcium 8.0 L AST Total Protein 5.0 L Albumin 2.1 L Prealbumin Vitamin B12 Crossmatch 08/06/20 08/06/20 08/07/20 04:56 04:56 04:56 WBC 23.6 H RBC 2.55 L 1.82 L Hgb 8.1 L 5.8 L* Hct 24.5 L 17.5 L* D MCV 96 H 97 H RDW 15.4 H Plt Count 129 L Lymph % (Auto) 10.9 L Powell % (Auto) 7.9 H Lymph # (Auto) 1.1 L Seg Neutrophils % 79.0 H Seg Neuts % (Manual) 89.0 H Lymphocytes % (Manual) 6.0 L Seg Neutrophils # 8.2 H Seg Neutrophils # Man 21.0 H Monocytes # (Manual) 1.2 H APTT ABG pH ABG pO2 ABG Hemoglobin Sodium 127 L Potassium Chloride 91.9 L Carbon Dioxide BUN 28 H Creatinine 5.8 H Glucose POC Glucose Calcium 7.9 L AST Total Protein 5.0 L Albumin 1.9 L Prealbumin Vitamin B12 Crossmatch 08/07/20 08/07/20 08/07/20 04:56 08:56 09:05 WBC RBC Hgb 6.6 L Hct 20.2 L MCV RDW Plt Count Lymph % (Auto) Powell % (Auto) Lymph # (Auto) Seg Neutrophils % Seg Neuts % (Manual) Lymphocytes % (Manual) Seg Neutrophils # Seg Neutrophils # Man Monocytes # (Manual) APTT ABG pH ABG pO2 ABG Hemoglobin Sodium 133 L Potassium Chloride 96.2 L Carbon Dioxide 31 H BUN Creatinine 3.7 H Glucose 132 H POC Glucose Calcium 7.8 L AST 43 H Total Protein 4.9 L Albumin 2.0 L Prealbumin Vitamin B12 Crossmatch See Detail 08/07/20 08/08/20 08/08/20 23:55 01:08 05:04 WBC 12.4 H RBC 3.02 L Hgb 9.4 L Hct 27.5 L D MCV RDW 17.2 H Plt Count Lymph % (Auto) 7.1 L Powell % (Auto) Lymph # (Auto) 0.9 L Seg Neutrophils % 85.1 H Seg Neuts % (Manual) Lymphocytes % (Manual) Seg Neutrophils # 10.5 H Seg Neutrophils # Man Monocytes # (Manual) APTT ABG pH ABG pO2 ABG Hemoglobin Sodium Potassium Chloride Carbon Dioxide BUN Creatinine Glucose POC Glucose 68 L 68 L Calcium AST Total Protein Albumin Prealbumin Vitamin B12 Crossmatch 08/08/20 08/08/20 08/08/20 05:04 05:19 12:01 WBC RBC Hgb Hct MCV RDW Plt Count Lymph % (Auto) Powell % (Auto) Lymph # (Auto) Seg Neutrophils % Seg Neuts % (Manual) Lymphocytes % (Manual) Seg Neutrophils # Seg Neutrophils # Man Monocytes # (Manual) APTT ABG pH ABG pO2 ABG Hemoglobin Sodium 133 L Potassium Chloride 96.6 L Carbon Dioxide BUN 24 H Creatinine 4.7 H Glucose POC Glucose 68 L 122 H Calcium 8.3 L AST 48 H Total Protein 5.2 L Albumin 2.2 L Prealbumin Vitamin B12 Crossmatch 08/08/20 17:12 WBC RBC Hgb Hct MCV RDW Plt Count Lymph % (Auto) Powell % (Auto) Lymph # (Auto) Seg Neutrophils % Seg Neuts % (Manual) Lymphocytes % (Manual) Seg Neutrophils # Seg Neutrophils # Man Monocytes # (Manual) APTT ABG pH ABG pO2 ABG Hemoglobin Sodium Potassium Chloride Carbon Dioxide BUN Creatinine Glucose POC Glucose 106 H Calcium AST Total Protein Albumin Prealbumin Vitamin B12 Crossmatch
[2020-08-09 15:26] LABS: Hematocrit 24.2 % (35.5-45.6); Hemoglobin 8.2 gm/dl (11.8-15.2); Mean Corpuscular HGB Conc 34 % (32-34); Mean Corpuscular Volume 93 fl (84-94); Platelet Count 142 K/mm3 (140-440); Red Blood Count 2.62 M/mm3 (3.65-5.03); Red Cell Distribution Width 16.7 % (13.2-15.2)
--- NOTE | 2020-08-09 16:18 | Ultrasound Report ---
Scrotal Ultrasound HISTORY: Possible abscess. TECHNIQUE: Grayscale and color imaging performed. COMPARISON: CT abdomen/pelvis from 07/30/2020 FINDINGS: Limited imaging of the scrotum shows right-sided orchitis with diffuse hyperemia and there is also a complex collection which is labeled to be inferior to the scrotum and likely reflects absce ss formation. On these limited images this collection measures approximately 3 cm in maximal dimensio n. I am unable to determine whether or not this is separate from the testicular space (in other words , as would be seen with a pyocele). IMPRESSION: Grossly abnormal scrotum with right-sided orchitis, abscess, and possible pyocele. 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 Findings were called to Dr. Theodore and Dr. Malhotra at approximately 3:00 PM central time today. Signer Name: Lorenzo Santiago MD Signed: 08/09/2020 4:13 PM Workstation Name: [id number]
--- NOTE | 2020-08-09 16:33 | Progress Note ---
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 Placed pressure dressing over the area, s/p Ultrasound-guided vessel identification today and no thrombin injection required Continue pressure compression, plan to remove the compression tomorrow 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 Verbal prompting, verbal redirection Continue aspirin and Plavix --Gout Continue allopurinol --BPH Continue doxazosin --Moderate protein calorie malnutrition Nutrition referral Diet supplements --Hypoglycemia Due to poor intake Continue diet D10W #ESRD Hemodialysis as scheduled Nephrology following --Acute hypoxia with respiratory failure-continue supplemental O2 as needed --Stage 1 pressure ulcer sacrum-wound care -- Scrotal wound with drainage Need to rule out scrotal abscess US scrotum ordered ID consulted Urology consulted Antibiotics - vancomycin, ceftriaxone --Advance care planning May need placement. Sons number is Timmy Beckman --DVT prophylaxis SCD to bilateral lower extremities while in bed, prophylactic anticoagulation. Brief history: 80 YO Male with ESRD on HD (M, W, F), HTN, DM, Vascular Dementia, Cerebral Atherosclerosis presents to ED with confusion. As per the patient's the pa tient has experienced increased weakness and confusion over the past 1 month with increased bedbound status. In the ER, patient found to have end-stage renal disease, left foot cellulitis complicated by systemic inflammatory response syndrome, as well as peripheral vascular disease. Patient admitted to medical floor and initiated on IV antibiotic therapy. Nephrology and vascular team consulted in ED. CT: Head: Negative for acute pathology. Daily clinical course: 07/25: Discussed with the IR, patient with new onset Altered mental status from the last time they saw the patient. Will begin work-up for possible underlying sepsis etiology or source unknown at this time. Will obtain ID consulted and Neurology. Continue abx, attempted to reach family. Concern for stroke is low but considering hx of vasculopathy will obtain Neurology Will also obtain wound consultation. 07/26: Some improvement noted with initiation of antibiotics. We will continue current management patient continues on hemodialysis. Will await further vascular improvement as patient is beginning to show some improvement. Discussed with case management. Apparently the person that came with the patient is not the patient's but a caregiver H&P portion of this note has been corrected. Continue wound care and every 2 hours turns. 07/27: Continue current management plan. Vascular to re-evaluate. Continue abx. MRI with no acute pathology. Agree with the D5 as patient still has some intermittent confusion. Continue to monitor. Speech evaluation for swallow management. 07/28: Patient clinically stable, continue supportive care, abx, awaiting full vascular input. cONTINUE D5 for now. 07/29: We will give patient dose of Lasix, get a chest x-ray. Discussed with nursing staff could be that the patient was appear hypoxic due to cold extremities. Will obtain an ABG. We will also obtain a pulmonary consult for clearance for anticipated vascular procedure in a.m. 07/30: Noted hypoglycemia this morning we will give D50 and amp. Patient is for procedure today. Discussed with vascular. Per discussion with nursing saturation has improved. Pulmonary input is noted. He was admitted for digital gangrene on multiple digits both fingers and toes. Was also noted to be septic requiring treatment which has led to improvement in his mental status. 07/31. Now status post angiography and angioplasty of distal femoral arteries. Now on antiplatelets. He has been having episodes of hypoglycemia. Started him on D10 water. Continue to monitor closely for now. CT head ordered to rule out any CVA though not likely. Vascular surgery following. 08/01. Patient remains lethargic. Discontinued pain medications and gabapentin. On IV antibiotics. Started on D10 water yesterday for hypoglycemia. If lethargy does not improve, will place an NG tube. CT head negative for any stroke. 08/02. More responsive today. Still gets agitated and pulling on his IV lines so was placed on restraints. Needs to have a repeat swallow evaluation. Blood glucose is table. 08/03. Responsive today. Alert and oriented x2. Will get vascular to reevaluate. Needs to have revascularization of LE vessels as per vascular. Passed swallow evaluation yesterday and has been started on a diet. 08/04. Plan for vascularization of the extremities as per vascular. 08/05. No complaints today. Plan for revascularization tomorrow. NPO after midnight 08/06. Plan for revascularization today. He will need placement but PT yet to see. 08/07: Status post revascularization yesterday. H&H dropped today to 5.6. Patient noted to form pseudoaneurysm at the revascularization area. Patient also noted to have low BP -ordered for packed RBC and transferred to ICU for close monitoring. Continue D10 W 08/08: Status post hemodialysis today, H&H stable, vitals stable. Transfer out to telemetry. Patient has been seen by vascular surgeon, plan for thrombin injection tomorrow unless pseudoaneurysm thrombosis overnight with compression. N.p.o. after midnight 08/09: s/p Ultrasound-guided vessel identification today and no thrombin injection required. Continue pressure compression, plan to remove the compression tomorrow. Reconsult PT, continue IV antibiotics. Will consult urology for possible scrotal abscess Subjective Date of service: 08/09/20 Principal diagnosis: Peripheral vascular disease with gangrene Interval history: Patient seen and examined BP stable, patient more alert and awake today Status post HD at bedside H&H stable following transfusion Objective - Exam Narrative Exam: GENERAL: Alert and awake HEAD: No signs of head trauma. EYES: Pupils are equal. Extraocular motions intact. MOUTH: Oropharynx is normal. NECK: No adenopathy, no JVD. CHEST: Chest with diminished breath sounds bilaterally. No wheezes, rales, or rhonchi. CARDIAC: normal S1 and S2, without murmurs, gallops, or rubs. ABDOMEN: Soft, non tender and non distended. No rebound or guarding, and no masses palpated. Bowel Sounds normal. MUSCULOSKELETAL: LLE: Gangrenous looking big toe, proximal area of the leg feels warm to touch. NEUROLOGIC EXAM: Generalized weakness SKIN: No obvious lesions - Constitutional Vitals: Vital Signs - 12hr 08/09/20 08/09/20 08/09/20 06:06 10:36 10:57 Temperature 98.6 F Pulse Rate 75 67 Respiratory 20 Rate Blood Pressure 159/75 176/60 O2 Sat by Pulse 96 77 L Oximetry 08/09/20 08/09/20 08/09/20 14:16 14:17 15:58 Temperature 98.6 F Pulse Rate 70 71 76 Respiratory 18 20 Rate Blood Pressure 150/40 150/40 168/50 O2 Sat by Pulse 94 100 Oximetry - Labs CBC & Chem 7: 08/09/20 14:54 08/09/20 13:27 Labs: Abnormal lab results 08/08/20 08/09/20 08/09/20 Range/Units 17:12 13:27 14:54 RBC 2.62 L (3.65-5.03) M/mm3 Hgb 8.2 L (11.8-15.2) gm/dl Hct 24.2 L (35.5-45.6) % RDW 16.7 H (13.2-15.2) % Creatinine 3.8 H (0.8-1.3) mg/dL Glucose 115 H (75-100) mg/dL POC Glucose 106 H (70-105) mg/dL Calcium 8.0 L (8.4-10.2) mg/dL
[2020-08-09] MEDS: MONTELUKAST 10 MG TAB PO SCH (17:31)
[2020-08-09] MEDS: DEXTROSE 10% IN WATER 1,000 ML IV SCH (17:46)
[2020-08-09] MEDS: ALBUTEROL 2.5 MG/3 ML NEBU IH PRN (18:28)
[2020-08-09] MEDS: ACETAMINOPHEN 325 MG TAB PO PRN (22:05)
[2020-08-09] MEDS: PRAVASTATIN 80 MG TAB PO SCH (22:06)
[2020-08-09] MEDS: cefTRIAXone/NS 1 GM/50 ML 1 GM/50 ML BAG IV SCH (23:09)
[2020-08-10] MEDS: DEXTROSE 50% IN WATER (25GM) 50 ML SYRINGE IV PRN ×2 (00:08→05:33)
[2020-08-10] MEDS: hydrALAZINE 25 MG TAB PO SCH ×3 (05:33→22:35)
[2020-08-10] MEDS: SEVELAMER CARBONATE 800 MG TAB PO SCH ×3 (08:41→16:35)
[2020-08-10] MEDS: CALCIUM ACETATE 667 MG CAP PO SCH ×3 (08:41→16:35)
[2020-08-10] MEDS: BUTT PASTE 50 APPLIC/100 GM JAR TP SCH (09:00)
[2020-08-10] MEDS: FENOFIBRATE 145 MG TAB PO SCH (09:37)
[2020-08-10] MEDS: MULTIVITAMINS,THER W-MINERALS TAB PO SCH (09:37)
[2020-08-10] MEDS: allopurinoL 100 MG TAB PO SCH (09:37)
[2020-08-10] MEDS: ASPIRIN EC 81 MG TAB PO SCH (09:37)
[2020-08-10] MEDS: CLOPIDOGREL 75 MG TAB PO SCH (09:37)
--- NOTE | 2020-08-10 09:39 | Progress Note ---
Subjective Date of service: 08/10/20 Principal diagnosis: Peripheral vascular disease with gangrene Interval history: Assessment: * ESRD * HTN * PVD * Gangrene * Anemia in ESRD Plan: * Continue MWF * uf as tolerated, Sodium noted, fluid restriction * renal diet * dialysis access is a central venous catheter. Site c/d/i * Continue antihypertensives * Continue epogen q treatment * Keep MAP>65 * Diet and nutrition: Patient needs to be on high protein diet - 1.2-1.4 g/kg/d * Multiple other complex comorbidities currently being managed by primary team * peripheral arterial disease/gangrene, vascular note reviewed. * Acute encephalopathy - improving, pain medications discontinued. CT head negative for stroke. Management per primary. * Will continue to follow and make recommendation for renal standpoint Subjective Principal diagnosis: Peripheral vascular disease with gangrene Interval history: More alert today Patient was seen for his renal issues Nursing, interdisciplinary and consult notes were reviewed Vitals, input and output, medications and labs were reviewed Objective - Exam Narrative Exam: General: No acute distress HEENT: Oral mucosa moist Neck: Supple, no JVD Chest: Clear to auscultation bilaterally Heart: RRR, S1 and S2, no pericardial rub Abdomen: Soft, nontender, no renal bruit Extremity: No peripheral cyanosis, edema. LE dressing noted. Neurological: Awake and alert Dermatology: No skin rash Psych: Calm and cooperative Musculoskeletal: No joint effusion Objective - Vital Signs Vital signs: Vital Signs - 12hr 08/09/20 08/09/20 08/09/20 22:00 22:06 23:24 Temperature Pulse Rate 68 68 147 H Respiratory Rate Blood Pressure 151/38 159/46 Blood Pressure [Left] O2 Sat by Pulse 94 Oximetry 08/10/20 08/10/20 08/10/20 00:00 01:07 03:30 Temperature 98.8 F 98.1 F Pulse Rate 78 63 Respiratory 19 18 18 Rate Blood Pressure 144/40 Blood Pressure 136/66 [Left] O2 Sat by Pulse 93 96 83 L Oximetry 08/10/20 08/10/20 08/10/20 03:31 05:33 07:16 Temperature Pulse Rate 63 Respiratory 18 Rate Blood Pressure 144/40 Blood Pressure [Left] O2 Sat by Pulse 95 96 Oximetry 08/10/20 08/10/20 07:26 09:26 Temperature 97.9 F Pulse Rate 68 Respiratory 18 Rate Blood Pressure 147/41 Blood Pressure [Left] O2 Sat by Pulse 93 91 Oximetry - Lab 08/09/20 14:54 08/09/20 13:27 Most recent lab results ABG pH 7.316 pH Units (7.350-7.450) L 07/29/20 12:55 ABG pCO2 48.6 mm Hg 07/29/20 12:55 ABG pO2 131.0 mm Hg (80.0-90.0) H 07/29/20 12:55 ABG HCO3 24.3 mmol/L (20.0-26.0) 07/29/20 12:55 ABG O2 Saturation 98.3 % (95.0-99.0) 07/29/20 12:55 Calcium 8.0 mg/dL (8.4-10.2) L 08/09/20 13:27 Medications & Allergies - Medications Allergies/Adverse Reactions: Allergies No Known Allergies Allergy (Verified 05/01/15 08:52) Home Medications: Home Medications Medication Instructions Recorded Confirmed Last Taken Type Calcium Acetate [Phoslo] 667 mg PO TID 07/24/20 07/24/20 Unknown History Fenofibrate 160 mg PO QDAY 07/24/20 07/24/20 Unknown History Gabapentin [Neurontin] 100 mg PO Q8HR 07/24/20 07/24/20 Unknown History HYDROcodone/ACETAMINOPHEN 1 each PO Q8HR PRN 07/24/20 07/24/20 Unknown History [Hydrocodone-Acetamin 5-300 mg] Losartan Potassium 100 mg PO QDAY 07/24/20 07/24/20 Unknown History Montelukast [Singulair] 10 mg PO QPM 07/24/20 07/24/20 Unknown History Sevelamer Carbonate [Renvela] 800 mg PO TIDWM 07/24/20 07/24/20 Unknown History Simvastatin 40 mg PO QDAY 07/24/20 07/24/20 Unknown History allopurinoL [Zyloprim] 100 mg PO QDAY 07/24/20 07/24/20 Unknown History traZODone [Desyrel] 50 mg PO QHS 07/24/20 07/24/20 Unknown History traZODone [Desyrel] 50 mg PO QHS 07/24/20 07/24/20 Unknown History Active Medications: Generic Name Dose Route Start Last Admin Trade Name Freq PRN Reason Stop Dose Admin Acetaminophen 650 mg 07/24/20 12:34 08/09/20 22:05 Acetaminophen 325 Mg Tab PO 650 mg Q4H PRN Administration Pain MILD(1-3)/Fever >100.5/ANDRADE Acetaminophen 650 mg 07/31/20 13:52 07/31/20 16:11 Acetaminophen 650 Mg Rect Supp DE 650 mg Q4H PRN Administration Fever >101 Albuterol 2.5 mg 07/24/20 12:30 08/09/20 18:28 Albuterol 2.5 Mg/3 Ml Nebu IH 2.5 mg Q4HRT PRN Administration Shortness Of Breath Allopurinol 100 mg 07/25/20 10:00 08/09/20 11:09 Allopurinol 100 Mg Tab PO 100 mg QDAY SADAF Administration Aspirin 81 mg 07/30/20 16:00 08/09/20 11:09 Aspirin Ec 81 Mg Tab PO 81 mg QDAY SADAF Administration Calcium Acetate 667 mg 07/24/20 17:00 08/10/20 08:41 Calcium Acetate 667 Mg Cap PO 667 mg TIDWM SADAF Administration Carvedilol 6.25 mg 07/24/20 22:00 08/09/20 22:06 Carvedilol 6.25 Mg Tab PO 6.25 mg BID SADAF Administration Clopidogrel Bisulfate 75 mg 07/31/20 10:00 08/09/20 11:08 Clopidogrel 75 Mg Tab PO 75 mg QDAY SADAF Administration Dextrose 50 ml 07/31/20 08:37 08/10/20 05:33 Dextrose 50% In Water (25gm) 50 Ml Syringe IV 50 ml Q30MIN PRN Administration Hypoglycemia Protocol Doxazosin Mesylate 4 mg 07/26/20 10:00 08/09/20 11:13 Doxazosin 4 Mg Tab PO 4 mg DAILY SADAF Administration Fenofibrate 145 mg 07/25/20 10:00 08/09/20 11:09 Fenofibrate 145 Mg Tab PO 145 mg DAILY SADAF Administration Ferrous Sulfate 325 mg 07/24/20 22:00 08/09/20 23:08 Ferrous Sulfate 325 Mg Tab PO 325 mg BID SADAF Administration Fish Oil 1,000 mg 07/25/20 10:00 08/09/20 11:09 [place]-3 Fatty Acids/Fish Oil 1 Gram Cap PO 1,000 mg DAILY SADAF Administration Hydralazine HCl 50 mg 07/28/20 22:00 08/10/20 05:33 Hydralazine 25 Mg Tab PO 50 mg Q8HR SADAF Administration Hydralazine HCl 10 mg 07/28/20 16:22 08/02/20 08:46 Hydralazine 20 Mg/1 Ml Inj IV 10 mg Q6H PRN Administration Blood Pressure Dextrose 1,000 mls @ 30 mls/hr 07/31/20 12:00 08/09/20 17:46 D10w IV 75 mls/hr DIRECT SADAF Administration Ceftriaxone Sodium 1 gm in 50 mls @ 100 mls/hr 08/06/20 23:45 08/09/20 23:09 Rocephin/Ns 1 Gm/50 Ml IV 100 mls/hr Q24H SADAF Administration Protocol Clindamycin HCl 900 mg in 50 mls @ 100 mls/hr 08/09/20 17:00 08/10/20 08:41 Cleocin 900 Mg/50 Ml IV 100 mls/hr Q8H SADAF Administration Protocol Lidocaine HCl 1 applic 08/07/20 13:00 08/10/20 09:00 Butt Paste 50 Applic/100 Gm Jar TP Not Given BID SADAF Losartan Potassium 100 mg 07/25/20 10:00 08/09/20 11:08 Losartan 50 Mg Tab PO 100 mg QDAY SADAF Administration Montelukast Sodium 10 mg 07/24/20 18:00 08/09/20 17:31 Montelukast 10 Mg Tab PO 10 mg QPM SADAF Administration Multivit/Ca Carb/B Cmplx/FA/Prenat 1 cap 07/26/20 10:00 08/09/20 11:09 Folic Acid/Vit B Comp W-C 1 Mg (Renal Caps) PO 1 cap QDAY SADAF Administration Multivitamins/Minerals 1 each 07/25/20 10:00 08/09/20 11:09 Multivitamins,Ther W-Minerals Tab PO 1 each QDAY SADAF Administration Ondansetron HCl 4 mg 07/24/20 12:00 Ondansetron 4 Mg/2 Ml Inj IV Q8H PRN Nausea And Vomiting Pravastatin Sodium 80 mg 07/24/20 22:00 08/09/20 22:06 Pravastatin 80 Mg Tab PO 80 mg QHS SADAF Administration Sevelamer Carbonate 800 mg 07/24/20 17:00 08/10/20 08:41 Sevelamer Carbonate 800 Mg Tab PO 800 mg TIDWM SADAF Administration Sodium Chloride 10 ml 07/24/20 12:30 08/09/20 23:08 Sodium Chloride 0.9% 10 Ml Flush Syringe IV 10 ml BID SADAF Administration Sodium Chloride 10 ml 07/24/20 12:30 07/24/20 12:39 Sodium Chloride 0.9% 10 Ml Flush Syringe IV 10 ml PRN PRN Administration LINE FLUSH
--- NOTE | 2020-08-10 10:35 | Progress Note ---
Assessment and Plan 08/10/20: Given that oxygen requirement and sats have changed, will check stat CXR. I/O not accurate but could be volume up. This was his issue on admission as well. Will continue to follow. He does have mild diastolic dysfunction on Echo Continue supplemental O2 Wean for sats >88% All others per primary team Subjective Date of service: 08/10/20 Principal diagnosis: Peripheral vascular disease with gangrene Interval history: No acute pulmonary events. Was bumped up to 3 liters on yesterday. Sats in the low 90's this am. Objective Vital Signs - 12hr 08/09/20 08/10/20 08/10/20 23:24 00:00 01:07 Temperature 98.8 F Pulse Rate 147 H 78 Respiratory 19 18 Rate Respiratory Rate [Butt] Blood Pressure 159/46 Blood Pressure 136/66 [Left] O2 Sat by Pulse 94 93 96 Oximetry 08/10/20 08/10/20 08/10/20 03:30 03:31 05:33 Temperature 98.1 F Pulse Rate 63 63 Respiratory 18 Rate Respiratory Rate [Butt] Blood Pressure 144/40 144/40 Blood Pressure [Left] O2 Sat by Pulse 83 L 95 Oximetry 08/10/20 08/10/20 08/10/20 07:16 07:26 09:26 Temperature 97.9 F Pulse Rate 68 Respiratory 18 18 Rate Respiratory Rate [Butt] Blood Pressure 147/41 Blood Pressure [Left] O2 Sat by Pulse 96 93 91 Oximetry 08/10/20 09:43 Temperature Pulse Rate Respiratory Rate Respiratory 14 Rate [Butt] Blood Pressure Blood Pressure [Left] O2 Sat by Pulse Oximetry Constitutional: no acute distress, alert Eyes: non-icteric ENT: oropharynx moist Neck: supple Effort: normal Ascultation: Bilateral: clear (anteriorly) Cardiovascular: regular rate and rhythm (no mrg) Gastrointestinal: normoactive bowel sounds, soft Integumentary: other (dry gangrene 1st toe on L) Extremities: no cyanosis, no edema Neurologic: normal mental status, non-focal exam, pupils equal and round Psychiatric: mood appropriate, affect normal CBC and BMP: 08/09/20 14:54 08/09/20 13:27 ABG, PT/INR, D-dimer: ABG ABG pH 7.316 pH Units (7.350-7.450) L 07/29/20 12:55 ABG pCO2 48.6 mm Hg 07/29/20 12:55 ABG pO2 131.0 mm Hg (80.0-90.0) H 07/29/20 12:55 ABG O2 Saturation 98.3 % (95.0-99.0) 07/29/20 12:55 PT/INR, D-dimer PT 13.9 Sec. (12.2-14.9) 08/06/20 04:56 INR 1.08 (0.87-1.13) 08/06/20 04:56 Abnormal lab findings: Abnormal Labs 07/24/20 07/24/20 07/24/20 08:40 08:40 08:40 WBC 11.3 H RBC 3.40 L Hgb 11.0 L Hct 33.0 L MCV 97 H RDW 15.6 H Plt Count Lymph % (Auto) Pike % (Auto) Lymph # (Auto) Seg Neutrophils % Seg Neuts % (Manual) Lymphocytes % (Manual) Seg Neutrophils # Seg Neutrophils # Man Monocytes # (Manual) APTT 45.0 H ABG pH ABG pO2 ABG Hemoglobin Sodium Potassium Chloride Carbon Dioxide BUN 38 H Creatinine 4.7 H Glucose POC Glucose Calcium AST Total Protein Albumin Prealbumin Vitamin B12 Crossmatch 07/24/20 07/24/20 07/24/20 15:41 15:57 20:52 WBC RBC Hgb Hct MCV RDW Plt Count Lymph % (Auto) Pike % (Auto) Lymph # (Auto) Seg Neutrophils % Seg Neuts % (Manual) Lymphocytes % (Manual) Seg Neutrophils # Seg Neutrophils # Man Monocytes # (Manual) APTT ABG pH ABG pO2 ABG Hemoglobin Sodium Potassium Chloride Carbon Dioxide BUN Creatinine Glucose POC Glucose 18 L 128 H 108 H Calcium AST Total Protein Albumin Prealbumin Vitamin B12 Crossmatch 07/25/20 07/25/20 07/25/20 05:42 05:42 07:43 WBC 11.4 H RBC 3.02 L Hgb 9.5 L Hct 29.8 L MCV 99 H RDW 15.9 H Plt Count Lymph % (Auto) 9.0 L Pike % (Auto) Lymph # (Auto) 1.0 L Seg Neutrophils % 82.6 H Seg Neuts % (Manual) Lymphocytes % (Manual) Seg Neutrophils # 9.4 H Seg Neutrophils # Man Monocytes # (Manual) APTT ABG pH ABG pO2 ABG Hemoglobin Sodium Potassium 5.1 H Chloride Carbon Dioxide BUN 53 H Creatinine 6.1 H Glucose 122 H POC Glucose 108 H Calcium AST Total Protein Albumin Prealbumin Vitamin B12 Crossmatch 07/25/20 07/25/20 07/26/20 11:18 21:17 11:35 WBC RBC Hgb Hct MCV RDW Plt Count Lymph % (Auto) [place]ike % (Auto) Lymph # (Auto) Seg Neutrophils % Seg Neuts % (Manual) Lymphocytes % (Manual) Seg Neutrophils # Seg Neutrophils # Man Monocytes # (Manual) APTT ABG pH ABG pO2 ABG Hemoglobin Sodium Potassium Chloride Carbon Dioxide BUN Creatinine Glucose POC Glucose 133 H 68 L 45 L Calcium AST Total Protein Albumin Prealbumin Vitamin B12 Crossmatch 07/26/20 07/26/20 07/26/20 12:27 12:51 16:27 WBC RBC Hgb Hct MCV RDW Plt Count Lymph % (Auto) [place] % (Auto) Lymph # (Auto) Seg Neutrophils % Seg Neuts % (Manual) Lymphocytes % (Manual) Seg Neutrophils # Seg Neutrophils # Man Monocytes # (Manual) APTT ABG pH ABG pO2 ABG Hemoglobin Sodium Potassium Chloride Carbon Dioxide BUN Creatinine Glucose POC Glucose 65 L 124 H 52 L Calcium AST Total Protein Albumin Prealbumin Vitamin B12 Crossmatch 07/26/20 07/27/20 07/27/20 18:13 05:21 05:21 WBC 11.5 H RBC 3.16 L Hgb 10.0 L Hct 29.8 L MCV 95 H RDW Plt Count Lymph % (Auto) [place]ike % (Auto) Lymph # (Auto) Seg Neutrophils % Seg Neuts % (Manual) Lymphocytes % (Manual) Seg Neutrophils # Seg Neutrophils # Man Monocytes # (Manual) APTT ABG pH ABG pO2 ABG Hemoglobin Sodium Potassium Chloride Carbon Dioxide BUN 45 H Creatinine 5.6 H Glucose POC Glucose 147 H Calcium AST Total Protein Albumin Prealbumin Vitamin B12 Crossmatch 07/27/20 07/27/20 07/27/20 07:37 09:10 16:25 WBC RBC Hgb Hct MCV RDW Plt Count Lymph % (Auto) [place]ike % (Auto) Lymph # (Auto) Seg Neutrophils % Seg Neuts % (Manual) Lymphocytes % (Manual) Seg Neutrophils # Seg Neutrophils # Man Monocytes # (Manual) APTT ABG pH ABG pO2 ABG Hemoglobin Sodium Potassium Chloride Carbon Dioxide BUN Creatinine Glucose POC Glucose 41 L 129 H Calcium AST Total Protein Albumin Prealbumin 0.116 L Vitamin B12 Crossmatch 07/27/20 07/27/20 07/28/20 16:25 21:16 11:41 WBC RBC Hgb Hct MCV RDW Plt Count Lymph % (Auto) [place]ike % (Auto) Lymph # (Auto) Seg Neutrophils % Seg Neuts % (Manual) Lymphocytes % (Manual) Seg Neutrophils # Seg Neutrophils # Man Monocytes # (Manual) APTT ABG pH ABG pO2 ABG Hemoglobin Sodium Potassium Chloride Carbon Dioxide BUN Creatinine Glucose POC Glucose 123 H 117 H Calcium AST Total Protein Albumin Prealbumin Vitamin B12 980.0 H Crossmatch 07/28/20 07/28/20 07/29/20 15:47 22:07 07:42 WBC RBC Hgb Hct MCV RDW Plt Count Lymph % (Auto) Pike % (Auto) Lymph # (Auto) Seg Neutrophils % Seg Neuts % (Manual) Lymphocytes % (Manual) Seg Neutrophils # Seg Neutrophils # Man Monocytes # (Manual) APTT ABG pH ABG pO2 ABG Hemoglobin Sodium Potassium Chloride Carbon Dioxide BUN Creatinine Glucose POC Glucose 148 H 119 H 106 H Calcium AST Total Protein Albumin Prealbumin Vitamin B12 Crossmatch 07/29/20 07/29/20 07/29/20 11:08 12:55 22:46 WBC RBC Hgb Hct MCV RDW Plt Count Lymph % (Auto) [place] % (Auto) Lymph # (Auto) Seg Neutrophils % Seg Neuts % (Manual) Lymphocytes % (Manual) Seg Neutrophils # Seg Neutrophils # Man Monocytes # (Manual) APTT ABG pH 7.316 L ABG pO2 131.0 H ABG Hemoglobin 9.4 L Sodium Potassium Chloride Carbon Dioxide BUN Creatinine Glucose POC Glucose 117 H 125 H Calcium AST Total Protein Albumin Prealbumin Vitamin B12 Crossmatch 07/30/20 07/30/20 07/30/20 04:17 04:17 07:50 WBC RBC 2.95 L Hgb 9.4 L Hct 28.4 L MCV 96 H RDW Plt Count Lymph % (Auto) [place]ike % (Auto) Lymph # (Auto) Seg Neutrophils % Seg Neuts % (Manual) Lymphocytes % (Manual) Seg Neutrophils # Seg Neutrophils # Man Monocytes # (Manual) APTT ABG pH ABG pO2 ABG Hemoglobin Sodium Potassium Chloride Carbon Dioxide BUN 46 H Creatinine 5.8 H Glucose POC Glucose 47 L Calcium 8.3 L AST Total Protein Albumin Prealbumin Vitamin B12 Crossmatch 07/30/20 07/30/20 07/31/20 16:33 21:25 07:26 WBC RBC Hgb Hct MCV RDW Plt Count Lymph % (Auto) Pike % (Auto) Lymph # (Auto) Seg Neutrophils % Seg Neuts % (Manual) Lymphocytes % (Manual) Seg Neutrophils # Seg Neutrophils # Man Monocytes # (Manual) APTT ABG pH ABG pO2 ABG Hemoglobin Sodium Potassium 5.4 H Chloride Carbon Dioxide BUN 50 H Creatinine 5.8 H Glucose 112 H POC Glucose 123 H 59 L Calcium 8.1 L AST Total Protein Albumin Prealbumin Vitamin B12 Crossmatch 07/31/20 07/31/20 07/31/20 09:03 10:47 14:09 WBC RBC 2.73 L Hgb 8.7 L Hct 26.6 L MCV 97 H RDW 15.3 H Plt Count Lymph % (Auto) Pike % (Auto) 8.7 H Lymph # (Auto) Seg Neutrophils % 74.7 H Seg Neuts % (Manual) Lymphocytes % (Manual) Seg Neutrophils # Seg Neutrophils # Man Monocytes # (Manual) APTT ABG pH ABG pO2 ABG Hemoglobin Sodium Potassium Chloride Carbon Dioxide BUN 29 H Creatinine 4.3 H Glucose 106 H POC Glucose 48 L Calcium 8.0 L AST Total Protein Albumin Prealbumin Vitamin B12 Crossmatch 07/31/20 07/31/20 08/01/20 16:01 20:04 10:42 WBC RBC Hgb Hct MCV RDW Plt Count Lymph % (Auto) [place]ike % (Auto) Lymph # (Auto) Seg Neutrophils % Seg Neuts % (Manual) Lymphocytes % (Manual) Seg Neutrophils # Seg Neutrophils # Man Monocytes # (Manual) APTT ABG pH ABG pO2 ABG Hemoglobin Sodium Potassium Chloride Carbon Dioxide BUN Creatinine Glucose POC Glucose 69 L 111 H 109 H Calcium AST Total Protein Albumin Prealbumin Vitamin B12 Crossmatch 08/01/20 08/02/20 08/03/20 13:49 08:45 07:55 WBC RBC Hgb Hct MCV RDW Plt Count Lymph % (Auto) [place] % (Auto) Lymph # (Auto) Seg Neutrophils % Seg Neuts % (Manual) Lymphocytes % (Manual) Seg Neutrophils # Seg Neutrophils # Man Monocytes # (Manual) APTT ABG pH ABG pO2 ABG Hemoglobin Sodium 134 L Potassium Chloride Carbon Dioxide BUN 38 H Creatinine 5.7 H Glucose 105 H POC Glucose 69 L 38 L Calcium 8.2 L AST Total Protein Albumin Prealbumin Vitamin B12 Crossmatch 08/03/20 08/03/20 08/03/20 08:03 11:32 12:30 WBC RBC Hgb Hct MCV RDW Plt Count Lymph % (Auto) [place] % (Auto) Lymph # (Auto) Seg Neutrophils % Seg Neuts % (Manual) Lymphocytes % (Manual) Seg Neutrophils # Seg Neutrophils # Man Monocytes # (Manual) APTT ABG pH ABG pO2 ABG Hemoglobin Sodium Potassium Chloride Carbon Dioxide BUN Creatinine Glucose POC Glucose 223 H 136 H 119 H Calcium AST Total Protein Albumin Prealbumin Vitamin B12 Crossmatch 08/03/20 08/04/20 08/04/20 21:38 07:32 08:25 WBC RBC Hgb Hct MCV RDW Plt Count Lymph % (Auto) [place]ike % (Auto) Lymph # (Auto) Seg Neutrophils % Seg Neuts % (Manual) Lymphocytes % (Manual) Seg Neutrophils # Seg Neutrophils # Man Monocytes # (Manual) APTT ABG pH ABG pO2 ABG Hemoglobin Sodium Potassium Chloride Carbon Dioxide BUN Creatinine Glucose POC Glucose 133 H 54 L 126 H Calcium AST Total Protein Albumin Prealbumin Vitamin B12 Crossmatch 08/04/20 08/04/20 08/04/20 12:06 12:06 15:51 WBC RBC 2.63 L Hgb 8.4 L Hct 25.4 L MCV 97 H RDW Plt Count Lymph % (Auto) 7.6 L Pike % (Auto) Lymph # (Auto) 0.6 L Seg Neutrophils % 81.8 H Seg Neuts % (Manual) Lymphocytes % (Manual) Seg Neutrophils # Seg Neutrophils # Man Monocytes # (Manual) APTT ABG pH ABG pO2 ABG Hemoglobin Sodium 132 L Potassium Chloride 96.8 L Carbon Dioxide BUN Creatinine 4.0 H Glucose 131 H POC Glucose 126 H Calcium 7.8 L AST Total Protein 5.3 L Albumin 2.2 L Prealbumin Vitamin B12 Crossmatch 08/05/20 08/05/20 08/05/20 09:34 09:34 21:22 WBC RBC 2.54 L Hgb 8.0 L Hct 24.3 L MCV 95 H RDW 15.3 H Plt Count Lymph % (Auto) 11.3 L Pike % (Auto) 7.7 H Lymph # (Auto) 1.0 L Seg Neutrophils % 77.6 H Seg Neuts % (Manual) Lymphocytes % (Manual) Seg Neutrophils # Seg Neutrophils # Man Monocytes # (Manual) APTT ABG pH ABG pO2 ABG Hemoglobin Sodium 132 L Potassium Chloride 95.2 L Carbon Dioxide BUN 24 H Creatinine 5.0 H Glucose 106 H POC Glucose 50 L Calcium 8.0 L AST Total Protein 5.0 L Albumin 2.1 L Prealbumin Vitamin B12 Crossmatch 08/06/20 08/06/20 08/07/20 04:56 04:56 04:56 WBC 23.6 H RBC 2.55 L 1.82 L Hgb 8.1 L 5.8 L* Hct 24.5 L 17.5 L* D MCV 96 H 97 H RDW 15.4 H Plt Count 129 L Lymph % (Auto) 10.9 L Pike % (Auto) 7.9 H Lymph # (Auto) 1.1 L Seg Neutrophils % 79.0 H Seg Neuts % (Manual) 89.0 H Lymphocytes % (Manual) 6.0 L Seg Neutrophils # 8.2 H Seg Neutrophils # Man 21.0 H Monocytes # (Manual) 1.2 H APTT ABG pH ABG pO2 ABG Hemoglobin Sodium 127 L Potassium Chloride 91.9 L Carbon Dioxide BUN 28 H Creatinine 5.8 H Glucose POC Glucose Calcium 7.9 L AST Total Protein 5.0 L Albumin 1.9 L Prealbumin Vitamin B12 Crossmatch 08/07/20 08/07/20 08/07/20 04:56 08:56 09:05 WBC RBC Hgb 6.6 L Hct 20.2 L MCV RDW Plt Count Lymph % (Auto) [place] % (Auto) Lymph # (Auto) Seg Neutrophils % Seg Neuts % (Manual) Lymphocytes % (Manual) Seg Neutrophils # Seg Neutrophils # Man Monocytes # (Manual) APTT ABG pH ABG pO2 ABG Hemoglobin Sodium 133 L Potassium Chloride 96.2 L Carbon Dioxide 31 H BUN Creatinine 3.7 H Glucose 132 H POC Glucose Calcium 7.8 L AST 43 H Total Protein 4.9 L Albumin 2.0 L Prealbumin Vitamin B12 Crossmatch See Detail 08/07/20 08/08/20 08/08/20 23:55 01:08 05:04 WBC 12.4 H RBC 3.02 L Hgb 9.4 L Hct 27.5 L D MCV RDW 17.2 H Plt Count Lymph % (Auto) 7.1 L [place]ike % (Auto) Lymph # (Auto) 0.9 L Seg Neutrophils % 85.1 H Seg Neuts % (Manual) Lymphocytes % (Manual) Seg Neutrophils # 10.5 H Seg Neutrophils # Man Monocytes # (Manual) APTT ABG pH ABG pO2 ABG Hemoglobin Sodium Potassium Chloride Carbon Dioxide BUN Creatinine Glucose POC Glucose 68 L 68 L Calcium AST Total Protein Albumin Prealbumin Vitamin B12 Crossmatch 08/08/20 08/08/20 08/08/20 05:04 05:19 12:01 WBC RBC Hgb Hct MCV RDW Plt Count Lymph % (Auto) [place] % (Auto) Lymph # (Auto) Seg Neutrophils % Seg Neuts % (Manual) Lymphocytes % (Manual) Seg Neutrophils # Seg Neutrophils # Man Monocytes # (Manual) APTT ABG pH ABG pO2 ABG Hemoglobin Sodium 133 L Potassium Chloride 96.6 L Carbon Dioxide BUN 24 H Creatinine 4.7 H Glucose POC Glucose 68 L 122 H Calcium 8.3 L AST 48 H Total Protein 5.2 L Albumin 2.2 L Prealbumin Vitamin B12 Crossmatch 08/08/20 08/09/20 08/09/20 17:12 13:27 14:54 WBC RBC 2.62 L Hgb 8.2 L Hct 24.2 L MCV RDW 16.7 H Plt Count Lymph % (Auto) [place] % (Auto) Lymph # (Auto) Seg Neutrophils % Seg Neuts % (Manual) Lymphocytes % (Manual) Seg Neutrophils # Seg Neutrophils # Man Monocytes # (Manual) APTT ABG pH ABG pO2 ABG Hemoglobin Sodium Potassium Chloride Carbon Dioxide BUN Creatinine 3.8 H Glucose 115 H POC Glucose 106 H Calcium 8.0 L AST Total Protein Albumin Prealbumin Vitamin B12 Crossmatch 08/09/20 08/10/20 08/10/20 15:19 00:03 05:23 WBC RBC Hgb Hct MCV RDW Plt Count Lymph % (Auto) [place] % (Auto) Lymph # (Auto) Seg Neutrophils % Seg Neuts % (Manual) Lymphocytes % (Manual) Seg Neutrophils # Seg Neutrophils # Man Monocytes # (Manual) APTT ABG pH ABG pO2 ABG Hemoglobin Sodium Potassium Chloride Carbon Dioxide BUN Creatinine Glucose POC Glucose 118 H 46 L 45 L Calcium AST Total Protein Albumin Prealbumin Vitamin B12 Crossmatch
--- NOTE | 2020-08-10 10:45 | Vascular Lab Report ---
VL ARTERIAL DUPLEX LOWER EXTREMITY RIGHT HISTORY: Pseudoaneurysm after thrombin injection TECHNIQUE: Grayscale ultrasound with color and spectral Doppler imaging. 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 No organized internal thrombus is detected. The neck of th e pseudoaneurysm measures 0.3 cm, minimally decreased from prior study (previously measured 0.4 cm). 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 Dr. Malhotra was informed of these findings at 1018 hours by the technologist. Signer Name: Edvin Jasso MD Signed: 08/10/2020 10:41 AM Workstation Name: [id number]
--- NOTE | 2020-08-10 11:01 | XRay Report ---
CHEST 1 VIEW 08/10/2020 10:42 AM INDICATION / CLINICAL INFORMATION: Worsening hypoxemia. COMPARISON: One view of the chest dated 08/07/2020. FINDINGS: SUPPORT DEVICES: Unchanged. HEART / MEDIASTINUM: Stable. LUNGS / PLEURA: The previously seen right pleural effusion has enlarged with associated atelectasis. Left basilar pleural-parenchymal opacities have increased as well. Probable bilateral interstitial ed marie is also noted. No pneumothorax. ADDITIONAL FINDINGS: No significant additional findings. IMPRESSION: Interval enlargement of a right pleural effusion with additional findings as above. Signer Name: Jose Raul Lara MD Signed: 08/10/2020 10:56 AM Workstation Name: [id number]
[2020-08-10] MEDS: LOSARTAN 50 MG TAB PO SCH (11:26)
[2020-08-10] MEDS: carvediloL 6.25 MG TAB PO SCH ×2 (11:26→22:37)
[2020-08-10] MEDS: FERROUS SULFATE 325 MG TAB PO SCH ×2 (11:26→22:34)
[2020-08-10] MEDS: OMEGA-3 FATTY ACIDS/FISH OIL 1 GRAM CAP PO SCH (11:26)
[2020-08-10] MEDS: FOLIC ACID/VIT B COMP W-C 1 MG (RENAL CAPS) PO SCH (11:26)
[2020-08-10] MEDS: DOXAZOSIN 4 MG TAB PO SCH (11:26)
--- NOTE | 2020-08-10 13:40 | Progress Note ---
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 Placed pressure dressing over the area, s/p Ultrasound-guided vessel identification today and no thrombin injection required Continue pressure compression, plan to remove the compression tomorrow 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 Verbal prompting, verbal redirection Continue aspirin and Plavix --Gout Continue allopurinol --BPH Continue doxazosin --Moderate protein calorie malnutrition Nutrition referral Diet supplements --Hypoglycemia Due to poor intake Continue diet D10W #ESRD Hemodialysis as scheduled Nephrology following --Acute hypoxia with respiratory failure-continue supplemental O2 as needed --Stage 1 pressure ulcer sacrum-wound care -- Scrotal wound with drainage Need to rule out scrotal abscess US scrotum ordered ID consulted Urology consulted Antibiotics - vancomycin, ceftriaxone --Advance care planning May need placement. Sons number is Timmy Beckman --DVT prophylaxis SCD to bilateral lower extremities while in bed, prophylactic anticoagulation. Brief history: 80 YO Male with ESRD on HD (M, W, F), HTN, DM, Vascular Dementia, Cerebral Atherosclerosis presents to ED with confusion. As per the patient's the pa tient has experienced increased weakness and confusion over the past 1 month with increased bedbound status. In the ER, patient found to have end-stage renal disease, left foot cellulitis complicated by systemic inflammatory response syndrome, as well as peripheral vascular disease. Patient admitted to medical floor and initiated on IV antibiotic therapy. Nephrology and vascular team consulted in ED. CT: Head: Negative for acute pathology. Daily clinical course: 07/25: Discussed with the IR, patient with new onset Altered mental status from the last time they saw the patient. Will begin work-up for possible underlying sepsis etiology or source unknown at this time. Will obtain ID consulted and Neurology. Continue abx, attempted to reach family. Concern for stroke is low but considering hx of vasculopathy will obtain Neurology Will also obtain wound consultation. 07/26: Some improvement noted with initiation of antibiotics. We will continue current management patient continues on hemodialysis. Will await further vascular improvement as patient is beginning to show some improvement. Discussed with case management. Apparently the person that came with the patient is not the patient's but a caregiver H&P portion of this note has been corrected. Continue wound care and every 2 hours turns. 07/27: Continue current management plan. Vascular to re-evaluate. Continue abx. MRI with no acute pathology. Agree with the D5 as patient still has some intermittent confusion. Continue to monitor. Speech evaluation for swallow management. 07/28: Patient clinically stable, continue supportive care, abx, awaiting full vascular input. cONTINUE D5 for now. 07/29: We will give patient dose of Lasix, get a chest x-ray. Discussed with nursing staff could be that the patient was appear hypoxic due to cold extremities. Will obtain an ABG. We will also obtain a pulmonary consult for clearance for anticipated vascular procedure in a.m. 07/30: Noted hypoglycemia this morning we will give D50 and amp. Patient is for procedure today. Discussed with vascular. Per discussion with nursing saturation has improved. Pulmonary input is noted. He was admitted for digital gangrene on multiple digits both fingers and toes. Was also noted to be septic requiring treatment which has led to improvement in his mental status. 07/31. Now status post angiography and angioplasty of distal femoral arteries. Now on antiplatelets. He has been having episodes of hypoglycemia. Started him on D10 water. Continue to monitor closely for now. CT head ordered to rule out any CVA though not likely. Vascular surgery following. 08/01. Patient remains lethargic. Discontinued pain medications and gabapentin. On IV antibiotics. Started on D10 water yesterday for hypoglycemia. If lethargy does not improve, will place an NG tube. CT head negative for any stroke. 08/02. More responsive today. Still gets agitated and pulling on his IV lines so was placed on restraints. Needs to have a repeat swallow evaluation. Blood glucose is table. 08/03. Responsive today. Alert and oriented x2. Will get vascular to reevaluate. Needs to have revascularization of LE vessels as per vascular. Passed swallow evaluation yesterday and has been started on a diet. 08/04. Plan for vascularization of the extremities as per vascular. 08/05. No complaints today. Plan for revascularization tomorrow. NPO after midnight 08/06. Plan for revascularization today. He will need placement but PT yet to see. 08/07: Status post revascularization yesterday. H&H dropped today to 5.6. Patient noted to form pseudoaneurysm at the revascularization area. Patient also noted to have low BP -ordered for packed RBC and transferred to ICU for close monitoring. Continue D10 W 08/08: Status post hemodialysis today, H&H stable, vitals stable. Transfer out to telemetry. Patient has been seen by vascular surgeon, plan for thrombin injection tomorrow unless pseudoaneurysm thrombosis overnight with compression. N.p.o. after midnight 08/09: s/p Ultrasound-guided vessel identification today and no thrombin injection required. Continue pressure compression, plan to remove the compression tomorrow. Reconsult PT, continue IV antibiotics. Will consult urology for possible scrotal abscess 08/10: Urology not available, consult GS for scrotal abscess. Becoming hypoglycemic - increase the rate of D10W to 75 mill per hour. Order for a.m. labs Subjective Date of service: 08/10/20 Principal diagnosis: Peripheral vascular disease with gangrene Interval history: Patient seen and examined BP stable, patient noted to have low blood sugar in the morning Getting wound care at the bedside Discussed with RN Objective - Exam Narrative Exam: GENERAL: Alert and awake HEAD: No signs of head trauma. EYES: Pupils are equal. Extraocular motions intact. MOUTH: Oropharynx is normal. NECK: No adenopathy, no JVD. CHEST: Chest with diminished breath sounds bilaterally. No wheezes, rales, or rhonchi. CARDIAC: normal S1 and S2, without murmurs, gallops, or rubs. ABDOMEN: Soft, non tender and non distended. No rebound or guarding, and no masses palpated. Bowel Sounds normal. MUSCULOSKELETAL: LLE: Gangrenous looking big toe, proximal area of the leg feels warm to touch. Gangrenous scrotum with oozing pus NEUROLOGIC EXAM: Generalized weakness SKIN: No obvious lesions - Constitutional Vitals: Vital Signs - 12hr 08/10/20 08/10/20 08/10/20 03:30 03:31 05:33 Temperature 98.1 F Pulse Rate 63 63 Respiratory 18 Rate Respiratory Rate [Butt] Blood Pressure 144/40 144/40 O2 Sat by Pulse 83 L 95 Oximetry 08/10/20 08/10/20 08/10/20 07:16 07:26 09:26 Temperature 97.9 F Pulse Rate 68 Respiratory 18 18 Rate Respiratory Rate [Butt] Blood Pressure 147/41 O2 Sat by Pulse 96 93 91 Oximetry 08/10/20 08/10/20 08/10/20 09:43 11:10 12:16 Temperature Pulse Rate 68 56 L Respiratory Rate Respiratory 14 Rate [Butt] Blood Pressure 60/35 O2 Sat by Pulse 70 L Oximetry 08/10/20 12:18 Temperature 98.5 F Pulse Rate 60 Respiratory Rate Respiratory Rate [Butt] Blood Pressure 110/35 O2 Sat by Pulse 98 Oximetry - Labs CBC & Chem 7: 08/09/20 14:54 08/09/20 13:27 Labs: Abnormal lab results 08/09/20 08/09/20 08/09/20 Range/Units 13:27 14:54 15:19 RBC 2.62 L (3.65-5.03) M/mm3 Hgb 8.2 L (11.8-15.2) gm/dl Hct 24.2 L (35.5-45.6) % RDW 16.7 H (13.2-15.2) % Creatinine 3.8 H (0.8-1.3) mg/dL Glucose 115 H (75-100) mg/dL POC Glucose 118 H (70-105) mg/dL Calcium 8.0 L (8.4-10.2) mg/dL 08/10/20 08/10/20 08/10/20 Range/Units 00:03 05:23 11:34 RBC (3.65-5.03) M/mm3 Hgb (11.8-15.2) gm/dl Hct (35.5-45.6) % RDW (13.2-15.2) % Creatinine (0.8-1.3) mg/dL Glucose (75-100) mg/dL POC Glucose 46 L 45 L 50 L (70-105) mg/dL Calcium (8.4-10.2) mg/dL
--- NOTE | 2020-08-10 13:56 | Progress Note ---
Assessment and Plan Cultures: 07/24/2020 blood culture: No growth A/P: 80-year-old male with ESRD on HD, diabetes, hypertension, prior CVA, vascular dementia: #Left foot cellulitis with gangrenous changes involving 1st and 2nd toes: Vascular following. Underwent re-vasc on 07/30/2020. #Acute encephalopathy: Neurology on board. MRI brain with advanced volume loss, no acute findings. #ESRD on HD: Renally dose antibiotics. #Orchitis/abscess/possible pyocele: on empiric antibiotics, awaiting urology evaluation. #?Xiomara's: awaiting urology. Empiric treatment on board. Recs: -Continue empiric vancomycin, escalated ceftriaxone to Zosyn given possible Xiomara's. -Added high-dose clindamycin for 9 doses -Urology consult urgently required Donald Theodore MD [facility] ([facility]) O: [phone] F: [phone] Subjective Date of service: 08/10/20 Principal diagnosis: Peripheral vascular disease with gangrene Interval history: Afebrile, normal white count. Imaging personally reviewed: Chest x-ray: Right pleural effusion Scrotal ultrasound: Right-sided orchitis, abscess, possible pyocele Objective - Exam Narrative Exam: Constitutional: awake and alert Head, Ears, Nose: Normocephalic, atraumatic. External ears, nose normal Eyes: Conjunctivae/corneas clear. No icterus. No ptosis. Neck: Supple, no meningeal signs Cardiovascular: S1, S2 normal. Respiratory: Good air entry, clear to auscultation bilaterally GI: Soft, non-tender; bowel sounds normal. No peritoneal signs Musculoskeletal: Left great toe and second toe with dry gangrenous change. R groin pseudoaneurysm in dressing. Skin: Scabs on bilateral feet. Hem/Lymphatic: No palpable cervical or supraclavicular nodes. No lymphangitis Psych: no agitation Neurological: awake, answering basic questions. - Constitutional Vitals: Vital Signs Temp Pulse Resp BP Pulse Ox 98.5 F 60 14 110/35 98 08/10/20 12:18 08/10/20 12:18 08/10/20 09:43 08/10/20 12:18 08/10/20 12:18 Temperature -Last 24 Hours Temperature 98.5 F Temperature 97.9 F Temperature 98.1 F Temperature 98.8 F Temperature 99.7 F Temperature 98.6 F - Labs CBC & Chem 7: 08/09/20 14:54 08/09/20 13:27 Labs: Abnormal lab results 08/09/20 08/09/20 08/09/20 Range/Units 13:27 14:54 15:19 RBC 2.62 L (3.65-5.03) M/mm3 Hgb 8.2 L (11.8-15.2) gm/dl Hct 24.2 L (35.5-45.6) % RDW 16.7 H (13.2-15.2) % Creatinine 3.8 H (0.8-1.3) mg/dL Glucose 115 H (75-100) mg/dL POC Glucose 118 H (70-105) mg/dL Calcium 8.0 L (8.4-10.2) mg/dL 08/10/20 08/10/20 08/10/20 Range/Units 00:03 05:23 11:34 RBC (3.65-5.03) M/mm3 Hgb (11.8-15.2) gm/dl Hct (35.5-45.6) % RDW (13.2-15.2) % Creatinine (0.8-1.3) mg/dL Glucose (75-100) mg/dL POC Glucose 46 L 45 L 50 L (70-105) mg/dL Calcium (8.4-10.2) mg/dL
[2020-08-10] MEDS ORDERED: PIPERACILLIN/TAZOBACTAM 3.375 3.375 GM/50 ML BAG IV SCH (15:00)
[2020-08-10] MEDS: PIPERACILLIN/TAZOBACTAM 3.375 3.375 GM/50 ML BAG IV SCH (17:48)
[2020-08-10] MEDS: MONTELUKAST 10 MG TAB PO SCH (18:46)
--- NOTE | 2020-08-10 22:15 | Consultation ---
History of Present Illness Consult date: 08/10/20 Chief complaint: Hospitalist referal for scrotal abscess - History of present illness History of present illness: Pt is non-communicative. Referred by Hospitalist service for scrotal abscess. Seen in dialysis. Pt has DM. Past History Past Medical History: diabetes, ESRD, hypertension, PVD Past Surgical History: Other (Dialysis access) Social history: single, lives with family. denies: smoking, alcohol abuse, prescription drug abuse Family history: diabetes, hypertension Medications and Allergies Allergies Allergy/AdvReac Type Severity Reaction Status Date / Time No Known Allergies Allergy Verified 05/01/15 08:52 Home Medications Medication Instructions Recorded Confirmed Last Taken Type Calcium Acetate [Phoslo] 667 mg PO TID 07/24/20 07/24/20 Unknown History Fenofibrate 160 mg PO QDAY 07/24/20 07/24/20 Unknown History Gabapentin [Neurontin] 100 mg PO Q8HR 07/24/20 07/24/20 Unknown History HYDROcodone/ACETAMINOPHEN 1 each PO Q8HR PRN 07/24/20 07/24/20 Unknown History [Hydrocodone-Acetamin 5-300 mg] Losartan Potassium 100 mg PO QDAY 07/24/20 07/24/20 Unknown History Montelukast [Singulair] 10 mg PO QPM 07/24/20 07/24/20 Unknown History Sevelamer Carbonate [Renvela] 800 mg PO TIDWM 07/24/20 07/24/20 Unknown History Simvastatin 40 mg PO QDAY 07/24/20 07/24/20 Unknown History allopurinoL [Zyloprim] 100 mg PO QDAY 07/24/20 07/24/20 Unknown History traZODone [Desyrel] 50 mg PO QHS 07/24/20 07/24/20 Unknown History traZODone [Desyrel] 50 mg PO QHS 07/24/20 07/24/20 Unknown History Active Meds: Active Medications Acetaminophen (Acetaminophen 325 Mg Tab) 650 mg PO Q4H PRN PRN Reason: Pain MILD(1-3)/Fever >100.5/ANDRADE Last Admin: 08/09/20 22:05 Dose: 650 mg Documented by: Acetaminophen (Acetaminophen 650 Mg Rect Supp) 650 mg WI Q4H PRN PRN Reason: Fever >101 Last Admin: 07/31/20 16:11 Dose: 650 mg Documented by: Albuterol (Albuterol 2.5 Mg/3 Ml Nebu) 2.5 mg IH Q4HRT PRN PRN Reason: Shortness Of Breath Last Admin: 08/09/20 18:28 Dose: 2.5 mg Documented by: Allopurinol (Allopurinol 100 Mg Tab) 100 mg PO QDAY [facility] Last Admin: 08/10/20 09:37 Dose: 100 mg Documented by: Aspirin (Aspirin Ec 81 Mg Tab) 81 mg PO QDAY [facility] Last Admin: 08/10/20 09:37 Dose: 81 mg Documented by: Calcium Acetate (Calcium Acetate 667 Mg Cap) 667 mg PO TIDWM [facility] Last Admin: 08/10/20 16:35 Dose: Not Given Documented by: Carvedilol (Carvedilol 6.25 Mg Tab) 6.25 mg PO BID [facility] Last Admin: 08/10/20 11:26 Dose: 6.25 mg Documented by: Clopidogrel Bisulfate (Clopidogrel 75 Mg Tab) 75 mg PO QDAY [facility] Last Admin: 08/10/20 09:37 Dose: 75 mg Documented by: Dextrose (Dextrose 50% In Water (25gm) 50 Ml Syringe) 50 ml IV Q30MIN PRN; Protocol PRN Reason: Hypoglycemia Last Admin: 08/10/20 05:33 Dose: 50 ml Documented by: Doxazosin Mesylate (Doxazosin 4 Mg Tab) 4 mg PO DAILY [facility] Last Admin: 08/10/20 11:26 Dose: 4 mg Documented by: Fenofibrate (Fenofibrate 145 Mg Tab) 145 mg PO DAILY [facility] Last Admin: 08/10/20 09:37 Dose: 145 mg Documented by: Ferrous Sulfate (Ferrous Sulfate 325 Mg Tab) 325 mg PO BID [facility] Last Admin: 08/10/20 11:26 Dose: 325 mg Documented by: Fish Oil ([place]-3 Fatty Acids/Fish Oil 1 Gram Cap) 1,000 mg PO DAILY [facility] Last Admin: 08/10/20 11:26 Dose: Not Given Documented by: Hydralazine HCl (Hydralazine 25 Mg Tab) 50 mg PO Q8HR [facility] Last Admin: 08/10/20 13:27 Dose: Not Given Documented by: Hydralazine HCl (Hydralazine 20 Mg/1 Ml Inj) 10 mg IV Q6H PRN PRN Reason: Blood Pressure Last Admin: 08/02/20 08:46 Dose: 10 mg Documented by: Dextrose (D10w) 1,000 mls @ 75 mls/hr IV DIRECT [facility] Last Infusion: 08/10/20 11:56 Dose: Infused Documented by: Clindamycin HCl (Cleocin 900 Mg/50 Ml) 900 mg in 50 mls @ 100 mls/hr IV Q8H [facility]; Protocol Stop: 08/12/20 09:29 Last Admin: 08/10/20 16:32 Dose: 100 mls/hr Documented by: Piperacillin Sod/Tazobactam Sod (Zosyn/Ns 3.375gm/50ml) 3.375 gm in 50 mls @ 100 mls/hr IV Q12H [facility]; Protocol Last Admin: 08/10/20 17:48 Dose: 100 mls/hr Documented by: Lidocaine HCl (Butt Paste 50 Applic/100 Gm Jar) 1 applic TP BID [facility] Last Admin: 08/10/20 09:00 Dose: Not Given Documented by: Losartan Potassium (Losartan 50 Mg Tab) 100 mg PO QDAY [facility] Last Admin: 08/10/20 11:26 Dose: 100 mg Documented by: Montelukast Sodium (Montelukast 10 Mg Tab) 10 mg PO QPM [facility] Last Admin: 08/10/20 18:46 Dose: 10 mg Documented by: Multivit/Ca Carb/B Cmplx/FA/Prenat (Folic Acid/Vit B Comp W-C 1 Mg (Renal Caps)) 1 cap PO QDAY [facility] Last Admin: 08/10/20 11:26 Dose: 1 cap Documented by: Multivitamins/Minerals (Multivitamins,Ther W-Minerals Tab) 1 each PO QDAY [facility] Last Admin: 08/10/20 09:37 Dose: 1 each Documented by: Ondansetron HCl (Ondansetron 4 Mg/2 Ml Inj) 4 mg IV Q8H PRN PRN Reason: Nausea And Vomiting Pravastatin Sodium (Pravastatin 80 Mg Tab) 80 mg PO QHS [facility] Last Admin: 08/09/20 22:06 Dose: 80 mg Documented by: Sevelamer Carbonate (Sevelamer Carbonate 800 Mg Tab) 800 mg PO TIDWM [facility] Last Admin: 08/10/20 16:35 Dose: Not Given Documented by: Sodium Chloride (Sodium Chloride 0.9% 10 Ml Flush Syringe) 10 ml IV BID [facility] Last Admin: 08/10/20 11:10 Dose: Not Given Documented by: Sodium Chloride (Sodium Chloride 0.9% 10 Ml Flush Syringe) 10 ml IV PRN PRN PRN Reason: LINE FLUSH Last Admin: 07/24/20 12:39 Dose: 10 ml Documented by: Review of Systems ROS unobtainable: due to mental status Exam Vital Signs Resp 14 07/24/20 08:16 - General physical appearance Positive: well developed, well nourished, no distress - Eyes Positive: PERRL, normal occular movement - ENT Positive: normal pinna, normal nares, normal mucosa, no hearing loss, no congestion - Neck Positive: no masses, no bruits, trachea midline, no venous distension - Respiratory Positive: normal expansion, normal respiratory effort, clear to auscultation - Cardiovascular Rhythm: regular Heart Sounds: Present: S1 & S2. Absent: rub, click - Extremities Extremities: no ischemia, pulses symmetrical, No edema - Breasts Breasts: normal, no mass, no skin changes - Abdomen Abdomen: Present: soft, bowel sounds normal. Absent: tender, distended Hernia: none - Genitourinary Male Genitourinary: normal Female Genitourinary: normal - Integumentary no growths, no abnormal pigmentation, other (Scrotal exam reveals a severe case of cutaneous candidiasis.) - Neurologic Neurologic: alert and oriented to time, place and person, motor strength and sensation are grossly intact - Musculoskeletal normal gait, normal posture - Psychiatric Psychiatric: appropriate mood/affect, intact judgment & insight Results - Labs 08/09/20 14:54 08/09/20 13:27 Abnormal lab results 08/10/20 08/10/20 08/10/20 Range/Units 00:03 05:23 11:34 POC Glucose 46 L 45 L 50 L (70-105) mg/dL Assessment and Plan - Patient Problems (1) Candidiasis of scrotum Current Visit: Yes Status: Acute Plan to address problem: 1) Keep scrotum as dry as possible 2) Topical antifungal of choice 3) Strict control of DM
[2020-08-10] MEDS: PRAVASTATIN 80 MG TAB PO SCH (22:34)
[2020-08-11] MEDS: BUTT PASTE 50 APPLIC/100 GM JAR TP SCH ×3 (00:45→21:17)
[2020-08-11] MEDS: DEXTROSE 10% IN WATER 1,000 ML IV SCH ×2 (00:46→08:21)
[2020-08-11] MEDS: hydrALAZINE 25 MG TAB PO SCH ×3 (05:01→21:17)
[2020-08-11 06:24] LABS: Basophils # (Auto) 0.1 K/mm3 (0.0-0.1); Basophils % (Auto) 0.8 % (0.0-1.8); Eosinophils # (Auto) 0.1 K/mm3 (0.0-0.4); Eosinophils % (Auto) 1.3 % (0.0-4.3); Hematocrit 25.4 % (35.5-45.6); Hemoglobin 8.6 gm/dl (11.8-15.2); Lymphocytes # (Auto) 0.6 K/mm3 (1.2-5.4); Lymphocytes % (Auto) 5.9 % (13.4-35.0); Mean Corpuscular HGB Conc 34 % (32-34); Mean Corpuscular Volume 93 fl (84-94); Monocytes # (Auto) 0.7 K/mm3 (0.0-0.8); Monocytes % (Auto) 6.4 % (0.0-7.3); Red Blood Count 2.74 M/mm3 (3.65-5.03); Red Cell Distribution Width 16.6 % (13.2-15.2)
[2020-08-11 06:32] LABS: Platelet Count 170 K/mm3 (140-440)
[2020-08-11 06:37] LABS: Calcium 7.8 mg/dL (8.4-10.2)
[2020-08-11] MEDS: PIPERACILLIN/TAZOBACTAM 3.375 3.375 GM/50 ML BAG IV SCH ×2 (07:00→16:10)
[2020-08-11] MEDS: CALCIUM ACETATE 667 MG CAP PO SCH ×3 (08:57→16:36)
[2020-08-11] MEDS: SEVELAMER CARBONATE 800 MG TAB PO SCH ×3 (08:57→16:36)
--- NOTE | 2020-08-11 08:58 | Progress Note ---
Assessment and Plan - Patient Problems (1) ESRD on hemodialysis Current Visit: Yes Status: Acute (2) Candidiasis of scrotum Current Visit: Yes Status: Acute (3) Cellulitis Current Visit: Yes Status: Acute Qualifiers: Site of cellulitis of extremity: lower extremity Laterality: left (4) Cerebral atherosclerosis Current Visit: Yes Status: Acute (5) Gangrene Current Visit: Yes Status: Acute (6) Vascular dementia Current Visit: Yes Status: Acute Qualifiers: Dementia behavioral disturbance: without behavioral disturbance Qualified Code(s): F01.50 - Vascular dementia without behavioral disturbance (7) Diabetes Current Visit: No Status: Acute (8) End stage renal disease Current Visit: No Status: Acute (9) Pleural effusion Current Visit: Yes Status: Acute Subjective Principal diagnosis: Peripheral vascular disease with gangrene Interval history: no change Objective Vital Signs - 12hr 08/10/20 08/10/20 08/10/20 21:00 21:15 21:40 Temperature 98.0 F Pulse Rate 67 70 70 Respiratory 18 Rate Respiratory Rate [Butt] Blood Pressure 149/46 121/65 120/66 O2 Sat by Pulse Oximetry 08/10/20 08/10/20 08/10/20 22:00 22:35 22:37 Temperature Pulse Rate 62 70 70 Respiratory 18 Rate Respiratory 14 Rate [Butt] Blood Pressure 120/66 120/66 O2 Sat by Pulse 96 Oximetry 08/10/20 08/10/20 08/11/20 23:43 23:45 04:18 Temperature 98.8 F 98.7 F Pulse Rate 63 77 Respiratory 17 19 Rate Respiratory Rate [Butt] Blood Pressure 132/48 145/50 O2 Sat by Pulse 88 92 91 Oximetry 08/11/20 08/11/20 05:01 07:58 Temperature 97.4 F L Pulse Rate 77 75 Respiratory 22 Rate Respiratory Rate [Butt] Blood Pressure 145/50 139/52 O2 Sat by Pulse 98 Oximetry Constitutional: no acute distress, alert Eyes: non-icteric ENT: oropharynx moist Neck: supple Effort: normal Ascultation: Bilateral: diminished breath sounds Cardiovascular: regular rate and rhythm (no mrg) Gastrointestinal: normoactive bowel sounds, soft Integumentary: other (dry gangrene 1st toe on L) Extremities: no cyanosis, no edema Neurologic: normal mental status, non-focal exam, pupils equal and round Psychiatric: mood appropriate, affect normal CBC and BMP: 08/11/20 05:43 08/11/20 05:43 ABG, PT/INR, D-dimer: ABG ABG pH 7.316 pH Units (7.350-7.450) L 07/29/20 12:55 ABG pCO2 48.6 mm Hg 07/29/20 12:55 ABG pO2 131.0 mm Hg (80.0-90.0) H 07/29/20 12:55 ABG O2 Saturation 98.3 % (95.0-99.0) 07/29/20 12:55 PT/INR, D-dimer PT 13.9 Sec. (12.2-14.9) 08/06/20 04:56 INR 1.08 (0.87-1.13) 08/06/20 04:56 Abnormal lab findings: Abnormal Labs 07/24/20 07/24/20 07/24/20 08:40 08:40 08:40 WBC 11.3 H RBC 3.40 L Hgb 11.0 L Hct 33.0 L MCV 97 H RDW 15.6 H Plt Count Lymph % (Auto) [place] % (Auto) Lymph # (Auto) Seg Neutrophils % Seg Neuts % (Manual) Lymphocytes % (Manual) Seg Neutrophils # Seg Neutrophils # Man Monocytes # (Manual) APTT 45.0 H ABG pH ABG pO2 ABG Hemoglobin Sodium Potassium Chloride Carbon Dioxide BUN 38 H Creatinine 4.7 H Glucose POC Glucose Calcium AST Total Protein Albumin Prealbumin Vitamin B12 Crossmatch 07/24/20 07/24/20 07/24/20 15:41 15:57 20:52 WBC RBC Hgb Hct MCV RDW Plt Count Lymph % (Auto) [place] % (Auto) Lymph # (Auto) Seg Neutrophils % Seg Neuts % (Manual) Lymphocytes % (Manual) Seg Neutrophils # Seg Neutrophils # Man Monocytes # (Manual) APTT ABG pH ABG pO2 ABG Hemoglobin Sodium Potassium Chloride Carbon Dioxide BUN Creatinine Glucose POC Glucose 18 L 128 H 108 H Calcium AST Total Protein Albumin Prealbumin Vitamin B12 Crossmatch 07/25/20 07/25/20 07/25/20 05:42 05:42 07:43 WBC 11.4 H RBC 3.02 L Hgb 9.5 L Hct 29.8 L MCV 99 H RDW 15.9 H Plt Count Lymph % (Auto) 9.0 L [place] % (Auto) Lymph # (Auto) 1.0 L Seg Neutrophils % 82.6 H Seg Neuts % (Manual) Lymphocytes % (Manual) Seg Neutrophils # 9.4 H Seg Neutrophils # Man Monocytes # (Manual) APTT ABG pH ABG pO2 ABG Hemoglobin Sodium Potassium 5.1 H Chloride Carbon Dioxide BUN 53 H Creatinine 6.1 H Glucose 122 H POC Glucose 108 H Calcium AST Total Protein Albumin Prealbumin Vitamin B12 Crossmatch 07/25/20 07/25/20 07/26/20 11:18 21:17 11:35 WBC RBC Hgb Hct MCV RDW Plt Count Lymph % (Auto) [place] % (Auto) Lymph # (Auto) Seg Neutrophils % Seg Neuts % (Manual) Lymphocytes % (Manual) Seg Neutrophils # Seg Neutrophils # Man Monocytes # (Manual) APTT ABG pH ABG pO2 ABG Hemoglobin Sodium Potassium Chloride Carbon Dioxide BUN Creatinine Glucose POC Glucose 133 H 68 L 45 L Calcium AST Total Protein Albumin Prealbumin Vitamin B12 Crossmatch 07/26/20 07/26/20 07/26/20 12:27 12:51 16:27 WBC RBC Hgb Hct MCV RDW Plt Count Lymph % (Auto) [place] % (Auto) Lymph # (Auto) Seg Neutrophils % Seg Neuts % (Manual) Lymphocytes % (Manual) Seg Neutrophils # Seg Neutrophils # Man Monocytes # (Manual) APTT ABG pH ABG pO2 ABG Hemoglobin Sodium Potassium Chloride Carbon Dioxide BUN Creatinine Glucose POC Glucose 65 L 124 H 52 L Calcium AST Total Protein Albumin Prealbumin Vitamin B12 Crossmatch 07/26/20 07/27/20 07/27/20 18:13 05:21 05:21 WBC 11.5 H RBC 3.16 L Hgb 10.0 L Hct 29.8 L MCV 95 H RDW Plt Count Lymph % (Auto) [place] % (Auto) Lymph # (Auto) Seg Neutrophils % Seg Neuts % (Manual) Lymphocytes % (Manual) Seg Neutrophils # Seg Neutrophils # Man Monocytes # (Manual) APTT ABG pH ABG pO2 ABG Hemoglobin Sodium Potassium Chloride Carbon Dioxide BUN 45 H Creatinine 5.6 H Glucose POC Glucose 147 H Calcium AST Total Protein Albumin Prealbumin Vitamin B12 Crossmatch 07/27/20 07/27/20 07/27/20 07:37 09:10 16:25 WBC RBC Hgb Hct MCV RDW Plt Count Lymph % (Auto) [place] % (Auto) Lymph # (Auto) Seg Neutrophils % Seg Neuts % (Manual) Lymphocytes % (Manual) Seg Neutrophils # Seg Neutrophils # Man Monocytes # (Manual) APTT ABG pH ABG pO2 ABG Hemoglobin Sodium Potassium Chloride Carbon Dioxide BUN Creatinine Glucose POC Glucose 41 L 129 H Calcium AST Total Protein Albumin Prealbumin 0.116 L Vitamin B12 Crossmatch 07/27/20 07/27/20 07/28/20 16:25 21:16 11:41 WBC RBC Hgb Hct MCV RDW Plt Count Lymph % (Auto) [place] % (Auto) Lymph # (Auto) Seg Neutrophils % Seg Neuts % (Manual) Lymphocytes % (Manual) Seg Neutrophils # Seg Neutrophils # Man Monocytes # (Manual) APTT ABG pH ABG pO2 ABG Hemoglobin Sodium Potassium Chloride Carbon Dioxide BUN Creatinine Glucose POC Glucose 123 H 117 H Calcium AST Total Protein Albumin Prealbumin Vitamin B12 980.0 H Crossmatch 07/28/20 07/28/20 07/29/20 15:47 22:07 07:42 WBC RBC Hgb Hct MCV RDW Plt Count Lymph % (Auto) [place] % (Auto) Lymph # (Auto) Seg Neutrophils % Seg Neuts % (Manual) Lymphocytes % (Manual) Seg Neutrophils # Seg Neutrophils # Man Monocytes # (Manual) APTT ABG pH ABG pO2 ABG Hemoglobin Sodium Potassium Chloride Carbon Dioxide BUN Creatinine Glucose POC Glucose 148 H 119 H 106 H Calcium AST Total Protein Albumin Prealbumin Vitamin B12 Crossmatch 07/29/20 07/29/20 07/29/20 11:08 12:55 22:46 WBC RBC Hgb Hct MCV RDW Plt Count Lymph % (Auto) [place] % (Auto) Lymph # (Auto) Seg Neutrophils % Seg Neuts % (Manual) Lymphocytes % (Manual) Seg Neutrophils # Seg Neutrophils # Man Monocytes # (Manual) APTT ABG pH 7.316 L ABG pO2 131.0 H ABG Hemoglobin 9.4 L Sodium Potassium Chloride Carbon Dioxide BUN Creatinine Glucose POC Glucose 117 H 125 H Calcium AST Total Protein Albumin Prealbumin Vitamin B12 Crossmatch 07/30/20 07/30/20 07/30/20 04:17 04:17 07:50 WBC RBC 2.95 L Hgb 9.4 L Hct 28.4 L MCV 96 H RDW Plt Count Lymph % (Auto) [place] % (Auto) Lymph # (Auto) Seg Neutrophils % Seg Neuts % (Manual) Lymphocytes % (Manual) Seg Neutrophils # Seg Neutrophils # Man Monocytes # (Manual) APTT ABG pH ABG pO2 ABG Hemoglobin Sodium Potassium Chloride Carbon Dioxide BUN 46 H Creatinine 5.8 H Glucose POC Glucose 47 L Calcium 8.3 L AST Total Protein Albumin Prealbumin Vitamin B12 Crossmatch 07/30/20 07/30/20 07/31/20 16:33 21:25 07:26 WBC RBC Hgb Hct MCV RDW Plt Count Lymph % (Auto) [place] % (Auto) Lymph # (Auto) Seg Neutrophils % Seg Neuts % (Manual) Lymphocytes % (Manual) Seg Neutrophils # Seg Neutrophils # Man Monocytes # (Manual) APTT ABG pH ABG pO2 ABG Hemoglobin Sodium Potassium 5.4 H Chloride Carbon Dioxide BUN 50 H Creatinine 5.8 H Glucose 112 H POC Glucose 123 H 59 L Calcium 8.1 L AST Total Protein Albumin Prealbumin Vitamin B12 Crossmatch 07/31/20 07/31/20 07/31/20 09:03 10:47 14:09 WBC RBC 2.73 L Hgb 8.7 L Hct 26.6 L MCV 97 H RDW 15.3 H Plt Count Lymph % (Auto) [place] % (Auto) 8.7 H Lymph # (Auto) Seg Neutrophils % 74.7 H Seg Neuts % (Manual) Lymphocytes % (Manual) Seg Neutrophils # Seg Neutrophils # Man Monocytes # (Manual) APTT ABG pH ABG pO2 ABG Hemoglobin Sodium Potassium Chloride Carbon Dioxide BUN 29 H Creatinine 4.3 H Glucose 106 H POC Glucose 48 L Calcium 8.0 L AST Total Protein Albumin Prealbumin Vitamin B12 Crossmatch 07/31/20 07/31/20 08/01/20 16:01 20:04 10:42 WBC RBC Hgb Hct MCV RDW Plt Count Lymph % (Auto) [place] % (Auto) Lymph # (Auto) Seg Neutrophils % Seg Neuts % (Manual) Lymphocytes % (Manual) Seg Neutrophils # Seg Neutrophils # Man Monocytes # (Manual) APTT ABG pH ABG pO2 ABG Hemoglobin Sodium Potassium Chloride Carbon Dioxide BUN Creatinine Glucose POC Glucose 69 L 111 H 109 H Calcium AST Total Protein Albumin Prealbumin Vitamin B12 Crossmatch 08/01/20 08/02/20 08/03/20 13:49 08:45 07:55 WBC RBC Hgb Hct MCV RDW Plt Count Lymph % (Auto) [place] % (Auto) Lymph # (Auto) Seg Neutrophils % Seg Neuts % (Manual) Lymphocytes % (Manual) Seg Neutrophils # Seg Neutrophils # Man Monocytes # (Manual) APTT ABG pH ABG pO2 ABG Hemoglobin Sodium 134 L Potassium Chloride Carbon Dioxide BUN 38 H Creatinine 5.7 H Glucose 105 H POC Glucose 69 L 38 L Calcium 8.2 L AST Total Protein Albumin Prealbumin Vitamin B12 Crossmatch 08/03/20 08/03/20 08/03/20 08:03 11:32 12:30 WBC RBC Hgb Hct MCV RDW Plt Count Lymph % (Auto) [place] % (Auto) Lymph # (Auto) Seg Neutrophils % Seg Neuts % (Manual) Lymphocytes % (Manual) Seg Neutrophils # Seg Neutrophils # Man Monocytes # (Manual) APTT ABG pH ABG pO2 ABG Hemoglobin Sodium Potassium Chloride Carbon Dioxide BUN Creatinine Glucose POC Glucose 223 H 136 H 119 H Calcium AST Total Protein Albumin Prealbumin Vitamin B12 Crossmatch 08/03/20 08/04/20 08/04/20 21:38 07:32 08:25 WBC RBC Hgb Hct MCV RDW Plt Count Lymph % (Auto) [place] % (Auto) Lymph # (Auto) Seg Neutrophils % Seg Neuts % (Manual) Lymphocytes % (Manual) Seg Neutrophils # Seg Neutrophils # Man Monocytes # (Manual) APTT ABG pH ABG pO2 ABG Hemoglobin Sodium Potassium Chloride Carbon Dioxide BUN Creatinine Glucose POC Glucose 133 H 54 L 126 H Calcium AST Total Protein Albumin Prealbumin Vitamin B12 Crossmatch 08/04/20 08/04/20 08/04/20 12:06 12:06 15:51 WBC RBC 2.63 L Hgb 8.4 L Hct 25.4 L MCV 97 H RDW Plt Count Lymph % (Auto) 7.6 L [place] % (Auto) Lymph # (Auto) 0.6 L Seg Neutrophils % 81.8 H Seg Neuts % (Manual) Lymphocytes % (Manual) Seg Neutrophils # Seg Neutrophils # Man Monocytes # (Manual) APTT ABG pH ABG pO2 ABG Hemoglobin Sodium 132 L Potassium Chloride 96.8 L Carbon Dioxide BUN Creatinine 4.0 H Glucose 131 H POC Glucose 126 H Calcium 7.8 L AST Total Protein 5.3 L Albumin 2.2 L Prealbumin Vitamin B12 Crossmatch 08/05/20 08/05/20 08/05/20 09:34 09:34 21:22 WBC RBC 2.54 L Hgb 8.0 L Hct 24.3 L MCV 95 H RDW 15.3 H Plt Count Lymph % (Auto) 11.3 L [place] % (Auto) 7.7 H Lymph # (Auto) 1.0 L Seg Neutrophils % 77.6 H Seg Neuts % (Manual) Lymphocytes % (Manual) Seg Neutrophils # Seg Neutrophils # Man Monocytes # (Manual) APTT ABG pH ABG pO2 ABG Hemoglobin Sodium 132 L Potassium Chloride 95.2 L Carbon Dioxide BUN 24 H Creatinine 5.0 H Glucose 106 H POC Glucose 50 L Calcium 8.0 L AST Total Protein 5.0 L Albumin 2.1 L Prealbumin Vitamin B12 Crossmatch 08/06/20 08/06/20 08/07/20 04:56 04:56 04:56 WBC 23.6 H RBC 2.55 L 1.82 L Hgb 8.1 L 5.8 L* Hct 24.5 L 17.5 L* D MCV 96 H 97 H RDW 15.4 H Plt Count 129 L Lymph % (Auto) 10.9 L [place] % (Auto) 7.9 H Lymph # (Auto) 1.1 L Seg Neutrophils % 79.0 H Seg Neuts % (Manual) 89.0 H Lymphocytes % (Manual) 6.0 L Seg Neutrophils # 8.2 H Seg Neutrophils # Man 21.0 H Monocytes # (Manual) 1.2 H APTT ABG pH ABG pO2 ABG Hemoglobin Sodium 127 L Potassium Chloride 91.9 L Carbon Dioxide BUN 28 H Creatinine 5.8 H Glucose POC Glucose Calcium 7.9 L AST Total Protein 5.0 L Albumin 1.9 L Prealbumin Vitamin B12 Crossmatch 08/07/20 08/07/20 08/07/20 04:56 08:56 09:05 WBC RBC Hgb 6.6 L Hct 20.2 L MCV RDW Plt Count Lymph % (Auto) [place] % (Auto) Lymph # (Auto) Seg Neutrophils % Seg Neuts % (Manual) Lymphocytes % (Manual) Seg Neutrophils # Seg Neutrophils # Man Monocytes # (Manual) APTT ABG pH ABG pO2 ABG Hemoglobin Sodium 133 L Potassium Chloride 96.2 L Carbon Dioxide 31 H BUN Creatinine 3.7 H Glucose 132 H POC Glucose Calcium 7.8 L AST 43 H Total Protein 4.9 L Albumin 2.0 L Prealbumin Vitamin B12 Crossmatch See Detail 08/07/20 08/08/20 08/08/20 23:55 01:08 05:04 WBC 12.4 H RBC 3.02 L Hgb 9.4 L Hct 27.5 L D MCV RDW 17.2 H Plt Count Lymph % (Auto) 7.1 L [place] % (Auto) Lymph # (Auto) 0.9 L Seg Neutrophils % 85.1 H Seg Neuts % (Manual) Lymphocytes % (Manual) Seg Neutrophils # 10.5 H Seg Neutrophils # Man Monocytes # (Manual) APTT ABG pH ABG pO2 ABG Hemoglobin Sodium Potassium Chloride Carbon Dioxide BUN Creatinine Glucose POC Glucose 68 L 68 L Calcium AST Total Protein Albumin Prealbumin Vitamin B12 Crossmatch 08/08/20 08/08/20 08/08/20 05:04 05:19 12:01 WBC RBC Hgb Hct MCV RDW Plt Count Lymph % (Auto) [place] % (Auto) Lymph # (Auto) Seg Neutrophils % Seg Neuts % (Manual) Lymphocytes % (Manual) Seg Neutrophils # Seg Neutrophils # Man Monocytes # (Manual) APTT ABG pH ABG pO2 ABG Hemoglobin Sodium 133 L Potassium Chloride 96.6 L Carbon Dioxide BUN 24 H Creatinine 4.7 H Glucose POC Glucose 68 L 122 H Calcium 8.3 L AST 48 H Total Protein 5.2 L Albumin 2.2 L Prealbumin Vitamin B12 Crossmatch 08/08/20 08/09/20 08/09/20 17:12 13:27 14:54 WBC RBC 2.62 L Hgb 8.2 L Hct 24.2 L MCV RDW 16.7 H Plt Count Lymph % (Auto) [place] % (Auto) Lymph # (Auto) Seg Neutrophils % Seg Neuts % (Manual) Lymphocytes % (Manual) Seg Neutrophils # Seg Neutrophils # Man Monocytes # (Manual) APTT ABG pH ABG pO2 ABG Hemoglobin Sodium Potassium Chloride Carbon Dioxide BUN Creatinine 3.8 H Glucose 115 H POC Glucose 106 H Calcium 8.0 L AST Total Protein Albumin Prealbumin Vitamin B12 Crossmatch 08/09/20 08/10/20 08/10/20 15:19 00:03 05:23 WBC RBC Hgb Hct MCV RDW Plt Count Lymph % (Auto) [place] % (Auto) Lymph # (Auto) Seg Neutrophils % Seg Neuts % (Manual) Lymphocytes % (Manual) Seg Neutrophils # Seg Neutrophils # Man Monocytes # (Manual) APTT ABG pH ABG pO2 ABG Hemoglobin Sodium Potassium Chloride Carbon Dioxide BUN Creatinine Glucose POC Glucose 118 H 46 L 45 L Calcium AST Total Protein Albumin Prealbumin Vitamin B12 Crossmatch 08/10/20 08/10/20 08/11/20 11:34 23:44 05:43 WBC RBC 2.74 L Hgb 8.6 L Hct 25.4 L MCV RDW 16.6 H Plt Count Lymph % (Auto) 5.9 L [place] % (Auto) Lymph # (Auto) 0.6 L Seg Neutrophils % 85.6 H Seg Neuts % (Manual) Lymphocytes % (Manual) Seg Neutrophils # 8.9 H Seg Neutrophils # Man Monocytes # (Manual) APTT ABG pH ABG pO2 ABG Hemoglobin Sodium Potassium Chloride Carbon Dioxide BUN Creatinine Glucose POC Glucose 50 L 117 H Calcium AST Total Protein Albumin Prealbumin Vitamin B12 Crossmatch 08/11/20 05:43 WBC RBC Hgb Hct MCV RDW Plt Count Lymph % (Auto) [place] % (Auto) Lymph # (Auto) Seg Neutrophils % Seg Neuts % (Manual) Lymphocytes % (Manual) Seg Neutrophils # Seg Neutrophils # Man Monocytes # (Manual) APTT ABG pH ABG pO2 ABG Hemoglobin Sodium 133 L Potassium Chloride 97.1 L Carbon Dioxide BUN Creatinine 3.1 H Glucose 106 H POC Glucose Calcium 7.8 L AST Total Protein Albumin Prealbumin Vitamin B12 Crossmatch Chest x-ray: report reviewed, image reviewed (pleural eff on rt larger than 08/07)
--- NOTE | 2020-08-11 09:40 | Progress Note ---
Subjective Date of service: 08/11/20 Principal diagnosis: Peripheral vascular disease with gangrene Interval history: Assessment: * ESRD * HTN * PVD * Gangrene * Anemia in ESRD Plan: * Continue MWF * uf as tolerated, Sodium noted, fluid restriction * renal diet * dialysis access is a central venous catheter. Site c/d/i * Continue antihypertensives * Continue epogen q treatment * Keep MAP>65 * Diet and nutrition: Patient needs to be on high protein diet - 1.2-1.4 g/kg/d * Multiple other complex comorbidities currently being managed by primary team * peripheral arterial disease/gangrene, vascular note reviewed. * Acute encephalopathy - improving, pain medications discontinued. CT head negative for stroke. Management per primary. * Will continue to follow and make recommendation for renal standpoint Subjective Principal diagnosis: Peripheral vascular disease with gangrene Interval history: More alert today Patient was seen for his renal issues Nursing, interdisciplinary and consult notes were reviewed Vitals, input and output, medications and labs were reviewed Objective - Exam Narrative Exam: General: No acute distress HEENT: Oral mucosa moist Neck: Supple, no JVD Chest: Clear to auscultation bilaterally Heart: RRR, S1 and S2, no pericardial rub Abdomen: Soft, nontender, no renal bruit Extremity: No peripheral cyanosis, edema. LE dressing noted. Neurological: Awake and alert Dermatology: No skin rash Psych: Calm and cooperative Musculoskeletal: No joint effusion Objective - Vital Signs Vital signs: Vital Signs - 12hr 08/10/20 08/10/20 08/10/20 22:00 22:35 22:37 Temperature Pulse Rate 62 70 70 Respiratory 18 Rate Respiratory 14 Rate [Butt] Blood Pressure 120/66 120/66 O2 Sat by Pulse 96 Oximetry 08/10/20 08/10/20 08/11/20 23:43 23:45 04:18 Temperature 98.8 F 98.7 F Pulse Rate 63 77 Respiratory 17 19 Rate Respiratory Rate [Butt] Blood Pressure 132/48 145/50 O2 Sat by Pulse 88 92 91 Oximetry 08/11/20 08/11/20 05:01 07:58 Temperature 97.4 F L Pulse Rate 77 75 Respiratory 22 Rate Respiratory Rate [Butt] Blood Pressure 145/50 139/52 O2 Sat by Pulse 98 Oximetry - Lab 08/11/20 05:43 08/11/20 05:43 Most recent lab results ABG pH 7.316 pH Units (7.350-7.450) L 07/29/20 12:55 ABG pCO2 48.6 mm Hg 07/29/20 12:55 ABG pO2 131.0 mm Hg (80.0-90.0) H 07/29/20 12:55 ABG HCO3 24.3 mmol/L (20.0-26.0) 07/29/20 12:55 ABG O2 Saturation 98.3 % (95.0-99.0) 07/29/20 12:55 Calcium 7.8 mg/dL (8.4-10.2) L 08/11/20 05:43 Medications & Allergies - Medications Allergies/Adverse Reactions: Allergies No Known Allergies Allergy (Verified 05/01/15 08:52) Home Medications: Home Medications Medication Instructions Recorded Confirmed Last Taken Type Calcium Acetate [Phoslo] 667 mg PO TID 07/24/20 07/24/20 Unknown History Fenofibrate 160 mg PO QDAY 07/24/20 07/24/20 Unknown History Gabapentin [Neurontin] 100 mg PO Q8HR 07/24/20 07/24/20 Unknown History HYDROcodone/ACETAMINOPHEN 1 each PO Q8HR PRN 07/24/20 07/24/20 Unknown History [Hydrocodone-Acetamin 5-300 mg] Losartan Potassium 100 mg PO QDAY 07/24/20 07/24/20 Unknown History Montelukast [Singulair] 10 mg PO QPM 07/24/20 07/24/20 Unknown History Sevelamer Carbonate [Renvela] 800 mg PO TIDWM 07/24/20 07/24/20 Unknown History Simvastatin 40 mg PO QDAY 07/24/20 07/24/20 Unknown History allopurinoL [Zyloprim] 100 mg PO QDAY 07/24/20 07/24/20 Unknown History traZODone [Desyrel] 50 mg PO QHS 07/24/20 07/24/20 Unknown History traZODone [Desyrel] 50 mg PO QHS 07/24/20 07/24/20 Unknown History Active Medications: Generic Name Dose Route Start Last Admin Trade Name Freq PRN Reason Stop Dose Admin Acetaminophen 650 mg 07/24/20 12:34 08/09/20 22:05 Acetaminophen 325 Mg Tab PO 650 mg Q4H PRN Administration Pain MILD(1-3)/Fever >100.5/ANDRADE Acetaminophen 650 mg 07/31/20 13:52 07/31/20 16:11 Acetaminophen 650 Mg Rect Supp [place] 650 mg Q4H PRN Administration Fever >101 Albuterol 2.5 mg 07/24/20 12:30 08/09/20 18:28 Albuterol 2.5 Mg/3 Ml Nebu IH 2.5 mg Q4HRT PRN Administration Shortness Of Breath Allopurinol 100 mg 07/25/20 10:00 08/10/20 09:37 Allopurinol 100 Mg Tab PO 100 mg QDAY SADAF Administration Aspirin 81 mg 07/30/20 16:00 08/10/20 09:37 Aspirin Ec 81 Mg Tab PO 81 mg QDAY SADAF Administration Calcium Acetate 667 mg 07/24/20 17:00 08/10/20 16:35 Calcium Acetate 667 Mg Cap PO Not Given TIDWM SADAF Carvedilol 6.25 mg 07/24/20 22:00 08/10/20 22:37 Carvedilol 6.25 Mg Tab PO 6.25 mg BID SADAF Administration Clopidogrel Bisulfate 75 mg 07/31/20 10:00 08/10/20 09:37 Clopidogrel 75 Mg Tab PO 75 mg QDAY SADAF Administration Dextrose 50 ml 07/31/20 08:37 08/10/20 05:33 Dextrose 50% In Water (25gm) 50 Ml Syringe IV 50 ml Q30MIN PRN Administration Hypoglycemia Protocol Doxazosin Mesylate 4 mg 07/26/20 10:00 08/10/20 11:26 Doxazosin 4 Mg Tab PO 4 mg DAILY SADAF Administration Fenofibrate 145 mg 07/25/20 10:00 08/10/20 09:37 Fenofibrate 145 Mg Tab PO 145 mg DAILY SADAF Administration Ferrous Sulfate 325 mg 07/24/20 22:00 08/10/20 22:34 Ferrous Sulfate 325 Mg Tab PO 325 mg BID SADAF Administration Fish Oil 1,000 mg 07/25/20 10:00 08/10/20 11:26 [place]-3 Fatty Acids/Fish Oil 1 Gram Cap PO Not Given DAILY SADAF Hydralazine HCl 50 mg 07/28/20 22:00 08/11/20 05:01 Hydralazine 25 Mg Tab PO 50 mg Q8HR SADAF Administration Hydralazine HCl 10 mg 07/28/20 16:22 08/02/20 08:46 Hydralazine 20 Mg/1 Ml Inj IV 10 mg Q6H PRN Administration Blood Pressure Dextrose 1,000 mls @ 75 mls/hr 07/31/20 12:00 08/11/20 08:21 D10w IV 75 mls/hr DIRECT SADAF Administration Clindamycin HCl 900 mg in 50 mls @ 100 mls/hr 08/09/20 17:00 08/11/20 00:42 Cleocin 900 Mg/50 Ml IV 08/12/20 09:29 100 mls/hr Q8H SADAF Administration Protocol Piperacillin Sod/Tazobactam Sod 3.375 gm in 50 mls @ 100 mls/hr 08/10/20 17:00 08/10/20 17:48 Zosyn/Ns 3.375gm/50ml IV 100 mls/hr Q12H SADAF Administration Protocol Lidocaine HCl 1 applic 08/07/20 13:00 08/11/20 00:45 Butt Paste 50 Applic/100 Gm Jar TP 1 applic BID SADAF Administration Losartan Potassium 100 mg 07/25/20 10:00 08/10/20 11:26 Losartan 50 Mg Tab PO 100 mg QDAY SADAF Administration Montelukast Sodium 10 mg 07/24/20 18:00 08/10/20 18:46 Montelukast 10 Mg Tab PO 10 mg QPM SADAF Administration Multivit/Ca Carb/B Cmplx/FA/Prenat 1 cap 07/26/20 10:00 08/10/20 11:26 Folic Acid/Vit B Comp W-C 1 Mg (Renal Caps) PO 1 cap QDAY SADAF Administration Multivitamins/Minerals 1 each 07/25/20 10:00 08/10/20 09:37 Multivitamins,Ther W-Minerals Tab PO 1 each QDAY SADAF Administration Ondansetron HCl 4 mg 07/24/20 12:00 Ondansetron 4 Mg/2 Ml Inj IV Q8H PRN Nausea And Vomiting Pravastatin Sodium 80 mg 07/24/20 22:00 08/10/20 22:34 Pravastatin 80 Mg Tab PO 80 mg QHS SADAF Administration Sevelamer Carbonate 800 mg 07/24/20 17:00 08/10/20 16:35 Sevelamer Carbonate 800 Mg Tab PO Not Given TIDWM SADAF Sodium Chloride 10 ml 07/24/20 12:30 08/11/20 00:45 Sodium Chloride 0.9% 10 Ml Flush Syringe IV 10 ml BID SADAF Administration Sodium Chloride 10 ml 07/24/20 12:30 07/24/20 12:39 Sodium Chloride 0.9% 10 Ml Flush Syringe IV 10 ml PRN PRN Administration LINE FLUSH
[2020-08-11] MEDS: allopurinoL 100 MG TAB PO SCH (09:57)
[2020-08-11] MEDS: CLOPIDOGREL 75 MG TAB PO SCH (09:58)
[2020-08-11] MEDS: OMEGA-3 FATTY ACIDS/FISH OIL 1 GRAM CAP PO SCH (09:58)
[2020-08-11] MEDS: FENOFIBRATE 145 MG TAB PO SCH (09:58)
[2020-08-11] MEDS: FERROUS SULFATE 325 MG TAB PO SCH ×2 (09:58→21:17)
[2020-08-11] MEDS: MULTIVITAMINS,THER W-MINERALS TAB PO SCH (09:58)
[2020-08-11] MEDS: ASPIRIN EC 81 MG TAB PO SCH (09:58)
[2020-08-11] MEDS: FOLIC ACID/VIT B COMP W-C 1 MG (RENAL CAPS) PO SCH (09:58)
[2020-08-11] MEDS: carvediloL 6.25 MG TAB PO SCH ×2 (10:02→21:17)
[2020-08-11] MEDS: DOXAZOSIN 4 MG TAB PO SCH (10:02)
[2020-08-11] MEDS: LOSARTAN 50 MG TAB PO SCH (10:02)
--- NOTE | 2020-08-11 13:10 | Progress Note ---
Assessment and Plan --Sepsis Secondary to lower extremity cellulitis and possible scrotal abscess ID recommendations appreciated Patient restarted on IV antibiotics --Peripheral vascular disease with gangrene of the left first and second toe Now status post angiography with angioplasty of the distal femoral vessels Continue aspirin and Plavix Vascular surgery following s/p vascularization of bilateral upper extremities and left iliac system --Pseudoaneurysm, right groin Developed following angiogram Palpable pulsatile mass in right groin was nontender but correlates with the ultrasound finding of persistent pseudoaneurysm. Placed pressure dressing over the area, s/p Ultrasound-guided vessel identification today and no thrombin injection required Continue pressure compression, plan to remove the compression tomorrow 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 Verbal prompting, verbal redirection Continue aspirin and Plavix --Gout Continue allopurinol --BPH Continue doxazosin --Moderate protein calorie malnutrition Nutrition referral Diet supplements --Hypoglycemia Due to poor intake Continue diet D10W #ESRD Hemodialysis as scheduled Nephrology following --Acute hypoxia with respiratory failure-continue supplemental O2 as needed --Stage 1 pressure ulcer sacrum-wound care -- Scrotal wound with drainage Need to rule out scrotal abscess US scrotum ordered ID consulted Urology consulted but service not available Antibiotics - vancomycin, ceftriaxone Per surgery continue to treat for antibiotics and topical antifungal cream --Advance care planning May need placement. Sons number is Timmy Beckman --DVT prophylaxis SCD to bilateral lower extremities while in bed, prophylactic anticoagulation. Brief history: 80 YO Male with ESRD on HD (M, W, F), HTN, DM, Vascular Dementia, Cerebral Atherosclerosis presents to ED with confusion. As per the patient's the patient has experienced increased weakness and confusion over the past 1 month with increased bedbound status. In the ER, patient found to have end-stage renal disease, left foot cellulitis complicated by systemic inflammatory response syndrome, as well as peripheral vascular disease. Patient admitted to medical floor and initiated on IV antibiotic therapy. Nephrology and vascular team consulted in ED. CT: Head: Negative for acute pathology. Daily clinical course: 07/25: Discussed with the IR, patient with new onset Altered mental status from the last time they saw the patient. Will begin work-up for possible underlying sepsis etiology or source unknown at this time. Will obtain ID consulted and Neurology. Continue abx, attempted to reach family. Concern for stroke is low but considering hx of vasculopathy will obtain Neurol ogy Will also obtain wound consultation. 07/26: Some improvement noted with initiation of antibiotics. We will continue current management patient continues on hemodialysis. Will await further vascul ar improvement as patient is beginning to show some improvement. Discussed with case management. Apparently the person that came with the patient is not the patient's but a caregiver H&P portion of this note has been corrected. Continue wound care and every 2 hours turns. 07/27: Continue current management plan. Vascular to re-evaluate. Continue abx. MRI with no acute pathology. Agree with the D5 as patient still has some intermittent confusion. Continue to monitor. Speech evaluation for swallow management. 07/28: Patient clinically stable, continue supportive care, abx, awaiting full vascular input. cONTINUE D5 for now. 07/29: We will give patient dose of Lasix, get a chest x-ray. Discussed with nursing staff could be that the patient was appear hypoxic due to cold extremities. Will obtain an ABG. We will also obtain a pulmonary consult for clearance for anticipated vascular procedure in a.m. 07/30: Noted hypoglycemia this morning we will give D50 and amp. Patient is for procedure today. Discussed with vascular. Per discussion with nursing saturation has improved. Pulmonary input is noted. He was admitted for digital gangrene on multiple digits both fingers and toes. Was also noted to be septic requiring treatment which has led to improvement in his mental status. 07/31. Now status post angiography and angioplasty of distal femoral arteries. Now on antiplatelets. He has been having episodes of hypoglycemia. Started him on D10 water. Continue to monitor closely for now. CT head ordered to rule out any CVA though not likely. Vascular surgery following. 08/01. Patient remains lethargic. Discontinued pain medications and gabapentin. On IV antibiotics. Started on D10 water yesterday for hypoglycemia. If lethargy does not improve, will place an NG tube. CT head negative for any stroke. 08/02. More responsive today. Still gets agitated and pulling on his IV lines so was placed on restraints. Needs to have a repeat swallow evaluation. Blood glu cose is table. 08/03. Responsive today. Alert and oriented x2. Will get vascular to reevaluate. Needs to have revascularization of LE vessels as per vascular. Passed swallow evaluation yesterday and has been started on a diet. 08/04. Plan for vascularization of the extremities as per vascular. 08/05. No complaints today. Plan for revascularization tomorrow. NPO after midnight 08/06. Plan for revascularization today. He will need placement but PT yet to see. 08/07: Status post revascularization yesterday. H&H dropped today to 5.6. Patient noted to form pseudoaneurysm at the revascularization area. Patient also noted to have low BP -ordered for packed RBC and transferred to ICU for moe se monitoring. Continue D10 W 08/08: Status post hemodialysis today, H&H stable, vitals stable. Transfer out to telemetry. Patient has been seen by vascular surgeon, plan for thrombin injection tomorrow unless pseudoaneurysm thrombosis overnight with compression. N.p.o. after midnight 08/09: s/p Ultrasound-guided vessel identification today and no thrombin injection required. Continue pressure compression, plan to remove the compression tomorrow. Reconsult PT, continue IV antibiotics. Will consult urology for possible scrotal abscess 08/10: Urology not available, consult GS for scrotal abscess. Becoming hypoglycemic - increase the rate of D10W to 75 mill per hour. Order for a.m. labs 08/01: Blood glucose stable, patient having low-grade fever. Wait for urology service to be available to evaluate the patient. Subjective Date of service: 08/11/20 Principal diagnosis: Peripheral vascular disease with gangrene Interval history: Patient seen and examined BP stable, no overnight acute event Discussed with RN Objective - Exam Narrative Exam: GENERAL: Alert and awake HEAD: No signs of head trauma. EYES: Pupils are equal. Extraocular motions intact. MOUTH: Oropharynx is normal. NECK: No adenopathy, no JVD. CHEST: Chest with diminished breath sounds bilaterally. No wheezes, rales, or rhonchi. CARDIAC: normal S1 and S2, without murmurs, gallops, or rubs. ABDOMEN: Soft, non tender and non distended. No rebound or guarding, and no masses palpated. Bowel Sounds normal. MUSCULOSKELETAL: LLE: Gangrenous looking big toe, proximal area of the leg feels warm to touch. Gangrenous scrotum with oozing pus NEUROLOGIC EXAM: Generalized weakness SKIN: No obvious lesions - Constitutional Vitals: Vital Signs - 12hr 08/11/20 08/11/20 08/11/20 04:18 05:01 07:58 Temperature 98.7 F 97.4 F L Pulse Rate 77 77 75 Pulse Rate [ From Monitor] Pulse Rate [ Right Dorsalis Pedis] Respiratory 19 22 Rate Respiratory Rate [Butt] Blood Pressure 145/50 145/50 139/52 O2 Sat by Pulse 91 98 Oximetry 08/11/20 08/11/20 08/11/20 10:00 10:02 11:16 Temperature 97.5 F L Pulse Rate 80 73 69 Pulse Rate [ 80 From Monitor] Pulse Rate [ 80 Right Dorsalis Pedis] Respiratory 17 22 Rate Respiratory 16 Rate [Butt] Blood Pressure 146/57 128/49 O2 Sat by Pulse 97 82 L Oximetry 08/11/20 13:05 Temperature Pulse Rate 68 Pulse Rate [ From Monitor] Pulse Rate [ Right Dorsalis Pedis] Respiratory Rate Respiratory Rate [Butt] Blood Pressure 145/77 O2 Sat by Pulse Oximetry - Labs CBC & Chem 7: 08/11/20 05:43 08/11/20 05:43 Labs: Abnormal lab results 08/10/20 08/11/20 08/11/20 Range/Units 23:44 05:43 05:43 RBC 2.74 L (3.65-5.03) M/mm3 Hgb 8.6 L (11.8-15.2) gm/dl Hct 25.4 L (35.5-45.6) % RDW 16.6 H (13.2-15.2) % Lymph % (Auto) 5.9 L (13.4-35.0) % Lymph # (Auto) 0.6 L (1.2-5.4) K/mm3 Seg Neutrophils % 85.6 H (40.0-70.0) % Seg Neutrophils # 8.9 H (1.8-7.7) K/mm3 Sodium 133 L (137-145) mmol/L Chloride 97.1 L (98-107) mmol/L Creatinine 3.1 H (0.8-1.3) mg/dL Glucose 106 H (75-100) mg/dL POC Glucose 117 H (70-105) mg/dL Calcium 7.8 L (8.4-10.2) mg/dL
[2020-08-11] MEDS: ALBUTEROL 2.5 MG/3 ML NEBU IH PRN (15:19)
[2020-08-11] MEDS: MONTELUKAST 10 MG TAB PO SCH (17:06)
[2020-08-11] MEDS: PRAVASTATIN 80 MG TAB PO SCH (21:17)
[2020-08-12 04:40] VITALS: BP 136/43
[2020-08-12] MEDS: PIPERACILLIN/TAZOBACTAM 3.375 3.375 GM/50 ML BAG IV SCH (05:04)
[2020-08-12] MEDS: hydrALAZINE 25 MG TAB PO SCH (05:08)
[2020-08-12] MEDS ORDERED: EPINEPHrine 1 MG/10 ML SYRINGE ONE (07:25)
[2020-08-12] MEDS ORDERED: SODIUM BICARB 8.4% 50 MEQ/50 ML SYRINGE IV ONE ×2 (07:25→08:30)
[2020-08-12] MEDS ORDERED: CALCIUM CHLORIDE 1,000 MG/10 ML SYRINGE IV ONE (07:25)
[2020-08-12] MEDS ORDERED: ATROPINE 0.1% (1 MG/10 ML) CARDIAC SYRINGE ONE (07:25)
[2020-08-12] MEDS ORDERED: DEXTROSE 50% IN WATER (25GM) 50 ML SYRINGE IV ONE (07:25)
--- NOTE | 2020-08-12 08:53 | Event Note ---
Date: 08/12/20 CODE BLUE note: I responded to a CODE BLUE alert in this patient on telemetry. Nurse reported that the patient was awake and alert until he "bradycardia down and became unresponsive". CPR was initiated. A CODE BLUE was called. Patient is a chronic dialysis patient. At the time my encounter no further medical history was given to me. The hospitalist Dr. Nj also responded. CPR was directed. Ambu bag airway assist was ordered. Patient was given epinephrine, atropine, bicarb, calcium gluconate or chloride whenever was available, D50. There was no return of spontaneous circulation. Procedure note Patient was quite expeditiously intubated via direct laryngoscopy 7.5 Georgian endotracheal tube, single attempt. Bilateral breath sounds were appreciated with an end-tidal CO2 color change and no gastric breath sounds. There was no suction available. However endotracheal intubation was successful. CPR was continued without return of spontaneous circulation. The code was called by Dr. Nj. Diagnostic impression Cardiac arrest Chronic dialysis patient Procedure CPR Endotracheal intubation
--- NOTE | 2020-08-12 11:26 | Death Summary ---
Summary - Providers Date of service: 08/12/20 Consults: 07/24/20 11:42 Consult to Physician [CONS] Routine Comment: Consulting Provider: JOSE DOCKERY Physician Instructions: Reason For Exam: esrd 07/24/20 15:22 Consult to Wound/ET Nurse [CONS] Routine Reason For Exam: wound eval 07/25/20 09:38 Consult to Physician [CONS] Routine Comment: Consulting Provider: LONI CRAIG Physician Instructions: Reason For Exam: sepsis 07/25/20 10:18 Consult to Physician [CONS] Routine Comment: Consulting Provider: WAN CURTIS Physician Instructions: Reason For Exam: AMS 07/25/20 10:29 Physical Therapy Evaluation and Treat [CONS] Routine Comment: Reason For Exam: DEBILITY 07/26/20 07:00 Occupational Therapy Evaluate and Treat [CONS] Routine Comment: Reason For Exam: debility 07/27/20 09:54 Speech Therapy Evaluation and Treat [CONS] Routine Reason For Exam: SWALLOW EVAL 07/29/20 10:08 Consult to Physician [CONS] Routine Comment: Consulting Provider: JIGNESH RENO Physician Instructions: Reason For Exam: hypoxic respiratory failure 08/01/20 04:00 Speech Therapy Evaluation and Treat [CONS] Routine Reason For Exam: Swallow evaluation 08/06/20 15:00 Consult to Physician [CONS] Routine Comment: Consulting Provider: LUANNE PEÑA Physician Instructions: Reason For Exam: Scrotal infection 08/06/20 15:02 Consult to Physician [CONS] Routine Comment: Consulting Provider: XAVI MORALES Physician Instructions: Reason For Exam: Scrotal abscess with drainage 08/06/20 16:02 Consult to Wound/ET Nurse [CONS] Routine Reason For Exam: scrotal wound eval 08/07/20 09:39 Consult to Physician [CONS] Routine Comment: Consulting Provider: YANY CARRASCO Physician Instructions: Reason For Exam: respiratory distress 08/09/20 16:33 Physical Therapy Evaluation and Treat [CONS] Routine Comment: Reason For Exam: Debility 08/10/20 12:00 Consult to Physician [CONS] Routine Comment: Consulting Provider: JOSE CARLOS ANNA Physician Instructions: Reason For Exam: scrotal abscess Attending: ABRAHAN CHATMAN - summary Date of admission: 07/24/20 11:43 Date of : 08/12/20 Significant findings: Cause Of : Cardiorespiratory arrest due to sepsis, ESRD, PVD with gangrene, DM type 2 with hypoglycemia, malnutrition. Brief history: 80 YO Male with ESRD on HD (M, W, F), HTN, DM, Vascular Dementia, Cerebral Atherosclerosis presents to ED with confusion. As per the patient's the patient has experienced increased weakness and confusion over the past 1 month with increased bedbound status. In the ER, patient found to have end-stage renal disease, left foot cellulitis complicated by systemic inflammatory response syndrome, as well as peripheral vascular disease. Patient admitted to medical floor and initiated on IV antibiotic therapy. Nephrology and vascular team consulted in ED. CT: Head: Negative for acute pathology. Daily clinical course: 07/25: Discussed with the IR, patient with new onset Altered mental status from the last time they saw the patient. Will begin work-up for possible underlying sepsis etiology or source unknown at this time. Will obtain ID consulted and Neurology. Continue abx, attempted to reach family. Concern for stroke is low but considering hx of vasculopathy will obtain Neurology Will also obtain wound consultation. 07/26: Some improvement noted with initiation of antibiotics. We will continue current management patient continues on hemodialysis. Will await further vascular improvement as patient is beginning to show some improvement. Discussed with case management. Apparently the person that came with the patient is not the patient's but a caregiver H&P portion of this note has been corrected. Continue wound care and every 2 hours turns. 07/27: Continue current management plan. Vascular to re-evaluate. Continue abx. MRI with no acute pathology. Agree with the D5 as patient still has some intermittent confusion. Continue to monitor. Speech evaluation for swallow management. 07/28: Patient clinically stable, continue supportive care, abx, awaiting full vascular input. cONTINUE D5 for now. 07/29: We will give patient dose of Lasix, get a chest x-ray. Discussed with nursing staff could be that the patient was appear hypoxic due to cold extremities. Will obtain an ABG. We will also obtain a pulmonary consult for clearance for anticipated vascular procedure in a.m. 07/30: Noted hypoglycemia this morning we will give D50 and amp. Patient is for procedure today. Discussed with vascular. Per discussion with nursing saturation has improved. Pulmonary input is noted. He was admitted for digital gangrene on multiple digits both fingers and toes. Was also noted to be septic requiring treatment which has led to improvement in his mental status. 07/31. Now status post angiography and angioplasty of distal femoral arteries. Now on antiplatelets. He has been having episodes of hypoglycemia. Started him on D10 water. Continue to monitor closely for now. CT head ordered to rule out any CVA though not likely. Vascular surgery following. 08/01. Patient remains lethargic. Discontinued pain medications and gabapentin. On IV antibiotics. Started on D10 water yesterday for hypoglycemia. If lethargy does not improve, will place an NG tube. CT head negative for any stroke. 08/02. More responsive today. Still gets agitated and pulling on his IV lines so was placed on restraints. Needs to have a repeat swallow evaluation. Blood glucose is table. 08/03. Responsive today. Alert and oriented x2. Will get vascular to reevaluate. Needs to have revascularization of LE vessels as per vascular. Passed swallow evaluation yesterday and has been started on a diet. 08/04. Plan for vascularization of the extremities as per vascular. 08/05. No complaints today. Plan for revascularization tomorrow. NPO after midnight 08/06. Plan for revascularization today. He will need placement but PT yet to see. 08/07: Status post revascularization yesterday. H&H dropped today to 5.6. Patient noted to form pseudoaneurysm at the revascularization area. Patient also noted to have low BP -ordered for packed RBC and transferred to ICU for close monitoring. Continue D10 W 08/08: Status post hemodialysis today, H&H stable, vitals stable. Transfer out to telemetry. Patient has been seen by vascular surgeon, plan for thrombin injection tomorrow unless pseudoaneurysm thrombosis overnight with compression. N.p.o. after midnight 08/09: s/p Ultrasound-guided vessel identification today and no thrombin injection required. Continue pressure compression, plan to remove the compression tomorrow. Reconsult PT, continue IV antibiotics. Will consult urology for possible scrotal abscess 08/10: Urology not available, consult GS for scrotal abscess. Becoming hypoglycemic - increase the rate of D10W to 75 mill per hour. Order for a.m. labs 08/11: Blood glucose stable, patient having low-grade fever. Wait for urology service to be available to evaluate the patient. 08/12: Nurse reported that the patient was awake and alert until he "bradycardia down and became unresponsive". CPR was initiated. A CODE BLUE was called. CPR was directed per ACLS protocol. Patient was given epinephrine, atropine, bicarb, calcium gluconate or chloride whenever was available, D50. Patient was intubated during the code. Unfortunately, there was no return of spontaneous circulation. The code was called by Dr. Nj. I called patient's Sons Timmy Beckman , and updated him that patient . I offered my condolence. Problem list: --Sepsis Secondary to lower extremity cellulitis and possible scrotal abscess --Peripheral vascular disease with gangrene of the left first and second toe s/p vascularization of bilateral upper extremities and left iliac system --Pseudoaneurysm, right groin Developed following angiogram Palpable pulsatile mass in right groin was nontender but correlates with the ultrasound finding of persistent pseudoaneurysm. 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 Continued aspirin and Plavix --Gout Continued allopurinol --BPH Continued doxazosin --Moderate protein calorie malnutrition Nutrition referral placed with Diet supplements --Hypoglycemia Due to poor intake, placed on D10W --ESRD s/p Hemodialysis as scheduled and consulted Nephrology --Acute hypoxia with respiratory failure, likely from volume overload, s/p supplemental O2 as needed --Stage 1 pressure ulcer sacrum-wound care consulted -- Scrotal wound with drainage US scrotum ordered ID consulted placed Antibiotics - vancomycin, ceftriaxone Per surgery continue to treat for antibiotics and topical antifungal cream --DVT prophylaxis SCD to bilateral lower extremities while in bed, prophylactic anticoagulation.
== END 2020-08-12 11:42 | DRG 853 ==
LOC: CATHLABREC 06:17 → ED 06:17 → EDSTATUS 08:00 → 4A 11:43 → 3B-SURG 07-25 22:32 → IMCU 07-30 16:51 → 4A 08-01 16:08 → CC1 08-07 09:39 → 4A 08-08 20:42
PROVIDERS: ADMIT Internal Medicine; ATTEND Internal Medicine
PROC: 5A1D70Z Performance of Urinary Filtration, Intermittent, Less than 6 Hours Per Day (ICD-10-PCS; 2020-07-25)
PROC: 5A1D70Z Performance of Urinary Filtration, Intermittent, Less than 6 Hours Per Day (ICD-10-PCS; 2020-07-27)
PROC: 4A033R1 Measurement of Arterial Saturation, Peripheral, Percutaneous Approach (ICD-10-PCS; 2020-07-29)
PROC: B41J1ZZ Fluoroscopy of Other Lower Arteries using Low Osmolar Contrast (ICD-10-PCS; principal; 2020-07-30)
PROC: 04CL3ZZ Extirpation of Matter from Left Femoral Artery, Percutaneous Approach (ICD-10-PCS; 2020-07-30)
PROC: 047S3ZZ Dilation of Left Posterior Tibial Artery, Percutaneous Approach (ICD-10-PCS; 2020-07-30)
PROC: 5A1D70Z Performance of Urinary Filtration, Intermittent, Less than 6 Hours Per Day (ICD-10-PCS; 2020-07-30)
PROC: 5A1D70Z Performance of Urinary Filtration, Intermittent, Less than 6 Hours Per Day (ICD-10-PCS; 2020-08-01)
PROC: 5A1D70Z Performance of Urinary Filtration, Intermittent, Less than 6 Hours Per Day (ICD-10-PCS; 2020-08-03)
PROC: 047D3ZZ Dilation of Left Common Iliac Artery, Percutaneous Approach (ICD-10-PCS; 2020-08-06)
PROC: 047C3ZZ Dilation of Right Common Iliac Artery, Percutaneous Approach (ICD-10-PCS; 2020-08-06)
PROC: 037A3ZZ Dilation of Left Ulnar Artery, Percutaneous Approach (ICD-10-PCS; 2020-08-06)
PROC: 037C3ZZ Dilation of Left Radial Artery, Percutaneous Approach (ICD-10-PCS; 2020-08-06)
PROC: B41J1ZZ Fluoroscopy of Other Lower Arteries using Low Osmolar Contrast (ICD-10-PCS; 2020-08-06)
PROC: 5A1D70Z Performance of Urinary Filtration, Intermittent, Less than 6 Hours Per Day (ICD-10-PCS; 2020-08-06)
PROC: 3E053GC Introduction of Other Therapeutic Substance into Peripheral Artery, Percutaneous Approach (ICD-10-PCS; 2020-08-07)
PROC: 30233N1 Transfusion of Nonautologous Red Blood Cells into Peripheral Vein, Percutaneous Approach (ICD-10-PCS; 2020-08-07)
PROC: 5A1D70Z Performance of Urinary Filtration, Intermittent, Less than 6 Hours Per Day (ICD-10-PCS; 2020-08-08)
PROC: 5A1D70Z Performance of Urinary Filtration, Intermittent, Less than 6 Hours Per Day (ICD-10-PCS; 2020-08-10)
PROC: 5A1935Z Respiratory Ventilation, Less than 24 Consecutive Hours (ICD-10-PCS; 2020-08-12)
PROC: 0BH17EZ Insertion of Endotracheal Airway into Trachea, Via Natural or Artificial Opening (ICD-10-PCS; 2020-08-12)
DX: A41.9 Sepsis, unspecified organism (principal); N18.6 End stage renal disease; G93.41 Metabolic encephalopathy; J96.01 Acute respiratory failure with hypoxia; I63.9 Cerebral infarction, unspecified; L03.116 Cellulitis of left lower limb; I13.2 Hypertensive heart and chronic kidney disease with heart failure and with stage 5 chronic kidney disease, or end stage renal disease; N25.81 Secondary hyperparathyroidism of renal origin; E11.52 Type 2 diabetes mellitus with diabetic peripheral angiopathy with gangrene; I96 Gangrene, not elsewhere classified; E44.0 Moderate protein-calorie malnutrition; L89.151 Pressure ulcer of sacral region, stage 1; N40.0 Benign prostatic hyperplasia without lower urinary tract symptoms; E87.5 Hyperkalemia; E11.649 Type 2 diabetes mellitus with hypoglycemia without coma; I50.9 Heart failure, unspecified; E11.22 Type 2 diabetes mellitus with diabetic chronic kidney disease; D63.1 Anemia in chronic kidney disease; I25.10 Atherosclerotic heart disease of native coronary artery without angina pectoris; M89.9 Disorder of bone, unspecified; J45.909 Unspecified asthma, uncomplicated; F01.50 Vascular dementia, unspecified severity, without behavioral disturbance, psychotic disturbance, mood disturbance, and anxiety; M10.9 Gout, unspecified; I67.2 Cerebral atherosclerosis; Z79.82 Long term (current) use of aspirin; Z79.899 Other long term (current) drug therapy; Z79.891 Long term (current) use of opiate analgesic; Z79.01 Long term (current) use of anticoagulants; Z79.4 Long term (current) use of insulin; Z83.3 Family history of diabetes mellitus; Z82.49 Family history of ischemic heart disease and other diseases of the circulatory system
CPT/HCPCS: 36002; 36415; 36600; 37220; 37225; 37228; 37246; 37247; 70450; 70551; 71045; 74176; 75625; 75710; 75716; 76870; 76937; 76942; 80048; 80053; 80074; 80202; 82140; 82306; 82330; 82525; 82607; 82747; 82803; 82962; 84134; 84145; 84425; 85007; 85014; 85018; 85025; 85027; 85610; 85730; 86850; 86900; 86901; 86920; 87040; 87641; 93005; 93306; 94640; 94760; 96365; 96375; G0378; A9270-GY; C1714; C1725; C1769; C1884; C1887; C1894; C2623; J0171; J0360; J0461; J0690; J0696; J0885; J1170; J1644; J2370; J2405; J2543; J2704; J3370; J3490; J7040; J7042; J7050; P9016; Q9967; U0003